=== PATIENT | female | born 1945 | race Caucasian/White ===

== ENCOUNTER 2017-01-12 12:36 | Emergency (ER) | payer MEDICARE ==
[2017-01-12] MEDS ORDERED: Ketorolac INJ* 30 MG/ML 1 ML VIAL IV ONE (13:00)
[2017-01-12] MEDS ORDERED: Morphine INJ* 4 MG/ML 1 ML SYRINGE IV ONE (13:00)
[2017-01-12] MEDS ORDERED: NS 0.9% 1000 ML* 1,000 ML IV ONE (13:00)
[2017-01-12] MEDS ORDERED: Diazepam SYRINGE* 5 MG/ML SYRINGE IV ONE (13:02)
[2017-01-12] MEDS ORDERED: Dexamethasone IV* 4 MG/ML 1 ML (4 MG) IM ONE (13:02)
[2017-01-12] MEDS ORDERED: Morphine INJ* 2 MG/ML 1 ML SYRINGE IV ONE (13:04)
--- NOTE | 2017-01-12 14:08 | RAD ---
HISTORY: Headache COMPARISONS: September 28, 2008 TECHNIQUE: Multiple contiguous axial CT scans were obtained of the head without intravenous contrast. FINDINGS: HEMORRHAGE/INFARCT: There is no hemorrhage or acute infarct. MASSES/SHIFT: There is no mass or shift. EXTRA-AXIAL SPACES: There are no extra-axial fluid collections. SULCI AND VENTRICLES: The sulci and ventricles are normal in size and position for the patient's stated age. CEREBRUM: There are no focal parenchymal abnormalities. BRAINSTEM: There are no focal parenchymal abnormalities. CEREBELLUM: There are no focal parenchymal abnormalities. VESSELS: The vessels are grossly normal. PARANASAL SINUSES: The paranasal sinuses are clear. ORBITS: The orbits are unremarkable. BONES AND SOFT TISSUE: No bone or soft tissue abnormalities are noted. OTHER: None IMPRESSION: NO ACUTE INTRACRANIAL PATHOLOGY.
--- NOTE | 2017-01-12 14:11 | RAD ---
HISTORY: Neck pain COMPARISONS: September 28, 2008 TECHNIQUE: Multiple contiguous axial CT scans were obtained of the cervical spine without intravenous contrast, with coronal and sagittal multiplanar reformations. FINDINGS: BRAIN: The visualized brain is unremarkable CENTRAL CANAL: Evaluation of the central canal is limited on CT technique; however, there is no obvious canalicular mass or epidural hemorrhage. ALIGNMENT: There is straightening of the normal cervical lordosis. VERTEBRAL BODIES: There is multilevel anterolateral marginal osteophyte formation. JOINTS: There is osteoarthritis of the atlantoaxial, uncovertebral, and facet joints MUSCULATURE: Unremarkable INTERVERTEBRAL DISCS: There is diffuse loss of intervertebral disc height. AXIAL IMAGES: C2-C3: There is bilateral vertebral hypertrophy and facet hypertrophy. There is mild left neural foraminal narrowing. There is no osseous central canal stenosis. C3-C4: There is bilateral vertebral and facet hypertrophy. There is moderate bilateral neural foraminal narrowing. There is mild narrowing of the central canal.. C4-C5: There is bilateral vertebral and facet hypertrophy. There is severe right and moderate left neural foraminal narrowing. There is mild narrowing of the central canal. C5-C6: There is no osseous neural foraminal narrowing or central canal stenosis. C6-C7: There is no osseous neural foraminal narrowing or central canal stenosis. C7-T1: There is no osseous neural foraminal narrowing or central canal stenosis. SOFT TISSUES: The visualized soft tissues of the neck are unremarkable. The prevertebral fat stripe is preserved. OTHER: None. IMPRESSION: 1. DEGENERATIVE DISC DISEASE AND OSTEOARTHRITIS. 2. THERE IS MILD NARROWING OF THE CENTRAL CANAL AT C3-C4 AND C4-C5. 3. THERE IS MULTILEVEL NEURAL FORAMINAL NARROWING DESCRIBED ABOVE.
[2017-01-12 14:58] LABS: Hematocrit 37 % (35-47); Hemoglobin 11.7 g/dl (12.0-16.0); Mean Corpuscular HGB Conc 32 g/dl (31-36); Mean Corpuscular Hemoglobin 28 pg (27-31); Mean Corpuscular Volume 88 fL (80-97); Mean Platelet Volume 8 um3 (7.4-10.4); Red Blood Count 4.14 10^6/ul (4.0-5.4); Red Cell Distribution Width 14 % (10.5-15); White Blood Count 11.7 10^3/ul (3.5-10.8)
[2017-01-12 15:03] LABS: Urine Bilirubin Negative (Negative); Urine Glucose Negative (Negative); Urine Nitrite Negative (Negative)
[2017-01-12 15:19] LABS: Albumin 4.2 g/dL (3.2-5.2); Calcium 9.3 mg/dL (8.6-10.3); EGFR African American 44.2 (>60); EGFR Non-African American 34.3 (>60); Globulin 2.8 g/dL (2-4); Potassium 3.4 mmol/L (3.5-5.0); Total Bilirubin 0.3 mg/dL (0.2-1.0)
[2017-01-12] MEDS ORDERED: Potassium Chloride LIQUID* 20 MEQ PACKET PO ONE (15:29)
[2017-01-12 16:04] VITALS: BP 143/70
[2017-01-12 16:41] LABS: Erythrocyte Sed Rate 24 mm/Hr (0-40)
--- NOTE | 2017-01-12 17:56 | ED ---
Marycarmen Villeda Edward, scribed for Garrett Isaac MD on 01/12/17 at 1258 . Neck Pain - HPI Summary HPI Summary: 71 y/o female presents to ED c/o neck pain starting two days ago. The pain in the neck is described as a sharp, burning pain, located on the sides of the neck. The pain is rated 9/10 at triage. Associated sx: intermittent spasms down to her feet, dizziness characterized as room spinning. Denies fever, weakness in extremities. PMHx bone spurs and degenerative arthritis. Pt has chronic intermittent neck pain. - History of Current Complaint Chief Complaint: EDNeckComplaint Stated Complaint: STIFF NECK/DIZZY/HEADACHE Time Seen by Provider: 01/12/17 12:51 Hx Obtained From: Patient Onset/Duration Of Injury/Symptoms: Days Timing: Constant Severity Currently: Severe Pain Intensity: 9 Pain Scale Used: 0-10 Numeric Character: Sharp, Stiff, Burning - Allergies/Home Medications Allergies/Adverse Reactions: Allergies Allergy/AdvReac Type Severity Reaction Status Date / Time Atenolol [From Tenormin] Allergy Severe Wheezing Verified 06/24/16 14:01 Captopril [From Capoten] Allergy Intermediate Coughing Verified 06/24/16 14:01 Ciprofloxacin Allergy Intermediate See Comment Verified 06/24/16 14:01 Clonidine [From Catapres-TTS] Allergy Intermediate Dizziness Verified 06/24/16 14:01 Erythromycin Allergy Intermediate GI Upset Verified 06/24/16 14:01 Nisoldipine Allergy Intermediate Agitation Verified 06/24/16 14:01 Sulfa Drugs Allergy Intermediate Hives Verified 06/24/16 14:01 PMH/Surg Hx/FS Hx/Imm Hx Endocrine/Hematology History: Denies: Hx Diabetes Cardiovascular History: Reports: Hx Angioplasty, Hx Coronary Artery Disease, Hx Hypertension Denies: Hx Pacemaker/ICD Respiratory History: Reports: Hx Asthma - SEASONAL, Hx Sleep Apnea - DOES NOT USE HER C-PAP GI History: Reports: Hx Gastroesophageal Reflux Disease, Other GI Disorders - GASTRIC BYPASS STEVAN EN Y History: Denies: Hx Dialysis, Hx Renal Disease Musculoskeletal History: Reports: Hx Arthritis - NECK, SHOULDERS, Hx Fibromyalgia, Other Musculoskeletal History - FX 2 METATARSALS RIGHT FOOT 2010 Sensory History: Reports: Hx Cataracts - LENS IMPLANTS 2 YRS AGO Denies: Hx Contacts or Glasses, Hx Hearing Aid Opthamlomology History: Reports: Hx Cataracts - LENS IMPLANTS 2 YRS AGO Denies: Hx Contacts or Glasses Neurological History: Reports: Other Neuro Impairments/Disorders - FIBROMYALGIA , NEUROPATHY Psychiatric History: Denies: Hx Panic Disorder - Cancer History Hx Chemotherapy: No Hx Radiation Therapy: No - Surgical History Surgery Procedure, Year, and Place: BILATERAL CATARACTS, GASTRIC BYPASS 08/2010, INTERNAL HERNIA REPAIR 09/2011, DILATED STRICTURE &10/2011, HEART CATH 05/2007, HYSTERECTOMY 10/1980, RT OVARY REMOVED 05/1984 CHOLECYSTECTOMY 12/1993, ANT CYSTOCELE REPAIR 08/1994 Hx Anesthesia Reactions: No Infectious Disease History: Denies: Traveled Outside the [place] in Last 30 Days - Social History Occupation: Retired Lives: With Family Alcohol Use: None Hx Substance Use: No Substance Use Type: Reports: None Hx Tobacco Use: No Smoking Status (MU): Never Smoked Tobacco Have You Smoked in the Last Year: No Review of Systems Constitutional: Negative Eyes: Negative ENT: Negative Cardiovascular: Negative Respiratory: Negative Gastrointestinal: Negative Genitourinary: Negative Positive: Myalgia - Neck pain, with intermittent spasms down to her feet Skin: Negative Neurological: Other - Dizziness Psychological: Normal All Other Systems Reviewed And Are Negative: Yes Physical Exam - Summary Physical Exam Summary: VITAL SIGNS: Reviewed. GENERAL: ~Patient is a well-developed and nourished female who is lying comfortable in the stretcher. ~Patient is not in any acute respiratory distress. HEAD AND FACE: No signs of trauma. ~No ecchymosis, hematomas or skull depressions. No sinus tenderness. EYES: PERRLA, EOMI x 2, No injected conjunctiva, no nystagmus. EARS: Hearing grossly intact. Ear canals and tympanic membranes are within normal limits. MOUTH: Oropharynx within normal limits. NECK: Supple, trachea is midline, no adenopathy, no JVD, no carotid bruit, no c- spine tenderness, neck with full ROM. CHEST: Symmetric, no tenderness at palpation LUNGS: Clear to auscultation bilaterally. No wheezing or crackles. CVS: Regular rate and rhythm, S1 and S2 present, no murmurs or gallops appreciated. ABDOMEN: Soft, non-tender. No signs of distention. No rebound no guarding, and no masses palpated. Bowel sounds are normal. EXTREMITIES: FROM in all major joints, no edema, no cyanosis or clubbing. NEURO: Alert and oriented x 3. No acute neurological deficits. Speech is normal and follows commands. SKIN: Dry and warm MUSCULOSKELETAL: Tenderness @ trapezius and external subclavius muscles bilaterally. No C-Spine tenderness. No photophobia. No meningeal signs. Triage Information Reviewed: Yes Vital Signs On Initial Exam: Initial Vitals Temp Pulse Resp BP Pulse Ox 96.2 F 70 16 161/69 100 01/12/17 12:38 01/12/17 12:38 01/12/17 12:38 01/12/17 12:38 01/12/17 12:38 Vital Signs Reviewed: Yes Diagnostics - Vital Signs Vital Signs Temp Pulse Resp BP Pulse Ox 01/12/17 12:38 96.2 F 70 16 161/69 100 - Laboratory Lab Results: Lab Results 01/12/17 01/12/17 01/12/17 Range/Units 14:38 14:38 14:38 WBC 11.7 H (3.5-10.8) 10^3/ul RBC 4.14 (4.0-5.4) 10^6/ul Hgb 11.7 L (12.0-16.0) g/dl Hct 37 (35-47) % MCV 88 (80-97) fL MCH 28 (27-31) pg MCHC 32 (31-36) g/dl RDW 14 (10.5-15) % Plt Count 278 (150-450) 10^3/ul MPV 8 (7.4-10.4) um3 Neut % (Auto) 85.5 H (38-83) % Lymph % (Auto) 7.8 L (25-47) % [place] % (Auto) 5.4 (1-9) % Eos % (Auto) 1.0 (0-6) % Baso % (Auto) 0.3 (0-2) % Absolute Neuts (auto) 10.1 H (1.5-7.7) 10^3/ul Absolute Lymphs (auto) 0.9 L (1.0-4.8) 10^3/ul Absolute Monos (auto) 0.6 (0-0.8) 10^3/ul Absolute Eos (auto) 0.1 (0-0.6) 10^3/ul Absolute Basos (auto) 0 (0-0.2) 10^3/ul Absolute Nucleated RBC 0 10^3/ul Nucleated RBC % 0 ESR 24 (0-40) mm/Hr Sodium 138 (133-145) mmol/L Potassium 3.4 L (3.5-5.0) mmol/L Chloride 101 (101-111) mmol/L Carbon Dioxide 29 (22-32) mmol/L Anion Gap 8 (2-11) mmol/L BUN 21 (6-24) mg/dL Creatinine 1.50 H (0.51-0.95) mg/dL Est GFR ( Amer) 44.2 (>60) Est GFR (Non-Af Amer) 34.3 (>60) BUN/Creatinine Ratio 14.0 (8-20) Glucose 85 (70-100) mg/dL Calcium 9.3 (8.6-10.3) mg/dL Total Bilirubin 0.30 (0.2-1.0) mg/dL AST 27 (13-39) U/L ALT 25 (7-52) U/L Alkaline Phosphatase 117 H (34-104) U/L Total Protein 7.0 (6.4-8.9) g/dL Albumin 4.2 (3.2-5.2) g/dL Globulin 2.8 (2-4) g/dL Albumin/Globulin Ratio 1.5 (1-3) Urine Color Yellow Urine Appearance Clear Urine pH 6.0 (5-9) Ur Specific [place] 1.011 (1.010-1.030) Urine Protein Negative (Negative) Urine Ketones Negative (Negative) Urine Blood Negative (Negative) Urine Nitrate Negative (Negative) Urine Bilirubin Negative (Negative) Urine Urobilinogen Negative (Negative) Ur Leukocyte Esterase Negative (Negative) Urine Glucose Negative (Negative) Result Diagrams: 01/12/17 14:38 01/12/17 14:38 Lab Statement: Any lab studies that have been ordered have been reviewed, and results considered in the medical decision making process. - CT CSPINE CT CT Interpretation: Positive (See Comments) - 1. DEGENERATIVE DISC DISEASE AND OSTEOARTHRITIS. 2. THERE IS MILD NARROWING OF THE CENTRAL CANAL AT C3-C4 AND C4 -C5. 3. THERE IS MULTILEVEL NEURAL FORAMINAL NARROWING DESCRIBED ABOVE. CT Interpretation Completed By: Radiologist BRAIN CT CT Interpretation: No Acute Changes - NO ACUTE INTRCRANIAL PATHOLOGY CT Interpretation Completed By: Radiologist Neck Course/Dx - Course Assessment/Plan: 71 y/o female presents to ED c/o neck pain starting two days ago. The pain in the neck is described as a sharp, burning pain, located on the sides of the neck. The pain is rated 9/10 at triage. Associated sx: intermittent spasms down to her feet, dizziness characterized as room spinning. Denies fever, weakness in extremities. PMHx bone spurs and degenerative arthritis. Pt has chronic intermittent neck pain. CSPINE CT SHOWS 1. DEGENERATIVE DISC DISEASE AND OSTEOARTHRITIS.2. THERE IS MILD NARROWING OF THE CENTRAL CANAL AT C3-C4 AND C4-C5. 3. THERE IS MULTILEVEL NEURAL FORAMINAL NARROWING DESCRIBED ABOVE. BRAIN CT SHOWS NO ACUTE INTRACRANIAL PATHOLOGY. Test results are without significant abnormalities except WBC 11.7. UA (-) UTI. After the PE, there were no meningeal signs. Pt has no cervical tenderness and no photophobia. Therefore my suspicion for meningitis was low. However, the pt has (+) muscle tenderness and also a hx of fibromyalgia which has probably been worsened with spasms of the upper back and the neck muscles. In the ED course the pt was given Decadron, Toradol, Valium, and Morphine. After these medications the pt reports feeling better. 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 At this point the sx have resolved. The pt is able to ambulate with no abnormal gait, subsided pain and no dizziness. The patient rates the pain at 1/10. She will be d/c home with f/u with PCP. I have no suspicion for dissection since there is no pain any more, no carotid bruits, no CHAMBERLAIN and no other complaints. I discussed all the findings and test results with the patient. Patient was instructed to return to the emergency room immediately if any of the symptoms return or worsens. Plan of care was discussed with the patient and understands and agrees. All questions were answered at patient satisfaction. There were no further complaints or concerns. - Diagnoses Provider Diagnoses: Neck pain, Musculoskeletal pain Discharge - Discharge Plan Condition: Stable Disposition: HOME Prescriptions: Diazepam TAB(*) [Valium TAB(*)] 2 mg PO TID PRN #12 tab MDD 6 mg PRN Reason: Pain Methylprednisolone [Medrol Dosepak 4 MG*] 4 mg PO .SEE HELDER INSTRUCTION #1 helder oxyCODONE/Acetamin 5/325 MG* [Percocet 5/325 TAB*] 1 tab PO Q6H PRN #12 tab MDD 4 PRN Reason: Pain Patient Education Materials: Neck Pain (ED), Musculoskeletal Pain (ED) Referrals: Devang An MD [Primary Care Provider] - 3 Days (PLEASE F/U IN 2-3 DAYS) The documentation as recorded by the Marycarmen roger Edward accurately reflects the service I personally performed and the decisions made by Poncho roland Walter, MD.
== END 2017-01-12 16:22 | disposition home or self-care (01) ==
LOC: ED 12:36
DX: M54.2 Cervicalgia (principal); M79.1 Myalgia; M50.30 Other cervical disc degeneration, unspecified cervical region; Z86.79 Personal history of other diseases of the circulatory system; R51 Headache
CPT/HCPCS: 36415; 70450; 72125; 80053; 81003; 85025; 85652; 96374; 96375; 99283; A9270-GY; J1100; J1885; J2270; J3360

== ENCOUNTER 2017-05-09 12:09 | Emergency (ER) | payer MEDICARE ==
[2017-05-09 12:16] VITALS: BP 172/88
[2017-05-09] MEDS ORDERED: Phenazopyridine TAB* 100 MG PO ONE (12:34)
[2017-05-09 13:03] LABS: Urine Bacteria 1+ (Absent)
--- NOTE | 2017-05-09 15:51 | ED ---
Martina Villeda Gabriel, scribed for Nate Fontana MD on 05/09/17 at 1232 . GI/ HPI - HPI Summary HPI Summary: This patient is a 71 year old F presenting to [facility] with a chief complaint of hematuria since yesterday. The patient rates the pain 9/10 in severity. Symptoms aggravated by urination. Patient reports right sided back pain, decreased urination,ABD pain, pressure in bladder, and increased sensation to urinate. - History of Current Complaint Chief Complaint: EDUrogenitalProblems Time Seen by Provider: 05/09/17 12:25 Stated Complaint: POSSIBLE UTI Hx Obtained From: Patient Onset/Duration: Started Days Ago - 1, Still Present Timing: Constant Current Severity: Moderate Pain Intensity: 9 Location of Pain: Suprapubic Pain Radiates to: Back Associated Signs and Symptoms: Positive: Other: - right sided back pain, decreased urination, ABD pain, pressure in bladder, and increased sensation to urinate. Aggravating Factor(s): Urination - Allergy/Home Medications Allergies/Adverse Reactions: Allergies Allergy/AdvReac Type Severity Reaction Status Date / Time Atenolol [From Tenormin] Allergy Severe Wheezing Verified 06/24/16 14:01 Captopril [From Capoten] Allergy Intermediate Coughing Verified 06/24/16 14:01 Ciprofloxacin Allergy Intermediate See Comment Verified 06/24/16 14:01 Clonidine [From Catapres-TTS] Allergy Intermediate Dizziness Verified 06/24/16 14:01 Erythromycin Allergy Intermediate GI Upset Verified 06/24/16 14:01 Nisoldipine Allergy Intermediate Agitation Verified 06/24/16 14:01 Sulfa Drugs Allergy Intermediate Hives Verified 06/24/16 14:01 PMH/Surg Hx/FS Hx/Imm Hx Previously Healthy: No Endocrine/Hematology History: Denies: Hx Diabetes Cardiovascular History: Reports: Hx Angioplasty, Hx Coronary Artery Disease, Hx Hypertension Denies: Hx Pacemaker/ICD Respiratory History: Reports: Hx Asthma - SEASONAL, Hx Sleep Apnea - DOES NOT USE HER C-PAP GI History: Reports: Hx Gastroesophageal Reflux Disease, Other GI Disorders - GASTRIC BYPASS STEVAN EN Y History: Denies: Hx Dialysis, Hx Renal Disease Musculoskeletal History: Reports: Hx Arthritis - NECK, SHOULDERS, Hx Fibromyalgia, Other Musculoskeletal History - FX 2 METATARSALS RIGHT FOOT 2010 Sensory History: Reports: Hx Cataracts - LENS IMPLANTS 2 YRS AGO Denies: Hx Contacts or Glasses, Hx Hearing Aid Opthamlomology History: Reports: Hx Cataracts - LENS IMPLANTS 2 YRS AGO Denies: Hx Contacts or Glasses Neurological History: Reports: Other Neuro Impairments/Disorders - FIBROMYALGIA , NEUROPATHY Psychiatric History: Denies: Hx Panic Disorder - Cancer History Hx Chemotherapy: No Hx Radiation Therapy: No - Surgical History Surgery Procedure, Year, and Place: BILATERAL CATARACTS, GASTRIC BYPASS 08/2010, INTERNAL HERNIA REPAIR 09/2011, DILATED STRICTURE &10/2011, HEART CATH 05/2007, HYSTERECTOMY 10/1980, RT OVARY REMOVED 05/1984 CHOLECYSTECTOMY 12/1993, ANT CYSTOCELE REPAIR 08/1994 Hx Anesthesia Reactions: No Infectious Disease History: No Infectious Disease History: Denies: Traveled Outside the [place] in Last 30 Days - Family History Known Family History: Positive: Cardiac Disease, Hypertension, Diabetes - Social History Alcohol Use: None Hx Substance Use: No Substance Use Type: Reports: None Hx Tobacco Use: No Smoking Status (MU): Never Smoked Tobacco Have You Smoked in the Last Year: No Review of Systems Positive: Abdominal Pain Positive: burning, hematuria, urgency, other - decreased urination and pressure in bladder Positive: Other - right sided back pain All Other Systems Reviewed And Are Negative: Yes Physical Exam - Summary Physical Exam Summary: Appearance: The patient is well-nourished in no acute distress and in no acute pain. Skin: The skin is warm and dry and skin color reflects adequate perfusion. HEENT: ~The head is normocephalic and atraumatic. The pupils are equal and reactive. The conjunctivae are clear and without drainage. ~Nares are patent and without drainage. ~Mouth reveals moist mucous membranes and the throat is without erythema and exudate. ~The external ears are intact. The ear canals are patent and without drainage. The tympanic membranes are intact. Neck: the neck is supple with full range of motion and non-tender. There are no carotid bruits. ~There is no neck vein distension. Respiratory: Chest is non-tender. ~Lungs are clear to auscultation and breath sounds are symmetrical and equal. Cardiovascular: Heart is regular rate and rhythm. ~There is no murmur or rub auscultated. ~~There is no peripheral edema and pulses are symmetrical and equal. Abdomen: The abdomen is soft with mild suprapubic tenders no CVA. ~There are normal bowel sounds heard in all four quadrants and there is no organomegaly palpated. Bedside US: less than 15cc of urine in bladder Musculoskeletal: There is no back tenderness noted. ~Extremities are non-tender with full range of motion. ~There is good capillary refill. ~There is no peripheral edema or calf tenderness elicited. Neurological: Patient is alert and oriented to person, place and time. ~The patient has symmetrical motor strength in all four extremities. ~Cranial nerves are grossly intact. Deep tendon reflexes are symmetrical and equal in all four extremities. Psychiatric: The patient has an appropriate affect and does not exhibit any anxiety or depression. Triage Information Reviewed: Yes Vital Signs On Initial Exam: Initial Vitals Temp Pulse Resp BP Pulse Ox 98 F 70 16 172/88 98 05/09/17 12:12 05/09/17 12:12 05/09/17 12:12 05/09/17 12:12 05/09/17 12:12 Vital Signs Reviewed: Yes Diagnostics - Vital Signs Vital Signs Temp Pulse Resp BP Pulse Ox 05/09/17 12:12 98 F 70 16 172/88 98 - Laboratory Lab Results: Lab Results 05/09/17 Range/Units 12:44 Urine Color Red A Urine Appearance Urine pH (5-9) Ur Specific [place] 1.024 (1.010-1.030) Urine Protein (Negative) Urine Ketones (Negative) Urine Blood (Negative) Urine Nitrate (Negative) Urine Bilirubin (Negative) Urine Urobilinogen (Negative) Ur Leukocyte Esterase (Negative) Urine WBC (Auto) 3+(>20/hpf) H (Absent) Urine RBC (Auto) 3+(>10/hpf) H (Absent) Urine Bacteria 1+ H (Absent) Urine Glucose (Negative) Urine Ascorbic Acid (Negative) Lab Statement: Any lab studies that have been ordered have been reviewed, and results considered in the medical decision making process. GIGU Course/Dx - Course Course Of Treatment: Ms. Asif presented with dysuria and urgency starting yesterday and getting much worse today with gross hematuria. She had no retained urine on U/S and her U/A was positive for both WBC's and RBC's. I will treat her UTI and recommend F/U. - Diagnoses Provider Diagnoses: UTI (urinary tract infection) Discharge - Discharge Plan Condition: Stable Disposition: HOME Prescriptions: Nitrofurantoin Monohyd Macro [Macrobid] 100 mg PO BID #14 cap Phenazopyridine 200 mg (NF) [Pyridium 200 MG tab *] 200 mg PO TID #9 tab Patient Education Materials: Nitrofurantoin (By mouth), Phenazopyridine (By mouth), Urinary Traction Infection in Older Adults (ED) Referrals: Daren Root MD [Primary Care Provider] - 3 Days Additional Instructions: RETURN TO THE EMERGENCY DEPARTMENT FOR CHANGING OR WORSENING SYMPTOMS. The documentation as recorded by the Martina roger Gabriel accurately reflects the service I personally performed and the decisions made by , Nate Fontana MD.
--- NOTE | 2017-05-11 20:34 | PN ---
Progress Note - Progress Note Date of Service: 05/11/17 Note: Patient urine culture grew E coli >100,000. patient placed on macrobid which final culture shows is sensitive to. no further action needed.
--- NOTE | 2017-05-12 12:20 | ED ---
Progress - Progress Note Progress Note: Pt's final urine cx reveals sens to nitrofurantoin which pt was rx'd- no change at this time. Course/Dx - Course Course Of Treatment: Ms. Asif presented with dysuria and urgency starting yesterday and getting much worse today with gross hematuria. She had no retained urine on U/S and her U/A was positive for both WBC's and RBC's. I will treat her UTI and recommend F/U. - Diagnoses Provider Diagnoses: UTI (urinary tract infection)
== END 2017-05-09 14:08 | disposition home or self-care (01) ==
LOC: ED 12:09
DX: N39.0 Urinary tract infection, site not specified (principal)
CPT/HCPCS: 81003; 87077; 87086; 87186; 99282; A9270-GY

== ENCOUNTER 2017-06-03 17:39 | Observation (INO) | payer MEDICARE ==
[2017-06-03] MEDS ORDERED: Ketorolac INJ* 15 MG/ML 1 ML VIAL IV ONE (19:50)
[2017-06-03] MEDS ORDERED: NS 0.9% 1000 ML* 1,000 ML IV ONE (19:50)
[2017-06-03] MEDS ORDERED: Ondansetron INJ* 2 MG/ML VIAL IV ONE (19:50)
[2017-06-03 20:24] LABS: ABS Basophils 0 10^3/ul (0-0.2); ABS Eosinophils 0.1 10^3/ul (0-0.6); ABS Lymphocytes 0.9 10^3/ul (1.0-4.8); ABS Monocytes 0.5 10^3/ul (0-0.8); ABS Neutrophils 4.3 10^3/ul (1.5-7.7); ABS Nucleated RBC 0 10^3/ul; Eosinophil % 2.4 % (0-6); Hematocrit 41 % (35-47); Hemoglobin 13.3 g/dl (12.0-16.0); Mean Corpuscular HGB Conc 33 g/dl (31-36); Mean Corpuscular Hemoglobin 29 pg (27-31); Mean Corpuscular Volume 90 fL (80-97); Mean Platelet Volume 8 um3 (7.4-10.4); Nucleated Red Blood Cells % 0; Platelet Count 216 10^3/ul (150-450); Red Blood Count 4.53 10^6/ul (4.0-5.4); Red Cell Distribution Width 17 % (10.5-15); White Blood Count 5.9 10^3/ul (3.5-10.8)
[2017-06-03 20:33] LABS: INR 0.93 (0.77-1.02)
[2017-06-03 20:36] LABS: Urine Appearance Clear; Urine Blood 1+ (Negative); Urine Color Straw; Urine Ketones Negative (Negative); Urine Protein Negative (Negative); Urine Specific Gravity 1.005 (1.010-1.030); Urine Urobilinogen Negative (Negative)
[2017-06-03 20:37] LABS: EGFR Non-African American 45.6 (>60)
[2017-06-03] MEDS ORDERED: Iodixanol* (CONTRAST) 320 MG/ML 100 ML SDV IV ONE (21:16)
[2017-06-03] MEDS ORDERED: Piperacillin/Tazobac ADVAN(*) 3.375 GM in NS 0.9% 100 ML* 100 ML IVPB ONE (21:27)
[2017-06-03] MEDS: Morphine INJ* 2 MG/ML 1 ML SYRINGE (TWO MG - NEW SYRINGE VERSION) IV PRN ×2 (22:28→23:02)
[2017-06-03] MEDS ORDERED: Morphine INJ* 4 MG/ML 1 ML CARPUJECT IV ONE (22:59)
[2017-06-04] MEDS ORDERED: Ondansetron INJ* 2 MG/ML VIAL IV PRN (00:15)
[2017-06-04] MEDS ORDERED: CMCS: Melatonin (NF) 3 MG TAB PO PRN (00:15)
--- NOTE | 2017-06-04 00:22 | ED ---
Scotty Villeda Angela, scribed for Esteban Costa MD on 06/03/17 at 1934 . Complex/Multi-Sys Presentation - HPI Summary HPI Summary: This pt is a 72 y/o female [facility] [place] [facility] [place]/o abd pain and back pain. Pt also reports 2 days of a migraine headache, pain after urinating, and an "awful " taste in her mouth. She states she has a history of migraines, usually has them a couple of times a year. Pt notes she comes to the ED for migraine treatment. Denies taking migraine medications at home. She denies fever, diarrhea, vomiting, constipation. Surgeries include hysterectomy and Stevan-en-y gastric bypass. - History Of Current Complaint Chief Complaint: EDAbdPain Time Seen by Provider: 06/03/17 19:19 Hx Obtained From: Patient Onset/Duration: Lasting Days, Still Present Timing: Days Location: Pain At: - abd and back Character: Migraine Associated Signs And Symptoms: Positive: Headache, Abdominal Pain, Back Pain, Dysuria - pain after voiding, Other - NEG: constipation. Negative: Nausea, Vomiting, Diarrhea, Fever - Allergies/Home Medications Allergies/Adverse Reactions: Allergies Allergy/AdvReac Type Severity Reaction Status Date / Time Atenolol [From Tenormin] Allergy Severe Wheezing Verified 06/24/16 14:01 Ciprofloxacin Allergy Mild Tendonitis Verified 06/04/17 00:15 Sulfa Drugs Allergy Mild Hives Verified 06/04/17 00:15 Captopril [From Capoten] AdvReac Mild Coughing Verified 06/04/17 00:15 Clonidine [From Catapres-TTS] AdvReac Mild Dizziness Verified 06/04/17 00:15 Erythromycin AdvReac Mild GI Upset Verified 06/04/17 00:15 Nisoldipine AdvReac Mild Agitation Verified 06/04/17 00:15 PMH/Surg Hx/FS Hx/Imm Hx Endocrine/Hematology History: Denies: Hx Diabetes Cardiovascular History: Reports: Hx Angioplasty, Hx Coronary Artery Disease, Hx Hypertension Denies: Hx Pacemaker/ICD Respiratory History: Reports: Hx Asthma - SEASONAL, Hx Sleep Apnea - DOES NOT USE HER C-PAP GI History: Reports: Hx Gastroesophageal Reflux Disease, Other GI Disorders - GASTRIC BYPASS STEVNA EN Y History: Denies: Hx Dialysis, Hx Renal Disease Musculoskeletal History: Reports: Hx Arthritis - NECK, SHOULDERS, Hx Fibromyalgia, Other Musculoskeletal History - FX 2 METATARSALS RIGHT FOOT 2010 Sensory History: Reports: Hx Cataracts - LENS IMPLANTS 2 YRS AGO Denies: Hx Contacts or Glasses, Hx Hearing Aid Opthamlomology History: Reports: Hx Cataracts - LENS IMPLANTS 2 YRS AGO Denies: Hx Contacts or Glasses Neurological History: Reports: Other Neuro Impairments/Disorders - FIBROMYALGIA , NEUROPATHY Psychiatric History: Denies: Hx Panic Disorder - Cancer History Hx Chemotherapy: No Hx Radiation Therapy: No - Surgical History Surgery Procedure, Year, and Place: BILATERAL CATARACTS, GASTRIC BYPASS 08/2010, INTERNAL HERNIA REPAIR 09/2011, DILATED STRICTURE &10/2011, HEART CATH 05/2007, HYSTERECTOMY 10/1980, RT OVARY REMOVED 05/1984 CHOLECYSTECTOMY 12/1993, ANT CYSTOCELE REPAIR 08/1994 Hx Anesthesia Reactions: No - Immunization History Date of Tetanus Vaccine: UTD Date of Influenza Vaccine: 02/2017 Infectious Disease History: No Infectious Disease History: Denies: Traveled Outside the [place] in Last 30 Days - Family History Known Family History: Positive: Cardiac Disease, Hypertension, Diabetes - Social History Alcohol Use: None Hx Substance Use: No Substance Use Type: Reports: None Hx Tobacco Use: No Smoking Status (MU): Never Smoked Tobacco Have You Smoked in the Last Year: No Review of Systems Negative: Fever ENT: Other - awful taste in mouth Positive: Abdominal Pain. Negative: Diarrhea, Other - constipation Genitourinary: Other - pain after voiding Musculoskeletal: Other - back pain Positive: Headache - migraine All Other Systems Reviewed And Are Negative: Yes Physical Exam - Summary Physical Exam Summary: VITAL SIGNS: Reviewed. GENERAL: Patient is a well-developed and nourished female who is lying comfortable in the stretcher. Patient is not in any acute respiratory distress. HEAD AND FACE: No signs of trauma. No ecchymosis, hematomas or skull depressions. No sinus tenderness. EYES: PERRLA, EOMI x 2, No injected conjunctiva, no nystagmus. EARS: Hearing grossly intact. Ear canals and tympanic membranes are within normal limits. MOUTH: Oropharynx within normal limits. NECK: Supple, trachea is midline, no adenopathy, no JVD, no carotid bruit, no c- spine tenderness, neck with full ROM. CHEST: Symmetric, no tenderness at palpation LUNGS: Clear to auscultation bilaterally. No wheezing or crackles. CVS: Regular rate and rhythm, S1 and S2 present, no murmurs or gallops appreciated. ABDOMEN: Soft. Suprapubic tenderness. No signs of distention. No rebound no guarding, and no masses palpated. Bowel sounds are normal. NO CVA tenderness. EXTREMITIES: FROM in all major joints, no edema, no cyanosis or clubbing. NEURO: Alert and oriented x 3. No acute neurological deficits. Speech is normal and follows commands. SKIN: Dry and warm Triage Information Reviewed: Yes Vital Signs On Initial Exam: Initial Vitals Temp Pulse Resp BP Pulse Ox 97.5 F 65 20 202/90 96 06/03/17 17:41 06/03/17 17:41 06/03/17 17:41 06/03/17 17:41 06/03/17 17:41 Vital Signs Reviewed: Yes Diagnostics - Vital Signs Vital Signs Temp Pulse Resp BP Pulse Ox 06/03/17 17:41 97.5 F 65 20 202/90 96 - Laboratory Result Diagrams: 06/03/17 20:13 06/03/17 20:13 Lab Statement: Any lab studies that have been ordered have been reviewed, and results considered in the medical decision making process. - CT Abdomen/Pelvis CT CT Interpretation: Positive (See Comments) - IMPRESSION: There are mild dependent changes at the lung bases. Small hiatal hernia. Postsurgical changes of a gastric bypass surgery and cholecystectomy are again noted. There is stable small cyst in the left kidney. The upper abdominal visceral organs are otherwise unremarkable. There are mild mesenteric inflammatory changes associated with a loop of ileum in the mid to lower abdomen which could be secondary to enteritis. Correlate for history of inflammatory bowel disease. Enteric diverticulitis and malignancy are considered less likely. There are several mildly distended loops of bowel proximal to this and relatively normal caliber distally with normal progression of contrast to the colon. Findings may represent ileus versus partial obstruction. Colonic diverticulosis predominately sigmoid colon without evidence of acute diverticulitis. The uterus is absent. No intra-abdominal free air, free fluid, or loculated collections. Sclerotic lesion in the left iliac body suspected to be a bone island in the absence of known or suspected malignancy. Dr. Costa has reviewed this radiology report. CT Interpretation Completed By: Radiologist Re-Evaluation - Re-Evaluation First Eval Re-Evaluation Time: 22:58 Comment: I reviewed the CT results with the pt. Complex Multi-Symp Course/Dx Course Of Treatment: This pt is a 72 y/o female presenting to [facility] c/o abd pain and back pain. Pt also reports 2 days of a migraine headache, pain after urinating, and an "awful" taste in her mouth. In the ED course, the pt was given IV fluids, morphine, Toradol, and Zofran. CT abdomen/pelvis shows there are mild mesenteric inflammatory changes associated with a loop of ileum in the mid to lower abdomen which could be secondary to enteritis. Correlate for history of inflammatory bowel disease. Enteric diverticulitis and malignancy are considered less likely. There are several mildly distended loops of bowel proximal to this and relatively normal caliber distally with normal progression of contrast to the colon. Findings may represent ileus versus partial obstruction. I discussed pt care with Dr. Cho, hospitalist, who has agreed to admit the pt. Dx: UTI, small bowel obstruction, and headache. - Diagnoses Provider Diagnoses: Small bowel obstruction, Headache, Urinary tract infection - Physician Notifications Discussed Care Of Patient With: Alexx Cho Time Discussed With Above Provider: 00:11 Instructed by Provider To: Other - I discussed pt care with Dr. Cho, hospitalist, who has agreed to admit the pt. Discharge - Discharge Plan Condition: Stable Disposition: ADMITTED TO [facility] Referrals: Daren Root MD [Primary Care Provider] - The documentation as recorded by the Scotty roger Angela accurately reflects the service I personally performed and the decisions made by me, Esteban Costa MD.
[2017-06-04] MEDS: NS 0.9% 1000 ML* 1,000 ML IV SCH ×2 (03:09→13:24)
[2017-06-04] MEDS ORDERED: Morphine INJ* 2 MG/ML 1 ML SYRINGE (TWO MG - NEW SYRINGE VERSION) ONE (03:22)
--- NOTE | 2017-06-04 05:58 | HP ---
H&P (Free Text) History and Physical: PCP: ASHWINI Root MD Date/Time: 06/04/2017 0010 CC: abdominal & LBP pain HPI: Mrs Asif is a 72YO female HX fibromyalgia, Ruen-Y, Raynauds, & CAD reporting onset of lower abdominal pain reminiscent of a UTI ~12 days ago which she has been monitoring, but it has been gradually progressing prompting this evaluation. She does report dysuria without frequency or urgency. She denies chest pain, SOB, palpitations, urgency/frequency of urine, chest pain, F/C, N/V , sweats, or other issues. Bowel movements are unchanged. PMedHx fibromyalgia L femoral neuralgia CAD Menier's disease Raynaud's GERD Ambulatory Orders Nursing to reconcile. Amitriptyline TAB* [Elavil TAB*] 50 mg PO BEDTIME 03/31/12 Aspirin [Aspir-81] 81 mg PO QPM 03/31/12 Biotin [Biotin Forte] 5 mg PO QPM 03/31/12 Cyanocobalamin [Vitamin B 12] 100 mcg PO QAM 03/31/12 DULoxetine CAP* [Cymbalta CAP*] 60 mg PO QPM 03/31/12 Omeprazole CAP* [Prilosec CAP* 20 MG] 40 mg PO BID 03/31/12 Potassium Chlor TAB* [Klor Con 10 ER TAB*] 10 meq PO QID 03/31/12 Gabapentin 300 mg PO QPM 10/11/13 Calcium W/ Vitamins D & K [Calcium + D] 1 chw PO BID 05/02/15 Diazepam TAB(*) [Valium TAB(*)] 2.5 mg PO BID 05/02/15 Simvastatin TAB(NF) [Zocor(NF)] 20 mg PO 1700 05/02/15 Triamterene/HCTZ 37.5-25 MG* [Dyazide CAP*] 1 cap PO QAM 05/02/15 Diltiazem CD CAP* [Cardizem CD CAP*] 240 mg PO DAILY 06/24/16 Diazepam TAB(*) [Valium TAB(*)] 2 mg PO TID PRN #12 tab MDD 6 mg 01/12/17 Sucralfate TAB* [Carafate*] 1 gm PO ACHS 05/13/17 Allergies Atenolol [From Tenormin] Allergy (Severe, Verified 06/24/16 14:01) Wheezing Ciprofloxacin Allergy (Mild, Verified 06/04/17 00:15) Tendonitis Sulfa Drugs Allergy (Mild, Verified 06/04/17 00:15) Hives Captopril [From Capoten] Adverse Reaction (Mild, Verified 06/04/17 00:15) Coughing Clonidine [From Catapres-TTS] Adverse Reaction (Mild, Verified 06/04/17 00:15) Dizziness Dizziness/Insomnia Erythromycin Adverse Reaction (Mild, Verified 06/04/17 00:15) GI Upset GI Upset/Rash Nisoldipine Adverse Reaction (Mild, Verified 06/04/17 00:15) Agitation PSurgHx ventral hernia repair 2014 OU cataract extractions 2013 internal hernia repair 2011 Ruen-Y 2011 cholecystectomy 1994 hysterectomy 1980 SocHx: no tobacco, <1 beer/week, no recreational drugs; lives with her ; 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; full code status FamHx: reviewed, non-contributory to presentation ROS: as above, otherwise reviewed and all were negative vitals: Vital Signs Temp 36.6 C 06/04/17 02:54 Pulse 60 06/04/17 02:54 Resp 18 06/04/17 03:23 BP 170/67 06/04/17 02:54 Pulse Ox 94 06/04/17 02:54 Intake & Output 06/03/17 06/03/17 06/04/17 11:59 23:59 11:59 Intake Total 1100 0 Output Total 400 Balance 1100 -400 Weight 77.111 kg 74.843 kg Intake: IV Fluids 1100 Oral 0 Output: Urine 400 Constitutional: NAD, normally developed, overweight white female HEENM: atraumatic; sclera/conjunctiva: anicteric/clear; hearing: clinically intact; oropharynx: clear, mucosa moist Neck: soft tissue: non-tender; thyroid: normal Pulmonary: clear to auscultation bilaterally, good aeration, no accessory muscle use CV: RR/RR, normal S1S2, no carotid bruit, no jugular venous distention, 2+ B DP/ PT, no edema Abdominal: soft, non-distended, diffusely mildly tender, no rebound/guarding/ rigidity, normoactive bowel sounds, no hepatosplenomegaly or masses, no costovertebral angle tenderness Musculoskeletal: general: grossly intact, no palpable tenderness Integumental: normal appearance and texture of exposed skin Psychiatric orientation: AA&O to PPS affect: calm mood: cooperative eye contact: good content: reliable responses: timely insight: good Testing: Lab Results 06/03/17 06/03/17 06/03/17 Range/Units 20:13 20:13 20:13 WBC 5.9 (3.5-10.8) 10^3/ul RBC 4.53 (4.0-5.4) 10^6/ul Hgb 13.3 (12.0-16.0) g/dl Hct 41 (35-47) % MCV 90 (80-97) fL MCH 29 (27-31) pg MCHC 33 (31-36) g/dl RDW 17 H (10.5-15) % Plt Count 216 (150-450) 10^3/ul MPV 8 (7.4-10.4) um3 Neut % (Auto) 73.0 (38-83) % Lymph % (Auto) 16.0 L (25-47) % Mcminn % (Auto) 8.3 (1-9) % Eos % (Auto) 2.4 (0-6) % Baso % (Auto) 0.3 (0-2) % Absolute Neuts (auto) 4.3 (1.5-7.7) 10^3/ul Absolute Lymphs (auto) 0.9 L (1.0-4.8) 10^3/ul Absolute Monos (auto) 0.5 (0-0.8) 10^3/ul Absolute Eos (auto) 0.1 (0-0.6) 10^3/ul Absolute Basos (auto) 0 (0-0.2) 10^3/ul Absolute Nucleated RBC 0 10^3/ul Nucleated RBC % 0 INR (Anticoag Therapy) 0.93 (0.77-1.02) APTT 32.3 (26.0-36.3) seconds Sodium 137 (133-145) mmol/L Potassium 3.4 L (3.5-5.0) mmol/L Chloride 101 (101-111) mmol/L Carbon Dioxide 29 (22-32) mmol/L Anion Gap 7 (2-11) mmol/L BUN 14 (6-24) mg/dL Creatinine 1.17 H (0.51-0.95) mg/dL Est GFR ( Amer) 58.6 (>60) Est GFR (Non-Af Amer) 45.6 (>60) BUN/Creatinine Ratio 12.0 (8-20) Glucose 115 H (70-100) mg/dL Calcium 9.9 (8.6-10.3) mg/dL Magnesium 2.1 (1.9-2.7) mg/dL Total Bilirubin 0.40 (0.2-1.0) mg/dL AST 23 (13-39) U/L ALT 31 (7-52) U/L Alkaline Phosphatase 110 H (34-104) U/L C-Reactive Protein 1.92 (< 5.00) mg/L Total Protein 7.0 (6.4-8.9) g/dL Albumin 4.4 (3.2-5.2) g/dL Globulin 2.6 (2-4) g/dL Albumin/Globulin Ratio 1.7 (1-3) Amylase 47 (29-103) U/L Urine Color Urine Appearance Urine pH (5-9) Ur Specific [place] (1.010-1.030) Urine Protein (Negative) Urine Ketones (Negative) Urine Blood (Negative) Urine Nitrate (Negative) Urine Bilirubin (Negative) Urine Urobilinogen (Negative) Ur Leukocyte Esterase (Negative) Urine WBC (Auto) (Absent) Urine RBC (Auto) (Absent) Ur Squamous Epith Cells (Absent) Urine Bacteria (Absent) Urine Glucose (Negative) 06/03/17 Range/Units 20:13 WBC (3.5-10.8) 10^3/ul RBC (4.0-5.4) 10^6/ul Hgb (12.0-16.0) g/dl Hct (35-47) % MCV (80-97) fL MCH (27-31) pg MCHC (31-36) g/dl RDW (10.5-15) % Plt Count (150-450) 10^3/ul MPV (7.4-10.4) um3 Neut % (Auto) (38-83) % Lymph % (Auto) (25-47) % Mcminn % (Auto) (1-9) % Eos % (Auto) (0-6) % Baso % (Auto) (0-2) % Absolute Neuts (auto) (1.5-7.7) 10^3/ul Absolute Lymphs (auto) (1.0-4.8) 10^3/ul Absolute Monos (auto) (0-0.8) 10^3/ul Absolute Eos (auto) (0-0.6) 10^3/ul Absolute Basos (auto) (0-0.2) 10^3/ul Absolute Nucleated RBC 10^3/ul Nucleated RBC % INR (Anticoag Therapy) (0.77-1.02) APTT (26.0-36.3) seconds Sodium (133-145) mmol/L Potassium (3.5-5.0) mmol/L Chloride (101-111) mmol/L Carbon Dioxide (22-32) mmol/L Anion Gap (2-11) mmol/L BUN (6-24) mg/dL Creatinine (0.51-0.95) mg/dL Est GFR ( Amer) (>60) Est GFR (Non-Af Amer) (>60) BUN/Creatinine Ratio (8-20) Glucose (70-100) mg/dL Calcium (8.6-10.3) mg/dL Magnesium (1.9-2.7) mg/dL Total Bilirubin (0.2-1.0) mg/dL AST (13-39) U/L ALT (7-52) U/L Alkaline Phosphatase (34-104) U/L C-Reactive Protein (< 5.00) mg/L Total Protein (6.4-8.9) g/dL Albumin (3.2-5.2) g/dL Globulin (2-4) g/dL Albumin/Globulin Ratio (1-3) Amylase (29-103) U/L Urine Color Straw Urine Appearance Clear Urine pH 7.0 (5-9) Ur Specific [place] 1.005 L (1.010-1.030) Urine Protein Negative (Negative) Urine Ketones Negative (Negative) Urine Blood 1+ H (Negative) Urine Nitrate Negative (Negative) Urine Bilirubin Negative (Negative) Urine Urobilinogen Negative (Negative) Ur Leukocyte Esterase 2+ H (Negative) Urine WBC (Auto) 2+(11-20/hpf) H (Absent) Urine RBC (Auto) Trace(0-2/hpf) (Absent) Ur Squamous Epith Cells Present H (Absent) Urine Bacteria Absent (Absent) Urine Glucose Negative (Negative) CT abd/pel, personally reviewed: FINDINGS: There are mild dependent changes at the lung bases. Small hiatal hernia. Post-surgical changes of gastric bypass surgery and cholecystectomy are again noted. There is a small stable cyst in the left kidney. The upper abdominal visceral organs are otherwise unremarkable. There are mild mesenteric inflammatory changes associated with a loop of ileum in the mid- to lower abdomen which could be secondary to enteritis. Correlate for history of inflammatory bowel disease. Enteric diveriticulitis and malignancy considered less likely. There are several mildly distended loops of bowel proximal to this and relatively normal caliber distally with normal progression of contrast to the colon. Findings may represent ileus vs partial obstruction. Colonic diverticulosis predominately sigmoid colon without evidence of acute diverticulitis. The uterus is absent. No intra-abdominal free air, free fluid, or loculated collections.Sclerotic lesion in the left iliac body suspected to be a bone island in the absence of known or suspected malignancy. Impression: 72F presenting with constellation most consistent with partial SBO DIAGNOSIS & PLAN Primary partial SBO : NPO x/ meds w/ sips H2O : IVFs : pain control : consider surgical consult if not improvement w/i 48h, sooner for worsening : supportive care Secondary fibromyalgia : review meds once reconciled L femoral neuralgia : review meds once reconciled CAD : review meds once reconciled Raynaud's : no acute issues GERD : omeprazole Admission Rational: inpatient for pSBO not anticipated to be adequately resolved w/i 48h to allow for discharge DVTp: heparin SQ & SCDs Code Status: full HCP:
[2017-06-04] MEDS ORDERED: Omeprazole CAP* 20 MG PO SCH (06:00)
[2017-06-04 06:02] LABS: Hematocrit 37 % (35-47); Hemoglobin 12.4 g/dl (12.0-16.0); Mean Corpuscular HGB Conc 34 g/dl (31-36); Mean Corpuscular Hemoglobin 30 pg (27-31); Mean Corpuscular Volume 90 fL (80-97); Mean Platelet Volume 8 um3 (7.4-10.4); Platelet Count 214 10^3/ul (150-450); Red Blood Count 4.13 10^6/ul (4.0-5.4); Red Cell Distribution Width 17 % (10.5-15); White Blood Count 3.8 10^3/ul (3.5-10.8)
[2017-06-04 06:14] LABS: EGFR Non-African American 44.7 (>60)
--- NOTE | 2017-06-04 07:36 | RAD ---
INDICATION: Abdominal pain. COMPARISON: Comparison is made with a prior CT of the abdomen and pelvis from March 31, 2012. TECHNIQUE: A CT scan of the abdomen and pelvis was performed with intravenous and oral contrast following intravenous injection of 96 ml of Visipaque 320 nonionic contrast. Contiguous axial sections were obtained from the lung bases through the symphysis pubis. Images were reconstructed in the coronal and sagittal planes. FINDINGS: The lung bases are clear. No pleural effusion is present. The liver and spleen are normal in size without significant focal abnormality. The patient is status post cholecystectomy. The pancreas appears to be within normal limits. The kidneys and adrenal glands are normal in size. No hydronephrosis is seen. There is a small 1 cm left renal cyst. The aorta is normal in caliber with moderate calcific plaque present. No significant enlarged retroperitoneal lymph nodes are seen. There appears to be a small hiatal hernia. There is a Shane-en-Y gastric bypass surgery. The excluded stomach appears nondistended. The small bowel and colon are nondistended. There is thickening of the wall of a mid small bowel loop in the lower abdomen with interstitial stranding in the adjacent mesentery differential diagnosis would include enteritis, less likely inflammatory bowel disease, enteric diverticulitis or malignancy. The appendix is not visualized. There is no evidence for colitis. The patient is status post hysterectomy. No free intraperitoneal air or fluid is seen. There is a sclerotic lesion in the medial aspect of the left iliac bone which is unchanged from the prior exam and therefore an incidental finding. No other focal osseous normality is seen. IMPRESSION: THERE IS MILD BOWEL WALL THICKENING AND MESENTERIC INFLAMMATORY CHANGES ASSOCIATED WITH A LOOP OF MID ILEUM IN THE LOWER ABDOMEN SUGGESTIVE OF ENTERITIS LESS LIKELY INFLAMMATORY BOWEL DISEASE, ENTERIC DIVERTICULITIS OR MALIGNANCY. RECOMMEND CLINICAL CORRELATION AND FOLLOW-UP.
--- NOTE | 2017-06-04 07:49 | RAD ---
HISTORY: Follow-up partial small bowel obstruction COMPARISONS: CT dated June 03, 2021 VIEWS: Frontal supine and upright views of the abdomen. FINDINGS: BOWEL: There is distention and mild dilatation of small bowel loops. Oral contrast reaches the colon. There is large amount of stool within the colon. CALCULI: Contrast is noted within the renal collecting system and bladder. BONES AND SOFT TISSUES: Mild degenerative changes are noted OTHER FINDINGS: The lung bases are clear. There is no subphrenic gas. IMPRESSION: AGAIN NOTED IS DISTENTION MILD DILATATION OF SMALL BOWEL LOOPS, THOUGH ORAL CONTRAST REACHES THE COLON, CONSISTENT WITH PARTIAL OR INTERMITTENT SMALL BOWEL OBSTRUCTION. THE APPEARANCE IS SIMILAR TO THE JUNE 03, 2009 EXAMINATION.
[2017-06-04] MEDS: Diltiazem CD CAP* 240 MG PO SCH (11:48)
[2017-06-04] MEDS: Morphine INJ* 2 MG/ML 1 ML SYRINGE (TWO MG - NEW SYRINGE VERSION) IV PRN ×2 (13:22→19:32)
[2017-06-04] MEDS: Omeprazole CAP* 20 MG PO SCH (21:26)
--- NOTE | 2017-06-04 21:39 | PN ---
Subjective Date of Service: 06/04/17 Interval History: Patient complains of continued lower abdominal pain similar in character to that present before admission but not worse. Patient had no BM today but is passing gas. Patient is hungry. Patient denies F/C, N/V, Dysuria, CP, SOB, dizziness, CHAMBERLAIN, changes in vision, or other pain. Patient complains of intermittent heartburn. Family History: Unchanged from Admission Social History: Unchanged from Admission Past Medical History: Unchanged from Admission Objective Active Medications: Acetaminophen (Tylenol Tab*) 650 mg PO Q6H PRN PRN Reason: FEVER/PAIN Diltiazem HCl (Cardizem Cd Cap*) 240 mg PO DAILY [facility] Last Admin: 06/04/17 11:48 Dose: 240 mg Heparin Sodium (Porcine) (Heparin Vial(*)) 5,000 units SUBCUT Q8HR [facility] Sodium Chloride (Ns 0.9% 1000 Ml*) 1,000 mls @ 100 mls/hr IV PER RATE [facility] Last Admin: 06/04/17 13:24 Dose: 100 mls/hr Melatonin (Melatonin (Nf)) 3 mg PO BEDTIME PRN; Protocol PRN Reason: Sleep Morphine Sulfate (Morphine Inj (Syringe)*) 2 mg IV Q4H PRN PRN Reason: PAIN Last Admin: 06/04/17 19:32 Dose: 2 mg Omeprazole (Prilosec Cap*) 40 mg PO BID [facility] Last Admin: 06/04/17 21:26 Dose: 40 mg Ondansetron HCl (Zofran Inj*) 4 mg IV Q6H PRN PRN Reason: NAUSEA Vital Signs - 8 hr 06/04/17 06/04/17 06/04/17 14:58 15:15 19:07 Temperature 98.3 F 98.5 F Pulse Rate 69 65 Respiratory 16 14 16 Rate Blood Pressure 132/82 161/64 (mmHg) O2 Sat by Pulse 91 97 Oximetry 06/04/17 06/04/17 19:32 19:36 Temperature Pulse Rate Respiratory 18 18 Rate Blood Pressure (mmHg) O2 Sat by Pulse Oximetry Oxygen Devices in Use Now: None Appearance: Patient is a 72yo female who appears stated age sitting in the bed in NAD. Eyes: No Scleral Icterus, PERRLA Ears/Nose/Mouth/Throat: NL Teeth, Lips, Gums, Clear Oropharnyx, Mucous Membranes Moist Neck: NL Appearance and Movements; NL JVP, Trachea Midline Respiratory: Symmetrical Chest Expansion and Respiratory Effort, Clear to Auscultation Cardiovascular: NL Sounds; No Murmurs; No JVD, RRR, No Edema Abdominal: No Hepatosplenomegaly, - - Tenderness to palpation without rebound or guarding in lower abdomen. No CVA tenderness Lymphatic: No Cervical Adenopathy Extremities: No Edema, No Clubbing, Cyanosis Skin: No Rash or Ulcers, No Nodules or Sclerosis, - - Scars consistent with previous abdominal surgery. Neurological: Alert and Oriented x 3, NL Sensation, NL Muscle Strength and Tone Result Diagrams: 06/04/17 05:17 06/04/17 05:17 Assess/Plan/Problems-Billing Assessment: Patient is a 72yo female with a PMH significant for gastric bypass, GERD, fibromyalgia and raynaud's who presents with a partial SBO and is being monitored with serial abdominal exams and being given supportive care. - Patient Problems (1) Partial small bowel obstruction Current Visit: Yes Status: Acute Code(s): K56.600 - PARTIAL INTESTINAL OBSTRUCTION, UNSPECIFIED TO CAUSE SNOMED Code(s): 953368428 Comment: Partial SBO on CT scan still present on KUB in AM. Patient still has pain though has no N/V and is still passing gas. Will continue watchful waiting, KUB in AM. Fluids due to NPO. Pain control. Will consult surgery if becomes obstipated or has significant increase in pain or n/v. (2) GERD without esophagitis Current Visit: Yes Status: Acute Code(s): K21.9 - GASTRO-ESOPHAGEAL REFLUX DISEASE WITHOUT ESOPHAGITIS SNOMED Code(s): 932643289 Comment: GERD symptoms in hospital. Recent EGD showed no ulcer or esophagitis. Continue Omeprazole. (3) Fibromyalgia Current Visit: Yes Status: Acute Code(s): M79.7 - FIBROMYALGIA SNOMED Code (s): 823933640 Comment: Patient complains of pain only in abdomen. (4) CAD (coronary artery disease) Current Visit: Yes Status: Acute Code(s): I25.10 - ATHSCL HEART DISEASE OF [place] CORONARY ARTERY W/O ANG PCTRS SNOMED Code(s): 80348398 Comment: No signs of [place]. Continue ASA and Lipitor. (5) DVT prophylaxis Current Visit: Yes Status: Acute Code(s): WLE3103 - SNOMED Code(s): 370536578 Comment: Heparin SubQ (6) Full code status Current Visit: Yes Status: Acute Code(s): Z78.9 - OTHER SPECIFIED HEALTH STATUS SNOMED Code(s): 003681893 Status and Disposition: Patient is admitted inpatient for partial SBO treated conservatively with watchful waiting.
[2017-06-04] MEDS: Acetaminophen TAB* 325 MG PO PRN (21:55)
[2017-06-05] MEDS: Acetaminophen TAB* 325 MG PO PRN ×2 (04:23→21:01)
[2017-06-05] MEDS ORDERED: Heparin VIAL(*) 5000 UNITS/ML VIAL (FIVE THOUSAND) SUBCUT SCH (06:00)
[2017-06-05 06:47] LABS: ABS Basophils 0 10^3/ul (0-0.2); ABS Eosinophils 0.1 10^3/ul (0-0.6); ABS Lymphocytes 0.6 10^3/ul (1.0-4.8); ABS Monocytes 0.3 10^3/ul (0-0.8); ABS Neutrophils 3.9 10^3/ul (1.5-7.7); ABS Nucleated RBC 0 10^3/ul; Eosinophil % 2.8 % (0-6); Hematocrit 37 % (35-47); Hemoglobin 12.3 g/dl (12.0-16.0); Lymphocyte % 12.8 % (25-47); Mean Corpuscular HGB Conc 33 g/dl (31-36); Mean Corpuscular Hemoglobin 30 pg (27-31); Mean Corpuscular Volume 90 fL (80-97); Mean Platelet Volume 8 um3 (7.4-10.4); Nucleated Red Blood Cells % 0; Platelet Count 189 10^3/ul (150-450); Red Blood Count 4.13 10^6/ul (4.0-5.4); Red Cell Distribution Width 17 % (10.5-15)
[2017-06-05 07:01] LABS: EGFR Non-African American 51.1 (>60)
--- NOTE | 2017-06-05 08:31 | RAD ---
INDICATION: Small bowel obstruction. COMPARISON: Comparison is made with a prior study from June 04, 2017. TECHNIQUE: Frontal supine films of the abdomen were obtained. FINDINGS: Air and contrast is seen within the small large bowel. There is mild small bowel distention which is slightly improved from the prior study. Multiple surgical clips project in the right upper quadrant consistent with a prior cholecystectomy. There is also a single surgical clip which projects over the pelvis to the left of the midline. There are multiple surgical sutures in the left upper quadrant. IMPRESSION: NONSPECIFIC GAS PATTERN.
[2017-06-05] MEDS: Omeprazole CAP* 20 MG PO SCH ×2 (08:56→21:00)
[2017-06-05] MEDS: Diltiazem CD CAP* 240 MG PO SCH (08:56)
[2017-06-05] MEDS: Morphine INJ* 2 MG/ML 1 ML SYRINGE (TWO MG - NEW SYRINGE VERSION) IV PRN (12:17)
[2017-06-05] MEDS: DULoxetine DR CAP* 60 MG CAP.DR PO SCH (14:23)
--- NOTE | 2017-06-05 16:13 | PN ---
Subjective Date of Service: 06/05/17 Interval History: Patient seen and examined. No acute overnight events. States she feels some acid reflex when taking her pills, but no overt n/v. States she had a headache earlier as well. Passing flatus intermittently. No BM. Mild crampy pain in the RLQ only. Family History: Unchanged from Admission Social History: Unchanged from Admission Past Medical History: Unchanged from Admission Objective Active Medications: Acetaminophen (Tylenol Tab*) 650 mg PO Q6H PRN PRN Reason: FEVER/PAIN Last Admin: 06/05/17 04:23 Dose: 650 mg Diltiazem HCl (Cardizem Cd Cap*) 240 mg PO DAILY [facility] Last Admin: 06/05/17 08:56 Dose: 240 mg Duloxetine HCl (Cymbalta Cap*) 60 mg PO DAILY [facility] Last Admin: 06/05/17 14:23 Dose: 60 mg Heparin Sodium (Porcine) (Heparin Vial(*)) 5,000 units SUBCUT Q8HR [facility] Lactated Ringer's (Lactated Ringers 1000 Ml Bag*) 1,000 mls @ 100 mls/hr IV ONCE ONE Stop: 06/05/17 18:48 Last Admin: 06/05/17 08:57 Dose: 100 mls/hr Melatonin (Melatonin (Nf)) 3 mg PO BEDTIME PRN; Protocol PRN Reason: Sleep Omeprazole (Prilosec Cap*) 40 mg PO BID [facility] Last Admin: 06/05/17 08:56 Dose: 40 mg Ondansetron HCl (Zofran Inj*) 4 mg IV Q6H PRN PRN Reason: NAUSEA Last Admin: 06/05/17 12:16 Dose: 4 mg Polyethylene Glycol/Electrolytes (Miralax*) 17 gm PO DAILY [facility] Sucralfate (Sucralfate Susp) 1 gm PO ACHS [facility] Vital Signs - 8 hr 06/05/17 06/05/17 06/05/17 11:46 12:17 13:20 Temperature 97.6 F Pulse Rate 65 Respiratory 16 16 16 Rate Blood Pressure 164/64 (mmHg) O2 Sat by Pulse 97 Oximetry 06/05/17 15:50 Temperature 98.0 F Pulse Rate 61 Respiratory 18 Rate Blood Pressure 174/61 (mmHg) O2 Sat by Pulse 97 Oximetry Oxygen Devices in Use Now: None Appearance: Alert, ambulatory, NAD Eyes: PERRLA Ears/Nose/Mouth/Throat: NL Teeth, Lips, Gums Neck: NL Appearance and Movements; NL JVP, Trachea Midline Respiratory: Symmetrical Chest Expansion and Respiratory Effort, Clear to Auscultation Cardiovascular: NL Sounds; No Murmurs; No JVD, RRR, No Edema Abdominal: NL Sounds; No Tenderness; No Distention, - - soft, hypoactive BS noted, passing flatus Extremities: No Edema, No Clubbing, Cyanosis Skin: No Rash or Ulcers Neurological: Alert and Oriented x 3, NL Sensation, NL Gait, NL Muscle Strength and Tone Nutrition: - - tolerating sips of water with meds, no vomiting Result Diagrams: 06/05/17 06:30 06/05/17 06:30 Diagnostic Imaging: Patient Name: CARLYLE GIANG Medical Record#: [id number] Ordering Physician: Steven OLIVEIRA Acct.#: [id number] : 1945 Age: 72 Sex: F Location: SURGICAL STAY UNIT Exam Date: 06/05/17599 ADM Status: ADM IN Order Information: ABDOMEN/KUB 1 VW Accession Number: [id number] CPT: 30035 INDICATION: Small bowel obstruction. COMPARISON: Comparison is made with a prior study from June 04, 2017. TECHNIQUE: Frontal supine films of the abdomen were obtained. FINDINGS: Air and contrast is seen within the small large bowel. There is mild small bowel distention which is slightly improved from the prior study. Multiple surgical clips project in the right upper quadrant consistent with a prior cholecystectomy. There is also a single surgical clip which projects over the pelvis to the left of the midline. There are multiple surgical sutures in the left upper quadrant. IMPRESSION: NONSPECIFIC GAS PATTERN. <Electronically signed by Cristóbal Donato MD in [place]> 06/05/17826 Dictated By: Cristóbal Donato MD Dictated Date/Time: 06/05/17826 Transcribed Date/Time: 06/05/17820 Assess/Plan/Problems-Billing Assessment: Patient is a 72yo female with a PMH significant for gastric bypass, GERD, fibromyalgia and raynaud's who presents with a partial SBO, being managed conservatively with IV fluids and bowel rest. - Patient Problems (1) DVT prophylaxis Code(s): QXC4214 - SNOMED Code(s): 392581048 Comment: - Heparin SubQ (2) Fibromyalgia Code(s): M79.7 - FIBROMYALGIA SNOMED Code(s): 839501405 Comment: - Not in a flare (3) Full code status Code(s): Z78.9 - OTHER SPECIFIED HEALTH STATUS SNOMED Code(s): 291857991 (4) GERD without esophagitis Code(s): K21.9 - GASTRO-ESOPHAGEAL REFLUX DISEASE WITHOUT ESOPHAGITIS SNOMED Code(s): 971197456 Comment: - Likely r/t gastric bypass - Continue omeprazole - Restart carafate today (5) Partial small bowel obstruction Code(s): K56.600 - PARTIAL INTESTINAL OBSTRUCTION, UNSPECIFIED TO CAUSE SNOMED Code(s): 768670759 Comment: - Abdominal exam is essentially benign - No n/v, continues to pass flatus - Will trial clear liquids tonight - Recommend bowel regimen to prevent obstipation - Continue IVF and ambulation - DC morphine Status and Disposition: Remain inpatient for IVF and slowly advance diet. Counseling and/or Coordination of Care Minutes: coordinated with patient and staff
[2017-06-05] MEDS: Sucralfate SUSP 1 GM/10 ml 10 ML UDC PO SCH ×2 (16:47→20:58)
[2017-06-05] MEDS: Heparin VIAL(*) 5000 UNITS/ML VIAL (FIVE THOUSAND) SUBCUT SCH ×2 (16:47→22:04)
[2017-06-05] MEDS: Polyethylene Glycol 3350* 17 GM PACKET PO SCH (16:48)
[2017-06-06] MEDS: Heparin VIAL(*) 5000 UNITS/ML VIAL (FIVE THOUSAND) SUBCUT SCH (05:58)
[2017-06-06] MEDS: Acetaminophen TAB* 325 MG PO PRN (06:02)
[2017-06-06] MEDS ORDERED: Potassium Chlor TAB* 10 MEQ TAB.ER PO SCH (09:00)
[2017-06-06] MEDS: Omeprazole CAP* 20 MG PO SCH (09:32)
[2017-06-06] MEDS: Sucralfate SUSP 1 GM/10 ml 10 ML UDC PO SCH (09:32)
[2017-06-06] MEDS: Diltiazem CD CAP* 240 MG PO SCH (09:33)
[2017-06-06] MEDS: Polyethylene Glycol 3350* 17 GM PACKET PO SCH (09:33)
[2017-06-06] MEDS: DULoxetine DR CAP* 60 MG CAP.DR PO SCH (09:33)
[2017-06-06 11:37] VITALS: BP 138/63
--- NOTE | 2017-06-07 09:30 | DS ---
CC: Dr. Root * DISCHARGE SUMMARY: DATE OF ADMISSION: 06/04/17 DATE OF DISCHARGE: 06/06/17 PRIMARY CARE PROVIDER: Dr. Root ATTENDING PHYSICIAN: Camila Zarate MD * (DICTATED BY EZE REZA NP) HOSPITAL COURSE: This is a very pleasant 72-year-old female who presented to the emergency department on the with a complaint of intractable abdominal pain. The patient did report a history of several abdominal surgeries in the past including gastric bypass, a Shane-en-Y procedure and a UTI. She said the pain did feel like her UTI that she has had in the past, but she denied any frequency or urgency. She did have some dysuria, however, but she had no fever or chills and the UTI had been treated about 2 weeks prior, but again she did have gallbladder removal surgery. She does have history of fibromyalgia and also she had some ongoing nausea. She does have GERD in the past which has been quite serious and the pain had been constant and increasing in intensity throughout the day. CAT scan and subsequent x-ray of the abdomen showed a partial small bowel obstruction. Findings also showed a colonic diverticulosis primarily in the sigmoid colon without diverticulitis. The patient was admitted for conservative management of her partial small bowel obstruction. She was kept n.p.o. except for medication. She was given IV fluid for hydration and pain control. Within 48 hours, the patient's symptoms were improving significantly. Her followup abdominal x-ray just showed a nonspecific bowel gas pattern. Her belly remained soft and nondistended. She did not have any episodes of vomiting or increased pain. She was able to tolerate clear liquid diet last night and a soft diet this morning. She remained afebrile and had no further issues. The patient was medically stabilized for discharge to home today on 06/06/17. LABORATORY DATA: Laboratories at the time of discharge: WBCs 5, RBCs 4.13, hemoglobin 12.3, hematocrit 37, platelets 189. Sodium 139, potassium 3.5, chloride 104, CO2 28, BUN 13, creatinine 1.06, GFR 51. Urinalysis did not show acute infection. PHYSICAL EXAMINATION: Vital Signs: Today, temperature 97.5, heart rate 56, respiratory rate 17, oxygen saturation 95% on room air, blood pressure 133/51. FOLLOWUP: The patient was instructed to follow up with Dr. Root, her primary care physician, in the next week and also Dr. Weber, her surgeon, to evaluate her abdomen again and see if there is any further testing. He is the surgeon who completed her Shane-en-Y bypass surgery in the past. MEDICATIONS AT THE TIME OF DISCHARGE: There were no changes to her home meds. The patient was sent on her regular home meds which include; 1. Amitriptyline 50 mg q.h.s. 2. Aspirin 81 mg daily. 3. Biotin 5 mg q.h.s. 4. Calcium, Vitamin D, and K. 5. Cyanocobalamin 100 mcg daily. 6. Diazepam 2 mg 3 times a day. 7. Duloxetine 60 mg in the evening. 8. Gabapentin 300 mg in the evening. 9. MiraLAX 17 g packet p.o. daily p.r.n. 10. Potassium chloride 10 mEq 4 times a day. 11. Simvastatin 20 mg in the evening. 12. Carafate 1 g 4 times daily before meals and at bedtime. 13. Triamterene/hydrochlorothiazide 37.5/25 mg 1 tablet daily. The patient was discharged to home in stable condition. All questions were answered. The patient reported her understanding of her followups and her medications at the time of discharge. EZE REZA, MARIO ALBERTO [id number]/[facility] #: [id number] FREDI
== END 2017-06-06 12:40 | disposition home or self-care (01) ==
LOC: ED 17:39 → INTOOBSV 06-04 00:11 → SSU 06-04 00:11
PROVIDERS: ADMIT Hospitalist; ATTEND Internal Medicine
DX: K56.600 Partial intestinal obstruction, unspecified as to cause (principal); R10.30 Lower abdominal pain, unspecified; Z98.84 Bariatric surgery status; I65.8 Occlusion and stenosis of other precerebral arteries; I25.10 Atherosclerotic heart disease of native coronary artery without angina pectoris; M79.7 Fibromyalgia; H81.09 Meniere's disease, unspecified ear; K21.9 Gastro-esophageal reflux disease without esophagitis; Z79.899 Other long term (current) drug therapy; Z88.2 Allergy status to sulfonamides; Z88.1 Allergy status to other antibiotic agents; Z88.8 Allergy status to other drugs, medicaments and biological substances; G58.8 Other specified mononeuropathies; Z95.5 Presence of coronary angioplasty implant and graft; I10 Essential (primary) hypertension
CPT/HCPCS: 36415; 74018; 74019; 74177; 80048; 80053; 81003; 81015; 82150; 83735; 85025; 85027; 85610; 85730; 86140; 87086; 96365; 96372; 96375; 96376; 99285; A9270-GY; G0378; J1644; J1885; J2270; J2405; J2543; Q9967

== ENCOUNTER 2017-06-07 11:35 | Inpatient (IN) | payer MEDICARE ==
[2017-06-07] MEDS ORDERED: Diazepam TAB(*) 5 MG PO ONE (12:29)
[2017-06-07] MEDS ORDERED: Morphine INJ* 4 MG/ML 1 ML CARPUJECT IV ONE (12:29)
[2017-06-07 12:57] LABS: ABS Basophils 0 10^3/ul (0-0.2); ABS Eosinophils 0 10^3/ul (0-0.6); ABS Lymphocytes 0.4 10^3/ul (1.0-4.8); ABS Monocytes 0.4 10^3/ul (0-0.8); ABS Nucleated RBC 0 10^3/ul; Eosinophil % 0.2 % (0-6); Hematocrit 45 % (35-47); Hemoglobin 14.8 g/dl (12.0-16.0); Lymphocyte % 3.6 % (25-47); Mean Corpuscular HGB Conc 33 g/dl (31-36); Mean Corpuscular Hemoglobin 30 pg (27-31); Mean Corpuscular Volume 90 fL (80-97); Mean Platelet Volume 8 um3 (7.4-10.4); Nucleated Red Blood Cells % 0; Platelet Count 258 10^3/ul (150-450); Red Blood Count 4.95 10^6/ul (4.0-5.4); Red Cell Distribution Width 17 % (10.5-15); White Blood Count 9.8 10^3/ul (3.5-10.8)
[2017-06-07 13:12] LABS: EGFR Non-African American 36.2 (>60)
[2017-06-07 13:18] LABS: INR 0.94 (0.77-1.02)
--- NOTE | 2017-06-07 14:18 | RAD ---
HISTORY: Status post bariatric surgery, vomiting and pain COMPARISONS: June 05, 2012 VIEWS: Frontal supine and upright views of the abdomen. FINDINGS: BOWEL: There are dilated loops of small bowel proximally with multiple differential air-fluid levels and a paucity of distal bowel gas consistent with small bowel obstruction. There is postsurgical change to the upper GI tract. CALCULI: There are no abnormal calculi. BONES AND SOFT TISSUES: Degenerative changes are noted OTHER FINDINGS: The lung bases are clear. There is no subphrenic gas. IMPRESSION: SMALL BOWEL OBSTRUCTION. NO SUBPHRENIC GAS.
[2017-06-07] MEDS ORDERED: Iodixanol* (CONTRAST) 320 MG/ML 100 ML SDV IV ONE (14:54)
--- NOTE | 2017-06-07 16:07 | RAD ---
Indication: Bariatric surgery with vomiting Contrast: Administered 94.2 ml of VISAPAQUE 320 mg/ml CT of the abdomen and pelvis was performed after oral and IV contrast administration. Coronal and sagittal reconstructed images were obtained. The lung bases demonstrate no pleural fluid, nodules or masses. Heart is of normal size without evidence of pericardial effusion. The patient is status post gastric bypass surgery. There is dilatation of small bowel just distal to the gastrojejunostomy. There is a dilated loops of bowel throughout the pelvis. There is suggestion of a zone of transition in the left lower quadrant. There is some swirling of the mesenteric vessels and the possibility of an internal hernia should BE considered. Collapsed loops of colon and distal small bowel are noted. The liver is normal in size. No focal lesions or intrahepatic duct dilatation is noted. A small amount of ascites is noted. Patient is status post cholecystectomy. The spleen is normal in size. The pancreas demonstrates no mass or pancreatic ductal dilatation. The common duct is not dilated. No adrenal lesions are noted. The kidneys demonstrate symmetric nephrograms without focal lesions. The pancreas demonstrates no mass or pancreatic duct dilatation. Small amount of free fluid is noted in the pelvis. IMPRESSION: Dilated loops of small bowel just distal to the gastrojejunostomy with a zone of transition in the left lower quadrant. There is swirling of the mesenteric vessels and the possibility of an internal hernia should BE considered. Dr. Holguin was notified of the results at 1603 hours.
[2017-06-07 16:45] LABS: Urine Appearance Cloudy; Urine Blood Negative (Negative); Urine Color Amber; Urine Ketones Trace (Negative); Urine Protein 2+(100 mg/dL) (Negative); Urine Specific Gravity 1.034 (1.010-1.030); Urine Urobilinogen Positive (Negative)
[2017-06-07] MEDS ORDERED: cefTRIAXone(*) 1 GM in NS 0.9% 50 ML* 50 ML IVPB ONE (16:57)
--- NOTE | 2017-06-07 16:59 | ED ---
Martina Villeda Gabriel, scribed for Henri Holguni MD on 06/07/17 at 1228 . Abdominal Pain/Female - HPI Summary HPI Summary: This patient is a 72 year old F presenting to [facility] with a chief complaint of ABD pain that has gotten worse since yesterday. The patient rates the pain 8/10 in severity. Patient reports nausea, regular BM, dizziness, weakness, and CP. Patient denies vomiting and diarrhea. Patient was diagnosed with partial SBO and she has returned because she states her pain has increased. She is requesting valium for her vertigo. Surgeries include hysterectomy and Stevan-en-y gastric bypass - History of Current Complaint Chief Complaint: EDAbdPain Stated Complaint: ABD PAIN Time Seen by Provider: 06/07/17 12:15 Hx Obtained From: Patient Onset/Duration: Lasting Days, Still Present Timing: Constant Severity Initially: Moderate Severity Currently: Moderate Pain Intensity: 8 Pain Scale Used: 0-10 Numeric Location: Diffuse Radiates: No Associated Signs and Symptoms: Positive: Nausea, Other: - regular BM, room spinning, weakness, CP. Negative: Vomiting, Diarrhea Allergies/Adverse Reactions: Allergies Allergy/AdvReac Type Severity Reaction Status Date / Time Atenolol [From Tenormin] Allergy Severe Wheezing Verified 06/24/16 14:01 Ciprofloxacin Allergy Mild Tendonitis Verified 06/04/17 00:15 Sulfa Drugs Allergy Mild Hives Verified 06/04/17 00:15 Captopril [From Capoten] AdvReac Mild Coughing Verified 06/04/17 00:15 Clonidine [From Catapres-TTS] AdvReac Mild Dizziness Verified 06/04/17 00:15 Erythromycin AdvReac Mild GI Upset Verified 06/04/17 00:15 Nisoldipine AdvReac Mild Agitation Verified 06/04/17 00:15 Home Medications: Home Medications Cyanocobalamin TAB* [Vitamin B12 TAB*] 100 mcg PO DAILY 06/07/17 [History Confirmed 06/07/17] Gabapentin CAP(*) [Neurontin 300 CAP(*)] 300 mg PO BEDTIME 06/07/17 [History Confirmed 06/07/17] PMH/Surg Hx/FS Hx/Imm Hx Endocrine/Hematology History: Denies: Hx Diabetes Cardiovascular History: Reports: Hx Angioplasty, Hx Coronary Artery Disease, Hx Hypertension Denies: Hx Pacemaker/ICD Respiratory History: Reports: Hx Asthma - SEASONAL, Hx Sleep Apnea - DOES NOT USE HER C-PAP GI History: Reports: Hx Gastroesophageal Reflux Disease, Other GI Disorders - GASTRIC BYPASS STEVAN EN Y History: Denies: Hx Dialysis, Hx Renal Disease Musculoskeletal History: Reports: Hx Arthritis - NECK, SHOULDERS, Hx Fibromyalgia, Other Musculoskeletal History - FX 2 METATARSALS RIGHT FOOT 2010 Sensory History: Reports: Hx Cataracts - LENS IMPLANTS 2 YRS AGO Denies: Hx Contacts or Glasses, Hx Hearing Aid Opthamlomology History: Reports: Hx Cataracts - LENS IMPLANTS 2 YRS AGO Denies: Hx Contacts or Glasses Neurological History: Reports: Hx Migraine, Other Neuro Impairments/Disorders - FIBROMYALGIA, NEUROPATHY Psychiatric History: Denies: Hx Panic Disorder - Cancer History Hx Chemotherapy: No Hx Radiation Therapy: No - Surgical History Surgery Procedure, Year, and Place: BILATERAL CATARACTS, GASTRIC BYPASS 08/2010, INTERNAL HERNIA REPAIR 09/2011, DILATED STRICTURE &10/2011, HEART CATH 05/2007, HYSTERECTOMY 10/1980, RT OVARY REMOVED 05/1984 CHOLECYSTECTOMY 12/1993, ANT CYSTOCELE REPAIR 08/1994 Hx Anesthesia Reactions: No - Immunization History Date of Tetanus Vaccine: UTD Date of Influenza Vaccine: 02/2017 Infectious Disease History: No Infectious Disease History: Denies: Traveled Outside the [place] in Last 30 Days - Family History Known Family History: Positive: Cardiac Disease, Hypertension, Diabetes - Social History Alcohol Use: None Hx Substance Use: No Substance Use Type: Reports: None Hx Tobacco Use: No Smoking Status (MU): Never Smoked Tobacco Have You Smoked in the Last Year: No Review of Systems Positive: Chest Pain Positive: Nausea. Negative: Vomiting, Diarrhea Genitourinary: Negative - trouble with BM Neurological: Other - dizziness Positive: Weakness All Other Systems Reviewed And Are Negative: Yes Physical Exam - Summary Physical Exam Summary: Appearance: Well-appearing, Well-nourished, Slightly tired appearance Skin: Warm and dry Eyes: Normal ENT: Slightly dry mucous membranes Neck: Supple, nontender Respiratory: Clear to auscultation Cardiovascular: 2 out of 6 systolic murmur, RRR Abdomen: Soft, mildly TTP, no rebound, guarding, or rigidity. Bowel: Present, normal Musculoskeletal: Normal, Strength/ROM Intact Neurological: Normal, A&Ox3 Psychiatric: Normal Triage Information Reviewed: Yes Vital Signs On Initial Exam: Initial Vitals Temp Pulse Resp BP Pulse Ox 97.1 F 82 16 115/74 97 06/07/17 11:53 06/07/17 11:53 06/07/17 11:53 06/07/17 11:53 06/07/17 11:53 Vital Signs Reviewed: Yes Diagnostics - Vital Signs Vital Signs Temp Pulse Resp BP Pulse Ox 06/07/17 11:53 97.1 F 82 16 115/74 97 - Laboratory Lab Results: Lab Results 06/07/17 06/07/17 06/07/17 Range/Units 12:42 12:42 12:42 WBC 9.8 (3.5-10.8) 10^3/ul RBC 4.95 (4.0-5.4) 10^6/ul Hgb 14.8 (12.0-16.0) g/dl Hct 45 (35-47) % MCV 90 (80-97) fL MCH 30 (27-31) pg MCHC 33 (31-36) g/dl RDW 17 H (10.5-15) % Plt Count 258 (150-450) 10^3/ul MPV 8 (7.4-10.4) um3 Neut % (Auto) 91.7 H (38-83) % Lymph % (Auto) 3.6 L (25-47) % Grand % (Auto) 4.3 (1-9) % Eos % (Auto) 0.2 (0-6) % Baso % (Auto) 0.2 (0-2) % Absolute Neuts (auto) 9.0 H (1.5-7.7) 10^3/ul Absolute Lymphs (auto) 0.4 L (1.0-4.8) 10^3/ul Absolute Monos (auto) 0.4 (0-0.8) 10^3/ul Absolute Eos (auto) 0 (0-0.6) 10^3/ul Absolute Basos (auto) 0 (0-0.2) 10^3/ul Absolute Nucleated RBC 0 10^3/ul Nucleated RBC % 0 INR (Anticoag Therapy) 0.94 (0.77-1.02) APTT 33.4 (26.0-36.3) seconds Sodium 141 (133-145) mmol/L Potassium 3.9 (3.5-5.0) mmol/L Chloride 102 (101-111) mmol/L Carbon Dioxide 33 H (22-32) mmol/L Anion Gap 6 (2-11) mmol/L BUN 16 (6-24) mg/dL Creatinine 1.43 H (0.51-0.95) mg/dL Est GFR ( Amer) 46.5 (>60) Est GFR (Non-Af Amer) 36.2 (>60) BUN/Creatinine Ratio 11.2 (8-20) Glucose 141 H (70-100) mg/dL Lactic Acid (0.5-2.0) mmol/L Calcium 9.7 (8.6-10.3) mg/dL Magnesium 2.0 (1.9-2.7) mg/dL Total Bilirubin 0.40 (0.2-1.0) mg/dL AST 22 (13-39) U/L ALT 20 (7-52) U/L Alkaline Phosphatase 114 H (34-104) U/L Total Protein 6.7 (6.4-8.9) g/dL Albumin 4.2 (3.2-5.2) g/dL Globulin 2.5 (2-4) g/dL Albumin/Globulin Ratio 1.7 (1-3) Lipase 14 (11.0-82.0) U/L Urine Color Urine Appearance Urine pH (5-9) Ur Specific [place] (1.010-1.030) Urine Protein (Negative) Urine Ketones (Negative) Urine Blood (Negative) Urine Nitrate (Negative) Urine Bilirubin (Negative) Urine Urobilinogen (Negative) Ur Leukocyte Esterase (Negative) Urine WBC (Auto) (Absent) Urine RBC (Auto) (Absent) Ur Squamous Epith Cells (Absent) Calcium Oxalate Crystal (Absent) Urine Bacteria (Absent) Hyaline Casts (Absent) Urine Glucose (Negative) 06/07/17 06/07/17 Range/Units 12:42 15:46 WBC (3.5-10.8) 10^3/ul RBC (4.0-5.4) 10^6/ul Hgb (12.0-16.0) g/dl Hct (35-47) % MCV (80-97) fL MCH (27-31) pg MCHC (31-36) g/dl RDW (10.5-15) % Plt Count (150-450) 10^3/ul MPV (7.4-10.4) um3 Neut % (Auto) (38-83) % Lymph % (Auto) (25-47) % Grand % (Auto) (1-9) % Eos % (Auto) (0-6) % Baso % (Auto) (0-2) % Absolute Neuts (auto) (1.5-7.7) 10^3/ul Absolute Lymphs (auto) (1.0-4.8) 10^3/ul Absolute Monos (auto) (0-0.8) 10^3/ul Absolute Eos (auto) (0-0.6) 10^3/ul Absolute Basos (auto) (0-0.2) 10^3/ul Absolute Nucleated RBC 10^3/ul Nucleated RBC % INR (Anticoag Therapy) (0.77-1.02) APTT (26.0-36.3) seconds Sodium (133-145) mmol/L Potassium (3.5-5.0) mmol/L Chloride (101-111) mmol/L Carbon Dioxide (22-32) mmol/L Anion Gap (2-11) mmol/L BUN (6-24) mg/dL Creatinine (0.51-0.95) mg/dL Est GFR ( Amer) (>60) Est GFR (Non-Af Amer) (>60) BUN/Creatinine Ratio (8-20) Glucose (70-100) mg/dL Lactic Acid 1.3 (0.5-2.0) mmol/L Calcium (8.6-10.3) mg/dL Magnesium (1.9-2.7) mg/dL Total Bilirubin (0.2-1.0) mg/dL AST (13-39) U/L ALT (7-52) U/L Alkaline Phosphatase (34-104) U/L Total Protein (6.4-8.9) g/dL Albumin (3.2-5.2) g/dL Globulin (2-4) g/dL Albumin/Globulin Ratio (1-3) Lipase (11.0-82.0) U/L Urine Color [place] Urine Appearance Cloudy Urine pH 5.0 (5-9) Ur Specific [place] 1.034 H (1.010-1.030) Urine Protein 2+(100 mg/dl) H (Negative) Urine Ketones Trace H (Negative) Urine Blood Negative (Negative) Urine Nitrate Negative (Negative) Urine Bilirubin 2+ H (Negative) Urine Urobilinogen Positive H (Negative) Ur Leukocyte Esterase 2+ H (Negative) Urine WBC (Auto) 3+(>20/hpf) H (Absent) Urine RBC (Auto) Absent (Absent) Ur Squamous Epith Cells Present H (Absent) Calcium Oxalate Crystal Present H (Absent) Urine Bacteria Absent (Absent) Hyaline Casts Present H (Absent) Urine Glucose Negative (Negative) Result Diagrams: 06/07/17 12:42 06/07/17 12:42 Lab Statement: Any lab studies that have been ordered have been reviewed, and results considered in the medical decision making process. - Radiology ABD Xray Radiology Interpretation Completed By: Radiologist - SMALL BOWEL OBSTRUCTION. NO SUBPHRENIC GAS. ED physician has reviewed this radiology report. - CT CT ABD/Pelvis CT Interpretation Completed By: Radiologist - Dilated loops of small bowel just distal to the gastrojejunostomy with a zone of transition in the left lower quadrant. There is swirling of the mesenteric vessels and the possibility of an internal hernia should BE considered. ED physician has reviewed this radiology report. - EKG 11:59 Cardiac Rate: NL EKG Rhythm: Sinus Rhythm - at [address] Segment: Non-Specific EKG Interpretation: no STEMI Abdominal Pain Fem Course/Dx - Course Course Of Treatment: imaging indicative of bowel obstruction, we spoke with surgical PA who has pt scheduled for admission. pain controlled, abx given for uti - Diagnoses Provider Diagnoses: Bowel obstruction Discharge - Discharge Plan Condition: Stable Disposition: ADMITTED TO [facility] Referrals: Daren Root MD [Primary Care Provider] - Consult Consult: 16:16 We discussed patient care with Dr. Ritchie PA, surgeon. The documentation as recorded by the Martina roger Gabriel accurately reflects the service I personally performed and the decisions made by , Henri Holugin MD.
--- NOTE | 2017-06-07 17:27 | PN ---
Progress Note - Progress Note Date of Service: 06/07/17 Note: Brief Surgical H&P update: cc: abd pain HPI: 72 yo female s/p gastric bypass in 2010 recently admitted from 06/04- 06/06/17 w/ abd pain which has waxed and waned over the past 6 wks. Had EGD in Apr. CT from 06/03/17 showed poss partial SBO; repeat CT today shows more high grade obstruction. She's not been able to eat or drink today. She's been having dry heaves and chills. Pain up to 01/07. She's had 2 loose BMs both today and yesterday. Passing small amts of flatus. See H&P for other details including past surgeries, current meds and allergies, FHx, SHx, ROS. PE: Vital Signs - 8 hr 06/07/17 06/07/17 06/07/17 11:53 12:17 12:20 Temperature 97.1 F Pulse Rate 82 73 Respiratory 16 17 Rate Blood Pressure 115/74 144/88 (mmHg) O2 Sat by Pulse 97 88 Oximetry 06/07/17 06/07/17 06/07/17 12:30 12:40 12:47 Temperature 99.3 F Pulse Rate 78 Respiratory 17 20 Rate Blood Pressure 150/62 142/88 (mmHg) O2 Sat by Pulse 98 Oximetry 06/07/17 06/07/17 06/07/17 13:00 14:00 14:30 Temperature 99 F Pulse Rate 77 69 74 Respiratory 18 16 17 Rate Blood Pressure 152/89 (mmHg) O2 Sat by Pulse 96 97 99 Oximetry 06/07/17 06/07/17 06/07/17 15:00 16:00 16:54 Temperature 99 F Pulse Rate 70 74 75 Respiratory 17 17 16 Rate Blood Pressure 150/80 (mmHg) O2 Sat by Pulse 91 96 100 Oximetry Gen: WN, NAD Skin: warm, dry HEENT: mm dry; PERRL; no conjunctival pallor; full dentures Heart: reg Lungs: clear Abd: distended; BS present but hypo; soft; tympanitic; mild diffuse tenderness; no guarding or rigidity. No masses or obvious hernias. Back: no CVAT Extr: no edema Labs and CT personally reviewed. Imp: SBO Plan: admit; reviewed w/ Dr. Weber; OR for diagnostic laparoscopy, possible laparotomy
[2017-06-07] MEDS ORDERED: ceFAZolin 2 GM PREMIX (*) 2 GM/50 ML BAG IVPB ONE (17:47)
[2017-06-07] MEDS ORDERED: Bupivacaine 0.25% SDV* 30 ML ONE (18:09)
[2017-06-07] MEDS ORDERED: Propofol* 10 MG/ML 20 ML BTL IV PUSH ONE (18:10)
[2017-06-07] MEDS ORDERED: Succinylcholine* 20 MG/ML 10 ML VIAL ONE (18:10)
[2017-06-07] MEDS ORDERED: Midazolam* 1 MG/ML 2 ML VIAL (2 MG) ONE (18:11)
[2017-06-07] MEDS ORDERED: fentaNYL* 50 MCG/ML 2 ML VIAL (100 MCG VIAL) ONE ×3 (18:11→20:49)
[2017-06-07] MEDS ORDERED: Atracurium* 10 MG/ML 10 ML VIAL ONE (18:11)
[2017-06-07] MEDS ORDERED: Naloxone* 0.4 MG/ML 1 ML VIAL IV PRN (19:10)
[2017-06-07] MEDS ORDERED: Ondansetron INJ* 2 MG/ML VIAL IV PRN (19:10)
[2017-06-07] MEDS ORDERED: DiMENhydriNATE IV* 50 MG/ML VIAL IV PUSH PRN (19:10)
[2017-06-07] MEDS ORDERED: Ondansetron INJ* 2 MG/ML VIAL ONE (20:02)
[2017-06-07] MEDS ORDERED: Glycopyrrolate IV* 0.2 MG/ML 1 ML VIAL ONE (20:09)
[2017-06-07] MEDS ORDERED: Neostigmine Methylsulfate* 2 MG/2 ML SYRINGE ONE (20:09)
--- NOTE | 2017-06-07 20:18 | PN ---
Progress Note - Progress Note Date of Service: 06/07/17 Note: Brief Operative Note: Preop Dx: SBO Postop Dx: same Procedure: Laparoscopy; laparotomy, lysis of adhesion; SB resection Anesthesia: GET Surgeon: Gus Asst: TEE Fitzgerald; VAN Rehman Fluids: 2100 ml RL EBL: < 100 Drains: none Specimen: portion small bowel Findings: dictated
[2017-06-07] MEDS ORDERED: Acetaminophen TAB* 325 MG PO PRN (20:25)
[2017-06-07] MEDS ORDERED: LORazepam INJ* 2 MG/ML 1 ML VIAL IV PUSH PRN (20:25)
[2017-06-07] MEDS ORDERED: Metoclopramide IV* 5 MG/ML 2 ML VIAL IV PRN (20:27)
[2017-06-07] MEDS: fentaNYL* 50 MCG/ML 2 ML VIAL (100 MCG VIAL) IV PRN ×4 (20:50→21:01)
[2017-06-07] MEDS ORDERED: HYDROmorphone INJ* 1 MG/ML CARPUJECT SYRINGE ONE (20:50)
[2017-06-07] MEDS: HYDROmorphone INJ* 1 MG/ML CARPUJECT SYRINGE IV PRN ×5 (20:53→21:43)
[2017-06-07] MEDS: Heparin VIAL(*) 5000 UNITS/ML VIAL (FIVE THOUSAND) SUBCUT SCH (22:43)
[2017-06-07] MEDS: Gabapentin CAP(*) 300 MG PO SCH (22:44)
[2017-06-07] MEDS: Pantoprazole IV* 40 MG IV SCH (22:45)
[2017-06-08] MEDS: Morphine INJ* 4 MG/ML 1 ML CARPUJECT IV PRN (04:13)
[2017-06-08] MEDS: Heparin VIAL(*) 5000 UNITS/ML VIAL (FIVE THOUSAND) SUBCUT SCH ×3 (05:32→23:11)
[2017-06-08] MEDS: Diltiazem CD CAP* 240 MG PO SCH (08:24)
[2017-06-08] MEDS: Morphine INJ* 10 MG/ML 1 ML CARPUJECT IV PRN ×4 (08:25→23:12)
--- NOTE | 2017-06-08 10:36 | SURGPN ---
Subjective - Introduction -: Admitted on: 06/07/2017 Patient's surgical date: 06/07/2017 Procedure completed: Diagnostic laparoscopy converted to laparotomy with TORO and small bowel resection - Medications -: Active Medications Generic Name Dose Route Start Last Admin Trade Name Freq PRN Reason Stop Dose Admin Acetaminophen 650 mg 06/07/17 20:25 Tylenol Tab* PO Q4H PRN mild pain Diltiazem HCl 240 mg 06/08/17 09:00 06/08/17 08:24 Cardizem Cd Cap* PO 240 mg DAILY KINSEY Administration Duloxetine HCl 60 mg 06/08/17 18:00 Cymbalta Cap* PO QPM KINSEY Gabapentin 300 mg 06/07/17 21:00 06/07/17 22:44 Neurontin Cap(*) PO Not Given BEDTIME KINSEY Heparin Sodium (Porcine) 5,000 units 06/07/17 22:00 06/08/17 05:32 Heparin Vial(*) SUBCUT 5,000 units Q8HR KINSEY Administration Lactated Ringer's 1,000 mls @ 125 mls/hr 06/07/17 21:00 06/08/17 05:34 Lactated Ringers 1000 Ml Bag* IV 125 mls/hr PER RATE KINSEY Administration Lorazepam 0.5 mg 06/07/17 20:25 Ativan Inj* IV PUSH Q6H PRN ANXIETY Metoclopramide HCl 10 mg 06/07/17 20:27 Reglan Iv* IV Q6H PRN NAUSEA/VOMITING Morphine Sulfate 3 mg 06/07/17 20:26 06/08/17 04:13 Morphine Inj (Syringe)* IV 3 mg Q4H PRN Administration PAIN Morphine Sulfate 5 mg 06/07/17 20:26 06/08/17 08:25 Morphine Inj (Syringe)* IV 5 mg Q4H PRN Administration PAIN - MODERATE TO SEVERE Naloxone HCl 0.08 mg 06/07/17 19:10 Narcan* IV 06/08/17 11:10 Q2M PRN severe induced resp depression Pantoprazole Sodium 40 mg 06/07/17 21:00 06/07/17 22:45 Protonix Iv* IV 40 mg Q24H KINSEY Administration Sucralfate 1 gm 06/08/17 11:30 Carafate* PO ACHS KINSEY Triamterene/HCTZ 1 cap 06/09/17 09:00 Dyazide Cap* PO QAM KINSEY - Comments Comments: Reports occasional moderate incisional pain with associated nausea, but no vomiting, fever or chills. Has not been able to ambulate OOB yet. Objective - Objective -: Awake and alert, comfortable in bed and in NAD - Intake and Output -: Intake & Output 06/06/17 06/07/17 06/08/17 06/09/17 06:59 06:59 06:59 06:59 Intake Total 3034 Output Total 350 Balance 2684 Intake: IV Fluids 3034 LR 3034 Output: Urine 0 Walhs 250 Estimated Blood Loss 100 Other: # Bowel Movements 0 # Voids 0 Surgical Physical Exam - Comments -: Vitals reviewed, Tmax 99.3 BP 178/81 Lungs CTA bilat Heart RRR, no murmurs Abdomen soft, mildly distended. Moderate incisional tenderness, but no rigidity or rebound. Incisions clean and dry. Bowel sounds hypoactive. Ext. without edema Labs ordered for tomorrow Assessment and Plan - Assessment -: A 72 y/o female, s/p RYGB in 2010, presented with SBO, POD#1, s/p laparotomy with TORO and SM resection, stable - Plan Additional Comments: D/C Walsh catheter Ambulate as tolerated Start clear liquids Hypertension, possibly due to post-op pain, will resume PO meds Check labs in AM GI and DVT prophylaxis Await bowel function
[2017-06-08] MEDS ORDERED: Sucralfate TAB* 1 GM PO SCH (11:30)
[2017-06-08] MEDS: Sucralfate SUSP 1 GM/10 ml 10 ML UDC PO SCH ×2 (16:43→19:38)
[2017-06-08] MEDS: DULoxetine DR CAP* 30 MG CAP.DR PO SCH (17:57)
[2017-06-08] MEDS: Gabapentin CAP(*) 300 MG PO SCH (19:37)
[2017-06-08] MEDS: Pantoprazole IV* 40 MG IV SCH (19:37)
[2017-06-09] MEDS: Morphine INJ* 4 MG/ML 1 ML CARPUJECT IV PRN ×4 (04:49→21:23)
[2017-06-09 05:48] LABS: ABS Basophils 0 10^3/ul (0-0.2); ABS Eosinophils 0.1 10^3/ul (0-0.6); ABS Lymphocytes 0.4 10^3/ul (1.0-4.8); ABS Monocytes 0.5 10^3/ul (0-0.8); ABS Nucleated RBC 0 10^3/ul; Eosinophil % 1.3 % (0-6); Hematocrit 37 % (35-47); Lymphocyte % 7.5 % (25-47); Mean Corpuscular HGB Conc 33 g/dl (31-36); Mean Corpuscular Hemoglobin 30 pg (27-31); Mean Corpuscular Volume 91 fL (80-97); Mean Platelet Volume 8 um3 (7.4-10.4); Nucleated Red Blood Cells % 0; Platelet Count 185 10^3/ul (150-450); Red Blood Count 4.05 10^6/ul (4.0-5.4); Red Cell Distribution Width 17 % (10.5-15)
[2017-06-09 06:13] LABS: EGFR Non-African American 47.5 (>60)
[2017-06-09] MEDS: Heparin VIAL(*) 5000 UNITS/ML VIAL (FIVE THOUSAND) SUBCUT SCH ×3 (06:42→21:18)
[2017-06-09] MEDS: Sucralfate SUSP 1 GM/10 ml 10 ML UDC PO SCH ×4 (07:53→21:17)
[2017-06-09] MEDS: Triamterene/HCTZ 37.5-25 MG* CAP PO SCH (09:27)
[2017-06-09] MEDS: Diltiazem CD CAP* 240 MG PO SCH (09:27)
--- NOTE | 2017-06-09 09:56 | PN ---
Progress Note - Progress Note Date of Service: 06/09/17 SOAP: Subjective: Patient was seen and examined at bedside. Reports doing a little better today, pain is improving, tolerating diet. Ambulatory. Denies any dysuria or frequency since Walsh was removed. No fever or chills. Passing flatus. Objective: Awake and alert, comfortable in bed Vitals reviewed, stable and afebrile Kungs CTA bilat. Heart RRR, no murmurs Abdomen soft, NT, ND. Incisions C/D/I. No guarding or rigidity. Hypoactive bowel sounds. Labs noted, mild hypomagnesemia I/O noted Assessment: POD#2, s/p laparotomy with TORO and small bowel resection, improving Plan: Advance diet to full liquids Ambulate Await bowel functions Hypomagnesemia, replace Mg
[2017-06-09] MEDS ORDERED: Magnesium Sulfate 1 GM IV* 1 GM/100 ML BAG IV ONE (10:30)
[2017-06-09] MEDS: DULoxetine DR CAP* 30 MG CAP.DR PO SCH (17:39)
[2017-06-09] MEDS: Gabapentin CAP(*) 300 MG PO SCH (21:16)
[2017-06-09] MEDS: Pantoprazole IV* 40 MG IV SCH (21:16)
[2017-06-10] MEDS: Morphine INJ* 4 MG/ML 1 ML CARPUJECT IV PRN ×3 (01:32→13:52)
[2017-06-10] MEDS: Heparin VIAL(*) 5000 UNITS/ML VIAL (FIVE THOUSAND) SUBCUT SCH ×3 (05:49→21:23)
[2017-06-10] MEDS ORDERED: Bisacodyl SUPP* 10 MG SUPP PR ONE (09:32)
[2017-06-10] MEDS ORDERED: Docusate CAP* 100 MG PO PRN (09:32)
[2017-06-10] MEDS ORDERED: oxyCODONE/Acetamin 5/325 MG* TAB PO PRN ×2 (09:34)
--- NOTE | 2017-06-10 09:40 | PN ---
Progress Note - Progress Note Date of Service: 06/10/17 SOAP: Subjective: Patient seen and examined at bedside. Reports less pain today. Feels like she needs to have a bowel movement, continues to ambulate well. Denies nausea or vomiting. Tolerating full liquids. Objective: Awake and alert, sitting on her chair. VSS, afebrile Lungs CTA bilat. Heart RRR, no murmurs Abdomen soft, NT, ND. Incisions C/D/I. No guarding or rebound. I/O noted Assessment: POD#3, s/p laparotomy with TORO and SB resection, stable Plan: Advance diet Trial of PO Colace and Dulcolax supp this AM Continue to ambulate as tolerated If improving today, likely home in AM 06/11
[2017-06-10] MEDS: Sucralfate SUSP 1 GM/10 ml 10 ML UDC PO SCH ×4 (09:43→21:12)
[2017-06-10] MEDS: Diltiazem CD CAP* 240 MG PO SCH (09:43)
[2017-06-10] MEDS: Triamterene/HCTZ 37.5-25 MG* CAP PO SCH (09:43)
--- NOTE | 2017-06-10 15:04 | PN ---
Progress Note - Progress Note Date of Service: 06/10/17 SOAP: Subjective: [The patient reports her pain has been improving everyday and denies abdominal pain when supine. She reports nausea intermittently after having liquids and solids but states it resolves with medication. The pt reports she is ambulating and wants to shower. The pt states she is able to urinate and is passing flatus but denies having a BM.] Objective: [ Vital Signs Temp 98.1 F 06/10/17 11:42 Pulse 63 06/10/17 11:42 Resp 16 06/10/17 13:52 BP 162/61 06/10/17 11:42 Pulse Ox 94 06/10/17 11:42 Intake & Output 06/09/17 06/10/17 06/10/17 18:59 06:59 18:59 Intake Total 1957 1673 120 Output Total 1100 600 750 Balance 857 1073 -630 Intake: IV Fluids 987 973 LR 987 973 Oral 970 700 120 Output: Urine 1100 600 750 Other: # Bowel Movements 0 Vitals Reviewed: Continue to monitor BP General: The patient was lying in bed comfortably Neurologic: The patient was alert and oriented Heart: RRR no murmur Lungs: Clear to auscultation bilaterally Abdomen: Tender in all four quadrants and distended with no guarding and rigidity. The incisions are dry and healing well, shania are intact. ] Extremities: Distal pulses intact bilaterally w/out edema Assessment: [ This is a 72 y.o s/p laparomoty w/ TORO and SB resection who is currently stable ] Plan: [- Continue ambulating - Monitor for BM ] - Possible discharge 06/11
[2017-06-10] MEDS: oxyCODONE/Acetamin 5/325 MG* TAB PO PRN ×2 (16:37→21:10)
[2017-06-10] MEDS: DULoxetine DR CAP* 30 MG CAP.DR PO SCH (19:01)
[2017-06-10] MEDS: Gabapentin CAP(*) 300 MG PO SCH (21:09)
[2017-06-10] MEDS: Pantoprazole IV* 40 MG IV SCH (21:24)
[2017-06-11] MEDS: Heparin VIAL(*) 5000 UNITS/ML VIAL (FIVE THOUSAND) SUBCUT SCH ×3 (05:27→21:44)
[2017-06-11] MEDS: oxyCODONE/Acetamin 5/325 MG* TAB PO PRN ×5 (05:32→23:50)
[2017-06-11] MEDS: Sucralfate SUSP 1 GM/10 ml 10 ML UDC PO SCH ×4 (06:59→21:42)
--- NOTE | 2017-06-11 08:00 | PN ---
Progress Note - Progress Note Date of Service: 06/11/17 SOAP: Subjective: [The patient reports she is doing well today and denies abdominal pain. The patient states she was able to shower yesterday with assistance. The pt reports she is ambulating. The pt states she had a medium size BM yesterday and reports she feels comfortable going home today and that her can assist her at home.] Objective: Vital Signs Temp 97.7 F 06/11/17 03:45 Pulse 61 06/11/17 03:45 Resp 16 06/11/17 05:32 BP 142/59 06/11/17 03:45 Pulse Ox 91 06/11/17 03:45 Intake & Output 06/10/17 06/11/17 06/11/17 18:59 06:59 18:59 Intake Total 2039 1585 Output Total 750 Balance 1289 1585 Intake: IV Fluids 9 975 LR 1918 975 Oral 120 610 Output: Urine 750 Other: Estimated Void Medium # Voids 5 Vitals Reviewed: Continuing to monitor O2 sat. General: The pt was lying comfortably in bed Neurologic: The pt was alert and oriented Heart: RRR, no murmur Lungs: Clear to auscultation bilaterally Abdomen: Mildly distended, non-tender, incision is healing properly and shania are intact Extremities: Distal pulses intact w/ no evidence of edema [] Assessment: [This is a 72 y.o female s/p laparotomy w/ LOT and SB resection who is doing well. Per nursing report the pt is not on oxygen at home and is currently on 4L of oxygen and has been ambulating minimally.] Plan: [-Continue to encourage the patient to ambulate - Continue to monitor O2 sat - Possible discharge 06/11 afternoon ]
[2017-06-11] MEDS ORDERED: Diazepam TAB(NF) 2 MG TAB - use 2.5 of 5 mg tab autosub PO PRN (09:37)
[2017-06-11] MEDS ORDERED: Bisacodyl SUPP* 10 MG SUPP PR ONE (09:38)
--- NOTE | 2017-06-11 09:44 | PN ---
Progress Note - Progress Note Date of Service: 06/11/17 SOAP: Subjective: Patient seen and examined at bedside. Doing better today, less pain, ambulatory. Tolerating diet, small BM yesterday. Still slow to get around, doesn 't feel comfortable to go home quiet yet. Denies nausea or vomiting. Objective: Awake and alert, comfortable in bed VSS, afebrile Abdomen soft, mildly distended, bowels sounds active in all quadrants. Mild incisional tenderness, no guarding or rebound. Incision C/D/I I/Os reviewed Assessment: Simón, s/p laparotomy with small bowel resection and TORO Plan: Ambulate PO meds D/C plans for home discharge likely over the weekend
[2017-06-11] MEDS: Diltiazem CD CAP* 240 MG PO SCH (10:09)
[2017-06-11] MEDS: Triamterene/HCTZ 37.5-25 MG* CAP PO SCH (10:10)
--- NOTE | 2017-06-11 15:45 | PN ---
Progress Note - Progress Note Date of Service: 06/11/17 SOAP: Subjective: Pt seen and examined. We walked together. She still in in pain "muscular" appetite returning. some flatus Objective: af vss uo good lungs poor insp effort abdo: soft/ mild distension/ incisional tenderness with some erythema at staple line skin changes at umbilicus no calf tenderness Assessment: POD4 ex lap SB resection; ileus Plan: d/c ivf oob pain control d/c planning possibly wed or wednesday SACMA to cover me through weekend
[2017-06-11] MEDS: DULoxetine DR CAP* 30 MG CAP.DR PO SCH (17:05)
[2017-06-11] MEDS: Gabapentin CAP(*) 300 MG PO SCH (21:41)
[2017-06-11] MEDS: Amitriptyline TAB* 50 MG PO SCH (21:41)
[2017-06-11] MEDS: Pantoprazole IV* 40 MG IV SCH (21:43)
[2017-06-12] MEDS: Sucralfate SUSP 1 GM/10 ml 10 ML UDC PO SCH ×4 (06:09→19:59)
[2017-06-12] MEDS: Heparin VIAL(*) 5000 UNITS/ML VIAL (FIVE THOUSAND) SUBCUT SCH ×3 (06:09→22:20)
--- NOTE | 2017-06-12 08:08 | PN ---
Progress Note - Progress Note Date of Service: 06/12/17 Note: Surgery Ms. Asif reports she still doesn't feel quite to baseline. She is eating small amounts, she had a BM 2 days ago and some flatus yesterday. She feels that getting up and moving is "pushing it". Vital Signs 06/11/17 06/11/17 06/11/17 09:55 10:15 12:15 Temperature Pulse Rate Respiratory 15 16 14 Rate Blood Pressure (mmHg) O2 Sat by Pulse Oximetry 06/11/17 06/11/17 06/11/17 14:40 15:30 16:00 Temperature 97.9 F Pulse Rate 53 Respiratory 16 15 Rate Blood Pressure 149/59 (mmHg) O2 Sat by Pulse 94 94 Oximetry 06/11/17 06/11/17 06/11/17 18:55 18:57 19:22 Temperature Pulse Rate Respiratory 16 16 18 Rate Blood Pressure (mmHg) O2 Sat by Pulse Oximetry 06/11/17 06/11/17 06/11/17 19:31 21:41 21:56 Temperature 98.0 F Pulse Rate 58 Respiratory 15 18 18 Rate Blood Pressure 155/65 (mmHg) O2 Sat by Pulse 96 Oximetry 06/11/17 06/12/17 06/12/17 23:50 00:34 02:38 Temperature 97.7 F Pulse Rate 59 Respiratory 16 18 14 Rate Blood Pressure 146/64 (mmHg) O2 Sat by Pulse 96 Oximetry 06/12/17 06/12/17 03:26 07:45 Temperature 97.5 F 97.3 F Pulse Rate 56 62 Respiratory 16 16 Rate Blood Pressure 150/66 140/45 (mmHg) O2 Sat by Pulse 96 98 Oximetry Abd: good BS, distended, mildly tender near incision. Neg. CVAT Incision: clean and dry, no signs infection Intake & Output 06/11/17 06/12/17 06/12/17 22:59 06:59 14:59 Intake Total 2261 400 Output Total 350 700 Balance 1911 -300 Intake: IV Fluids 1661 LR 1661 Oral 600 400 Output: Urine 350 700 Other: Estimated Void Small # Voids 1 A/P: Slow progress on POD#5. Not ready for discharge, possibly tomorrow. CLFoster
[2017-06-12] MEDS: Diltiazem CD CAP* 240 MG PO SCH (09:47)
[2017-06-12] MEDS: oxyCODONE/Acetamin 5/325 MG* TAB PO PRN ×4 (09:47→22:20)
[2017-06-12] MEDS: Triamterene/HCTZ 37.5-25 MG* CAP PO SCH (09:47)
[2017-06-12] MEDS: DULoxetine DR CAP* 30 MG CAP.DR PO SCH (17:51)
[2017-06-12] MEDS: Pantoprazole IV* 40 MG IV SCH (19:58)
[2017-06-12] MEDS: Gabapentin CAP(*) 300 MG PO SCH (19:58)
[2017-06-12] MEDS: Amitriptyline TAB* 50 MG PO SCH (19:58)
[2017-06-13] MEDS: oxyCODONE/Acetamin 5/325 MG* TAB PO PRN ×2 (05:46→20:00)
[2017-06-13] MEDS: Heparin VIAL(*) 5000 UNITS/ML VIAL (FIVE THOUSAND) SUBCUT SCH ×3 (05:46→22:13)
[2017-06-13] MEDS: Sucralfate SUSP 1 GM/10 ml 10 ML UDC PO SCH ×4 (07:41→20:00)
[2017-06-13] MEDS: Diltiazem CD CAP* 240 MG PO SCH (09:08)
[2017-06-13] MEDS: Triamterene/HCTZ 37.5-25 MG* CAP PO SCH (09:08)
--- NOTE | 2017-06-13 11:05 | PN ---
Progress Note - Progress Note Date of Service: 06/13/17 Note: S/P laparotomy TORO Afeb, VS ok radha some po's no N/V passing stool and urine pain control OK Looks good Breathing OK, easy unlabored Abd obese, soft, sore, incis clean Could go home States she doesn't feel ready, wants to wait until tomorrow
[2017-06-13] MEDS: DULoxetine DR CAP* 30 MG CAP.DR PO SCH (18:21)
[2017-06-13] MEDS: Amitriptyline TAB* 50 MG PO SCH (20:00)
[2017-06-13] MEDS: Pantoprazole IV* 40 MG IV SCH (20:00)
[2017-06-13] MEDS: Gabapentin CAP(*) 300 MG PO SCH (20:00)
[2017-06-14] MEDS: Heparin VIAL(*) 5000 UNITS/ML VIAL (FIVE THOUSAND) SUBCUT SCH (05:44)
[2017-06-14] MEDS: Sucralfate SUSP 1 GM/10 ml 10 ML UDC PO SCH (07:19)
[2017-06-14] MEDS: oxyCODONE/Acetamin 5/325 MG* TAB PO PRN (07:21)
[2017-06-14 07:25] VITALS: BP 150/60
[2017-06-14] MEDS: Triamterene/HCTZ 37.5-25 MG* CAP PO SCH (08:37)
[2017-06-14] MEDS: Diltiazem CD CAP* 240 MG PO SCH (08:37)
--- NOTE | 2017-06-15 01:15 | DS ---
CC: [facility]; Dr. Daren Root * DISCHARGE SUMMARY: DATE OF ADMISSION: 06/07/17 DATE OF DISCHARGE: 06/14/17 HISTORY OF PRESENT ILLNESS: Ms. Asif is a 72-year-old female who was admitted into the hospital on 06/07/17 after a recent hospitalization for approximately 3 days where she was admitted with a partial small bowel obstruction. She was discharged home and presented back within 24 hours only to get readmitted to the surgical service and undergo exploratory laparotomy. Please see operative report for details. The patient was noted to have adhesions as well as small bowel stricture distal to a Shane-en-Y gastric bypass that she had had previously. The patient underwent lysis of adhesions and then a limited small bowel resection. 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 The patient's postoperative course was mostly uneventful. She had an ileus that improved with time. Her diet was advanced slowly. She was maintained on IV fluids. No antibiotics were given and the patient was only encouraged to ambulate and breathing exercises she took until postoperative day 7 to have good bowel function and be prepared for a discharge home. PHYSICAL EXAMINATION: On the day of discharge, the patient was afebrile for 24 hours. Vital signs were stable. Urine output was good with negative I's and O' s over the course of the last 24 hours. Alert and oriented x3, in no apparent distress. Head, Ears, Eyes, Nose, and Throat: Normocephalic, atraumatic. Sclerae anicteric. Mucous membranes are moist. Neck: No lymphadenopathy. Lungs: Clear. Abdomen: Soft, minimal distention, nontender. Skin incision well approximated with skin shania with mild eschar formation at the umbilicus , but no erythema, no ecchymosis, no herniation. Extremities within normal limits. PLAN: On postop day 7, diagnostic laparoscopy, a conversion to laparotomy for a small bowel resection and lysis of adhesions. Plan is for discharge home. Follow up on in my office. We will remove the shania at that time and then the patient will continue to be followed, but we will most likely shift her care to [facility] after that. [id number]/[facility] #: [id number] [facility]
--- NOTE | 2017-06-19 04:15 | OP ---
CC: Dr. Daren Root, [facility]; [facility] OPERATIVE REPORT: DATE OF OPERATION: 06/07/17 DATE OF : 47 SURGEON: Nghia Weber MD HOTHOUSE WORKER: TEE Sunshine ANESTHESIA: General anesthesia. PRE-OP DIAGNOSIS: Small bowel obstruction, rule out internal hernia. POST-OP DIAGNOSES: Small bowel obstruction and small bowel stricture. OPERATIVE PROCEDURE: Diagnostic laparoscopy, exploratory laparotomy, lysis of adhesions and small sheela wel resection with primary anastomosis. ESTIMATED BLOOD LOSS: Less than 100 cc. FLUIDS: Crystalloid fluid given, 2100 cc of lactated Ringer's. DRAINS: None. SPECIMEN: Portion of small bowel. DESCRIPTION OF PROCEDURE: The patient was identified in the preoperative area. I discussed the case with her previously and she agreed to proceed and informed consent was signed. The patient was maribeth ed by the anesthesiologist, was brought back to the operating room and placed on the operating table in supine position. Preoperative antibiotics given. Sequential devices were placed on bilateral lowe r extremities. General anesthesia was induced and the patient's abdomen was prepped and draped in th e standard surgical fashion. A time-out was performed. An infracostal incision was made at the left upper quadrant. This was deepened down to the anterior fascia, which was elevated and Veress needle inserted into the abdominal cavity, which was then allowed to insufflate to a pressure of 15 mmHg. T he patient tolerated the insufflation well. Veress needle was removed and a 5-mm trocar was inserted at the site. Laparoscope was inserted and there was no evidence of injury. Review of the abdomen s howed dilated small bowel throughout. Additional 5 mm trocars were placed at the umbilicus and also a t the left lower quadrant. We identified the cecum. There was no free fluid in the abdomen. The te rminal ileum was identified and we attempted to run the intestines retrograde. This proved difficult and seemed to require significant tension to recheck small bowel into the small visual field. At thi s point, I decided to convert to open laparotomy due to the risks I felt were inherent to continuing this laparoscopically. The upper midline incision was made increasing the previously placed 5 mm tro car at the site. We divided all areas of abdominal cavity. I did extend our incision below the umbi licus as well. We entered into the abdomen. The additional 2 trocars were removed and the small bow el was eviscerated. There were minimal amount of adhesions to the anterior abdominal wall. These we re taken down both bluntly and sharply. With the small bowel eviscerated, we promptly saw a band wojciech t extended from the terminal ileum mesentery to the base of the small bowel mesentery. This was lyse d and allowed for distal bowel that had been collapsed to minimally improved. Upon reviewing this po rtion of small bowel that was held up at this band, I could see there were additionally chronic miller es along the small bowel. It was unclear how affected this bowel was. It appeared strictured and I made the decision to transect this portion identifying a small area, we chose points proximally and d istally; but prior to this resection, we ran the intestines to the jejunojejunostomy and also evaluat ed the Shane limb as well as the biliopancreatic limb. These remained dilated but were able to be lupe estebna back into the abdomen. They were in their appropriate orientation. Gastrojejunostomy was identi fied and showed no pathologic findings. The foreshortened mesentery at the site of the strictured small bowel in the distal ileum was address ed. We sharply cut the peritoneum overlying the mesentery to allow for this to be fully evaluated. It is blood supply taken very close to the small bowel with serial Cynthia clamps and 2-0 Vicryl ties. Then with our chosen areas both proximal and distal to the stenosis, we transected the bowel with 80 mm LV stapling devices. I placed the bowel in the appropriate orientation to create anastomosis. We used another 80 LV stapling device after we made enterotomies at the corner of the staple lines. Anastomosis was created and the common defect was reapproximated with a TA 60 blue load stapler. Th e corners were dunked in with 2-0 silk sutures as was the crotch of the staple line for the anastomos is. Hemostasis was excellent. Mesenteric defect was minimal and reapproximated with interrupted 3- 0 Vicryl sutures. The anastomosis was widely patent and we were able to milk some of the air that wa s proximally into the distal bowel so that it was minimal and we irrigated the working field copiousl y. Next, the bowel was dropped back into the abdomen. Omentum was laid over the midline incision and re approximated the fascial layer with Stratafix sutures. Wound was irrigated and midline incision reapp roximated with skin shania as were the additional 2 port sites. Sterile dressing was applied. The patient tolerated the procedure well and was transferred to the PACU in stable condition. [id number]/[facility] [place] #: [id number]
== END 2017-06-14 09:00 | disposition home or self-care (01) | DRG 331 ==
LOC: ED 11:35 → OR 19:05 → SSU 20:20
PROVIDERS: ADMIT Surgery; ATTEND Surgery
PROC: 0DJD4ZZ Inspection of Lower Intestinal Tract, Percutaneous Endoscopic Approach (ICD-10-PCS; 2017-06-07)
PROC: 0DB80ZZ Excision of Small Intestine, Open Approach (ICD-10-PCS; principal; 2017-06-07 18:00)
DX: K56.50 Intestinal adhesions [bands], unspecified as to partial versus complete obstruction (principal); G62.9 Polyneuropathy, unspecified; E83.42 Hypomagnesemia; K56.7 Ileus, unspecified; G43.909 Migraine, unspecified, not intractable, without status migrainosus; G47.30 Sleep apnea, unspecified; I10 Essential (primary) hypertension; I25.10 Atherosclerotic heart disease of native coronary artery without angina pectoris; J45.909 Unspecified asthma, uncomplicated; K21.9 Gastro-esophageal reflux disease without esophagitis; M19.012 Primary osteoarthritis, left shoulder; M19.011 Primary osteoarthritis, right shoulder; M47.9 Spondylosis, unspecified; M79.7 Fibromyalgia; Z96.1 Presence of intraocular lens; E66.9 Obesity, unspecified; H81.09 Meniere's disease, unspecified ear; Z90.710 Acquired absence of both cervix and uterus; Z88.1 Allergy status to other antibiotic agents; Z88.8 Allergy status to other drugs, medicaments and biological substances; Z98.84 Bariatric surgery status; Z88.2 Allergy status to sulfonamides; Z95.5 Presence of coronary angioplasty implant and graft; Z98.42 Cataract extraction status, left eye; Z98.41 Cataract extraction status, right eye; Z90.49 Acquired absence of other specified parts of digestive tract; Z90.721 Acquired absence of ovaries, unilateral; Z82.49 Family history of ischemic heart disease and other diseases of the circulatory system; Z83.3 Family history of diabetes mellitus; Z68.27 Body mass index [BMI] 27.0-27.9, adult; Z53.31 Laparoscopic surgical procedure converted to open procedure
CPT/HCPCS: 36415; 74019; 74177; 80048; 80053; 81003; 81015; 83605; 83690; 83735; 85025; 85610; 85730; 87077; 87086; 87186; 88307; 93005; 99283; A9270-GY; C1776; J0330; J0690; J1170; J1644; J2250; J2270; J2405; J2704; J2765; J3010; J3475; Q9967

== ENCOUNTER 2018-01-02 03:26 | Emergency (ER) | payer OTHER, MEDICARE ==
[2018-01-02] MEDS ORDERED: NS 0.9% 1000 ML* 1,000 ML IV ONE (03:59)
[2018-01-02 04:19] LABS: ABS Basophils 0.1 10^3/ul (0-0.2); ABS Eosinophils 0.2 10^3/ul (0-0.6); ABS Lymphocytes 1.2 10^3/ul (1.0-4.8); ABS Monocytes 0.6 10^3/ul (0-0.8); ABS Neutrophils 6.5 10^3/ul (1.5-7.7); ABS Nucleated RBC 0 10^3/ul; Eosinophil % 1.8 % (0-6); Hematocrit 36 % (35-47); Hemoglobin 12.1 g/dl (12.0-16.0); Lymphocyte % 14.1 % (25-47); Mean Corpuscular HGB Conc 33 g/dl (31-36); Mean Corpuscular Hemoglobin 31 pg (27-31); Mean Corpuscular Volume 93 fL (80-97); Mean Platelet Volume 7.6 um3 (7.4-10.4); Nucleated Red Blood Cells % 0; Platelet Count 262 10^3/ul (150-450); Red Cell Distribution Width 13 % (10.5-15); White Blood Count 8.5 10^3/ul (3.5-10.8)
[2018-01-02 04:36] LABS: EGFR Non-African American 40.4 (>60)
[2018-01-02] MEDS ORDERED: Potassium Chlor TAB* 20 MEQ TAB.ER PO ONE (04:53)
[2018-01-02] MEDS ORDERED: Ketorolac INJ* 30 MG/ML 1 ML VIAL IV PUSH ONE (04:55)
--- NOTE | 2018-01-02 05:23 | ED ---
GI/ HPI - HPI Summary HPI Summary: This is Tg Kumar documenting for attending Dr. Esteban Costa MD. Pt is 72 y/o F who presents to ED c/o difficulty urinating since 2 in the afternoon today. She has been in pain and uncomfortable. Rates her pain intensity as 8/10 in severity. Has the urge to urinate but is not able to. Denies fever or vomiting. PSHx for bowel obstruction and hernia. - History of Current Complaint Chief Complaint: EDUrogenitalProblems Time Seen by Provider: 01/02/18 03:38 Stated Complaint: UNABLE TO URINATE Hx Obtained From: Patient Onset/Duration: Started Hours Ago, Still Present Current Severity: Severe Pain Intensity: 8 Associated Signs and Symptoms: Positive: Other: - difficulty urinating. Negative: Vomiting, Fever - Additional Pertinent History Primary Care Physician: [id number] - Allergy/Home Medications Allergies/Adverse Reactions: Allergies Allergy/AdvReac Type Severity Reaction Status Date / Time atenolol Allergy Wheezing Verified 01/02/18 03:35 captopril Allergy Coughing Verified 01/02/18 03:35 ciprofloxacin Allergy Unknown Verified 01/02/18 03:35 Reaction Details clonidine Allergy Dizziness Verified 01/02/18 03:35 erythromycin base Allergy GI Upset Verified 01/02/18 03:35 nisoldipine Allergy Agitation Verified 01/02/18 03:35 Sulfa (Sulfonamide Allergy Hives Verified 01/02/18 03:35 Antibiotics) PMH/Surg Hx/FS Hx/Imm Hx Endocrine/Hematology History: Denies: Hx Diabetes Cardiovascular History: Reports: Hx Angioplasty, Hx Coronary Artery Disease, Hx Hypertension Denies: Hx Pacemaker/ICD Respiratory History: Reports: Hx Asthma - SEASONAL, Hx Sleep Apnea - DOES NOT USE HER C-PAP GI History: Reports: Hx Gastroesophageal Reflux Disease, Other GI Disorders - GASTRIC BYPASS STEVAN EN Y History: Denies: Hx Dialysis, Hx Renal Disease Musculoskeletal History: Reports: Hx Arthritis - NECK, SHOULDERS, Hx Fibromyalgia, Other Musculoskeletal History - FX 2 METATARSALS RIGHT FOOT 2010 Sensory History: Reports: Hx Cataracts - LENS IMPLANTS 2 YRS AGO, Hx Contacts or Glasses Denies: Hx Hearing Aid Opthamlomology History: Reports: Hx Cataracts - LENS IMPLANTS 2 YRS AGO, Hx Contacts or Glasses Neurological History: Reports: Hx Migraine, Other Neuro Impairments/Disorders - FIBROMYALGIA Psychiatric History: Denies: Hx Panic Disorder - Cancer History Hx Chemotherapy: No Hx Radiation Therapy: No - Surgical History Surgery Procedure, Year, and Place: BILATERAL CATARACTS, GASTRIC BYPASS 08/2010, INTERNAL HERNIA REPAIR 09/2011, DILATED STRICTURE &10/2011, HEART CATH 05/2007, HYSTERECTOMY 10/1980, RT OVARY REMOVED 05/1984 CHOLECYSTECTOMY 12/1993, AND CYSTOCELE REPAIR 08/1994 Hx Anesthesia Reactions: No - Immunization History Date of Tetanus Vaccine: UTD Date of Influenza Vaccine: 02/2017 Infectious Disease History: No Infectious Disease History: Denies: Traveled Outside the [place] in Last 30 Days - Family History Known Family History: Positive: Cardiac Disease, Hypertension, Diabetes - Social History Alcohol Use: None Hx Substance Use: No Substance Use Type: Reports: None Hx Tobacco Use: No Smoking Status (MU): Never Smoked Tobacco Have You Smoked in the Last Year: No Review of Systems Negative: Fever Negative: Vomiting Positive: urgency, other - difficulty urinating All Other Systems Reviewed And Are Negative: Yes Physical Exam - Summary Physical Exam Summary: VITAL SIGNS: Reviewed. GENERAL: Patient is a well-developed and nourished (MALE OR FEMALE) who is lying comfortable in the stretcher. Patient is not in any acute respiratory distress. HEAD AND FACE: No signs of trauma. No ecchymosis, hematomas or skull depressions. No sinus tenderness. EYES: PERRLA, EOMI x 2, No injected conjunctiva, no nystagmus. EARS: Hearing grossly intact. Ear canals and tympanic membranes are within normal limits. MOUTH: Oropharynx within normal limits. NECK: Supple, trachea is midline, no adenopathy, no JVD, no carotid bruit, no c- spine tenderness, neck with full ROM. CHEST: Symmetric, no tenderness at palpation LUNGS: Clear to auscultation bilaterally. No wheezing or crackles. CVS: Regular rate and rhythm, S1 and S2 present, no murmurs or gallops appreciated. ABDOMEN: Suprapubic fullness and tenderness. Soft. No signs of distention. No rebound no guarding, and no masses palpated. Bowel sounds are normal. EXTREMITIES: FROM in all major joints, no edema, no cyanosis or clubbing. NEURO: Alert and oriented x 3. No acute neurological deficits. Speech is normal and follows commands. SKIN: Dry and warm Triage Information Reviewed: Yes Vital Signs On Initial Exam: Initial Vitals Temp Pulse Resp BP Pulse Ox 96.7 F 66 18 122/65 98 01/02/18 03:28 01/02/18 03:28 01/02/18 03:28 01/02/18 03:28 01/02/18 03:28 Vital Signs Reviewed: Yes Diagnostics - Vital Signs Vital Signs Temp Pulse Resp BP Pulse Ox 01/02/18 05:00 55 93 01/02/18 04:52 54 96 01/02/18 04:50 53 147/73 97 01/02/18 03:28 96.7 F 66 18 122/65 98 - Laboratory Lab Results: Lab Results 01/02/18 01/02/18 Range/Units 04:08 04:08 WBC 8.5 (3.5-10.8) 10^3/ul RBC 3.90 L (4.00-5.40) 10^6/ul Hgb 12.1 (12.0-16.0) g/dl Hct 36 (35-47) % MCV 93 (80-97) fL MCH 31 (27-31) pg MCHC 33 (31-36) g/dl RDW 13 (10.5-15) % Plt Count 262 (150-450) 10^3/ul MPV 7.6 (7.4-10.4) um3 Neut % (Auto) 76.4 (38-83) % Lymph % (Auto) 14.1 L (25-47) % [place] % (Auto) 7.0 (0-7) % Eos % (Auto) 1.8 (0-6) % Baso % (Auto) 0.7 (0-2) % Absolute Neuts (auto) 6.5 (1.5-7.7) 10^3/ul Absolute Lymphs (auto) 1.2 (1.0-4.8) 10^3/ul Absolute Monos (auto) 0.6 (0-0.8) 10^3/ul Absolute Eos (auto) 0.2 (0-0.6) 10^3/ul Absolute Basos (auto) 0.1 (0-0.2) 10^3/ul Absolute Nucleated RBC 0 10^3/ul Nucleated RBC % 0 Sodium 138 (135-145) mmol/L Potassium 3.3 L (3.5-5.0) mmol/L Chloride 103 (101-111) mmol/L Carbon Dioxide 30 (22-32) mmol/L Anion Gap 5 (2-11) mmol/L BUN 19 (6-24) mg/dL Creatinine 1.30 H (0.51-0.95) mg/dL Est GFR ( Amer) 48.9 (>60) Est GFR (Non-Af Amer) 40.4 (>60) BUN/Creatinine Ratio 14.6 (8-20) Glucose 110 H (70-100) mg/dL Calcium 9.0 (8.6-10.3) mg/dL Magnesium 2.1 (1.9-2.7) mg/dL Total Bilirubin 0.40 (0.2-1.0) mg/dL AST 40 H (13-39) U/L ALT 59 H (7-52) U/L Alkaline Phosphatase 108 H (34-104) U/L C-Reactive Protein < 1.00 (<8.01) mg/L Total Protein 6.3 L (6.4-8.9) g/dL Albumin 4.0 (3.2-5.2) g/dL Globulin 2.3 (2-4) g/dL Albumin/Globulin Ratio 1.7 (1-3) Result Diagrams: 01/02/18 04:08 01/02/18 04:08 Lab Statement: Any lab studies that have been ordered have been reviewed, and results considered in the medical decision making process. GIGU Course/Dx - Course Course Of Treatment: Pt is 72 y/o F who presents to ED c/o difficulty urinating since 2 in the afternoon today. She has been in pain and uncomfortable. Has the urge to urinate but is not able to. Denies fever or vomiting. PSHx for bowel obstruction and hernia. Physical exam revealed suprapubic fullness and tenderness. In ED course pt was given Toradol, Klor Con, Augmentin and fluids. Pt is diagnosed with UTI and discharged home with a prescription of Augmentin and Pyridium. Pt is agreeable with this plan. - Diagnoses Provider Diagnoses: UTI (urinary tract infection) Discharge - Sign-Out/Discharge Documenting (check all that apply): Patient Departure - Discharge - Discharge Plan Condition: Stable Disposition: HOME Prescriptions: Amoxicillin/Clavulanate TAB* [Augmentin TAB 875*] 875 mg PO BID #14 tab Phenazopyridine TAB* [Pyridium 100 mg TAB*] 100 mg PO TID PRN #7 tab PRN Reason: Pain Patient Education Materials: Urinary Tract Infection in Women (ED) Referrals: Daren Root MD [Primary Care Provider] - 2 Days Additional Instructions: RETURN TO ED FOR ANY NEW OR WORSENING SYMPTOMS.
[2018-01-02 05:45] LABS: Urine Appearance Cloudy; Urine Blood 3+ (Negative); Urine Color Amber; Urine Ketones Negative (Negative); Urine Protein 2+(100 mg/dL) (Negative); Urine Red Blood Cell 3+(>10/hpf) (Absent); Urine Specific Gravity 1.024 (1.010-1.030); Urine Urobilinogen Negative (Negative); Urine White Blood Cell 3+(>20/hpf) (Absent)
[2018-01-02] MEDS ORDERED: Phenazopyridine TAB* 100 MG PO ONE (05:53)
[2018-01-02] MEDS ORDERED: Amoxicillin/Clavulanate TAB* 875 MG PO ONE (05:53)
[2018-01-02 06:15] VITALS: BP 135/69
--- NOTE | 2018-01-05 07:28 | PN ---
Progress Note - Progress Note Date of Service: 01/02/18 Note: E. coli grew in culture Patient placed on Augmentin prior to discharge This is sensitive to organism Nothing further at this time
== END 2018-01-02 06:12 | disposition home or self-care (01) ==
LOC: ED 03:26
DX: N39.0 Urinary tract infection, site not specified (principal); R39.15 Urgency of urination
CPT/HCPCS: 36415; 80053; 81003; 81015; 83735; 85025; 86140; 87077; 87086; 87186; 96361; 96374; 99284; A9270-GY; J1885

== ENCOUNTER 2018-05-18 05:35 | Observation (INO) | payer MEDICARE ==
--- NOTE | 2018-05-09 21:09 | HP ---
CC: Dr. Daren Root; [facility] for Metabolic and Bariatric Surgery * ADMISSION HISTORY AND PHYSICAL: DATE OF ADMISSION: 05/18/18 ATTENDING SURGEON: Dr. Nghia Weber * (TEE Sunshine dictating). CHIEF COMPLAINT: Ventral hernia. HISTORY OF PRESENT ILLNESS: This is a 72-year-old female who has undergone multiple abdominal surgeries including most recently a laparoscopy converted to laparotomy with small bowel resection in May 2017. She has an uneventful recovery; but in recent months, she has noted the development of a bulge in the upper abdomen that has increased in size and become increasingly painful particularly with exertion. She has not had any GI symptoms or anything to suggest incarceration or strangulation. She was seen in the office by Dr. Weber on 03/14/18, at which time the exam confirmed the presence of a 3 to 4 cm defect just above the umbilicus consistent with ventral hernia. Dr. Weber has discussed with her the indications for surgery, the risks, benefits and alternatives and the patient would like to proceed as scheduled with open repair ventral hernia with mesh. PAST MEDICAL HISTORY: Hypertension, coronary artery disease (based on previous catheterization medically managed and with no interval problems reported; she is followed annually by Dr. Iglesias), obstructive sleep apnea, (no longer using CPAP since her weight loss surgery), morbid obesity (status post laparoscopic Shane-en-Y gastric bypass in 2010 with weight loss of around 100 pounds which she has maintained, fibromyalgia, Meniere's disease, Raynaud's disease, depression, anxiety and asthma. PAST SURGICAL HISTORY: Includes the aforementioned laparotomy in 2017 and Shane- en- Y gastric bypass 2010. She also underwent laparoscopic repair of a ventral hernia with mesh in 2014. She has undergone prior cardiac catheterization in 2007 x2, hysterectomy for benign disease, bilateral oophorectomy, laparoscopic cholecystectomy and anterior cystocele repair. She is also status post bilateral cataract extraction and repair left rotator cuff. CURRENT MEDICATIONS: 1. Gabapentin 600 mg two tablets q.h.s. 2. Losartan 25 mg once daily. 3. Omeprazole 20 mg b.i.d. 4. Simvastatin 20 mg daily. 5. Aspirin 81 mg (the patient has stopped for surgery, her last dose was ). 6. Amitriptyline 50 mg q.h.s. 7. Cymbalta 60 mg daily. 8. Potassium chloride 10 mEq 2 tablets b.i.d. 9. Triamterene hydrochlorothiazide 37.5/25 once daily. 10. Diltiazem CD 240 mg once daily. 11. Diazepam 5 mg one-half q.a.m. 1 tablet q.h.s. (she takes for Meniere's disease) 12. Fluticasone nasal spray p.r.n. 13. Phenazopyridine 100 mg 2 tablets t.i.d. p.r.n. (not using recently). 14. ProAir HFA p.r.n. 15. Citracal 2 to 4 tablets daily. 16. Multivitamin daily. 17. Vitamin B12 daily. DRUG ALLERGIES: 1. CLONIDINE PATCH (dizziness and insomnia). 2. ATENOLOL (wheezing). 3. CAPTOPRIL (cough). 4. CIPRO (tendinitis). 5. ERYTHROMYCIN (hives. 6. SULFA (unspecified reaction). 7. NIFEDIPINE (exacerbation of Raynaud's). 8. PENICILLIN (rash). FAMILY HISTORY: Negative for anesthesia problems, bleeding or clotting disorders. SOCIAL HISTORY: The patient is . 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 She denies use of tobacco, alcohol or recreational drugs. REVIEW OF SYSTEMS: General: She is improving from a recent upper respiratory infection. No current constitutional symptoms. Weight has been stable. HEENT : No problems reported. She has full upper and lower dentures. Cardiovascular : She was seen by Dr. Iglesias yearly and we will obtain EKG from his office. No interval problems of chest pain, palpitations, lightheadedness, or shortness of breath. Respiratory: No recent exacerbations of her asthma. History of sleep apnea, resolved after weight loss surgery. GI: Last colonoscopy approximately 1 year ago with no recommendations for repeat. No other GI symptoms reported. : No problems reported. MEDICAL SALES: She is up-to-date for breast exam and mammogram within the past year. She no longer has Pap smears done. Endocrine: No diabetes or thyroid dysfunction. Musculoskeletal: History of fibromyalgia. Neuropsychiatric: History of depression and anxiety, Meniere's disease, no additions. Remainder of the review of systems is negative. PHYSICAL EXAMINATION GENERAL: Well-nourished and well developed female, in no acute distress. VITAL SIGNS: Height 64.5 inches, weight 164 pounds. Temperature 97.6, blood pressure 142/80, pulse 72, respirations 18. HEENT: Pupils are equal, round, reactive. EOMs intact. No conjunctival pallor. Oropharynx: Full upper and lower dentures. No intraoral lesions. NECK: No lymphadenopathy, thyromegaly or masses. LUNGS: Clear to auscultation. No wheezes. HEART: Regular rate and rhythm. No murmurs noted. ABDOMEN: Multiple well-healed surgical scars. There is a bulge apparent when the patient sits up from the supine position by palpation, there is a fascial defect just superior to the umbilicus, which is nontender and reducible. There may be some degree of rectus diastasis. Remainder of the abdomen is soft and nontender and without palpable masses or organomegaly. RECTAL: Genitalia and rectal not done. BACK: No spinous process or CVA tenderness. EXTREMITIES: No edema. NEUROLOGIC: Grossly intact. SKIN: Warm and dry. No suspicious rashes or lesions. IMPRESSION: Ventral hernia. PLAN/RECOMMENDATIONS: Open repair ventral hernia with mesh. TEE SUNSHINE [id number]/[facility] #: [id number] [facility]
[~2018-05-18 05:35] MED LIST: Buffered Lidocaine 0.9% SYRIN* 5 ML/SYR SYRINGE INTRADERM ONE
[2018-05-18] MEDS ORDERED: ceFAZolin 2 GM PREMIX in ORs 0 GM/0 ML BAG IVPB ONE (05:54)
[2018-05-18] MEDS ORDERED: Lactated Ringers 1000 ML Bag* 1,000 ML IV SCH (06:00)
[2018-05-18] MEDS ORDERED: Lidocaine 1% INJ* 10 MG/ML 30 ML SDV ONE (07:00)
[2018-05-18] MEDS ORDERED: Bupivacaine 0.25% EPI 200,000* 30 ML SDV ONE (07:01)
[2018-05-18] MEDS ORDERED: Clindamycin 600 MG IVPREMIX(* 600 MG/50 ML SDV ONE (07:21)
[2018-05-18] MEDS ORDERED: Atracurium* 10 MG/ML 10 ML VIAL ONE (07:27)
[2018-05-18] MEDS ORDERED: Propofol* 10 MG/ML 20 ML BTL ONE (07:27)
[2018-05-18] MEDS ORDERED: Midazolam* 1 MG/ML 2 ML VIAL (2 MG) ONE (07:27)
[2018-05-18] MEDS ORDERED: fentaNYL* 50 MCG/ML 2 ML VIAL (100 MCG VIAL) ONE ×3 (07:27→11:18)
[2018-05-18] MEDS ORDERED: Dexamethasone IV* 4 MG/ML 1 ML (4 MG) ONE (08:04)
[2018-05-18] MEDS ORDERED: Glycopyrrolate IV* 0.2 MG/ML 1 ML VIAL ONE ×2 (08:25→09:20)
[2018-05-18] MEDS ORDERED: Ondansetron INJ* 2 MG/ML VIAL IV PRN ×2 (09:17→12:34)
[2018-05-18] MEDS ORDERED: DiMENhydriNATE IV* 50 MG/ML VIAL IV PUSH PRN (09:17)
[2018-05-18] MEDS ORDERED: Naloxone* 0.4 MG/ML 1 ML VIAL IV PRN (09:17)
[2018-05-18] MEDS ORDERED: Neostigmine Methylsulfate* 1 MG/ML 10 ML VIAL (1 mg/ml) ONE (09:20)
[2018-05-18] MEDS: fentaNYL* 50 MCG/ML 2 ML VIAL (100 MCG VIAL) IV PRN ×5 (09:45→11:19)
[2018-05-18] MEDS ORDERED: HYDROmorphone INJ1* 1 MG/ML SYRINGE ONE (10:06)
[2018-05-18] MEDS: HYDROmorphone INJ1* 1 MG/ML SYRINGE IV PRN ×5 (10:06→10:35)
[2018-05-18] MEDS ORDERED: oxyCODONE TAB* 5 MG TAB ONE (10:39)
[2018-05-18] MEDS ORDERED: Acetaminophen IV 1GM/100ML * 100 ML ONE (10:39)
[2018-05-18] MEDS ORDERED: Acetaminophen TAB* 325 MG PO PRN (12:36)
[2018-05-18] MEDS ORDERED: ALBUTEROL MDI INH PRN (12:36)
[2018-05-18] MEDS ORDERED: Naloxone* 0.4 MG/ML 1 ML VIAL IV PUSH PRN (13:08)
[2018-05-18] MEDS ORDERED: Morphine PCA* 150 MG in PREMIX PCA SCH (14:00)
[2018-05-18] MEDS: Lactated Ringers 1000 ML Bag* 1,000 ML IV SCH (14:01)
--- NOTE | 2018-05-18 15:59 | OP ---
CC: Dr. Daren Root; [facility] * DATE OF OPERATION: 05/18/18 - ROOM #347 DATE OF : 47 SURGEON: Nghia Weber MD SENIOR SERVICE AIDE: Elenita Self NP ANESTHESIOLOGIST: Dr. Amador. ANESTHESIA: General. PRE-OP DIAGNOSIS: Ventral hernia. POST-OP DIAGNOSIS: Ventral hernia. OPERATIVE PROCEDURE: Open ventral hernia repair with mesh. BLOOD LOSS: 100 cc. FLUIDS: 1400 cc of crystalloid fluid given. SPECIMEN: Hernia sac. COUNTS: Lap pad count and instrument count correct at the end of the procedure. DRAINS: #7 ASHWINI drain left in the subcutaneous space. DESCRIPTION OF PROCEDURE: The patient was identified in the preoperative area. She was marked, consent signed after discussion of the case. She was then taken to the operating room and placed in the operating table in supine position. Preoperative antibiotics were given. Sequential devices were placed on bilateral lower extremities. General anesthesia was induced. The patient's abdomen was prepped and draped in a standard surgical fashion. A time-out was performed. Previous mini laparotomy incision was re-entered sharply. We deepened this down to the hernia sac which was cleared off and flaps were made both left and right until we reached reasonable fascia. We extended it superiorly and inferiorly and then enter the hernia sac. Upon entering the hernia sac, I saw normal-appearing bowel. There was minimal attachments to the hernia sac itself which was ligated. Attention was then turned towards the intraabdominal contents. The small bowel and omentum were adhered along the midline as well as more simply in the lateral aspect. These were all cleared with sharp dissection. We noted additional 1.5 cm hernia superiorly approximately 2 cm from the initial hernia site. I decided to just close this with interrupted #1 Vicryl stitches and we were going to ensure that our mesh was also behind this portion of the hernia. Once we cleared off the edges, measure of the hernia was approximately 4 x 3 cm. The fascia would came together well. We then placed a 12 x [address] hernia patch into the hernia defect after placing 0 Prolene sutures at all 4 points. This parachuted in and was sutured to the fascia laterally and inferiorly and superiorly making sure that the superior one covered the smaller hernia defect superiorly. This was then tacked utilizing the pockets to the anterior abdominal wall. We then closed the fascia with interrupted #1 Vicryl stitches in [id number] fashion. The wound was then irrigated. Hemostasis was achieved. #7 ASHWINI drain was then brought in through a separate stab incision and draped into the subcutaneous tissue. The umbilical skin which had been dissected free was then tacked to the anterior abdominal wall with 2-0 Vicryl stitch. We checked the umbilicus to make sure there was no injury and there was not. The skin incision was then reapproximated with skin shania followed by sterile dressing and the ASHWINI drain was sutured in with 3-0 Prolene suture. Sterile dressing was applied. The patient tolerated the procedure well and was transferred to PACU in stable condition. [id number]/BRENNA #: [id number] FREDI
[2018-05-18] MEDS: Omeprazole CAP* 20 MG PO SCH (21:52)
[2018-05-18] MEDS: Potassium Chlor TAB* 10 MEQ TAB.ER PO SCH (21:52)
[2018-05-18] MEDS: Amitriptyline TAB* 50 MG PO SCH (23:30)
[2018-05-18] MEDS: Gabapentin CAP(*) 400 MG PO SCH (23:30)
[2018-05-18] MEDS: Ketorolac INJ* 30 MG/ML 1 ML VIAL IV SCH (23:37)
[2018-05-19] MEDS: Lactated Ringers 1000 ML Bag* 1,000 ML IV SCH ×2 (03:41→16:55)
[2018-05-19] MEDS: Heparin VIAL(*) 5000 UNITS/ML VIAL (FIVE THOUSAND) SUBCUT SCH ×3 (05:54→21:24)
[2018-05-19] MEDS: Ketorolac INJ* 30 MG/ML 1 ML VIAL IV SCH ×3 (05:54→17:34)
[2018-05-19 06:20] LABS: ABS Basophils 0 10^3/ul (0-0.2); ABS Eosinophils 0 10^3/ul (0-0.6); ABS Lymphocytes 0.4 10^3/ul (1.0-4.8); ABS Monocytes 0.6 10^3/ul (0-0.8); ABS Neutrophils 13.3 10^3/ul (1.5-7.7); ABS Nucleated RBC 0 10^3/ul; Eosinophil % 0 %; Hematocrit 33 % (35-47); Hemoglobin 10.7 g/dl (12.0-16.0); Lymphocyte % 2.6 %; Mean Corpuscular HGB Conc 33 g/dl (31-36); Mean Corpuscular Hemoglobin 29 pg (27-31); Mean Corpuscular Volume 89 fL (80-97); Mean Platelet Volume 7.8 fL (7.4-10.4); Nucleated Red Blood Cells % 0; Platelet Count 289 10^3/ul (150-450); Red Blood Count 3.68 10^6/ul (4.00-5.40); Red Cell Distribution Width 14 % (10.5-15); White Blood Count 14.2 10^3/ul (3.5-10.8)
[2018-05-19] MEDS: Diazepam TAB(*) 5 MG PO SCH (09:00)
[2018-05-19] MEDS ORDERED: Triamterene/HCTZ 37.5-25 MG* CAP PO SCH ×2 (09:00→09:43)
[2018-05-19] MEDS ORDERED: Losartan TAB* 25 MG PO SCH ×2 (09:00→09:43)
[2018-05-19] MEDS ORDERED: Diltiazem CD CAP* 240 MG PO SCH ×2 (09:00→09:42)
[2018-05-19] MEDS: Potassium Chlor TAB* 10 MEQ TAB.ER PO SCH ×2 (09:06→21:20)
[2018-05-19] MEDS: DULoxetine DR CAP* 60 MG CAP.DR PO SCH (09:06)
[2018-05-19] MEDS: Atorvastatin* 10 MG TAB PO SCH (09:06)
[2018-05-19] MEDS: Omeprazole CAP* 20 MG PO SCH ×2 (09:06→21:22)
[2018-05-19] MEDS ORDERED: oxyCODONE/Acetamin 5/325 MG* TAB PO PRN (09:40)
[2018-05-19] MEDS ORDERED: Ibuprofen TAB* 600 MG PO PRN (09:42)
--- NOTE | 2018-05-19 09:45 | PN ---
Progress Note - Progress Note Date of Service: 05/19/18 Note: S: POD #1. 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 No N/V. Ambulating some. O: Vital Signs - 8 hr 05/19/18 05/19/18 05/19/18 01:49 01:51 03:30 Temperature 98.0 F Pulse Rate 63 Respiratory 14 14 15 Rate Blood Pressure 121/53 (mmHg) O2 Sat by Pulse 93 94 Oximetry 05/19/18 05/19/18 05/19/18 03:42 05:00 06:48 Temperature Pulse Rate Respiratory 12 10 Rate Blood Pressure (mmHg) O2 Sat by Pulse 93 94 95 Oximetry 05/19/18 05/19/18 05/19/18 07:00 07:32 07:58 Temperature 98.0 F Pulse Rate 58 Respiratory 18 16 Rate Blood Pressure 109/48 (mmHg) O2 Sat by Pulse 97 98 98 Oximetry 05/19/18 09:00 Temperature Pulse Rate 60 Respiratory Rate Blood Pressure 98/49 (mmHg) O2 Sat by Pulse Oximetry Intake and Output Last 24 Hours 05/17/18 05/18/18 05/19/18 05/20/18 06:59 06:59 06:59 06:59 Intake Total 3910 Output Total 545 Balance 3365 Weight 163 lb Intake: IV Fluids 2590 LR 2590 Oral 1320 Output: ASHWINI #1 95 Urine 450 Other: # Bowel Movements 0 Gen: appears comfortable; sitting up eating breakfast Heart: reg Lungs: clear; decreased at R base Abd: +BS; incision w/ small amt drainage under Tegaderm; soft; incisional tenderness; ASHWINI small amt sang drainage A: s/p open repair ventral hernia w/ mesh; improving P: will try po analgesics; poss d/c later today (w/ drain?) if meets criteria
[2018-05-19] MEDS: oxyCODONE/Acetamin 5/325 MG* TAB PO PRN ×3 (10:01→21:22)
[2018-05-19] MEDS: Amitriptyline TAB* 50 MG PO SCH (21:20)
[2018-05-19] MEDS: Gabapentin CAP(*) 400 MG PO SCH (21:21)
[2018-05-20] MEDS: Ketorolac INJ* 30 MG/ML 1 ML VIAL IV SCH ×2 (00:40→06:13)
[2018-05-20] MEDS: Lactated Ringers 1000 ML Bag* 1,000 ML IV SCH (06:10)
[2018-05-20] MEDS: Heparin VIAL(*) 5000 UNITS/ML VIAL (FIVE THOUSAND) SUBCUT SCH ×2 (06:12→13:47)
[2018-05-20] MEDS: DULoxetine DR CAP* 60 MG CAP.DR PO SCH (09:13)
[2018-05-20] MEDS: Potassium Chlor TAB* 10 MEQ TAB.ER PO SCH (09:13)
[2018-05-20] MEDS: oxyCODONE/Acetamin 5/325 MG* TAB PO PRN (09:14)
[2018-05-20] MEDS: Atorvastatin* 10 MG TAB PO SCH (09:15)
[2018-05-20] MEDS: Omeprazole CAP* 20 MG PO SCH (09:15)
[2018-05-20] MEDS: Diazepam TAB(*) 5 MG PO SCH (09:15)
[2018-05-20] MEDS ORDERED: Ketorolac INJ* 15 MG/ML 1 ML VIAL IV PUSH SCH (12:00)
[2018-05-20] MEDS ORDERED: Ibuprofen TAB* 600 MG PO PRN (12:35)
[2018-05-20 13:27] VITALS: BP 143/56
--- NOTE | 2018-05-20 16:56 | PN ---
Progress Note - Progress Note Date of Service: 05/20/18 Note: Late entry Surgery Note: S: patient seen ~ 10:00 this a.m. Discussed w/ Dr. Weber. BRAD for d/c home. See dictated summary.
--- NOTE | 2018-05-21 07:58 | DS ---
CC: Dr. Daren Root * DISCHARGE SUMMARY: DATE OF ADMISSION: 05/18/18 DATE OF DISCHARGE: 05/20/18 ATTENDING SURGEON: Dr. Nghia Weber.* (DICTATED BY TEE GUTIÉRREZ) HOSPITAL COURSE: Please refer to admission history and physical, operative note , and daily progress notes for details. The patient was taken to the operating room on 05/18/18, at which time she underwent open repair of ventral hernia with mesh. A Federico-Green drain was left in place. She did have some difficulty both with pain control and oxygen saturation in the early postoperative period and it was decided to admit her for pain control and oxygen therapy. She has gradually progressed over the last 24 hours such that her pain is currently controlled with oral medications. She is using the incentive spirometer Inspiron well and is ambulating. PHYSICAL EXAMINATION: Vital Signs: Temperature 97.7, blood pressure 143/56, pulse 56, respirations 16, room air saturation 94%. Heart: Regular rate and rhythm. Lungs: Clear to auscultation even to the bases. Abdomen: Bowel sounds present. Soft with incisional tenderness as would be expected. The Federico-Green drain output was approximately 45 cc from the previous 24 hours and was light sanguineous in color and was thus removed, and clean dry dressings were placed over both the incision and the ASHWINI site. Abdominal binder was re-secured. IMPRESSION: Status post open repair of ventral hernia with mesh, improved. PLAN: Home today. Instructions were reviewed regarding wound care and activity. She will continue to use the abdominal binder. She has a followup next week in our office. TEE GUTIÉRREZ [id number]/[facility] #: [id number] MTDD
== END 2018-05-20 14:40 | disposition home or self-care (01) ==
LOC: OR 05:35 → SSU 13:25
PROVIDERS: ADMIT Surgery; ATTEND Surgery
DX: K43.9 Ventral hernia without obstruction or gangrene (principal); I10 Essential (primary) hypertension; I25.10 Atherosclerotic heart disease of native coronary artery without angina pectoris; G47.33 Obstructive sleep apnea (adult) (pediatric); E66.01 Morbid (severe) obesity due to excess calories; Z98.84 Bariatric surgery status; M79.7 Fibromyalgia; I73.00 Raynaud's syndrome without gangrene; F41.8 Other specified anxiety disorders; J45.909 Unspecified asthma, uncomplicated; Z88.0 Allergy status to penicillin; Z88.2 Allergy status to sulfonamides; Z79.82 Long term (current) use of aspirin
CPT/HCPCS: 36415; 85025; 88302; 96372; 96374; 96375; 96376; A9270-GY; C1781; G0378; J0690; J1100; J1170; J1644; J1885; J2250; J2270; J2704; J2710; J3010

== ENCOUNTER 2018-06-23 18:01 | Emergency (ER) | payer MEDICARE, OTHER ==
--- OUTSIDE RECORDS SUMMARY | 2018-06-23 18:58 | XMS REPORT | Continuity of Care Document ---
:1945 External Reference #:[id number] Author Name Shirley Davis Care Team Providers Name Role Phone Daren Root MD Primary Care Physician Unavailable Payers Type Date Identification Numbers Payment Provider Subscriber Policy Number: [id number] [employer] Donnamarie B Gulnac PayID: [id number] [address] [place] [address] Effective: 2011 Policy Number: [id number] Medicare Donnamarie B Gulnac Expires: 2017 PayID: [id number] [address] [place] [address] Advance Directives Description No Information Available Problems Date Description Provider Status Onset: 04/13/2017 Occult blood in stools Daren Root M.D.,FACP Active Onset: 08/20/2014 Coronary arteriosclerosis Kaden Iglesias M.D., FACC, Active FASNC Onset: 04/01/2017 Iron deficiency anemia Daren Root M.D.,FACP Active Onset: 04/01/2017 Essential hypertension Daren Root M.D.,FACP Active Onset: 04/23/2017 Shane-en-Y gastrojejunostomy Daren Root M.D.,FACKem Active Note: sees Dr. Weber Onset: 04/23/2017 Major depressive disorder Daren Root M.D.,FACP Active Onset: 04/23/2017 Fibromyalgia Daren Root M.D.,FACP Active Onset: 10/03/2014 Chest pain Kaden Iglesias M.D., [facility], Inactive FASNC Inactive: 04/01/2017 Family History Date Family Member(s) Problem(s) Comments General Cancer General Diabetes General Heart Disease Father SC fatal age 70 Father due to Heart () - 70s Disease Mother Cancer Mother due to Colon () - complications Cancer of colon cancer surgery Mother Heart Disease age 83 Siblings 1 Brother fatal SC age 44 MGF SC, age 60 MGM Heart Disease, Breast Ca, age 80 PGM Breast Ca, age 55 PGF SC Siblings None none now : (age 44 First Brother due to SC Years) Social History Type Date Description Comments Sex Unknown Marital Status Lives With Occupation Retired Tobacco Use Start: Unknown Never Smoked Cigarettes Smoking Status Reviewed: 06/20/18 Never Smoked Cigarettes ETOH Use Denies alcohol use ETOH Use 04/23/2017 Rarely consumes beer Tobacco Use Start: Unknown Patient has never smoked Recreational Drug Use Denies Drug Use Exercise Type/Frequency Exercises regularly Works in her yard and garden Allergies, Adverse Reactions, Alerts Date Description Reaction Status Severity Comments 07/19/2013 Catapres-TTS Active dizziness/insomnia 07/19/2013 Tenormin Active wheezing 07/19/2013 Capoten Active cough 07/19/2013 Cipro Active tendonitis 07/19/2013 Erythromycin Active 07/19/2013 Sulfa Antibiotics Active 07/19/2013 Nifibtine Active 04/01/2016 Beta Adrenergic Blockers Active Disabling raynauds 08/23/2017 Penicillin Active rash Medications Medication Date Status Form Strength Qnty SIG Indications Ordering Provider Alendronate 06/09 Active Tablets 70mg 12tab take one M85.9 Zsofia Sodium s tablet by Omero, mouth once SHOWER MAID a week as directed Alendronate 06/05 Active Tablets 70mg 4tabs 1 tab by Zsofia Sodium mouth once Omero, a week with SHOWER MAID a cup of water, first in the morning, 1 hour prior to any other intake. Do not lie down after taking it. Fluticasone 05/07 Active Suspension 50mcg/Act 16uni use 2 Zsofia Propionate ts sprays in Omero, each SHOWER MAID nostril one time a day for 1 week, then 1 spray thereafter Phenazopyridine 01/04 Active Tablets 100mg 24tab 2 tabs po Zsofia HCL s tid as Omero, needed [employer] [place] Blood Pressure 09/29 Active Misc 1unit use daily I10 Zsofia Cuff s as Omero, instructed SHOWER MAID to check bp Gabapentin 09/15 Active Tablets 600mg 180ta 2 tab at bs night Omero, [employer]OWER [place] Losartan 08/23 Active Tablets 25mg 90tab 1 by mouth I10 Zsofia Potassium s every day Omero, [employer]ID Omeprazole 03/[address] 20mg 240ca 1 by mouth Zsofi ps twice every , day SHOWER [place]ID Simvastatin 08/25 Active Tablets 20mg 90tab 1 by mouth Zsofia s every day Omero, [employer] Aspir-[address] 08/[address] 81mg 1 by mouth Kaden every day López Iglesias M.D., [facility] Amitriptyline Active Tablets 50mg 90tab 1 by mouth M79.7 Zsofia HCL s every night Omero, at bedtime [employer] [place] Cymbalta Active Caps DR 60mg 90cap 1 by mouth Zsofia Part s every day Omero, [employer] [place] Klor-Con M10 Active Tablets ER 10Meq 180ta 2 by mouth Zsofia bs twice every , day [place] Vitamin B-12 Active Tablets Sub 500mcg 30tab 1 by mouth Unknown /0000 s every day( when remembers) Triamterene/Hydr Active Capsules 37.5-25mg 90cap 1 by mouth I10 Zsofia ochlorothiazide / s every day Omero, [employer] Multivitamin 00 Active Tablets 1 by mouth Unknown /0000 every day (when she remembers) Citracal 00 Active Tablets 2-4 a day Unknown /0000 PO(when remembers) Diazepam 00 Active Tablets 5mg 45tab 1/2 tab by H81.09 Zsofia / s mouth two Omero, to three SHOWER MAID times a day Diltiazem CD Active Caps ER 240mg 90cap 1 by mouth Zsofia /0000 24HR s every day Omero, [employer] Oxycodone-Acetam 05/09 Hx Tablets 5-325mg 20tab 1--2 tab by K43.9 Mari Higginbotham inophen s mouth every Foster, 4- 6 hours MD as needed for pain Azithromycin 05/07 Hx Tablets 250mg 6tabs take 2 tabs Zsofi on day one Omero, and 1 tabs SHOWER MAID daily for 4 days Keflex 01/04 Hx Capsules 500mg 14cap 1 tab po Zsofia s bid for 7 Omero, days [employer] [place]ID Gabapentin 09/15 Hx Tablets 600mg 90tab 1 tab at Elizabeth /2018 s night MARIO ALBERTO Lemus Macrobid 05/09 Hx Capsules 100mg 14cap 1 tab by Other s mouth twice Ordering - a day x 7 Provider Pyridium 05/09 Hx Tablets 200mg 9tabs 1 tab three Other times a day Ordering - for 3 days Provider 05/12 Carafate 05/03 Hx Suspension 1GM/10ML 420ml 10 K28.9 Nghia P. /2017 milliliters Bollo, by mouth 2 MD, FACS times daily (No longer taking) Fluconazole 04/23 Hx Tablets 100mg 7tabs every day B37.0 Daren for 7 days Cleopatra Root, - M.DIsaiah,FACP 04/30 Nystatin 02/04 Hx Suspension [id number] 473ml small amt B37.0 t/ML swish and Lemus, - swallow tid [employer] 04/23 Diltiazem CD 03/31 Hx Caps ER 240mg 30cap 1 by mouth Kaden 24HR s every day López Iglesias, 03/31 Jason, FACFORD Pierce Metoprolol 08/20 Hx Tablets ER 25mg 90tab 1 PO qd Kaden Succinate ER /2014 24HR s López Iglesias 03/31 Jason, FACFORD Pierce Oxycodone HCL 10/19 Hx Tablets 5mg 40tab 1-2 tab by Johnnie s mouth every Luis Enrique, - 4-6 hours M.D. 01/15 as needed for breakthroug h pain Percocet 10/10 Hx Tablets 5-325mg 42tab take 1-2 Johnnie s tabs by Luis Enrique, - mouth tid M.D. 01/15 as needed pain Percocet 09/07 Hx Tablets 5-325mg 60tab 1-2 tabs by Johnnie s mouth q6 as Young, - needed pain M.D. 01/15 Amlodipine 08/28 Hx Tablets 5mg 90tab 1 by mouth Kaden Besylate s every day López Iglesias, 03/31 M.D., /2015 [facility] Metoprolol 08/28 Hx Tablets ER 50mg 90tab 1 by mouth Kaedn Succinate ER 24HR s every day López Iglesias, 08/20 M.D., /2014 [facility] Flovent HFA 08/28 Hx Aerosol 110mcg/Ac 12gm as needed Kaden t López Iglesias M.D., [facility] Veramyst 08/28 Hx Suspension 27.5mcg/S 10gm as needed pray López Iglesias, 02/03 M.D., [facility] Naproxen 07/19 Hx Tablets 500mg 45tab 1 tablet Flor s q12 hours Livan, - prn pain M.D. 06/22 [place] 05/20 Hx Tablets 5-325mg 50tab 1-2 po q4h s prn Dirk - M.DIsaiah 10/30 Ibuprofen 05/20 Hx Tablets 600mg 90tab tid s Dirk - M.DIsaiah 08/28 Gabapentin Hx Capsules 300mg 90cap 1 by night Elizabeth / s at night Allan, - [employer] 09/15 Bumetanide Hx Tablets 0.5mg 90tab 2 tabs po Unknown /0000 s twice daily - by mouth 03/31 /[address] 40mg 90cap 1 by mouth Unknown /0000 s every day - 04/01 Biotin Hx Tablets 1000mcg three a Unknown /0000 day(does - not take 04/23 regularly) /2016 Ferrous Hx Tablets 324(37.5F 1 by mouth Unknown Gluconate /0000 e) mg every day - 08/23 Acetaminophen Hx Tablets 500mg take 1-2 Unknown Extra Strength /0000 tablet - every 6 01/02 hours needed for pain. Medications Administered in Office Medication Date Status Form Strength Qnty SIG Indications Ordering Provider Inj, 10/08/ Administered Injection Kaden Dawn Regadenoson, 0.1 2014 MG Jason Iglesias, FORD ARGUETA Technetium TC 10/08/ Administered Injection Kaden Dawn 99M Tetrofosmin, 2014 Harris, Per Unit Dose Up M.D., To 40 [place] ARGUETA Depomedrol 80MG 05/03/ Administered Injection Flor 2012 Jason Licona Inj, 08/08/ Administered Injection Kaden Dawn Regadenoson, 0.1 2012 MG Jason Iglesias, FORD ARGUETA Aminophylline 08/08/ Administered Injection Kaden Dawn 2012 Jason Iglesias, ANTOINEFORD Technetium TC 08/08/ Administered Injection Kaden Dawn 99M Tetrofosmin, 2012 Harris, Per Unit Dose Up M.D., To 40 ANTOINEBenton Immunizations CPT Code Status Date Vaccine Lot # [id number] Given 02/06/2017 Pneumonia Vaccine [id number] Given 02/06/2017 Influenza Virus Vaccine, Quadrivalent, Split, Preservative Free Vital Signs Date Vital Result Comment 06/20/2018 2:32pm Heart Rate 60 /min BP Systolic Sitting 140 mmHg BP Diastolic Sitting 80 mmHg Respiratory Rate 18 /min Body Temperature 97.1 F 06/09/2018 9:56am Height 64.5 inches 5'4.50" Weight 157.38 lb Heart Rate 72 /min BP Systolic Sitting 136 mmHg BP Diastolic Sitting 72 mmHg O2 % BldC Oximetry 95 % BMI (Body Mass Index) 26.6 kg/m2 06/02/2018 9:58am Height 64.5 inches 5'4.50" Weight 157.00 lb Heart Rate 70 /min BP Systolic Sitting 144 mmHg Lue reg cuff BP Diastolic Sitting 74 mmHg Lue reg cuff Respiratory Rate 16 /min BMI (Body Mass Index) 26.5 kg/m2 05/27/2018 2:40pm Heart Rate 78 /min BP Systolic Sitting 148 mmHg BP Diastolic Sitting 78 mmHg Respiratory Rate 18 /min Body Temperature 97.2 F 05/09/2018 9:46am Height 64.5 inches 5'4.50" Weight 164.00 lb Heart Rate 72 /min BP Systolic Sitting 142 mmHg BP Diastolic Sitting 80 mmHg Respiratory Rate 18 /min Body Temperature 97.6 F BMI (Body Mass Index) 27.7 kg/m2 05/04/2018 10:09am Height 64.5 inches 5'4.50" Weight 164.00 lb Heart Rate 66 /min BP Systolic Sitting 132 mmHg BP Diastolic Sitting 70 mmHg Body Temperature 98.3 F O2 % BldC Oximetry 97 % BMI (Body Mass Index) 27.7 kg/m2 03/14/2018 9:21am Height 64.5 inches 5'4.50" Weight 164.00 lb Heart Rate 72 /min BP Systolic Sitting 144 mmHg BP Diastolic Sitting 78 mmHg Respiratory Rate 18 /min Body Temperature 97.9 F BMI (Body Mass Index) 27.7 kg/m2 09/29/2017 9:41am Height 64.5 inches 5'4.50" Weight 162.12 lb Heart Rate 58 /min BP Systolic Sitting 128 mmHg BP Diastolic Sitting 72 mmHg O2 % BldC Oximetry 97 % BMI (Body Mass Index) 27.4 kg/m2 09/20/2017 9:18am Height 64.5 inches 5'4.50" Weight 160.00 lb Heart Rate 78 /min BP Systolic 130 mmHg BP Diastolic 82 mmHg Respiratory Rate 16 /min Body Temperature 98.0 F BMI (Body Mass Index) 27.0 kg/m2 08/23/2017 10:53am Weight 160.00 lb Heart Rate 67 /min BP Systolic 150 mmHg BP Diastolic 78 mmHg Body Temperature 98.0 F O2 % BldC Oximetry 95 % 08/11/2017 9:27am Height 64.5 inches 5'4.50" Weight 162.00 lb No shoes Heart Rate 70 /min BP Systolic Sitting 162 mmHg Rue lrg cuff BP Diastolic Sitting 74 mmHg Rue lrg cuff BP Systolic Standing 140 mmHg Rue lrg cuff BP Diastolic Standing 70 mmHg Rue lrg cuff Respiratory Rate 17 /min BMI (Body Mass Index) 27.4 kg/m2 Ejection Fraction 55-60% 10/05/2014-echo 06/23/2017 9:22am Weight 160.00 lb Heart Rate 61 /min BP Systolic Sitting 132 mmHg BP Diastolic Sitting 78 mmHg Body Temperature 97.4 F O2 % BldC Oximetry 99 % 06/17/2017 10:44am Weight 163.00 lb Heart Rate 72 /min BP Systolic 142 mmHg BP Diastolic 76 mmHg Respiratory Rate 16 /min Body Temperature 97.2 F 05/03/2017 9:25am Height 64.5 inches 5'4.50" Weight 173.00 lb Heart Rate 72 /min BP Systolic 146 mmHg BP Diastolic 84 mmHg Respiratory Rate 16 /min Body Temperature 98.4 F BMI (Body Mass Index) 29.2 kg/m2 04/23/2017 3:51pm Height 64.75 inches 5'4.75" Weight 171.25 lb Heart Rate 64 /min BP Systolic Sitting 152 mmHg BP Diastolic Sitting 82 mmHg BP Systolic Recheck 160 mmHg BP Diastolic Recheck 100 mmHg O2 % BldC Oximetry 93 % BMI (Body Mass Index) 28.7 kg/m2 02/04/2017 8:57am Height 64.5 inches 5'4.50" Weight 170.12 lb Heart Rate 62 /min BP Systolic Sitting 158 mmHg BP high 178/82 rechecked BP Diastolic Sitting 80 mmHg BP high 178/82 rechecked Respiratory Rate 14 /min Body Temperature 97.8 F BMI (Body Mass Index) 28.7 kg/m2 04/20/2016 10:34am Height 65 inches 5'5" Weight 165.00 lb Heart Rate 66 /min BP Systolic 144 mmHg BP Diastolic 80 mmHg Respiratory Rate 16 /min Body Temperature 97.3 F BMI (Body Mass Index) 27.5 kg/m2 04/01/2016 9:17am Height 65 inches 5'5" Weight 164.00 lb no shoes Heart Rate 64 /min BP Systolic Sitting 152 mmHg Lue lrg cuff BP Diastolic Sitting 80 mmHg Lue lrg cuff BP Systolic Standing 146 mmHg Lue lrg cuff BP Diastolic Standing 76 mmHg Lue lrg cuff Respiratory Rate 17 /min BMI (Body Mass Index) 27.3 kg/m2 Ejection Fraction 55-60% 10/05/2014 10/03/2014 9:31am Height 65 inches 5'5" Weight 172.00 lb w/o shoes Heart Rate 60 /min reg BP Systolic Sitting 132 mmHg Ra, reg BP Diastolic Sitting 80 mmHg Ra, reg BP Systolic Standing 126 mmHg Ra BP Diastolic Standing 70 mmHg Ra Respiratory Rate 18 /min BMI (Body Mass Index) 28.6 kg/m2 Ejection Fraction 56% 08/12/2012 08/20/2014 9:39am Height 65 inches 5'5" Weight 178.50 lb w/o shoes Heart Rate 60 /min reg BP Systolic Sitting 130 mmHg LA, reg cuff BP Diastolic Sitting 86 mmHg LA, reg cuff BP Systolic Standing 126 mmHg LA BP Diastolic Standing 84 mmHg LA Respiratory Rate 16 /min BMI (Body Mass Index) 29.7 kg/m2 01/16/2014 1:03pm Height 65 inches 5'5" Heart Rate 58 /min BP Systolic 142 mmHg BP Diastolic 77 mmHg 11/30/2013 12:55pm Height 65 inches 5'5" Weight 170.00 lb Heart Rate 70 /min BP Systolic 143 mmHg BP Diastolic 77 mmHg Pain Level 2 BMI (Body Mass Index) 28.3 kg/m2 10/31/2013 12:58pm Height 65 inches 5'5" Heart Rate 64 /min BP Systolic 152 mmHg BP Diastolic 76 mmHg 10/10/2013 9:50am Height 65 inches 5'5" Weight 170.00 lb Heart Rate 61 /min BP Systolic 133 mmHg BP Diastolic 77 mmHg BMI (Body Mass Index) 28.3 kg/m2 08/28/2013 8:59am Height 65 inches 5'5" Weight 170.00 lb without shoes Heart Rate 72 /min 74 standing BP Systolic 154 mmHg sitting BP Diastolic 82 mmHg sitting BP Systolic Standing 158 mmHg standing BP Diastolic Standing 90 mmHg standing BMI (Body Mass Index) 28.3 kg/m2 08/15/2013 3:19pm Height 65 inches 5'5" Heart Rate 71 /min BP Systolic 154 mmHg BP Diastolic 79 mmHg 07/27/2013 8:45am Height 65 inches 5'5" Weight 165.00 lb Heart Rate 72 /min BMI (Body Mass Index) 27.5 kg/m2 07/19/2013 12:10pm Height 55 inches 4'7" Weight 155.00 lb Heart Rate 72 /min BMI (Body Mass Index) 36.0 kg/m2 Results Test Date Facility Test Result H/L Range Note CBC Auto Diff 06/09/2018 [facility] White Blood 5.9 10^3/uL N 3.5-10.[address] [place] [address] [phone] Red Blood Count 4.63 10^6/uL N 4.00-5.40 Hemoglobin 13.7 g/dL N 12.0-16.0 Hematocrit 41 % N 35-47 Mean Corpuscular Volume 89 fL N 80-97 Mean Corpuscular Hemoglobin 30 pg N 27-31 Mean Corpuscular HGB Conc 33 g/dL N 31-36 Red Cell Distribution Width 14 % N 10.5-15 Platelet Count 359 10^3/uL N 150-450 Mean Platelet Volume 8.1 fL N 7.4-10.4 Abs Neutrophils 4.0 10^3/uL N 1.5-7.7 Abs Lymphocytes 1.0 10^3/uL N 1.0-4.8 Abs Monocytes 0.5 10^3/uL N 0-0.8 Abs Eosinophils 0.4 10^3/uL N 0-0.6 Abs Basophils 0.1 10^3/uL N 0-0.2 Abs Nucleated RBC 0 10^3/uL Granulocyte % 67.6 % Lymphocyte % 16.8 % Monocyte % 8.3 % Eosinophil % 6.2 % Basophil % 1.1 % Nucleated Red Blood Cells % 0.1 Vitamin B12 And 06/09/2018 [facility] Vitamin B12 499 pg/mL N 180-914 1 Folate Serum [address] [email or web address] [address] [phone] Folic Acid (Folate) 16.69 ng/mL >3.99 Laboratory test 06/09/2018 [facility] Vitamin D Total 29.7 ng/ mL N 20-50 finding 101 [facility] [address] [place] [address] [phone] Laboratory test 05/18/2018 [facility] Surgical SEE RESULT 2 finding 101 [facility] [place] [place] [address] [phone] Comp Metabolic 04/25/2018 [facility] Sodium 141 mmol/L N 135- 145 3 Panel [address] [place] [address] [phone] Potassium 4.0 mmol/L N 3.5-5.0 Chloride 104 mmol/L N 101-111 Co2 Carbon Dioxide 30 mmol/L N 22-32 Anion Gap 7 mmol/L N 2-11 Glucose 105 mg/dL High 70-100 Blood Urea Nitrogen 18 mg/dL N 6-24 Creatinine 1.14 mg/dL High 0.51-0.95 BUN/Creatinine Ratio 15.8 N 8-20 Calcium 10.1 mg/dL N 8.6-10.3 Total Protein 6.7 g/dL N 6.4-8.9 Albumin 4.5 g/dL N 3.2-5.2 Globulin 2.2 g/dL N 2-4 Albumin/Globulin Ratio 2.0 N 1-3 Total Bilirubin 0.50 mg/dL N 0.2-1.0 Alkaline Phosphatase 128 U/L High 34-104 Alt 30 U/L N 7-52 Ast 26 U/L N 13-39 Egfr Non- 47.0 >60 Egfr 56.9 >60 4 Lipid Profile 04/25/2018 [facility] Triglycerides 102 mg/dL 5 (Trig/Chol/HDL) [address] [place] [address] [phone] Cholesterol 163 mg/dL 6 HDL Cholesterol 66.4 mg/dL 7 LDL Cholesterol 76 mg/dL 8 Urine Culture And 01/02/2018 [facility] Urine Culture SEE RESULT [address] [place] [address] [phone] Urinalysis Profile 01/02/2018 [facility] Urine Color [place] [address] [place] [address] [phone] Urine Appearance Cloudy Urine Specific [place] 1.024 N 1.010-1.030 Urine pH 5.0 N 5-9 Urine Urobilinogen Negative Negative Urine Ketones Negative Negative Urine Protein 2+(100 mg/dL) Abnormal Negative Urine Leukocytes 3+ Abnormal Negative Urine Blood 3+ Abnormal Negative Urine Nitrite Negative Negative Urine Bilirubin Negative Negative Urine Glucose Negative Negative Urine White Blood Cell 3+(>20/hpf) Abnormal Absent Urine Red Blood Cell 3+(>10/hpf) Abnormal Absent Urine Bacteria Absent Absent Laboratory test 01/02/2018 [facility] Magnesium 2.1 mg/dL N 1.9-2.7 finding [address] [place] [address] [phone] C Reactive Protein < 1.00 mg/L N <8.01 Comp Metabolic Panel 01/02/2018 [facility] Sodium 138 mmol/L N 135-145 [address] [place] [address] [phone] Potassium 3.3 mmol/L Low 3.5-5.0 Chloride 103 mmol/L N 101-111 Co2 Carbon Dioxide 30 mmol/L N 22-32 Anion Gap 5 mmol/L N 2-11 Glucose 110 mg/dL High 70-100 Blood Urea Nitrogen 19 mg/dL N 6-24 Creatinine 1.30 mg/dL High 0.51-0.95 BUN/Creatinine Ratio 14.6 N 8-20 Calcium 9.0 mg/dL N 8.6-10.3 Total Protein 6.3 g/dL Low 6.4-8.9 Albumin 4.0 g/dL N 3.2-5.2 Globulin 2.3 g/dL N 2-4 Albumin/Globulin Ratio 1.7 N 1-3 Total Bilirubin 0.40 mg/dL N 0.2-1.0 Alkaline Phosphatase 108 U/L High 34-104 Alt 59 U/L High 7-52 Ast 40 U/L High 13-39 Egfr Non- 40.4 >60 Egfr 48.9 >60 10 CBC Auto Diff 01/02/2018 [facility] White Blood 8.5 10^3/uL N 3.5-10.[address] [place] [address] [phone] Red Blood Count 3.90 10^6/uL Low 4.00-5.40 Hemoglobin 12.1 g/dL N 12.0-16.0 Hematocrit 36 % N 35-47 Mean Corpuscular Volume 93 fL N 80-97 Mean Corpuscular Hemoglobin 31 pg N 27-31 Mean Corpuscular HGB Conc 33 g/dL N 31-36 Red Cell Distribution Width 13 % N 10.5-15 Platelet Count 262 10^3/uL N 150-450 Mean Platelet Volume 7.6 um3 N 7.4-10.4 Abs Neutrophils 6.5 10^3/uL N 1.5-7.7 Abs Lymphocytes 1.2 10^3/uL N 1.0-4.8 Abs Monocytes 0.6 10^3/uL N 0-0.8 Abs Eosinophils 0.2 10^3/uL N 0-0.6 Abs Basophils 0.1 10^3/uL N 0-0.2 Abs Nucleated RBC 0 10^3/uL Granulocyte % 76.4 % N 38-83 Lymphocyte % 14.1 % Low 25-47 Monocyte % 7.0 % N 0-7 Eosinophil % 1.8 % N 0-6 Basophil % 0.7 % N 0-2 Nucleated Red Blood Cells % 0 Urine Culture And 06/07/2017 [facility] Urine Culture SEE RESULT [address] [place] [place], [place] [id number] [phone] Urinalysis Profile 06/07/2017 [facility] Urine Color [place] [address] [place], [place] [id number] [phone] Urine Appearance Cloudy Urine Specific [place] 1.034 High 1.010-1.030 Urine pH 5.0 N 5-9 Urine Urobilinogen Positive Abnormal Negative Urine Ketones Trace Abnormal Negative Urine Protein 2+(100 mg/dL) Abnormal Negative Urine Leukocytes 2+ Abnormal Negative Urine Blood Negative Negative Urine Nitrite Negative Negative Urine Bilirubin 2+ Abnormal Negative Urine Glucose Negative Negative Urine White Blood Cell 3+(>20/hpf) Abnormal Absent Urine Red Blood Cell Absent Absent Urine Bacteria Absent Absent Urine Squamous Epithelial Cell Present Abnormal Absent Urine Hyaline Casts Present Abnormal Absent Urine Calcium Oxalate Cryst Present Abnormal Absent Laboratory test 06/07/2017 [facility] Surgical SEE RESULT [address] [place] [address] [phone] Urine Culture And 2017 [facility] Urine Culture SEE RESULT [address] [place], [place] [address] [phone] Urinalysis Profile 2017 [facility] Urine Color Straw [address] [place] [address] [phone] Urine Appearance Clear Urine Specific [place] 1.005 Low 1.010-1.030 Urine pH 7.0 N 5-9 Urine Urobilinogen Negative Negative Urine Ketones Negative Negative Urine Protein Negative Negative Urine Leukocytes 2+ Abnormal Negative Urine Blood 1+ Abnormal Negative Urine Nitrite Negative Negative Urine Bilirubin Negative Negative Urine Glucose Negative Negative Urine White Blood Cell 2+(11-20/hpf) Abnormal Absent Urine Red Blood Cell Trace(0-2/hpf) Absent Urine Bacteria Absent Absent Urine Squamous Epithelial Cell Present Abnormal Absent Laboratory test 2017 [facility] Partial 32.3 seconds N 26.0-36.[address] [place] [address] PTT [phone] Inr/Protime 2017 [facility] Inr 0.93 N 0.77-1.[address] [place], [place] [address] [phone] Laboratory test 2017 [facility] Magnesium 2.1 mg/dL N 1.9-2.[address] [place] [address] [phone] Amylase 47 U/L N 29-103 C Reactive Protein 1.92 mg/L N < 5.00 14 Comp Metabolic Panel 2017 [facility] Sodium 137 mmol/L N 133-[address] [place] [address] [phone] Potassium 3.4 mmol/L Low 3.5-5.0 Chloride 101 mmol/L N 101-111 Co2 Carbon Dioxide 29 mmol/L N 22-32 Anion Gap 7 mmol/L N 2-11 Glucose 115 mg/dL High 70-100 Blood Urea Nitrogen 14 mg/dL N 6-24 Creatinine 1.17 mg/dL High 0.51-0.95 BUN/Creatinine Ratio 12.0 N 8-20 Calcium 9.9 mg/dL N 8.6-10.3 Total Protein 7.0 g/dL N 6.4-8.9 Albumin 4.4 g/dL N 3.2-5.2 Globulin 2.6 g/dL N 2-4 Albumin/Globulin Ratio 1.7 N 1-3 Total Bilirubin 0.40 mg/dL N 0.2-1.0 Alkaline Phosphatase 110 U/L High 34-104 Alt 31 U/L N 7-52 Ast 23 U/L N 13-39 Egfr Non- 45.6 >60 Egfr 58.6 >60 15 CBC Auto Diff 2017 [facility] White Blood 5.9 10^3/uL N 3.5-10.[address] [place] [address] [phone] Red Blood Count 4.53 10^6/uL N 4.0-5.4 Hemoglobin 13.3 g/dL N 12.0-16.0 Hematocrit 41 % N 35-47 Mean Corpuscular Volume 90 fL N 80-97 Mean Corpuscular Hemoglobin 29 pg N 27-31 Mean Corpuscular HGB Conc 33 g/dL N 31-36 Red Cell Distribution Width 17 % High 10.5-15 Platelet Count 216 10^3/uL N 150-450 Mean Platelet Volume 8 um3 N 7.4-10.4 Abs Neutrophils 4.3 10^3/uL N 1.5-7.7 Abs Lymphocytes 0.9 10^3/uL Low 1.0-4.8 Abs Monocytes 0.5 10^3/uL N 0-0.8 Abs Eosinophils 0.1 10^3/uL N 0-0.6 Abs Basophils 0 10^3/uL N 0-0.2 Abs Nucleated RBC 0 10^3/uL Granulocyte % 73.0 % N 38-83 Lymphocyte % 16.0 % Low 25-47 Monocyte % 8.3 % N 1-9 Eosinophil % 2.4 % N 0-6 Basophil % 0.3 % N 0-2 Nucleated Red Blood Cells % 0 Urinalysis Profile 05/09/2017 [facility] Urine Color Red Abnormal [address] [place] [address] [phone] Urine Appearance (SEE NOTE) 16 Urine Specific [place] 1.024 N 1.010-1.030 Urine pH (SEE NOTE) 5-9 17 Urine Urobilinogen (SEE NOTE) Negative 18 Urine Ketones (SEE NOTE) Negative 19 Urine Protein (SEE NOTE) Negative 20 Urine Leukocytes (SEE NOTE) Negative 21 Urine Blood (SEE NOTE) Negative 22 * (SEE NOTE) Negative 23 Urine Nitrite (SEE NOTE) Negative 24 Urine Bilirubin (SEE NOTE) Negative 25 Urine Glucose (SEE NOTE) Negative 26 Urine White Blood Cell 3+(>20/hpf) Abnormal Absent Urine Red Blood Cell 3+(>10/hpf) Abnormal Absent Urine Bacteria 1+ Abnormal Absent Urine Culture And 05/09/2017 [facility] Urine Culture SEE RESULT [address] [place] [address] [phone] Occult Blood,Stool 04/12/2017 [facility] Occult Blood - pos x2, neg (3 Spec) Stool x1 Lipid Profile 04/01/2017 [facility] [facility] Tr[facility] 76 mg/dL N 28 (Trig/Chol/HDL) [address] [place] [address] [phone] Cholesterol 140 mg/dL N 29 HDL Cholesterol 62.2 mg/dL N 30 LDL Cholesterol 63 mg/dL N 31 Amitriptyline Level 04/01/2017 [facility] Amitriptyline 42 ng/ mL N [address] [place] [address] [phone] Nortriptyline <20 ng/mL Abnormal 70-170 Amitriptyline+Nortriptyline See Comment ng/mL N 80-200 33 CBC Auto Diff 04/01/2017 [facility] White Blood 5.1 10^3/uL N 3.5-10.[address] [place] [address] [phone] Red Blood Count 3.95 10^6/uL Low 4.0-5.4 Hemoglobin 11.1 g/dL Low 12.0-16.0 Hematocrit 34 % Low 35-47 Mean Corpuscular Volume 85 fL N 80-97 Mean Corpuscular Hemoglobin 28 pg N 27-31 Mean Corpuscular HGB Conc 33 g/dL N 31-36 Red Cell Distribution Width 14 % N 10.5-15 Platelet Count 287 10^3/uL N 150-450 Mean Platelet Volume 9 um3 N 7.4-10.4 Abs Neutrophils 3.7 10^3/uL N 1.5-7.7 Abs Lymphocytes 0.9 10^3/uL Low 1.0-4.8 Abs Monocytes 0.3 10^3/uL N 0-0.8 Abs Eosinophils 0.1 10^3/uL N 0-0.6 Abs Basophils 0 10^3/uL N 0-0.2 Abs Nucleated RBC 0 10^3/uL N Granulocyte % 73.5 % N 38-83 Lymphocyte % 18.3 % Low 25-47 Monocyte % 5.8 % N 1-9 Eosinophil % 2.1 % N 0-6 Basophil % 0.3 % N 0-2 Nucleated Red Blood Cells % 0 N Comp Metabolic Panel 04/01/2017 [facility] Sodium 136 mmol/L N 133-[address] [place] [address] [phone] Potassium 4.1 mmol/L N 3.5-5.0 Chloride 100 mmol/L Low 101-111 Co2 Carbon Dioxide 31 mmol/L N 22-32 Anion Gap 5 mmol/L N 2-11 Glucose 93 mg/dL N 70-100 Blood Urea Nitrogen 18 mg/dL N 6-24 Creatinine 1.21 mg/dL High 0.51-0.95 BUN/Creatinine Ratio 14.9 N 8-20 Calcium 9.5 mg/dL N 8.6-10.3 Total Protein 6.3 g/dL Low 6.4-8.9 Albumin 4.0 g/dL N 3.2-5.2 Globulin 2.3 g/dL N 2-4 Albumin/Globulin Ratio 1.7 N 1-3 Total Bilirubin 0.50 mg/dL N 0.2-1.0 Alkaline Phosphatase 113 U/L High 34-104 Alt 34 U/L N 7-52 Ast 36 U/L N 13-39 Egfr Non- 44.0 N >60 Egfr 56.6 N >60 34 Iron & Iron Binding 04/01/2017 [facility] Iron 49 g/dL Low 50-212 [address]acity [address] [place] [address] [phone] Unsaturated Iron Binding 462 g/dL N Total Iron Binding Capacity 511 g/dL High 250-450 % Iron Saturation 10 % Low 15-55 Laboratory test 04/01/2017 [facility] Ferritin < 10.0 ng/mL Low 11-307 finding [address] [place] [address] [phone] Folic Acid (Folate) 14.23 ng/mL N >3.99 Vitamin B12 690 pg/mL N 180-919 35 Vitamin D Total 25(Oh) 30.1 ng/mL N 20-50 Vitamin E Level 8.2 mg/L N 5.5 - 17.0 36 Vitamin B1 (Whole Blood) 181 nmol/L Abnormal 70-180 37 Basic Metabolic Panel 02/09/2017 [facility] Sodium 140 mmol/L N 133-145 [address] [place] [address] [phone] Potassium 3.7 mmol/L N 3.5-5.0 Chloride 101 mmol/L N 101-111 Co2 Carbon Dioxide 34 mmol/L High 22-32 Anion Gap 5 mmol/L N 2-11 Glucose 103 mg/dL High 70-100 Blood Urea Nitrogen 16 mg/dL N 6-24 Creatinine 1.26 mg/dL High 0.51-0.95 BUN/Creatinine Ratio 12.7 N 8-20 Calcium 9.7 mg/dL N 8.6-10.3 Egfr Non- 42.0 N >60 Egfr 54.0 N >60 38 Bariatric Panel 03/31/2016 [facility] Vitamin B12 200 pg/mL N 180-914 39 Post Op [address] [place] [address] [phone] Folic Acid (Folate) 8.92 ng/mL N >3.99 Vitamin B1 (Whole Blood) 166 nmol/L N 70-180 40 Vitamin E Level 8.6 mg/L N 5.5 - 17.0 41 Comp Metabolic Panel 03/31/2016 [facility] Sodium 138 mmol/L N 133-[address] [place] [address] [phone] Potassium 4.0 mmol/L N 3.5-5.0 Chloride 103 mmol/L N 101-111 Co2 Carbon Dioxide 30 mmol/L N 22-32 Anion Gap 5 mmol/L N 2-11 Glucose 96 mg/dL N 70-100 Blood Urea Nitrogen 15 mg/dL N 6-24 Creatinine 1.24 mg/dL High 0.51-0.95 BUN/Creatinine Ratio 12.1 N 8-20 Calcium 9.4 mg/dL N 8.6-10.3 Total Protein 6.3 g/dL Low 6.4-8.9 Albumin 4.1 g/dL N 3.2-5.2 Globulin 2.2 g/dL N 2-4 Albumin/Globulin Ratio 1.9 N 1-3 Total Bilirubin 0.40 mg/dL N 0.2-1.0 Alkaline Phosphatase 122 U/L High 34-104 Alt 21 U/L N 7-52 Ast 25 U/L N 13-39 Egfr Non- 42.9 N >60 Egfr 55.2 N >60 42 Iron & Iron 03/31/2016 [facility] Total Iron 475 g/dL High 250-[address] [place] [address] [phone] Iron 104 g/dL N 50-212 Unsaturated Iron Binding 371 g/dL N % Iron Saturation 22 % N 15-55 CBC Auto Diff 03/31/2016 [facility] White Blood 4.3 10^3/uL N 3.5-10.[address] [place] [address] [phone] Red Blood Count 4.09 10^6/uL N 4.0-5.4 Hemoglobin 12.0 g/dL N 12.0-16.0 Hematocrit 37 % N 35-47 Mean Corpuscular Volume 90 fL N 80-97 Mean Corpuscular Hemoglobin 29 pg N 27-31 Mean Corpuscular HGB Conc 33 g/dL N 31-36 Red Cell Distribution Width 13 % N 10.5-15 Platelet Count 240 10^3/uL N 150-450 Mean Platelet Volume 9 um3 N 7.4-10.4 Abs Neutrophils 3.0 10^3/uL N 1.5-7.7 Abs Lymphocytes 0.8 10^3/uL Low 1.0-4.8 Abs Monocytes 0.3 10^3/uL N 0-0.8 Abs Eosinophils 0.2 10^3/uL N 0-0.6 Abs Basophils 0 10^3/uL N 0-0.2 Abs Nucleated RBC 0 10^3/uL N Granulocyte % 69.7 % N 38-83 Lymphocyte % 19.3 % Low 25-47 Monocyte % 6.3 % N 1-9 Eosinophil % 4.0 % N 0-6 Basophil % 0.7 % N 0-2 Nucleated Red Blood Cells % 0 N Lipid Profile 09/02/2015 [facility] Triglycerides 114 mg/dL N 43 (Trig/Chol/HDL) [address] [place] [address] [phone] Cholesterol 198 mg/dL N 44 HDL Cholesterol 50.8 mg/dL N 45 LDL Cholesterol 124 mg/dL N 46 Comp Metabolic Panel 09/02/2015 [facility] Sodium 139 mmol/L N 133-145 [address] [place] [address] [phone] Potassium 3.1 mmol/L Low 3.5-5.0 Chloride 101 mmol/L N 101-111 Co2 Carbon Dioxide 29 mmol/L N 22-32 Anion Gap 9 mmol/L N 2-11 Glucose 105 mg/dL High 70-100 Blood Urea Nitrogen 21 mg/dL N 6-24 Creatinine 1.49 mg/dL High 0.51-0.95 BUN/Creatinine Ratio 14.1 N 8-20 Calcium 9.5 mg/dL N 8.6-10.3 Total Protein 6.2 g/dL Low 6.4-8.9 Albumin 4.1 g/dL N 3.2-5.2 Globulin 2.1 g/dL N 2-4 Albumin/Globulin Ratio 2.0 N 1-3 Total Bilirubin 0.40 mg/dL N 0.2-1.0 Alkaline Phosphatase 95 U/L N 34-104 Alt 20 U/L N 7-52 Ast 23 U/L N 13-39 Egfr Non- 34.7 N >60 Egfr 44.6 N >60 47 Laboratory test 10/10/2014 [facility] C Reactive < 1.00 N < 5.00 [address] Protein mg/[place] [address] [phone] TSH (Thyroid Stimulating Horm) 3.56 ?IU/mL N 0.34-5.60 Lyme Disease Serology Negative N Negative 49 Comp Metabolic Panel 10/10/2014 [facility] Sodium 135 mmol/L N 133-[address] [place] [address] [phone] Potassium 3.1 mmol/L Low 3.5-5.0 Chloride 91 mmol/L Low 101-111 Co2 Carbon Dioxide 35 mmol/L High 22-32 Anion Gap 9 mmol/L N 2-11 Glucose 98 mg/dL N 70-100 Blood Urea Nitrogen 33 mg/dL High 6-24 Creatinine 1.41 mg/dL High 0.51-0.95 BUN/Creatinine Ratio 23.4 High 8-20 Calcium 10.1 mg/dL N 8.6-10.3 Total Protein 6.9 g/dL N 6.4-8.9 Albumin 4.8 g/dL N 3.2-5.2 Globulin 2.1 g/dL N 2-4 Albumin/Globulin Ratio 2.3 N 1-3 Total Bilirubin 0.50 mg/dL N 0.2-1.0 Alkaline Phosphatase 116 U/L High 34-104 Alt 30 U/L N 7-52 Ast 38 U/L N 13-39 Egfr Non- 37.1 N >60 Egfr 47.7 N >60 50 CBC Auto Diff 10/10/2014 [facility] White Blood 6.5 10^3/uL N 4.8-10.[address] [place] [address] [phone] Red Blood Count 4.68 10^6/uL N 4.0-5.4 Hemoglobin 14.9 g/dL N 12.0-16.0 Hematocrit 43 % N 35-47 Mean Corpuscular Volume 91 fL N 80-97 Mean Corpuscular Hemoglobin 32 pg High 27-31 Mean Corpuscular HGB Conc 35 g/dL N 31-36 Red Cell Distribution Width 13 % N 10.5-15 Platelet Count 325 10^3/uL N 150-450 Mean Platelet Volume 8 um3 N 7.4-10.4 Abs Neutrophils 4.8 10^3/uL N 1.5-7.7 Abs Lymphocytes 1.0 10^3/uL N 1.0-4.8 Abs Monocytes 0.4 10^3/uL N 0-0.8 Abs Eosinophils 0.1 10^3/uL N 0-0.6 Abs Basophils 0.1 10^3/uL N 0-0.2 Abs Nucleated RBC 0 10^3/uL N Granulocyte % 74.3 % N 38-83 Lymphocyte % 16.1 % Low 25-47 Monocyte % 6.7 % N 1-9 Eosinophil % 1.9 % N 0-6 Basophil % 1.0 % N 0-2 Nucleated Red Blood Cells % 0 N Lipid Profile 08/22/2014 [facility] Triglycerides 91 mg/dL N 51 (Trig/Chol/HDL) [address] [place] [address] [phone] Cholesterol 201 mg/dL N 52 HDL Cholesterol 58.4 mg/dL N 53 LDL Cholesterol 124 mg/dL N 54 Laboratory test 08/22/2014 [facility] Ast 27 U/L N 13-39 [address] [place] [address] [phone] CBC Auto Diff 02/15/2014 [facility] White Blood 4.3 Low 4.8- 10.[address] Count 10^3/uL [place], [place] [id number] [phone] Red Blood Count 4.03 10^6/uL N 4.0-5.4 Hemoglobin 12.5 g/dL N 12.0-16.0 Hematocrit 37 % N 35-47 Mean Corpuscular Volume 92 fL N 80-97 Mean Corpuscular Hemoglobin 31 pg N 27-31 Mean Corpuscular HGB Conc 34 g/dL N 31-36 Red Cell Distribution Width 13 % N 10.5-15 Platelet Count 246 10^3/uL N 150-450 Mean Platelet Volume 8 um3 N 7.4-10.4 Abs Neutrophils 2.9 10^3/uL N 1.5-7.7 Abs Lymphocytes 0.9 10^3/uL Low 1.0-4.8 Abs Monocytes 0.3 10^3/uL N 0-0.8 Abs Eosinophils 0.1 10^3/uL N 0-0.6 Abs Basophils 0 10^3/uL N 0-0.2 Abs Nucleated RBC 0 10^3/uL N Granulocyte % 67.1 % N 38-83 Lymphocyte % 21.9 % Low 25-47 Monocyte % 7.1 % N 1-9 Eosinophil % 3.4 % N 0-6 Basophil % 0.5 % N 0-2 Nucleated Red Blood Cells % 0.1 N Comp Metabolic Panel 02/15/2014 [facility] Sodium 139 mmol/L N 133-145 [address] [place] [address] [phone] Potassium 3.8 mmol/L N 3.7-5.6 Chloride 105 mmol/L N 101-111 Co2 Carbon Dioxide 31 mmol/L N 22-32 Anion Gap 3 mmol/L N 2-11 Glucose 106 mg/dL High 70-100 Blood Urea Nitrogen 16 mg/dL N 6-24 Creatinine 1.21 mg/dL High 0.51-0.95 BUN/Creatinine Ratio 13.2 N 8-20 Calcium 9.4 mg/dL N 8.6-10.3 Total Protein 6.7 g/dL N 6.4-8.9 Albumin 4.2 g/dL N 3.2-5.2 Globulin 2.5 g/dL N 2-4 Albumin/Globulin Ratio 1.7 N 1-3 Total Bilirubin 0.40 mg/dL N 0.2-1.0 Alkaline Phosphatase 115 U/L High 34-104 Alt 36 U/L N 7-52 Ast 37 U/L N 13-39 Egfr Non- 44.4 N >60 Egfr 57.1 N >60 57 Iron & Iron Binding 02/15/2014 [facility] Iron 90 g/dL N 50- 212 [address] [place] [address] [phone] Unsaturated Iron Binding 285 g/dL N Total Iron Binding Capacity 375 g/dL N 250-450 % Iron Saturation 24 % N 15-55 Laboratory test 02/15/2014 [facility] Ferritin 34.5 ng/mL N 11 -307 58 finding [address] [place] [address] [phone] Vitamin B12 322 pg/mL N 180-914 59 Folate 16.74 ng/mL N >3.99 60 Vitamin D, 25 02/15/2014 [facility] 25-Hydroxy Vitamin <4.0 ng/ mL N Hydroxy [address] [place] [address] [phone] 25-Hydroxy Vitamin D3 34 ng/mL N 25-Hydroxy Vitamin D Total 34 ng/mL N 61 Laboratory test 02/15/2014 [facility] Vitamin B1 197 nmol/L Abnormal 70-180 [address] [place] [address] [phone] Vitamin E Level 8.5 mg/L N 5.5 - 17.0 63 Surgical 10/18/2013 [facility] S RUN DATE: [address] [place] [address] NOTE> [phone] CBC Auto Diff 10/06/2013 [facility] White Blood 4.4 10^3/uL Low 4.8-[address] Count .8 [place] [address] [phone] Red Blood Count 4.17 10^6/uL N 4.0-5.4 Hemoglobin 13.0 g/dL N 12.0-16.0 Hematocrit 39 % N 35-47 Mean Corpuscular Volume 92 fL N 80-97 Mean Corpuscular Hemoglobin 31 pg N 27-31 Mean Corpuscular HGB Conc 34 g/dL N 31-36 Red Cell Distribution Width 13 % N 10.5-15 Platelet Count 232 10^3/uL N 150-450 Mean Platelet Volume 8 um3 N 7.4-10.4 Abs Neutrophils 2.8 10^3/uL N 1.5-7.7 Abs Lymphocytes 1.1 10^3/uL N 1.0-4.8 Abs Monocytes 0.3 10^3/uL N 0-0.8 Abs Eosinophils 0.1 10^3/uL N 0-0.6 Abs Basophils 0 10^3/uL N 0-0.2 Abs Nucleated RBC 0 10^3/uL N Granulocyte % 64.6 % N 38-83 Lymphocyte % 24.8 % Low 25-47 Monocyte % 7.1 % N 1-9 Eosinophil % 3.1 % N 0-6 Basophil % 0.4 % N 0-2 Nucleated Red Blood Cells % 0 N Lipid Profile 09/12/2013 [facility] Triglycerides 66 mg/dL N 65, 66 (Trig/Chol/HDL) [address] [place] [address] [phone] Cholesterol 122 mg/dL N 67 HDL Cholesterol 46.6 mg/dL N 68 LDL Cholesterol 62 mg/dL N 69 Comp Metabolic Panel 09/12/2013 [facility] Sodium 140 mmol/L N 133-[address] [place] [address] [phone] Potassium 3.9 mmol/L N 3.7-5.6 Chloride 104 mmol/L N 101-111 Co2 Carbon Dioxide 32 mmol/L N 22-32 Anion Gap 4 mmol/L N 2-11 Glucose 104 mg/dL High 70-100 Blood Urea Nitrogen 21 mg/dL N 6-24 Creatinine 1.12 mg/dL High 0.51-0.95 BUN/Creatinine Ratio 18.8 N 8-20 Calcium 9.5 mg/dL N 8.6-10.3 Total Protein 6.3 g/dL Low 6.4-8.9 Albumin 4.6 g/dL N 3.2-5.2 Globulin 1.7 g/dL Low 2-4 Albumin/Globulin Ratio 2.7 N 1-3 Total Bilirubin 0.50 mg/dL N 0.2-1.0 Alkaline Phosphatase 93 U/L N 34-104 Alt 48 U/L N 7-52 Ast 43 U/L High 13-39 Egfr Non- 48.5 N >60 Egfr 62.4 N >60 70 CBC Auto 02/10/2013 [facility] White Blood 3.5 10^3/uL Low 4.8 -10.[address] [place] [address] [phone] Red Blood Count 3.79 10^6/uL Low 4.0-5.4 Hemoglobin 12.2 g/dL 12.0-16.0 Hematocrit 36 % 35-47 Mean Corpuscular Volume 94 fL 80-97 Mean Corpuscular Hemoglobin 32 pg High 27-31 Mean Corpuscular HGB Conc 34 g/dL 31-36 Red Cell Distribution Width 13 % 10.5-15 Platelet Count 201 10^3/uL 150-450 Mean Platelet Volume 8 um3 7.4-10.4 Abs Neutrophils 2.3 10^3/uL 1.5-7.7 Abs Lymphocytes 0.9 10^3/uL Low 1.0-4.8 Abs Monocytes 0.2 10^3/uL 0-0.8 Abs Eosinophils 0.1 10^3/uL 0-0.6 Abs Basophils 0 10^3/uL 0-0.2 Abs Nucleated RBC 0 10^3/uL Granulocyte % 65.2 % 38-83 Lymphocyte % 24.2 % Low 25-47 Monocyte % 6.4 % 1-9 Eosinophil % 3.6 % 0-6 Basophil % 0.6 % 0-2 Nucleated Red Blood Cells % 0.1 Comp Metabolic Panel 02/10/2013 [facility] Sodium 141 mmol/L 133-145 [address] [place] [address] [phone] Potassium 4.0 mmol/L 3.5-5.0 Chloride 106 mmol/L 101-111 Co2 Carbon Dioxide 30.0 mmol/L 22-32 Anion Gap 5.0 mmol/L 2-11 Glucose 109 mg/dL High 70-100 Blood Urea Nitrogen 14 mg/dL 6-24 Creatinine 1.10 mg/dL 0.50-1.40 BUN/Creatinine Ratio 12.7 8-20 Calcium 9.5 mg/dL 8.1-9.9 Total Protein 5.5 g/dL Low 6.2-8.1 Albumin 3.9 g/dL 3.2-5.2 Globulin 1.6 g/dL Low 2-4 Albumin/Globulin Ratio 2.4 1-3 Total Bilirubin 0.7 mg/dL 0.4-1.5 Alkaline Phosphatase 89 U/L 30-110 Alt 54 U/L 14-54 Ast 52 U/L High 12-42 Egfr Non- 49.7 >60 Egfr 63.9 >60 72 Iron & Iron Binding 02/10/2013 [facility] Iron 136 g/dL 28- 170 Capacity [address] [place] [address] [phone] Unsaturated Iron Binding 199 g/dL Total Iron Binding Capacity 335 g/dL 250-450 % Iron Saturation 41 % 15-55 Laboratory test 02/10/2013 [facility] Ferritin 55 ng/mL 11- 307 [address] [place] [address] [phone] Vitamin B12 446 pg/mL 180-914 74 Folate 11.7 ng/mL 2-16 75 Vitamin D, 25 02/10/2013 [facility] 25-Hydroxy Vitamin <4.0 ng/ mL Hydroxy [address] [place] [address] [phone] 25-Hydroxy Vitamin D3 31 ng/mL 25-Hydroxy Vitamin D Total 31 ng/mL 76 Laboratory test 02/10/2013 [facility] Vitamin B1 213 nmol/L Abnormal 70-[address] [place] [address] [phone] Vitamin E Level 8.1 mg/L 5.5 - 17.0 78 Laboratory test 10/08/2012 [facility] Vitamin B12 1026 pg/mL High 180-[address] [place] [address] [phone] TSH (Thyroid Stimulating Horm) 3.67 miu/mL 0.34-5.60 80 Lipid Profile 10/08/2012 [facility] Triglycerides 76 mg/dL 40 -200 (Trig/Chol/HDL) [address] [place] [address] [phone] Cholesterol 135 mg/dL Less than 200 HDL Cholesterol 49 mg/dL 40-60 81 Cholesterol/HDL Ratio 2.8 Average 1-4.44 LDL Cholesterol 70.8 mg/dL Less Than 100 82 Comp Metabolic Panel 10/08/2012 [facility] Sodium 142 mmol/L 133-[address] [place] [address] [phone] Potassium 4.3 mmol/L 3.5-5.0 Chloride 105 mmol/L 101-111 Co2 Carbon Dioxide 34.0 mmol/L High 22-32 Anion Gap 3.0 mmol/L 2-11 Glucose 98 mg/dL 70-100 Blood Urea Nitrogen 16 mg/dL 6-24 Creatinine 1.20 mg/dL 0.50-1.40 BUN/Creatinine Ratio 13.3 8-20 Calcium 9.8 mg/dL 8.1-9.9 Total Protein 6.0 g/dL Low 6.2-8.1 Albumin 4.0 g/dL 3.2-5.2 Globulin 2.0 g/dL 2-4 Albumin/Globulin Ratio 2.0 1-3 Total Bilirubin 0.5 mg/dL 0.4-1.5 Alkaline Phosphatase 87 U/L 30-110 Alt 48 U/L 14-54 Ast 51 U/L High 12-42 Egfr Non- 44.9 >60 Egfr 57.8 >60 83 CBC Auto 10/08/2012 [facility] White Blood 4.6 10^3/uL Low 4.8 -10.[address] Count [place], [place] [address] [phone] Red Blood Count 4.06 10^6/uL 4.0-5.4 Hemoglobin 12.6 g/dL 12.0-16.0 Hematocrit 39 % 35-47 Mean Corpuscular Volume 96 fL 80-97 Mean Corpuscular Hemoglobin 31 pg 27-31 Mean Corpuscular HGB Conc 33 g/dL 31-36 Red Cell Distribution Width 13 % 10.5-15 Platelet Count 226 10^3/uL 150-450 Mean Platelet Volume 9 um3 7.4-10.4 Abs Neutrophils 2.8 10^3/uL 1.5-7.7 Abs Lymphocytes 1.3 10^3/uL 1.0-4.8 Abs Monocytes 0.3 10^3/uL 0-0.8 Abs Eosinophils 0.2 10^3/uL 0-0.6 Abs Basophils 0 10^3/uL 0-0.2 Abs Nucleated RBC 0 10^3/uL Granulocyte % 61.0 % 38-83 Lymphocyte % 27.5 % 25-47 Monocyte % 7.0 % 1-9 Eosinophil % 4.0 % 0-6 Basophil % 0.5 % 0-2 Nucleated Red Blood Cells % 0 1 Normal Range 180 to 914 Indeterminate Range 145 to 180 Deficient Range <145 2 SEE RESULT BELOW Name: CARLYLE GIANG : [address]: Nghia Weber MD Acct: [id number] Unit: [id number] AGE: 72 Location: [place] [address] Re05/18/18 SEX: F Status: ADM Barbara SPEC: [id number] ORION: 05/18/18- SUBM DR: Nghia Weber MD REQ: [id number] RECD: 05/18/18 STATUS: SOUT _ ORDERED: LEVEL 2 FINAL DIAGNOSIS Inguinal region, herniorrhaphy: -- Hernia sac PRE-OPERATIVE DIAGNOSIS Ventral hernia. GROSS DESCRIPTION The specimen is received in formalin labeled, Ventral Hernia Sac, and consists of three ji-red irregular to semi-saccular wrinkled rubbery fibromembranous tissue fragments admixed with scant yellow adipose tissue aggregating 10.3 by up to 2.3 x 0.6 cm. Timber Girdler sections, one cassette. Signed by and Reported on: Shin Schmidt MD [id number] END OF REPORT DEPARTMENT OF PATHOLOGY, [address] [place] [address] Shin Schmidt M.D. Director [facility] # [id number] FASTING 4 Because ethnic data is not always readily available, this report includes an eGFR for both -Americans and non- Americans. The National Kidney Disease Education Program (NKDEP) does not endorse the use of the MDRD equation for patients that are not between the ages of 18 and 70, are , have extremes of body size, muscle mass, or nutritional status, or are non- or non-. According to the National Kidney Foundation, irrespective of diagnosis, the stage of the disease is based on the level of kidney function: Stage Description GFR(mL/min/1.73 m(2)) 1 Kidney damage with normal or decreased GFR 90 2 Kidney damage with mild decrease in GFR 60-89 3 Moderate decrease in GFR 30-59 4 Severe decrease in GFR 15-29 5 Kidney failure <15 (or dialysis) 5 Desirable: <150 Borderline High: 150-199 High: 200-499 Very High: >500 6 Desirable: <200 Borderline High: 200-239 High: >239 7 Low: <40 Desirable: 40-60 High: >60 8 Desirable: <100 Near Optimal: 100-129 Borderline High: 130-159 High: 160-189 Very High: >189 9 SEE RESULT BELOW Name: CARLYLE GIANG : [address]: Esteban Costa MD Acct: [id number] Unit: [id number] AGE: 72 Location: ED Re01/02/18 SEX: F Status: DEP ER SPEC: [id number] ORION: 01/02/18 [facility] [address]: Esteban Costa MD REQ: [id number] RECD: 01/02/18 STATUS: CB CASTREJON DR: Daren Root MD _ SOURCE: URINE SPDESC: ORDERED: Urine Culture Procedure Result Reported Site Urine Culture Final 01/04/18- 804 ML Organism 1 ESCHERICHIA COLI [place] Count 75-100,000 (Many) CFU/ML 1. ESCHERICHIA COLI [facility] RX --------- ------ Ampicillin >=32 R Cefazolin <=4 S Cefepime <=1 S Ceftriaxone <=1 S Ciprofloxacin <=0.25 S Gentamicin <=1 S Levofloxacin <=0.12 S Meropenem <=0.25 S Nitrofurantoin 64 I Tetracycline >=16 R Pipercillin/Tazobactam <=4 S Trimethoprim/Sulfamethoxazole <=20 S Amoxicillin/Clavulanic Acid 8 S Aztreonam <=1 S Contact the Microbiology Department for any additional antibiotic reporting. * - [facility] . END OF REPORT DEPARTMENT OF PATHOLOGY, [address] [place] [address] Shin Schmidt M.D. Director [facility] # [id number] 10 Because ethnic data is not always readily available, this report includes an eGFR for both -Americans and non- Americans. The National Kidney Disease Education Program (NKDEP) does not endorse the use of the MDRD equation for patients that are not between the ages of 18 and 70, are , have extremes of body size, muscle mass, or nutritional status, or are non- or non-. According to the National Kidney Foundation, irrespective of diagnosis, the stage of the disease is based on the level of kidney function: Stage Description GFR(mL/min/1.73 m(2)) 1 Kidney damage with normal or decreased GFR 90 2 Kidney damage with mild decrease in GFR 60-89 3 Moderate decrease in GFR 30-59 4 Severe decrease in GFR 15-29 5 Kidney failure <15 (or dialysis) 11 SEE RESULT BELOW Name: CARLYLE GIANG : [address]: Nghia Weber MD Acct: [id number] Unit: [id number] AGE: 72 Location: [place] [address] Re06/07/17 SEX: F Status: ADM IN SPEC: [id number] ORION: 06/07/171546 [facility] DR: Henri Holguin MD REQ: [id number] RECD: 06/07/17 STATUS: CB CSATREJON DR: Daren Root MD _ SOURCE: URINE [facility]: ORDERED: Urine Culture Procedure Result Reported Site Urine Culture Final 06/10/17- 0815 ML Organism 1 ESCHERICHIA COLI [place] Count 75-100,000 (Many) CFU/ML Organism 2 KLEBSIELLA PNEUMONIAE [place] Count 10-25,000 (Moderate) CFU/ML Organism 3 NORMAL ADRI [place] Count 10-25,000 (Moderate) CFU/ML 1. ESCHERICHIA COLI [facility] RX --------- ------ Ampicillin 8 S Cefazolin <=4 S Cefepime <=1 S Ceftriaxone <=1 S Ciprofloxacin <=0.25 S Gentamicin <=1 S Levofloxacin <=0.12 S Meropenem <=0.25 S Nitrofurantoin <=16 S Tetracycline <=1 S Pipercillin/Tazobactam <=4 S Trimethoprim/Sulfamethoxazole <=20 S Amoxicillin/Clavulanic Acid 4 S Aztreonam <=1 S CONTINUED ON NEXT PAGE * ML=Testing performed at Main Lab DEPARTMENT OF PATHOLOGY, [address] [place] [address] Shin Schmidt M.D. Director [facility] # [id number] Patient: CARLYLE GIANG [id number] (Continued) Specimen: [id number] Collected: 06/07/17-1545 Received: 06/07/17 (Continued) Procedure Result Reported Site Urine Culture Final (continued) 06/10/17- 814 2. KLEBSIELLA PNEUMONIAE M.I.C. RX --------- ------ Ampicillin R Cefazolin <=4 S Cefepime <=1 S Ceftriaxone <=1 S Ciprofloxacin <=0.25 S Gentamicin <=1 S Levofloxacin <=0.12 S Meropenem <=0.25 S Nitrofurantoin 64 I Tetracycline <=1 S Pipercillin/Tazobactam <=4 S Trimethoprim/Sulfamethoxazole <=20 S Amoxicillin/Clavulanic Acid 8 S Aztreonam <=1 S Contact the Microbiology Department for any additional antibiotic reporting. * ML - MAIN LAB ([facility]) . END OF REPORT * ML=Testing performed at Main Lab DEPARTMENT OF PATHOLOGY, [address] [place] [address] Shin Schmidt M.D. Director [facility] # [id number] 12 SEE RESULT BELOW Name: CARLYLE GIANG : [address]: Nghia Weber MD Acct: [id number] Unit: [id number] AGE: 72 Location: [place] [address] Re06/07/17 SEX: F Status: ADM IN SPEC: [id number] ORION: 06/07/17- SUBM DR: Nghia Weber MD REQ: [id number] RECD: 06/07/17 STATUS: SOUT _ ORDERED: LEVEL 5 FINAL DIAGNOSIS Small bowel, partial resection: -- Benign small intestinal tissue with fibromembranous adhesions and associated stricture. -- No evidence of neoplasia. -- One benign lymph node (0). PRE-OPERATIVE DIAGNOSIS Abdomen pain GROSS DESCRIPTION The specimen is received in formalin labeled, Stricture of Small Bowel, and consists of a 10.9 cm distorted unoriented length of small bowel with a small amount of adherent yellow fat. There is a shaggy stricture with an external diameter of 2.5 cm, 5.6 cm from the nearest margin. The remaining external diameter measures up to 4.1 cm. The serosa is glistening ji-pink and predominantly smooth with a small amount of adherent red-brown blood clot and a few focal fibromembranous adhesions. The circumference ranges from 4.7 cm at the stricture to 11.1 cm in the remaining specimen. The mucosa is glistening ji with normal folds and slightly edematous at the stricture. Sectioning through the adherent fat reveals one possible lymph node measuring 0.3 cm in greatest dimension. [employer] sections are submitted in cassettes A through E as follows: A-margins, B and C-stricture, D-mucosa and E-lymph node. Signed (signature on file) Renate Farooq MD 04/17 1134 END OF REPORT * ML=Testing performed at Main Lab DEPARTMENT OF PATHOLOGY, [address] [place] [address] Shin Schmidt M.D. Director CARLOS EDUARDO # [id number] 13 SEE RESULT BELOW Name: HERVE GIANGJAVY DAYE : [address]: Alexx Cho MD Acct: [id number] Unit: [id number] AGE: 72 Location: [place] [address] Re06/04/17 SEX: F Status: ADM IN SPEC: [id number] ORION: 06/03/17 [facility] [address]: Esteban Costa MD REQ: [id number] RECD: 06/03/17 STATUS: CB CASTREJON DR: Daren Root MD _ SOURCE: URINE SPDESC: ORDERED: Urine Culture Procedure Result Reported Site Urine Culture Final 06/04/17- 1639 ML Few Enterobacteriacae; possible contamination. * ML - MAIN LAB ([facility]) . END OF REPORT * ML=Testing performed at Main Lab DEPARTMENT OF PATHOLOGY, [address] [place] [address] Shin Schmidt M[address] Director [facility] # [id number] 14 Acute inflammation: >10.00 15 Because ethnic data is not always readily available, this report includes an eGFR for both -Americans and non- Americans. The National Kidney Disease Education Program (NKDEP) does not endorse the use of the MDRD equation for patients that are not between the ages of 18 and 70, are , have extremes of body size, muscle mass, or nutritional status, or are non- or non-. According to the National Kidney Foundation, irrespective of diagnosis, the stage of the disease is based on the level of kidney function: Stage Description GFR(mL/min/1.73 m(2)) 1 Kidney damage with normal or decreased GFR 90 2 Kidney damage with mild decrease in GFR 60-89 3 Moderate decrease in GFR 30-59 4 Severe decrease in GFR 15-29 5 Kidney failure <15 (or dialysis) 16 Bloody 17 Unable to evaluate urinalysis dipstick results due to interfering color. 18 Unable to evaluate urinalysis dipstick results due to interfering color. 19 Unable to evaluate urinalysis dipstick results due to interfering color. 20 Unable to evaluate urinalysis dipstick results due to interfering color. 21 Unable to evaluate urinalysis dipstick results due to interfering color. 22 Unable to evaluate urinalysis dipstick results due to interfering color. 23 Unable to evaluate urinalysis dipstick results due to interfering color. 24 Unable to evaluate urinalysis dipstick results due to interfering color. 25 Unable to evaluate urinalysis dipstick results due to interfering color. 26 Unable to evaluate urinalysis dipstick results due to interfering color. 27 SEE RESULT BELOW Name: CARLYLE GIANG : [address]: Nate Fontana MD Acct: [id number] Unit: [id number] AGE: 71 Location: ED Re05/09/17 SEX: F Status: DEP ER SPEC: [id number] ORION: 05/09/[address]: Barbie OLIVEIRA REQ: [id number] RECD: 05/09/17 STATUS: CB CASTREJON DR: Daren Fontana MD _ SOURCE: URINE SPDESC: ORDERED: Urine Culture Procedure Result Reported Site Urine Culture Final 05/11/17- 0848 ML Organism 1 ESCHERICHIA COLI [place] Count >100,000 (Many) CFU/ML 1. ESCHERICHIA COLI M.I.C. RX --------- ------ Ampicillin <=2 S Cefazolin <=4 S Cefepime <=1 S Ceftriaxone <=1 S Ciprofloxacin <=0.25 S Gentamicin <=1 S Levofloxacin <=0.12 S Meropenem <=0.25 S Nitrofurantoin <=16 S Tetracycline <=1 S Pipercillin/Tazobactam <=4 S Trimethoprim/Sulfamethoxazole <=20 S Amoxicillin/Clavulanic Acid <=2 S Aztreonam <=1 S Contact the Microbiology Department for any additional antibiotic reporting. * ML - MAIN LAB ([facility]) . END OF REPORT * ML=Testing performed at Main Lab DEPARTMENT OF PATHOLOGY, [address] [place] [address] Shin Schmidt M[address] Director [facility] # [id number] 28 Desirable: <150 Borderline High: 150-199 High: 200-499 Very High: >500 29 Desirable: <200 Borderline High: 200-239 High: >239 30 Low: <40 Desirable: 40-60 High: >60 31 Desirable: <100 Near Optimal: 100-129 Borderline High: 130-159 High: 160-189 Very High: >189 32 REFERENCE VALUE Not applicable 33 RESULT: Unable to calculate total ADDITIONAL INFORMATION This test was developed and its performance characteristics determined by [facility] in a manner consistent with CLIA requirements. This test has not been cleared or approved by the U.S. Food and Drug Administration. Test Performed by: [facility] [address] [place] [address] 34 Because ethnic data is not always readily available, this report includes an eGFR for both -Americans and non- Americans. The National Kidney Disease Education Program (NKDEP) does not endorse the use of the MDRD equation for patients that are not between the ages of 18 and 70, are , have extremes of body size, muscle mass, or nutritional status, or are non- or non-. According to the National Kidney Foundation, irrespective of diagnosis, the stage of the disease is based on the level of kidney function: Stage Description GFR(mL/min/1.73 m(2)) 1 Kidney damage with normal or decreased GFR 90 2 Kidney damage with mild decrease in GFR 60-89 3 Moderate decrease in GFR 30-59 4 Severe decrease in GFR 15-29 5 Kidney failure <15 (or dialysis) 35 Normal Range 180 to 914 Indeterminate Range 145 to 180 Deficient Range <145 36 ADDITIONAL INFORMATION This test was developed and its performance characteristics determined by [facility] in a manner consistent with CLIA requirements. This test has not been cleared or approved by the U.S. Food and Drug Administration. Test Performed by: [facility] [employer] - [address] [address] 37 ADDITIONAL INFORMATION This test was developed and its performance characteristics determined by [facility] in a manner consistent with CLIA requirements. This test has not been cleared or approved by the U.S. Food and Drug Administration. Test Performed by: [facility] [employer] - [address] [address] 38 Because ethnic data is not always readily available, this report includes an eGFR for both -Americans and non- Americans. The National Kidney Disease Education Program (NKDEP) does not endorse the use of the MDRD equation for patients that are not between the ages of 18 and 70, are , have extremes of body size, muscle mass, or nutritional status, or are non- or non-. According to the National Kidney Foundation, irrespective of diagnosis, the stage of the disease is based on the level of kidney function: Stage Description GFR(mL/min/1.73 m(2)) 1 Kidney damage with normal or decreased GFR 90 2 Kidney damage with mild decrease in GFR 60-89 3 Moderate decrease in GFR 30-59 4 Severe decrease in GFR 15-29 5 Kidney failure <15 (or dialysis) 39 Normal Range 180 to 914 Indeterminate Range 145 to 180 Deficient Range <145 40 ADDITIONAL INFORMATION This test was developed and its performance characteristics determined by [facility] in a manner consistent with CLIA requirements. This test has not been cleared or approved by the U.S. Food and Drug Administration. Test Performed by: [facility] [employer] - [facility] [address] [place] [address] Foam Caster: Steven Chau II, M.D., Ph.D. 41 ADDITIONAL INFORMATION This test was developed and its performance characteristics determined by [facility] in a manner consistent with CLIA requirements. This test has not been cleared or approved by the U.S. Food and Drug Administration. Test Performed by: [facility] - [address] [address] Foam Caster: Steven Chau II, M.D., Ph.D. 42 Because ethnic data is not always readily available, this report includes an eGFR for both -Americans and non- Americans. The National Kidney Disease Education Program (NKDEP) does not endorse the use of the MDRD equation for patients that are not between the ages of 18 and 70, are , have extremes of body size, muscle mass, or nutritional status, or are non- or non-. According to the National Kidney Foundation, irrespective of diagnosis, the stage of the disease is based on the level of kidney function: Stage Description GFR(mL/min/1.73 m(2)) 1 Kidney damage with normal or decreased GFR 90 2 Kidney damage with mild decrease in GFR 60-89 3 Moderate decrease in GFR 30-59 4 Severe decrease in GFR 15-29 5 Kidney failure <15 (or dialysis) 43 Desirable <150 Borderline high 150-199 High 200-499 Very High >500 44 Desirable <200 Borderline high 200-239 High >239 45 Low <40 Desirable: 40-60 High: >60 46 Desirable: <100 mg/dL Near Optimal: 100-129 mg/dL Borderline High: 130-159 mg/dL High: 160-189 mg/dL Very High: >189 mg/dL 47 Because ethnic data is not always readily available, this report includes an eGFR for both -Americans and non- Americans. The National Kidney Disease Education Program (NKDEP) does not endorse the use of the MDRD equation for patients that are not between the ages of 18 and 70, are , have extremes of body size, muscle mass, or nutritional status, or are non- or non-. According to the National Kidney Foundation, irrespective of diagnosis, the stage of the disease is based on the level of kidney function: Stage Description GFR(mL/min/1.73 m(2)) 1 Kidney damage with normal or decreased GFR 90 2 Kidney damage with mild decrease in GFR 60-89 3 Moderate decrease in GFR 30-59 4 Severe decrease in GFR 15-29 5 Kidney failure <15 (or dialysis) 48 Acute inflammation: >10.00 49 Serologic response to B. burgdorferi infection is not detected, but cannot rule out early infection during which low or undetectable antibody levels to B. burgdorferi may be present. If clinically indicated, a new serum specimen should be submitted in 7-14 days. Test Performed by: [place] [address] Foam Caster: Steven Chau II, M.D., Ph.D. 50 Because ethnic data is not always readily available, this report includes an eGFR for both -Americans and non- Americans. The National Kidney Disease Education Program (NKDEP) does not endorse the use of the MDRD equation for patients that are not between the ages of 18 and 70, are , have extremes of body size, muscle mass, or nutritional status, or are non- or non-. According to the National Kidney Foundation, irrespective of diagnosis, the stage of the disease is based on the level of kidney function: Stage Description GFR(mL/min/1.73 m(2)) 1 Kidney damage with normal or decreased GFR 90 2 Kidney damage with mild decrease in GFR 60-89 3 Moderate decrease in GFR 30-59 4 Severe decrease in GFR 15-29 5 Kidney failure <15 (or dialysis) 51 Desirable <150 Borderline high 150-199 High 200-499 Very High >500 52 Desirable <200 Borderline high 200-239 High >239 53 Low <40 Desirable: 40-60 High: >60 54 Desirable: <100 mg/dL Near Optimal: 100-129 mg/dL Borderline High: 130-159 mg/dL High: 160-189 mg/dL Very High: >189 mg/dL 55 FASTING 56 PT IS FASTING 57 Because ethnic data is not always readily available, this report includes an eGFR for both -Americans and non- Americans. The National Kidney Disease Education Program (NKDEP) does not endorse the use of the MDRD equation for patients that are not between the ages of 18 and 70, are , have extremes of body size, muscle mass, or nutritional status, or are non- or non-. According to the National Kidney Foundation, irrespective of diagnosis, the stage of the disease is based on the level of kidney function: Stage Description GFR(mL/min/1.73 m(2)) 1 Kidney damage with normal or decreased GFR 90 2 Kidney damage with mild decrease in GFR 60-89 3 Moderate decrease in GFR 30-59 4 Severe decrease in GFR 15-29 5 Kidney failure <15 (or dialysis) 58 PT IS FASTING 59 Normal Range 180 to 914 Indeterminate Range 145 to 180 Deficient Range <145 60 PT IS FASTING 61 -- REFERENCE VALUE -- 25-HYDROXY D TOTAL (D2+D3) Optimum levels in the healthy population are 20-50, patients with bone disease may benefit from higher levels within this range. Test Performed by: [address] [address] Foam Caster: Kody Geller III MArmen 62 Test Performed by: [place] [address] Foam Caster: Vanessa Mejias, Ph.D. 63 Test Performed by: [place] [address] Foam Caster: Vanessa Mejias, Ph.D. 64 RUN DATE: 10/19/13 [facility] LAB LIVE PAGE 1 RUN TIME: [address] [place] [address] Specimen Inquiry Name: CARLYLE GIANG : [address]: Johnnie Dudley MD Acct: [id number] Unit: [id number] AGE: 68 Location: OR Re10/18/13 SEX: F Status: REG [facility] SPEC: [id number] ORION: 10/18/13- SUBM DR: Johnnie Dudley MD REQ: [id number] RECD: 10/18/13-1109 STATUS: SOUT _ ORDERED: LEVEL III FINAL DIAGNOSIS Shoulder, left, shavings: A. Fragments of hyperplastic synovium with patchy chronic inflammation and neovascularization. B. Fragments of fibrocartilage, articular cartilage, fibroadipose tissue, and skeletal muscle. PRE-OPERATIVE DIAGNOSIS Left shoulder rotator cuff tear. GROSS DESCRIPTION The specimen is received in formalin labeled Carlyle Giang, Shavings Left Shoulder and consists of a 2.3 x 2.0 x 0.5 cm. aggregate of yellow and white tissue fragments. Timber Girdler sections, one cassette. Signed (signature on file) Shin Schmidt MD 1320 END OF REPORT * ML=Testing performed at Main Lab DEPARTMENT OF PATHOLOGY, [address] [place] [address] Shin Schmidt M[address] Director [facility] # [id number] 65 FASTING 66 Desirable <150 Borderline high 150-199 High 200-499 Very High >500 67 Desirable <200 Borderline high 200-239 High >239 68 Low <40 Desirable: 40-60 High: >60 69 Desirable <100 Near Optimal 100-129 Borderline high 130-159 High 160-189 Very High >189 70 Because ethnic data is not always readily available, this report includes an eGFR for both -Americans and non- Americans. The National Kidney Disease Education Program (NKDEP) does not endorse the use of the MDRD equation for patients that are not between the ages of 18 and 70, are , have extremes of body size, muscle mass, or nutritional status, or are non- or non-. According to the National Kidney Foundation, irrespective of diagnosis, the stage of the disease is based on the level of kidney function: Stage Description GFR(mL/min/1.73 m(2)) 1 Kidney damage with normal or decreased GFR 90 2 Kidney damage with mild decrease in GFR 60-89 3 Moderate decrease in GFR 30-59 4 Severe decrease in GFR 15-29 5 Kidney failure <15 (or dialysis) 71 per pcp 72 Because ethnic data is not always readily available, this report includes an eGFR for both -Americans and non- Americans. The National Kidney Disease Education Program (NKDEP) does not endorse the use of the MDRD equation for patients that are not between the ages of 18 and 70, are , have extremes of body size, muscle mass, or nutritional status, or are non- or non-. According to the National Kidney Foundation, irrespective of diagnosis, the stage of the disease is based on the level of kidney function: Stage Description GFR(mL/min/1.73 m(2)) 1 Kidney damage with normal or decreased GFR 90 2 Kidney damage with mild decrease in GFR 60-89 3 Moderate decrease in GFR 30-59 4 Severe decrease in GFR 15-29 5 Kidney failure <15 (or dialysis) 73 FASTING 74 FASTING 75 FASTING 76 -- REFERENCE VALUE -- 25-HYDROXY D TOTAL (D2+D3) Optimum levels in the healthy population are 20-50, patients with bone disease may benefit from higher levels within this range. Test Performed by: [address] [address] Foam Caster: Kody Geller III, M.D. 77 Test Performed by: [place] [address] Foam Caster: Vanessa Mejias, Ph.D. 78 Test Performed by: [address] [address] Foam Caster: Vanessa Mejias, Ph.D. 79 FASTING 80 FASTING 81 HDL Interpretation: Undesirable: High Risk: Less than 40 MG/DL Desirable: Low Risk: Greater than 60 MG/DL 82 LDL Interpretation: Low Risk Optimal Level: LDL Less than 100 MG/DL Near or Above Optimal: LDL 100-129 MG/DL Borderline High Risk: LDL 130-159 MG/DL High Risk: LDL 160-189 MG/DL Very High Risk: LDL Greater than 189 MG/DL 83 Because ethnic data is not always readily available, this report includes an eGFR for both -Americans and non- Americans. The National Kidney Disease Education Program (NKDEP) does not endorse the use of the MDRD equation for patients that are not between the ages of 18 and 70, are , have extremes of body size, muscle mass, or nutritional status, or are non- or non-. According to the National Kidney Foundation, irrespective of diagnosis, the stage of the disease is based on the level of kidney function: Stage Description GFR(mL/min/1.73 m(2)) 1 Kidney damage with normal or decreased GFR 90 2 Kidney damage with mild decrease in GFR 60-89 3 Moderate decrease in GFR 30-59 4 Severe decrease in GFR 15-29 5 Kidney failure <15 (or dialysis) Procedures Date Code Description Status 06/02/2018 [id number] Mammogram Completed 06/02/2018 [id number] Bone Mineral Density Test Completed 05/18/2018 67882 Repair Hernia Incisional/Ventral Initial, Reducible Completed 05/18/2018 61733 Repair Hernia Incisional/Ventral Initial, Reducible Completed 05/18/2018 65303 Repair Hernia Incisional/Ventral Initial, Reducible Completed 08/11/2017 13640 EKG Tracing & Interpretation Completed 06/07/2017 03219 Enterectomy Resect Small Intestine W/Anastomosis Completed (Single Resect) 06/07/2017 66040 Enterectomy Resect Small Intestine W/Anastomosis Completed (Single Resect) 06/07/2017 97637 Enterectomy Resect Small Intestine W/Anastomosis Completed (Single Resect) 07/14/2016 [id number] Mammogram Completed 07/03/2016 [id number] Colonoscopy Completed 06/26/2016 [id number] Colonoscopy Completed 04/01/2016 43547 EKG Tracing & Interpretation Completed 10/08/2014 81719 Stress Test Completed 10/08/2014 77514 Myocardial Perfusion Imaging Tomographic (Spect) Completed Multiple Studies 10/05/2014 78407 ECHO Transthoracic, Real-Time 2D With Doppler And Completed Color Flow 08/20/2014 36193 EKG Tracing & Interpretation Completed 10/18/2013 54313 Arthroscopy,Shoulder Decompression Of Subacromial Completed Space W/Acromio 10/18/2013 34356 Arthroscopy,Shoulder Decompression Of Subacromial Completed Space W/Acromio 10/18/2013 23291 Arthroscopy Shoulder,W/Rotator Cuff Repair Completed 10/18/2013 60287 Arthroscopy Shoulder,W/Rotator Cuff Repair Completed 09/06/2013 [id number] Mammogram Completed 05/03/2013 73417 Inject/Drain Joint/Bursa Major W/O US Completed 08/15/2012 19063 Holter Monitoring 24 HR New Completed 08/12/2012 73867 ECHO Transthoracic, Real-Time 2D With Doppler And Completed Color Flow 08/08/2012 96353 Stress Test Completed 08/08/2012 28031 Myocardial Perfusion Imaging Tomographic (Spect) Completed Multiple Studies 08/01/2012 22650 EKG Tracing & Interpretation Completed 07/08/2011 02981 Rad Exam; Foot Limited Completed 06/05/2011 79024 Rad Exam; Foot Limited Completed 05/20/2011 90805 Rad Exam; Ankle Comp Completed 05/20/2011 87402 FX Metatarsal Care Completed Encounters Type Date Location Provider Dx Diagnosis Office Visit 06/09/2018 Rheumatology Sadi Jamil, M85.89 Oth disrd of bone 10:00a [facility] density and structure, multiple sites Z98.84 Bariatric surgery status D64.9 Anemia, unspecified Office Visit 05/04/2018 10:20a [facility] Internal Sadi Jamil, Z00.00 Encntr for Medicine - [place] [address] medical exam w/o abnormal findings I10 Essential (primary) hypertension R05 Cough E78.5 Hyperlipidemia, unspecified K43.9 Ventral hernia without obstruction or gangrene H81.09 Meniere's disease, unspecified ear K21.9 Gastro-esophageal reflux disease without esophagitis Z12.31 Encntr screen mammogram for malignant neoplasm of breast N95.1 Menopausal and female climacteric states R73.03 Prediabetes Office Visit 03/14/2018 9:15a Surgical Nghiayunier Isaac K43.2 Incisional hernia [facility] Weber MD, without obstruction FACS or gangrene Office Visit 09/29/2017 9:40a [facility] Internal Zsofia I10 Essential (primary) Medicine - [place], [address] hypertension [address] M79.7 Fibromyalgia H81.09 Meniere's disease, unspecified ear Office Visit 09/20/2017 Surgical Nghia Weber, Z98.84 Bariatric surgery 9:30a [facility] , FACS status Office Visit 08/23/2017 [facility] Internal Elizabeth I10 Essential 10:40a Medicine - [place] [address] (primary) Rd hypertension Office Visit 08/11/2017 [facility] Kaden Dawn 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 reflux disease Hospitalists without esophagitis M79.7 Fibromyalgia Z98.84 Bariatric surgery status K56.600 Partial intestinal obstruction, unspecified as to cause Office Visit 05/03/2017 9:30a Surgical Nghia Isaac D50.9 Iron deficiency [facility]gy Weber MD, anemia, FACS unspecified Z98.84 Bariatric surgery status K28.9 Gastrojejunal ulcer, unsp as acute or chr, w/o hemor or perf Office Visit 04/23/2017 4:20p [facility] Internal Daren Whelan Z00.01 Encounter for Claudine Root M.D.,FACP general adult [place] medical exam w abnormal findings D50.9 Iron deficiency anemia, unspecified I10 Essential (primary) hypertension H81.09 Meniere's disease, unspecified ear I25.10 Athscl heart disease of [place] coronary artery w/o ang pctrs B37.0 Candidal stomatitis Z00.00 Encntr for general adult medical exam w/o abnormal findings Office Visit 02/04/2017 9:10a [facility] Internal Elizabeth B37.0 Candidal Medicine - [place], [employer] stomatitis [address] I10 Essential (primary) hypertension E87.6 Hypokalemia H81.09 Meniere's disease, unspecified ear Office Visit 04/20/2016 10:45a Surgical Nghia Isaac Z98.84 [facility] MD Gus, surgery status FACS Office Visit 04/01/2016 9:45a [facility] Kaden López I25.10 Athscl heart [facility] Jason Iglesias, disease of [facility] [place] coronary artery w/o ang pctrs Office Visit 10/03/2014 10:00a [facility] Akden Dawn 786.50 Pain Chest [facility] Jason Iglesias, Unspec [facility], FASNC 414.01 Coronary Atherosclerosis [place] Office Visit 08/20/2014 [facility] Kaden López 414.01 Coronary 10:00a Cardiology Of Jason Iglesias, Atherosclerosis [facility], FASNC [place] Office Visit 08/28/2013 [facility] Kaden Dawn 414.00 Coronary 8:45a Cardiology Of Jason Iglesias, Atherosclerosis [facility], [facility] Unspec Type Vessel [place]/Graft Office Visit 08/15/2013 Orthopedic Johnnie Young, 840.6 Sprains & Strains 2:45p Services Of Jason Supraspinatus C.M.A. (Muscle)(Tendon) Office Visit 07/27/2013 Orthopedic Flor 840.4 Sprains & Strains 9:15a Services Of Jason Licona Rotator Cuff C.M.A. (Capsule) Office Visit 07/19/2013 Orthopedic Flor 715.91 Osteoarthrosis Unspec 12:15p Services Of Jason Licona Genjosey Or Localized C.M.A. Shoulder 840.4 Sprains & Strains Rotator Cuff (Capsule) Office Visit 05/03/2013 1:30p Orthopedic [place] 715.91 Osteoarthrosis Services Of Jason Licona Unspec Genlzd Or C.M.A. Localized Shoulder 726.2 Shoulder Region Affections Other Not Elsewhere Class 726.10 Bursae & Tendon Disorders Shoulder Region Unspec Office Visit 08/17/2012 8:45a [facility] Kaden Dawn 414.9 Ischemic Heart [facility] Jason Iglesias, Disease Chronic [facility], FASNC Unspec Office Visit 08/01/2012 2:45p [facility] Kaden López 414.9 Ischemic Heart [facility] Jason Iglesias, Disease Chronic FACC, FASNC Unspec 780.2 Syncope & Collapse Plan of Treatment Future Appointment(s):11/02/2018 10:00 am - FANY Deleon at [facility] Internal Medicine - [address]06/20/2018 - Michael Fitzgerald, PAK43.9 Ventral hernia without obstruction or gangrene
--- OUTSIDE RECORDS SUMMARY | 2018-06-23 18:58 | XMS REPORT | Continuity of Care Document ---
:1945 External Reference #:[id number] Author Name Eva Finch Care Team Providers Name Role Phone Daren Root MD Primary Care Physician Unavailable Payers Type Date Identification Numbers Payment Provider Subscriber Policy Number: [id number] [employer] Donnamarie B Gulnac PayID: [id number] [address] [place] [address] Effective: 2011 Policy Number: [id number] Medicare Donnamarie B Gulnac Expires: 2017 PayID: [id number] [address] [place] [address] Advance Directives Description No Information Available Problems Date Description Provider Status Onset: 04/13/2017 Occult blood in stools Daren Root M.D.,FACP Active Onset: 08/20/2014 Coronary arteriosclerosis Kaden Iglesias M.D., FACC, Active FASNC Onset: 04/01/2017 Iron deficiency anemia Daren Root M.D.,FACP Active Onset: 04/01/2017 Essential hypertension Daren Root M.D.,FACP Active Onset: 04/23/2017 Shane-en-Y gastrojejunostomy Daren Root M.D.,FACP Active Note: sees Dr. Weber Onset: 04/23/2017 Major depressive disorder Daren Root M.D.,FACP Active Onset: 04/23/2017 Fibromyalgia Daren Root M.D.,FACP Active Onset: 10/03/2014 Chest pain Kaden Iglesias M.D., [facility], Inactive FASNC Inactive: 04/01/2017 Family History Date Family Member(s) Problem(s) Comments General Cancer General Diabetes General Heart Disease Father [place] fatal age 70 Father due to Heart () - 70s Disease Mother Cancer Mother due to Colon () - complications Cancer of colon cancer surgery Mother Heart Disease age 83 Siblings 1 Brother fatal [place] age 44 MGF [place], age 60 MGM Heart Disease, Breast Ca, age 80 PGM Breast Ca, age 55 PGF [place] Siblings None none now : (age 44 First Brother due to [place] Years) Social History Type Date Description Comments Sex Unknown Marital Status Lives With Occupation Retired Tobacco Use Start: Unknown Never Smoked Cigarettes Smoking Status Reviewed: 06/09/18 Never Smoked Cigarettes ETOH Use Denies alcohol [...] Sodium s tablet by Omero, mouth once COMMUNITY RECREATION COORDINATOR a week as directed Alendronate 06/05 Active Tablets 70mg 4tabs 1 tab by Zsofia Sodium mouth once Omero, a week with COMMUNITY RECREATION COORDINATOR a cup of water, first in the morning, 1 hour prior to any other intake. Do not lie down after taking it. Fluticasone 05/07 Active Suspension 50mcg/Act 16uni use 2 Zsofia Propionate ts sprays in Omero, each COMMUNITY RECREATION COORDINATOR nostril one time a day for 1 week, then 1 spray thereafter Phenazopyridine 01/04 Active Tablets 100mg 24tab 2 tabs po Zsofia HCL s tid as Omero, needed COMMUNITY RECREATION COORDINATOR Blood Pressure 09/29 Active Misc 1unit use daily I10 Zsofia Cuff s as Omero, instructed COMMUNITY RECREATION COORDINATOR to check bp Gabapentin 09/15 Active Tablets 600mg 180ta 2 tab at bs night Omero, COMMUNITY RECREATION COORDINATOR Losartan 08/23 Active Tablets 25mg 90tab 1 by mouth I10 Zsofia Potassium s every day Omero, COMMUNITY RECREATION COORDINATOR Omeprazole 03/[address] 20mg 240ca 1 by mouth Zsofi ps twice every , day COMMUNITY RECREATION COORDINATOR Simvastatin 08/25 Active Tablets 20mg 90tab 1 by mouth Zsofia s every day Omero, COMMUNITY RECREATION COORDINATOR Aspir-[address] 08/[address] 81mg 1 by mouth Kaden every day López Iglesias M.D., [facility], [facility] Amitriptyline Active Tablets 50mg 90tab 1 by mouth M79.7 Zsofia HCL s every night Omero, at bedtime COMMUNITY RECREATION COORDINATOR Cymbalta Active Caps DR 60mg 90cap 1 by mouth Zsofia / Part s every day Omero, COMMUNITY RECREATION COORDINATOR Klor-Con M10 Active Tablets ER 10Meq 180ta 2 by mouth Zsofia bs twice every , day COMMUNITY RECREATION COORDINATOR Vitamin B-12 Active Tablets Sub 500mcg 30tab 1 by mouth Unknown /0000 s every day( when remembers) Triamterene/Hydr Active Capsules 37.5-25mg 90cap 1 by mouth I10 Zsofia ochlorothiazide / s every day Omero, COMMUNITY RECREATION COORDINATOR Multivitamin Active Tablets 1 by mouth Unknown /0000 every day (when she remembers) Citracal 00 Active Tablets 2-4 a day Unknown /0000 PO(when remembers) Diazepam Active Tablets 5mg 45tab 1/2 tab by H81.09 Zsofia /0000 s mouth two Omero, to three COMMUNITY RECREATION COORDINATOR times a day Diltiazem CD Active Caps ER 240mg 90cap 1 by mouth Zsofia /0000 24HR s every day Omero, COMMUNITY RECREATION COORDINATOR Oxycodone-Acetam 05/09 Hx Tablets 5-325mg 20tab 1--2 tab by K43.9 Mari Higginbotham inophen s mouth every Foster, 4- 6 hours MD as needed for pain Azithromycin 05/07 Hx Tablets 250mg 6tabs take 2 tabs Zsofi on day one Omero, and 1 tabs COMMUNITY RECREATION COORDINATOR daily for 4 days Keflex 01/04 Hx Capsules 500mg 14cap 1 tab po Zsofia s bid for 7 Omero, days COMMUNITY RECREATION COORDINATOR Gabapentin 09/15 Hx Tablets 600mg 90tab 1 tab at Elizabeth /2018 s night Allan, MARIO ALBERTO Macrobid 05/09 Hx Capsules 100mg 14cap 1 [...] Daren for 7 days Cleopatra Root, - Michael.DIsaiah,FACP 04/30 Nystatin 02/04 Hx Suspension [id number] 473ml small amt B37.0 t/ML swish and Lemus, - swallow tid FOUNDRY METALLURGIST 04/23 Diltiazem CD 03/31 Hx Caps ER 240mg 30cap 1 by mouth Kaden 24HR s every day López Iglesias, 03/31 Jason, FACFORD Pierce Metoprolol 08/20 Hx Tablets ER 25mg 90tab 1 PO qd Kaden Succinate ER 24HR s López Iglesias 03/31 Jason, FACFORD Pierce Oxycodone HCL 10/19 Hx Tablets 5mg 40tab 1-2 tab by Johnnie s mouth every Luis Enrique, - 4-6 hours M.D. 01/15 as needed /2013 for breakthroug h pain Percocet 10/10 Hx [...] s every day López Iglesias, 03/31 M.D., [facility], [facility] Metoprolol 08/28 Hx Tablets ER 50mg 90tab 1 by mouth Kaden Succinate ER 24HR s every day López Iglesias, 08/20 M.D., /2014 [facility], [facility] Flovent HFA 08/28 Hx Aerosol 110mcg/Ac 12gm as needed Kaden ladonna Iglesias M.D., [facility], [facility] Veramyst 08/28 Hx Suspension 27.5mcg/S 10gm as needed Kaden pray López Iglesias, 02/03 M.DIsaiah, [facility] Naproxen 07/19 Hx Tablets 500mg 45tab 1 tablet Flor s q12 hours Livan, - prn pain M.D. 06/22 [place] 05/20 Hx Tablets 5-325mg 50tab 1-2 po q4h s prn Dirk, - M.DIsaiah 10/30 Ibuprofen 05/20 Hx Tablets 600mg 90tab tid s Dirk - M.DIsaiah 08/28 Gabapentin Hx Capsules 300mg 90cap 1 by night Elizabeth / s at night Allan - FOUNDRY METALLURGIST 09/15 Bumetanide Hx Tablets 0.5mg 90tab 2 [...] Administered Injection Kaden Dawn 99M Tetrofosmin, 2014 Harris Per Unit Dose Up M.D., To 40 [place] ARGUETA Depomedrol 80MG 05/03/ Administered Injection Flor 2012 Jason Licona Inj, 08/08/ Administered Injection Kaden Dawn Regadenoson, 0.1 2012 MG Jason Iglesias, FORD ARGUETA Aminophylline 08/08/ Administered Injection Kaden Dawn 2012 Jason Iglesias, FORD ARGUETA Technetium TC 08/08/ Administered Injection Kaden Dawn 99M Tetrofosmin, 2012 Harris Per Unit Dose Up M.D., To 40 [place] ARGUETA Immunizations CPT Code Status Date Vaccine Lot # [id number] Given 02/06/2017 Pneumonia Vaccine [id number] Given 02/06/2017 Influenza Virus Vaccine, Quadrivalent, Split, Preservative Free Vital Signs Date Vital Result Comment 06/09/2018 9:56am Height 64.5 inches 5'4.50" Weight [...] H/L Range Note CBC Auto Diff 06/09/2018 [facility] White Blood 5.9 10^3/uL N 3.5-10.[address] [place] [address] [phone] Red Blood Count 4.63 10^6/uL N 4.00-5.40 [...] Cells % 0.1 Vitamin B12 And 06/09/2018 [facility] Vitamin B12 499 pg/mL N 180-914 1 Folate Serum [address] [place] [address] [phone] Folic Acid (Folate) 16.69 ng/mL >3.99 Laboratory test 06/09/2018 [facility] Vitamin D Total 29.7 ng/ mL N 20-[address] 25(Oh) [place] [address] [phone] Laboratory test 05/18/2018 [facility] Surgical SEE RESULT [address] [place] [address] [phone] Comp Metabolic 04/25/2018 [facility] Sodium 141 mmol/L N 135- 145 [address] [place] [address] [phone] Potassium 4.0 mmol/L N 3.5-5.0 Chloride 104 [...] Egfr 56.9 >60 4 Lipid Profile 04/25/2018 [facility] Triglycerides 102 mg/dL 5 (Trig/Chol/HDL) [address] [place] [address] [phone] Cholesterol 163 mg/dL 6 HDL Cholesterol 66.4 mg/dL 7 LDL Cholesterol 76 mg/dL 8 Urine Culture And 01/02/2018 [facility] Urine Culture SEE RESULT [address] [place] [address] [phone] Urinalysis Profile 01/02/2018 [facility] Urine Color Bel[place] [address] [place] [address] [phone] Urine Appearance Cloudy Urine Specific [place] 1.024 N 1.010-1.030 Urine pH 5.0 N [...] Urine Bacteria Absent Absent Laboratory test 01/02/2018 [facility] Magnesium 2.1 mg/dL N 1.9-2.7 finding [address] [place] [address] [phone] C Reactive Protein < 1.00 mg/L N <8.01 Comp Metabolic Panel 01/02/2018 [facility] Sodium 138 mmol/L N 135-145 [address] [place] [address] [phone] Potassium 3.3 mmol/L Low 3.5-5.0 Chloride 103 [...] 48.9 >60 10 CBC Auto Diff 01/02/2018 [facility] White Blood 8.5 10^3/uL N 3.5-10.[address] [place] [address] [phone] Red Blood Count 3.90 10^6/uL Low 4.00-5.40 [...] Cells % 0 Urine Culture And 06/07/2017 [facility] Urine Culture SEE RESULT [address] [place] [address] [phone] Urinalysis Profile 06/07/2017 [facility] Urine Color [place] [address] [place] [address] [phone] Urine Appearance Cloudy Urine Specific [place] 1.034 High 1.010-1.030 Urine pH 5.0 N [...] Cryst Present Abnormal Absent Laboratory test 06/07/2017 [facility] Surgical SEE RESULT [address] [place] [place] [address] [phone] Urine Culture And 2017 [facility] Urine Culture SEE RESULT [address] [place] [address] [phone] Urinalysis Profile 2017 [facility] Urine Color Straw [address] [place] [address] [phone] Urine Appearance Clear Urine Specific [place] 1.005 Low 1.010-1.030 Urine pH 7.0 N [...] Cell Present Abnormal Absent Laboratory test 2017 [facility] Partial 32.3 seconds N 26.0-36.[address] [place] [address] [phone] Inr/Protime 2017 [facility] Inr 0.93 N 0.77-1.[address] [place] [address] [phone] Laboratory test 2017 [facility] Magnesium 2.1 mg/dL N 1.9-2.[address] [place] [address] [phone] Amylase 47 U/L N 29-103 C Reactive Protein 1.92 mg/L N < 5.00 14 Comp Metabolic Panel 2017 [facility] Sodium 137 mmol/L N 133-[address] [place] [address] [phone] Potassium 3.4 mmol/L Low 3.5-5.0 Chloride 101 [...] 58.6 >60 15 CBC Auto Diff 2017 [facility] White Blood 5.9 10^3/uL N 3.5-10.[address] [place] [address] [phone] Red Blood Count 4.53 10^6/uL N 4.0-5.4 [...] Blood Cells % 0 Urinalysis Profile 05/09/2017 [facility] Urine Color Red Abnormal [address] [place] [address] [phone] Urine Appearance (SEE NOTE) 16 Urine Specific [place] 1.024 N 1.010-1.030 Urine pH (SEE NOTE) [...] 1+ Abnormal Absent Urine Culture And 05/09/2017 [facility] Urine Culture SEE RESULT [address] [place] [address] [phone] Occult Blood,Stool 04/12/2017 [facility] In House Occult Blood - pos x2, neg (3 Spec) Stool x1 Lipid Profile 04/01/2017 [facility] Triglycerides 76 mg/dL N 28 (Trig/Chol/HDL) [address] [place] [address] [phone] Cholesterol 140 mg/dL N 29 HDL Cholesterol 62.2 mg/dL N 30 LDL Cholesterol 63 mg/dL N 31 Amitriptyline Level 04/01/2017 [facility] Amitriptyline 42 ng/ mL N [address] [place] [address] [phone] Nortriptyline <20 ng/mL Abnormal 70-170 Amitriptyline+Nortriptyline See Comment ng/mL N 80-200 33 CBC Auto Diff 04/01/2017 [facility] White Blood 5.1 10^3/uL N 3.5-10.[address] [place] [address] [phone] Red Blood Count 3.95 10^6/uL Low 4.0-5.4 [...] % 0 N Comp Metabolic Panel 04/01/2017 [facility] Sodium 136 mmol/L N 133-[address] [place] [address] [phone] Potassium 4.1 mmol/L N 3.5-5.0 Chloride 100 [...] >60 34 Iron & Iron Binding 04/01/2017 [facility] Iron 49 g/dL Low 50-[address] [place] [address] [phone] Unsaturated Iron Binding 462 g/dL N Total Iron Binding Capacity 511 g/dL High 250-450 % Iron Saturation 10 % Low 15-55 Laboratory test 04/01/2017 [facility] Ferritin < 10.0 ng/mL Low 11-307 finding [address] [place] [address] [phone] Folic Acid (Folate) 14.23 ng/mL N >3.99 Vitamin B12 690 pg/mL N 180-911 35 Vitamin D Total 25(Oh) 30.1 ng/mL N 20-50 Vitamin E Level 8.2 mg/L N 5.5 - 17.0 36 Vitamin B1 (Whole Blood) 181 nmol/L Abnormal 70-180 37 Basic Metabolic Panel 02/09/2017 [facility] Sodium 140 mmol/L N 133-145 [address] [place] [address] [phone] Potassium 3.7 mmol/L N 3.5-5.0 Chloride 101 mmol/L N 101-111 Co2 Carbon Dioxide 34 mmol/L High 22-32 Anion Gap 5 mmol/L N 2-11 Glucose 103 mg/dL High 70-100 Blood Urea Nitrogen 16 mg/dL N 6-24 Creatinine 1.26 mg/dL High 0.51-0.95 BUN/Creatinine Ratio 12.7 N 8-20 Calcium 9.7 mg/dL N 8.6-10.3 Egfr Non- 42.0 N >60 Egfr 54.0 N >60 38 Bariatric Panel 03/31/2016 [facility] Vitamin B12 200 pg/mL N 180-914 39 Post Op [address] [place] [address] [phone] Folic Acid (Folate) 8.92 ng/mL N >3.99 Vitamin B1 (Whole Blood) 166 nmol/L N 70-180 40 Vitamin E Level 8.6 mg/L N 5.5 - 17.0 41 Comp Metabolic Panel 03/31/2016 [facility] Sodium 138 mmol/L N 133-[address] [place] [address] [phone] Potassium 4.0 mmol/L N 3.5-5.0 Chloride 103 [...] N >60 42 Iron & Iron 03/31/2016 [facility] Total Iron 475 g/dL High 250-[address] [place] [address] Capacity [phone] Iron 104 g/dL N 50-212 Unsaturated Iron Binding 371 g/dL N % Iron Saturation 22 % N 15-55 CBC Auto Diff 03/31/2016 [facility] White Blood 4.3 10^3/uL N 3.5-10.[address] [place] [address] [phone] Red Blood Count 4.09 10^6/uL N 4.0-5.4 [...] Cells % 0 N Lipid Profile 09/02/2015 [facility] Triglycerides 114 mg/dL N 43 (Trig/Chol/HDL) [address] [place] [address] [phone] Cholesterol 198 mg/dL N 44 HDL Cholesterol 50.8 mg/dL N 45 LDL Cholesterol 124 mg/dL N 46 Comp Metabolic Panel 09/02/2015 [facility] Sodium 139 mmol/L N 133-145 [address] [place] [address] [phone] Potassium 3.1 mmol/L Low 3.5-5.0 Chloride 101 [...] 44.6 N >60 47 Laboratory test 10/10/2014 [facility] C Reactive < 1.00 N < 5.00 [address] Protein mg/[place] [address] [phone] TSH (Thyroid Stimulating Horm) 3.56 ?IU/mL N 0.34-5.60 Lyme Disease Serology Negative N Negative 49 Comp Metabolic Panel 10/10/2014 [facility] Sodium 135 mmol/L N 133-[address] [place] [address] [phone] Potassium 3.1 mmol/L Low 3.5-5.0 Chloride 91 [...] N >60 50 CBC Auto Diff 10/10/2014 [facility] White Blood 6.5 10^3/uL N 4.8-10.[address] [place] [address] [phone] Red Blood Count 4.68 10^6/uL N 4.0-5.4 [...] Cells % 0 N Lipid Profile 08/22/2014 [facility] Triglycerides 91 mg/dL N 51 (Trig/Chol/HDL) [address] [place] [address] [phone] Cholesterol 201 mg/dL N 52 HDL Cholesterol 58.4 mg/dL N 53 LDL Cholesterol 124 mg/dL N 54 Laboratory test 08/22/2014 [facility] Ast 27 U/L N 13-39 [address] [place] [address] [phone] CBC Auto Diff 02/15/2014 [facility] White Blood 4.3 Low 4.8- 10.[address] Count 10^3/[place] [address] [phone] Red Blood Count 4.03 10^6/uL N 4.0-5.4 [...] % 0.1 N Comp Metabolic Panel 02/15/2014 [facility] Sodium 139 mmol/L N 133-145 [address] [place] [address] [phone] Potassium 3.8 mmol/L N 3.7-5.6 Chloride 105 [...] >60 57 Iron & Iron Binding 02/15/2014 [facility] Iron 90 g/dL N 50- 212 Capacity [address] [place] [address] [phone] Unsaturated Iron Binding 285 g/dL N Total Iron Binding Capacity 375 g/dL N 250-450 % Iron Saturation 24 % N 15-55 Laboratory test 02/15/2014 [facility] Ferritin 34.5 ng/mL N 11 -307 58 finding [address] [place] [address] [phone] Vitamin B12 322 pg/mL N 180-914 59 Folate 16.74 ng/mL N >3.99 60 Vitamin D, 25 02/15/2014 [facility] 25-Hydroxy Vitamin <4.0 ng/ mL N Hydroxy [address] [place] [address] [phone] 25-Hydroxy Vitamin D3 34 ng/mL N 25-Hydroxy Vitamin D Total 34 ng/mL N 61 Laboratory test 02/15/2014 [facility] Vitamin B1 197 nmol/L Abnormal 70-[address] [place] [address] [phone] Vitamin E Level 8.5 mg/L N 5.5 - 17.0 63 Surgical 10/18/2013 [facility] S RUN DATE: [address] 10/19/ <[place] [address] NOTE> [phone] CBC Auto Diff 10/06/2013 [facility] White Blood 4.4 10^3/uL Low 4.8-[address] Count .8 [place] [address] [phone] Red Blood Count 4.17 10^6/uL N 4.0-5.4 [...] Cells % 0 N Lipid Profile 09/12/2013 [facility] Triglycerides 66 mg/dL N 65, 66 (Trig/Chol/HDL) [address] [place] [address] [phone] Cholesterol 122 mg/dL N 67 HDL Cholesterol 46.6 mg/dL N 68 LDL Cholesterol 62 mg/dL N 69 Comp Metabolic Panel 09/12/2013 [facility] Sodium 140 mmol/L N 133-[address] [place] [address] [phone] Potassium 3.9 mmol/L N 3.7-5.6 Chloride 104 [...] 62.4 N >60 70 CBC Auto 02/10/2013 [facility] White Blood 3.5 10^3/uL Low 4.8 -10.8 [address] [place] [address] [phone] Red Blood Count 3.79 10^6/uL Low 4.0-5.4 [...] Cells % 0.1 Comp Metabolic Panel 02/10/2013 [facility] Sodium 141 mmol/L 133-145 [address] [place] [address] [phone] Potassium 4.0 mmol/L 3.5-5.0 Chloride 106 mmol/L [...] >60 72 Iron & Iron Binding 02/10/2013 [facility] Iron 136 g/dL 28- 170 Capacity [address] [place] [address] [phone] Unsaturated Iron Binding 199 g/dL Total Iron Binding Capacity 335 g/dL 250-450 % Iron Saturation 41 % 15-55 Laboratory test 02/10/2013 [facility] Ferritin 55 ng/mL 11- 307 73 finding [address] [place] [address] [phone] Vitamin B12 446 pg/mL 180-914 74 Folate 11.7 ng/mL 2-16 75 Vitamin D, 25 02/10/2013 [facility] 25-Hydroxy Vitamin <4.0 ng/ mL Hydroxy [address] [place], [place] [address] [phone] 25-Hydroxy Vitamin D3 31 ng/mL 25-Hydroxy Vitamin D Total 31 ng/mL 76 Laboratory test 02/10/2013 [facility] Vitamin B1 213 nmol/L Abnormal 70-[address] [place] [address] [phone] Vitamin E Level 8.1 mg/L 5.5 - 17.0 78 Laboratory test 10/08/2012 [facility] Vitamin B12 1026 pg/mL High 180-[address] [place], [place] [address] [phone] TSH (Thyroid Stimulating Horm) 3.67 miu/mL 0.34-5.60 80 Lipid Profile 10/08/2012 [facility] Triglycerides 76 mg/dL 40 -200 (Trig/Chol/HDL) [address] [place], [place] [address] [phone] Cholesterol 135 mg/dL Less than 200 HDL Cholesterol 49 mg/dL 40-60 81 Cholesterol/HDL Ratio 2.8 Average 1-4.44 LDL Cholesterol 70.8 mg/dL Less Than 100 82 Comp Metabolic Panel 10/08/2012 [facility] Sodium 142 mmol/L 133-145 [address] [place] [address] [phone] Potassium 4.3 mmol/L 3.5-5.0 Chloride 105 mmol/L [...] Egfr 57.8 >60 83 CBC Auto 10/08/2012 [facility] White Blood 4.6 10^3/uL Low 4.8 -10.[address] Count [place], [place] [address] [phone] Red Blood Count 4.06 10^6/uL 4.0-5.4 Hemoglobin [...] Range <145 2 SEE RESULT BELOW Name: OLENAJESSICACARLYLEE : [address]: Nghia Weber MD Acct: [id number] Unit: [id number] AGE: 72 Location: [place] [address] Re05/18/18 SEX: F Status: ADM Barbara SPEC: [id number] ORION: 05/18/18- SUBM DR: Nghia Weber MD REQ: [id number] RECD: 05/18/18 STATUS: SOUT _ ORDERED: LEVEL 2 FINAL DIAGNOSIS Inguinal region, herniorrhaphy: -- Hernia sac PRE-OPERATIVE DIAGNOSIS Ventral hernia. GROSS DESCRIPTION The specimen is received in formalin labeled, Ventral Hernia Sac, and consists of three ji-red irregular to semi-saccular wrinkled rubbery fibromembranous tissue fragments admixed with scant yellow adipose tissue aggregating 10.3 by up to 2.3 x 0.6 cm. Bucket Wash Operator sections, one cassette. Signed by and Reported on: Shin Schmidt MD 1603 END OF REPORT DEPARTMENT OF PATHOLOGY, [address] [place] [address] Shin Schmidt M.D. Director [facility] # [id number] FASTING 4 Because ethnic data is [...] [address]: Esteban Costa MD Acct: [id number] Unit: [id number] AGE: 72 Location: ED Re01/02/18 SEX: F Status: DEP ER SPEC: [id number] ORION: 01/02/[address] [facility] [address]: Esteban Costa MD REQ: [id number] RECD: 01/02/18 STATUS: CB CASTREJON DR: Daren Root MD _ SOURCE: URINE SPDESC: ORDERED: Urine Culture Procedure Result Reported Site Urine Culture Final 01/04/18- 08 ML Organism 1 ESCHERICHIA COLI Borger Count 75-100,000 (Many) CFU/ML 1. ESCHERICHIA COLI [...] any additional antibiotic reporting. * ML - Main Lab . END OF REPORT DEPARTMENT OF PATHOLOGY, [address] [place] [address] Shin Schmidt M.D. Director [facility] # [id number] 10 Because ethnic data is not always [...] (or dialysis) 11 SEE RESULT BELOW Name: HERVE GIANGJAVY PENDLETON : [address]: Nghia Weber MD Acct: [id number] Unit: [id number] AGE: 72 Location: [place] [address] Re06/07/17 SEX: F Status: ADM IN SPEC: [id number] ORION: 06/07/17-[address] [facility] [address]: Henri Holguin MD REQ: [id number] RECD: 06/07/17 STATUS: CB CASTREJON DR: Daren Root MD _ SOURCE: URINE SPDESC: ORDERED: Urine Culture Procedure Result Reported Site Urine Culture Final 06/10/17- 15 ML Organism 1 ESCHERICHIA COLI Borger Count 75-100,000 (Many) CFU/ML Organism 2 KLEBSIELLA PNEUMONIAE Borger Count 10-25,000 (Moderate) CFU/ML Organism 3 NORMAL ADRI Borger Count 10-25,000 (Moderate) CFU/ML 1. ESCHERICHIA COLI [...] performed at Main Lab DEPARTMENT OF PATHOLOGY, [address] [place] [address] Shin Schmidt M.D. Director [facility] # [id number] Patient: CARLYLE GIANG [id number] (Continued) Specimen: [id number] Collected: 06/07/17 Received: 06/07/17 (Continued) Procedure Result Reported Site Urine Culture Final (continued) 06/10/17814 2. KLEBSIELLA PNEUMONIAE M.I.C. RX --------- ------ Ampicillin R Cefazolin <=4 S Cefepime <=1 S Ceftriaxone <=1 S Ciprofloxacin <=0.25 S Gentamicin <=1 S Levofloxacin <=0.12 S Meropenem <=0.25 S Nitrofurantoin 64 I Tetracycline <=1 S Pipercillin/Tazobactam <=4 S Trimethoprim/Sulfamethoxazole <=20 S Amoxicillin/Clavulanic Acid 8 S Aztreonam <=1 S Contact the Microbiology Department for any additional antibiotic reporting. * ML - MAIN LAB ([facility]) . END OF REPORT * ML=Testing performed at Main Lab DEPARTMENT OF PATHOLOGY, [address] [place] [address] Shin Schmidt M.D. 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 -- No evidence of neoplasia. -- One benign lymph node (0/1). PRE-OPERATIVE DIAGNOSIS Abdomen pain GROSS DESCRIPTION The [...] node measuring 0.3 cm in greatest dimension. Bucket Wash Operator sections are submitted in cassettes A through E as follows: A-margins, B and C-stricture, D-mucosa and E-lymph node. Signed (signature on file) Renate Farooq MD 04/17 1134 END OF REPORT * ML=Testing performed at Main Lab DEPARTMENT OF PATHOLOGY, [address] [place] [id number] Shin Schmidt M.D. Director [facility] # [id number] 13 SEE RESULT BELOW Name: CARLYLE GIANG : [address]: Alexx Cho MD Acct: [id number] Unit: [id number] AGE: 72 Location: [place] [address] Re06/04/17 SEX: F Status: ADM IN SPEC: [id number] ORION: 06/03/[address] [facility] [address]: Esteban Costa MD REQ: [id number] RECD: 06/03/17 STATUS: COMP CASH DR: Daren Root MD _ SOURCE: URINE SPDESC: ORDERED: Urine Culture Procedure Result Reported Site Urine Culture Final 06/04/17- 1639 ML Few Enterobacteriacae; possible contamination. * ML - MAIN LAB ([facility]) . END OF REPORT * ML=Testing performed at Main Lab DEPARTMENT OF PATHOLOGY, [address] [place] [address] Shin Schmidt M.D. Director [facility] # [id number] 14 Acute inflammation: >10.00 15 Because ethnic [...] [address]: Nate Fontana MD Acct: [id number] Unit: [id number] AGE: 71 Location: ED Re05/09/17 SEX: F Status: DEP ER SPEC: [id number] ORION: 05/09/[address] [facility] [address]: Barbie OLIVEIRA REQ: [id number] RECD: 05/09/17 STATUS: CB CASTREJON DR: Daren Fontana MD _ SOURCE: URINE SPDESC: ORDERED: Urine Culture Procedure Result Reported Site Urine Culture Final 05/11/17- 0848 ML Organism 1 ESCHERICHIA COLI Borger Count >100,000 (Many) CFU/ML 1. ESCHERICHIA COLI [...] antibiotic reporting. * ML - MAIN LAB ([facility]) . END OF REPORT * ML=Testing performed at Main Lab DEPARTMENT OF PATHOLOGY, [address] [place] [address] Shin Schmidt M.D. Director [facility] # [id number] 28 Desirable: <150 Borderline High: 150-199 High: 200-499 Very High: >500 29 Desirable: <200 Borderline High: 200-239 High: >239 30 Low: <40 Desirable: 40-60 High: >60 31 Desirable: <100 Near Optimal: 100-129 Borderline High: 130-159 High: 160-189 Very High: >189 32 REFERENCE VALUE Not applicable 33 RESULT: Unable to calculate total ADDITIONAL INFORMATION This test was developed and its performance characteristics determined by [facility] in a manner consistent with CLIA requirements. This test has not been cleared or approved by the U.S. Food and Drug Administration. Test Performed by: [facility] [employer] [place] [address] 34 Because ethnic data is not always [...] developed and its performance characteristics determined by [facility] in a manner consistent with CLIA requirements. This test has not been cleared or approved by the U.S. Food and Drug Administration. Test Performed by: [facility] [employer] [place] [employer] [address] [place] [address] 37 ADDITIONAL INFORMATION This test was developed and its performance characteristics determined by [facility] in a manner consistent with CLIA requirements. This test has not been cleared or approved by the U.S. Food and Drug Administration. Test Performed by: [facility] [employer] - [facility] [address] [place] [address] 38 Because ethnic data is not always [...] developed and its performance characteristics determined by [facility] in a manner consistent with CLIA requirements. This test has not been cleared or approved by the U.S. Food and Drug Administration. Test Performed by: [facility] [employer] - [address] [address] Ang[place]: Steven Chau II, M.D., Ph.D. 41 ADDITIONAL INFORMATION This test was developed and its performance characteristics determined by [facility] in a manner consistent with CLIA requirements. This test has not been cleared or approved by the U.S. Food and Drug Administration. Test Performed by: [place] [address] Anglesmith: Steven Chau II, M.D., Ph.D. 42 Because [...] submitted in 7-14 days. Test Performed by: [address] [address] Ang[place]: Steven Chau II, M.D., Ph.D. 50 Because [...] levels within this range. Test Performed by: [facility] - [address] [address] Ang[place]: Kody Geller III, M.D. 62 Test Performed by: [place] [address] [place]: Vanessa Mejias, Ph.D. 63 Test Performed by: [place] [address] [place]: Vanessa Mejias, Ph.D. 64 RUN DATE: 10/19/13 [facility] LAB LIVE PAGE 1 RUN TIME: [address] [place] [address] Specimen Inquiry Name: CARLYLE GIANG : [address]: Johnnie Dudley MD Acct: [id number] Unit: [id number] AGE: 68 Location: [place] Re10/18/13 SEX: F Status: [place] [facility]C: [id number] ORION: 10/18/13- SUBM DR: Johnnie Dudley MD REQ: [id number] RECD: 10/18/13-1109 STATUS: SOUT _ ORDERED: LEVEL III FINAL DIAGNOSIS Shoulder, left, shavings: A. Fragments of hyperplastic synovium with patchy chronic inflammation and neovascularization. B. Fragments of fibrocartilage, articular cartilage, fibroadipose tissue, and skeletal muscle. PRE-OPERATIVE DIAGNOSIS Left shoulder rotator cuff tear. GROSS DESCRIPTION The specimen is received in formalin labeled Carlylejavy Avilaac, Shavings Left Shoulder and consists of a 2.3 x 2.0 x 0.5 cm. aggregate of yellow and white tissue fragments. Bucket Wash Operator sections, one cassette. Signed (signature on file) Shin Schmidt MD 1320 END OF REPORT * ML=Testing performed at Main Lab DEPARTMENT OF PATHOLOGY, [address] [place] [address] Shin Schmidt M.D. Director [facility] # [id number] 65 FASTING 66 Desirable <150 Borderline high [...] levels within this range. Test Performed by: [place] [address] Ang[place]mith: Kody Geller III, M.D. 77 Test Performed by: [place] [address] [employer]: Vanessa Mejias, Ph.D. 78 Test Performed by: [address] [address] Ang[place]mith: Vanessa Mejias, Ph.D. 79 FASTING 80 FASTING [...] dialysis) Procedures Date Code Description Status 06/02/2018 [id number] Mammogram Completed 06/02/2018 [id number] Bone Mineral Density Test Completed 05/18/2018 23813 Repair Hernia Incisional/Ventral Initial, Reducible Completed 05/18/2018 73941 Repair Hernia Incisional/Ventral Initial, Reducible Completed 05/18/2018 61489 Repair Hernia Incisional/Ventral Initial, Reducible Completed 08/11/2017 15083 EKG Tracing & Interpretation Completed 06/07/2017 24182 Enterectomy Resect Small Intestine W/Anastomosis Completed (Single Resect) 06/07/2017 25086 Enterectomy Resect Small Intestine W/Anastomosis Completed (Single Resect) 06/07/2017 03072 Enterectomy Resect Small Intestine W/Anastomosis Completed (Single Resect) 07/14/2016 [id number] Mammogram Completed 07/03/2016 90402241 Colonoscopy Completed 06/26/2016 57704788 Colonoscopy Completed 04/01/2016 35983 EKG Tracing & Interpretation Completed 10/08/2014 25168 Stress Test Completed 10/08/2014 71499 Myocardial Perfusion Imaging Tomographic (Spect) Completed Multiple Studies 10/05/2014 61726 ECHO Transthoracic, Real-Time 2D With Doppler And Completed Color Flow 08/20/2014 61327 EKG Tracing & Interpretation Completed 10/18/2013 51878 Arthroscopy,Shoulder Decompression Of Subacromial Completed Space W/Acromio 10/18/2013 56829 Arthroscopy,Shoulder Decompression Of Subacromial Completed Space W/Acromio 10/18/2013 31589 Arthroscopy Shoulder,W/Rotator Cuff Repair Completed 10/18/2013 97409 Arthroscopy Shoulder,W/Rotator Cuff Repair Completed 09/06/2013 91700541 Mammogram Completed 05/03/2013 19576 Inject/Drain Joint/Bursa Major W/O US Completed 08/15/2012 53652 Holter Monitoring 24 HR New Completed 08/12/2012 18671 ECHO Transthoracic, Real-Time 2D With Doppler And Completed Color Flow 08/08/2012 21378 Stress Test Completed 08/08/2012 91081 Myocardial Perfusion Imaging Tomographic (Spect) Completed Multiple Studies 08/01/2012 88209 EKG Tracing & Interpretation Completed 07/08/2011 55623 Rad Exam; Foot Limited Completed 06/05/2011 77087 Rad Exam; Foot Limited Completed 05/20/2011 85198 Rad Exam; Ankle Comp Completed 05/20/2011 91157 FX Metatarsal Care Completed Encounters Type Date Location Provider Dx Diagnosis Office Visit 05/04/2018 [facility] Sadi Jamil, Z00.00 Encntr for general 10:20a Medicine - [place] [employer] RE[employer] COORDINATOR adult medical exam Rd w/o abnormal findings I10 Essential (primary) hypertension R05 Cough E78.5 Hyperlipidemia, unspecified K43.9 Ventral hernia without obstruction or gangrene H81.09 Meniere's disease, unspecified ear K21.9 Gastro-esophageal reflux disease without esophagitis Z12.31 Encntr screen mammogram for malignant neoplasm of breast N95.1 Menopausal and female climacteric states R73.03 Prediabetes Office Visit 03/14/2018 9:15a Surgical Nghia Isaac K43.2 Incisional [facility]nia [facility] Weber MD, without obstruction FACS or gangrene Office Visit 09/29/2017 9:40a [facility] Sadi I10 Essential (primary) Medicine - [place] FANY Jamil hypertension Rd M79.7 Fibromyalgia H81.09 Meniere's disease, unspecified ear Office Visit 09/20/2017 Hailey Weber, Z98.84 Bariatric surgery 9:30a [facility] DAVIS, FACS status Office Visit 08/23/2017 [facility] Internal Elizabeth I10 Essential 10:40a Medicine - [place] Lemus NP (primary) Rd hypertension Office Visit 08/11/2017 [facility] Kaden Dawn I25.10 Athscl heart 10:15a Of Mag[facility] Iglesias M.D., disease of ak chin FACC, FASNC coronary artery w/o ang pctrs Office Visit 06/23/2017 [facility] Internal Elizabeth I10 Essential 9:50a Medicine - T[place] Lemus NP (primary) Rd hypertension Office Visit 06/04/2017 [facility] K21.9 Gastro- esophageal 6:54a shelia Wu II, M.D. reflux disease Hospitalists without esophagitis M79.7 Fibromyalgia Z98.84 Bariatric surgery status K56.600 Partial intestinal obstruction, unspecified as to cause Office Visit 05/03/2017 9:30a Surgical Nghia P. 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 Z98.84 [facility] Weber MD, surgery status FACS Office Visit 04/01/2016 9:45a [facility] Kaden Dawn I25.10 Athscl heart Of Equipment Sterilizer Jason Iglesias, disease of FACC, FASNC ak chin coronary artery w/o ang pctrs Office Visit 10/03/2014 10:00a [facility] Kaden Dawn 786.50 Pain Chest Of [facility] Iglesias M.D., Unspec FACC, FASNC 414.01 Coronary Atherosclerosis [place] Office Visit 08/20/2014 [facility] Kaden Dawn 414.01 Coronary 10:00a Cardiology Of Jason Iglesias, Atherosclerosis [facility] FACStan, FASNC [place] Office Visit 08/28/2013 [facility] Kaden Dawn 414.00 Coronary 8:45a Cardiology Hilario Iglesias M.D., Atherosclerosis [facility], FASNC Unspec Type Vessel [place] Office Visit 08/15/2013 Orthopedic Johnnie Dudley, 840.6 Sprains & Strains 2:45p Services Of Jason Supraspinatus C.M.A. (Muscle)(Tendon) Office Visit 07/27/2013 Orthopedic Flor 840.4 Sprains & Strains 9:15a Services Of Jason Licona Rotator Cuff C.M.A. (Capsule) Office Visit 07/19/2013 Orthopedic Flor 715.91 Osteoarthrosis Unspec 12:15p Services Of Jason Licona Genlziván Or Localized C.M.A. Shoulder 840.4 Sprains & Strains Rotator Cuff (Capsule) Office Visit 05/03/2013 1:30p Orthopedic Flor 715.91 Osteoarthrosis Services Of Jason iLcona Unspec Genlzd Or C.M.A. Localized Shoulder 726.2 Shoulder Region Affections Other Not Elsewhere Class 726.10 Bursae & Tendon Disorders Shoulder Region Unspec Office Visit 08/17/2012 8:45a [facility] Kaden Dawn 414.9 Ischemic Heart Of Maggy Iglesias M.D., Disease Chronic FACC, FASNC Unspec Office Visit 08/01/2012 2:45p [facility] Kaden Dawn 414.9 Ischemic Heart Of [facility] Jason Iglesias, Disease Chronic FACC, FASNC Unspec 780.2 Syncope & Collapse Plan of Treatment Future Appointment(s):11/02/2018 10:00 am - FANY Deleon at [facility] Internal Medicine - [address]/02/2019 - Zsofia Moero, FNPM85.9 Disorder of bone density and structure, unspecifiedNew Medication:Alendronate Sodium 70 mg - take one tablet by mouth once a week as directedComments:OSTEOPENIA:You should be getting at least 1200 mg of calcium and 800 IU of Vitamin D on a daily basis in your diet and/or with supplementation. Calcium citrate is the most bioavailable preparation; calcium fortified orange juice is an excellent source. It is also very important to be doing weight bearing exercises regularly.We discussed some of the risks and benefits of the currently available pharmacologic strategies.We will start you on Alledronate.Discussed effects and side effect. Your last DEXA (bone density test) was in this tearWe will schedule another one in 2 years Check out ~l_a href=~q_www.[employer] ~q_ target=~q__blank~q_~g_www.[employer]~l_/a~g_ for the section on osteoporosis - it describes the treatment options well .Follow up:keep OV in Bariatric surgery uhzmipT59.9 Anemia, unspecified
--- NOTE | 2018-06-23 20:38 | ED ---
Complex/Multi-Sys Presentation - HPI Summary HPI Summary: This patient is a 73 year old F presenting to [facility] with a chief complaint of sudden onset neck pain and CHAMBERLAIN since 05:45 this morning. Pt notes that her symptoms began after she slipped on ice, fell back, and hit her head hard on the ground while at work. The patient rates the pain 8/10 in severity. Symptoms aggravated by nothing. Symptoms alleviated by nothing. Patient reports back pain , nausea, left elbow pain, and right shoulder pain. Patient denies LOC. Pt notes that she had a surgical hernia repair on 06/18/18 and now has pain at the surgical site. Hx arthritis in neck. Pt takes ASA daily. - History Of Current Complaint Chief Complaint: EDHeadInjury Time Seen by Provider: 06/23/18 20:15 Hx Obtained From: Patient Onset/Duration: Sudden Onset, Still Present Timing: Constant Severity Currently: Moderate Severity Initially: Moderate Location: Pain At: - head, neck, left elbow, right shoulder Aggravating Factor(s): nothing Alleviating Factor(s): nothing Associated Signs And Symptoms: Positive: Headache, Nausea, Back Pain, Recent Trauma - backward fall from standing position, Other - left elbow pain, neck pain, right shoulder pain - Allergies/Home Medications Allergies/Adverse Reactions: Allergies Allergy/AdvReac Type Severity Reaction Status Date / Time atenolol Allergy Wheezing Verified 06/23/18 18:18 captopril Allergy Coughing Verified 06/23/18 18:18 ciprofloxacin Allergy tendonitis Verified 06/23/18 18:18 clonidine Allergy Dizziness/i Verified 06/23/18 18:18 nsomnia erythromycin base Allergy GI Verified 06/23/18 18:18 Upset/hives iron Allergy SEVERE GI Verified 06/23/18 18:18 UPSET nifedipine Allergy Unknown Verified 06/23/18 18:18 Reaction Details nisoldipine Allergy Agitation Verified 06/23/18 18:18 Penicillins Allergy Rash Verified 06/23/18 18:18 Sulfa (Sulfonamide Allergy Hives Verified 06/23/18 18:18 Antibiotics) PMH/Surg Hx/FS Hx/Imm Hx Endocrine/Hematology History: Denies: Hx Diabetes Cardiovascular History: Reports: Hx Angioplasty, Hx Coronary Artery Disease, Hx Hypertension Denies: Hx Pacemaker/ICD Respiratory History: Reports: Hx Asthma - SEASONAL, Hx Sleep Apnea - DOES NOT USE HER C-PAP GI History: Reports: Hx Gastroesophageal Reflux Disease, Hx Irritable Bowel, Other GI Disorders - GASTRIC BYPASS STEVAN EN Y History: Denies: Hx Dialysis, Hx Renal Disease Musculoskeletal History: Reports: Hx Arthritis - NECK, SHOULDERS, Hx Fibromyalgia, Other Musculoskeletal History - FX 2 METATARSALS RIGHT FOOT 2010 Denies: Hx Osteoporosis Sensory History: Reports: Hx Cataracts - LENS IMPLANTS 2 YRS AGO, Hx Contacts or Glasses Denies: Hx Hearing Aid Opthamlomology History: Reports: Hx Cataracts - LENS IMPLANTS 2 YRS AGO, Hx Contacts or Glasses Neurological History: Reports: Hx Migraine, Other Neuro Impairments/Disorders - FIBROMYALGIA Psychiatric History: Reports: Hx Anxiety - ON MEDICATION FOR, Hx Depression - ON MEDICATION FOR Denies: Hx Panic Disorder - Cancer History Hx Chemotherapy: No Hx Radiation Therapy: No - Surgical History Surgery Procedure, Year, and Place: HERNIA REPAIR 06/18/18, BILATERAL CATARACTS, GASTRIC BYPASS 08/2010, INTERNAL HERNIA REPAIR 09/2011, DILATED STRICTURE &10/2011 , HEART CATH 05/2007, HYSTERECTOMY 10/1980, RT OVARY REMOVED 05/1984 CHOLECYSTECTOMY 12/1993, AND CYSTOCELE REPAIR 08/1994 Hx Anesthesia Reactions: No - Immunization History Date of Tetanus Vaccine: UTD Date of Influenza Vaccine: 02/2017 Infectious Disease History: No Infectious Disease History: Denies: Traveled Outside the [place] in Last 30 Days - Family History Known Family History: Positive: Cardiac Disease, Hypertension, Diabetes - Social History Alcohol Use: None Hx Substance Use: No Substance Use Type: Reports: None Hx Tobacco Use: No Smoking Status (MU): Never Smoked Tobacco Have You Smoked in the Last Year: No Review of Systems Negative: Fever Negative: Epistaxis Positive: Nausea Positive: Arthralgia - right shoulder pain, left elbow pain, Myalgia - back pain , neck pain Positive: Headache All Other Systems Reviewed And Are Negative: Yes Physical Exam - Summary Physical Exam Summary: Appearance: Well-appearing, Well-nourished, lying in bed comfortably Skin: Warm, dry, no obvious rash Eyes: sclera anicteric, no conjunctival pallor ENT: mucous membranes moist, pharynx appears normal Neck: Supple, nontender Respiratory: Clear to auscultation, no signs of respiratory distress Cardiovascular: Normal S1, S2. No murmurs. Normal distal pulses in tibial and radial bilaterally. Abdomen: Soft, nontender, normal active bowel sounds present Musculoskeletal: Normal, Strength/ROM Intact Neurological: A&Ox3, awake and alert, mentation is normal, speech is fluent and appropriate, GCS 15 Psychiatric: affect is normal, does not appear anxious or depressed Triage Information Reviewed: Yes Vital Signs On Initial Exam: Initial Vitals Temp Pulse Resp BP Pulse Ox 98.3 F 65 16 166/80 97 06/23/18 18:16 06/23/18 18:16 06/23/18 18:16 06/23/18 18:16 06/23/18 18:16 Vital Signs Reviewed: Yes Diagnostics - Vital Signs Vital Signs Temp Pulse Resp BP Pulse Ox 06/23/18 18:16 98.3 F 65 16 166/80 97 - Laboratory Lab Statement: Any lab studies that have been ordered have been reviewed, and results considered in the medical decision making process. - CT CT Brain CT Interpretation Completed By: Radiologist Summary of CT Findings: no traumatic intracranial abnormalities. Dr. Steele has reviewed this report. CT Cervical Spine CT Interpretation Completed By: Radiologist Summary of CT Findings: no cervical spine traumatic abnormalities. Dr. Steele has reviewed this report. Complex Multi-Symp Course/Dx Course Of Treatment: This patient is a 73 year old F presenting to [facility] with a chief complaint of neck pain and CHAMBERLAIN since 05:45 this morning. Pt notes that her symptoms began after she slipped on ice, fell back, and hit her head hard on the ground while at work. The patient rates the pain 8/10 in severity. Symptoms aggravated by nothing. Symptoms alleviated by nothing. Patient reports back pain , nausea, left elbow pain, and right shoulder pain. Patient denies LOC. Pt notes that she had a surgical hernia repair on 06/18/18 and now has pain at the surgical site. Hx arthritis in neck. Pt takes ASA daily. CT Brain reveals, per radiologist, no traumatic intracranial abnormalities. CT C-Spine reveals, per radiologist, no cervical spine traumatic abnormalities. ED physician has reviewed these radiology reports. Patient will be discharged with follow up from PCP. Dx concussion and cervical sprain. The patient is agreeable with this plan. - Diagnoses Provider Diagnoses: Concussion, Cervical sprain Discharge - Sign-Out/Discharge Documenting (check all that apply): Patient Departure - discharge - Discharge Plan Condition: Stable Disposition: HOME Prescriptions: Ondansetron ODT TAB* [Zofran 4 MG Odt TAB*] 8 mg PO Q6H PRN #14 tab.odt PRN Reason: Nausea Patient Education Materials: Concussion (ED), Cervical Sprain (ED) Forms: *Work Release Referrals: Daren Root MD [Primary Care Provider] - 3 Days Additional Instructions: I expect your symptoms to persist over the next few days at least. Take OTC pain medication for headache and muscle pain, the zofran is for nausea which is very common after a blow to the head. It may take a few weeks for you to completely heal, sometimes it can be longer. - Billing Disposition and Condition Condition: STABLE Disposition: Home - Attestation Statements Document Initiated by Fco: Yes Documenting Scribe: Renate Tay Provider For Whom Fco is Documenting (Include Credential): Nate Steele MD Scribe Attestation: Renate Villeda, scribed for Nate Steele MD on 06/24/18 at 0435. Scribe Documentation Reviewed: Yes Provider Attestation: The documentation as recorded by the Renate roger accurately reflects the service I personally performed and the decisions made by Nate roland MD Status of Scribe Document: Viewed
[2018-06-23 23:07] VITALS: BP 165/82
== END 2018-06-23 23:07 | disposition home or self-care (01) ==
LOC: ED 18:01
DX: S06.0X9A Concussion with loss of consciousness of unspecified duration, initial encounter (principal); S13.4XXA Sprain of ligaments of cervical spine, initial encounter; W00.0XXA Fall on same level due to ice and snow, initial encounter; Y92.9 Unspecified place or not applicable; Y99.0 Civilian activity done for income or pay; Z79.82 Long term (current) use of aspirin; Z88.0 Allergy status to penicillin; Z88.2 Allergy status to sulfonamides; I25.10 Atherosclerotic heart disease of native coronary artery without angina pectoris; Z98.61 Coronary angioplasty status; I10 Essential (primary) hypertension; F41.9 Anxiety disorder, unspecified; F32.9 Major depressive disorder, single episode, unspecified
CPT/HCPCS: 70450; 72125; 99282

== ENCOUNTER 2018-10-09 09:22 | Emergency (ER) | payer MEDICARE, OTHER ==
[2018-10-09] MEDS ORDERED: Phenazopyridine TAB* 100 MG PO ONE (10:01)
--- NOTE | 2018-10-09 10:03 | ED ---
GI/ HPI - HPI Summary HPI Summary: This patient is a 73 year old female presenting to [facility] with a chief complaint of possible UTI since yesterday night. Patient states that she has had a UTI before and the symptoms are similar. Patient states her main complaint is the burning pain that accompanies urination. The pain is rated 9/10 in severity. Symptoms aggravated by nothing. Symptoms alleviated by nothing. Patient additionally reports hematuria, back pain. Patient denies vomiting, diarrhea. - History of Current Complaint Chief Complaint: EDUrogenitalProblems Time Seen by Provider: 10/09/18 09:34 Stated Complaint: UTI PER PT Hx Obtained From: Patient Onset/Duration: Started Hours Ago, Still Present Timing: Constant Current Severity: Moderate Pain Intensity: 9 Pain Characteristics: Burning Pain Radiates to: Back Associated Signs and Symptoms: Positive: Negative - vomiting, diarrhea, Other: - hematuria, dysuria, back pain Aggravating Factor(s): Nothing Alleviating Factor(s): Nothing - Additional Pertinent History Primary Care Physician: [id number] - Allergy/Home Medications Allergies/Adverse Reactions: Allergies Allergy/AdvReac Type Severity Reaction Status Date / Time atenolol Allergy Wheezing Verified 10/09/18 09:36 captopril Allergy Coughing Verified 10/09/18 09:36 ciprofloxacin Allergy tendonitis Verified 10/09/18 09:36 clonidine Allergy Dizziness/i Verified 10/09/18 09:36 nsomnia erythromycin base Allergy GI Verified 10/09/18 09:36 Upset/hives iron Allergy SEVERE GI Verified 10/09/18 09:36 UPSET nifedipine Allergy Unknown Verified 10/09/18 09:36 Reaction Details nisoldipine Allergy Agitation Verified 10/09/18 09:36 Penicillins Allergy Rash Verified 10/09/18 09:36 Sulfa (Sulfonamide Allergy Hives Verified 10/09/18 09:36 Antibiotics) PMH/Surg Hx/FS Hx/Imm Hx Previously Healthy: No Endocrine/Hematology History: Denies: Hx Diabetes Cardiovascular History: Reports: Hx Angioplasty, Hx Coronary Artery Disease, Hx Hypertension Denies: Hx Pacemaker/ICD Respiratory History: Reports: Hx Asthma - SEASONAL, Hx Sleep Apnea - DOES NOT USE HER C-PAP GI History: Reports: Hx Gastroesophageal Reflux Disease, Hx Irritable Bowel, Other GI Disorders - GASTRIC BYPASS STEVAN EN Y History: Denies: Hx Dialysis, Hx Renal Disease Musculoskeletal History: Reports: Hx Arthritis - NECK, SHOULDERS, Hx Fibromyalgia, Other Musculoskeletal History - FX 2 METATARSALS RIGHT FOOT 2010 Denies: Hx Osteoporosis Sensory History: Reports: Hx Cataracts - LENS IMPLANTS 2 YRS AGO, Hx Contacts or Glasses Denies: Hx Hearing Aid Opthamlomology History: Reports: Hx Cataracts - LENS IMPLANTS 2 YRS AGO, Hx Contacts or Glasses Neurological History: Reports: Hx Migraine, Other Neuro Impairments/Disorders - FIBROMYALGIA Psychiatric History: Reports: Hx Anxiety - ON MEDICATION FOR, Hx Depression - ON MEDICATION FOR Denies: Hx Panic Disorder - Cancer History Hx Chemotherapy: No Hx Radiation Therapy: No - Surgical History Surgery Procedure, Year, and Place: HERNIA REPAIR 06/18/18, BILATERAL CATARACTS, GASTRIC BYPASS 08/2010, INTERNAL HERNIA REPAIR 09/2011, DILATED STRICTURE &10/2011 , HEART CATH 05/2007, HYSTERECTOMY 10/1980, RT OVARY REMOVED 05/1984 CHOLECYSTECTOMY 12/1993, AND CYSTOCELE REPAIR 08/1994 Hx Anesthesia Reactions: No - Immunization History Date of Tetanus Vaccine: UTD Date of Influenza Vaccine: 02/2017 Infectious Disease History: No Infectious Disease History: Denies: Traveled Outside the [place] in Last 30 Days - Family History Known Family History: Positive: Cardiac Disease, Hypertension, Diabetes - Social History Lives: With Family Alcohol Use: None Hx Substance Use: No Substance Use Type: Reports: None Hx Tobacco Use: No Smoking Status (MU): Never Smoked Tobacco Have You Smoked in the Last Year: No Review of Systems Negative: Fever Negative: Vomiting, Diarrhea Positive: burning, dysuria, hematuria Positive: Other - back pain All Other Systems Reviewed And Are Negative: Yes Physical Exam - Summary Physical Exam Summary: Appearance: The patient is well-nourished in no acute distress and in no acute pain. Skin: The skin is warm and dry and skin color reflects adequate perfusion. HEENT: The head is normocephalic and atraumatic. The pupils are equal and reactive. The conjunctivae are clear and without drainage. Nares are patent and without drainage. Mouth reveals moist mucous membranes and the throat is without erythema and exudate. The external ears are intact. The ear canals are patent and without drainage. The tympanic membranes are intact. Neck: The neck is supple with full range of motion and non-tender. There are no carotid bruits. There is no neck vein distension. Respiratory: Chest is non-tender. Lungs are clear to auscultation and breath sounds are symmetrical and equal. Cardiovascular: Heart is regular rate and rhythm. There is no murmur or rub auscultated. There is no peripheral edema and pulses are symmetrical and equal. Abdomen: Mild tenderness of suprapubic area. There are normal bowel sounds heard in all four quadrants and there is no organomegaly palpated. Musculoskeletal: There is no back tenderness noted. Extremities are non-tender with full range of motion. There is good capillary refill. There is no peripheral edema or calf tenderness elicited. No CVA tenderness. Neurological: Patient is alert and oriented to person, place and time. The patient has symmetrical motor strength in all four extremities. Cranial nerves are grossly intact. Deep tendon reflexes are symmetrical and equal in all four extremities. Psychiatric: The patient has an appropriate affect and does not exhibit any anxiety or depression. Triage Information Reviewed: Yes Vital Signs On Initial Exam: Initial Vitals Temp Pulse Resp BP Pulse Ox 97.1 F 70 16 184/92 99 10/09/18 09:31 10/09/18 09:31 10/09/18 09:31 10/09/18 09:31 10/09/18 09:31 Vital Signs Reviewed: Yes Diagnostics - Vital Signs Vital Signs Temp Pulse Resp BP Pulse Ox 10/09/18 09:31 97.1 F 70 16 184/92 99 - Laboratory Lab Statement: Any lab studies that have been ordered have been reviewed, and results considered in the medical decision making process. GIGU Course/Dx - Course Course Of Treatment: Ms. Asif presents with the acute onset of dysuria and hematuria starting today. Yesterday she spent 6 hours on the riding lawnmower. She does complain of some mild back pain and points to her bilateral lumbar pelvic junction. She is mildly tender suprapubic. She is nontoxic in appearance with stable vital signs. Urine has red blood cells and white blood cells but is negative for bacteria. It's possible that on the bouncing around just caused a broken blood vessel and the hematuria is giving her symptoms. Alternatively she could have moved a kidney stone. Or it could be just UTI. I will treat her with antibiotics. She has no flank pain. Culture results will be available in a day or 2. - Diagnoses Provider Diagnoses: UTI (urinary tract infection) Discharge - Sign-Out/Discharge Documenting (check all that apply): Patient Departure Patient Received Moderate/Deep Sedation with Procedure: No - Discharge Plan Condition: Stable Disposition: HOME Prescriptions: Nitrofurantoin Macrocrystals* [Macrodantin 100 mg*] 100 mg PO BID #10 cap Phenazopyridine 200 mg (NF) [Pyridium 200 MG tab *] 200 mg PO TID #9 tab Patient Education Materials: Urinary Tract Infection in Women (ED) Referrals: Daren Root MD [Primary Care Provider] - 3 Days Additional Instructions: Return to the ED for any new or worsening symptoms. - Billing Disposition and Condition Condition: STABLE Disposition: Home - Attestation Statements Document Initiated by Fco: Yes Documenting Scribe: Kameron Higginbotham Provider For Whom Fco is Documenting (Include Credential): Nate Fontana MD Scribe Attestation: Kameron Villeda scribed for Nate Fontana MD on 10/09/18 at 1042. Scribe Documentation Reviewed: Yes Provider Attestation: The documentation as recorded by the Kameron roger accurately reflects the service I personally performed and the decisions made by Nate roland MD Status of Scribe Document: Viewed
[2018-10-09 10:14] LABS: Urine Appearance Turbid; Urine Bacteria Absent (Absent); Urine Bilirubin Negative (Negative); Urine Blood 3+ (Negative); Urine Glucose Negative (Negative); Urine Ketones Negative (Negative); Urine Nitrite Negative (Negative); Urine Protein 2+(100 mg/dL) (Negative); Urine Red Blood Cell 3+(>10/hpf) (Absent); Urine Specific Gravity 1.024 (1.010-1.030); Urine Squamous Epithelial Cell Present (Absent); Urine Urobilinogen Negative (Negative); Urine White Blood Cell 3+(>20/hpf) (Absent)
[2018-10-09 10:15] LABS: Urine Color Amber
[2018-10-09 10:38] VITALS: BP 176/89
--- NOTE | 2018-10-11 08:23 | PN ---
Progress Note - Progress Note Date of Service: 10/09/18 Note: Urine culture preliminary grew Klebsiella pneumonia Patient was placed on Macrobid prior to discharge This is likely susceptible organism We will await sensitivities
== END 2018-10-09 10:37 | disposition home or self-care (01) ==
LOC: ED 09:22
DX: N39.0 Urinary tract infection, site not specified (principal); I10 Essential (primary) hypertension; K21.9 Gastro-esophageal reflux disease without esophagitis; I25.10 Atherosclerotic heart disease of native coronary artery without angina pectoris; Z88.2 Allergy status to sulfonamides; Z88.0 Allergy status to penicillin
CPT/HCPCS: 81003; 81015; 87077; 87086; 87186; 99282; A9270-GY

== ENCOUNTER 2018-10-11 02:42 | Emergency (ER) | payer MEDICARE ==
[2018-10-11] MEDS ORDERED: cefTRIAXone VIAL(*) 1,000 MG VIAL IM ONE (02:59)
[2018-10-11] MEDS ORDERED: Morphine 4 MG/ML VIAL (1 ml) 4 MG/ML VIAL IM ONE (03:01)
[2018-10-11] MEDS ORDERED: Ketorolac INJ* 60 MG/2 ML VIAL IM ONE (03:01)
--- NOTE | 2018-10-11 03:15 | ED ---
GI/ HPI - HPI Summary HPI Summary: Pt is a 73 y/o female who presents to the ED c/o dysuria. 3 days ago she began to have dysuria, hematuria, urinary urgency, and suprapubic pain. Pt came to the ED 2 days ago and was prescribed Macrodantin and Pyridium. She reports no relief from the medications. Pts symptoms have been worsening, and the pain is now rated a 9/10 in severity. Pain with urination is described as burning. She now also c/o chills but denies any fever or flank pain. PMHx UTI. - History of Current Complaint Chief Complaint: EDUrogenitalProblems Time Seen by Provider: 10/11/18 03:03 Stated Complaint: "HAD UTI AND NOT GETTING BETTER" PER PT Hx Obtained From: Patient, Medical Records Onset/Duration: Started Days Ago - 3, Worse Since Timing: Constant Current Severity: Severe Pain Intensity: 9 Location of Pain: Suprapubic Pain Characteristics: Burning Associated Signs and Symptoms: Positive: Hematuria, Dysuria, Chills, Abdominal Pain, UTI Symptoms. Negative: Fever, Flank Pain - Additional Pertinent History Primary Care Physician: [id number] - Allergy/Home Medications Allergies/Adverse Reactions: Allergies Allergy/AdvReac Type Severity Reaction Status Date / Time atenolol Allergy Wheezing Verified 10/11/18 02:49 captopril Allergy Coughing Verified 10/11/18 02:49 ciprofloxacin Allergy tendonitis Verified 10/11/18 02:49 clonidine Allergy Dizziness/i Verified 10/11/18 02:49 nsomnia erythromycin base Allergy GI Verified 10/11/18 02:49 Upset/hives iron Allergy SEVERE GI Verified 10/11/18 02:49 UPSET nifedipine Allergy Unknown Verified 10/11/18 02:49 Reaction Details nisoldipine Allergy Agitation Verified 10/11/18 02:49 Penicillins Allergy Rash Verified 10/11/18 02:49 Sulfa (Sulfonamide Allergy Hives Verified 10/11/18 02:49 Antibiotics) PMH/Surg Hx/FS Hx/Imm Hx Endocrine/Hematology History: Denies: Hx Diabetes Cardiovascular History: Reports: Hx Angioplasty, Hx Coronary Artery Disease, Hx Hypertension Denies: Hx Pacemaker/ICD Respiratory History: Reports: Hx Asthma - SEASONAL, Hx Sleep Apnea - DOES NOT USE HER C-PAP GI History: Reports: Hx Gastroesophageal Reflux Disease, Hx Irritable Bowel, Other GI Disorders - GASTRIC BYPASS STEVAN EN Y History: Reports: Other Problems/Disorders - UTI Denies: Hx Dialysis, Hx Renal Disease Musculoskeletal History: Reports: Hx Arthritis - NECK, SHOULDERS, Hx Fibromyalgia, Other Musculoskeletal History - FX 2 METATARSALS RIGHT FOOT 2010 Denies: Hx Osteoporosis Sensory History: Reports: Hx Cataracts - LENS IMPLANTS 2 YRS AGO, Hx Contacts or Glasses Denies: Hx Hearing Aid Opthamlomology History: Reports: Hx Cataracts - LENS IMPLANTS 2 YRS AGO, Hx Contacts or Glasses Neurological History: Reports: Hx Migraine, Other Neuro Impairments/Disorders - FIBROMYALGIA Psychiatric History: Reports: Hx Anxiety - ON MEDICATION FOR, Hx Depression - ON MEDICATION FOR Denies: Hx Panic Disorder - Cancer History Hx Chemotherapy: No Hx Radiation Therapy: No - Surgical History Surgery Procedure, Year, and Place: HERNIA REPAIR 06/18/18, BILATERAL CATARACTS, GASTRIC BYPASS 08/2010, INTERNAL HERNIA REPAIR 09/2011, DILATED STRICTURE &10/2011 , HEART CATH 05/2007, HYSTERECTOMY 10/1980, RT OVARY REMOVED 05/1984 CHOLECYSTECTOMY 12/1993, AND CYSTOCELE REPAIR 08/1994 Hx Anesthesia Reactions: No - Immunization History Date of Tetanus Vaccine: UTD Date of Influenza Vaccine: 02/2017 Infectious Disease History: No Infectious Disease History: Denies: Traveled Outside the [place] in Last 30 Days - Family History Known Family History: Positive: Cardiac Disease, Hypertension, Diabetes - Social History Alcohol Use: None Hx Substance Use: No Substance Use Type: Reports: None Hx Tobacco Use: No Smoking Status (MU): Never Smoked Tobacco Have You Smoked in the Last Year: No Review of Systems Positive: Chills. Negative: Fever Positive: Abdominal Pain - suprapubic Positive: dysuria, hematuria, urgency. Negative: flank pain All Other Systems Reviewed And Are Negative: Yes Physical Exam - Summary Physical Exam Summary: Appearance: well appearing, no pain distress Skin: warm, dry, reflects adequate perfusion Head/face: normal Eyes: EOMI, KOJO ENT: mucous membranes moist Neck: supple, non-tender Respiratory: CTA, breath sounds present Cardiovascular: RRR, pulses symmetrical Abdomen: mild suprapubic tenderness, soft, no CVA tenderness Bowel Sounds: present Musculoskeletal: normal, strength/ROM intact Neuro: normal, sensory motor intact, A&Ox3 Triage Information Reviewed: Yes Vital Signs On Initial Exam: Initial Vitals Temp Pulse Resp BP Pulse Ox 98.5 F 71 16 216/92 96 10/11/18 02:46 10/11/18 02:46 10/11/18 02:46 10/11/18 02:46 10/11/18 02:46 Vital Signs Reviewed: Yes Diagnostics - Vital Signs Vital Signs Temp Pulse Resp BP Pulse Ox 10/11/18 02:46 98.5 F 71 16 216/92 96 - Laboratory Result Diagrams: 10/11/18 03:44 10/11/18 03:44 Lab Statement: Any lab studies that have been ordered have been reviewed, and results considered in the medical decision making process. Re-Evaluation - Re-Evaluation First Eval Re-Evaluation Time: 04:17 Change: Improved Comment: Pain is improved. GIGU Course/Dx - Course Course Of Treatment: Patient diagnosed with recent urinary tract infection which proved to be Klebsiella pneumoniae. Sensitivities are pending. Patient has multiple drug allergies however it was discovered that her penicillin allergy was just something reported to her as a possibility by her mother. She was given a dose of Zosyn given that Klebsiella is known to be most sensitive to this antibiotic. Her nitrofurantoin was discontinued and she was changed over to Omnicef orally. She was given ditropan and treated for discomfort here with relief and was discharged in good condition. Follow-up primary care physician. - Diagnoses Differential Diagnoses - Female: Pyelonephritis, Urinary Tract Infection, Other - Renal colic Provider Diagnoses: Acute cystitis Discharge - Sign-Out/Discharge Documenting (check all that apply): Patient Departure - Discharge Patient Received Moderate/Deep Sedation with Procedure: No - Discharge Plan Condition: Improved Disposition: HOME Prescriptions: Cefdinir [Cefdinir 300 MG CAP] 300 mg PO TID #15 cap Oxybutynin XL TAB* [Ditropan XL TAB*] 5 mg PO DAILY #10 tab.xl Patient Education Materials: Urinary Tract Infection in Women (ED) Referrals: Brandee Mayfield MD [Primary Care Provider] - Additional Instructions: Discontinue nitrofurantoin antibiotic. Stay well-hydrated. Cranberry juice may help. Continue Pyridium. Return with fever, vomiting, increased discomfort , worse or other concerns. Call in the morning to follow-up with your doctor. - Billing Disposition and Condition Condition: IMPROVED Disposition: Home - Attestation Statements Document Initiated by Fco: Yes Documenting Scribe: Monique Lemos Provider For Whom Scribe is Documenting (Include Credential): Atul Irby MD Scribe Attestation: IMonique, scribed for Atul Irby MD on 10/11/18 at 0621. Scribe Documentation Reviewed: Yes Provider Attestation: The documentation as recorded by the [email or web address] accurately reflects the service I personally performed and the decisions made by me, Atul Irby MD Status of Scribe Document: Viewed
[2018-10-11] MEDS ORDERED: Ketorolac INJ* 30 MG/ML 1 ML VIAL IV PUSH ONE (03:27)
[2018-10-11] MEDS ORDERED: Morphine 4 MG/ML VIAL (1 ml) 4 MG/ML VIAL IV ONE (03:27)
[2018-10-11] MEDS ORDERED: Piperacillin/Tazobac ADVAN(*) 3.375 GM in NS 0.9% 100 ML* 100 ML IVPB ONE (03:31)
[2018-10-11] MEDS ORDERED: Oxybutynin TAB* 5 MG PO ONE (03:41)
[2018-10-11 04:02] LABS: ABS Basophils 0.1 10^3/ul (0-0.2); ABS Eosinophils 0.2 10^3/ul (0-0.6); ABS Monocytes 0.7 10^3/ul (0-0.8); ABS Neutrophils 10.5 10^3/ul (1.5-7.7); Eosinophil % 1.4 %; Hematocrit 38 % (35-47); Hemoglobin 12.1 g/dL (12.0-16.0); Lymphocyte % 7.8 %; Mean Corpuscular HGB Conc 32 g/dL (31-36); Mean Corpuscular Hemoglobin 27 pg (27-31); Mean Corpuscular Volume 85 fL (80-97); Mean Platelet Volume 7.9 fL (7.4-10.4); Nucleated Red Blood Cells % 0.1; Platelet Count 320 10^3/uL (150-450); Red Blood Count 4.45 10^6 /uL (3.70-4.87); Red Cell Distribution Width 15 % (10.5-15); White Blood Count 12.5 10^3/uL (3.5-10.8)
[2018-10-11 04:16] LABS: BUN/Creatinine Ratio 17.1 (8-20); Blood Urea Nitrogen 20 mg/dL (6-24); CO2 Carbon Dioxide 27 mmol/L (22-32); Calcium 9.4 mg/dL (8.6-10.3); Chloride 103 mmol/L (101-111); EGFR Non-African American 45.5 (>60); Glucose 105 mg/dL (70-100); Sodium 139 mmol/L (135-145)
[2018-10-11 04:20] LABS: Anion Gap 9 mmol/L (2-11)
[2018-10-11 05:32] VITALS: BP 165/79
== END 2018-10-11 05:30 | disposition home or self-care (01) ==
LOC: ED 02:42
DX: N30.00 Acute cystitis without hematuria (principal); I25.10 Atherosclerotic heart disease of native coronary artery without angina pectoris; I10 Essential (primary) hypertension; K21.9 Gastro-esophageal reflux disease without esophagitis; Z88.1 Allergy status to other antibiotic agents; Z88.0 Allergy status to penicillin; Z88.2 Allergy status to sulfonamides; Z88.8 Allergy status to other drugs, medicaments and biological substances; Z98.84 Bariatric surgery status
CPT/HCPCS: 36415; 80048; 83605; 85025; 96361; 96372; 96374; 96375; 99282; A9270-GY; J1885; J2270; J2543

== ENCOUNTER 2019-02-02 11:45 | Emergency (ER) | payer MEDICARE ==
--- OUTSIDE RECORDS SUMMARY | 2019-02-02 12:00 | XMS REPORT | Continuity of Care Document ---
:1945 External Reference #:[id number] Author Name Brandee Mayfield MD (transmitted by agent of provider Justine Schulz) Address [address], [place] [address] Care Team Providers Name Role Phone Daren Root MD - Internal Care Team Information [place]usher [phone] Medicine Dallin Stern MD - Occupational Care Team Information [place]usher [phone] Medicine Brandee Mayfield M.D. - Family Medicine Care Team Information [place]her [phone] Problems Active Problems Provider Date Occult blood in stools Daren Root M.D.,FACP Onset: 04/13/2017 Coronary arteriosclerosis Kaden Iglesias M.D., [facility], FASNC Onset: 2014 Iron deficiency anemia Daren Root M.D.,FACP Onset: 04/01/2017 Essential hypertension Daren Root M.D.,FACP Onset: 04/01/2017 Shane-en-Y gastrojejunostomy Daren Root M.D.,FACP Onset: 04/23/2017 Note: sees Dr. Weber Major depressive disorder Daren Root M.D.,FACP Onset: 04/23/2017 Fibromyalgia Daren Root M.D.,FACP Onset: 04/23/2017 Atherosclerotic heart disease of Kaden Iglesias M.D., [facility], Onset: 2018 [place] coronary artery with FASNC unspecified angina pectoris Social History Type Date Description Comments Sex Unknown Tobacco Use Start: Unknown Never Smoked Cigarettes Smoking Status Reviewed: 01/16/19 Never Smoked Cigarettes ETOH Use Denies alcohol use ETOH Use 04/23/2017 Rarely consumes beer Tobacco Use Start: Unknown Patient has never smoked Recreational Drug Use Denies Drug Use Exercise Type/Frequency Exercises regularly Works in her yard and garden Allergies, Adverse Reactions, Alerts Active Allergies Reaction Severity Comments Date Catapres-TTS dizziness/insomnia 07/19/2013 Tenormin wheezing 07/19/2013 Capoten cough 07/19/2013 Cipro tendonitis 07/19/2013 Erythromycin 07/19/2013 Sulfa Antibiotics 07/19/2013 Nifibtine 07/19/2013 Beta Adrenergic Blockers Disabling raynauds 04/01/2016 Medications Active Medications SIG Qnty Indications Ordering Date Provider Pantoprazole Sodium 1 by mouth every 30tabs K21.9 Brandee Mayfield MD [address] Acetaminophen-Codeine one by mouth 28tabs M13.0 Brandee Mayfield MD 01/16/2019 #4 every 6 hours as 300-60mg Tablets needed for pain Prolia one sc every 6 1ml M81.0 Brandee Mayfield MD 01/16/2019 60mg/ml Soln months Prefill Syringe Ranitidine HCL take one tablet 60tabs Brandee Mayfield MD 09/17/2018 150mg by mouth daily as Tablets needed Fluticasone Propionate use 2 sprays in 16units Sadi Jamil, 05/07/2018 each nostril one [employer] 50mcg/Act Suspension time a day for 1 week, then 1 spray thereafter Phenazopyridine HCL 2 tabs po tid as 24tabs Sadi Jamli, 01/04/2018 100mg needed [employer] Tablets Blood Pressure Cuff use daily as 1units I10 Sadi Jamil, 09/29/2017 [facility] instructed to [employer] check bp Gabapentin 2 tab at night 180tabs Brandee Mayfield MD 09/15/2017 600mg Tablets Losartan Potassium 1 by mouth every 90tabs I10 Brandee Mayfield MD 08/23/2017 25mg day Tablets Simvastatin 1 by mouth every 90tabs Brandee Mayfield MD 08/25/2013 20mg Tablets day Aspir-81 1 by mouth every Kaden Dawn 08/25/[address] reta Iglesias M.D., [place] Cefdinir one tid Surekha IV , 300mg Capsules Atul Catalan M.D. Diltiazem CD 1 by mouth every 90caps Zsofia Omero, 240mg Caps day [employer] ER 24HR Diazepam 1/2 tab by mouth 45tabs H81.09 Brandee Mayfield MD 5mg Tablets two to three times a day prn vertigo Citracal 2-4 a day PO(when Unknown Tablets remembers) Multivitamin 1 by mouth every Unknown Tablets day (when she remembers) Triamterene/Hydrochlor 1 by mouth every 90caps I10 Brandee Mayfield MD othiazide day 37.5-25mg Capsules Vitamin B-12 1 by mouth every 30tabs Unknown 500mcg day( when Tablets Sub remembers) Klor-Con M10 2 by mouth twice 180tabs Brandee Mayfield MD 10Meq every day Tablets ER Cymbalta 1 by mouth every 90caps Sadi Jamil, 60mg Caps DR day [employer] Part Amitriptyline HCL 1 by mouth every 90tabs M79.7 Linoofiute Jamil, 50mg night at bedtime [employer] Tablets History Medications Doxycycline take 2 tab by 2caps Sadi Jamil, 09/19/2018 - Monohydrate mouth today [employer] 09/20/2018 100mg Capsules Omeprazole 1 by mouth every 90caps K21.9 Sadi Jamil, 09/17/2018 - 20mg mornings [employer] 01/16/[address] Medications Administered in Office Medication SIG Qnty Indications Ordering Provider Date Inj, Regadenoson, 0.1 MG Kaden Iglesias M.D., 10/08/2014 Injection [place] Technetium TC 99M Kaden Iglesias M.D., 10/08/2014 Tetrofosmin, Per Unit Dose Up [place] To 40 Millicuries Injection Depomedrol 80MG Flor Licona M.D. 05/03/2013 Injection Inj, Regadenoson, 0.1 MG Kaden Iglesias M.D., 08/08/2012 Injection [place] Aminophylline Kaden Iglesias M.D., 08/08/2012 Injection [place] Technetium TC 99M Kaden Iglesias M.D., 08/08/2012 Tetrofosmin, Per Unit Dose Up [place] To 40 Millicuries Injection Immunizations CPT Code Status Date Vaccine Lot # [id number] Given 02/06/2017 Pneumonia Vaccine [id number] Given 02/06/2017 Influenza Virus Vaccine, Quadrivalent, Split, Preservative Free Vital Signs Date Vital Result Comment 01/16/2019 3:11pm Height 65 inches 5'5" Weight 166.00 lb Heart Rate 58 /min BP Systolic Sitting 130 mmHg Lue reg cuff BP Diastolic Sitting 78 mmHg Lue reg cuff O2 % BldC Oximetry 98 % BMI (Body Mass Index) 27.6 kg/m2 12/16/2018 10:24am Height 65 inches 5'5" Weight 167.00 lb with sandals Heart Rate 66 /min BP Systolic Sitting 150 mmHg Lue reg cuff BP Diastolic Sitting 72 mmHg Lue reg cuff BP Systolic Standing 146 mmHg Lue reg cuff BP Diastolic Standing 70 mmHg Lue reg cuff Respiratory Rate 15 /min BMI (Body Mass Index) 27.8 kg/m2 Ejection Fraction 55-60% date 10/05/14 ECHO Results Test Date Facility Test Result H/L Range Note CBC Auto Diff 10/11/2018 [facility] White Blood 12.5 10^3/uL High 3.5-10.[address] [place] [address] [phone] Red Blood Count 4.45 10^6/uL Normal 3.70-4.87 Hemoglobin 12.1 g/dL Normal 12.0-16.0 Hematocrit 38 % Normal 35-47 Mean Corpuscular Volume 85 fL Normal 80-97 Mean Corpuscular Hemoglobin 27 pg Normal 27-31 Mean Corpuscular HGB Conc 32 g/dL Normal 31-36 Red Cell Distribution Width 15 % Normal 10.5-15 Platelet Count 320 10^3/uL Normal 150-450 Mean Platelet Volume 7.9 fL Normal 7.4-10.4 Abs Neutrophils 10.5 10^3/uL High 1.5-7.7 Abs Lymphocytes 1.0 10^3/uL Normal 1.0-4.8 Abs Monocytes 0.7 10^3/uL Normal 0-0.8 Abs Eosinophils 0.2 10^3/uL Normal 0-0.6 Abs Basophils 0.1 10^3/uL Normal 0-0.2 Abs Nucleated RBC 0.0 10^3/uL Granulocyte % 84.4 % Lymphocyte % 7.8 % Monocyte % 5.8 % Eosinophil % 1.4 % Basophil % 0.6 % Nucleated Red Blood Cells % 0.1 Basic Metabolic 10/11/2018 [facility] Sodium 139 mmol/L Normal 135-145 Panel [address] [place] [address] [phone] Chloride 103 mmol/L Normal 101-111 Co2 Carbon Dioxide 27 mmol/L Normal 22-32 Glucose 105 mg/dL High 70-100 Blood Urea Nitrogen 20 mg/dL Normal 6-24 Creatinine 1.17 mg/dL High 0.51-0.95 BUN/Creatinine Ratio 17.1 Normal 8-20 Calcium 9.4 mg/dL Normal 8.6-10.3 Egfr Non- 45.5 >60 Egfr 55.0 >60 1 Potassium TNP mmol/L 3.5-5.0 2 Anion Gap 9 mmol/L Normal 2-11 Laboratory test 10/11/2018 [facility] Lactic Acid 0.8 mmol/L Normal 0.5-2.0 3 finding [address] [place] [address] [phone] 1 Because ethnic data is not always readily [...] 15-29 5 Kidney failure <15 (or dialysis) 2 Specimen Hemolyzed. Result may not be valid. Unable to report test result due to hemolysis. 3 [facility] Severe Sepsis and Septic Shock Management Bundle Measure requires all lactic acids initially measuring >2.0 mmol/L be repeated. Procedures Date Code Description Status 12/16/2018 91073 EKG Tracing & Interpretation Completed 06/02/2018 [id number] Bone Mineral Density Test Completed 06/02/2018 [id number] Mammogram Completed 07/14/2016 [id number] Mammogram Completed 07/03/2016 [id number] Colonoscopy Completed 06/26/2016 [id number] Colonoscopy Completed 09/06/2013 [id number] Mammogram Completed Medical Devices Description No Information Available Encounters Type Date Location Provider Dx Diagnosis Office Visit 12/16/2018 [facility] Kaden López I25.119 Athscl heart 11:00a Of Maggy Iglesias M.D., disease of [place] FACC, FASNC cor art w unsp ang pctrs I73.00 Raynaud's syndrome without gangrene I10 Essential (primary) hypertension R94.31 Abnormal electrocardiogram [ECG] [EKG] Office Visit 11/25/2018 [facility] Internal Brandee Mayfield, I10 Essential 11:00a Medicine - Bren DAVIS (primary) hypertension Office Visit 10/13/2018 [facility] Internal Caty N30.00 Acute cystitis 11:10a Medicine - Bren Kearns M.D. without hematuria Office Visit 08/16/2018 [facility] Occupational Dallin S00.93xD Contusion of 2:02p Kody Stern MD unspecified part of head, subsequent encounter S09.90xD Unspecified injury of head, subsequent encounter Z04.2 Encounter for exam and observation following work accident Office Visit 08/01/2018 12:37p [facility] Occupational Dallin Stern, S16.1xxD Strain of Health muscle, fascia and tendon at neck level, subs S33.5xxD Sprain of ligaments of lumbar spine, subsequent encounter S39.011D Strain of muscle, fascia and tendon of abdomen, subs encntr S09.90xD Unspecified injury of head, subsequent encounter Z04.2 Encounter for exam and observation following work accident Assessments Date Code Description Provider 01/16/2019 K21.9 Gastro-esophageal reflux disease Brandee Mayfield MD without esophagitis 01/16/2019 M81.0 Age-related osteoporosis without Brandee Mayfield MD current pathological fracture 01/16/2019 M13.0 Polyarthritis, unspecified Brandee Mayfield MD 01/16/2019 H81.03 Meniere's disease, bilateral Brandee Mayfield MD 12/16/2018 I25.119 Atherosclerotic heart disease of Kaden Iglesias M.D., [place] coronary artery with [facility] 12/16/2018 I73.00 Raynaud's syndrome without gangrene Kaden Iglesias M.D. , [facility] 12/16/2018 I10 Essential (primary) hypertension Kaden Iglesias M.D., [facility] 12/16/2018 R94.31 Abnormal electrocardiogram [ECG] Kaden Iglesias M.D., [EKG] [facility] 11/25/2018 I10 Essential (primary) hypertension Brandee Mayfield MD 10/13/2018 N30.00 Acute cystitis without hematuria Caty Kearns M.D. 09/06/2018 S09.90xD Unspecified injury of head, Dallin Stern MD subsequent encounter 09/06/2018 Z04.2 Encounter for examination and Dallin Stern MD observation following work accident 08/16/2018 S00.93xD Contusion of unspecified part of Dallin Stern MD head, subsequent encounter 08/16/2018 S09.90xD Unspecified injury of head, Dallin Stern MD subsequent encounter 08/16/2018 Z04.2 Encounter for examination and Dallin Stern MD observation following work acc 08/01/2018 S16.1xxD Strain of muscle, fascia and tendon Dallin Stern MD at neck level, subsequen 08/01/2018 S33.5xxD Sprain of ligaments of lumbar spine, Dallin Stern MD subsequent encounter 08/01/2018 S39.011D Strain of muscle, fascia and tendon Dallin Stern MD of abdomen, subsequent e 08/01/2018 S09.90xD Unspecified injury of head, Dallin Stern MD subsequent encounter 08/01/2018 Z04.2 Encounter for examination and Dallin Stern MD observation following work acc Plan of Treatment Future Appointment(s):05/29/2019 8:20 am - Brand[facility] May[facility] - Brandee Mayfield MDK21.9 Gastro-esophageal reflux disease without esophagitisNew Medication:Pantoprazole Sodium 40 mg - 1 by mouth every dayComments:Discontinue meloxicam, alendronate, avoid all NSAIDs ( ibuprofen, naproxen, etc). HOLD aspirin for 2 weeks.Stop omeprazole and start pantoprazole 40 daily.If your symptoms are not better after 4 weeks, please call for a referral to GI (mail processor)M81.0 Age-related osteoporosis without current pathological fractureNew Medication:Prolia 60 mg/ml - one sc every 6 monthsComments:You will get a call from the office when the Prolia injection is ready.You can no longer take margxlcufsoR54.0 Polyarthritis, unspecifiedNew Medication:Acetaminophen-Codeine #4 300-60 mg - one by mouth every 6 hours as needed for painComments:I am prescribing a 7 day supply of acetaminophen with codeine. If it works well for you, please callfor a refill and ask for a 30 day xjspidP91.03 Meniere's disease, bilateralComments:I refilled diazepam Functional Status Description No Information Available Mental Status Description No Information Available Referrals Description No Information Available
--- NOTE | 2019-02-02 13:04 | ED ---
Abdominal Pain/Female - HPI Summary HPI Summary: Pt. is a 73 y.o female who presents to the ER for diffuse abd. pain and constipation x 1 week. Pt. has a hx of numerous abd. surgeries leading to numerous SBOs. Pt. states she has been using laxatives and enemas at home without improvement. Pt. also notes h/a and nausea today. Pt. denies fever, cp, sob, vomiting, urinary sxs. Sxs are moderate in severity. No current modifying factors. - History of Current Complaint Chief Complaint: EDAbdPain Stated Complaint: POSS BOWEL OBSTRUCTION PER PT Time Seen by Provider: 02/02/19 12:54 Hx Obtained From: Patient Pain Intensity: 8 Allergies/Adverse Reactions: Allergies Allergy/AdvReac Type Severity Reaction Status Date / Time atenolol Allergy Wheezing Verified 10/11/18 02:49 captopril Allergy Coughing Verified 10/11/18 02:49 ciprofloxacin Allergy tendonitis Verified 10/11/18 02:49 clonidine Allergy Dizziness/i Verified 10/11/18 02:49 nsomnia erythromycin base Allergy GI Verified 10/11/18 02:49 Upset/hives iron Allergy SEVERE GI Verified 10/11/18 02:49 UPSET nifedipine Allergy Unknown Verified 10/11/18 02:49 Reaction Details nisoldipine Allergy Agitation Verified 10/11/18 02:49 Penicillins Allergy Rash Verified 10/11/18 02:49 Sulfa (Sulfonamide Allergy Hives Verified 10/11/18 02:49 Antibiotics) PMH/Surg Hx/FS Hx/Imm Hx Previously Healthy: Yes Endocrine/Hematology History: Denies: Hx Diabetes Cardiovascular History: Reports: Hx Angioplasty, Hx Coronary Artery Disease, Hx Hypertension Denies: Hx Pacemaker/ICD Respiratory History: Reports: Hx Asthma - SEASONAL, Hx Sleep Apnea - DOES NOT USE HER C-PAP GI History: Reports: Hx Gastroesophageal Reflux Disease, Hx Irritable Bowel, Other GI Disorders - GASTRIC BYPASS STEVAN EN Y History: Reports: Other Problems/Disorders - UTI Denies: Hx Dialysis, Hx Renal Disease Musculoskeletal History: Reports: Hx Arthritis - NECK, SHOULDERS, Hx Fibromyalgia, Other Musculoskeletal History - FX 2 METATARSALS RIGHT FOOT 2010 Denies: Hx Osteoporosis Sensory History: Reports: Hx Cataracts - LENS IMPLANTS 2 YRS AGO, Hx Contacts or Glasses Denies: Hx Hearing Aid Opthamlomology History: Reports: Hx Cataracts - LENS IMPLANTS 2 YRS AGO, Hx Contacts or Glasses Neurological History: Reports: Hx Migraine, Other Neuro Impairments/Disorders - FIBROMYALGIA Psychiatric History: Reports: Hx Anxiety - ON MEDICATION FOR, Hx Depression - ON MEDICATION FOR Denies: Hx Panic Disorder - Cancer History Hx Chemotherapy: No Hx Radiation Therapy: No - Surgical History Surgery Procedure, Year, and Place: HERNIA REPAIR 06/18/18, BILATERAL CATARACTS, GASTRIC BYPASS 08/2010, INTERNAL HERNIA REPAIR 09/2011, DILATED STRICTURE &10/2011 , HEART CATH 05/2007, HYSTERECTOMY 10/1980, RT OVARY REMOVED 05/1984 CHOLECYSTECTOMY 12/1993, AND CYSTOCELE REPAIR 08/1994 Hx Anesthesia Reactions: No - Immunization History Date of Tetanus Vaccine: UTD Date of Influenza Vaccine: 02/2017 Infectious Disease History: No Infectious Disease History: Denies: Traveled Outside the [place] in Last 30 Days - Family History Known Family History: Positive: Cardiac Disease, Hypertension, Diabetes - Social History Occupation: Employed Full-time Lives: With Family Alcohol Use: None Hx Substance Use: No Substance Use Type: Reports: None Hx Tobacco Use: No Smoking Status (MU): Never Smoked Tobacco Have You Smoked in the Last Year: No Review of Systems Constitutional: Negative Negative: Fever, Chills Cardiovascular: Negative Negative: Palpitations, Chest Pain Respiratory: Negative Negative: Shortness Of Breath, Cough Positive: Abdominal Pain, Nausea. Negative: Vomiting, Diarrhea Genitourinary: Negative Musculoskeletal: Negative Skin: Negative Negative: Rash Positive: Headache All Other Systems Reviewed And Are Negative: Yes Physical Exam Triage Information Reviewed: Yes Vital Signs On Initial Exam: Initial Vitals Temp Pulse Resp BP Pulse Ox 97.5 F 73 18 238/95 96 02/02/19 11:49 02/02/19 11:49 02/02/19 11:49 02/02/19 11:49 02/02/19 11:49 Vital Signs Reviewed: Yes Appearance: Positive: Well-Appearing - Pt. lying in bed in NAD. Skin: Positive: Warm, Dry Head/Face: Positive: Normal Head/Face Inspection Eyes: Positive: Normal, EOMI Neck: Positive: Supple Respiratory/Lung Sounds: Positive: Clear to Auscultation, Breath Sounds Present Cardiovascular: Positive: Normal, RRR Abdomen Description: Positive: Other: - Abd. distended. Positive bowel sounds. Mild diffuse tenderness on palpation. Rectal exam performed with Jules Palomares. MICHAEL reveals no stool in the rectal vault. Neurological: Positive: Normal, CN Intact II-III Psychiatric: Positive: Affect/Mood Appropriate Diagnostics - Vital Signs Vital Signs Temp Pulse Resp BP Pulse Ox 02/02/19 11:49 97.5 F 73 18 238/95 96 - Laboratory Result Diagrams: 02/02/19 13:17 02/02/19 13:17 Lab Statement: Any lab studies that have been ordered have been reviewed, and results considered in the medical decision making process. Abdominal Pain Fem Course/Dx - Course Course Of Treatment: Pt. presenting with decreased BM, abd. pain and hx of SBO. Pt. given iv fluids and zofran. Declines pain medication. Labs at baseline. CT scan shows increase stool without acute findings per radiology. Pt. notes she did not take her BP medications today. BP elevated. Pt.'s routine BP meds ordered and BP improving. WIll dc home with mag citrate. Pt. to fu with pcp in 2 -3 days. Will return to ER if sxs change or worsen. Pt. understands and agrees with plan. - Diagnoses Differential Diagnosis: Positive: Bowel Obstruction, Constipation Provider Diagnoses: Constipation, Abdominal pain Discharge ED - Sign-Out/Discharge Documenting (check all that apply): Patient Departure Patient Received Moderate/Deep Sedation with Procedure: No - Discharge Plan Condition: Improved Disposition: HOME Patient Education Materials: Constipation (ED) Referrals: Brandee Mayfield MD [Primary Care Provider] - Additional Instructions: Call PCP today to schedule a close follow up appointment within one week Take magnesium citrate as directed Increase fluids Return to ER if symptoms change or worsen - Billing Disposition and Condition Condition: IMPROVED Disposition: Home
[2019-02-02] MEDS: NS 0.9% 1000 ML** 1,000 ML IV ONE (13:14)
[2019-02-02] MEDS: Ondansetron INJ* 2 MG/ML VIAL IV ONE ×2 (13:14→16:04)
[2019-02-02 13:32] LABS: ABS Lymphocytes 0.8 10^3/ul (1.0-4.8); ABS Monocytes 0.3 10^3/ul (0-0.8); ABS Neutrophils 2.9 10^3/ul (1.5-7.7); Eosinophil % 1.1 %; Hematocrit 36 % (35-47); Hemoglobin 11.7 g/dL (12.0-16.0); Lymphocyte % 19.5 %; Mean Corpuscular HGB Conc 33 g/dL (31-36); Mean Corpuscular Hemoglobin 28 pg (27-31); Mean Corpuscular Volume 84 fL (80-97); Mean Platelet Volume 7.5 fL (7.4-10.4); Nucleated Red Blood Cells % 0.1; Platelet Count 266 10^3/uL (150-450); Red Blood Count 4.24 10^6 /uL (3.70-4.87); Red Cell Distribution Width 17 % (10-15)
[2019-02-02 13:53] LABS: ALT 22 U/L (7-52); AST 30 U/L (13-39); Albumin 4.8 g/dL (3.2-5.2); Albumin/Globulin Ratio 2.3 (1-3); Alkaline Phosphatase 90 U/L (34-104); Anion Gap 8 mmol/L (2-11); BUN/Creatinine Ratio 13.3 (8-20); Blood Urea Nitrogen 18 mg/dL (6-24); C Reactive Protein < 1.00 mg/L (<8.01); CO2 Carbon Dioxide 28 mmol/L (22-32); Calcium 9.5 mg/dL (8.6-10.3); Chloride 103 mmol/L (101-111); EGFR African American 46.6 (>60); EGFR Non-African American 38.5 (>60); Globulin 2.1 g/dL (2-4); Glucose 101 mg/dL (70-100); Potassium 3.4 mmol/L (3.5-5.0); Sodium 139 mmol/L (135-145); Total Protein 6.9 g/dL (6.4-8.9)
[2019-02-02 14:26] LABS: Urine Appearance Clear; Urine Bilirubin Negative (Negative); Urine Blood Negative (Negative); Urine Color Colorless; Urine Glucose Negative (Negative); Urine Ketones Negative (Negative); Urine Nitrite Negative (Negative); Urine Protein Negative (Negative); Urine Specific Gravity 1.003 (1.010-1.030); Urine Urobilinogen Negative (Negative)
[2019-02-02] MEDS: Iodixanol* (CONTRAST) 320 MG/ML 100 ML SDV IV ONE (15:04)
[2019-02-02] MEDS: Acetaminophen TAB* 325 MG PO ONE (16:03)
[2019-02-02] MEDS: Losartan TAB* 25 MG PO ONE (16:04)
[2019-02-02] MEDS: Triamterene/HCTZ 37.5-25 MG* CAP PO ONE (16:07)
[2019-02-02 17:05] VITALS: BP 169/86
[2019-02-02] MEDS: Magnesium CITRATE* 300 ML BTL PO ONE (17:06)
== END 2019-02-02 17:00 | disposition home or self-care (01) ==
LOC: ED 11:45
DX: K59.00 Constipation, unspecified (principal); I25.10 Atherosclerotic heart disease of native coronary artery without angina pectoris; I10 Essential (primary) hypertension; J45.909 Unspecified asthma, uncomplicated; K21.9 Gastro-esophageal reflux disease without esophagitis; F41.9 Anxiety disorder, unspecified; F32.9 Major depressive disorder, single episode, unspecified; Z90.49 Acquired absence of other specified parts of digestive tract; I70.0 Atherosclerosis of aorta; K76.0 Fatty (change of) liver, not elsewhere classified; Z79.899 Other long term (current) drug therapy; Z88.1 Allergy status to other antibiotic agents; Z88.0 Allergy status to penicillin; Z88.2 Allergy status to sulfonamides; Z88.8 Allergy status to other drugs, medicaments and biological substances
CPT/HCPCS: 36415; 74177; 80053; 81003; 83605; 83690; 85025; 86140; 96361; 96374; 96376; 99283; A9270-GY; J2405; Q9967

== ENCOUNTER 2019-02-06 09:45 | Observation (INO) | payer MEDICARE ==
[2019-02-06] MEDS ORDERED: Aspirin 81 mg CHEW TAB* 81 MG TAB.CHEW PO ONE (10:16)
--- NOTE | 2019-02-06 10:16 | ED ---
HPI Chest Pain - HPI Summary HPI Summary: This patient is a 73 year old female presenting to [facility] with a chief complaint of chest pain. She reports sudden onset of a dull chest pressure, which feels like "someone is sitting on your chest". She states the pain radiates into bilat shoulders and reports left arm numbness for a few days. She reports nausea as well. She states she has been hot and cold. She is expressing concern of constipation/urinary retention and states hx gastric surgery. She rates her pain 7/10 in severity. Pt denies any fever, erythema of eyes, sore throat, SOB, cough, abdominal pain, vomiting, dysuria, hematuria, myalgia, edema, rash, or dizziness. - History of Current Complaint Chief Complaint: EDChestPainROMI Time Seen by Provider: 02/06/19 10:06 Hx Obtained From: Patient Onset/Duration: Started Hours Ago Pain Intensity: 7 Pain Scale Used: 0-10 Numeric Character: Dull/Aching, Pressure/Squeezing - Additional Pertinent History Primary Care Physician: [id number] - Allergy/Home Medications Allergies/Adverse Reactions: Allergies Allergy/AdvReac Type Severity Reaction Status Date / Time atenolol Allergy Wheezing Verified 10/11/18 02:49 captopril Allergy Coughing Verified 10/11/18 02:49 ciprofloxacin Allergy tendonitis Verified 10/11/18 02:49 clonidine Allergy Dizziness/i Verified 10/11/18 02:49 nsomnia erythromycin base Allergy GI Verified 10/11/18 02:49 Upset/hives iron Allergy SEVERE GI Verified 10/11/18 02:49 UPSET nifedipine Allergy Unknown Verified 10/11/18 02:49 Reaction Details nisoldipine Allergy Agitation Verified 10/11/18 02:49 Penicillins Allergy Rash Verified 10/11/18 02:49 Sulfa (Sulfonamide Allergy Hives Verified 10/11/18 02:49 Antibiotics) Home Medications: Home Medications Acetaminophen with Codeine [Acetaminophen-Cod #4 Tablet] 1 each PO Q6HR PRN 02/16 [History Confirmed 02/06/19] Calcium Citrate TAB* [Citracal TAB*] 2 - 4 tab PO DAILY 02/06/19 [History Confirmed 02/06/19] Denosumab(NF) [Prolia(NF)] 60 mg SUBCUT .EVERY 6 MONTHS 02/06/19 [History Confirmed 02/06/19] Fluticasone Propionate [24 Hour Allergy] 1 spray BOTH NARES DAILY 02/06/19 [ History Confirmed 02/06/19] Meloxicam(NF) [Mobic(NF)] 7.5 mg PO BID 02/06/19 [History Confirmed 02/06/19] Pantoprazole Sodium 40 mg PO DAILY 02/06/19 [History Confirmed 02/06/19] Phenazopyridine 200 mg (NF) [Pyridium 200 MG tab *] 200 mg PO TID PRN 02/06/19 [ History Confirmed 02/06/19] Ranitidine HCl (Nf) [Zantac] 150 mg PO DAILY PRN 02/06/19 [History Confirmed 02/16] PMH/Surg Hx/FS Hx/Imm Hx Endocrine/Hematology History: Denies: Hx Diabetes Cardiovascular History: Reports: Hx Angioplasty, Hx Coronary Artery Disease, Hx Hypertension Denies: Hx Pacemaker/ICD Respiratory History: Reports: Hx Asthma - SEASONAL, Hx Sleep Apnea - DOES NOT USE HER C-PAP GI History: Reports: Hx Gastroesophageal Reflux Disease, Hx Irritable Bowel, Other GI Disorders - GASTRIC BYPASS STEVAN EN Y History: Reports: Other Problems/Disorders - UTI Denies: Hx Dialysis, Hx Renal Disease Musculoskeletal History: Reports: Hx Arthritis - NECK, SHOULDERS, Hx Fibromyalgia, Other Musculoskeletal History - FX 2 METATARSALS RIGHT FOOT 2010 Denies: Hx Osteoporosis Sensory History: Reports: Hx Cataracts - LENS IMPLANTS 2 YRS AGO, Hx Contacts or Glasses Denies: Hx Hearing Aid Opthamlomology History: Reports: Hx Cataracts - LENS IMPLANTS 2 YRS AGO, Hx Contacts or Glasses Neurological History: Reports: Hx Migraine, Other Neuro Impairments/Disorders - FIBROMYALGIA Psychiatric History: Reports: Hx Anxiety - ON MEDICATION FOR, Hx Depression - ON MEDICATION FOR Denies: Hx Panic Disorder - Cancer History Hx Chemotherapy: No Hx Radiation Therapy: No - Surgical History Surgery Procedure, Year, and Place: HERNIA REPAIR 06/18/18, BILATERAL CATARACTS, GASTRIC BYPASS 08/2010, INTERNAL HERNIA REPAIR 09/2011, DILATED STRICTURE &10/2011 , HEART CATH 05/2007, HYSTERECTOMY 10/1980, RT OVARY REMOVED 05/1984 CHOLECYSTECTOMY 12/1993, AND CYSTOCELE REPAIR 08/1994 Hx Anesthesia Reactions: No - Immunization History Date of Tetanus Vaccine: UTD Date of Influenza Vaccine: 02/2017 Infectious Disease History: No Infectious Disease History: Denies: Traveled Outside the [place] in Last 30 Days - Family History Known Family History: Positive: Cardiac Disease, Hypertension, Diabetes - Social History Alcohol Use: None Hx Substance Use: No Substance Use Type: Reports: None Hx Tobacco Use: No Smoking Status (MU): Never Smoked Tobacco Have You Smoked in the Last Year: No Review of Systems Positive: Chills. Negative: Fever Negative: Erythema Negative: Sore Throat Positive: Chest Pain Negative: Shortness Of Breath, Cough Positive: Nausea, Other - Constipation/Urinary Retention. Negative: Abdominal Pain, Vomiting Negative: dysuria, hematuria Negative: Myalgia, Edema Negative: Rash Neurological: Other - Neg: Dizziness Positive: Numbness All Other Systems Reviewed And Are Negative: No Physical Exam - Summary Physical Exam Summary: Constitutional: Well-developed, Well-nourished, Alert. (-) Distressed Skin: Warm, Dry HENT: Normocephalic; Atraumatic Eyes: Conjunctiva normal Neck: Musculoskeletal ROM normal neck. (-) JVD, (-) Stridor, (-) Tracheal deviation Cardio: Rhythm regular, rate normal, Heart sounds normal; Intact distal pulses; The pedal pulses are 2+ and symmetric. Radial pulses are 2+ and symmetric. (-) Murmur Pulmonary/Chest wall: Effort normal. (-) Respiratory distress, (-) Wheezes, (-) Rales Abd: Soft, (-) tenderness, (-) Distension, (-) Guarding, (-) Rebound Musculoskeletal: (-) Edema Lymph: (-) Cervical adenopathy Neuro: Alert, Oriented x3 Psych: Mood and affect Normal Triage Information Reviewed: Yes Vital Signs On Initial Exam: Initial Vitals Temp Pulse Resp BP Pulse Ox 96.6 F 66 20 221/76 100 02/06/19 09:51 02/06/19 09:51 02/06/19 09:51 02/06/19 09:51 02/06/19 09:51 Vital Signs Reviewed: Yes Diagnostics - Vital Signs Vital Signs Temp Pulse Resp BP Pulse Ox 02/06/19 09:51 96.6 F 66 20 221/76 100 - Laboratory Result Diagrams: 02/06/19 10:02 02/06/19 10:02 Lab Statement: Any lab studies that have been ordered have been reviewed, and results considered in the medical decision making process. - Radiology CXR Radiology Interpretation Completed By: Radiologist Summary of Radiographic Findings: No evidence for active cardiopulmonary disease. ED provider has reviewed this report. - EKG 0944 Cardiac Rate: NL - 68 BPM EKG Rhythm: Sinus Rhythm Summary of EKG Findings: No STEMI. Chest Pain Course/Dx - Course Course Of Treatment: This patient is a 73 year old female presenting to [facility] with a chief complaint of chest pain. EKG and CXR were unremarkable. This patient will be signed out to Dr. Fontana pending hospitalist consult. - Diagnoses Provider Diagnoses: Chest pain, Constipation Discharge ED - Sign-Out/Discharge Documenting (check all that apply): Sign-Out Patient Signing out patient TO: Nate Fontana - At 1030 pending hospitalist consult. Patient Received Moderate/Deep Sedation with Procedure: No - Discharge Plan Condition: Stable Disposition: ADMITTED TO [facility] Referrals: Brandee Mayfield MD [Primary Care Provider] - - Attestation Statements Document Initiated by Scribe: Yes Documenting Scribe: Luis Angel Terrazas Provider For Whom Scribe is Documenting (Include Credential): Olivier Munoz MD Scribe Attestation: Luis Angel Villeda, scribed for Olivier Munoz MD on 02/06/19 at 1150. Status of Scribe Document: Ready
[2019-02-06 10:17] LABS: ABS Eosinophils 0.1 10^3/ul (0-0.6); ABS Lymphocytes 0.7 10^3/ul (1.0-4.8); ABS Monocytes 0.3 10^3/ul (0-0.8); ABS Neutrophils 2.4 10^3/ul (1.5-7.7); Eosinophil % 2.1 %; Hematocrit 38 % (35-47); Hemoglobin 12.7 g/dL (12.0-16.0); Lymphocyte % 20.2 %; Mean Corpuscular HGB Conc 33 g/dL (31-36); Mean Corpuscular Hemoglobin 28 pg (27-31); Mean Corpuscular Volume 84 fL (80-97); Mean Platelet Volume 7.5 fL (7.4-10.4); Platelet Count 294 10^3/uL (150-450); Red Blood Count 4.57 10^6 /uL (3.70-4.87); Red Cell Distribution Width 17 % (10-15); White Blood Count 3.5 10^3/uL (3.5-10.8)
[2019-02-06 10:23] LABS: INR 0.98 (0.82-1.09)
[2019-02-06] MEDS ORDERED: Thiamine IV 100 MG, Folic Acid IV* 1 MG, Multiple Vitamin IV ADULT* 10 ML in NS 0.9% 10... IV ONE (10:23)
[2019-02-06] MEDS: Nitroglycerin TAB 0.4 MG* 0.4 MG TAB SL ONE ×3 (10:26→19:48)
[2019-02-06 10:32] LABS: Albumin 4.6 g/dL (3.2-5.2); Albumin/Globulin Ratio 1.8 (1-3); BUN/Creatinine Ratio 12.4 (8-20); Calcium 9.5 mg/dL (8.6-10.3); EGFR African American 45.9 (>60); EGFR Non-African American 37.9 (>60); Globulin 2.6 g/dL (2-4); Potassium 3.7 mmol/L (3.5-5.0); Total Bilirubin 0.5 mg/dL (0.2-1.0); Total Protein 7.2 g/dL (6.4-8.9)
--- NOTE | 2019-02-06 10:51 | ED ---
Progress - Progress Note Progress Note: Receiving sign-out from Dr. Munoz pending Hospitalist consult. Course/Dx - Course Course Of Treatment: This patient is a 73 year old female presenting to [facility] with a chief complaint of chest pain. EKG and CXR were unremarkable. I spoke with Dr. Simms who agreed to consult on the patient. I recommended in the context of known coronary artery disease, chest pain and hypertension that he be admitted for further evaluation. - Diagnoses Provider Diagnoses: Chest pain Discharge ED - Sign-Out/Discharge Documenting (check all that apply): Patient Departure Patient Received Moderate/Deep Sedation with Procedure: No - Discharge Plan Condition: Stable Disposition: ADMITTED TO [facility] Referrals: Brandee Mayfield MD [Primary Care Provider] - - Billing Disposition and Condition Condition: STABLE Disposition: Admitted to [facility] - Attestation Statements Document Initiated by Fco: Yes Documenting Scribe: Luis Angel Terrazas Provider For Whom Fco is Documenting (Include Credential): Nate Fontana Scribatilio Attestation: ILuis Angel, scribed for Nate Fontana on 02/06/19 at 1143. Scribe Documentation Reviewed: Yes Provider Attestation: The documentation as recorded by the Luis Angel roger accurately reflects the service I personally performed and the decisions made by Nate roland Status of Scribe Document: Viewed
[2019-02-06] MEDS ORDERED: Iodixanol* (CONTRAST) 320 MG/ML 100 ML SDV IV ONE (11:22)
[2019-02-06] MEDS ORDERED: NS 0.9% 1000 ML** 1,000 ML ONE (11:31)
[2019-02-06] MEDS ORDERED: Diazepam TAB(*) 5 MG PO PRN (12:18)
[2019-02-06] MEDS ORDERED: hydrALAZINE IV* 20 MG/ML VIAL IV SLOW PU PRN ×2 (12:25→17:30)
[2019-02-06 13:13] LABS: Magnesium 2.4 mg/dL (1.9-2.7)
[2019-02-06 13:31] LABS: TSH (Thyroid Stimulating Horm) 6.64 mcIU/mL (0.34-5.60)
[2019-02-06] MEDS ORDERED: Heparin VIAL(*) 5000 UNITS/ML VIAL (FIVE THOUSAND) SUBCUT SCH (14:00)
--- NOTE | 2019-02-06 14:19 | HP ---
CC: Dr. Mayfield; Dr. Iglesias * HISTORY AND PHYSICAL: DATE OF ADMISSION: 02/06/19 PROVIDER: Michelle Sanchez NP PRIMARY CARE PROVIDER: Dr. Mayfield. ATTENDING PHYSICIAN WHILE IN THE HOSPITAL: Dr. Maureen Simms * (dictated by Michelle Sanchez NP). CHIEF COMPLAINT: 1. Chest pain. 2. Constipation. HISTORY OF PRESENT ILLNESS: The patient reports that she has had issues with constipation since the end of December. The patient reports that she has been taking prescription and [id number] medications for constipation since . She does report on 01/27/19 she had a large BM and since then she has not had any significant bowel movement. She does report last small bowel movement was on 02/03/19 and that was after taking a bottle of magnesium citrate. Due to her continued constipation, the patient presented to the emergency room for further evaluation. The patient also reports that she has had upper chest pressure that radiates to her back since Wednesday, associated with indigestion. She denies any increased chest heaviness with exertion. She denies any change in the sensation. She does report that the heaviness is constant and she rates it as 5. She does not report any change with movement, exercise or doing daily activities. The patient does report that she did receive nitroglycerin in the emergency room, which took her chest pain from a level 5 to a level 3 after the nitroglycerin. She does report that she feels like she can take a deeper breath after receiving the nitroglycerin. The patient denies any associated nausea, vomiting, or diaphoresis associated with the chest pain. She does report that her upper chest pain has been constant since Wednesday. The patient does have a known history of a lesion in her LAD. Her last cardiac catheterization was in 2007. At that time, the lesion was suspected to be 20% to 30%. The patient's last nuclear stress test was in 2014. At that time, it did not show any ischemia. She did have an echo as well in 2014. At that time, her EF was 55% to 60% with no valvular disease. Due to her chest pain, Hospital Medicine was asked to see and evaluate the patient for admission. PAST MEDICAL HISTORY: Significant for: 1. Coronary artery disease with known LAD lesion that was last in 2007 was 20% to 30%. 2. Fibromyalgia. 3. Femoral neuralgia. 4. Meniere's disease. 5. Raynaud's. 6. GERD. 7. Hypertension. 8. Asthma. 9. Anxiety. 10. Hyperlipidemia. 11. History of anemia. PAST SURGICAL HISTORY: 1. Ventral hernia repair in 2018. 2. Cataract surgery. 3. Hernia repair in 2018. 4. Gastric bypass, Shane-en-Y in 2010. 5. Cholecystectomy. 6. Hysterectomy. 7. Cardiac catheterization in 2007. 8. Left rotator cuff surgery. HOME MEDICATIONS: Include: 1. Ranitidine 150 mg p.o. daily. 2. Gabapentin 1200 mg at bedtime. 3. Losartan 25 mg p.o. daily. 4. Simvastatin 20 mg p.o. daily. 5. Klor-Con 20 mEq b.i.d. 6. Triamterene/hydrochlorothiazide 37.5/25 one tablet p.o. daily. 7. Diazepam 2.5 mg 2 to 3 times a day as needed for anxiety. 8. Pantoprazole 40 mg p.o. daily. 9. Fluticasone 1 spray both nares as needed. 10. Amitriptyline 50 mg p.o. at bedtime. 11. Cymbalta 60 mg p.o. daily. 12. Diltiazem 240 mg p.o. daily. 13. Aspirin 81 mg p.o. daily. 14. Vitamin B 500 mcg p.o. daily. 15. Multivitamin 1 tab p.o. daily. 16. Citracal 1 tablet in the morning, 2 tablets in the p.m. ALLERGIES: 1. SULFA. 2. NISOLDIPINE. 3. NIFEDIPINE. 4. IRON. 5. ATENOLOL. 6. CAPTOPRIL. 7. CIPRO. 8. CLONIDINE. 9. ERYTHROMYCIN. FAMILY HISTORY: Father with a history of an NE, at the age of 70s from his NE. Brother with a fatal NE at the age of 44. Brother with a history of diabetes, cancer. Mother with a history of colon cancer. Grandmother with a history of breast cancer. SOCIAL HISTORY: The patient has never smoked. She does report rare alcohol use. Denies any illicit drug use. She is retired. She lives with her . She ambulates independently without any assistive devices. She is a full code. Surrogate decision maker in the event she is unable to make her own decisions is her . REVIEW OF SYSTEMS: The patient does report chills. Denies any fever. She does report a 10-pound weight loss in the past 3 weeks. She does report chest heaviness rated at a 5 that radiates to her back. No change with exertion or physical activity. No associated diaphoresis. The chest pain is constant, radiated in her upper chest, associated with indigestion. No reported history of edema. No cough, hemoptysis, or shortness of breath. She does report nausea. Denies any diarrhea. She does report abdominal discomfort and states she feels bloated. She denies any gross hematuria, dysuria, urinary frequency, urgency, or pain with urination. She denies any weakness. She does report some numbness in her left foot and left lower leg x1 week. Denies any visual complaints, dysphagia, arthralgias, myalgias. Denies any rashes. She reports scabbed areas to bilateral upper arms. Denies any psychosis. She does report increased anxiety. PHYSICAL EXAMINATION GENERAL: At this time, Ms. Asif is a 73-year-old female. She is alert and oriented, resting on the stretcher in the emergency room. She is in no acute distress. VITAL SIGNS: Blood pressure is 203/94, heart rate is 63, respirations are 13, O2 saturation 97%, temperature was 96.6. HEENT: Head is atraumatic, normocephalic. Eyes: EOMs are intact. Sclerae anicteric and not pale. Oral mucosa appeared to be moist. NECK: Supple. LUNGS: Clear to auscultation bilaterally. No wheezes, rales, or rhonchi. CARDIAC: S1, S2. Regular rate and rhythm. No murmurs, rubs, or gallops. ABDOMEN: Soft, rounded. Bowel sounds are hypoactive x4. No tenderness with palpation. EXTREMITIES: She is able to move all 4 extremities with 5/5 strength. There is no clubbing or cyanosis. Pedal pulses are +2 bilaterally. Sensation is intact to bilateral lower extremities. NEUROLOGIC: She is awake, alert, oriented x3. Speech is clear. Thought process is intact. There are no gross focal deficits. Again, sensation is intact to bilateral lower extremities. SKIN: She does have multiple scabbed areas noted to bilateral upper arms and upper back. There is no surrounding erythema or signs of associated infection. DIAGNOSTIC STUDIES/LAB DATA: WBCs are 3.5, RBCs 4.57, hemoglobin 12.7, hematocrit 38, platelet count 294. INR 0.98. Sodium 139, potassium 3.7, chloride 101, carbon dioxide was 32, anion gap was 6, BUN 17, creatinine 1.37, glucose was 110, calcium 9.5. ASTs were 24, ALTs were 20, alkaline phosphatase was 96. Troponin was 0.00. She had a chest x-ray, radiologist's impression: No evidence of active cardiopulmonary disease. She did have an electrocardiogram, which showed sinus rhythm at a rate of 68. She does have T-wave inversion in V3 and V4. This appears to be consistent with prior EKG from 12/16/18 when compared in [facility]. CT abdomen and pelvis is currently pending. ASSESSMENT AND PLAN: Ms. Asif is a 73-year-old female with a past medical history significant for fibromyalgia, coronary artery disease, gastroesophageal reflux disease, hypertension, asthma, Raynaud's, Meniere's disease, anxiety, hyperlipidemia and history of anemia, who presented to the emergency room with complaints of chest pain and constipation. She will be admitted under observation for: 1. Chest pain. We will continue to trend her troponins. Her initial troponin was 0.00. Subsequent troponins are currently pending. I will repeat an EKG at 1600 today. The patient did receive 324 of aspirin in the emergency room. We will continue her on baby aspirin 81 mg p.o. daily. I will put in for a nuclear stress and transthoracic echocardiogram. The patient does have a known lesion in her LAD of 20% to 30% in 2007 after cardiac catheterization. Her last nuclear stress was in 2014. At that time, it was within normal limits with no ischemic changes. She also had an echocardiogram in 2014. At that time , she had an EF of 55% to 60% with no valvular abnormalities. Given her chest heaviness and her history and MYLES score of 4 giving her 20% risk of 14-day all- cause mortality of new or recurrent myocardial infarction or severe recurrent ischemia requiring urgent revascularization, it is reasonable to proceed with nuclear stress test and an echocardiogram at this time. The patient was not placed on a beta-marcela as the patient does have a listed allergy to ATENOLOL in the past. 2. Constipation. The patient does report constipation since the end of December. She has tried multiple home remedies and prescription remedies to relieve her constipation without results. The patient does have a CT of the abdomen and pelvis that is currently pending. We will follow up on this and treat as needed. 3. Left femoral neuralgia. We will continue on gabapentin 1200 mg at bedtime as needed. 4. Hypertension. The patient is currently hypertensive in the emergency room. We will continue her losartan and Dyazide as previously prescribed. I will also add hydralazine q.6 hours p.r.n. systolic blood pressure greater than 180. We will give her an extra dose of losartan at this time. She will also continue on Cardizem 240 as well and aspirin 81 mg. 5. Coronary artery disease. The patient does have a history of known LAD lesion that was 20% to 30% in 2007, diagnosed with cardiac catheterization. We will continue her on aspirin, diltiazem, and simvastatin as previously prescribed. 6. Anxiety. She can have diazepam 2.5 mg p.o. every 8 hours as needed for anxiety. 7. FEN: She can have a heart-healthy, no caffeine diet. 8. Code status: She is a full code. 9. DVT prophylaxis: I will place her on heparin subcu. TIME SPENT: Time spent on this admission was 60 minutes, greater than half that time was spent at the bedside reviewing events leading thus far to her hospitalization, performing physical exam, and reviewing my plan of care. I have discussed this with my attending, Dr. Maureen Simms; she is in agreement with my plan. MICHELLE SANCHEZ, SALES STOCK ASSOCIATE [id number]/CPS #: [id number] FREDI
[2019-02-06] MEDS ORDERED: Losartan TAB* 25 MG PO ONE (15:03)
[2019-02-06] MEDS: Acetaminophen TAB* 325 MG PO PRN ×2 (15:38→23:03)
--- NOTE | 2019-02-06 19:41 | PN ---
Hospitalist Progress Note Date of Service: 02/06/19 HOSPITALIST ADDENDUM STEMI called for patient with chest pain and new LBBB. Mrs Asif is a 73yo F with PMH of CAD, GERD, HTN, HLD, fibromyalgia, femoral neuralgia, s/p RnY, who presented to ED with c/o CP. Initial EKG showed no acute ischemic changes and serial troponins were negative. Around 19:10 she started to c/o chest pain again, and repeat EKG showed new LBBB. Case d/w Dr Iglesias and Dr Chi, and STEMI was called. Patient had c/o chest pain 10/10, with nausea, diaphoresis. Received HEparin 4000 units IV bolus, NTG 0.4 SLx2, with some pain relief, but BP dropped to 70/ 40. NS 2 liter bolus initiated through 2 large bore IVs, with improvement of BP up to 140/70. Patient then received Morphine 4mgx1 for CP that was still 8/10 and continued to subside. Contacted Dr Chi who recommend not loading with Brilinta, as patient had Left main disease in 2007 and required transfer to [facility]. Patient had c/o leg pain and tingling sensation during the whole episode. States symptoms on her left leg are not uncommon since she had a complicated cath through her left groin in 2007, but the symptoms on the right leg are new. She had good capillary refill on both extremities. Transferred to [facility] team and taken to quality control lab technician.
[2019-02-06] MEDS ORDERED: Nitroglycerin TAB 0.4 MG* 0.4 MG TAB ONE (19:42)
[2019-02-06] MEDS ORDERED: Heparin VIAL(*) 5000 UNITS/ML VIAL (FIVE THOUSAND) ONE (19:50)
[2019-02-06] MEDS ORDERED: Morphine 4 MG/ML VIAL (1 ml) 4 MG/ML VIAL ONE (19:53)
[2019-02-06] MEDS ORDERED: Heparin DRIP 25,000 UNITS(*) 25,000 UNITS/500 ML BAG IV SCH (20:00)
[2019-02-06] MEDS ORDERED: Heparin VIAL(*) 5000 UNITS/ML VIAL (FIVE THOUSAND) IV SCH (20:00)
[2019-02-06] MEDS ORDERED: VERAPAMIL 2.5 MG/ML 2 ML VIAL ** 5 mg/2 ml ONE (20:03)
[2019-02-06] MEDS ORDERED: Heparin(*) 1000 UNIT/ML 10 ML VIAL CATH LAB IV ONE (20:03)
[2019-02-06] MEDS ORDERED: Heparin 2 UNITS/ML IVPREMIX* 3,000 ML IV ONE (20:03)
[2019-02-06] MEDS ORDERED: nitroGLYCERIN DRIP* 25,000 MCG/250 ML BTL ONE (20:03)
[2019-02-06] MEDS ORDERED: Lidocaine 1% INJ* 10 MG/ML 30 ML SDV ONE (20:04)
[2019-02-06] MEDS ORDERED: Iodixanol 320 (CONTRAST) 100 ML SDV ONE (20:06)
[2019-02-06 20:07] LABS: ABS Lymphocytes 0.9 10^3/ul (1.0-4.8); ABS Monocytes 0.3 10^3/ul (0-0.8); Eosinophil % 1.1 %; Hematocrit 39 % (35-47); Hemoglobin 12.9 g/dL (12.0-16.0); Lymphocyte % 20.4 %; Mean Corpuscular HGB Conc 33 g/dL (31-36); Mean Corpuscular Hemoglobin 28 pg (27-31); Mean Corpuscular Volume 83 fL (80-97); Mean Platelet Volume 7.8 fL (7.4-10.4); Platelet Count 312 10^3/uL (150-450); Red Blood Count 4.63 10^6 /uL (3.70-4.87); Red Cell Distribution Width 17 % (10-15); White Blood Count 4.2 10^3/uL (3.5-10.8)
[2019-02-06] MEDS ORDERED: NS 0.9% 1000 ML** 2,000 ML IV ONE (20:07)
[2019-02-06] MEDS ORDERED: Nitroglycerin TAB 0.4 MG* 0.4 MG TAB SL ONE (20:10)
[2019-02-06] MEDS ORDERED: Nitroglycerin TAB 0.4 MG* 0.4 MG TAB SL PRN (20:10)
[2019-02-06 20:16] LABS: INR 0.97 (0.82-1.09)
[2019-02-06] MEDS: Ticagrelor* 90 MG TAB PO ONE ×2 (20:23→22:07)
[2019-02-06 20:28] LABS: Albumin 4.5 g/dL (3.2-5.2); Albumin/Globulin Ratio 1.9 (1-3); Calcium 9.6 mg/dL (8.6-10.3); EGFR Non-African American 36.4 (>60); Globulin 2.4 g/dL (2-4); Potassium 3.3 mmol/L (3.5-5.0); Total Bilirubin 0.4 mg/dL (0.2-1.0); Total Protein 6.9 g/dL (6.4-8.9)
[2019-02-06 20:31] LABS: Troponin I 0.01 ng/mL (<0.04)
[2019-02-06 20:32] LABS: Myoglobin 99.3 ng/mL (14.3-65.8)
[2019-02-06 20:33] LABS: CKMB ng/mL 4.7 ng/mL (0.6-6.3)
[2019-02-06] MEDS ORDERED: Midazolam* 1 MG/ML 5 ML VIAL (5 MG) ONE (20:42)
[2019-02-06] MEDS ORDERED: fentaNYL* 50 MCG/ML 2 ML VIAL (100 MCG VIAL) ONE (20:42)
[2019-02-06] MEDS ORDERED: KCL 10 MEQ/50 ML IVPREMIX* 10 MEQ/50 ML BAG ONE (20:45)
[2019-02-06] MEDS ORDERED: Morphine 4 MG/ML VIAL (1 ml) 4 MG/ML VIAL IV ONE (21:01)
[2019-02-06] MEDS ORDERED: Potassium Chlor TAB* 20 MEQ TAB.ER PO ONE (21:59)
[2019-02-06] MEDS: Gabapentin CAP(*) 400 MG PO SCH (22:06)
[2019-02-06] MEDS: Amitriptyline TAB* 50 MG PO SCH (22:07)
[2019-02-06] MEDS ORDERED: Al Hydrox/Mg Hydrox/Simet LIQ* 30 ML UDC PO PRN (22:11)
[2019-02-06] MEDS: Potassium Chlor TAB* 20 MEQ TAB.ER PO SCH (22:15)
[2019-02-06] MEDS ORDERED: NS 0.9% 1000 ML** 1,000 ML IV SCH (22:30)
[2019-02-07] MEDS: Acetaminophen TAB* 325 MG PO PRN ×3 (04:17→21:12)
[2019-02-07 04:38] LABS: BUN/Creatinine Ratio 13.4 (8-20); Calcium 8.8 mg/dL (8.6-10.3); EGFR Non-African American 38.9 (>60); HDL Cholesterol 48.1 mg/dL; Potassium 3.9 mmol/L (3.5-5.0)
--- NOTE | 2019-02-07 08:48 | PN ---
<Jaida Negron - Last Filed: 02/07/19 08:43> Subjective Date of Service: 02/07/19 - transient LBBB with chest pain Interval History: Patient states she has continued to experience ongoing chest pressure since last night, she adds it has been constant for several days. When asked when is was the most intense/severe she states " I haven't really paid attention". Denies dizziness, syncope, palpitations, sensation of heart racing. Medications Active Medications: Acetaminophen (Tylenol Tab*) 650 mg PO Q4H PRN PRN Reason: MILD PAIN or TEMP > 100.4 Last Admin: 02/07/19 04:17 Dose: 650 mg Al Hydrox/Mg Hydrox/Simethicone (Maalox Plus*) 30 ml PO Q4H PRN PRN Reason: INDIGESTION Last Admin: 02/06/19 22:41 Dose: 30 ml Amitriptyline HCl (Elavil Tab*) 50 mg PO BEDTIME [facility] Last Admin: 02/06/19 22:07 Dose: 50 mg Aspirin (Aspirin Ec Tab*) 81 mg PO QAM [facility] Atorvastatin Calcium (Lipitor*) 10 mg PO QAM [facility] Cyanocobalamin (Vitamin B12 Tab*) 500 mcg PO DAILY [facility] Diazepam (Valium Tab(*)) 2.5 mg PO Q8H PRN PRN Reason: ANXIETY Diltiazem HCl (Cardizem Cd Cap*) 240 mg PO QAM [facility] Duloxetine HCl (Cymbalta Cap*) 60 mg PO QAM [facility] Gabapentin (Neurontin Cap(*)) 1,200 mg PO BEDTIME [facility] Last Admin: 02/06/19 22:06 Dose: 1,200 mg Heparin Sodium (Porcine) (Heparin Vial(*)) 0 units IV .PER PROTOCOL [facility] Last Admin: 02/06/19 19:52 Dose: 4,000 units Hydralazine HCl (Apresoline Iv*) 10 mg IV SLOW PU Q6H PRN PRN Reason: Systolic Bp Greater Than:180 Last Admin: 02/06/19 17:57 Dose: 10 mg Losartan Potassium (Cozaar Tab*) 25 mg PO QAM [facility] Multivitamins (Theragran Tab*) 1 tab PO DAILY [facility] Nitroglycerin (Nitroglycerin Tab 0.4 Mg*) 0.4 mg SL Q5M PRN PRN Reason: ANGINA Pantoprazole Sodium (Protonix Tab*) 40 mg PO DAILY [facility] Potassium Chloride (Klor Con Er Tab*) 20 meq PO BID [facility] Last Admin: 02/06/19 22:15 Dose: Not Given Triamterene/HCTZ (Dyazide Cap*) 1 cap PO QAM [facility] Objective Vital Signs: Temp Pulse Resp BP Pulse Ox 98.3 F 61 12 120/48 97 02/07/19 08:00 02/07/19 08:01 02/07/19 08:01 02/07/19 08:01 02/07/19 08:01 Oxygen Devices in Use Now: None Appearance: lying in bed asleep upon entering the room, NAD, A+Ox3 Ears/Nose/Mouth/Throat: NL Teeth, Lips, Gums, Mucous Membranes Moist Neck: NL Appearance and Movements; NL JVP, Trachea Midline Respiratory: Symmetrical Chest Expansion and Respiratory Effort, Clear to Auscultation Cardiovascular: - - Normal S1, S2, RRR. +2/6 early systolic AV murmur ausculatated at left sternal border. No gallop or rub. Extremities: No Edema, - - right radial access site examined, non tender to palpation. strong radial pulse, no hematoma. Skin: No Rash or Ulcers Neurological: Alert and Oriented x 3 Lines/Tubes/Other Access: Clean, Dry and Intact Peripheral IV Laboratory Results: 02/06/19 19:50 02/07/19 04:15 INR (Anticoag Therapy) 0.97 (0.82-1.09) 02/06/19 19:50 APTT 38.0 seconds (26.0-38.0) 02/06/19 19:50 Total Bilirubin 0.40 mg/dL (0.2-1.0) 02/06/19 19:50 AST 20 U/L (13-39) 02/06/19 19:50 ALT 18 U/L (7-52) 02/06/19 19:50 Alkaline Phosphatase 89 U/L (34-104) 02/06/19 19:50 CK-MB (CK-2) 4.7 ng/mL (0.6-6.3) 02/06/19 19:50 B-Natriuretic Peptide 71 pg/mL (<=100) 02/06/19 19:50 Total Protein 6.9 g/dL (6.4-8.9) 02/06/19 19:50 Albumin 4.5 g/dL (3.2-5.2) 02/06/19 19:50 Globulin 2.4 g/dL (2-4) 02/06/19 19:50 Albumin/Globulin Ratio 1.9 (1-3) 02/06/19 19:50 Triglycerides 89 mg/dL 02/07/19 04:15 Cholesterol 100 mg/dL 02/07/19 04:15 LDL Cholesterol 34 mg/dL 02/07/19 04:15 HDL Cholesterol 48.1 mg/dL 02/07/19 04:15 TSH 6.64 mcIU/mL (0.34-5.60) H 02/06/19 10:02 02/06/19 02/06/19 02/06/19 10:02 12:44 15:52 Troponin I 0.00 0.01 0.01 02/06/19 02/06/19 02/07/19 19:20 19:50 01:58 Troponin I 0.02 0.01 0.02 02/07/19 07:45 Troponin I 0.03 Laboratory Results - last 24 hr 02/06/19 02/06/19 02/06/19 10:02 10:02 10:02 WBC 3.5 RBC 4.57 Hgb 12.7 Hct 38 MCV 84 MCH 28 MCHC 33 RDW 17 H Plt Count 294 MPV 7.5 Neut % (Auto) 69.5 Lymph % (Auto) 20.2 Sabine % (Auto) 7.7 Eos % (Auto) 2.1 Baso % (Auto) 0.5 Absolute Neuts (auto) 2.4 Absolute Lymphs (auto) 0.7 L Absolute Monos (auto) 0.3 Absolute Eos (auto) 0.1 Absolute Basos (auto) 0.0 Absolute Nucleated RBC 0.0 Nucleated RBC % 0.0 INR (Anticoag Therapy) 0.98 APTT Sodium 139 Potassium 3.7 Chloride 101 Carbon Dioxide 32 Anion Gap 6 BUN 17 Creatinine 1.37 H Est GFR ( Amer) 45.9 Est GFR (Non-Af Amer) 37.9 BUN/Creatinine Ratio 12.4 Glucose 110 H Calcium 9.5 Magnesium 2.4 Total Bilirubin 0.50 AST 24 ALT 20 Alkaline Phosphatase 96 Ammonia Total Creatine Kinase CK-MB (CK-2) Myoglobin Troponin I 0.00 B-Natriuretic Peptide Total Protein 7.2 Albumin 4.6 Globulin 2.6 Albumin/Globulin Ratio 1.8 Triglycerides Cholesterol LDL Cholesterol LDL Cholesterol Direct HDL Cholesterol Vitamin B12 405 TSH 6.64 H Blood Type Antibody Screen 02/06/19 02/06/19 02/06/19 12:44 15:52 19:20 WBC RBC Hgb Hct MCV MCH MCHC RDW Plt Count MPV Neut % (Auto) Lymph % (Auto) Sabine % (Auto) Eos % (Auto) Baso % (Auto) Absolute Neuts (auto) Absolute Lymphs (auto) Absolute Monos (auto) Absolute Eos (auto) Absolute Basos (auto) Absolute Nucleated RBC Nucleated RBC % INR (Anticoag Therapy) APTT Sodium Potassium Chloride Carbon Dioxide Anion Gap BUN Creatinine Est GFR ( Amer) Est GFR (Non-Af Amer) BUN/Creatinine Ratio Glucose Calcium Magnesium Total Bilirubin AST ALT Alkaline Phosphatase Ammonia Total Creatine Kinase CK-MB (CK-2) Myoglobin Troponin I 0.01 0.01 0.02 B-Natriuretic Peptide Total Protein Albumin Globulin Albumin/Globulin Ratio Triglycerides Cholesterol LDL Cholesterol LDL Cholesterol Direct HDL Cholesterol Vitamin B12 TSH Blood Type Antibody Screen 02/06/19 02/06/19 02/06/19 19:50 19:50 19:50 WBC 4.2 RBC 4.63 Hgb 12.9 Hct 39 MCV 83 MCH 28 MCHC 33 RDW 17 H Plt Count 312 MPV 7.8 Neut % (Auto) 70.7 Lymph % (Auto) 20.4 Sab[place] % (Auto) 7.3 Eos % (Auto) 1.1 Baso % (Auto) 0.5 Absolute Neuts (auto) 3.0 Absolute Lymphs (auto) 0.9 L Absolute Monos (auto) 0.3 Absolute Eos (auto) 0.0 Absolute Basos (auto) 0.0 Absolute Nucleated RBC 0.0 Nucleated RBC % 0.0 INR (Anticoag Therapy) 0.97 APTT 38.0 Sodium 139 Potassium 3.3 L Chloride 102 Carbon Dioxide 28 Anion Gap 9 BUN 17 Creatinine 1.42 H Est GFR ( Amer) 44.0 Est GFR (Non-Af Amer) 36.4 BUN/Creatinine Ratio 12.0 Glucose 123 H Calcium 9.6 Magnesium Total Bilirubin 0.40 AST 20 ALT 18 Alkaline Phosphatase 89 Ammonia Total Creatine Kinase 285 H CK-MB (CK-2) 4.7 Myoglobin 99.3 H Troponin I 0.01 B-Natriuretic Peptide Total Protein 6.9 Albumin 4.5 Globulin 2.4 Albumin/Globulin Ratio 1.9 Triglycerides Cholesterol LDL Cholesterol LDL Cholesterol Direct 51 HDL Cholesterol Vitamin B12 TSH Blood Type Antibody Screen 02/06/19 02/06/19 02/07/19 19:50 19:50 01:58 WBC RBC Hgb Hct MCV MCH MCHC RDW Plt Count MPV Neut % (Auto) Lymph % (Auto) Sabine % (Auto) Eos % (Auto) Baso % (Auto) Absolute Neuts (auto) Absolute Lymphs (auto) Absolute Monos (auto) Absolute Eos (auto) Absolute Basos (auto) Absolute Nucleated RBC Nucleated RBC % INR (Anticoag Therapy) APTT Sodium Potassium Chloride Carbon Dioxide Anion Gap BUN Creatinine Est GFR ( Amer) Est GFR (Non-Af Amer) BUN/Creatinine Ratio Glucose Calcium Magnesium Total Bilirubin AST ALT Alkaline Phosphatase Ammonia 48 Total Creatine Kinase CK-MB (CK-2) Myoglobin Troponin I 0.02 B-Natriuretic Peptide 71 Total Protein Albumin Globulin Albumin/Globulin Ratio Triglycerides Cholesterol LDL Cholesterol LDL Cholesterol Direct HDL Cholesterol Vitamin B12 TSH Blood Type B Positive Antibody Screen Negative 02/07/19 02/07/19 04:15 07:45 WBC RBC Hgb Hct MCV MCH MCHC RDW Plt Count MPV Neut % (Auto) Lymph % (Auto) Sabine % (Auto) Eos % (Auto) Baso % (Auto) Absolute Neuts (auto) Absolute Lymphs (auto) Absolute Monos (auto) Absolute Eos (auto) Absolute Basos (auto) Absolute Nucleated RBC Nucleated RBC % INR (Anticoag Therapy) APTT Sodium 138 Potassium 3.9 Chloride 106 Carbon Dioxide 28 Anion Gap 4 BUN 18 Creatinine 1.34 H Est GFR ( Amer) 47.0 Est GFR (Non-Af Amer) 38.9 BUN/Creatinine Ratio 13.4 Glucose 102 H Calcium 8.8 Magnesium Total Bilirubin AST ALT Alkaline Phosphatase Ammonia Total Creatine Kinase CK-MB (CK-2) Myoglobin Troponin I 0.03 B-Natriuretic Peptide Total Protein Albumin Globulin Albumin/Globulin Ratio Triglycerides 89 Cholesterol 100 LDL Cholesterol 34 LDL Cholesterol Direct HDL Cholesterol 48.1 Vitamin B12 TSH Blood Type Antibody Screen Diagnostic Imaging: [facility] 02/06/2019 per verbal report from Dr. Chi no obstructive CAD. LV gram not performed due to elevated renal function. EKG Data: 02/06/2019; Sinus rhythm with new LBBB rate 71. telemetry Sinus rhythm with IVCD rate 50-60's Assessment/Plan #1 Atypical > typical c/o chest pain with transient LBBB in the setting of hypokalemia. Troponin remains negative. Pain is constant and ongoing however, she is a poor historian. LHC 02/06/2019 did not reveal obstructive CAD. She has a + systolic AV murmur on exam await echo. Pain has been constant for several days per patient. Consider non cardiac etiologies. #2 h/o CAD per 2007 [facility]; on ASA, Statin therapy #3 + AV murmur; await echo. #4 h/o HTN current BP 139/65; continue current therapy #5 disposition pending course. Right radial access site is intact, no hematoma. Await echo. Troponin has remained negative. LHC did not reveal obstructive CAD. transient LBBB ? related to hypokalemia however, other causes should be explored. D/W Dr. Chi who agrees with above plan of care. Attending: Veto Chi <Veto Chi - Last Filed: 02/07/19 12:11> Medications Active Medications: Acetaminophen (Tylenol Tab*) 650 mg PO Q4H PRN PRN Reason: MILD PAIN or TEMP > 100.4 Last Admin: 02/07/19 09:14 Dose: 650 mg Al Hydrox/Mg Hydrox/Simethicone (Maalox Plus*) 30 ml PO Q4H PRN PRN Reason: INDIGESTION Last Admin: 02/06/19 22:41 Dose: 30 ml Amitriptyline HCl (Elavil Tab*) 50 mg PO BEDTIME [facility] Last Admin: 02/06/19 22:07 Dose: 50 mg Aspirin (Aspirin Ec Tab*) 81 mg PO QAM [facility] Last Admin: 02/07/19 09:16 Dose: 81 mg Atorvastatin Calcium (Lipitor*) 10 mg PO QAM [facility] Last Admin: 02/07/19 09:17 Dose: 10 mg Cyanocobalamin (Vitamin B12 Tab*) 500 mcg PO DAILY [facility] Last Admin: 02/07/19 09:18 Dose: 500 mcg Diazepam (Valium Tab(*)) 2.5 mg PO Q8H PRN PRN Reason: ANXIETY Last Admin: 02/07/19 09:14 Dose: 2.5 mg Diltiazem HCl (Cardizem Cd Cap*) 240 mg PO QAM [facility] Last Admin: 02/07/19 09:16 Dose: 240 mg Duloxetine HCl (Cymbalta Cap*) 60 mg PO QAM [facility] Last Admin: 02/07/19 09:15 Dose: 60 mg Enoxaparin Sodium (Lovenox(*)) 40 mg SUBCUT Q24H [facility] Last Admin: 02/07/19 10:12 Dose: 40 mg Gabapentin (Neurontin Cap(*)) 1,200 mg PO BEDTIME [facility] Last Admin: 02/06/19 22:06 Dose: 1,200 mg Hydralazine HCl (Apresoline Iv*) 10 mg IV SLOW PU Q6H PRN PRN Reason: Systolic Bp Greater Than:180 Last Admin: 02/06/19 17:57 Dose: 10 mg Losartan Potassium (Cozaar Tab*) 25 mg PO QAM [facility] Last Admin: 02/07/19 09:15 Dose: 25 mg Multivitamins (Theragran Tab*) 1 tab PO DAILY [facility] Last Admin: 02/07/19 09:15 Dose: 1 tab Nitroglycerin (Nitroglycerin Tab 0.4 Mg*) 0.4 mg SL Q5M PRN PRN Reason: ANGINA Pantoprazole Sodium (Protonix Tab*) 40 mg PO DAILY [facility] Last Admin: 02/07/19 09:16 Dose: 40 mg Potassium Chloride (Klor Con Er Tab*) 20 meq PO BID [facility] Last Admin: 02/07/19 09:17 Dose: 20 meq Sucralfate (Carafate*) 1 gm PO AC [facility] Last Admin: 02/07/19 11:28 Dose: 1 gm Triamterene/HCTZ (Dyazide Cap*) 1 cap PO QAM [facility] Last Admin: 02/07/19 09:18 Dose: 1 cap Objective Vital Signs: Temp Pulse Resp BP Pulse Ox 97.3 F 63 16 167/60 99 02/07/19 09:56 02/07/19 09:56 02/07/19 09:59 02/07/19 09:56 02/07/19 09:56 Laboratory Results: 02/06/19 19:50 02/07/19 04:15 INR (Anticoag Therapy) 0.97 (0.82-1.09) 02/06/19 19:50 APTT 38.0 seconds (26.0-38.0) 02/06/19 19:50 Total Bilirubin 0.40 mg/dL (0.2-1.0) 02/06/19 19:50 AST 20 U/L (13-39) 02/06/19 19:50 ALT 18 U/L (7-52) 02/06/19 19:50 Alkaline Phosphatase 89 U/L (34-104) 02/06/19 19:50 CK-MB (CK-2) 4.7 ng/mL (0.6-6.3) 02/06/19 19:50 B-Natriuretic Peptide 71 pg/mL (<=100) 02/06/19 19:50 Total Protein 6.9 g/dL (6.4-8.9) 02/06/19 19:50 Albumin 4.5 g/dL (3.2-5.2) 02/06/19 19:50 Globulin 2.4 g/dL (2-4) 02/06/19 19:50 Albumin/Globulin Ratio 1.9 (1-3) 02/06/19 19:50 Triglycerides 89 mg/dL 02/07/19 04:15 Cholesterol 100 mg/dL 02/07/19 04:15 LDL Cholesterol 34 mg/dL 02/07/19 04:15 HDL Cholesterol 48.1 mg/dL 02/07/19 04:15 TSH 6.64 mcIU/mL (0.34-5.60) H 02/06/19 10:02 02/06/19 02/06/19 02/06/19 10:02 12:44 15:52 Troponin I 0.00 0.01 0.01 02/06/19 02/06/19 02/07/19 19:20 19:50 01:58 Troponin I 0.02 0.01 0.02 02/07/19 07:45 Troponin I 0.03 Assessment/Plan continuing w atypical cp, negative troponins. EKG today resolution of IVCD and more prominent R precordial TW inversion, ECHO pending. Creat stable. No myocardial necrosis by trops. Wrist check FU scheduled
--- NOTE | 2019-02-07 09:02 | PN ---
Subjective Date of Service: 02/07/19 Interval History: HD#2 on 02/06 73 F with PMH of CAD, GERD, HTN, HLD, fibromyalgia, anxiety on bzd, femoral neuralgia, hx of RnY, who presented with atypical CP with transient LBBB, LHC with no dz on 02/06, and return to [facility] subsequently. Overnight pt did have vauge atypical CP described as squeezing but poor historian on other details (does it radiate, exacerbating and relieving factors) . VS sig for HTN, otherwise stable. This morning she reports no chest pain, eating breakfast, does report constipation and abdominal pain, ongoing GERD sx. Othewrwise denies SOB, CHAMBERLAIN, or MSK complaints. Objective Active Medications: Acetaminophen (Tylenol Tab*) 650 mg PO Q4H PRN PRN Reason: MILD PAIN or TEMP > 100.4 Last Admin: 02/07/19 04:17 Dose: 650 mg Al Hydrox/Mg Hydrox/Simethicone (Maalox Plus*) 30 ml PO Q4H PRN PRN Reason: INDIGESTION Last Admin: 02/06/19 22:41 Dose: 30 ml Amitriptyline HCl (Elavil Tab*) 50 mg PO BEDTIME [facility] Last Admin: 02/06/19 22:07 Dose: 50 mg Aspirin (Aspirin Ec Tab*) 81 mg PO QAM [facility] Atorvastatin Calcium (Lipitor*) 10 mg PO QAM [facility] Cyanocobalamin (Vitamin B12 Tab*) 500 mcg PO DAILY [facility] Diazepam (Valium Tab(*)) 2.5 mg PO Q8H PRN PRN Reason: ANXIETY Diltiazem HCl (Cardizem Cd Cap*) 240 mg PO QAM [facility] Duloxetine HCl (Cymbalta Cap*) 60 mg PO QAM [facility] Gabapentin (Neurontin Cap(*)) 1,200 mg PO BEDTIME [facility] Last Admin: 02/06/19 22:06 Dose: 1,200 mg Heparin Sodium (Porcine) (Heparin Vial(*)) 0 units IV .PER PROTOCOL [facility] Last Admin: 02/06/19 19:52 Dose: 4,000 units Hydralazine HCl (Apresoline Iv*) 10 mg IV SLOW PU Q6H PRN PRN Reason: Systolic Bp Greater Than:180 Last Admin: 02/06/19 17:57 Dose: 10 mg Losartan Potassium (Cozaar Tab*) 25 mg PO QAM [facility] Multivitamins (Theragran Tab*) 1 tab PO DAILY [facility] Nitroglycerin (Nitroglycerin Tab 0.4 Mg*) 0.4 mg SL Q5M PRN PRN Reason: ANGINA Pantoprazole Sodium (Protonix Tab*) 40 mg PO DAILY [facility] Potassium Chloride (Klor Con Er Tab*) 20 meq PO BID [facility] Last Admin: 02/06/19 22:15 Dose: Not Given Triamterene/HCTZ (Dyazide Cap*) 1 cap PO QAM [facility] Vital Signs - 8 hr 02/07/19 02/07/19 02/07/19 01:00 01:02 02:00 Temperature Pulse Rate 62 63 62 Respiratory 12 11 11 Rate Blood Pressure 126/52 132/61 (mmHg) O2 Sat by Pulse 95 94 95 Oximetry 02/07/19 02/07/19 02/07/19 02:01 03:00 03:01 Temperature Pulse Rate 61 60 60 Respiratory 12 15 16 Rate Blood Pressure 151/56 (mmHg) O2 Sat by Pulse 95 94 94 Oximetry 02/07/19 02/07/19 02/07/19 04:00 05:00 06:00 Temperature 97.8 F Pulse Rate 62 56 58 Respiratory 12 9 16 Rate Blood Pressure 149/65 132/62 143/62 (mmHg) O2 Sat by Pulse 93 97 96 Oximetry 02/07/19 02/07/19 02/07/19 07:00 08:00 08:01 Temperature 98.3 F Pulse Rate 59 57 61 Respiratory 11 9 12 Rate Blood Pressure 139/65 120/48 (mmHg) O2 Sat by Pulse 95 97 97 Oximetry Oxygen Devices in Use Now: None Appearance: Pleasant woman in NAD Eyes: No Scleral Icterus, PERRLA Ears/Nose/Mouth/Throat: NL Teeth, Lips, Gums Neck: NL Appearance and Movements; NL JVP Respiratory: Symmetrical Chest Expansion and Respiratory Effort, Clear to Auscultation Cardiovascular: - - 2/6 TYSHAWN S1S2 no RG Abdominal: - - Distended but soft hypoactive BS mild tender to palpation epigastric, no rebound gaurding Lymphatic: No Cervical Adenopathy Extremities: No Edema Skin: No Rash or Ulcers Neurological: Alert and Oriented x 3 Result Diagrams: 02/06/19 19:50 02/07/19 04:15 Microbiology and Other Data: Microbiology 02/06/19 22:00 Nasal Screen MRSA (PCR) - Final Nasal Mrsa Not Detected Assess/Plan/Problems-Billing Assessment: 73 F with PMH of CAD, GERD, HTN, HLD, fibromyalgia, anxiety on BZD, femoral neuralgia, hx of RnY, who presented with atypical CP with transient LBBB, neg LHC, and differential includes GI source (with known GERD, possible esophageal spasm triggered by hypOK), LBBB possible from (transient though, and now resolved). - Patient Problems (1) Atypical chest pain Current Visit: Yes Status: Acute Code(s): R07.89 - OTHER CHEST PAIN SNOMED Code(s): 101259995 Comment: - DDx as above, cardiac cath 02/06 neg, consider GI source, await echocardiogram for aortic stenosis eval - Treat hypoK, monitor closley, s/p repletion - In favor of treating with GI cocktail if reoccurs (2) GERD (gastroesophageal reflux disease) Current Visit: Yes Status: Acute Code(s): K21.9 - GASTRO-ESOPHAGEAL REFLUX DISEASE WITHOUT ESOPHAGITIS SNOMED Code(s): 903496527 Comment: - In setting of hx of RouxenY, pt with chronic gastritis - Continue PPI, trial carafate (3) CAD (coronary artery disease) Current Visit: No Status: Acute Code(s): I25.10 - ATHSCL HEART DISEASE OF [place] CORONARY ARTERY W/O ANG PCTRS SNOMED Code(s): 62425281 Comment: - No signs of AR. Continue ASA and Lipitor. 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, start Mag Citrate (5) Fibromyalgia Current Visit: No Status: Acute Code(s): M79.7 - FIBROMYALGIA SNOMED Code( s): 306992331 Comment: - Amitryptiline, Duloxetine, Willie (6) Elevated TSH Current Visit: Yes Status: Acute Code(s): R79.89 - OTHER SPECIFIED ABNORMAL FINDINGS OF BLOOD CHEMISTRY SNOMED Code(s): 553399255 Comment: - Unclear sig, check T3/T4 suspect subclinical hypothyroid (7) Hypertension Current Visit: Yes Status: Acute Code(s): I10 - ESSENTIAL (PRIMARY) HYPERTENSION SNOMED Code(s): 98032289 Comment: - Dilt, Losartan, Triamterene HCTZ (8) Anxiety Current Visit: Yes Status: Acute Code(s): F41.9 - ANXIETY DISORDER, UNSPECIFIED SNOMED Code(s): 62928232 Comment: - Conitnue home BZD (9) DVT prophylaxis Current Visit: No Status: Acute Code(s): VXR7517 - SNOMED Code(s): 459018540 Comment: - LMWH (10) Full code status Current Visit: No Status: Acute Code(s): Z78.9 - OTHER SPECIFIED HEALTH STATUS SNOMED Code(s): 986240235 Status and Disposition: Inpatient medicine on tele, pt presented from home where she lives with Changes to orders 02/07: Transfer out of ICU, Add mag Citrate and Carafate Plan: If pain reoccurs, assume GI source, trial of GI cocktail, consider EGD
[2019-02-07] MEDS ORDERED: Magnesium CITRATE* 300 ML BTL PO ONE ×2 (09:13→16:42)
[2019-02-07] MEDS: DULoxetine DR CAP* 60 MG CAP.DR PO SCH (09:15)
[2019-02-07] MEDS: Vitamin THERAPEUTIC TAB PO SCH (09:15)
[2019-02-07] MEDS: Losartan TAB* 25 MG PO SCH (09:15)
[2019-02-07] MEDS: Diltiazem CD CAP* 240 MG PO SCH (09:16)
[2019-02-07] MEDS: Aspirin EC TAB* 81 MG TAB.EC PO SCH (09:16)
[2019-02-07] MEDS: Pantoprazole TAB * 40 MG TAB PO SCH (09:16)
[2019-02-07] MEDS: Atorvastatin* 10 MG TAB PO SCH (09:17)
[2019-02-07] MEDS: Potassium Chlor TAB* 20 MEQ TAB.ER PO SCH ×2 (09:17→21:02)
[2019-02-07] MEDS: Cyanocobalamin TAB* 500 MCG PO SCH (09:18)
[2019-02-07] MEDS: Triamterene/HCTZ 37.5-25 MG* CAP PO SCH (09:18)
[2019-02-07] MEDS: Enoxaparin(*) 40 MG/0.4 ML SYR SUBCUT SCH (10:12)
[2019-02-07] MEDS: Sucralfate TAB* 1 GM PO SCH ×2 (11:28→15:55)
--- NOTE | 2019-02-07 12:09 | CONS ---
CC: Dr. Mayfield * CONSULTATION REPORT: DATE OF CONSULT: 02/06/19 ATTENDING PHYSICIAN: Veto Chi MD.* (DICTATED BY GODWIN COOK NP) PRIMARY PHYSICIAN: Dr. Mayfield. PRIMARY KETTLE SKIMMER: Dr. Iglesias. CHIEF COMPLAINT: Constipation, chest pain. HISTORY OF PRESENT ILLNESS: This is a 73-year-old female patient who follows with Dr. Iglesias of our practice. She was last seen 12/16/18 in followup for her coronary artery disease. At that time, she was clinically doing well. Apparently, she has known [id number] left main disease, 30% to 40% stenosis based on May 2018 cardiac catheterization. Apparently, historically, she is not on beta-marcela therapy due to it provoking her Raynaud disease. She states that for the past month she has been having chest pain. It has been constant and ongoing. When asked if she has had any episodes that were more severe than other, she states "I didn't really pay attention." Apparently, she presented to [facility] on 02/06/19 with complaints of chest pain and constipation. She was admitted for chest pain , rule out ACS given known coronary disease based on 2007 cardiac catheterization. While being evaluated, her isoenzymes have remained normal. Yesterday evening around 9 p.m., she apparently per report from nursing staff from the ICU developed severe crushing chest pain. A repeat ECG was obtained, which showed a new left bundle-branch block with nonspecific ST elevation in the anterior leads, thus she was taken to the cardiac label printer by Dr. Veto Chi. According to Dr. Veto Chi, I personally spoke with, cardiac catheterization did not reveal obstructive coronary artery disease. Her potassium at that time was 3.3 and has since been replaced. She continued to have ongoing chest pain that is not worse with inspiration, palpation, or movement. She denies dizziness, syncope, palpitations, sensation of heart racing, or recent illness. Last echocardiogram according to her outpatient medical records was in 2014, at that time LVEF 55% to 60%. No overt valvular heart disease. Last ischemic evaluation via Lexiscan nuclear stress test 2014 per report, no evidence of ischemia or infarction, normal LVEF, TID 0.88. Low risk ECG portion. PAST MEDICAL HISTORY: 1. CAD. 2. Fibromyalgia. 3. Major depressive disorder. 4. Hypertension. 5. Iron deficiency anemia. 6. Meniere disease. 7. Raynaud disease. 8. Sleep apnea. 9. Hypercholesterolemia. PAST SURGICAL HISTORY: Includes: 1. Cardiac catheterization in 2007. 2. Hysterectomy. 3. Right oophorectomy and adhesion lysis. 4. Cholecystectomy. 5. Ventral hernia repair. HOME MEDICATIONS: Per admission med rec. ALLERGIES: Listed include: 1. CATAPRES, which causes dizziness and insomnia. 2. TENORMIN, which causes wheezing. 3. CAPOTEN, causes cough. 4. CIPRO, tendinitis. 5. ERYTHROMYCIN, unknown. 6. SULFA, unknown. 7. BETA ADRENERGIC BLOCKERS, disabling Raynaud's. FAMILY HISTORY: Noncontributory. SOCIAL HISTORY: The patient is , lives at home with her . 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 Denies tobacco, alcohol, or drug use. REVIEW OF SYSTEMS: All systems have been reviewed and otherwise is negative except as above mentioned in the HPI. PHYSICAL EXAMINATION: Temperature 97.3, pulse 63, respirations 19, oxygenation 99% on room air, blood pressure 167/60. General: The patient is lying in bed, sitting upon entering room. Appears in no apparent distress, is alert and oriented x3. Cardiac: Normal S1, S2. Regular rate and rhythm. There is a grade 2/6 early systolic aortic valve murmur auscultated. No gallop or rub noted. Lungs: Auscultated posteriorly. No evidence of adventitious breath sounds. /GI: Abdomen is soft, nontender, nondistended. Normal bowel sounds throughout. No hepatomegaly to palpation. Extremities: No pedal edema, no clubbing, no cyanosis. Right radial access site is intact. No evidence of hematoma. Strong palpable radial pulse. Neuro: A and O x3. Appropriate affect. DIAGNOSTIC STUDIES/LAB DATA: Blood work: White count is 4.2, hemoglobin 12.9, hematocrit 39, platelets 312. INR 0.97. Sodium 138, potassium 3.9, chloride 106, carbon dioxide 28, creatinine 1.3. Troponin negative x4. LDL is 34, TSH 6.64. Abdomen and pelvis CT per radiology report negative for bowel obstruction. Chest x-ray, 02/06/19, per radiology report, no evidence of active cardiopulmonary disease. ECG reviewed 02/06/19 at 1921, the patient had newly found left bundle-branch block with nonspecific anterior ST segment changes in the setting of potassium of 3.3, rate was 71. ASSESSMENT AND PLAN: 1. Ongoing complaints of chest pain with newly found left bundle-branch block. Risk factors include known [id number] left main disease lesion noted in 2007 left heart catheterization. Isoenzymes have remained normal. The patient was taken urgently to the cardiac label printer 02/06/[address] Veto Chi and underwent left heart catheterization per Dr. Veto Chi, who I personally spoke with, there was no obstructive coronary disease. Troponin has remained normal. New left bundle-branch block occurred in the setting of hypokalemia. Since then potassium has been replaced. She has a 2/6 systolic aortic valve murmur auscultated. Echocardiogram is pending. She likely has mild aortic stenosis, would recommend exploring noncardiac causes of chest pain. Pain is constant and ongoing despite negative enzymes. 2. Nonobstructive coronary artery disease, continue aspirin therapy. Recommend keeping LDL less than 70. In the past, she was intolerant to beta- marcela therapy according to outpatient medical records. 3. Abnormal physical exam, suggestive of aortic stenosis. We will check echocardiogram and reevaluate. 4. History of hypertension. Recommend keeping blood pressure less than 140/90. 5. Disposition: Pending course. The patient is full code. The patient was seen and examined 02/06/19 in urgent consultation by Dr. Veto Chi. He has personally seen and examined the patient and agrees with the above assessment and plan. Thank you for this kind consultation. We will await echocardiogram and reevaluate. GODWIN COOK NP [id number]/[facility] #: [id number] I agree with assessment and plan MTDD
--- NOTE | 2019-02-07 12:56 | ECHO ---
*[facility]* [place] [address] Fax #: [phone] Transthoracic Echocardiogram Patient: Charlotte Asif : 1945 Study Date: 02/07/2019 Age: 73 Gender: F HR: 62 bpm Height: 65 in /165.1 cm BSA: 1.79 m^2 Weight: 158.7 lb /72.1 kg BMI: 26.5 kg/m^2 *Installation Supervisor: * Chayo Castillo [facility] *Referring Physician: * Michelle Sanchez *Reading Physician: * Freddy Carter MD Indications: Chest Pain, unspecified. History: Asthma,anemia,Raynaud's,Meniere's,GERD,fibromyalgia. Coronary artery disease. Risk factors: Hypertension. Conclusions Summary: - Left ventricle: Systolic function is normal. The estimated ejection fraction is 55-60%. Wall motion is normal; there are no regional wall motion abnormalities. - Right ventricle: Systolic function is normal. - Mitral valve: There is no evidence of stenosis. There is no significant regurgitation. - Aortic valve: There is no evidence of stenosis. There is no significant regurgitation. - Tricuspid valve: There is physiologic regurgitation. - Pericardium, extracardiac: There is no pericardial effusion. Study data: Transthoracic echocardiogram. Procedure: Transthoracic echocardiography was performed. Image quality was good. Complete 2D, spectral Doppler, and color flow Doppler. Patient status: Inpatient. Patient room number: 444-2. Rhythm: Normal sinus rhythm. Findings Left ventricle: The cavity size is normal. Wall thickness is mildly increased. Systolic function is normal. The estimated ejection fraction is 55-60%. Wall motion is normal; there are no regional wall motion abnormalities. Doppler parameters are consistent with abnormal left ventricular relaxation (grade 1 diastolic dysfunction). Right ventricle: Well visualized. The cavity size is normal. Wall thickness is normal. Systolic function is normal. Ventricular septum: Well visualized. Left atrium: Well visualized. The atrium is normal in size. Right atrium: Well visualized. The atrium is normal in size. Atrial septum: Well visualized. Mitral valve: Well visualized. The leaflets are mildly thickened. No echocardiographic evidence for prolapse. There is no evidence of stenosis. There is no significant regurgitation. Aortic valve: Well visualized. The valve is trileaflet. The leaflets are normal thickness. There is no evidence of stenosis. There is no significant regurgitation. Tricuspid valve: Well visualized. The leaflets are normal thickness. There is no evidence of stenosis. There is physiologic regurgitation. Pulmonic valve: Well visualized. The leaflets are normal thickness. There is no evidence of stenosis. There is no significant regurgitation. Aorta: The aorta is well visualized and normal size. The aortic root appears normal. The aortic arch appears normal. Pericardium: There is no pericardial effusion. No evidence of pleural fluid accumulation. Pulmonary arteries: Not well visualized. Systemic veins: Not well visualized. Measurements Left ventricle Value Ref Right atrium Value Ref ARNULFO, LAX 3.8 cm 3.8 - SI dim, ES 5.1 cm 3.4 - 5.3 5.2 ML dim, ES, A4C (L) 2.5 cm 2.6 - 4.4 ESD, LAX 2.5 cm 2.2 - SI dim, ES, A4C 5.1 cm 3.4 - 5.3 3.5 SI dim/bsa, ES, A4C 2.8 cm/m^2 1.9 - 3.1 FS, LAX 34 % 27 - 45 PW, ED, LAX (H) 1.2 cm 0.6 - Aortic valve Value Ref 0.9 Adrien diam, ED 1.6 cm --------- FS 34 % 27 - 45 Adrien diam/bsa, ED 0.9 cm/m^2 --------- Mid-wall FS 13 % -------- Peak v, S 1.78 m/sec --------- PW, ED (H) 1.2 cm 0.6 - VTI, S 41.4 cm --------- 0.9 Mean grad, S 6.0 mm Hg --------- PW/ID, ED 0.32 -------- Peak grad, S 13.0 mm Hg --------- E', lat adrien, TDI (L) 4.9 cm/sec >=10.0 LVOT/AV, VTI ratio 0.79 - -------- E/e', lat adrien, TDI 13 -------- E', med adrien, TDI 8.4 cm/sec >=7.0 Mitral valve Value R ef E/e', med adrien, TDI 8 -------- Peak E 0.66 m/sec ---- ----- E', avg, TDI 6.7 cm/sec -------- Peak A 1.02 m/sec ---- ----- E/e', avg, TDI 10 <=14 Decel time 264 ms - -------- Peak E/A ratio 0.6 --------- LVOT Value Ref Peak miles, S 1.17 m/sec -------- Pulmonic valve Value Ref VTI, S 32.8 cm -------- Peak v, S 1.03 m/sec --------- Peak grad, S 5 mm Hg -------- Peak grad, S 4.0 mm Hg --------- Mean grad, S 3 mm Hg -------- Aortic root Value Ref Ventricular septum Value Ref Root diam 3.1 cm <4.0 IVS, ED (H) 1.0 cm 0.6 - Root max diam, ED 3.1 cm <4.0 0.9 Aortic arch Value Ref Right ventricle Value Ref Arch diam 2.7 cm --------- ARNULFO, LAX 2.6 cm -------- ARNULFO minor ax, A4C 2.7 cm 1.9 - Decending aorta Value Ref mid 3.5 Chava peak miles 0.48 m/sec --------- Left atrium Value Ref ML dim, A4C 4.2 cm -------- SI dim, A4C 5.4 cm -------- Vol/bsa, ES, 1-p 17 ml/m^2 11 - 40 A4C Vol/bsa, ES, A/L 19 ml/m^2 16 - 34 Legend: (L) and (H) maribeth values outside specified reference range. Prepared and electronically signed by Freddy Carter MD 02/07/2019 12:55
--- NOTE | 2019-02-07 16:37 | CATH ---
CC: Dr. Mayfield; Dr. Iglesias CATH REPORT: DATE OF PROCEDURE: 02/06/19 PRIMARY CARE PHYSICIAN: Dr. Mayfield. LICENSED FUNERAL DIRECTOR AND EMBALMER: Dr. Iglesias. PROCEDURES: Right radial artery access, bilateral selective coronary cineangiography. HISTORY: A 73-year-old woman with history of insignificant left main disease in 2008, admitted with atypical chest pain and GI symptoms. While in the hospital, she developed severe crushing precordial chest pain and developed new left bundle branch block compared to a few hours previously. Because o f the new left bundle branch block and severe chest pain and history of insignificant left main disea se, she underwent emergent catheterization. PROCEDURE ACCESS: Right radial artery sheath 6F slender. MEDICATIONS: 1. Subcu lidocaine. 2. IV Versed. 3. IV fentanyl. 4. Heparin 4000 units. 5. Nitroglycerin 300 mcg. 6. Verapamil 3 mg IA. 7. Potassium 10 mEq IV over 1 hour. DIAGNOSTIC CATHETERS: 5FL 3.5, 5FR 4. HEMODYNAMICS: Initial AO 105/54, final BP 157/72. ANGIOGRAPHY: Right radial artery: It is relatively small in diameter without stenosis, there is prob able spasm at the catheter tip, easily traversed with a Wholey wire. Left main: The left main is calcified, but has no significant stenosis, there was no dampening. LAD: The LAD extends past the apex, it supplies a large first diagonal, the LAD has heavy proximal c alcification, the diagonal and LAD have scattered minor luminal irregularity without significant sten osis. Circumflex: The circumflex is moderate, retroflexed with a small to moderate ramus, supplies a small marginal, and distally 2 small posterolaterals, the circumflex has scattered mild luminal irregulari ty without significant stenosis. RCA: The RCA is heavily calcified, has luminal irregularity with at most 30% mid stenosis. The PDA is large followed by several smaller and then 2 larger posterolaterals, RCA has an extensive distribu tion. The RCA has no significant stenosis. CONCLUSION: 1. No significant obstructive coronary artery disease with diffuse nonobstructive plaquing. 2. LV gram not done due to reduced creatinine clearance. 3. Successful right radial artery access. [id number]/[facility] #: [id number]
[2019-02-07] MEDS ORDERED: Ondansetron INJ* 2 MG/ML VIAL IV PRN (20:23)
[2019-02-07] MEDS: Gabapentin CAP(*) 400 MG PO SCH (21:02)
[2019-02-07] MEDS: Amitriptyline TAB* 50 MG PO SCH (21:02)
[2019-02-08 06:19] LABS: Hematocrit 37 % (35-47); Mean Corpuscular HGB Conc 33 g/dL (31-36); Mean Corpuscular Hemoglobin 28 pg (27-31); Mean Corpuscular Volume 84 fL (80-97); Mean Platelet Volume 7.8 fL (7.4-10.4); Platelet Count 311 10^3/uL (150-450); Red Blood Count 4.34 10^6 /uL (3.70-4.87); Red Cell Distribution Width 17 % (10-15); White Blood Count 5.6 10^3/uL (3.5-10.8)
[2019-02-08 06:32] LABS: BUN/Creatinine Ratio 14.2 (8-20); Calcium 9.3 mg/dL (8.6-10.3); EGFR African American 44.4 (>60); EGFR Non-African American 36.7 (>60); Potassium 4.6 mmol/L (3.5-5.0)
[2019-02-08 07:09] LABS: Free T4 0.93 ng/dL (0.61-1.12)
[2019-02-08] MEDS: Cyanocobalamin TAB* 500 MCG PO SCH (07:50)
[2019-02-08] MEDS: Vitamin THERAPEUTIC TAB PO SCH (07:50)
[2019-02-08] MEDS: Potassium Chlor TAB* 20 MEQ TAB.ER PO SCH (07:50)
[2019-02-08] MEDS: Losartan TAB* 25 MG PO SCH (07:50)
[2019-02-08] MEDS: Diltiazem CD CAP* 240 MG PO SCH (07:50)
[2019-02-08] MEDS: Pantoprazole TAB * 40 MG TAB PO SCH (07:50)
[2019-02-08] MEDS: Triamterene/HCTZ 37.5-25 MG* CAP PO SCH (07:51)
[2019-02-08] MEDS: Atorvastatin* 10 MG TAB PO SCH (07:51)
[2019-02-08] MEDS: DULoxetine DR CAP* 60 MG CAP.DR PO SCH (07:51)
[2019-02-08] MEDS: Acetaminophen TAB* 325 MG PO PRN (07:51)
[2019-02-08] MEDS: Aspirin EC TAB* 81 MG TAB.EC PO SCH (07:51)
[2019-02-08] MEDS: Sucralfate TAB* 1 GM PO SCH ×2 (07:51→10:57)
[2019-02-08 07:55] VITALS: BP 169/58
--- NOTE | 2019-02-08 08:55 | PN ---
Subjective Date of Service: 02/08/19 Interval History: HD#3 on 02/08 73 F with PMH of CAD, GERD, HTN, HLD, fibromyalgia, anxiety on bzd, femoral neuralgia, hx of RnY, who presented with atypical CP with transient LBBB, LHC with no dz on 02/06, and return to [facility] subsequently. Overnight no acute events, has had some small BM, no further CP, VSS Likely stable for d/c, labs K 4.6, she would like GI referral and work note on realse but otherwise feeling back to normal Objective Active Medications: Acetaminophen (Tylenol Tab*) 650 mg PO Q4H PRN PRN Reason: MILD PAIN or TEMP > 100.4 Last Admin: 02/08/19 07:51 Dose: 650 mg Al Hydrox/Mg Hydrox/Simethicone (Maalox Plus*) 30 ml PO Q4H PRN PRN Reason: INDIGESTION Last Admin: 02/06/19 22:41 Dose: 30 ml Amitriptyline HCl (Elavil Tab*) 50 mg PO BEDTIME [facility] Last Admin: 02/07/19 21:02 Dose: 50 mg Aspirin (Aspirin Ec Tab*) 81 mg PO QAM [facility] Last Admin: 02/08/19 07:51 Dose: 81 mg Atorvastatin Calcium (Lipitor*) 10 mg PO QAM [facility] Last Admin: 02/08/19 07:51 Dose: 10 mg Cyanocobalamin (Vitamin B12 Tab*) 500 mcg PO DAILY [facility] Last Admin: 02/08/19 07:50 Dose: 500 mcg Diazepam (Valium Tab(*)) 2.5 mg PO Q8H PRN PRN Reason: ANXIETY Last Admin: 02/07/19 09:14 Dose: 2.5 mg Diltiazem HCl (Cardizem Cd Cap*) 240 mg PO QAM [facility] Last Admin: 02/08/19 07:50 Dose: 240 mg Duloxetine HCl (Cymbalta Cap*) 60 mg PO QAM [facility] Last Admin: 02/08/19 07:51 Dose: 60 mg Enoxaparin Sodium (Lovenox(*)) 40 mg SUBCUT Q24H [facility] Last Admin: 02/07/19 10:12 Dose: 40 mg Gabapentin (Neurontin Cap(*)) 1,200 mg PO BEDTIME [facility] Last Admin: 02/07/19 21:02 Dose: 1,200 mg Hydralazine HCl (Apresoline Iv*) 10 mg IV SLOW PU Q6H PRN PRN Reason: Systolic Bp Greater Than:180 Last Admin: 02/06/19 17:57 Dose: 10 mg Losartan Potassium (Cozaar Tab*) 25 mg PO QAM [facility] Last Admin: 02/08/19 07:50 Dose: 25 mg Multivitamins (Theragran Tab*) 1 tab PO DAILY [facility] Last Admin: 02/08/19 07:50 Dose: 1 tab Nitroglycerin (Nitroglycerin Tab 0.4 Mg*) 0.4 mg SL Q5M PRN PRN Reason: ANGINA Ondansetron HCl (Zofran Inj*) 4 mg IV Q6H PRN PRN Reason: NAUSEA Last Admin: 02/07/19 21:02 Dose: 4 mg Pantoprazole Sodium (Protonix Tab*) 40 mg PO DAILY [facility] Last Admin: 02/08/19 07:50 Dose: 40 mg Potassium Chloride (Klor Con Er Tab*) 20 meq PO BID [facility] Last Admin: 02/08/19 07:50 Dose: 20 meq Sucralfate (Carafate*) 1 gm PO AC [facility] Last Admin: 02/08/19 07:51 Dose: 1 gm Triamterene/HCTZ (Dyazide Cap*) 1 cap PO QAM [facility] Last Admin: 02/08/19 07:51 Dose: 1 cap Vital Signs - 8 hr 02/08/19 02/08/19 03:13 07:25 Temperature 97.8 F 97.9 F Pulse Rate 62 63 Respiratory 20 20 Rate Blood Pressure 148/52 169/58 (mmHg) O2 Sat by Pulse 98 99 Oximetry Oxygen Devices in Use Now: None Appearance: Pleasant woman NAD Eyes: No Scleral Icterus Ears/Nose/Mouth/Throat: NL Teeth, Lips, Gums Neck: NL Appearance and Movements; NL JVP Respiratory: Symmetrical Chest Expansion and Respiratory Effort, Clear to Auscultation Cardiovascular: - - 1/6 TYSHAWN Abdominal: NL Sounds; No Tenderness; No Distention, No Hepatosplenomegaly Lymphatic: No Cervical Adenopathy Extremities: No Edema Skin: No Rash or Ulcers Neurological: Alert and Oriented x 3 Result Diagrams: 02/08/19 05:51 02/08/19 05:51 Microbiology and Other Data: Microbiology 02/06/19 22:00 Nasal Screen MRSA (PCR) - Final Nasal Mrsa Not Detected Assess/Plan/Problems-Billing Assessment: 73 F with PMH of CAD, GERD, HTN, HLD, fibromyalgia, anxiety on BZD, femoral neuralgia, hx of RnY, who presented with atypical CP with transient LBBB, neg LHC, and differential includes GI source (with known GERD, possible esophageal spasm triggered by hypOK), LBBB possible from (transient though, and now resolved). - Patient Problems (1) Atypical chest pain Current Visit: Yes Status: Acute Code(s): R07.89 - OTHER CHEST PAIN SNOMED Code(s): 111178723 Comment: - DDx as above, cardiac cath 02/06 neg, echo reassuring, consider GI source, refer to outpt GI on d/c - Treat hypoK, monitor closley, s/p repletion - In favor of treating with GI cocktail if reoccurs (2) GERD (gastroesophageal reflux disease) Current Visit: Yes Status: Acute Code(s): K21.9 - GASTRO-ESOPHAGEAL REFLUX DISEASE WITHOUT ESOPHAGITIS SNOMED Code(s): 775928043 Comment: - In setting of hx of RouxenY, pt with chronic gastritis - Continue PPI, trial carafate (3) CAD (coronary artery disease) Current Visit: No Status: Acute Code(s): I25.10 - ATHSCL HEART DISEASE OF [place] CORONARY ARTERY W/O ANG PCTRS SNOMED Code(s): 34869883 Comment: - No signs of MD. Continue ASA and Lipitor. 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, response good with mag citrate (5) Fibromyalgia Current Visit: No Status: Acute Code(s): M79.7 - FIBROMYALGIA SNOMED Code( s): 079050553 Comment: - Amitryptiline, Duloxetine, Willie (6) Elevated TSH Current Visit: Yes Status: Acute Code(s): R79.89 - OTHER SPECIFIED ABNORMAL FINDINGS OF BLOOD CHEMISTRY SNOMED Code(s): 648332541 Comment: - C/w Subclinical (7) Hypertension Current Visit: Yes Status: Acute Code(s): I10 - ESSENTIAL (PRIMARY) HYPERTENSION SNOMED Code(s): 31874171 Comment: - Dilt, Losartan, Triamterene HCTZ (8) Anxiety Current Visit: Yes Status: Acute Code(s): F41.9 - ANXIETY DISORDER, UNSPECIFIED SNOMED Code(s): 69230892 Comment: - Conitnue home BZD (9) DVT prophylaxis Current Visit: No Status: Acute Code(s): QCR4510 - SNOMED Code(s): 674997307 Comment: - LMWH (10) Full code status Current Visit: No Status: Acute Code(s): Z78.9 - OTHER SPECIFIED HEALTH STATUS SNOMED Code(s): 934833389 Status and Disposition: Stable for d/c to home with GI referral and work note
[2019-02-08] MEDS: Enoxaparin(*) 40 MG/0.4 ML SYR SUBCUT SCH (10:57)
--- NOTE | 2019-02-08 11:45 | DS ---
AMENDED REPORT NOW INCLUDES DATES OF ADMISSION AND DISCHARGE CC: Dr. Brandee Mayfield; Dr. Markos Velasco * DISCHARGE SUMMARY: DATE OF ADMISSION: 02/06/19 DATE OF DISCHARGE: 02/08/19 PRIMARY CARE PHYSICIAN: Dr. Brandee Mayfield. Dr. Markos Velasco follows the patient for wrist check in terms of cardiology on at 2:40 p.m. DISPOSITION AT THE TIME OF DISCHARGE: Stable to discharge to home. PRIMARY DIAGNOSIS: Atypical chest pain thought to be secondary to esophageal spasm with transient left bundle-branch block. SECONDARY DIAGNOSES: 1. History of gastroesophageal reflux disease. 2. Hypertension. 3. Hyperlipidemia. 4. Fibromyalgia. 5. Anxiety disorder, on chronic benzos. 6. Femoral neuralgia. 7. History of gastric bypass with recurrent esophagitis. 8. History of distant coronary artery disease without intervention. MEDICATIONS AT THE TIME OF DISCHARGE: 1. Amitriptyline 50 mg p.o. q.h.s. 2. Aspirin 81 mg p.o. q. day. 3. Vitamin B12 500 mcg p.o. daily. 4. Diazepam 2.5 mg p.o. 2 to 3 times daily p.r.n. for severe anxiety. HOME MEDICATIONS: 1. Diltiazem 240 mg p.o. q. day. 2. Duloxetine 60 mg p.o. q.a.m. 3. Gabapentin 1200 mg p.o. q.h.s. 4. Losartan 25 mg p.o. q.a.m. 5. Multivitamin 1 tab p.o. daily. 6. Pantoprazole 40 mg p.o. daily. 7. Potassium 20 mEq p.o. b.i.d. 8. Simvastatin 20 mg p.o. q.a.m. 9. Triamterene/HCTZ 37.5/25 one cap p.o. daily. 10. Acetaminophen with codeine 1 cap p.o. q.6 hours p.r.n. for severe pain. 11. Calcium citrate 2 to 4 tabs p.o. daily. 12. Denosumab 60 mg subcutaneous every 6 months. 13. Meloxicam 7.5 mg p.o. b.i.d. 14. Fluticasone 1 spray both nares daily. 15. Pyridium 200 mg p.o. t.i.d. p.r.n. 16. Ranitidine 150 mg p.o. daily. Medication changes during this hospitalization include the discontinuation of omeprazole 20 mg p.o. q.a.m. in favor of pantoprazole 40 mg p.o. daily. Otherwise, no change in medications. HISTORY OF PRESENT ILLNESS AND HOSPITAL COURSE: This is a 73-year-old female with the above past medical history who presented to emergency room on 02/06/19 with complaint of acute onset of crushing substernal chest pain in the setting of subacute constipation. The patient reports that she had bowel movement 4 days prior and had continued to strain her bowel movements and during the straining, she had upper chest pressure that radiated to her back and thus she decided to present to the emergency room as she was concerned in the ER. Of note, she does have a history of CAD with a known last cardiac catheterization in 2007. At that time, it was suspected LAD lesions 20% to 30%. Last nuclear stress test done prior to this hospitalization was in 2014, which did not show any ischemia and echo was also done in 2014. In the emergency room, her vital signs were notable for hypertension 180s/90s, heart rate of 60s, oxygen saturation normal. Labs were done, which were unremarkable other than the exception of potassium at 3.6 and the troponin notable at 0. EKG initially showed sinus rhythm at rate of 68 with T-wave inversions in V3 and V4 which was unchanged from prior. Secondary to the patient's chest pain, constipation, and cardiac history, the patient was admitted to the observation status to the hospitalist service. Hospital course by problems is as follows: 1. Atypical chest pain. The patient shortly after being admitted had episode of severe crushing chest pain. An EKG was done at that time which showed a new transient left bundle-branch block. A STEMI alert was called because left bundle- branch block was new in the setting of crushing chest pain and catheterization was done, which revealed no disease in cardiac vessels. Her left bundle-branch block subsequently returned to normal sinus rhythm and her troponins continued to remain at 0.0 over the course of 24 hours status post her reported event of chest pain. Her potassium was low, but otherwise there was no clear cardiac explanation for her atypical chest pain and it was thought that her chest pain was from esophageal spasm in the setting of transient hypokalemia which may have triggered left bundle- branch block. She does have a heart murmur and an echocardiogram was done to determine if aortic stenosis was contributing to her possible transient left bundle- branch block, although no valvular pathology was noted on echocardiogram that was significant enough to contribute. Overall, the impression was that her initial chest pain was GI in nature and left bundle was transient in setting of electrolyte disturbances. She improved significantly with the addition of GI cocktail, sucralfate, PPI and H2 marcela as well as focusing on her bowel regimen to alleviate her constipation. 2. Transient left bundle-branch block as above. This happened shortly after her hospitalization and was thought to be attributed to her electrolyte disturbances as no cardiac pathology including left heart cath and echocardiogram determined any pathology that could be possibly contributing to this. She had normal sinus rhythm throughout the rest of her stay here without any signs of acute ischemia and troponins remained flat. 3. Constipation. The patient has struggled for significant amount of time with constipation in the setting of distant Shane-en-Y. She has no evidence of small bowel obstruction. She was started on magnesium citrate and was able to produce several bowel movements prior to discharge with alleviation of her symptoms. 4. GERD with esophagitis. The patient with severe esophagitis in the setting of distant Shane-en-Y. Continue PPI and H2 marcela. On discharge, focus on improved bowel regimen with magnesium citrate at home prior to discharge. 5. CAD. History of small lesion in LAD, unchanged from last catheterization in 2007. She was already optimized from secondary prevention standpoint with aspirin, Lipitor. 6. Fibromyalgia. She was on amitriptyline, duloxetine, and gabapentin, which were continued here in the hospital without any evidence of flare. 7. Hypertension. The patient is on diltiazem, losartan, triamtrene-HCTZ. Given her hypokalemia, it is reasonable to consider whether HCTZ should be continued, though the patient reports that she has been on other medication including potassium-sparing medications to help lower her blood pressure with no affect to her potassium and thus most likely it was related to her ability to absorb electrolytes in the setting of Shane-en-Y. She was already on potassium supplementation and this was continued. 8. Anxiety. The patient is on benzodiazepines at baseline. 9. Incidental findings. The patient had mildly elevated TSH at 6.64 on admission and subsequent free T3 and T4 which was 0.93 and 3 respectively which is consistent with subclinical hypothyroidism. This can be followed up on by primary care provider. 10. Elevated creatinine. The patient appears to have a baseline creatinine of 1.4 to 1.3, which puts her at question of diagnosis of CKD stage 2 to 3. This can be addressed by primary care provider on outpatient setting. Her medications are currently renally dosed. Overall on day of discharge, the patient was ambulating, voiding freely, tolerating diet with no further chest pain and it was believed that this is a non-cardiac event of her chest pain. She will be discharged with followup with her primary care provider, Dr. Brandee Mayfield and wrist check from her cardiac catheterization where she was catheterized through right wrist shortly afterwards with Dr. Velasco in [facility]. Focus on improving her bowel regimen and possibly reducing polypharmacy to help with this patient's ongoing chronic constipation in a setting of Shane-en-Y. LABS AND STUDIES DONE DURING THIS HOSPITALIZATION: Left heart catheterization was done on 02/06/19 which showed no intervenable lesions and cardiac vasculature. Transthoracic echocardiogram was done on 02/06/19 which showed ejection fraction of 55% to 60%, grade 1 diastolic dysfunction and no significant valvular pathology. An abdomen and pelvis CT was done on 02/06/19 that showed negative for bowel obstruction and a large volume of retained stool in the colon. Chest x-ray was done on 02/06/19 which showed no acute cardiopulmonary pathology. EKG was done initially on 02/06/19 which showed normal sinus rhythm. A transient EKG done at 02/06/19 at 1900 showed transient left bundle-branch block, sinus rhythm with no other new changes and then subsequent post- catheterization EKGs were done which showed normal sinus rhythm with no acute signs of ischemia. Consultants during this hospitalization included Cardiology, who ultimately signed off and felt that this was non-cardiac etiology of her chest pain and that is addressed as most likely related to her GI pathology. Labs on day of discharge include a CBC that showed a white blood cell count of 5.6, hemoglobin of 12, hematocrit of 37, platelets of 311 and a chemistry showing a sodium of 141, potassium 4.6, BUN 20, creatinine 1.4, glucose 104. A1c was performed, which showed 6.3 consistent with pre-diabetes and LDL cholesterol is 34 during this hospitalization showing effective secondary prevention. ITEMS TO FOLLOW UP ON STATUS POST DISCHARGE: 1. Constipation. The patient had significant problems with constipation, status post gastric bypass and may need aggressive bowel regimen including magnesium citrate with written instructions for what to do when bowel movements have not occurred every 3 days. At this time, she has been responsive to magnesium citrate and is already on MiraLAX and docusate at baseline. 2. Subclinical hypothyroidism. TSH is elevated at 6.64. This could be sick euthyroid versus subclinical hypothyroidism. She is asymptomatic and will be followed up with primary care. 3. CKD? Creatinine is 1.4 in this hospitalization which appears consistent with prior. This patient may carry a diagnosis of chronic kidney disease and can be further documented by primary care physician. DISPOSITION AT THE TIME OF DISCHARGE: The patient is stable to return to home. She has no further questions. Plan of care was discussed with the patient and her family. They have no further questions. Plans to follow up with Dr. Mayfield as well as Dr. Velasco. TIME SPENT: Forty minutes was spent on the planning on this discharge and over half of that was spent directly at the bedside with the patient providing direct patient care. This is a summary of care that is provided during this hospitalization. For any questions regarding the care of this patient, please do not hesitate to contact me on my cellphone directly, which is [phone]. [id number]/[facility] #: [id number] MTDD
== END 2019-02-08 11:50 | disposition home or self-care (01) ==
LOC: ED 09:45 → MEDTELE 12:14 → ICU 21:44 → MEDTELE 02-07 09:10
PROVIDERS: ADMIT Internal Medicine; ATTEND Internal Medicine
DX: I21.3 ST elevation (STEMI) myocardial infarction of unspecified site (principal); R07.89 Other chest pain; K22.4 Dyskinesia of esophagus; I44.7 Left bundle-branch block, unspecified; K21.9 Gastro-esophageal reflux disease without esophagitis; I10 Essential (primary) hypertension; E78.5 Hyperlipidemia, unspecified; M79.7 Fibromyalgia; F41.9 Anxiety disorder, unspecified; G58.8 Other specified mononeuropathies; Z98.84 Bariatric surgery status; I25.10 Atherosclerotic heart disease of native coronary artery without angina pectoris; Z79.899 Other long term (current) drug therapy; Z88.0 Allergy status to penicillin; Z88.2 Allergy status to sulfonamides; K59.00 Constipation, unspecified; R79.89 Other specified abnormal findings of blood chemistry; D50.9 Iron deficiency anemia, unspecified; H81.09 Meniere's disease, unspecified ear; I73.00 Raynaud's syndrome without gangrene; G47.30 Sleep apnea, unspecified; E78.00 Pure hypercholesterolemia, unspecified; R94.31 Abnormal electrocardiogram [ECG] [EKG]
CPT/HCPCS: 36415; 71045; 74177; 80048; 80053; 80061; 82140; 82550; 82553; 82607; 83036; 83721; 83735; 83874; 83880; 84425; 84439; 84443; 84481; 84484; 85025; 85027; 85610; 85730; 86850; 86900; 86901; 87641; 93005; 93306; 93454; 96361; 96365; 96366; 96372; 96375; 99156; 99157; 99284; A9270-GY; G0378; J0360; J1644; J1650; J2250; J2270; J2405; J3010; J3411; J3480; Q9967

== ENCOUNTER 2019-03-29 11:38 | Emergency (ER) | payer MEDICARE ==
--- OUTSIDE RECORDS SUMMARY | 2019-03-29 12:14 | XMS REPORT | Continuity of Care Document ---
:1945 External Reference #:[id number] Author Name Sabine Escobedo PA-C Address [address] [place] [address] Care Team Providers Name Role Phone Simon Bolanos MD - Surgery Care Team Information Clinical Technologist [phone] Nghia Weber MD - Surgery Care Team Information Clinical Technologist [phone] Renate Gomes NP-C Care Team Information Clinical Technologist [phone] Daren Root MD - Internal Care Team Information Clinical Technologist [phone] Medicine Problems Active Problems Provider Date Epigastric pain Sabine Escobedo PA-C Onset: 03/17/2019 Constipation Sabine Escobedo PA-C Onset: 02/15/2019 Abdominal pain Sabine Escobedo PA-C Onset: 02/15/2019 Chest pain Sabine Escobedo PA-C Onset: 02/15/2019 Gastroesophageal reflux disease Sabine Escobedo PA-C Onset: 02/15/2019 Gastric ulcer without hemorrhage, Mauricio Thompson MD Onset: 05/04/2017 without perforation AND without obstruction Social History Type Date Description Comments Sex Unknown Tobacco Use Start: Unknown Patient has never smoked Smoking Status Reviewed: 03/17/19 Patient has never smoked Allergies, Adverse Reactions, Alerts Active Allergies Reaction Severity Comments Date Catapres 05/04/2017 Tenormin 05/04/2017 Captopril 05/04/2017 Erythromycin 05/04/2017 Sulfa Antibiotics 05/04/2017 Medications Active Medications SIG Qnty Indications Ordering Date Provider Sucralfate 1 tablet by 120tabs R10.10 Mauricio Whelan 02/15/2019 1gm Tablets mouth on an MD Jay empty stomach 3-4 times daily Acetaminophen-Codeine Every 6 Hours Unknown 02/06/2019 #4 300-60mg Tablets Pantoprazole Sodium Every Day Unknown 02/06/[address] Fluticasone Propionate Every Day Unknown 02/06/2019 50mcg/Act Suspension Meloxicam Twice Daily Unknown 02/06/2019 7.5mg Tablets Phenazopyridine HCL Three Times Unknown 02/06/2019 200mg Daily Tablets Gabapentin 2 AT Bedtime Unknown 05/11/2018 600mg Tablets Diazepam .2-3 Times Unknown 05/11/2018 5mg Tablets Daily Duloxetine HCL Every Morning Unknown 05/11/2018 60mg Caps Part [facility] B-12 Every Day Unknown 06/07/2017 500mcg Tablets Diltiazem CD Every Morning Unknown 06/24/2016 240mg Caps ER 24HR Simvastatin Every Morning Unknown 05/02/2015 20mg Tablets Triamterene/Hydrochloro Every Morning Unknown 05/02/2015 thiazide 37.5-25mg Capsules Amitriptyline HCL Bedtime Unknown 03/31/2012 50mg Tablets Potassium Chloride Marielena 2 Tabs bid Unknown 03/31/2012 ER 10Meq Tablets ER Aspirin Low Dose 1 by mouth Unknown 81mg every day Tablets DR Ranitidine HCL 1 tablet after Unknown 150mg dinner Capsules Losartan Potassium 1 by mouth Unknown 50mg every day Tablets Prolia 60 mg sc q6mon Unknown 60mg/ml Soln Prefill Syringe History Medications Prolia .Every 6 Months Unknown 02/06/2019 - 02/15/2019 60mg/ml Soln Prefill Syringe Ranitidine HCL Every Day Unknown 02/06/2019 - 02/15/2019 75mg Tablets Immunizations Description No Information Available Vital Signs Date Vital Result Comment 03/17/2019 9:37am Height 65 inches 5'5" Weight 164.00 lb BMI (Body Mass Index) 27.3 kg/m2 02/15/2019 11:27am Height 65 inches 5'5" Weight 158.00 lb BP Systolic 158 mmHg BP Diastolic 66 mmHg Heart Rate 58 /min BMI (Body Mass Index) 26.3 kg/m2 Results Test Date Facility Test Result H/L Range Note Serum or plasma N2N/CCD Import Serum or plasma 3.00 pg/mL 2.5- 3.9 triiodothyronine 019 triiodothyronine (T3) free measure (T3) free measurement (mass/volume) Serum or plasma N2N/CCD Import Serum or plasma 0.93 ng/dL 0.61- 1.12 thyroxine (T4) free 019 thyroxine (T4) measurement (m free measurement (mass/volume) Lab Results N2N/CCD Import Estimated GFR 44.4 019 () Estimated N2N/CCD Import Estimated 36.7 glomerular 019 glomerular filtration rate filtration rate (GFR) non-Afr (GFR) non- Serum or plasma N2N/CCD Import Serum or plasma 9.3 mg/dL 8.6- 10.3 calcium measurement 019 calcium (mass/volume) measurement (mass/volume) Serum or plasma N2N/CCD Import Serum or plasma 14.2 8-20 urea 019 urea nitrogen/creatinine nitrogen/creatinin ratio e ratio Serum or plasma N2N/CCD Import Serum or plasma 1.41 mg/dL 0.51- 0.95 creatinine 019 creatinine measurement measurement (mass/volum (mass/volume) Serum or plasma N2N/CCD Import Serum or plasma 20 mg/dL 6-24 urea nitrogen 019 urea nitrogen measurement measurement (mass/vo (mass/volume) Serum glucose N2N/CCD Import Serum glucose 104 mg/dL 70-100 measurement 019 measurement (mass/volume) (mass/volume) Serum or plasma N2N/CCD Import Serum or plasma 4 mmol/L 2-11 anion gap 019 anion gap Serum or plasma N2N/CCD Import Serum or plasma 33 mmol/L 22-32 carbon dioxide, 019 carbon dioxide, total measurement total measurement (moles/volume) Serum or plasma N2N/CCD Import Serum or plasma 104 mmol/L 101- 111 chloride 019 chloride measurement measurement (moles/volume (moles/volume) Serum or plasma N2N/CCD Import Serum or plasma 4.6 mmol/L 3.5- 5.0 potassium 019 potassium measurement measurement (moles/volum (moles/volume) Serum or plasma N2N/CCD Import Serum or plasma 141 mmol/L 135- 145 sodium measurement 019 sodium measurement (moles/volume) (moles/volume) Automated blood N2N/CCD Import Automated blood 7.8 fL 7.4-10.4 platelet mean 019 platelet mean volume measurement volume measurement Automated blood N2N/CCD Import Automated blood 311 10^3/uL 150- 450 platelet count 019 platelet count (number/volume) (number/volume) Automated N2N/CCD Import Automated 17 % 10-15 erythrocyte 019 erythrocyte distribution width distribution width ratio ratio Automated N2N/CCD Import Automated 33 g/dL 31-36 erythrocyte mean 019 erythrocyte mean corpuscular corpuscular hemoglobin hemoglobin concentration measurement (mass/vol Automated N2N/CCD Import Automated 28 pg 27-31 erythrocyte mean 019 erythrocyte mean corpuscular corpuscular hemoglobin hemoglobin (mass per erythrocyte) Automated N2N/CCD Import Automated 84 fL 80-97 erythrocyte mean 019 erythrocyte mean corpuscular volume corpuscular volume Automated blood N2N/CCD Import Automated blood 37 % 35-47 hematocrit 019 hematocrit (percentage) (percentage) Blood hemoglobin N2N/CCD Import Blood hemoglobin 12.0 g/dL 12.0- 16.0 measurement 019 measurement (mass/volume) (mass/volume) Automated blood N2N/CCD Import Automated blood 4.34 3.70-4.87 erythrocyte count 019 erythrocyte count 10^6/uL (number/volume) (number/volume) Automated blood N2N/CCD Import Automated blood 5.6 10^3/uL 3.5- 10.8 leukocytes count 019 leukocytes count corrected for nuc corrected for nucleated erythrocytes (number/volume) Blood hemoglobin N2N/CCD Import Blood hemoglobin 6.3 % 4.0-5.6 A1c/total 019 A1c/total hemoglobin By HPLC hemoglobin By HPLC Serum or plasma low N2N/CCD Import Serum or plasma 34 mg/dL density lipoprotein 019 low density (LDL) chol lipoprotein (LDL) cholesterol measurement (mass/volume) Serum or plasma N2N/CCD Import Serum or plasma 48.1 mg/dL high density 019 high density lipoprotein (HDL) lipoprotein (HDL) cho cholesterol measurement Serum or plasma N2N/CCD Import Serum or plasma 100 mg/dL cholesterol 019 cholesterol measurement measurement (mass/volu (mass/volume) Serum or plasma N2N/CCD Import Serum or plasma 89 mg/dL triglyceride 019 triglyceride measurement measurement (mass/vol (mass/volume) Serum or plasma N2N/CCD Import Serum or plasma 0.03 ng/mL troponin i.cardiac 019 troponin i.cardiac measurement (ma measurement (mass/volume) Lab Results N2N/CCD Import Globulin 2.4 g/dL 2-4 019 Serum or plasma N2N/CCD Import Serum or plasma 1.9 1-3 albumin/globulin 019 albumin/globulin mass ratio mass ratio Serum or plasma N2N/CCD Import Serum or plasma 0.40 mg/dL 0.2- 1.0 total bilirubin 019 total bilirubin measurement (mass/ measurement (mass/volume) Plasma ammonia N2N/CCD Import Plasma ammonia 48 mcmol/L 16-53 measurement 019 measurement (moles/volume) (moles/volume) Serum or plasma low N2N/CCD Import Serum or plasma 51 mg/dL density lipoprotein 019 low density (LDL) chol lipoprotein (LDL) cholesterol measurement (mass/volume) Serum or plasma N2N/CCD Import Serum or plasma 89 U/L 34-104 alkaline 019 alkaline phosphatase phosphatase measurement ( measurement (enzymatic activity/volume) Serum or plasma N2N/CCD Import Serum or plasma 18 U/L 7-52 alanine 019 alanine aminotransferase aminotransferase measureme measurement (enzymatic activity/volume) Serum or plasma N2N/CCD Import Serum or plasma 20 U/L 13-39 aspartate 019 aspartate aminotransferase aminotransferase measure measurement (enzymatic activity/volume) Serum or plasma N2N/CCD Import Serum or plasma 285 U/L 10-223 creatine kinase 019 creatine kinase measurement (enzym measurement (enzymatic activity/volume) Serum or plasma N2N/CCD Import Serum or plasma 4.7 ng/mL 0.6- 6.3 creatine kinase MB 019 creatine kinase MB measurement (ma measurement (mass/volume) Serum or plasma N2N/CCD Import Serum or plasma 99.3 ng/mL 14.3- 65.8 myoglobin 019 myoglobin measurement measurement (mass/volume (mass/volume) Serum or plasma N2N/CCD Import Serum or plasma 71 pg/mL <100 natriuretic peptide 019 natriuretic B measurement peptide B measurement (mass/volume) Serum or plasma N2N/CCD Import Serum or plasma 2.4 mg/dL 1.9- 2.7 magnesium 019 magnesium measurement measurement (mass/volume (mass/volume) Serum or plasma N2N/CCD Import Serum or plasma 405 pg/mL 180- 914 vitamin B12 019 vitamin B12 measurement measurement (mass/volu (mass/volume) Serum or plasma N2N/CCD Import Serum or plasma 6.64 0.34-5.60 thyroid stimulating 019 thyroid mcIU/mL hormone (TSH) stimulating hormone (TSH) measurement (units/volume) Xray [facility] Radiology Chest Ap Or Port <pending> 019 Xray [facility] Radiology CT Abd/Pel W <pending> 019 Stool Plesiomonas N2N/CCD Import Nasal Screen MRSA Mrsa Not shigelloides Dna 019 (PCR) Detected detection by no CT biopsy liver N2N/CCD Import CT biopsy liver 3.0 10^3/ul 1.5- 7.7 019 Blood lymphocytes N2N/CCD Import Blood lymphocytes 0.9 10^3/ul 1.0-4.8 automated count 019 automated count (number/volume) (number/volume) Blood monocytes N2N/CCD Import Blood monocytes 0.3 10^3/ul 0- 0.8 automated count 019 automated count (number/volume) (number/volume) Automated blood N2N/CCD Import Automated blood 0.0 10^3/ul 0- 0.6 eosinophil count 019 eosinophil count (number/volume) (number/volume) Automated blood N2N/CCD Import Automated blood 0.0 10^3/ul 0- 0.2 basophil count 019 basophil count (number/volume) (number/volume) Blood nucleated N2N/CCD Import Blood nucleated 0.0 10^3/ul erythrocytes 019 erythrocytes automated count automated count (numb (number/volume) Automated blood N2N/CCD Import Automated blood 70.7 % neutrophils/100 019 neutrophils/100 leukocytes leukocytes Serum or plasma N2N/CCD Import Serum or plasma 4.5 g/dL 3.2-5.2 albumin measurement 019 albumin by bromocresol measurement by bromocresol green (BCG) dye binding method (ma Serum total protein N2N/CCD Import Serum total 6.9 g/dL 6.4-8.9 measurement 019 protein (mass/volume) measurement (mass/volume) Activated partial N2N/CCD Import Activated partial 38.0 26.0- 38.0 thromboplastin time 019 thromboplastin seconds (aPTT) in pl time (aPTT) in platelet poor plasma by coagulation a Whole blood N2N/CCD Import Whole blood 0.97 0.82-1.09 international 019 international normalized ratio normalized ratio (Inr) (Inr) Automated blood N2N/CCD Import Automated blood 20.4 % lymphocytes/100 019 lymphocytes/100 leukocytes leukocytes Automated blood N2N/CCD Import Automated blood 7.3 % monocytes/100 019 monocytes/100 leukocytes leukocytes Automated blood N2N/CCD Import Automated blood 0.0 nucleated 019 nucleated erythrocytes erythrocytes detection detection Automated blood N2N/CCD Import Automated blood 0.5 % basophils/100 019 basophils/100 leukocytes leukocytes Automated blood N2N/CCD Import Automated blood 1.1 % eosinophils/100 019 eosinophils/100 leukocytes leukocytes Automated blood N2N/CCD Import Automated blood 7.1 % monocytes/100 019 monocytes/100 leukocytes leukocytes Automated blood N2N/CCD Import Automated blood 1.1 % eosinophils/100 019 eosinophils/100 leukocytes leukocytes Automated blood N2N/CCD Import Automated blood 0.4 % basophils/100 019 basophils/100 leukocytes leukocytes Automated blood N2N/CCD Import Automated blood 0.1 nucleated 019 nucleated erythrocytes erythrocytes detection detection Serum or plasma N2N/CCD Import Serum or plasma 139 mmol/L 135- 145 sodium measurement 019 sodium measurement (moles/volume) (moles/volume) Serum or plasma N2N/CCD Import Serum or plasma 3.4 mmol/L 3.5- 5.0 potassium 019 potassium measurement measurement (moles/volum (moles/volume) Serum or plasma N2N/CCD Import Serum or plasma 103 mmol/L 101- 111 chloride 019 chloride measurement measurement (moles/volume (moles/volume) Serum or plasma N2N/CCD Import Serum or plasma 28 mmol/L 22-32 carbon dioxide, 019 carbon dioxide, total measurement total measurement (moles/volume) Serum or plasma N2N/CCD Import Serum or plasma 8 mmol/L 2-11 anion gap 019 anion gap Serum glucose N2N/CCD Import Serum glucose 101 mg/dL 70-100 measurement 019 measurement (mass/volume) (mass/volume) Serum or plasma N2N/CCD Import Serum or plasma 18 mg/dL 6-24 urea nitrogen 019 urea nitrogen measurement measurement (mass/vo (mass/volume) Serum or plasma N2N/CCD Import Serum or plasma 1.35 mg/dL 0.51- 0.95 creatinine 019 creatinine measurement measurement (mass/volum (mass/volume) Serum or plasma N2N/CCD Import Serum or plasma 13.3 8-20 urea 019 urea nitrogen/creatinine nitrogen/creatinin ratio e ratio Serum or plasma N2N/CCD Import Serum or plasma 9.5 mg/dL 8.6- 10.3 calcium measurement 019 calcium (mass/volume) measurement (mass/volume) Serum total protein N2N/CCD Import Serum total 6.9 g/dL 6.4-8.9 measurement 019 protein (mass/volume) measurement (mass/volume) Serum or plasma N2N/CCD Import Serum or plasma 4.8 g/dL 3.2-5.2 albumin measurement 019 albumin by bromocresol measurement by bromocresol green (BCG) dye binding method (ma Lab Results N2N/CCD Import Globulin 2.1 g/dL 2-4 019 Serum or plasma N2N/CCD Import Serum or plasma 2.3 1-3 albumin/globulin 019 albumin/globulin mass ratio mass ratio Serum or plasma N2N/CCD Import Serum or plasma 0.50 mg/dL 0.2- 1.0 total bilirubin 019 total bilirubin measurement (mass/ measurement (mass/volume) Serum or plasma N2N/CCD Import Serum or plasma 0.7 mmol/L 0.5- 2.0 lactate measurement 019 lactate (moles/volume) measurement (moles/volume) Serum or plasma N2N/CCD Import Serum or plasma 90 U/L 34-104 alkaline 019 alkaline phosphatase phosphatase measurement ( measurement (enzymatic activity/volume) Serum or plasma N2N/CCD Import Serum or plasma 22 U/L 7-52 alanine 019 alanine aminotransferase aminotransferase measureme measurement (enzymatic activity/volume) Serum or plasma N2N/CCD Import Serum or plasma 30 U/L 13-39 aspartate 019 aspartate aminotransferase aminotransferase measure measurement (enzymatic activity/volume) Serum or plasma N2N/CCD Import Serum or plasma 17 U/L 11.0-82.0 lipase measurement 019 lipase measurement (enzymatic acti (enzymatic activity/volume) Estimated N2N/CCD Import Estimated 38.5 glomerular 019 glomerular filtration rate filtration rate (GFR) non-Afr (GFR) non- Lab Results N2N/CCD Import Estimated GFR 46.6 019 () Serum or plasma C N2N/CCD Import Serum or plasma C < 1.00 mg/L 0 -8.00 reactive protein 019 reactive protein measurement (ma measurement (mass/volume) Color of Urine by N2N/CCD Import Color of Urine by Colorless Auto 019 Auto Urine clarity by N2N/CCD Import Urine clarity by Clear refractometry 019 refractometry automated automated Specific gravity of N2N/CCD Import Specific gravity 1.003 1.010- 1.03 Urine by 019 of Urine by 0 Refractometry Refractometry automat automated Lab Results N2N/CCD Import Urine pH 7.0 5-9 019 Urine urobilinogen N2N/CCD Import Urine urobilinogen Negative Negative measurement 019 measurement (units/volume) by t (units/volume) by test strip Ketones N2N/CCD Import Ketones Negative Negative [Mass/volume] in 019 [Mass/volume] in Urine by Automated Urine by Automated test s test strip Protein N2N/CCD Import Protein Negative Negative [Mass/volume] in 019 [Mass/volume] in Urine by Automated Urine by Automated test s test strip Urine leukocyte N2N/CCD Import Urine leukocyte Negative Negative esterase detection 019 esterase detection by automated te by automated test strip Urine hemoglobin N2N/CCD Import Urine hemoglobin Negative Negative detection by test 019 detection by test strip strip Urine nitrite N2N/CCD Import Urine nitrite Negative Negative detection by 019 detection by automated test automated test strip strip Urine total N2N/CCD Import Urine total Negative Negative bilirubin detection 019 bilirubin by automated test detection by automated test strip Urine glucose N2N/CCD Import Urine glucose Negative Negative detection by 019 detection by automated test automated test strip strip Automated blood N2N/CCD Import Automated blood 4.0 10^3/uL 3.5- 10.8 leukocytes count 019 leukocytes count corrected for nuc corrected for nucleated erythrocytes (number/volume) Automated blood N2N/CCD Import Automated blood 4.24 3.70-4.87 erythrocyte count 019 erythrocyte count 10^6/uL (number/volume) (number/volume) Blood hemoglobin N2N/CCD Import Blood hemoglobin 11.7 g/dL 12.0- 16.0 measurement 019 measurement (mass/volume) (mass/volume) Automated blood N2N/CCD Import Automated blood 36 % 35-47 hematocrit 019 hematocrit (percentage) (percentage) Automated N2N/CCD Import Automated 84 fL 80-97 erythrocyte mean 019 erythrocyte mean corpuscular volume corpuscular volume Automated N2N/CCD Import Automated 28 pg 27-31 erythrocyte mean 019 erythrocyte mean corpuscular corpuscular hemoglobin hemoglobin (mass per erythrocyte) Automated N2N/CCD Import Automated 33 g/dL 31-36 erythrocyte mean 019 erythrocyte mean corpuscular corpuscular hemoglobin hemoglobin concentration measurement (mass/vol Automated N2N/CCD Import Automated 17 % 10-15 erythrocyte 019 erythrocyte distribution width distribution width ratio ratio Automated blood N2N/CCD Import Automated blood 266 10^3/uL 150- 450 platelet count 019 platelet count (number/volume) (number/volume) Automated blood N2N/CCD Import Automated blood 7.5 fL 7.4-10.4 platelet mean 019 platelet mean volume measurement volume measurement Lymphocyte N2N/CCD Import Lymphocyte 2.9 10^3/ul 1.5-7.7 proliferation test 019 proliferation test Blood lymphocytes N2N/CCD Import Blood lymphocytes 0.8 10^3/ul 1.0-4.8 automated count 019 automated count (number/volume) (number/volume) Blood monocytes N2N/CCD Import Blood monocytes 0.3 10^3/ul 0- 0.8 automated count 019 automated count (number/volume) (number/volume) Automated blood N2N/CCD Import Automated blood 0.0 10^3/ul 0- 0.6 eosinophil count 019 eosinophil count (number/volume) (number/volume) Automated blood N2N/CCD Import Automated blood 0.0 10^3/ul 0- 0.2 basophil count 019 basophil count (number/volume) (number/volume) Blood nucleated N2N/CCD Import Blood nucleated 0.0 10^3/ul erythrocytes 019 erythrocytes automated count automated count (numb (number/volume) Automated blood N2N/CCD Import Automated blood 71.9 % neutrophils/100 019 neutrophils/100 leukocytes leukocytes Automated blood N2N/CCD Import Automated blood 19.5 % lymphocytes/100 019 lymphocytes/100 leukocytes leukocytes Procedures Description No Information Available Medical Devices Description No Information Available Encounters Type Date Location Provider Dx Diagnosis Office Visit 02/15/2019 [facility] Sabine Nelson K21.9 [facility]- [facility] reflux disease without esophagitis R07.89 Other chest pain R10.10 Upper abdominal pain, unspecified K59.00 Constipation, unspecified Assessments Date Code Description Provider 03/17/2019 K21.9 Gastro-esophageal reflux disease without Sabine Escobedo PA-C esophagitis 03/17/2019 R10.13 Epigastric pain Sabine Escobedo PA-C 03/17/2019 K59.00 Constipation, unspecified Sabine Escobedo PA-C 02/15/2019 K21.9 Gastro-esophageal reflux disease without Sabine Escobedo PA-C esophagitis 02/15/2019 R07.89 Other chest pain Sabien Escobedo PA-C 02/15/2019 R10.10 Upper abdominal pain, unspecified TEE Lopez 02/15/2019 K59.00 Constipation, unspecified Sabine Escobedo PA-C Plan of Treatment Future Appointment(s):04/17/2019 9:45 am - Sabine Escobedo PA-C at [facility]03/17/2019 - NAHOMI Lopez CK21.9 Gastro-esophageal reflux disease without acjarriptlnK40.13 Epigastric painK59.00 Constipation, unspecified Functional Status Description No Information Available Mental Status Description No Information Available Referrals Description No Information Available
--- OUTSIDE RECORDS SUMMARY | 2019-03-29 12:14 | XMS REPORT | Continuity of Care Document ---
:1945 External Reference #:[id number] Author Name Garrett Francois M.D. (transmitted by agent of provider Justine Schulz ) Address [address], [place] [address] Care Team Providers Name Role Phone Daren Root MD - Internal Care Team Information [employer] Dallin Mills MD - Occupational Care Team Information [employer] Medicine Brandee Mayfield M.D. - Family Medicine Care Team Information [employer] Problems Active Problems Provider Date Occult blood in stools Daren Root M.D.,FACP Onset: 04/13/2017 Coronary arteriosclerosis Kaden Iglesias M.D., [facility], FASNC Onset: 2014 Iron deficiency anemia Daren Root M.D.,FACP Onset: 04/01/2017 Essential hypertension Daren Root M.D.,FACP Onset: 04/01/2017 Shane-en-Y gastrojejunostomy Daren Root M.D.,FACP Onset: 04/23/2017 Note: sees Dr. Weber Major depressive disorder Daren Root M.D.,FACP Onset: 04/23/2017 Fibromyalgia Daren Root M.D.,FACP Onset: 04/23/2017 Atherosclerotic heart disease of Kaden Iglesias M.D., [facility], Onset: 2018 solomon coronary artery with FASNC unspecified angina pectoris Social History Type Date Description Comments Sex Unknown Tobacco Use Start: Unknown Never Smoked Cigarettes Smoking Status Reviewed: 02/09/19 Never Smoked Cigarettes ETOH Use Denies alcohol [...] Sodium 1 by mouth every 30tabs K21.9 Garrett Sinclair 01/16/2019 40mg day Jason Francois Tablets Acetaminophen-Codeine one by mouth 90tabs M13.0 Brandee Mayfield MD 01/16/2019 #4 every 6 hours as 300-60mg Tablets needed for pain Prolia one sc every 6 1ml M81.0 Brandee Mayfield MD 01/16/2019 60mg/ml Soln months Prefill Syringe Ranitidine HCL take one tablet 60tabs Brandee Mayfield MD 09/17/2018 150mg by mouth daily as Tablets needed Fluticasone Propionate use 2 sprays in 16units [facility], 05/07/2018 each nostril one [employer] 50mcg/Act Suspension time a day for 1 week, then 1 spray thereafter Phenazopyridine HCL 2 tabs po tid as 24tabs Sadi Jamil, 01/04/2018 100mg needed [employer] Tablets Blood Pressure Cuff use daily as 1units I10 Sadi Jamil, 09/29/2017 [facility] instructed to [employer] check bp Gabapentin 2 tab at night 180tabs Brandee Mayfield MD 09/15/2017 600mg Tablets Losartan Potassium 1 by mouth every 90tabs I10 Brandee Mayfield MD 08/23/2017 25mg day Tablets Simvastatin 1 by mouth every 90tabs Brandee Mayfield MD 08/25/2013 20mg Tablets day Aspir-81 1 by mouth every Kaden Dawn 08/25/[address] reta Iglesias M.D., [facility] Cefdinir one tid Surekha IV , 300mg Capsules Atul Catalan M.D. Diltiazem CD 1 by mouth every 90caps Linoofiute Jamil, 240mg Caps day [employer] ER 24HR Diazepam 1/2 tab by mouth [...] 90caps Sadi Jamil, 60mg Caps DR day [employer] Part Amitriptyline HCL 1 by mouth every 90tabs M79.7 Sadi Jamil, 50mg night at bedtime [employer] Tablets History Medications Doxycycline take 2 tab by 2caps Sadi Jamil, 09/19/2018 - Monohydrate mouth today [employer] 09/20/2018 100mg Capsules Omeprazole 1 by mouth every 90caps K21.9 Sadi Jamil, 09/17/2018 - 20mg mornings [employer] 01/16/2019 Capsules Medications Administered in Office Medication SIG Qnty Indications Ordering Provider Date Inj, Regadenoson, 0.1 MG Kaden Iglesias M.D., 10/08/2014 Injection [facility] Technetium TC 99M Kaden Iglesias M.D., 10/08/2014 Tetrofosmin, Per Unit Dose Up ANTOINE [facility] To 40 Millicuries Injection Depomedrol 80MG Flor Licona M.D. 05/03/2013 Injection Inj, Regadenoson, 0.1 MG Kaden Iglesias M.D., 08/08/2012 Injection [facility] [place] Aminophylline Kaden Iglesias M.D., 08/08/2012 Injection [place] Technetium TC 99M Kaden Iglesias M.D., 08/08/2012 Tetrofosmin, Per Unit Dose Up [place] To 40 Millicuries Injection Immunizations CPT Code Status Date Vaccine Lot # [id number] Given 02/06/2017 Pneumonia Vaccine [id number] Given 02/06/2017 Influenza Virus Vaccine, Quadrivalent, Split, Preservative Free Vital Signs Date Vital Result Comment 02/09/2019 3:58pm Height 65 inches 5'5" Weight 162.00 lb Heart Rate 61 /min BP Systolic Sitting 199 mmHg BP Diastolic Sitting 79 mmHg BMI (Body Mass Index) 27.0 kg/m2 01/16/2019 3:11pm Height 65 inches 5'5" Weight 166.00 lb Heart Rate 58 /min BP Systolic Sitting 130 mmHg Lue reg cuff BP Diastolic Sitting 78 mmHg Lue reg cuff O2 % BldC Oximetry 98 % BMI (Body Mass Index) 27.6 kg/m2 Results Test Date Facility Test Result H/L Range Note Laboratory test 02/06/2019 [facility] Troponin-I 0.01 ng/mL < 0.04 [address] (TnI) [place] [address] [phone] CBC Auto Diff 02/06/2019 [facility] White Blood 3.5 10^3/uL Normal 3.5-10.[address] [place] [address] [phone] Red Blood Count 4.57 10^6/uL Normal 3.70-4.87 Hemoglobin 12.7 g/dL Normal 12.0-16.0 Hematocrit 38 % Normal 35-47 Mean Corpuscular Volume 84 fL Normal 80-97 Mean Corpuscular Hemoglobin 28 pg Normal 27-31 Mean Corpuscular HGB Conc 33 g/dL Normal 31-36 Red Cell Distribution Width 17 % High 10-15 Platelet Count 294 10^3/uL Normal 150-450 Mean Platelet Volume 7.5 fL Normal 7.4-10.4 Abs Neutrophils 2.4 10^3/uL Normal 1.5-7.7 Abs Lymphocytes 0.7 10^3/uL Low 1.0-4.8 Abs Monocytes 0.3 10^3/uL Normal 0-0.8 Abs Eosinophils 0.1 10^3/uL Normal 0-0.6 Abs Basophils 0.0 10^3/uL Normal 0-0.2 Abs Nucleated RBC 0.0 10^3/uL Granulocyte % 69.5 % Lymphocyte % 20.2 % Monocyte % 7.7 % Eosinophil % 2.1 % Basophil % 0.5 % Nucleated Red Blood Cells % 0.0 Inr/Protime 02/06/2019 [facility] Inr 0.98 Normal 0.82-1.09 [address] [place] [address] [phone] Comp Metabolic 02/06/2019 [facility] Sodium 139 mmol/L Normal 135-145 Panel [address] [place] [address] [phone] Potassium 3.7 mmol/L Normal 3.5-5.0 Chloride 101 mmol/L Normal 101-111 Co2 Carbon Dioxide 32 mmol/L Normal 22-32 Anion Gap 6 mmol/L Normal 2-11 Glucose 110 mg/dL High 70-100 Blood Urea Nitrogen 17 mg/dL Normal 6-24 Creatinine 1.37 mg/dL High 0.51-0.95 BUN/Creatinine Ratio 12.4 Normal 8-20 Calcium 9.5 mg/dL Normal 8.6-10.3 Total Protein 7.2 g/dL Normal 6.4-8.9 Albumin 4.6 g/dL Normal 3.2-5.2 Globulin 2.6 g/dL Normal 2-4 Albumin/Globulin Ratio 1.8 Normal 1-3 Total Bilirubin 0.50 mg/dL Normal 0.2-1.0 Alkaline Phosphatase 96 U/L Normal 34-104 Alt 20 U/L Normal 7-52 Ast 24 U/L Normal 13-39 Egfr Non- 37.9 >60 Egfr 45.9 >60 3 Laboratory test 02/06/2019 [facility] Troponin-I (TnI) 0.00 ng/ mL <0.04 4 finding [address] [place] [address] [phone] Magnesium 2.4 mg/dL Normal 1.9-2.7 TSH (Thyroid Stim Horm) 6.64 mcIU/mL High 0.34-5.60 Vitamin B12 405 pg/mL Normal 180-914 5 CBC Auto 02/02/2019 [facility] White Blood 4.0 10^3/uL Normal 3.5-10.[address] [place] [address] [phone] Red Blood Count 4.24 10^6/uL Normal 3.70-4.87 Hemoglobin 11.7 g/dL Low 12.0-16.0 Hematocrit 36 % Normal 35-47 Mean Corpuscular Volume 84 fL Normal 80-97 Mean Corpuscular Hemoglobin 28 pg Normal 27-31 Mean Corpuscular HGB Conc 33 g/dL Normal 31-36 Red Cell Distribution Width 17 % High 10-15 Platelet Count 266 10^3/uL Normal 150-450 Mean Platelet Volume 7.5 fL Normal 7.4-10.4 Abs Neutrophils 2.9 10^3/uL Normal 1.5-7.7 Abs Lymphocytes 0.8 10^3/uL Low 1.0-4.8 Abs Monocytes 0.3 10^3/uL Normal 0-0.8 Abs Eosinophils 0.0 10^3/uL Normal 0-0.6 Abs Basophils 0.0 10^3/uL Normal 0-0.2 Abs Nucleated RBC 0.0 10^3/uL Granulocyte % 71.9 % Lymphocyte % 19.5 % Monocyte % 7.1 % Eosinophil % 1.1 % Basophil % 0.4 % Nucleated Red Blood Cells % 0.1 Comp Metabolic 02/02/2019 [facility] Sodium 139 mmol/L Normal 135-[address] [place] [address] [phone] Potassium 3.4 mmol/L Low 3.5-5.0 Chloride 103 mmol/L Normal 101-111 Co2 Carbon Dioxide 28 mmol/L Normal 22-32 Anion Gap 8 mmol/L Normal 2-11 Glucose 101 mg/dL High 70-100 Blood Urea Nitrogen 18 mg/dL Normal 6-24 Creatinine 1.35 mg/dL High 0.51-0.95 BUN/Creatinine Ratio 13.3 Normal 8-20 Calcium 9.5 mg/dL Normal 8.6-10.3 Total Protein 6.9 g/dL Normal 6.4-8.9 Albumin 4.8 g/dL Normal 3.2-5.2 Globulin 2.1 g/dL Normal 2-4 Albumin/Globulin Ratio 2.3 Normal 1-3 Total Bilirubin 0.50 mg/dL Normal 0.2-1.0 Alkaline Phosphatase 90 U/L Normal 34-104 Alt 22 U/L Normal 7-52 Ast 30 U/L Normal 13-39 Egfr Non- 38.5 >60 Egfr 46.6 >60 6 Laboratory test 02/02/2019 [facility] Lipase 17 U/L Normal 11.0-82.[address] [place] [address] [phone] C Reactive Protein < 1.00 mg/L Normal <8.01 Lactic Acid 0.7 mmol/L Normal 0.5-2.0 7 Urinalysis Profile 02/02/2019 [facility] Urine Color Colorless [address] [place] [address] [phone] Urine Appearance Clear Urine Specific [place] 1.003 Low 1.010-1.030 Urine pH 7.0 Normal 5-9 Urine Urobilinogen Negative Negative Urine Ketones Negative Negative Urine Protein Negative Negative Urine Leukocytes Negative Negative Urine Blood Negative Negative Urine Nitrite Negative Negative Urine Bilirubin Negative Negative Urine Glucose Negative Negative CBC Auto 10/11/2018 [facility] White Blood 12.5 10^3/uL High 3.5-10.[address] [place] [address] [phone] Red Blood Count 4.45 10^6/uL Normal 3.70-4.87 [...] Blood Cells % 0.1 Basic Metabolic 10/11/2018 [facility] Sodium 139 mmol/L Normal 135-145 Panel [address] [place] [address] [phone] Chloride 103 mmol/L Normal 101-111 Co2 Carbon Dioxide 27 mmol/L Normal 22-32 Glucose 105 mg/dL High 70-100 Blood Urea Nitrogen 20 mg/dL Normal 6-24 Creatinine 1.17 mg/dL High 0.51-0.95 BUN/Creatinine Ratio 17.1 Normal 8-20 Calcium 9.4 mg/dL Normal 8.6-10.3 Egfr Non- 45.5 >60 Egfr 55.0 >60 8 Potassium TNP mmol/L 3.5-5.0 9 Anion Gap 9 mmol/L Normal 2-11 Laboratory test 10/11/2018 [facility] Lactic Acid 0.8 mmol/L Normal 0.5-2.0 10 finding [address] [place] [address] [phone] 1 Troponin-I testing on Plasma Separator Tubes (PST) has a known false positive rate of 0.20-0.40%. All positive troponins reflex immediately to secondary confirmatory testing. Using the [employer] DxI 800 Access Immunoassay systems, the 99th percentile upper reference limit was demonstrated to be < 0.03 ng/mL. 2 Standard intensity warfarin therapeutic range: 2.0-3.0 High intensity warfarin therapeutic range: 2.5-3.5 3 Because ethnic data is not always readily [...] 15-29 5 Kidney failure <15 (or dialysis) 4 Troponin-I testing on Plasma Separator Tubes (PST) has a known false positive rate of 0.20-0.40%. All positive troponins reflex immediately to secondary confirmatory testing. Using the [employer] DxI 800 Access Immunoassay systems, the 99th percentile upper reference limit was demonstrated to be < 0.03 ng/mL. 5 Normal Range 180 to 914 Indeterminate Range 145 to 180 Deficient Range <145 6 Because ethnic data is not always readily [...] 15-29 5 Kidney failure <15 (or dialysis) 7 [facility] Severe Sepsis and Septic Shock Management Bundle Measure requires all lactic acids initially measuring >2.0 mmol/L be repeated. 8 Because ethnic data is not always readily [...] 15-29 5 Kidney failure <15 (or dialysis) 9 Specimen Hemolyzed. Result may not be valid. Unable to report test result due to hemolysis. 10 [facility] Severe Sepsis and Septic Shock Management Bundle Measure requires all lactic acids initially measuring >2.0 mmol/L be repeated. Procedures Date Code Description Status 12/16/2018 [id number] EKG Tracing & Interpretation Completed 06/02/2018 [id number] Bone Mineral Density Test Completed 06/02/2018 [id number] Mammogram Completed 07/14/2016 [id number] Mammogram Completed 07/03/2016 [id number] Colonoscopy Completed 06/26/2016 [id number] Colonoscopy Completed 09/06/2013 [id number] Mammogram Completed Medical Devices Description No Information Available Encounters Type Date Location Provider Dx Diagnosis Office Visit 01/16/2019 [facility] Malissa Mayfield MD K21.9 Gastro- esophageal 3:00p Medicine - Bren reflux disease without esophagitis M81.0 Age-related osteoporosis w/o current pathological fracture M13.0 Polyarthritis, unspecified H81.03 Meniere's disease, bilateral Office Visit 12/16/2018 11:00a [facility] Kaden López I25.119 [facility] Maggy Iglesias M.D., disease of FACC, FASNC solomon cor art w unsp ang pctrs I73.00 Raynaud's syndrome without gangrene I10 Essential (primary) hypertension R94.31 Abnormal electrocardiogram [ECG] [EKG] Office Visit 11/25/2018 [facility] Malissa Mayfield I10 Essential 11:00a Claudine Correia MD (primary) hypertension Office Visit 10/13/2018 [facility] Internal Caty N30.00 Acute cystitis 11:10a Claudine Kearns M.D. without hematuria Office Visit 08/16/2018 [facility] Occupational Dallin S00.93xD Contusion of 2:02p Kody Stern MD unspecified part of head, subsequent encounter S09.90xD Unspecified injury of head, subsequent encounter Z04.2 Encounter for exam and observation following work accident Assessments Date Code Description Provider 02/09/2019 I10 Essential (primary) hypertension Garrett Francois M.D. 02/09/2019 K59.00 Constipation, unspecified Garrett Francois M.D. 02/09/2019 E03.9 Hypothyroidism, unspecified Garrett Francois M.D. 02/09/2019 K21.9 Gastro-esophageal reflux disease Garrett Francois M.D. without esophagitis 01/16/2019 K21.9 Gastro-esophageal reflux disease Brandee Mayfield MD without esophagitis 01/16/2019 M81.0 Age-related osteoporosis without Brandee Mayfield MD current pathological fracture 01/16/2019 M13.0 Polyarthritis, unspecified Brandee Mayfield MD 01/16/2019 H81.03 Meniere's disease, bilateral Brandee Mayfield MD 12/16/2018 I25.119 Atherosclerotic heart disease of Kaden Iglesias M.D., solomon coronary artery with [facility] 12/16/2018 I73.00 Raynaud's syndrome without gangrene Kaden Iglesias M.D. , [facility] 12/16/2018 I10 Essential (primary) hypertension Kaden Iglesias M.D., [facility] 12/16/2018 R94.31 Abnormal electrocardiogram [ECG] Kaden Iglesias M.D., [EKG] [facility] 11/25/2018 I10 Essential (primary) hypertension Brandee Mayfield [...] following work acc Plan of Treatment Future Appointment(s):02/22/2019 9:40 am - Brandee Mayfield MD at [facility] Internal Medicine - [facility]03/08/2019 1:00 pm - Kaden Iglesias M.D., FAC, FASNC at [facility]02/14/2019 3:00 pm - Markos Velasco M.D., [facility], FSCAI at [facility] AT [facility]05/09/2019 11:00 am - Brandee Mayfield MD at [facility] Internal Medicine - [facility]02/09/2019 - Garrett Francois M.D.I10 Essential ( primary) hypertensionComments:BP higher lately; continue usual Rx and take an extra dose of Losartan today along with a half tab of Diazepam. Recheck labs tomorrow to recheck [id number] Constipation, unspecifiedComments:Try Magnesium Citrate every other day for now if no spontaneous bowel [id number] Hypothyroidism, unspecifiedComments:TSH a bit high with hospital labs; check free T4K21.9 Gastro-esophageal reflux disease without esophagitisComments:Increased sx lately, but pt stopped her Omeprazole and never started the Pantoprazole last month. New Rx sent in. Functional Status Description No Information Available Mental Status Description No Information Available Referrals Description No Information Available
--- OUTSIDE RECORDS SUMMARY | 2019-03-29 12:14 | XMS REPORT | Continuity of Care Document ---
:1945 External Reference #:[id number] Author Name Vanessa Maldonado M.D. (transmitted by agent of provider Katelynn Mccauley) Address [address] [place] [address] Care Team Providers Name Role Phone Daren Root MD - Internal Care Team Information Edge Bander Operator [phone] Dallin Mills MD - Occupational Care Team Information Edge Bander Operator [phone] Medicine Brandee Mayfield M.D. - Family Medicine Care Team Information Edge Bander Operator Problems Active Problems Provider Date Occult blood in stools Daren Root M.D.,FACP Onset: 04/13/2017 Coronary arteriosclerosis Kaden Iglesias M.D., [facility], FASNC Onset: 2014 Iron deficiency anemia Daren Root M.D.,FACP Onset: 04/01/2017 Essential hypertension Daren Root M.D.,FACP Onset: 04/01/2017 Shane-en-Y gastrojejunostomy Daren Root M.D.,FACP Onset: 04/23/2017 Note: sees Dr. Weber Major depressive disorder Daren Root M.D.,FACP Onset: 04/23/2017 Fibromyalgia Daren Root M.D.,FACP Onset: 04/23/2017 Atherosclerotic heart disease of Kaden Iglesias M.D., [facility], Onset: 2018 pala coronary artery with FASNC unspecified angina pectoris [...] Brandee Mayfield MD 2018 40mg day Tablets Acetaminophen-Codeine one by mouth 90tabs M13.0 [...] 16units Sadi Jamil, 05/07/2018 each nostril one [employer]GRAM[employer] A[employer]LYST 50mcg/Act Suspension time a day for 1 week, then 1 spray thereafter Phenazopyridine HCL 2 tabs po tid as 24tabs Sadi Jamil, 01/04/2018 100mg needed [employer] PROGRAMMER ANALYST Tablets Blood Pressure Cuff use daily as 1units I10 Sadi Jamil, 09/29/2017 [facility] instructed to JAVA PROGRAMMER ANALYST check bp Gabapentin 2 tab at night 180tabs Brandee Mayfield MD 09/15/2017 600mg Tablets Losartan Potassium 1 by mouth every 90tabs I10 Brandee Mayfield MD 08/23/2017 25mg day Tablets Simvastatin 1 by mouth every 90tabs Brandee Mayfield MD 08/25/2013 20mg Tablets day Aspir-81 1 by mouth every Kaden Adwn 08/25/[address] reta Iglesias M.D., [facility] Cefdinir one tid Surekha IV , 300mg Capsules Atul Catalan M.D. Diltiazem CD 1 by mouth every 90caps Zsofiute Jamil, 240mg Caps day J[employer] PROGRAMMER ANALYST ER 24HR Diazepam 1/2 tab by mouth [...] 90caps Sadi Jamil, 60mg Caps DR day JAVA PROGRAMMER ANALYST Part Amitriptyline HCL 1 by mouth every 90tabs M79.7 Linoofiute Jamil, 50mg night at bedtime [employer] PROGRAMMER ANALYST Tablets History Medications Doxycycline take 2 tab by 2caps Sadi Jamil, 09/19/2018 - Monohydrate mouth today JAVA PROGRAMMER ANALYST 09/20/2018 100mg Capsules Omeprazole 1 by mouth every 90caps K21.9 Sadi Jamil, 09/17/2018 - 20mg mornings J[employer] PROGRAMMER ANALYST 01/16/2019 Capsules Medications Administered in Office Medication SIG Qnty Indications Ordering Provider Date Inj, Regadenoson, 0.1 MG Kaden Iglesias M.D., 10/08/2014 Injection ANTOINEFORD Technetium TC 99M Kaden Iglesias M.D., 10/08/2014 Tetrofosmin, Per Unit Dose Up FORD ARGUETA To 40 Millicuries Injection Depomedrol 80MG Flor Licona M.D. 05/03/2013 Injection Inj, Regadenoson, 0.1 MG Kaden Dawn Iglesias, M.D., 08/08/2012 Injection FORD ARGUETA Aminophylline Kaden Iglesias M.D., 08/08/2012 Injection FORD ARGUETA Technetium TC 99M Kaden Iglesias M.D., 08/08/2012 Tetrofosmin, Per Unit Dose Up FORD ARGUETA To 40 Millicuries Injection Immunizations CPT Code Status Date Vaccine Lot # [id number] Given 02/06/2017 Pneumonia Vaccine [id number] Given 02/06/2017 Influenza Virus Vaccine, Quadrivalent, Split, [...] Result H/L Range Note Laboratory test 02/06/2019 [facility] Troponin-I 0.01 ng/mL < 0.04 [address] (TnI) [place] [address] [phone] CBC Auto Diff 02/06/2019 [facility] White Blood 3.5 10^3/uL Normal 3.5-10.[address] [place] [address] [phone] Red Blood Count 4.57 10^6/uL Normal 3.70-4.87 [...] Red Blood Cells % 0.0 Inr/Protime 02/06/2019 [facility] Inr 0.98 Normal 0.82-1.09 2 [address] [place] [address] [phone] Comp Metabolic 02/06/2019 [facility] Sodium 139 mmol/L Normal 135-145 Panel [address] [place] [address] [phone] Potassium 3.7 mmol/L Normal 3.5-5.0 Chloride 101 [...] Egfr 45.9 >60 3 Laboratory test 02/06/2019 [facility] Troponin-I (TnI) 0.00 ng/ mL <0.04 4 finding [address] [place] [address] [phone] Magnesium 2.4 mg/dL Normal 1.9-2.7 TSH (Thyroid Stim Horm) 6.64 mcIU/mL High 0.34-5.60 Vitamin B12 405 pg/mL Normal 180-914 5 CBC Auto 02/02/2019 [facility] White Blood 4.0 10^3/uL Normal 3.5-10.[address] [place] [address] [phone] Red Blood Count 4.24 10^6/uL Normal 3.70-4.87 [...] Blood Cells % 0.1 Comp Metabolic 02/02/2019 [facility] Sodium 139 mmol/L Normal 135-[address] [place] [address] [phone] Potassium 3.4 mmol/L Low 3.5-5.0 Chloride 103 [...] Egfr 46.6 >60 6 Laboratory test 02/02/2019 [facility] Lipase 17 U/L Normal 11.0-82.[address] [place] [address] [phone] C Reactive Protein < 1.00 mg/L Normal <8.01 Lactic Acid 0.7 mmol/L Normal 0.5-2.0 7 Urinalysis Profile 02/02/2019 [facility] Urine Color Colorless [address] [place] [address] [phone] Urine Appearance Clear Urine Specific [place] 1.003 Low 1.010-1.030 Urine pH 7.0 Normal 5-9 Urine Urobilinogen Negative Negative Urine Ketones Negative Negative Urine Protein Negative Negative Urine Leukocytes Negative Negative Urine Blood Negative Negative Urine Nitrite Negative Negative Urine Bilirubin Negative Negative Urine Glucose Negative Negative CBC Auto 10/11/2018 [facility] White Blood 12.5 10^3/uL High 3.5-10.[address] [place] [address] [phone] Red Blood Count 4.45 10^6/uL Normal 3.70-4.87 [...] Blood Cells % 0.1 Basic Metabolic 10/11/2018 [facility] Sodium 139 mmol/L Normal 135-145 Panel [address] [place] [address] [phone] Chloride 103 mmol/L Normal 101-111 Co2 Carbon Dioxide 27 mmol/L Normal 22-32 Glucose 105 mg/dL High 70-100 Blood Urea Nitrogen 20 mg/dL Normal 6-24 Creatinine 1.17 mg/dL High 0.51-0.95 BUN/Creatinine Ratio 17.1 Normal 8-20 Calcium 9.4 mg/dL Normal 8.6-10.3 Egfr Non- 45.5 >60 Egfr 55.0 >60 8 Potassium TNP mmol/L 3.5-5.0 9 Anion Gap 9 mmol/L Normal 2-11 Laboratory test 10/11/2018 [facility] Lactic Acid 0.8 mmol/L Normal 0.5-2.0 10 finding [address] [place] [address] [phone] 1 Troponin-I testing on Plasma Separator Tubes (PST) has a known false positive rate of 0.20-0.40%. All positive troponins reflex immediately to secondary confirmatory testing. Using the [employer] ([employer])I 800 Access Immunoassay systems, the 99th percentile [...] immediately to secondary confirmatory testing. Using the [employer] DxI 800 Access Immunoassay systems, the 99th [...] 5 Kidney failure <15 (or dialysis) 7 [facility] Severe Sepsis and Septic Shock Management [...] report test result due to hemolysis. 10 [facility] Severe Sepsis and Septic Shock Management Bundle Measure requires all lactic acids initially measuring >2.0 mmol/L be repeated. Procedures Date Code Description Status 12/16/2018 73160 EKG Tracing & Interpretation Completed 06/02/2018 [id number] Bone Mineral Density Test Completed 06/02/2018 [id number] Mammogram Completed 07/14/2016 [id number] Mammogram Completed 07/03/2016 [id number] Colonoscopy Completed 06/26/2016 [id number] Colonoscopy Completed 09/06/2013 [id number] Mammogram Completed Medical Devices Description No Information Available Encounters Type Date Location Provider Dx Diagnosis Office Visit 01/16/2019 [facility] Internal Brandee Mayfield MD K21.9 Gastro- esophageal 3:00p Claudine Correia reflux disease without esophagitis M81.0 Age-related osteoporosis w/o current pathological fracture M13.0 Polyarthritis, unspecified H81.03 Meniere's disease, bilateral Office Visit 12/16/2018 11:00a [facility] Kaden López I25.119 [facility] Maggy Iglesias M.D., disease of FACC, FASNC pala cor art w unsp ang pctrs I73.00 Raynaud's syndrome without gangrene I10 Essential (primary) hypertension R94.31 Abnormal electrocardiogram [ECG] [EKG] Office Visit 11/25/2018 [facility] Internal Brandee Mayfield, I10 Essential 11:00a Claudine Correia MD (primary) hypertension Office Visit 10/13/2018 [facility] Internal Caty N30.00 Acute cystitis 11:10a Claudine Kearns M.D. without hematuria Office Visit 08/16/2018 [facility] Occupational Dallin S00.93xD Contusion of 2:02p Kody [...] Atherosclerotic heart disease of Kaden Iglesias M.D., pala coronary artery with [facility] 12/16/2018 I73.00 Raynaud's syndrome without gangrene Kaden Iglesias M.D. , [facility], [facility] 12/16/2018 I10 Essential (primary) hypertension Kaedn Iglesias M.D., [facility] 12/16/2018 R94.31 Abnormal electrocardiogram [ECG] Kaden Iglesias M.D., [EKG] [facility] 11/25/2018 I10 Essential (primary) hypertension Brandee [...] 9:40 am - Brandee Mayfield MD at [facility] 1:00 pm - Kaden Iglesias M.D., [facility], [facility] at [facility]02/14/2019 3:00 pm - Markos Velasco M.D., [place], [facility] at [facility] AT [facility] [place]/09/2019 11:00 am - Brandee Mayfield MD at [facility] - [facility] Functional Status Description No Information Available Mental Status Description No Information Available Referrals Description No Information Available
--- OUTSIDE RECORDS SUMMARY | 2019-03-29 12:14 | XMS REPORT | Continuity of Care Document ---
:1945 External Reference #:[id number] Author Name Hiral Corey MD (transmitted by agent of provider Michelle Aparicio) Address [address] [place] [address] Care Team Providers Name Role Phone Daren Root MD - Internal Care Team Information Drafter Electronic Medicine Dallin Stern MD - Occupational Care Team Information Drafter Electronic [phone] Medicine Brandee Mayfield M.D. - Family Medicine Care Team Information Drafter Electronic Problems Active Problems Provider Date Occult blood in stools Daren Root M.D.,FACP Onset: 04/13/2017 Coronary arteriosclerosis Kaden Iglesias M.D., [place], FASNC Onset: 2014 Iron deficiency anemia Daren Root M.D.,FACP Onset: 04/01/2017 Essential hypertension Daren Root M.D.,FACP Onset: 04/01/2017 Shane-en-Y gastrojejunostomy Daren Root M.D.,FACP Onset: 04/23/2017 Note: sees Dr. Weber Major depressive disorder Daren Root M.D.,FACP Onset: 04/23/2017 Fibromyalgia Daren Root M.D.,ANTOINEP Onset: 04/23/2017 Atherosclerotic heart disease of Kaden Iglesias M.D., [facility], Onset: 2018 [place] coronary artery with FASNC unspecified angina pectoris Encounter for planned postprocedural Markos Velasco M.D., [facility], FSCAI Onset: wound closure Left bundle branch block Markos Velasco M.D., [facility], [facility] Onset: 02/14/2019 Chest pain Kaden Iglesias M.D., [facility], Onset: 03/08/2019 FASNE Social History Type Date Description Comments Sex Unknown Tobacco Use Start: Unknown Never Smoked Cigarettes Smoking Status Reviewed: 03/24/19 Never Smoked Cigarettes ETOH Use Denies alcohol [...] Medications SIG Qnty Indications Ordering Date Provider Losartan Potassium 1 by mouth every 90tabs I10 Brandee Mayfield MD 02/22/2019 100mg day Tablets Pantoprazole Sodium 1 by mouth every 90tabs K21.9 Brandee Mayfield MD [address] Acetaminophen-Codeine one by mouth 90tabs M13.0 Brandee Mayfield MD 01/16/2019 #4 every 6 hours as 300-60mg Tablets needed for pain Prolia one sc every 6 1ml M81.0 Brandee Mayfield MD 01/16/2019 60mg/ml Soln months Prefill Syringe Ranitidine HCL take one tablet 60tabs Brandee Mayfield MD 09/17/2018 150mg by mouth daily as Tablets needed Fluticasone Propionate use 2 sprays in 16units Linoofiute Jamil, 05/07/2018 each nostril one DESIGNER/WRITER 50mcg/Act Suspension time a day for 1 week, then 1 spray thereafter Phenazopyridine HCL 2 tabs po tid as 24tabs Linoofiute Jamil, 01/04/2018 100mg needed DESIGNER/WRITER Tablets Blood Pressure Cuff use daily as 1units I10 Sadi Jamil, 09/29/2017 Misc instructed to DESIGNER/WRITER check bp Gabapentin 2 tab at night 180tabs Brandee Mayfield MD 09/15/2017 600mg Tablets Simvastatin 1 by mouth every 90tabs Brandee Mayfield MD 08/25/2013 20mg Tablets day Aspir-81 1 by mouth every Kaden Dawn 08/25/[address] reta Iglesias M.D., [facility], [facility] Carafate one tablet on Unknown 1gm Tablets empty stomach one hour before meals daily. (3xdaily) Diltiazem CD 1 by mouth every 90caps Linoofiute Jamil, 240mg Caps day DESIGNER/WRITER ER 24HR Diazepam 1/2 tab by mouth [...] every 90caps Sadi Jamil, 60mg Caps DR reta DESIGNER/WRITER Part Amitriptyline HCL 1 by mouth every 90tabs M79.7 Sadi Jamil, 50mg night at bedtime DESIGNER/WRITER Tablets History Medications Losartan Potassium one pill a day 90tabs I10 Markos Velasco M.D., 2018 - [facility], [facility] 02/22/2019 50mg Tablets Medications Administered in Office Medication SIG Qnty Indications Ordering Provider Date Prolia Injection, Denosumab, Nurse Visit A 03/09/2019 1MG Injection Inj, Regadenoson, 0.1 MG Kaden Iglesias M.D., 10/08/2014 Injection [facility], [facility] Technetium TC 99M Kaden Iglesias M.D., 10/08/2014 Tetrofosmin, Per Unit Dose Up [facility], [facility] To 40 Millicuries Injection Depomedrol 80MG Flor Licona M.D. 05/03/2013 Injection Inj, Regadenoson, 0.1 MG Kaden Iglesias M.D., 08/08/2012 Injection FAC, [facility] Aminophylline Kaden Iglesias M.D., 08/08/2012 Injection [facility], [facility] Technetium TC 99M Kaden Iglesias M.D., 08/08/2012 Tetrofosmin, Per Unit Dose Up [facility], [facility] To 40 Millicuries Injection Immunizations CPT Code Status Date Vaccine Lot # [id number] Given 02/15/2019 Influenza Virus Vaccine, Quadrivalent, Split, Im Use 6-35mo [id number] Given 02/06/2017 Pneumonia Vaccine 92508 Given 02/06/2017 Influenza Virus Vaccine, Quadrivalent, Split, Preservative Free Vital Signs Date Vital Result Comment 03/24/2019 9:26am Height 65 inches 5'5" Weight 162.00 lb Heart Rate 70 /min BP Systolic Sitting 161 mmHg left arm reg cuff BP Diastolic Sitting 77 mmHg left arm reg cuff O2 % BldC Oximetry 100 % room air BMI (Body Mass Index) 27.0 kg/m2 03/08/2019 12:44pm Height 65 inches 5'5" Weight 162.00 lb Heart Rate 57 /min BP Systolic Sitting 138 mmHg Rue reg cuff BP Diastolic Sitting 70 mmHg Rue reg cuff BP Systolic Standing 136 mmHg RUe reg cuff BP Diastolic Standing 70 mmHg RUe reg cuff Respiratory Rate 13 /min BMI (Body Mass Index) 27.0 kg/m2 Ejection Fraction 55-60% ECHO 02/07/2019 Results Test Date Facility Test Result H/L Range Note Basic Metabolic 02/22/2019 [facility] Sodium 140 mmol/L Normal 135-[address] [place] [address] [phone] Potassium 4.1 mmol/L Normal 3.5-5.0 Chloride 104 mmol/L Normal 101-111 Co2 Carbon Dioxide 31 mmol/L Normal 22-32 Anion Gap 5 mmol/L Normal 2-11 Glucose 86 mg/dL Normal 70-100 Blood Urea Nitrogen 23 mg/dL Normal 6-24 Creatinine 1.44 mg/dL High 0.51-0.95 BUN/Creatinine Ratio 16.0 Normal 8-20 Calcium 9.5 mg/dL Normal 8.6-10.3 Egfr Non- 35.8 >60 Egfr 43.3 >60 1 Basic Metabolic 02/10/2019 [facility] Sodium 139 mmol/L Normal 135-145 Panel [address] [place] [address] [phone] Potassium 4.0 mmol/L Normal 3.5-5.0 Chloride 101 mmol/L Normal 101-111 Co2 Carbon Dioxide 35 mmol/L High 22-32 Anion Gap 3 mmol/L Normal 2-11 Glucose 93 mg/dL Normal 70-100 Blood Urea Nitrogen 20 mg/dL Normal 6-24 Creatinine 1.35 mg/dL High 0.51-0.95 BUN/Creatinine Ratio 14.8 Normal 8-20 Calcium 9.6 mg/dL Normal 8.6-10.3 Egfr Non- 38.5 >60 Egfr 46.6 >60 2 Laboratory test 02/10/2019 [facility] Magnesium 2.1 mg/dL Normal 1.9-2.[address] [place] [address] [phone] Free T4 (Free Thyroxine) 0.95 ng/dL Normal 0.61-1.12 Laboratory test 02/06/2019 [facility] Troponin-I 0.01 <0.04 3 finding [address] [facility] (TnI) ng/[place] [address] [phone] CBC Auto Diff 02/06/2019 [facility] White Blood 3.5 Normal 3.5 -10.[address] Count 10^3/[place] [address] [phone] Red Blood Count 4.57 10^6/uL Normal 3.70-4.87 [...] Red Blood Cells % 0.0 Inr/Protime 02/06/2019 [facility] Inr 0.98 Normal 0.82-1.09 4 [address] [place] [address] [phone] Comp Metabolic 02/06/2019 [facility] Sodium 139 mmol/L Normal 135-145 Panel [address] [place] [address] [phone] Potassium 3.7 mmol/L Normal 3.5-5.0 Chloride 101 [...] Egfr Non- 37.9 >60 Egfr 45.9 >60 5 Laboratory test 02/06/2019 [facility] Troponin-I (TnI) 0.00 ng/ mL <0.04 6 finding [address] [place] [address] [phone] Magnesium 2.4 mg/dL Normal 1.9-2.7 TSH (Thyroid Stim Horm) 6.64 mcIU/mL High 0.34-5.60 Vitamin B12 405 pg/mL Normal 180-914 7 Urinalysis Profile 02/02/2019 [facility] Urine Color Colorless [address] [place] [address] [phone] Urine Appearance Clear Urine Specific [place] 1.003 Low 1.010-1.030 Urine pH 7.0 Normal 5-9 Urine Urobilinogen Negative Negative Urine Ketones Negative Negative Urine Protein Negative Negative Urine Leukocytes Negative Negative Urine Blood Negative Negative Urine Nitrite Negative Negative Urine Bilirubin Negative Negative Urine Glucose Negative Negative Laboratory test 02/02/2019 [facility] Lipase 17 U/L Normal 11.0-82.0 finding [address] [place] [address] [phone] C Reactive Protein < 1.00 mg/L Normal <8.01 Lactic Acid 0.7 mmol/L Normal 0.5-2.0 8 Comp Metabolic 02/02/2019 [facility] Sodium 139 mmol/L Normal 135-145 Panel [address] [place] [address] [phone] Potassium 3.4 mmol/L Low 3.5-5.0 Chloride 103 [...] Egfr Non- 38.5 >60 Egfr 46.6 >60 9 CBC Auto 02/02/2019 [facility] White Blood 4.0 10^3/uL Normal 3.5-10.8 Diff [address] [facility] [place] [address] [phone] Red Blood Count 4.24 10^6/uL Normal 3.70-4.87 [...] % Nucleated Red Blood Cells % 0.1 CBC Auto 10/11/2018 [facility] White Blood 12.5 10^3/uL High 3.5-10.[address] [place] [address] [phone] Red Blood Count 4.45 10^6/uL Normal 3.70-4.87 [...] Blood Cells % 0.1 Basic Metabolic 10/11/2018 [facility] Sodium 139 mmol/L Normal 135-[address] [place] [address] [phone] Chloride 103 mmol/L Normal 101-111 Co2 Carbon Dioxide 27 mmol/L Normal 22-32 Glucose 105 mg/dL High 70-100 Blood Urea Nitrogen 20 mg/dL Normal 6-24 Creatinine 1.17 mg/dL High 0.51-0.95 BUN/Creatinine Ratio 17.1 Normal 8-20 Calcium 9.4 mg/dL Normal 8.6-10.3 Egfr Non- 45.5 >60 Egfr 55.0 >60 10 Potassium TNP mmol/L 3.5-5.0 11 Anion Gap 9 mmol/L Normal 2-11 Laboratory test 10/11/2018 [facility] Lactic Acid 0.8 mmol/L Normal 0.5-2.0 12 finding [address] [place] [address] [phone] 1 Because ethnic data is not always [...] 5 Kidney failure <15 (or dialysis) 2 Because ethnic data is not always readily [...] 15-29 5 Kidney failure <15 (or dialysis) 3 Troponin-I testing on Plasma Separator Tubes (PST) has a known false positive rate of 0.20-0.40%. All positive troponins reflex immediately to secondary confirmatory testing. Using the [employer] DxI 800 Access Immunoassay systems, the 99th percentile upper reference limit was demonstrated to be < 0.03 ng/mL. 4 Standard intensity warfarin therapeutic range: 2.0-3.0 High intensity warfarin therapeutic range: 2.5-3.5 5 Because ethnic data is not always readily [...] 15-29 5 Kidney failure <15 (or dialysis) 6 Troponin-I testing on Plasma Separator Tubes (PST) has a known false positive rate of 0.20-0.40%. All positive troponins reflex immediately to secondary confirmatory testing. Using the [employer] DxI 800 Access Immunoassay systems, the 99th percentile upper reference limit was demonstrated to be < 0.03 ng/mL. 7 Normal Range 180 to 914 Indeterminate Range 145 to 180 Deficient Range <145 8 [facility] Severe Sepsis and Septic Shock Management Bundle Measure requires all lactic acids initially measuring >2.0 mmol/L be repeated. 9 Because ethnic data is not always readily [...] 15-29 5 Kidney failure <15 (or dialysis) 10 Because ethnic data is not always [...] 5 Kidney failure <15 (or dialysis) 11 Specimen Hemolyzed. Result may not be valid. Unable to report test result due to hemolysis. 12 [facility] Severe Sepsis and Septic Shock Management Bundle Measure requires all lactic acids initially measuring >2.0 mmol/L be repeated. Procedures Date Code Description Status 03/09/2019 19335 Admin Of Inj Completed 03/08/2019 51882 EKG Tracing & Interpretation Completed 02/07/2019 91270 EKG, Interpretation Only Completed 02/07/2019 44934 ECHO Transthorasic Realtime 2D W Doppler & Color Flow Completed Hosp 02/06/2019 54752 EKG, Interpretation Only Completed 02/06/2019 54564 Cath PLMT&NJX L Ventriculog Img S&I Completed 12/16/2018 86726 EKG Tracing & Interpretation Completed 06/02/2018 [id number] Bone Mineral Density Test Completed 06/02/2018 [id number] Mammogram Completed 07/14/2016 [id number] Mammogram Completed 07/03/2016 [id number] Colonoscopy Completed 06/26/2016 [id number] Colonoscopy Completed 09/06/2013 [id number] Mammogram Completed Medical Devices Description No Information Available Encounters Type Date Location Provider Dx Diagnosis Office Visit 03/08/2019 [facility] Kaden López R07.9 Chest pain, 1:00p Of Maggy Iglesias M.D., unspecified FACC, FASNE I10 Essential (primary) hypertension R94.31 Abnormal electrocardiogram [ECG] [EKG] I25.10 Athscl heart disease of [place] coronary artery w/o ang pctrs Office Visit 02/22/2019 9:40a [facility] Internal Brandee Mayfield, I10 Essential Medicine - Bren DAVIS (primary) hypertension Office Visit 02/14/2019 3:00p [facility] Markos Velasco, Z48.812 [facility] Of [place], FACC, surgical aftcr Supervisor [employer] AT [facility] following surgery on the circ sys I10 Essential (primary) hypertension I44.7 Left bundle-branch block, unspecified Office Visit 02/09/2019 4:00p [facility] Internal Garrett Sinclair I10 Essential ( primary) Medicine - Bren Francois M.D. hypertension K59.00 Constipation, unspecified E03.9 Hypothyroidism, unspecified K21.9 Gastro-esophageal reflux disease without esophagitis Office Visit 02/08/2019 9:51a [facility] Leeann Guzman MD R07.89 Other chest pain Assoc,pc Hospitalists Office Visit 02/06/2019 9:41a [facility] Michelle R07.9 Chest pain, Assoc,pc MARIO ALBERTO Sanchez unspecified Hospitalists K59.00 Constipation, unspecified Office Visit 01/16/2019 [facility] Internal Brandee Myafield K21.9 Gastro-esophageal 3:00p Medicine - reflux disease without [facility] esophagitis M81.0 Age-related osteoporosis w/o current pathological fracture M13.0 Polyarthritis, unspecified H81.03 Meniere's disease, bilateral Office Visit 12/16/2018 11:00a [facility] Kaden Dawn I25.119 Athscl heart Of Maggy Iglesias M.D., disease of [facility], [facility] [place] cor art w unsp ang pctrs I73.00 Raynaud's syndrome without gangrene I10 Essential (primary) hypertension R94.31 Abnormal electrocardiogram [ECG] [EKG] Office Visit 11/25/2018 11:00a [facility] Internal Brandee Mayfield, I10 Essential ( primary) Medicine - hypertension [facility] Office Visit 10/13/2018 11:10a [facility] Internal Caty N30.00 Acute cystitis Claudine Kearns M.D. without hematuria [facility] Assessments Date Code Description Provider 03/24/2019 I10 Essential (primary) hypertension Hiral Corey MD 03/24/2019 I12.9 Hypertensive chronic kidney disease Hiral Corey MD with stage 1 through stage 4 chronic kidney disease, or unspecified chronic kidney disease 03/24/2019 E78.5 Hyperlipidemia, unspecified Hiral Corey MD 03/24/2019 N18.3 Chronic kidney disease, stage 3 Hiral Corey MD (moderate) 03/09/2019 M81.0 Age-related osteoporosis without Nurse Visit A current pathological fracture 03/08/2019 R07.9 Chest pain, unspecified Kaden Iglesias M.D., [facility], [facility] 03/08/2019 I10 Essential (primary) hypertension Kaden Iglesias M.D., [facility] 03/08/2019 R94.31 Abnormal electrocardiogram [ECG] [EKG] Kaden Iglesias M.D., [facility], [facility] 03/08/2019 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 Iglesias M.D., [place] coronary artery without angina [facility] pectoris 02/22/2019 I10 Essential (primary) hypertension Brandee Mayfield MD 02/14/2019 Z48.812 Encounter for surgical aftercare Markos Velasco M.D., [facility], following surgery on the circulatory [facility] system 02/14/2019 I10 Essential (primary) hypertension Markos Velasco M.D., [facility], [facility] 02/14/2019 I44.7 Left bundle-branch block, unspecified Markos Velasco M.D., [facility], [facility] 02/09/2019 I10 Essential (primary) hypertension Garrett Francois M.D. 02/09/2019 K59.00 Constipation, unspecified Garrett Francois M.D. 02/09/2019 E03.9 Hypothyroidism, unspecified Garrett Francois M.D. 02/09/2019 K21.9 Gastro-esophageal reflux disease Garrett Francois M.D. without esophagitis 02/08/2019 R07.89 Other chest pain Leeann Guzman MD 02/07/2019 R94.31 Abnormal electrocardiogram [ECG] [EKG] Vanessa Maldonado M.D. 02/07/2019 R07.9 Chest pain, unspecified Freddy Carter M.D. 02/07/2019 R07.89 Other chest pain Leeann Guzman MD 02/07/2019 K21.9 Gastro-esophageal reflux disease Leeann Guzman MD without esophagitis 02/07/2019 K59.00 Constipation, chrisified Leeann Guzman MD 02/06/2019 R94.31 Abnormal electrocardiogram [ECG] [EKG] Vanessa Maldonado M.D. 02/06/2019 R07.9 Chest pain, unspecified Michelle Theresa, [employer] PROCESSING TECHNICIAN 02/06/2019 R07.89 Other chest pain Veto Chi MD, [facility], [facility] 02/06/2019 K59.00 Constipation, unspecified Michelle Theresa, TAR PROCESSING TECHNICIAN 01/16/2019 K21.9 Gastro-esophageal reflux disease Brandee Mayfield MD without esophagitis 01/16/2019 M81.0 Age-related osteoporosis without Brandee Mayfield MD current pathological fracture 01/16/2019 M13.0 Polyarthritis, unspecified Brandee Mayfield MD 01/16/2019 H81.03 Meniere's disease, bilateral Brandee Mayfield MD 12/16/2018 I25.119 Atherosclerotic heart disease of Kaden Iglesias M.D., [place] coronary artery with [facility], [facility] 12/16/2018 I73.00 Raynaud's syndrome without gangrene Kaden Iglesias M.D. , [facility], [facility] 12/16/2018 I10 Essential (primary) hypertension Kaden Iglesias M.D., [facility], [facility] 12/16/2018 R94.31 Abnormal electrocardiogram [ECG] [EKG] Kaden Iglesias M.D., [facility], [facility] 11/25/2018 I10 Essential (primary) hypertension Brandee Mayfeild MD 10/13/2018 N30.00 Acute cystitis without hematuria Caty Kearns M.D. Plan of Treatment Future Appointment(s):06/29/2019 10:00 am - Hiral Corey MD at [facility] Khnkzjiqmn22/10/2019 11:00 am - Brandee Mayfield MD at [facility] Internal Medicine - Ccmob03/24/2019 - Hiral Corey MDI10 Essential (primary) [id number] Hypertensive chronic kidney disease with stage 1 through stage 4 chronic kidney disease, or unspecified chronic kidney [id number] Hyperlipidemia, unspecifiedFollow up:3 [id number] Chronic kidney disease, stage 3 (moderate) Functional Status Description No Information Available Mental Status Description No Information Available Referrals Refer to Dr Reason for Referral Status Appt Date Hiral Corey MD pls evaluate pt with recent decline in GFR Sent 03/[address] [place] [address] [phone]
--- OUTSIDE RECORDS SUMMARY | 2019-03-29 12:14 | XMS REPORT | Continuity of Care Document ---
:1945 External Reference #:[id number] Author Name Markos Velasco M.D., [facility], [facility] (transmitted by agent of provider Rosa Glez) Address [address] [place] [id number] Care Team Providers Name Role Phone Daren Root MD - Internal Care Team Information Day Worker Dallin Mills MD - Occupational Care Team Information Day Worker Medicine Brandee Mayfield M.D. - Family Medicine Care Team Information Day Worker [phone] Problems Active Problems Provider Date Occult blood in stools Daren Root M.D.,FACP Onset: 04/13/2017 Coronary arteriosclerosis Kaden Iglesias M.D., [facility], [facility] Onset: 2014 Iron deficiency anemia Daren Root M.D.,FACP Onset: 04/01/2017 Essential hypertension [facility].D.,[facility] Onset: 04/01/2017 Shane-en-Y gastrojejunostomy Daren Root M.D.,FACP Onset: 04/23/2017 Note: sees Dr. Weber Major depressive disorder Daren Root M.D.,[facility] Onset: 04/23/2017 Fibromyalgia Daren Root M.D.,[facility] Onset: 04/23/2017 Left bundle branch block Markos Velasco M.D., [facility], [facility] Onset: 02/14/2019 Encounter for planned postprocedural Markos Velasco M.D., [facility], [facility] Onset: wound closure Atherosclerotic heart disease of Kaden López Iglesias M.D., [facility], Onset: 2018 redding coronary artery with FASNC unspecified angina pectoris Social History Type Date Description Comments Sex Unknown Tobacco Use Start: Unknown Never Smoked Cigarettes Smoking Status Reviewed: 02/14/19 Never Smoked Cigarettes ETOH Use Denies alcohol [...] Qnty Indications Ordering Date Provider Losartan Potassium one pill a day 90tabs I10 Markos Velasco, 02/14/2019 50mg Jason, [facility], Tablets [facility] Pantoprazole Sodium 1 by mouth every 30tabs K21.9 Garrett E. 01/16/2019 40mg reta Francois M.D. Tablets DR Dyer-Codeine one by mouth 90tabs M13.0 Brandee Mayfield [...] 16units Linoofiute Jamil, 05/07/2018 each nostril one [employer] 50mcg/Act Suspension time a day for 1 week, then 1 spray thereafter Phenazopyridine HCL 2 tabs po tid as 24tabs Linoofiute Jamil, 01/04/2018 100mg needed [employer] Tablets Blood Pressure Cuff use daily as 1units I10 Sadi Jamil, [facility] bp Gabapentin 2 tab at night 180tabs Brandee Mayfield MD 09/15/2017 600mg Tablets Simvastatin 1 by mouth every 90tabs Brandee Mayfield MD 08/25/2013 20mg Tablets day Aspir-81 1 by mouth every Kaden Dawn 08/25/[address] reta Iglesias M.D., [facility], [facility] Diltiazem CD 1 by mouth every 90caps Sadi Jamil, 240mg Caps day [employer] ER 24HR Diazepam 1/2 tab by mouth [...] 90caps Sadi Jamil, 60mg Caps DR day [employer] Part Amitriptyline HCL 1 by mouth every 90tabs M79.7 Sadi Jamil, 50mg night at bedtime [employer] Tablets History Medications Doxycycline take 2 tab by 2caps Sadi Jamil, 09/19/2018 - Monohydrate mouth today [employer] 09/20/2018 100mg Capsules Omeprazole 1 by mouth every 90caps K21.9 Sadi Jamil, 09/17/2018 - 20mg mornings [employer] 01/16/2019 Capsules Medications Administered in Office Medication SIG Qnty Indications Ordering Provider Date Inj, Regadenoson, 0.1 MG Kaden Iglesias M.D., 10/08/[address] [facility], [facility] Technetium TC 99M Kaden Iglesias M.D., 10/08/2014 Tetrofosmin, Per Unit Dose [facility] To [facility] Millic[facility] Injection Depomedrol 80MG Flor Licona M.D. 05/03/2013 Injection Inj, Regadenoson, 0.1 MG Kaden Iglesias M.D., 08/08/[address] [facility] Aminophylline Kaden Iglesias M.D., 08/08/[address] [facility] Technetium TC 99M Kaden Iglesias M.D., 08/08/2012 Tetrofosmin, Per Unit Dose Up FACC, FASNC To 40 Millicuries Injection Immunizations CPT Code Status Date Vaccine Lot # [id number] Given 02/06/2017 Pneumonia Vaccine [id number] Given 02/06/2017 Influenza Virus Vaccine, Quadrivalent, Split, Preservative Free Vital Signs Date Vital Result Comment 02/14/2019 3:08pm Height 65 inches 5'5" Weight 158.00 lb with shoes BP Systolic Sitting 158 mmHg Lue reg cuff BP Diastolic Sitting 62 mmHg Lue reg cuff BP Systolic Standing 156 mmHg Lue reg cuff BP Diastolic Standing 60 mmHg Lue reg cuff BMI (Body Mass Index) 26.3 kg/m2 Ejection Fraction 55-60% ECHO 02/07/19 02/09/2019 3:58pm Height 65 inches 5'5" Weight 162.00 lb Heart Rate 61 /min BP Systolic Sitting 199 mmHg BP Diastolic Sitting 79 mmHg BMI (Body Mass Index) 27.0 kg/m2 Results Test Date Facility Test Result H/L Range Note Basic Metabolic 02/10/2019 [facility] Sodium 139 mmol/L Normal 135-145 Panel [address] [place] [address] [phone] Potassium 4.0 mmol/L Normal 3.5-5.0 Chloride 101 mmol/L Normal 101-111 Co2 Carbon Dioxide 35 mmol/L High 22-32 Anion Gap 3 mmol/L Normal 2-11 Glucose 93 mg/dL Normal 70-100 Blood Urea Nitrogen 20 mg/dL Normal 6-24 Creatinine 1.35 mg/dL High 0.51-0.95 BUN/Creatinine Ratio 14.8 Normal 8-20 Calcium 9.6 mg/dL Normal 8.6-10.3 Egfr Non- 38.5 >60 Egfr 46.6 >60 1 Laboratory test 02/10/2019 [facility] Magnesium 2.1 mg/dL Normal 1.9-2.[address] [place] [address] [phone] Free T4 (Free Thyroxine) 0.95 ng/dL Normal 0.61-1.12 Laboratory test 02/06/2019 [facility] Troponin-I 0.01 <0.04 2 finding 101 (TnI) ng/[place] [address] [phone] CBC Auto Diff 02/06/2019 [facility] White Blood 3.5 Normal 3.5 -10.[address] Count 10^3/[place] [address] [phone] Red Blood Count 4.57 10^6/uL Normal 3.70-4.87 [...] Red Blood Cells % 0.0 Inr/Protime 02/06/2019 [facility] Inr 0.98 Normal 0.82-1.[address] [place] [address] [phone] Comp Metabolic 02/06/2019 [facility] Sodium 139 mmol/L Normal 135-[address] [place] [address] [phone] Potassium 3.7 mmol/L Normal 3.5-5.0 Chloride 101 [...] Egfr Non- 37.9 >60 Egfr 45.9 >60 4 Laboratory test 02/06/2019 [facility] Troponin-I (TnI) 0.00 ng/ mL <0.04 [address] [place] [address] [phone] Magnesium 2.4 mg/dL Normal 1.9-2.7 TSH (Thyroid Stim Horm) 6.64 mcIU/mL High 0.34-5.60 Vitamin B12 405 pg/mL Normal 180-914 6 CBC Auto 02/02/2019 [facility] White Blood 4.0 10^3/uL Normal 3.5-10.[address] [place] [address] [phone] Red Blood Count 4.24 10^6/uL Normal 3.70-4.87 [...] Blood Cells % 0.1 Comp Metabolic 02/02/2019 [facility] Sodium 139 mmol/L Normal 135-145 Panel [address] [place] [address] [phone] Potassium 3.4 mmol/L Low 3.5-5.0 Chloride 103 [...] Egfr Non- 38.5 >60 Egfr 46.6 >60 7 Laboratory test 02/02/2019 [facility] Lipase 17 U/L Normal 11.0-82.0 finding [address] [place] [address] [phone] C Reactive Protein < 1.00 mg/L Normal <8.01 Lactic Acid 0.7 mmol/L Normal 0.5-2.0 8 Urinalysis Profile 02/02/2019 [facility] Urine Color Colorless [address] [place] [address] [phone] Urine Appearance Clear Urine Specific Butler 1.003 Low 1.010-1.030 Urine pH 7.0 Normal 5-9 Urine Urobilinogen Negative Negative Urine Ketones Negative Negative Urine Protein Negative Negative Urine Leukocytes Negative Negative Urine Blood Negative Negative Urine Nitrite Negative Negative Urine Bilirubin Negative Negative Urine Glucose Negative Negative CBC Auto 10/11/2018 [facility] White Blood 12.5 10^3/uL High 3.5-10.[address] [place] [address] [phone] Red Blood Count 4.45 10^6/uL Normal 3.70-4.87 [...] Blood Cells % 0.1 Basic Metabolic 10/11/2018 [facility] Sodium 139 mmol/L Normal 135-[address] [place] [address] [phone] Chloride 103 mmol/L Normal 101-111 Co2 Carbon Dioxide 27 mmol/L Normal 22-32 Glucose 105 mg/dL High 70-100 Blood Urea Nitrogen 20 mg/dL Normal 6-24 Creatinine 1.17 mg/dL High 0.51-0.95 BUN/Creatinine Ratio 17.1 Normal 8-20 Calcium 9.4 mg/dL Normal 8.6-10.3 Egfr Non- 45.5 >60 Egfr 55.0 >60 9 Potassium TNP mmol/L 3.5-5.0 10 Anion Gap 9 mmol/L Normal 2-11 Laboratory test 10/11/2018 [facility] Lactic Acid 0.8 mmol/L Normal 0.5-2.0 11 finding [address] [place] [id number] [phone] 1 Because ethnic data is not always [...] 5 Kidney failure <15 (or dialysis) 2 Troponin-I testing on Plasma Separator Tubes (PST) has a known false positive rate of 0.20-0.40%. All positive troponins reflex immediately to secondary confirmatory testing. Using the [employer] DxI 800 Access Immunoassay systems, the 99th percentile upper reference limit was demonstrated to be < 0.03 ng/mL. 3 Standard intensity warfarin therapeutic range: 2.0-3.0 High intensity warfarin therapeutic range: 2.5-3.5 4 Because ethnic data is not always [...] 5 Kidney failure <15 (or dialysis) 5 Troponin-I testing on Plasma Separator Tubes (PST) has a known false positive rate of 0.20-0.40%. All positive troponins reflex immediately to secondary confirmatory testing. Using the [employer] DxI 800 Access Immunoassay systems, the 99th percentile upper reference limit was demonstrated to be < 0.03 ng/mL. 6 Normal Range 180 to 914 Indeterminate Range 145 to 180 Deficient Range <145 7 Because ethnic data is not always readily [...] 15-29 5 Kidney failure <15 (or dialysis) 8 [facility] Severe Sepsis and Septic Shock Management Bundle [...] 5 Kidney failure <15 (or dialysis) 10 Specimen Hemolyzed. Result may not be valid. Unable to report test result due to hemolysis. 11 [facility] Severe Sepsis and Septic Shock Management Bundle Measure requires all lactic acids initially measuring >2.0 mmol/L be repeated. Procedures Date Code Description Status 12/16/2018 52752 EKG Tracing & Interpretation Completed 06/02/2018 695826020 Bone Mineral Density Test Completed 06/02/2018 [id number] Mammogram Completed 07/14/2016 [id number] Mammogram Completed 07/03/2016 [id number] Colonoscopy Completed 06/26/2016 [id number] Colonoscopy Completed 09/06/2013 [id number] Mammogram Completed Medical Devices Description No Information Available Encounters Type Date Location Provider Dx Diagnosis Office Visit 01/16/2019 [facility] Malissa Mayfield MD K21.9 Gastro- esophageal 3:00p Medicine - Bren reflux disease without esophagitis M81.0 Age-related osteoporosis w/o current pathological fracture M13.0 Polyarthritis, unspecified H81.03 Meniere's disease, bilateral Office Visit 12/16/2018 11:00a [facility] Kaden López I25.119 [facility] heart Of Maggy Iglesias M.D., disease of [facility] [place] redding cor art w unsp ang pctrs I73.00 Raynaud's syndrome without gangrene I10 Essential (primary) hypertension R94.31 Abnormal electrocardiogram [ECG] [EKG] Office Visit 11/25/2018 [facility] Malissa Mayfield, I10 Essential 11:00a Claudine Correia MD (primary) hypertension Office Visit 10/13/2018 [facility] Internal Caty N30.00 Acute cystitis 11:10a Medicine Ita Kearns M.D. without hematuria Office Visit 08/16/2018 [facility] Occupational Adllin S00.93xD Contusion of 2:02p Kody Stern MD unspecified part of head, subsequent encounter S09.90xD Unspecified injury of head, subsequent encounter Z04.2 Encounter for exam and observation following work accident Assessments Date Code Description Provider 02/14/2019 Z48.1 Encounter for planned postprocedural Markos Velasco M.D., [facility], wound closure [facility] 02/14/2019 I10 Essential (primary) hypertension Markos Velasco M.D., [facility], [facility] 02/14/2019 I44.7 Left bundle-branch block, unspecified Markos Velasco M.D., [facility], [facility] 02/09/2019 I10 Essential (primary) hypertension Garrett Francois M.D. 02/09/2019 K59.00 Constipation, unspecified Garrett Francois M.D. 02/09/2019 E03.9 Hypothyroidism, unspecified Garrett Francois M.D. 02/09/2019 K21.9 Gastro-esophageal reflux disease Garrett Francois M.D. without esophagitis 02/08/2019 R07.89 Other chest pain Leeann Guzman MD 02/08/2019 K21.9 Gastro-esophageal reflux disease Leeann Guzman MD without esophagitis 02/08/2019 E03.9 Hypothyroidism, unspecified Leeann Guzman MD 02/08/2019 E78.5 Hyperlipidemia, unspecified Leeann Guzman MD 02/08/2019 M79.7 Fibromyalgia Leeann Guzman MD 02/08/2019 F41.9 Anxiety disorder, unspecified Leeann Guzman MD 02/07/2019 R07.89 Other chest pain Leeann Guzman MD 02/07/2019 K21.9 Gastro-esophageal reflux disease Leeann Guzman MD without esophagitis 02/07/2019 I25.10 Atherosclerotic heart disease of Leeann Guzman MD redding coronary artery without angina pectoris 02/07/2019 K59.00 Constipation, unspecified Leeann Guzman MD 02/07/2019 M79.7 Fibromyalgia Leeann Guzman MD 02/07/2019 R79.89 Other specified abnormal findings of Leeann Guzman MD blood chemistry 02/07/2019 I10 Essential (primary) hypertension Leeann Guzman MD 02/07/2019 F41.9 Anxiety disorder, unspecified Leeann uGzman MD 01/16/2019 K21.9 Gastro-esophageal reflux disease Brandee Mayfield MD without esophagitis 01/16/2019 M81.0 Age-related osteoporosis without Brandee Mayfield MD current pathological fracture 01/16/2019 M13.0 Polyarthritis, unspecified Brandee Mayfield MD 01/16/2019 H81.03 Meniere's disease, bilateral Brandee Mayfield MD 12/16/2018 I25.119 Atherosclerotic heart disease of Kaden Iglesias M.D., redding coronary artery with [facility] 12/16/2018 I73.00 Raynaud's syndrome without gangrene Kaden Iglesias M.D. , [facility], [facility] 12/16/2018 I10 Essential (primary) hypertension Kaden Iglesias M.D., [facility], [facility] 12/16/2018 R94.31 Abnormal electrocardiogram [ECG] Kaden Iglesias M.D., [EKG] [facility], [facility] 11/25/2018 I10 Essential (primary) hypertension Brandee [...] MD at [facility] Internal Medicine - [facility]03/08/2019 1:00 pm - Kaden Iglesias M.D., [facility], [facility] at [place] [place] [facility]05/09/2019 11:00 am - Brandee Mayfield MD at [facility] Internal Medicine - [facility]02/14/2019 - Markos Velasco M.D., [facility], XSCDVJ16.1 Encounter for planned postprocedural wound closureComments:Your catheterization site appears to be healing well.Recommendations:Continue current medications with the higher dose losartan and Follow up with your primary health education aide, Dr. Iglesias.I10 Essential (primary) hypertensionNew Medication:Losartan Potassium 50 mg - one pill a dayComments:Your blood pressure still needs further management. Still needs for further management to sayRecommendations:We will increase the losartan to 50 mg a day. and have your family doctor follow up on the blood pressure.I44.7 Left bundle-branch block, unspecifiedComments:You were noted to have a new left bundle branch block while in the hospital.Recommendations:You will follow up with Harris Deluca regarding this. Functional Status Description No Information Available Mental Status Description No Information Available Referrals Description No Information Available
--- OUTSIDE RECORDS SUMMARY | 2019-03-29 12:14 | XMS REPORT | Continuity of Care Document ---
:1945 External Reference #:[id number] Author Name Kaden Iglesias M.D., [facility], [facility] (transmitted by agent of provider Jacy Adler) Address [address] [place] [address] Care Team Providers Name Role Phone Daren Root MD - Internal Care Team Information Gastroenterology Professor Dallin Mills MD - Occupational Care Team Information Gastroenterology Professor [phone] Medicine Brandee Mayfield M.D. - Family Medicine Care Team Information Gastroenterology Professor Problems Active Problems Provider Date Occult blood in stools Daren Root M.D.,FACP Onset: 04/13/2017 Coronary arteriosclerosis Kaden Iglesias M.D., [facility], FASNC Onset: 2014 Iron deficiency anemia Daren Root M.D.,FACP Onset: 04/01/2017 Essential hypertension Daren Root M.D.,FACP Onset: 04/01/2017 Shane-en-Y gastrojejunostomy Daren Root M.D.,FACP Onset: 04/23/2017 Note: sees Dr. Weber Major depressive disorder Daren Root M.D.,FACP Onset: 04/23/2017 Fibromyalgia Daren Root M.D.,FACP Onset: 04/23/2017 Atherosclerotic heart disease of Kaden Iglesias M.D., [facility], Onset: 2018 [place] coronary artery with FASNC unspecified angina pectoris Encounter for planned postprocedural Markos Velasco M.D., [facility], [facility] Onset: wound closure Left bundle branch block Markos Velasco M.D., [facility], [facility] Onset: 02/14/2019 Chest pain Kaden Iglesias M.D., [facility], Onset: 03/08/2019 FASUT Social History Type Date Description Comments Sex Unknown Tobacco Use Start: Unknown Never Smoked Cigarettes Smoking Status Reviewed: 03/08/19 Never Smoked Cigarettes ETOH Use Denies alcohol [...] 16units Sadi Jamil, 05/07/2018 each nostril one [employer] 50mcg/Act Suspension time a day for 1 week, then 1 spray thereafter Phenazopyridine HCL 2 tabs po tid as 24tabs Sadi Jamil, 01/04/2018 100mg needed [employer] Tablets Blood Pressure Cuff use daily as 1units I10 Sadi Jamil, 09/29/2017 [facility] instructed to [employer] check bp Gabapentin 2 tab at night 180tabs Brandee Mayfield MD 09/15/2017 600mg Tablets Simvastatin 1 by mouth every 90tabs Brandee Mayfield MD 08/25/2013 20mg Tablets day Aspir-81 1 by mouth every Kaden Dawn 08/25/[address] reta Iglesias M.D., [facility], FASNC Carafate one tablet on Unknown 1gm Tablets empty stomach one hour before meals daily. (3xdaily) Diltiazem CD 1 by mouth every 90caps Sadi Jamil, 240mg Caps day [employer] ER 24HR Diazepam 1/2 tab by mouth [...] 90caps Sadi Jamil, 60mg Caps DR day [employer] Part Amitriptyline HCL 1 by mouth every 90tabs M79.7 Sadi Jamil, 50mg night at bedtime [employer] Tablets History Medications Losartan Potassium one pill a day 90tabs I10 Markos Velasco, 02/14/2019 - Jason, [facility], 02/22/2019 50mg Tablets FSCAI Doxycycline take 2 tab by 2caps Sadi Jamil, 09/19/2018 - Monohydrate mouth today [employer] 09/20/2018 100mg Capsules Omeprazole 1 by mouth every 90caps K21.9 Sadi Jamil, 09/17/2018 - 20mg mornings [employer] 01/16/[address] Medications Administered in Office Medication SIG Qnty Indications Ordering Provider Date Inj, Regadenoson, 0.1 MG Kaden Iglesias M.D., 10/08/2014 Injection FACC, FASNC Technetium TC 99M Kaden Iglesias M.D., 10/08/2014 Tetrofosmin, Per Unit Dose Up ANTOINEC, FASNC To 40 Millicuries Injection Depomedrol 80MG Flor Licona M.D. 05/03/2013 Injection Inj, Regadenoson, 0.1 MG Kaden Iglesias M.D., 08/08/2012 Injection FACC, FASNC Aminophylline Kaden Iglesias M.D., 08/08/2012 Injection FACC, FORD Technetium TC 99M Kaden Iglesias M.D., 08/08/2012 Tetrofosmin, Per Unit Dose Up FACC, FORD To 40 Millicuries Injection Immunizations CPT Code Status Date Vaccine Lot # [id number] Given 02/15/2019 Influenza Virus Vaccine, Quadrivalent, Split, Im Use 6-35mo 20096 Given 02/06/2017 Pneumonia Vaccine 36637 Given 02/06/2017 Influenza Virus Vaccine, Quadrivalent, Split, Preservative Free Vital Signs Date Vital Result Comment 03/08/2019 12:44pm Height 65 inches 5'5" Weight 162.00 lb Heart Rate 57 /min BP Systolic Sitting 138 mmHg Rue reg cuff BP Diastolic Sitting 70 mmHg Rue reg cuff BP Systolic Standing 136 mmHg RUe reg cuff BP Diastolic Standing 70 mmHg RUe reg cuff Respiratory Rate 13 /min BMI (Body Mass Index) 27.0 kg/m2 Ejection Fraction 55-60% ECHO 02/07/2019 02/22/2019 9:49am Height 65 inches 5'5" Weight 157.00 lb Heart Rate 58 /min BP Systolic Sitting 167 mmHg Lue reg cuff BP Diastolic Sitting 68 mmHg Lue reg cuff BP Systolic Recheck 162 mmHg Lue reg cuff BP Diastolic Recheck 78 mmHg Lue reg cuff O2 % BldC Oximetry 99 % BMI (Body Mass Index) 26.1 kg/m2 Results Test Date Facility Test Result H/L Range Note Basic Metabolic 02/22/2019 [facility] Sodium 140 mmol/L Normal 135-[address] [place] [address] [phone] Potassium 4.1 mmol/L Normal 3.5-5.0 Chloride 104 mmol/L Normal 101-111 Co2 Carbon Dioxide 31 mmol/L Normal 22-32 Anion Gap 5 mmol/L Normal 2-11 Glucose 86 mg/dL Normal 70-100 Blood Urea Nitrogen 23 mg/dL Normal 6-24 Creatinine 1.44 mg/dL High 0.51-0.95 BUN/Creatinine Ratio 16.0 Normal 8-20 Calcium 9.5 mg/dL Normal 8.6-10.3 Egfr Non- 35.8 >60 Egfr 43.3 >60 1 Basic Metabolic 02/10/2019 [facility] Sodium 139 mmol/L Normal 135-145 Panel [address] [place] [address] [phone] Potassium 4.0 mmol/L Normal 3.5-5.0 Chloride 101 mmol/L Normal 101-111 Co2 Carbon Dioxide 35 mmol/L High 22-32 Anion Gap 3 mmol/L Normal 2-11 Glucose 93 mg/dL Normal 70-100 Blood Urea Nitrogen 20 mg/dL Normal 6-24 Creatinine 1.35 mg/dL High 0.51-0.95 BUN/Creatinine Ratio 14.8 Normal 8-20 Calcium 9.6 mg/dL Normal 8.6-10.3 Egfr Non- 38.5 >60 Egfr 46.6 >60 2 Laboratory test 02/10/2019 [facility] Magnesium 2.1 mg/dL Normal 1.9-2.[address] [place] [address] [phone] Free T4 (Free Thyroxine) 0.95 ng/dL Normal 0.61-1.12 Laboratory test 02/06/2019 [facility] Troponin-I 0.01 <0.04 3 finding 101 (TnI) ng/[place] [address] [phone] CBC Auto Diff 02/06/2019 [facility] White Blood 3.5 Normal 3.5 -10.[address] Count 10^3/[place] [address] [phone] Red Blood Count 4.57 10^6/uL Normal 3.70-4.87 [...] Red Blood Cells % 0.0 Inr/Protime 02/06/2019 [facility] Inr 0.98 Normal 0.82-1.09 4 [address] [place] [address] [phone] Comp Metabolic 02/06/2019 [facility] Sodium 139 mmol/L Normal 135-145 Panel [address] [place] [address] [phone] Potassium 3.7 mmol/L Normal 3.5-5.0 Chloride 101 [...] Egfr 45.9 >60 5 Laboratory test 02/06/2019 [facility] Troponin-I (TnI) 0.00 ng/ mL <0.04 6 finding [address] [place] [address] [phone] Magnesium 2.4 mg/dL Normal 1.9-2.7 TSH (Thyroid Stim Horm) 6.64 mcIU/mL High 0.34-5.60 Vitamin B12 405 pg/mL Normal 180-914 7 Urinalysis Profile 02/02/2019 [facility] Urine Color Colorless [address] [place] [address] [phone] Urine Appearance Clear Urine Specific Garibaldi 1.003 Low 1.010-1.030 Urine pH 7.0 Normal 5-9 Urine Urobilinogen Negative Negative Urine Ketones Negative Negative Urine Protein Negative Negative Urine Leukocytes Negative Negative Urine Blood Negative Negative Urine Nitrite Negative Negative Urine Bilirubin Negative Negative Urine Glucose Negative Negative Laboratory test 02/02/2019 [facility] Lipase 17 U/L Normal 11.0-82.0 finding [address] [place] [address] [phone] C Reactive Protein < 1.00 mg/L Normal <8.01 Lactic Acid 0.7 mmol/L Normal 0.5-2.0 8 Comp Metabolic 02/02/2019 [facility] Sodium 139 mmol/L Normal 135-145 Panel [address] [place] [address] [phone] Potassium 3.4 mmol/L Low 3.5-5.0 Chloride 103 [...] Egfr 46.6 >60 9 CBC Auto 02/02/2019 [facility] White Blood 4.0 10^3/uL Normal 3.5-10.[address] [place] [address] [phone] Red Blood Count 4.24 10^6/uL Normal 3.70-4.87 [...] Blood Cells % 0.1 CBC Auto 10/11/2018 [facility] White Blood 12.5 10^3/uL High 3.5-10.[address] [place] [address] [phone] Red Blood Count 4.45 10^6/uL Normal 3.70-4.87 [...] % 0.1 Basic Metabolic 10/11/2018 [facility] Sodium 139 mmol/L Normal 135-145 Panel [address] [place] [address] [phone] Chloride 103 mmol/L Normal 101-111 Co2 Carbon Dioxide 27 mmol/L Normal 22-32 Glucose 105 mg/dL High 70-100 Blood Urea Nitrogen 20 mg/dL Normal 6-24 Creatinine 1.17 mg/dL High 0.51-0.95 BUN/Creatinine Ratio 17.1 Normal 8-20 Calcium 9.4 mg/dL Normal 8.6-10.3 Egfr Non- 45.5 >60 Egfr 55.0 >60 10 Potassium TNP mmol/L 3.5-5.0 11 Anion Gap 9 mmol/L Normal 2-11 Laboratory test 10/11/2018 [facility] Lactic Acid 0.8 mmol/L Normal 0.5-2.0 12 finding [address] [place] [address] [phone] 1 Because ethnic data is not always [...] immediately to secondary confirmatory testing. Using the Ven[employer] DxI 800 Access Immunoassay systems, the 99th [...] immediately to secondary confirmatory testing. Using the Ven[employer] DxI 800 Access Immunoassay systems, the 99th percentile upper reference limit was demonstrated to be < 0.03 ng/mL. 7 Normal Range 180 to 914 Indeterminate Range 145 to 180 Deficient Range <145 8 [facility] Severe Sepsis and Septic Shock Management [...] report test result due to hemolysis. 12 [facility] Severe Sepsis and Septic Shock Management Bundle Measure requires all lactic acids initially measuring >2.0 mmol/L be repeated. Procedures Date Code Description Status 03/08/2019 71152 EKG Tracing & Interpretation Completed 02/07/2019 30047 ECHO Transthorasic Realtime 2D W Doppler & Color Flow Completed Hosp 02/06/2019 54608 Cath PLMT&NJX L Ventriculog Img S&I Completed 12/16/2018 80232 EKG Tracing & Interpretation Completed 06/02/2018 [id number] Bone Mineral Density Test Completed 06/02/2018 [id number] Mammogram Completed 07/14/2016 [id number] Mammogram Completed 07/03/2016 [id number] Colonoscopy Completed 06/26/2016 [id number] Colonoscopy Completed 09/06/2013 [id number] Mammogram Completed Medical Devices Description No Information Available Encounters Type Date Location Provider Dx Diagnosis Office Visit 02/22/2019 [facility] Brandee Mayfield MD I10 Essential ( primary) 9:40a Medicine - Ccmob hypertension Office Visit 02/14/2019 [facility] Markos Velasco, Z48.812 Encntr for surgical 3:00p [employer] [place] [facility], FACC, aftcr following FSCAI surgery on the circ sys I10 Essential (primary) hypertension I44.7 Left bundle-branch block, unspecified Office Visit 02/09/2019 4:00p [facility] Garrett Sinclair I10 Essential ( primary) Medicine - Bren Francois M.D. hypertension K59.00 Constipation, unspecified E03.9 Hypothyroidism, unspecified K21.9 Gastro-esophageal reflux disease without esophagitis Office Visit 02/08/2019 9:51a [facility] Leeann Guzman MD R07.89 Other chest pain Assoc,pc Hospitalists Office Visit 02/06/2019 9:41a [facility] Michelle R07.9 Chest pain, Assoc,pc MARIO ALBERTO Sanchez unspecified Hospitalists K59.00 Constipation, unspecified Office Visit 01/16/2019 [facility] Brandee Mayfield, K21.9 Gastro-esophageal 3:00p Medicine - reflux disease without Ccmob esophagitis M81.0 Age-related osteoporosis w/o current pathological fracture M13.0 Polyarthritis, unspecified H81.03 Meniere's disease, bilateral Office Visit 12/16/2018 11:00a [facility] Kaden Dawn I25.119 Athscl heart Of Maggy Iglesias M.D., disease of [facility] [place] cor art w unsp ang pctrs I73.00 Raynaud's syndrome without gangrene I10 Essential (primary) hypertension R94.31 Abnormal electrocardiogram [ECG] [EKG] Office Visit 11/25/2018 11:00a [facility] Brandee Mayfield, I10 Essential ( primary) Medicine - MD hypertension Ccmob Office Visit 10/13/2018 11:10a [facility] Caty N30.00 Acute cystitis Medicine - Jason Kearns without hematuria Ccmob Assessments Date Code Description Provider 03/08/2019 R07.9 Chest pain, unspecified Kaden Iglesias M.D., [facility] 02/22/2019 I10 Essential (primary) hypertension Brandee Mayfield MD 02/14/2019 Z48.812 Encounter for surgical aftercare Markos Velasco M.D., [facility], following surgery on the circulatory [facility] system 02/14/2019 I10 Essential (primary) hypertension Markos Velasco M.D., [facility], [facility] 02/14/2019 I44.7 Left bundle-branch block, unspecified Markos Velasco M.D., [facility], [facility] 02/09/2019 I10 Essential (primary) hypertension Garrett Francois M.D. 02/09/2019 K59.00 Constipation, unspecified Garrett Francois M.D. 02/09/2019 E03.9 Hypothyroidism, unspecified Garrett Francois M.D. 02/09/2019 K21.9 Gastro-esophageal reflux disease Garrett Francois M.D. without esophagitis 02/08/2019 R07.89 Other chest pain Leeann Guzman MD 02/07/2019 R07.9 Chest pain, unspecified Freddy Carter M.D. 02/07/2019 R07.89 Other chest pain Leeann Guzman MD 02/07/2019 K21.9 Gastro-esophageal reflux disease Leeann uGzman MD without esophagitis 02/07/2019 K59.00 Constipation, unspecified Leeann Guzman MD 02/06/2019 R07.9 Chest pain, unspecified Michelle Sanchez, [employer] 02/06/2019 R07.89 Other chest pain Veto Chi MD, [facility], [facility] 02/06/2019 K59.00 Constipation, unspecified Michelle Sanchez, [employer] F[employer] 01/16/2019 K21.9 Gastro-esophageal reflux disease Brandee Mayfield MD without esophagitis 01/16/2019 M81.0 Age-related osteoporosis without Brandee Mayfield MD current pathological fracture 01/16/2019 M13.0 Polyarthritis, unspecified Brandee Mayfield MD 01/16/2019 H81.03 Meniere's disease, bilateral Brandee Mayfield MD 12/16/2018 I25.119 Atherosclerotic heart disease of Kaden Iglesias M.D., [place] coronary artery with [facility] 12/16/2018 I73.00 Raynaud's syndrome without gangrene Kaden Iglesias M.D. , [facility] 12/16/2018 I10 Essential (primary) hypertension Kaden Iglesias M.D., [facility] 12/16/2018 R94.31 Abnormal electrocardiogram [ECG] [EKG] Kaden Iglesias M.D., [facility] 11/25/2018 I10 Essential (primary) hypertension Brandee Mayfield MD 10/13/2018 N30.00 Acute cystitis without hematuria Caty Kearns M.D. Plan of Treatment Future Appointment(s):05/09/2019 11:00 am - Brandee Mayfield [facility] at [facility] - Kaden Iglesias M.D., [facility], XLVQXA84.9 Chest pain , unspecifiedComments:As discussed, I feel yur heart is doing well. Please restart exercising and call me if have fainting.Follow up:one year Functional Status Description No Information Available Mental Status Description No Information Available Referrals Refer to Dr Reason for Referral Status Appt Date Hiral Corey MD pls evaluate pt with recent decline in GFR Sent / [address] [place] [address] [phone]
--- OUTSIDE RECORDS SUMMARY | 2019-03-29 12:14 | XMS REPORT | Continuity of Care Document ---
:1945 External Reference #:[id number] Author Name Sabine Escobedo PA-C Address [facility] [place] [address] Care Team Providers Name Role Phone Simon Bolanos MD - Surgery Care Team Information Sales Service Supervisor [phone] Nghia Weber MD - Surgery Care Team Information Sales Service Supervisor [phone] Renate Gomes NP-C Care Team Information Sales Service Supervisor [phone] Daren Root MD - Internal Care Team Information Sales Service Supervisor [phone] Medicine Problems Active Problems Provider Date Constipation Sabine Escobedo PA-C Onset: 02/15/2019 Abdominal pain Sabine Escobedo PA-C Onset: 02/15/2019 Chest pain Sabine Escobedo PA-C Onset: 02/15/2019 Gastroesophageal reflux disease Sabine Escobedo PA-C Onset: 02/15/2019 Gastric ulcer without hemorrhage, Mauricio Thompson MD Onset: 05/04/2017 without perforation AND without obstruction Social History Type Date Description Comments Sex Unknown Tobacco Use Start: Unknown Patient has never smoked Smoking Status Reviewed: 02/15/19 Patient has never smoked Allergies, Adverse Reactions, [...] Sodium Every Day Unknown 02/06/2019 40mg Tablets Fluticasone Propionate Every Day Unknown 02/06/2019 50mcg/Act Suspension Meloxicam Twice Daily Unknown 02/06/2019 7.5mg Tablets Phenazopyridine HCL Three Times Unknown 02/06/2019 200mg Daily Tablets Gabapentin 2 AT Bedtime Unknown 05/11/2018 600mg Tablets Diazepam .2-3 Times Unknown 05/11/2018 5mg Tablets Daily Duloxetine HCL Every Morning Unknown 05/11/[address] Part [facility] B-12 Every Day Unknown 06/07/2017 [...] Available Vital Signs Date Vital Result Comment 02/15/2019 11:27am Height 65 inches 5'5" Weight 158.00 lb BP Systolic 158 mmHg BP Diastolic 66 mmHg Heart Rate 58 /min BMI (Body Mass Index) 26.3 kg/m2 05/04/2017 7:52am Height 65 inches 5'5" Weight 170.00 lb BP Systolic 157 mmHg BP Diastolic 89 mmHg Heart Rate 73 /min BMI (Body Mass Index) 28.3 kg/m2 Results Test Date Facility Test Result [...] (TSH) stimulating hormone (TSH) measurement (units/volume) Xray [facility] Chest Ap Or Port <pending> 019 Xray [facility] [place] Abd/Pel W <pending> 019 Stool [...] Medical Devices Description No Information Available Encounters Description No Information Available Assessments Date Code Description Provider 02/15/2019 K21.9 Gastro-esophageal reflux disease without Sabine Escobedo PA-C esophagitis 02/15/2019 R07.89 Other chest pain Sabine Escobedo PA-C 02/15/2019 R10.10 Upper abdominal pain, unspecified TEE Lopez 02/15/2019 K59.00 Constipation, unspecified Sabine L. Swanstrom, PA-C Plan of Treatment Future Appointment(s):03/17/2019 10:00 am - [facility]2019 - TEE Lopez- CK21.9 Gastro-esophageal reflux disease without lpmcbrpoqxkI42.89 Other chest painR10.10 Upper abdominal pain, unspecifiedNew Medication:Sucralfate 1 gm - 1 tablet by mouth on an empty stomach 3-4 times byinnV29.00 Constipation, unspecified Functional Status Description No Information Available Mental Status Description No Information Available Referrals Description No Information Available
--- OUTSIDE RECORDS SUMMARY | 2019-03-29 12:14 | XMS REPORT | Continuity of Care Document ---
:1945 External Reference #:[id number] Author Name Brandee Mayfield MD (transmitted by agent of provider Gwendolyn Domínguez) Address [address], [place] [address] Care Team Providers Name Role Phone Daren Root MD - Internal Care Team Information Radiographer Angiogram Medicine Dallin Stern MD - Occupational Care Team Information Radiographer Angiogram [phone] Medicine Brandee Mayfield M.D. - Family Medicine Care Team Information Radiographer Angiogram Problems Active Problems Provider Date Occult blood in stools Daren Root M.D.,FACP Onset: 04/13/2017 Coronary arteriosclerosis Kaden Iglesias M.D., [facility], [place] Onset: 2014 Iron deficiency anemia Daren Root M.D.,FACP Onset: 04/01/2017 Essential hypertension Daren Root M.D.,FACP Onset: 04/01/2017 Shane-en-Y gastrojejunostomy Daren Root M.D.,FACP Onset: 04/23/2017 Note: sees Dr. Weber Major depressive disorder Daren Root M.D.,FACP Onset: 04/23/2017 Fibromyalgia Daren Root M.D.,[place] Onset: 04/23/2017 Atherosclerotic heart disease of Kaden Iglesias M.D., [facility], Onset: 2018 [place] coronary artery with FASNC unspecified angina pectoris Encounter for planned postprocedural Markos Velasco M.D., [facility], [facility]SCAI Onset: wound closure Left bundle branch block Markos Velasco M.D., [facility], [facility] Onset: 02/14/2019 Social History Type Date Description Comments Sex Unknown Tobacco Use Start: Unknown Never Smoked Cigarettes Smoking Status Reviewed: 02/22/19 Never Smoked Cigarettes ETOH Use Denies alcohol [...] 16units Linoofiute Jamil, 05/07/2018 each nostril one PRINTED CIRCUIT DESIGNER 50mcg/Act Suspension time a day for 1 week, then 1 spray thereafter Phenazopyridine HCL 2 tabs po tid as 24tabs Zsofia Omero, 01/04/2018 100mg needed PRINTED CIRCUIT DESIGNER Tablets Blood Pressure Cuff use daily as 1units I10 Sadi Jamil, 09/29/2017 Misc instructed to PRINTED CIRCUIT DESIGNER check bp Gabapentin 2 tab at night 180tabs Brandee Mayfield MD 09/15/2017 600mg Tablets Simvastatin 1 by mouth every 90tabs Brandee Mayfield MD 08/25/2013 20mg Tablets day Aspir-81 1 by mouth every Kaden Dawn 08/25/[address] reta Iglesias M.D., [facility], [facility] Linzess 1 by mouth every Unknown 72mcg Capsules day before meal. Carafate one tablet on Unknown 1gm Tablets empty stomach one hour before meals daily. (3xdaily) Diltiazem CD 1 by mouth every 90caps Sadi Jamil, 240mg Caps day PRINTED CIRCUIT DESIGNER ER 24HR Diazepam 1/2 tab by mouth [...] 90caps Sadi Jamil, 60mg Caps DR reta PRINTED CIRCUIT DESIGNER Part Amitriptyline HCL 1 by mouth every 90tabs M79.7 Sadi Jamil, 50mg night at bedtime PRINTED CIRCUIT DESIGNER Tablets History Medications Losartan Potassium one pill a day 90tabs I10 Markos Velasco, 02/14/2019 - Jason, [facility], 02/22/2019 50mg Tablets FSCAI Doxycycline take 2 tab by 2caps Sadi Jamil, 09/19/2018 - Monohydrate mouth today PRINTED CIRCUIT DESIGNER 09/20/2018 100mg Capsules Omeprazole 1 by mouth every 90caps K21.9 Sadi Jamil, 09/17/2018 - 20mg mornings PRINTED CIRCUIT DESIGNER 01/16/[address] Medications Administered in Office Medication SIG Qnty Indications Ordering Provider Date Inj, Regadenoson, 0.1 MG Kaden Iglesias M.D., 10/08/2014 Injection FACC, JAYNC Technetium TC 99M Kaden Iglesias M.D., 10/08/2014 Tetrofosmin, Per Unit Dose Up ANTOINEC, JAYNC To 40 Millicuries Injection Depomedrol 80MG Flor Licona M.D. 05/03/2013 Injection Inj, Regadenoson, 0.1 MG Kaden Iglesias M.D., 08/08/2012 Injection FACC, FASNC Aminophylline Kaden Iglesias M.D., 08/08/2012 Injection ANTOINEC, FORD Technetium TC 99M Kaden Iglesias M.D., 08/08/2012 Tetrofosmin, Per Unit Dose Up ANTOINEC, FORD To 40 Millicuries Injection Immunizations CPT Code Status Date Vaccine Lot # [id number] Given 02/15/2019 Influenza Virus Vaccine, Quadrivalent, Split, Im Use [id number] Given 02/06/2017 Pneumonia Vaccine 33415 Given 02/06/2017 Influenza Virus Vaccine, Quadrivalent, Split, Preservative Free Vital Signs Date Vital Result Comment 02/22/2019 9:49am Height 65 inches 5'5" Weight 157.00 lb Heart Rate 58 /min BP Systolic Sitting 167 mmHg Lue reg cuff BP Diastolic Sitting 68 mmHg Lue reg cuff BP Systolic Recheck 162 mmHg Lue reg cuff BP Diastolic Recheck 78 mmHg Lue reg cuff O2 % BldC Oximetry 99 % BMI (Body Mass Index) 26.1 kg/m2 02/14/2019 3:08pm Height 65 inches 5'5" Weight 158.00 lb with shoes BP Systolic Sitting 158 mmHg Lue reg cuff BP Diastolic Sitting 62 mmHg Lue reg cuff BP Systolic Standing 156 mmHg Lue reg cuff BP Diastolic Standing 60 mmHg Lue reg cuff BMI (Body Mass Index) 26.3 kg/m2 Ejection Fraction 55-60% ECHO 02/07/19 Results Test Date Facility Test Result H/L Range Note Basic Metabolic 02/10/2019 [facility] Sodium 139 mmol/L Normal 135-[address] [place], [place] [id number] [phone] Potassium 4.0 mmol/L Normal 3.5-5.0 Chloride 101 mmol/L Normal 101-111 Co2 Carbon Dioxide 35 mmol/L High 22-32 Anion Gap 3 mmol/L Normal 2-11 Glucose 93 mg/dL Normal 70-100 Blood Urea Nitrogen 20 mg/dL Normal 6-24 Creatinine 1.35 mg/dL High 0.51-0.95 BUN/Creatinine Ratio 14.8 Normal 8-20 Calcium 9.6 mg/dL Normal 8.6-10.3 Egfr Non- 38.5 >60 Egfr 46.6 >60 1 Laboratory test 02/10/2019 [facility] Magnesium 2.1 mg/dL Normal 1.9-2.[address] [place] [address] [phone] Free T4 (Free Thyroxine) 0.95 ng/dL Normal 0.61-1.12 Laboratory test 02/06/2019 [facility] Troponin-I 0.01 <0.04 [address] (TnI) ng/[place] [address] [phone] CBC Auto Diff 02/06/2019 [facility] White Blood 3.5 Normal 3.5 -10.[address] Count 10^3/[place] [address] [phone] Red Blood Count 4.57 10^6/uL Normal 3.70-4.87 [...] Red Blood Cells % 0.0 Inr/Protime 02/06/2019 [facility] Inr 0.98 Normal 0.82-1.[address] [place] [address] [phone] Comp Metabolic 02/06/2019 [facility] Sodium 139 mmol/L Normal 135-[address] [place] [address] [phone] Potassium 3.7 mmol/L Normal 3.5-5.0 Chloride 101 [...] Egfr 45.9 >60 4 Laboratory test 02/06/2019 [facility] Troponin-I (TnI) 0.00 ng/ mL <0.[address] [place] [address] [phone] Magnesium 2.4 mg/dL Normal 1.9-2.7 TSH (Thyroid Stim Horm) 6.64 mcIU/mL High 0.34-5.60 Vitamin B12 405 pg/mL Normal 180-914 6 CBC Auto 02/02/2019 [facility] White Blood 4.0 10^3/uL Normal 3.5-10.[address] [place] [address] [phone] Red Blood Count 4.24 10^6/uL Normal 3.70-4.87 [...] Blood Cells % 0.1 Comp Metabolic 02/02/2019 [facility] Sodium 139 mmol/L Normal 135-[address] [place] [address] [phone] Potassium 3.4 mmol/L Low 3.5-5.0 Chloride 103 [...] Egfr 46.6 >60 7 Laboratory test 02/02/2019 [facility] Lipase 17 U/L Normal 11.0-82.[address] [place] [address] [phone] C Reactive Protein < 1.00 mg/L Normal <8.01 Lactic Acid 0.7 mmol/L Normal 0.5-2.0 8 Urinalysis Profile 02/02/2019 [facility] Urine Color Colorless [address] [place] [address] [phone] Urine Appearance Clear Urine Specific [place] 1.003 Low 1.010-1.030 Urine pH 7.0 Normal 5-9 Urine Urobilinogen Negative Negative Urine Ketones Negative Negative Urine Protein Negative Negative Urine Leukocytes Negative Negative Urine Blood Negative Negative Urine Nitrite Negative Negative Urine Bilirubin Negative Negative Urine Glucose Negative Negative CBC Auto 10/11/2018 [facility] White Blood 12.5 10^3/uL High 3.5-10.[address] [place] [address] [phone] Red Blood Count 4.45 10^6/uL Normal 3.70-4.87 [...] Blood Cells % 0.1 Basic Metabolic 10/11/2018 [facility] Sodium 139 mmol/L Normal 135-[address] [place] [address] [phone] Chloride 103 mmol/L Normal 101-111 Co2 Carbon Dioxide 27 mmol/L Normal 22-32 Glucose 105 mg/dL High 70-100 Blood Urea Nitrogen 20 mg/dL Normal 6-24 Creatinine 1.17 mg/dL High 0.51-0.95 BUN/Creatinine Ratio 17.1 Normal 8-20 Calcium 9.4 mg/dL Normal 8.6-10.3 Egfr Non- 45.5 >60 Egfr 55.0 >60 9 Potassium TNP mmol/L 3.5-5.0 10 Anion Gap 9 mmol/L Normal 2-11 Laboratory test 10/11/2018 [facility] Lactic Acid 0.8 mmol/L Normal 0.5-2.0 [address] [place] [address] [phone] 1 Because ethnic data is not always [...] immediately to secondary confirmatory testing. Using the [employer] DxI 800 Access Immunoassay systems, the 99th [...] immediately to secondary confirmatory testing. Using the [employer] DxI 800 Access Immunoassay systems, the 99th [...] 5 Kidney failure <15 (or dialysis) 8 [place] Severe Sepsis and Septic Shock Management Bundle [...] report test result due to hemolysis. 11 [facility] Severe Sepsis and Septic Shock Management Bundle Measure requires all lactic acids initially measuring >2.0 mmol/L be repeated. Procedures Date Code Description Status 02/07/2019 94047 ECHO Transthorasic Realtime 2D W Doppler & Color Flow Completed Hosp 02/06/2019 76338 Cath PLMT&NJX L Ventriculog Img S&I Completed 12/16/2018 16360 EKG Tracing & Interpretation Completed 06/02/2018 [id number] Bone Mineral Density Test Completed 06/02/2018 [id number] Mammogram Completed 07/14/2016 [id number] Mammogram Completed 07/03/2016 [id number] Colonoscopy Completed 06/26/2016 [id number] Colonoscopy Completed 09/06/2013 [id number] Mammogram Completed Medical Devices Description No Information Available Encounters Type Date Location Provider Dx Diagnosis Office Visit 02/14/2019 [facility] Markos Velasco, Z48.812 Encntr for 3:00p Of [place] Torch Operator AT [facility] Jason, FACC, surgical aftcr FSCAI following surgery on the circ sys I10 Essential (primary) hypertension I44.7 Left bundle-branch block, unspecified Office Visit 02/09/2019 4:00p [facility] Internal Garrett Sinclair I10 Essential ( primary) Medicine - Bren Francois M.D. hypertension K59.00 Constipation, unspecified E03.9 Hypothyroidism, unspecified K21.9 Gastro-esophageal reflux disease without esophagitis Office Visit 02/08/2019 9:51a [facility] Leeann Guzman MD R07.89 Other chest pain Assoc, Hospitalists Office Visit 02/06/2019 9:41a [facility] R07.9 Chest pain, Assoc,pc Laura, VOCATIONAL ADVISER unspecified Hospitalists K59.00 Constipation, unspecified Office Visit 01/16/2019 [facility] Internal Brandee Mayfield, K21.9 Gastro-esophageal 3:00p Medicine - reflux disease without Ccmob esophagitis M81.0 Age-related osteoporosis w/o current pathological fracture M13.0 Polyarthritis, unspecified H81.03 Meniere's disease, bilateral Office Visit 12/16/2018 11:00a [facility] Kaden López I25.119 Athscl heart Of Maggy Iglesias M.D., disease of [facility] [place] cor art w unsp ang pctrs I73.00 Raynaud's syndrome without gangrene I10 Essential (primary) hypertension R94.31 Abnormal electrocardiogram [ECG] [EKG] Office Visit 11/25/2018 11:00a [facility] Internal Brandee Mayfield, I10 Essential ( primary) Medicine - hypertension Ccmob Office Visit 10/13/2018 11:10a [facility] Internal Caty N30.00 Acute cystitis Claudine Kearns M.D. without hematuria Ccmob Assessments Date Code Description Provider 02/22/2019 I10 Essential (primary) hypertension Brandee Mayfield MD 02/14/2019 Z48.812 Encounter for surgical aftercare Markos Velasco M.D., [facility], following surgery on the circulatory [facility] system 02/14/2019 I10 Essential (primary) hypertension Markos Velasco M.D., [facility], [facility] 02/14/2019 I44.7 Left bundle-branch block, unspecified Markos Velasco M.D., [facility], [facility] 02/09/2019 I10 Essential (primary) hypertension Garrett Francois M.D. 02/09/2019 K59.00 Constipation, unspecified Garrett Francois M.D. 02/09/2019 E03.9 Hypothyroidism, unspecified Garrett Francois M.D. 02/09/2019 K21.9 Gastro-esophageal reflux disease Garrett Francois M.D. without esophagitis 02/08/2019 R07.89 Other chest pain Leeann Guzman MD 02/07/2019 R07.9 Chest pain, unspecified Freddy D. Brand, M.D. 02/07/2019 R07.89 Other chest pain Leeann Guzman MD 02/07/2019 K21.9 Gastro-esophageal reflux disease Leeann Guzman MD without esophagitis 02/07/2019 K59.00 Constipation, unspecified Leeann Guzman MD 02/06/2019 R07.9 Chest pain, unspecified Michelle Laura, VOCATIONAL ADVISER 02/06/2019 R07.89 Other chest pain Veto Chi MD, [facility], [facility] 02/06/2019 K59.00 Constipation, unspecified Michelle Laura, VOCATIONAL ADVISER 01/16/2019 K21.9 Gastro-esophageal reflux disease Brandee Mayfield MD without esophagitis 01/16/2019 M81.0 Age-related osteoporosis without Brandee Mayfield MD current pathological fracture 01/16/2019 M13.0 Polyarthritis, unspecified Brandee Mayfield MD 01/16/2019 H81.03 Meniere's disease, bilateral Brandee Mayfield MD 12/16/2018 I25.119 Atherosclerotic heart disease of Kaden Iglesias M.D., [place] coronary artery with [facility] 12/16/2018 I73.00 Raynaud's syndrome without gangrene Kaden Iglesias M.D. , [facility], [facility] 12/16/2018 I10 Essential (primary) hypertension Kaden Iglesias M.D., [facility], [facility] 12/16/2018 R94.31 Abnormal electrocardiogram [ECG] Kaden Iglesias M.D., [EKG] [facility] 11/25/2018 I10 Essential (primary) hypertension Brandee Mayfield MD 10/13/2018 N30.00 Acute cystitis without hematuria Caty Kearns M.D. 09/06/2018 S09.90xD Unspecified injury of head, Dallin Stern MD subsequent encounter 09/06/2018 Z04.2 Encounter for examination and Dallin Stern MD observation following work accident Plan of Treatment Future Appointment(s):03/08/2019 1:00 pm - Kaden Iglesias M.D., [facility], [facility] at [facility]05/09/2019 11:00 am - Brandee Mayfield MD at [facility] Internal Medicine - Ccmob09 - Brandee Mayfield MDI10 Essential (primary) hypertensionNew Medication:Losartan Potassium 100 mg - 1 by mouth every dayComments:I am increasing your dose to 100mg of losartanFollow up:with Dr. Iglesias Functional Status Description No Information Available Mental Status Description No Information Available Referrals Description No Information Available
--- OUTSIDE RECORDS SUMMARY | 2019-03-29 12:15 | XMS REPORT | Continuity of Care Document ---
:1945 External Reference #:[id number] Author Name Michelle Sanchez NP (transmitted by agent of provider Kaden Iglesias) Address [address] [place] [address] Care Team Providers Name Role Phone Daren Root MD - Internal Care Team Information Senior Quality Control Inspector [phone] Medicine Dallin Stern MD - Occupational Care Team Information Senior Quality Control Inspector Medicine Brandee Mayfield M.D. - Family Medicine Care Team Information Senior Quality Control Inspector Problems Active Problems Provider Date Occult blood in stools Daren Root M.D.,FACP Onset: 04/13/2017 Coronary arteriosclerosis Kaden Iglesias M.D., [facility], [facility] Onset: 2014 Iron deficiency anemia Daren Root M.D.,FACP Onset: 04/01/2017 Essential hypertension Daren Root M.D.,FACP Onset: 04/01/2017 Shane-en-Y gastrojejunostomy Daren Root M.D.,FACP Onset: 04/23/2017 Note: sees Dr. Weber Major depressive disorder Daren Root M.D.,FACP Onset: 04/23/2017 Fibromyalgia Daren Root M.D.,FACP Onset: 04/23/2017 Atherosclerotic heart disease of Kaden Iglesias M.D., [facility], Onset: 2018 [place] coronary artery with FASNC unspecified angina pectoris [...] 16units Sadi Jamil, 05/07/2018 each nostril one FISH FRYER 50mcg/Act Suspension time a day for 1 week, then 1 spray thereafter Phenazopyridine HCL 2 tabs po tid as 24tabs Sadi Jamil, 01/04/2018 100mg needed FISH FRYER Tablets Blood Pressure Cuff use daily as 1units I10 Sadi Jamil, 09/29/2017 [facility] instructed to FISH FRYER check bp Gabapentin 2 tab at night 180tabs Brandee Mayfield MD 09/15/2017 600mg Tablets Losartan Potassium 1 by mouth every 90tabs I10 Brandee Mayfield MD 08/23/2017 25mg day Tablets Simvastatin 1 by mouth every 90tabs Brandee Mayfield MD 08/25/2013 20mg Tablets day Aspir-81 1 by mouth every Kaden Dawn 08/25/[address] reta Iglesias M.D., [place] Cefdinir one tid Surekha IV , 300mg Capsules Atul Catalan M.D. Diltiazem CD 1 by mouth every 90caps Sadi Jamil, 240mg Caps day FISH FRYER ER 24HR Diazepam 1/2 tab by mouth [...] 90caps Sadi Jamil, 60mg Caps DR day FISH FRYER Part Amitriptyline HCL 1 by mouth every 90tabs M79.7 Sadi Jamil, 50mg night at bedtime FISH FRYER Tablets History Medications Doxycycline take 2 tab by 2caps Sadi Jamil, 09/19/2018 - Monohydrate mouth today FISH FRYER 09/20/2018 100mg Capsules Omeprazole 1 by mouth every 90caps K21.9 Sadi Jamil, 09/17/2018 - 20mg mornings FISH FRYER 01/16/[address] Medications Administered in Office Medication SIG Qnty Indications Ordering Provider Date Inj, Regadenoson, 0.1 MG Kaden Iglesias M.D., 10/08/2014 Injection FORD ARGUETA Technetium TC 99M Kaden Iglesias M.D., 10/08/2014 Tetrofosmin, Per Unit Dose Up FORD ARGUETA To 40 Millicuries Injection Depomedrol 80MG Flor Licona M.D. 05/03/2013 Injection Inj, Regadenoson, 0.1 MG Kaden Iglesias M.D., 08/08/2012 Injection FACC, JAYNC Aminophylline Kaden Iglesias M.D., 08/08/2012 Injection FACC, JAYNC Technetium TC 99M Kaden Iglesias M.D., 08/08/2012 Tetrofosmin, Per Unit Dose Up ANTOINECJAYNC To 40 Millicuries Injection Immunizations CPT Code Status Date Vaccine Lot # [id number] Given 02/06/2017 Pneumonia Vaccine 04274 Given 02/06/2017 Influenza Virus Vaccine, Quadrivalent, Split, [...] Result H/L Range Note Laboratory test 02/06/2019 [facility] Troponin-I 0.01 ng/mL < 0.04 [address] (TnI) [place] [address] [phone] CBC Auto Diff 02/06/2019 [facility] White Blood 3.5 10^3/uL Normal 3.5-10.[address] [place] [address] [phone] Red Blood Count 4.57 10^6/uL Normal 3.70-4.87 [...] Red Blood Cells % 0.0 Inr/Protime 02/06/2019 [facility] Inr 0.98 Normal 0.82-1.09 2 [address] [place] [address] [phone] Comp Metabolic 02/06/2019 [facility] Sodium 139 mmol/L Normal 135-145 Panel [address] [place] [address] [phone] Potassium 3.7 mmol/L Normal 3.5-5.0 Chloride 101 [...] Egfr 45.9 >60 3 Laboratory test 02/06/2019 [facility] Troponin-I (TnI) 0.00 ng/ mL <0.04 4 finding [address] [place] [address] [phone] Magnesium 2.4 mg/dL Normal 1.9-2.7 TSH (Thyroid Stim Horm) 6.64 mcIU/mL High 0.34-5.60 Vitamin B12 405 pg/mL Normal 180-914 5 CBC Auto 02/02/2019 [facility] White Blood 4.0 10^3/uL Normal 3.5-10.[address] [place] [address] [phone] Red Blood Count 4.24 10^6/uL Normal 3.70-4.87 [...] Blood Cells % 0.1 Comp Metabolic 02/02/2019 [facility] Sodium 139 mmol/L Normal 135-[address] [place] [address] [phone] Potassium 3.4 mmol/L Low 3.5-5.0 Chloride 103 [...] Egfr 46.6 >60 6 Laboratory test 02/02/2019 [facility] Lipase 17 U/L Normal 11.0-82.[address] [place] [address] [phone] C Reactive Protein < 1.00 mg/L Normal <8.01 Lactic Acid 0.7 mmol/L Normal 0.5-2.0 7 Urinalysis Profile 02/02/2019 [facility] Urine Color Colorless [address] [place] [address] [phone] Urine Appearance Clear Urine Specific [place] 1.003 Low 1.010-1.030 Urine pH 7.0 Normal 5-9 Urine Urobilinogen Negative Negative Urine Ketones Negative Negative Urine Protein Negative Negative Urine Leukocytes Negative Negative Urine Blood Negative Negative Urine Nitrite Negative Negative Urine Bilirubin Negative Negative Urine Glucose Negative Negative CBC Auto 10/11/2018 [facility] White Blood 12.5 10^3/uL High 3.5-10.[address] [place] [place] [address] [phone] Red Blood Count 4.45 10^6/uL Normal 3.70-4.87 [...] Blood Cells % 0.1 Basic Metabolic 10/11/2018 [facility] Sodium 139 mmol/L Normal 135-145 Panel [address] [place] [address] [phone] Chloride 103 mmol/L Normal 101-111 Co2 Carbon Dioxide 27 mmol/L Normal 22-32 Glucose 105 mg/dL High 70-100 Blood Urea Nitrogen 20 mg/dL Normal 6-24 Creatinine 1.17 mg/dL High 0.51-0.95 BUN/Creatinine Ratio 17.1 Normal 8-20 Calcium 9.4 mg/dL Normal 8.6-10.3 Egfr Non- 45.5 >60 Egfr 55.0 >60 8 Potassium TNP mmol/L 3.5-5.0 9 Anion Gap 9 mmol/L Normal 2-11 Laboratory test 10/11/2018 [facility] Lactic Acid 0.8 mmol/L Normal 0.5-2.0 10 finding [address] [place] [address] [phone] 1 Troponin-I testing on Plasma Separator Tubes (PST) has a known false positive rate of 0.20-0.40%. All positive troponins reflex immediately to secondary confirmatory testing. Using the [employer] DxI 800 Access Immunoassay systems, the 99th [...] immediately to secondary confirmatory testing. Using the [employer] 800 Access Immunoassay systems, the 99th percentile [...] 5 Kidney failure <15 (or dialysis) 7 [facility] Severe Sepsis and Septic Shock Management Bundle [...] report test result due to hemolysis. 10 [facility] Severe Sepsis and Septic Shock Management Bundle Measure requires all lactic acids initially measuring >2.0 mmol/L be repeated. Procedures Date Code Description Status 12/16/2018 56996 EKG Tracing & Interpretation Completed 06/02/2018 [id number] Bone Mineral Density Test Completed 06/02/2018 [id number] Mammogram Completed 07/14/2016 [id number] Mammogram Completed 07/03/2016 [id number] Colonoscopy Completed 06/26/2016 [id number] Colonoscopy Completed 09/06/2013 [id number] Mammogram Completed Medical Devices Description No Information Available Encounters Type Date Location Provider Dx Diagnosis Office Visit 01/16/2019 [facility] Brandee Mayfield MD K21.9 Gastro- esophageal 3:00p Claudine Correia reflux disease without esophagitis M81.0 Age-related osteoporosis w/o current pathological fracture M13.0 Polyarthritis, unspecified H81.03 Meniere's disease, bilateral Office Visit 12/16/2018 11:00a [facility] Kaden López I25.119 Athscl heart Of Maggy Iglesias M.D., disease of FACC, FASNC [place] cor art w unsp ang pctrs I73.00 Raynaud's syndrome without gangrene I10 Essential (primary) hypertension R94.31 Abnormal electrocardiogram [ECG] [EKG] Office Visit 11/25/2018 [facility] Brandee Mayfield, I10 Essential 11:00a Claudine Correia MD (primary) hypertension Office Visit 10/13/2018 [facility] Caty N30.00 Acute cystitis 11:10a Clauidne Kearns M.D. without hematuria Office Visit 08/16/2018 [facility] Occupational Dallin S00.93xD Contusion of 2:02p Kody [...] Atherosclerotic heart disease of Kaden Iglesias M.D., [place] coronary artery with [facility] 12/16/2018 I73.00 Raynaud's syndrome without gangrene Kaden Iglesias M.D. , [facility] 12/16/2018 I10 Essential (primary) hypertension Kaden Iglesias M.D., [facility] 12/16/2018 R94.31 Abnormal electrocardiogram [ECG] Kaden Iglesias M.D., [EKG] [facility] 11/25/2018 I10 Essential (primary) hypertension [...] following work acc Plan of Treatment Future Appointment(s):05/09/2019 11:00 am - Brandee Mayfield MD at [facility] Internal Medicine - [facility] Functional Status Description No Information Available Mental Status Description No Information Available Referrals Description No Information Available
[2019-03-29 13:10] LABS: Urine Appearance Cloudy
[2019-03-29 13:11] LABS: Urine Color Orange
[2019-03-29 13:13] LABS: Urine Bacteria Absent (Absent); Urine Red Blood Cell 3+(>10/hpf) (Absent); Urine White Blood Cell 3+(>20/hpf) (Absent)
[2019-03-29] MEDS ORDERED: cefTRIAXone(*) 1 GM in NS 0.9% 50 ML* 50 ML IVPB ONE (14:26)
[2019-03-29 14:42] LABS: ABS Eosinophils 0.1 10^3/ul (0-0.6); ABS Lymphocytes 0.9 10^3/ul (1.0-4.8); ABS Monocytes 0.5 10^3/ul (0-0.8); Eosinophil % 0.6 %; Hematocrit 35 % (35-47); Hemoglobin 11.7 g/dL (12.0-16.0); Lymphocyte % 9.6 %; Mean Corpuscular HGB Conc 34 g/dL (31-36); Mean Corpuscular Hemoglobin 29 pg (27-31); Mean Corpuscular Volume 86 fL (80-97); Mean Platelet Volume 7.5 fL (7.4-10.4); Platelet Count 284 10^3/uL (150-450); Red Blood Count 4.02 10^6 /uL (3.70-4.87); Red Cell Distribution Width 16 % (10-15); White Blood Count 9.4 10^3/uL (3.5-10.8)
--- NOTE | 2019-03-29 14:51 | ED ---
GI/ HPI - HPI Summary HPI Summary: Pt is a 73 y/o F presenting to the ED with a chief complaint of UTI sx onset yesterday. She reports kidney disease and chronic UTIs. Current sx include hematuria, frequency, dysuria, feeling feverish, chills, burning with urination , and lower abd pain. No nausea or vomiting. - History of Current Complaint Chief Complaint: EDUrogenitalProblems Time Seen by Provider: 03/29/19 14:26 Stated Complaint: POSS UTI PER PT Hx Obtained From: Patient Onset/Duration: Started Days Ago, Still Present Timing: Constant, Lasting Days Severity: Moderate Current Severity: Severe Pain Intensity: 9 Location of Pain: Umbilical - lower Associated Signs and Symptoms: Positive: Fever - subjective, Chills, Abdominal Pain, UTI Symptoms Aggravating Factor(s): Nothing Alleviating Factor(s): Nothing - Additional Pertinent History Primary Care Physician: RAJENDRA - Allergy/Home Medications Allergies/Adverse Reactions: Allergies Allergy/AdvReac Type Severity Reaction Status Date / Time atenolol Allergy Wheezing Verified 03/29/19 12:06 captopril Allergy Coughing Verified 03/29/19 12:06 ciprofloxacin Allergy tendonitis Verified 03/29/19 12:06 clonidine Allergy Dizziness/i Verified 03/29/19 12:06 nsomnia erythromycin base Allergy GI Verified 03/29/19 12:06 Upset/hives iron Allergy SEVERE GI Verified 03/29/19 12:06 UPSET nifedipine Allergy Unknown Verified 03/29/19 12:06 Reaction Details nisoldipine Allergy Agitation Verified 03/29/19 12:06 Sulfa (Sulfonamide Allergy Hives Verified 03/29/19 12:06 Antibiotics) PMH/Surg Hx/FS Hx/Imm Hx Previously Healthy: Yes Endocrine/Hematology History: Denies: Hx Diabetes Cardiovascular History: Reports: Hx Angioplasty, Hx Coronary Artery Disease, Hx Hypertension Denies: Hx Pacemaker/ICD Respiratory History: Reports: Hx Asthma - SEASONAL, Hx Sleep Apnea - DOES NOT USE HER C-PAP GI History: Reports: Hx Gastroesophageal Reflux Disease, Hx Irritable Bowel, Other GI Disorders - GASTRIC BYPASS STEVAN EN Y History: Reports: Hx Renal Disease, Other Problems/Disorders - UTI Denies: Hx Dialysis Musculoskeletal History: Reports: Hx Arthritis - NECK, SHOULDERS, Hx Fibromyalgia, Other Musculoskeletal History - FX 2 METATARSALS RIGHT FOOT 2010 Denies: Hx Osteoporosis Sensory History: Reports: Hx Cataracts - LENS IMPLANTS 2 YRS AGO, Hx Contacts or Glasses Denies: Hx Hearing Aid Opthamlomology History: Reports: Hx Cataracts - LENS IMPLANTS 2 YRS AGO, Hx Contacts or Glasses Neurological History: Reports: Hx Migraine, Other Neuro Impairments/Disorders - FIBROMYALGIA Psychiatric History: Reports: Hx Anxiety - ON MEDICATION FOR, Hx Depression - ON MEDICATION FOR Denies: Hx Panic Disorder - Cancer History Hx Chemotherapy: No Hx Radiation Therapy: No - Surgical History Surgery Procedure, Year, and Place: HERNIA REPAIR 06/18/18, BILATERAL CATARACTS, GASTRIC BYPASS 08/2010, INTERNAL HERNIA REPAIR 09/2011, DILATED STRICTURE &10/2011 , HEART CATH 05/2007, HYSTERECTOMY 10/1980, RT OVARY REMOVED 05/1984 CHOLECYSTECTOMY 12/1993, AND CYSTOCELE REPAIR 08/1994 Hx Anesthesia Reactions: No - Immunization History Date of Tetanus Vaccine: UTD Date of Influenza Vaccine: 02/2017 Infectious Disease History: No Infectious Disease History: Denies: Traveled Outside the [place] in Last 30 Days - Family History Known Family History: Positive: Cardiac Disease, Hypertension, Diabetes - Social History Alcohol Use: None Hx Substance Use: No Substance Use Type: Reports: None Hx Tobacco Use: No Smoking Status (MU): Never Smoked Tobacco Have You Smoked in the Last Year: No Review of Systems Positive: Fever - subjective, Chills Positive: Abdominal Pain Positive: burning, dysuria, frequency, hematuria All Other Systems Reviewed And Are Negative: Yes Physical Exam - Summary Physical Exam Summary: Constitutional: Well-developed, Well-nourished, Alert. (-) Distressed Skin: Warm, Dry HENT: Normocephalic; Atraumatic Eyes: Conjunctiva normal Neck: Musculoskeletal ROM normal neck. (-) JVD, (-) Stridor, (-) Nuchal rigidity Cardio: Rhythm regular, rate normal, Heart sounds normal; Intact distal pulses; Radial pulses are 2+ and symmetric. (-) Murmur Pulmonary/Chest wall: Effort normal. (-) Respiratory distress, (-) Wheezes, (-) Rales Abd: Soft, suprapubic tenderness, (-) Distension, (-) Guarding, (-) Rebound Musculoskeletal: (-) Edema Lymph: (-) Cervical adenopathy Neuro: Alert, Oriented x3 Psych: Mood and affect Normal Triage Information Reviewed: Yes Vital Signs On Initial Exam: Initial Vitals Temp Pulse Resp BP Pulse Ox 97.8 F 74 16 174/92 98 03/29/19 12:03 03/29/19 12:03 03/29/19 12:03 03/29/19 12:03 03/29/19 12:03 Vital Signs Reviewed: Yes Procedures - Sedation Patient Received Moderate/Deep Sedation with Procedure: No Diagnostics - Vital Signs Vital Signs Temp Pulse Resp BP Pulse Ox 03/29/19 13:40 97.4 F 69 18 162/75 97 03/29/19 12:03 97.8 F 74 16 174/92 98 - Laboratory Lab Results: Lab Results 03/29/19 03/29/19 Range/Units 12:23 14:34 WBC 9.4 (3.5-10.8) 10^3/uL RBC 4.02 (3.70-4.87) 10^6 /uL Hgb 11.7 L (12.0-16.0) g/dL Hct 35 (35-47) % MCV 86 (80-97) fL MCH 29 (27-31) pg MCHC 34 (31-36) g/dL RDW 16 H (10-15) % Plt Count 284 (150-450) 10^3/uL MPV 7.5 (7.4-10.4) fL Neut % (Auto) 84.3 % Lymph % (Auto) 9.6 % Luce % (Auto) 5.2 % Eos % (Auto) 0.6 % Baso % (Auto) 0.3 % Absolute Neuts (auto) 8.0 H (1.5-7.7) 10^3/ul Absolute Lymphs (auto) 0.9 L (1.0-4.8) 10^3/ul Absolute Monos (auto) 0.5 (0-0.8) 10^3/ul Absolute Eos (auto) 0.1 (0-0.6) 10^3/ul Absolute Basos (auto) 0.0 (0-0.2) 10^3/ul Absolute Nucleated RBC 0.0 10^3/ul Nucleated RBC % 0.0 Urine Color [place] Urine Appearance Cloudy Urine WBC (Auto) 3+(>20/hpf) A (Absent) Urine RBC (Auto) 3+(>10/hpf) A (Absent) Urine Bacteria Absent (Absent) Result Diagrams: 03/29/19 14:34 03/29/19 14:34 Lab Statement: Any lab studies that have been ordered have been reviewed, and results considered in the medical decision making process. GIGU Course/Dx - Course Course Of Treatment: 73 y/o F w CKD (baseline Cr 1.4) p/w UTI symptoms. - PE w mild suprapubic abdominal tenderness, UA 3+ LE. Given ceftriaxone here. Will discharge w keflex. previous culture showed Klebsiella and Escherichia coli sensitive to ceftriaxone. - Diagnoses Provider Diagnoses: UTI (urinary tract infection) Discharge ED - Sign-Out/Discharge Documenting (check all that apply): Patient Departure - Discharge Plan Condition: Stable Disposition: HOME Prescriptions: Cephalexin CAP* [Keflex CAP*] 500 mg PO QID 7 Days #28 cap Referrals: Brandee Mayfield MD [Primary Care Provider] - Additional Instructions: You were seen in the emergency department for a UTI. Your creatinine was 1.49. Please take keflex for 7 days If any studies were not completed at the time of discharge you will be called with the relevant results. Please follow up with your primary care doctor in next 2-3 days and return to emergency department for worsening pain, fevers, inability to eat or drink, or concerning symptoms. It was a pleasure taking care of you today. - Billing Disposition and Condition Condition: STABLE Disposition: Home - Attestation Statements Document Initiated by Fco: Yes Documenting Scribe: Emily Aldrich Provider For Whom Fco is Documenting (Include Credential): Leo Morales MD. Scribe Attestation: Emily Villeda, scribed for Leo Morales MD. on 03/29/19 at 1512. Scribe Documentation Reviewed: Yes Provider Attestation: The documentation as recorded by the Emily roger accurately reflects the service I personally performed and the decisions made by Leo roland MD. Status of Scribe Document: Viewed
[2019-03-29 14:58] LABS: BUN/Creatinine Ratio 16.1 (8-20); Calcium 9.5 mg/dL (8.6-10.3); EGFR African American 41.6 (>60); EGFR Non-African American 34.4 (>60); Potassium 3.9 mmol/L (3.5-5.0)
[2019-03-29 15:44] VITALS: BP 191/86
--- NOTE | 2019-03-31 06:07 | ED ---
Imaging and Labs Follow Up Follow Up Type: Labs/Cultures Labs/Culture Result: urine culture preliminary grew gram negative bacilli Patient Communication/Plan: pt placed on Keflex prior to discharge Patient Communication/Plan: will await sensitivities prior to any change in abx Provider Diagnoses: UTI (urinary tract infection)
--- NOTE | 2019-04-01 16:42 | ED ---
Imaging and Labs Follow Up Follow Up Type: Labs/Cultures Labs/Culture Result: Patient's final urine culture reveals 25-50,000 Escherichia coli. She was started on Keflex and organism appears to be pansensitive. No changes in treatment at this time. Patient Communication/Plan: as above Provider Diagnoses: UTI (urinary tract infection)
== END 2019-03-29 15:45 | disposition home or self-care (01) ==
LOC: ED 11:38
DX: N39.0 Urinary tract infection, site not specified (principal); I25.10 Atherosclerotic heart disease of native coronary artery without angina pectoris; I10 Essential (primary) hypertension; J45.909 Unspecified asthma, uncomplicated; K21.9 Gastro-esophageal reflux disease without esophagitis; F41.9 Anxiety disorder, unspecified; F32.9 Major depressive disorder, single episode, unspecified; Z90.710 Acquired absence of both cervix and uterus; Z90.49 Acquired absence of other specified parts of digestive tract; Z79.899 Other long term (current) drug therapy; Z88.1 Allergy status to other antibiotic agents; Z88.2 Allergy status to sulfonamides; Z88.8 Allergy status to other drugs, medicaments and biological substances
CPT/HCPCS: 36415; 80048; 81003; 81015; 85025; 87077; 87086; 87186; 96365; 99282; J0696

== ENCOUNTER 2019-06-21 22:39 | Emergency (ER) | payer MEDICARE ==
--- NOTE | 2019-06-21 22:48 | ED ---
Lower Extremity - HPI Summary HPI Summary: Pt is a 74 y/o F presenting to the ED with a chief complaint of a fall. She states shes been having dizziness for the past few months trying to control her blood pressure with different medications, and tonight she fell trying to get to the bathroom. She reports diarrhea over the last few days, decreased appetite, and some L ankle pain after the fall tonight. In the EMS ride, she developed some CP and SOB. - History of Current Complaint Stated Complaint: DIZZINESS PER EMS Time Seen by Provider: 06/21/19 22:40 Hx Obtained From: Patient, EMS Mechanism Of Injury: Fall From A Standing Position Onset of Pain: Immediate Onset/Duration: Still Present Severity Initially: Moderate Severity Currently: Moderate Timing: Constant, Lasting Hours Location: Is Discrete @ - L ankle Associated Signs And Symptoms: Positive: Dizziness Aggravating Factor(s): Nothing Alleviating Factor(s): Nothing Able to Bear Weight: No - Allergies/Home Medications Allergies/Adverse Reactions: Allergies Allergy/AdvReac Type Severity Reaction Status Date / Time atenolol Allergy Wheezing Verified 06/21/19 23:00 captopril Allergy Coughing Verified 06/21/19 23:00 ciprofloxacin Allergy tendonitis Verified 06/21/19 23:00 clonidine Allergy Dizziness/i Verified 06/21/19 23:00 nsomnia erythromycin base Allergy GI Verified 06/21/19 23:00 Upset/hives iron Allergy SEVERE GI Verified 06/21/19 23:00 UPSET nifedipine Allergy Unknown Verified 06/21/19 23:00 Reaction Details nisoldipine Allergy Agitation Verified 06/21/19 23:00 Sulfa (Sulfonamide Allergy Hives Verified 06/21/19 23:00 Antibiotics) PMH/Surg Hx/FS Hx/Imm Hx Previously Healthy: Yes Endocrine/Hematology History: Denies: Hx Diabetes Cardiovascular History: Reports: Hx Angioplasty, Hx Coronary Artery Disease, Hx Hypertension Denies: Hx Pacemaker/ICD Respiratory History: Reports: Hx Asthma - SEASONAL, Hx Sleep Apnea - DOES NOT USE HER C-PAP GI History: Reports: Hx Gastroesophageal Reflux Disease, Hx Irritable Bowel, Other GI Disorders - GASTRIC BYPASS STEVAN EN Y History: Reports: Hx Renal Disease, Other Problems/Disorders - UTI Denies: Hx Dialysis Musculoskeletal History: Reports: Hx Arthritis - NECK, SHOULDERS, Hx Fibromyalgia, Other Musculoskeletal History - FX 2 METATARSALS RIGHT FOOT 2010 Denies: Hx Osteoporosis Sensory History: Reports: Hx Cataracts - LENS IMPLANTS 2 YRS AGO, Hx Contacts or Glasses Denies: Hx Hearing Aid Opthamlomology History: Reports: Hx Cataracts - LENS IMPLANTS 2 YRS AGO, Hx Contacts or Glasses Neurological History: Reports: Hx Migraine, Other Neuro Impairments/Disorders - FIBROMYALGIA Psychiatric History: Reports: Hx Anxiety - ON MEDICATION FOR, Hx Depression - ON MEDICATION FOR Denies: Hx Panic Disorder - Cancer History Hx Chemotherapy: No Hx Radiation Therapy: No - Surgical History Surgery Procedure, Year, and Place: HERNIA REPAIR 06/18/18, BILATERAL CATARACTS, GASTRIC BYPASS 08/2010, INTERNAL HERNIA REPAIR 09/2011, DILATED STRICTURE &10/2011 , HEART CATH 05/2007, HYSTERECTOMY 10/1980, RT OVARY REMOVED 05/1984 CHOLECYSTECTOMY 12/1993, AND CYSTOCELE REPAIR 08/1994 Hx Anesthesia Reactions: No - Immunization History Date of Tetanus Vaccine: UTD Date of Influenza Vaccine: 02/2017 - Family History Known Family History: Positive: Cardiac Disease, Hypertension, Diabetes - Social History Alcohol Use: None Hx Substance Use: No Substance Use Type: Reports: None Hx Tobacco Use: No Smoking Status (MU): Never Smoked Tobacco Have You Smoked in the Last Year: No Review of Systems Positive: Other - dec. appetite Positive: Chest Pain Positive: Shortness Of Breath Positive: Diarrhea Positive: Myalgia Neurological: Other - dizziness All Other Systems Reviewed And Are Negative: Yes Physical Exam - Summary Physical Exam Summary: Appearance: Well-appearing, Well-nourished, lying in bed comfortable Skin: Warm, dry, no obvious rash Eyes: sclera anicteric, no conjunctival pallor ENT: mucous membranes moist Neck: deferred Respiratory: No signs of respiratory distress Cardiovascular: Appears well perfused, pulses are nml Abdomen: deferred Musculoskeletal: L ankle is edematous & ecchymotic without gross deformity. There is good distal perfusion & sensation. Neurological: Awake and alert, mentation is normal, speech is fluent and appropriate Psychiatric: affect is normal, does not appear anxious or depressed Triage Information Reviewed: Yes Vital Signs Reviewed: Yes Procedures - Sedation Patient Received Moderate/Deep Sedation with Procedure: No - Splinting Left Lower Extremity Location: L ankle Hand-Made Type: OCL Splint: posterior walking - short leg Pre-Proc Neuro Vasc Exam: normal Post-Proc Neuro Vasc Exam: normal Splint Applied by Provider: Nate Steele Lower Extremity Course/Dx - Course Course Of Treatment: Pt is a 74 y/o F presenting to the ED with a chief complaint of a fall. She states shes been having dizziness for the past few months trying to control her blood pressure with different medications, and tonight she fell trying to get to the bathroom. She reports diarrhea over the last few days, decreased appetite, and some L ankle pain after the fall tonight. In the EMS ride, she developed some CP and SOB. Physical exam shows: L ankle is edematous & ecchymotic without gross deformity. There is good distal perfusion & sensation. Ankle XR shows distal fibula fracture with preservation of the ankle mortise. Dx is L ankle fracture. D/c'ed with splint placed and instructions to f/u with PCP. - Diagnoses Provider Diagnoses: Closed left ankle fracture Discharge ED - Sign-Out/Discharge Documenting (check all that apply): Patient Departure - Discharge Plan Condition: Stable Disposition: HOME Prescriptions: oxyCODONE/Acetamin 5/325 MG* [Percocet 5/325 TAB*] 1 tab PO Q4H PRN #15 tab MDD 4 PRN Reason: Pain - Severe Patient Education Materials: Ankle Fracture (ED), Crutch Instructions (ED), Splint Care (ED) Referrals: Bari Cavazos MD [Medical Doctor] - 1 Week Additional Instructions: Keep the splint on for now, and do not bear weight on the left leg until the orthopedic doctor says it's ok to do so. Over the next few days ice and elevation will be helpful for keeping the pain and swelling under control. I have prescribed some pain medicine, but note this can make you drowsy and constipated, so be careful when moving around, ideally if someone can be with you to help that would be best. - Billing Disposition and Condition Condition: STABLE Disposition: Home - Attestation Statements Document Initiated by Fco: Yes Documenting Scribe: Emily Aldrich Provider For Whom Fco is Documenting (Include Credential): Nate Steele MD. Scribe Attestation: Emily Villeda, twanibed for Nate Steele MD. on 06/22/19 at 1907. Scribe Documentation Reviewed: Yes Provider Attestation: The documentation as recorded by the scribe, Emily Aldrich accurately reflects the service I personally performed and the decisions made by me, Nate Steele MD. Status of Scribe Document: Viewed
[2019-06-21] MEDS ORDERED: oxyCODONE/Acetamin 5/325 MG* TAB PO ONE (22:51)
--- OUTSIDE RECORDS SUMMARY | 2019-06-21 23:47 | XMS REPORT | Continuity of Care Document ---
:1945 External Reference #:[id number] Author Name Hiral Corey MD (transmitted by agent of provider Michelle Aparicio) Address [address] [place] [address] Care Team Providers Name Role Phone Daren Root MD - Internal Care Team Information Barrel Endshake Adjuster [phone] Medicine Dallin Stern MD - Occupational Care Team Information Barrel Endshake Adjuster [phone] Medicine Brandee Mayfield M.D. 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 Onset: 05/08/2019 Social History Type Date Description Comments Sex Unknown Tobacco Use Start: Unknown Never Smoked Cigarettes Smoking Status Reviewed: 06/09/19 Never Smoked Cigarettes ETOH Use Denies alcohol [...] Medications SIG Qnty Indications Ordering Date Provider Chlorthalidone 1 tablet PO daily 30tabs N18.4 Mohammad A. 06/09/2019 25mg in Am MD Madhav Tablets Metoprolol Succinate 1 tab by mouth Annammaiván A. 05/30/2019 ER every day at MD Madhav 50mg Tablets ER 24HR bedtime Hydralazine HCL 1/2 tab by mouth 90tabs Mohammad A. 05/11/2019 50mg three times daily MD Madhav Tablets Duloxetine HCL Take 1 Capsule 90caps Linoofiute Jamil, 05/09/2019 60mg Caps Daily SOLE STAIN[facility] DR Wilburn Spironolactone 1 by mouth every 30tabs Mohammad A. 04/07/2019 25mg day MD Madhav Tablets Amlodipine Besylate Take 1 Tablet By 30tabs I10 Ranjit Jarrett NP 04/04/2019 10mg Mouth Every Day Tablets Mupirocin apply a thin 22gm K13.0 Caty Kearns, 04/04/2019 2% Ointment layer on the skin M.D. of affected area twice a day for 5 days Losartan Potassium 1 by mouth every 90tabs I10 Brandee Mayfield MD 02/22/2019 100mg day Tablets Pantoprazole Sodium 1 by mouth every 90tabs K21.9 Brandee Mayfield MD 2018 40mg day Tablets Acetaminophen-Codeine one by mouth 90tabs M13.0 Caty Prescottan, 01/16/2019 #4 every 6 hours as M.D. 300-60mg Tablets needed for pain Prolia one sc every 6 1ml M81.0 Brandee Mayfield MD 01/16/2019 60mg/ml Soln months Prefill Syringe Ranitidine HCL take one tablet 60tabs Caty Kearns, 09/17/2018 150mg by mouth daily as M.D. Tablets needed Fluticasone Propionate use 2 sprays in 16units Sadi Jamil, 05/07/2018 each nostril one SOLE STAINER 50mcg/Act Suspension time a day for 1 week, then 1 spray thereafter Phenazopyridine HCL 2 tabs po tid as 24tabs Sadi Ferrerk, 01/04/2018 100mg needed SOLE STAINER Tablets Blood Pressure Cuff use daily as 1units I10 Sadi Jamil, 09/29/2017 [facility] instructed to SOLE STAINER check bp Gabapentin 2 tab at night 180tabs Brandee Mayfield MD 09/15/2017 600mg Tablets Simvastatin Take 1 Tablet 90tabs Cyndi 08/25/2013 20mg Tablets Daily Jason Márquez Aspir-81 1 by mouth every Kaden López 08/25/[address] reta Iglesias M.D., [facility], [facility] Amitriptyline HCL 1 by mouth every 90tabs M79.7 Zsofia Omero, 50mg night at bedtime SOLE STAINER Tablets Vitamin B-12 1 by mouth every 30tabs Unknown 500mcg day( when Tablets Sub remembers) Multivitamin 1 by mouth every Unknown Tablets day (when she remembers) Citracal 2-4 a day PO(when Unknown Tablets remembers) Carafate one tablet on Unknown 1gm Tablets empty stomach one hour before meals daily. (3xdaily) Cephalexin [place], 500mg Capsules Leo Dikcson MD History Medications Minoxidil take 1 tablet by 90tabs N18.4 [facility] 06[facility]2019 - 10mg mouth daily at MD Madhav 06/09/2019 Tablets bedtime Metoprolol Succinate 1 tab by mouth 90tabs Mohammad A. 05/15/2019 - ER daily at bedtime MD Madhav 05/30/2019 25mg Tablets ER 24HR Hydralazine HCL 1 tab by mouth 180tabs [facility] 05/03/2019 - 25mg three times a MD Madhav 05/11/2019 Tablets day Losartan Potassium one pill a day 90tabs I10 Markos Velasco, 02/14/2019 - Jason, [facility] 02/22/2019 50mg Tablets Medications Administered in Office Medication SIG Qnty Indications Ordering Provider Date Prolia Injection, Denosumab, Nurse Visit A 03/09/2019 1MG Injection Inj, Regadenoson, 0.1 MG Kaden Iglesias M.D., 10/08/2014 Injection [facility], [facility] Technetium TC 99M Kaden Iglesias M.D., 10/08/2014 Tetrofosmin, Per Unit Dose Up [facility] To 40 Millicuries Injection Depomedrol 80MG Flor Licona M.D. 05/03/2013 Injection Inj, Regadenoson, 0.1 MG Kaden Iglesias M.D., 08/08/2012 Injection [facility], [facility] Aminophylline Kaden Iglesias M.D., 08/08/2012 Injection [facility] Technetium TC 99M Kaden Iglesias M.D., 08/08/2012 Tetrofosmin, Per Unit Dose Up [facility] To 40 Millicuries Injection Immunizations CPT Code Status Date Vaccine Lot # [id number] Given 04/17/2019 Pneumococcal Conjugate Vaccine 13 Valent For [id number] Intramuscular Use 48941 Given 02/15/2019 Influenza Virus Vaccine, Quadrivalent, Split, Im Use 6-35mo 12344 Given 02/06/2017 Pneumonia Vaccine [id number] Given 02/06/2017 Influenza Virus Vaccine, Quadrivalent, Split, Preservative Free Vital Signs Date Vital Result Comment 06/09/2019 9:36am Height 65 inches 5'5" Weight 160.00 lb Heart Rate 76 /min BP Systolic Sitting 172 mmHg left arm reg cuff BP Diastolic Sitting 71 mmHg left arm reg cuff O2 % BldC Oximetry 98 % room air BMI (Body Mass Index) 26.6 kg/m2 04/28/2019 9:42am Height 65 inches 5'5" Weight 160.00 lb Heart Rate 73 /min BP Systolic Sitting 162 mmHg L arm BP Diastolic Sitting 78 mmHg L arm O2 % BldC Oximetry 98 % BMI (Body Mass Index) 26.6 kg/m2 Results Test Acquired Date Facility Test Result H/L Range Note Neph Routine 06/07/2019 [facility] Total Protein 16 mg/dL [address] Random Urine [place], [place] [id number] [phone] Creatinine Random Urine 57.66 mg/dL CBC Auto 06/07/2019 [facility] White Blood 4.5 10^3/uL Normal 3.5-10.[address] [place] [address] [phone] Red Blood Count 3.48 10^6/uL Low 3.70-4.87 Hemoglobin 10.4 g/dL Low 12.0-16.0 Hematocrit 31 % Low 35-47 Mean Corpuscular Volume 89 fL Normal 80-97 Mean Corpuscular Hemoglobin 30 pg Normal 27-31 Mean Corpuscular HGB Conc 34 g/dL Normal 31-36 Red Cell Distribution Width 15 % Normal 10-15 Platelet Count 294 10^3/uL Normal 150-450 Mean Platelet Volume 8.0 fL Normal 7.4-10.4 Abs Neutrophils 3.3 10^3/uL Normal 1.5-7.7 Abs Lymphocytes 0.7 10^3/uL Low 1.0-4.8 Abs Monocytes 0.3 10^3/uL Normal 0-0.8 Abs Eosinophils 0.1 10^3/uL Normal 0-0.6 Abs Basophils 0.0 10^3/uL Normal 0-0.2 Abs Nucleated RBC 0.0 10^3/uL Granulocyte % 75.1 % Lymphocyte % 15.3 % Monocyte % 7.3 % Eosinophil % 1.8 % Basophil % 0.5 % Nucleated Red Blood Cells % 0.0 Basic Metabolic 06/07/2019 [facility] Sodium 139 mmol/L Normal 135-[address] [place] [address] [phone] Potassium 4.3 mmol/L Normal 3.5-5.0 Chloride 105 mmol/L Normal 101-111 Co2 Carbon Dioxide 27 mmol/L Normal 22-32 Anion Gap 7 mmol/L Normal 2-11 Glucose 105 mg/dL High 70-100 Blood Urea Nitrogen 31 mg/dL High 6-24 Creatinine 1.88 mg/dL High 0.51-0.95 BUN/Creatinine Ratio 16.5 Normal 8-20 Egfr Non- 26.2 >60 Egfr 31.7 >60 1 Urinalysis Profile 06/07/2019 [facility] Urine Color Yellow [address] [place] [address] [phone] Urine Appearance Clear Urine Specific [place] 1.009 Low 1.010-1.030 Urine pH 5.0 Normal 5-9 Urine Urobilinogen Negative Negative Urine Ketones Negative Negative Urine Protein Negative Negative Urine Leukocytes Negative Negative Urine Blood Negative Negative Urine Nitrite Negative Negative Urine Bilirubin Negative Negative Urine Glucose Negative Negative Laboratory test 06/07/2019 [facility] Albumin 4.5 g/dL Normal 3.2-5.2 finding [address] [place], [place] [id number] [phone] Calcium 9.8 mg/dL Normal 8.6-10.3 Neph Routine 04/26/2019 [facility] Total Protein Random 70 mg/ dL [address] [facility] [place] [address] [phone] Creatinine Random Urine 250.86 mg/dL CBC Auto 04/26/2019 [facility] White Blood 4.2 10^3/uL Normal 3.5-10.8 Diff [address] [facility] [place] [address] [phone] Red Blood Count 3.82 10^6/uL Normal 3.70-4.87 Hemoglobin 11.3 g/dL Low 12.0-16.0 Hematocrit 34 % Low 35-47 Mean Corpuscular Volume 89 fL Normal 80-97 Mean Corpuscular Hemoglobin 30 pg Normal 27-31 Mean Corpuscular HGB Conc 33 g/dL Normal 31-36 Red Cell Distribution Width 16 % High 10-15 Platelet Count 263 10^3/uL Normal 150-450 Mean Platelet Volume 7.8 fL Normal 7.4-10.4 Abs Neutrophils 2.9 10^3/uL Normal 1.5-7.7 Abs Lymphocytes 0.9 10^3/uL Low 1.0-4.8 Abs Monocytes 0.3 10^3/uL Normal 0-0.8 Abs Eosinophils 0.1 10^3/uL Normal 0-0.6 Abs Basophils 0.0 10^3/uL Normal 0-0.2 Abs Nucleated RBC 0.0 10^3/uL Granulocyte % 70.5 % Lymphocyte % 20.6 % Monocyte % 6.3 % Eosinophil % 2.1 % Basophil % 0.5 % Nucleated Red Blood Cells % 0.0 Basic Metabolic 04/26/2019 [facility] Sodium 142 mmol/L Normal 135-[address] [place] [address] [phone] Potassium 3.8 mmol/L Normal 3.5-5.0 Chloride 109 mmol/L Normal 101-111 Co2 Carbon Dioxide 25 mmol/L Normal 22-32 Anion Gap 8 mmol/L Normal 2-11 Glucose 120 mg/dL High 70-100 Blood Urea Nitrogen 21 mg/dL Normal 6-24 Creatinine 1.71 mg/dL High 0.51-0.95 BUN/Creatinine Ratio 12.3 Normal 8-20 Calcium 9.4 mg/dL Normal 8.6-10.3 Egfr Non- 29.3 >60 Egfr 35.5 >60 2 Urinalysis Profile 04/26/2019 [facility] Urine Color Yellow [address] [place] [address] [phone] Urine Appearance Clear Urine Specific [place] 1.026 Normal 1.010-1.030 Urine pH 5.0 Normal 5-9 Urine Urobilinogen Negative Negative Urine Ketones Negative Negative Urine Protein 1+(30 mg/dL) Abnormal Negative Urine Leukocytes Trace Abnormal Negative Urine Blood Negative Negative * * Abnormal Negative 3 Urine Nitrite Negative Negative Urine Bilirubin Negative Negative Urine Glucose Negative Negative Urine White Blood Cell Trace(0-5/hpf) Absent Urine Red Blood Cell Trace(0-2/hpf) Absent Urine Bacteria Absent Absent Urine Squamous Epithelial Cell Present Abnormal Absent Urine Calcium Oxalate Cryst Present Abnormal Absent Urine Culture And 04/26/2019 [facility] Urine Culture SEE RESULT [address] [place] [address] [phone] Protein 04/18/2019 [facility] Total 6.9 g/dL 6.3 - Electrophoresis [address] Protein(Pep) 7.9 [place] [address] [phone] Albumin 3.8 g/dL 3.4-4.7 Alpha-1 Globulin 0.2 g/dL 0.1-0.3 Alpha-2 Globulin 1.0 g/dL 0.6-1.0 Beta Globulin 1.0 g/dL 0.7-1.2 Gamma Globulin 0.9 g/dL 0.6-1.6 Albumin/Globulin Ratio 1.22 Impression See Comment 5 Hepatitis C Antibody 04/18/2019 [facility] HCV Index 0.02 s/c [address] [place] [address] [phone] Hepatitis C Antibody Negative Negative Laboratory 04/18/2019 [facility] Hemoglobin 6.1 % High 4.0- 5.6 6 test finding [facility] Exara A1c ([place] [address] HGB) [phone] HIV 1&2 p24 04/18/2019 [facility] HIV 4th Nonreactive Nonreactive Screen [address] [place], [place] [id number] [phone] Laboratory 04/18/2019 [facility] TSH (Thyroid 3.81 mcIU/mL Normal 0.34-5.60 test finding [facility] Exara Stim Horm) [place] [address] [phone] Basic 04/18/2019 [facility] Sodium 137 mmol/L Normal 135-145 Metabolic [address] [place] [address] [phone] Potassium 4.8 mmol/L Normal 3.5-5.0 Chloride 106 mmol/L Normal 101-111 Co2 Carbon Dioxide 24 mmol/L Normal 22-32 Anion Gap 7 mmol/L Normal 2-11 Glucose 112 mg/dL High 70-100 Blood Urea Nitrogen 28 mg/dL High 6-24 Creatinine 1.93 mg/dL High 0.51-0.95 BUN/Creatinine Ratio 14.5 Normal 8-20 Calcium 9.0 mg/dL Normal 8.6-10.3 Egfr Non- 25.5 >60 Egfr 30.9 >60 7 Laboratory test 04/18/2019 [facility] Creatinine Random 89.12 mg /dL finding [address] [place], [place] [address] [phone] Total Protein Random Urine 25 mg/dL CBC Auto 04/18/2019 [facility] White Blood 4.5 10^3/uL Normal 3.5-10.[address] [place] [address] [phone] Red Blood Count 3.90 10^6/uL Normal 3.70-4.87 Hemoglobin 11.4 g/dL Low 12.0-16.0 Hematocrit 35 % Normal 35-47 Mean Corpuscular Volume 89 fL Normal 80-97 Mean Corpuscular Hemoglobin 29 pg Normal 27-31 Mean Corpuscular HGB Conc 33 g/dL Normal 31-36 Red Cell Distribution Width 16 % High 10-15 Platelet Count 271 10^3/uL Normal 150-450 Mean Platelet Volume 8.1 fL Normal 7.4-10.4 Abs Neutrophils 3.2 10^3/uL Normal 1.5-7.7 Abs Lymphocytes 0.9 10^3/uL Low 1.0-4.8 Abs Monocytes 0.3 10^3/uL Normal 0-0.8 Abs Eosinophils 0.1 10^3/uL Normal 0-0.6 Abs Basophils 0.0 10^3/uL Normal 0-0.2 Abs Nucleated RBC 0.0 10^3/uL Granulocyte % 71.1 % Lymphocyte % 18.9 % Monocyte % 6.9 % Eosinophil % 2.5 % Basophil % 0.6 % Nucleated Red Blood Cells % 0.0 Urinalysis Profile 04/18/2019 [facility] Urine Color Yellow [address] [place] [address] [phone] Urine Appearance Clear Urine Specific [place] 1.013 Normal 1.010-1.030 Urine pH 5.0 Normal 5-9 Urine Urobilinogen Negative Negative Urine Ketones Negative Negative Urine Protein Negative Negative Urine Leukocytes Negative Negative Urine Blood Negative Negative Urine Nitrite Negative Negative Urine Bilirubin Negative Negative Urine Glucose Negative Negative Neph Routine 04/10/2019 [facility] Total Protein Random 15 mg/ dL [address] [place] [address] [phone] Creatinine Random Urine 61.39 mg/dL Urinalysis Profile 04/10/2019 [facility] Urine Color Yellow [address] [place] [address] [phone] Urine Appearance Clear Urine Specific [place] 1.011 Normal 1.010-1.030 Urine pH 5.0 Normal 5-9 Urine Urobilinogen Negative Negative Urine Ketones Negative Negative Urine Protein Negative Negative Urine Leukocytes Negative Negative Urine Blood Negative Negative Urine Nitrite Negative Negative Urine Bilirubin Negative Negative Urine Glucose Negative Negative Hepatitis C Antibody 04/08/2019 [facility] HCV Index 0.01 s/c [address] [place] [address] [phone] Hepatitis C Antibody Negative Negative Basic Metabolic 04/08/2019 [facility] Sodium 138 mmol/L Normal 135-145 Panel [address] [place] [address] [phone] Potassium 4.4 mmol/L Normal 3.5-5.0 Chloride 102 mmol/L Normal 101-111 Co2 Carbon Dioxide 29 mmol/L Normal 22-32 Anion Gap 7 mmol/L Normal 2-11 Glucose 105 mg/dL High 70-100 Blood Urea Nitrogen 30 mg/dL High 6-24 Creatinine 1.74 mg/dL High 0.51-0.95 BUN/Creatinine Ratio 17.2 Normal 8-20 Calcium 9.0 mg/dL Normal 8.6-10.3 Egfr Non- 28.8 >60 Egfr 34.8 >60 8 CBC Auto 04/08/2019 [facility] White Blood 3.6 10^3/uL Normal 3.5-10.8 Diff 101 [facility] [address] [phone] Red Blood Count 3.95 10^6/uL Normal 3.70-4.87 Hemoglobin 11.3 g/dL Low 12.0-16.0 Hematocrit 35 % Normal 35-47 Mean Corpuscular Volume 88 fL Normal 80-97 Mean Corpuscular Hemoglobin 29 pg Normal 27-31 Mean Corpuscular HGB Conc 32 g/dL Normal 31-36 Red Cell Distribution Width 16 % High 10-15 Platelet Count 323 10^3/uL Normal 150-450 Mean Platelet Volume 8.0 fL Normal 7.4-10.4 Abs Neutrophils 2.5 10^3/uL Normal 1.5-7.7 Abs Lymphocytes 0.8 10^3/uL Low 1.0-4.8 Abs Monocytes 0.2 10^3/uL Normal 0-0.8 Abs Eosinophils 0.1 10^3/uL Normal 0-0.6 Abs Basophils 0.0 10^3/uL Normal 0-0.2 Abs Nucleated RBC 0.0 10^3/uL Granulocyte % 70.6 % Lymphocyte % 21.0 % Monocyte % 6.0 % Eosinophil % 1.9 % Basophil % 0.5 % Nucleated Red Blood Cells % 0.2 Neph Routine 04/08/2019 [facility] Urine Random Total 52 mg/dL [address] [place] [address] [phone] Urine Random Creatinine 190.93 mg/dL CBC Auto 03/29/2019 [facility] White Blood 9.4 10^3/uL Normal 3.5-10.[address] [place] [address] [phone] Red Blood Count 4.02 10^6/uL Normal 3.70-4.87 Hemoglobin 11.7 g/dL Low 12.0-16.0 Hematocrit 35 % Normal 35-47 Mean Corpuscular Volume 86 fL Normal 80-97 Mean Corpuscular Hemoglobin 29 pg Normal 27-31 Mean Corpuscular HGB Conc 34 g/dL Normal 31-36 Red Cell Distribution Width 16 % High 10-15 Platelet Count 284 10^3/uL Normal 150-450 Mean Platelet Volume 7.5 fL Normal 7.4-10.4 Abs Neutrophils 8.0 10^3/uL High 1.5-7.7 Abs Lymphocytes 0.9 10^3/uL Low 1.0-4.8 Abs Monocytes 0.5 10^3/uL Normal 0-0.8 Abs Eosinophils 0.1 10^3/uL Normal 0-0.6 Abs Basophils 0.0 10^3/uL Normal 0-0.2 Abs Nucleated RBC 0.0 10^3/uL Granulocyte % 84.3 % Lymphocyte % 9.6 % Monocyte % 5.2 % Eosinophil % 0.6 % Basophil % 0.3 % Nucleated Red Blood Cells % 0.0 Basic Metabolic 03/29/2019 [facility] Sodium 140 mmol/L Normal 135-[address] [place] [address] [phone] Potassium 3.9 mmol/L Normal 3.5-5.0 Chloride 106 mmol/L Normal 101-111 Co2 Carbon Dioxide 27 mmol/L Normal 22-32 Anion Gap 7 mmol/L Normal 2-11 Glucose 81 mg/dL Normal 70-100 Blood Urea Nitrogen 24 mg/dL Normal 6-24 Creatinine 1.49 mg/dL High 0.51-0.95 BUN/Creatinine Ratio 16.1 Normal 8-20 Calcium 9.5 mg/dL Normal 8.6-10.3 Egfr Non- 34.4 >60 Egfr 41.6 >60 9 Urinalysis Profile 03/29/2019 [facility] Urine Color [place] [address] [place] [address] [phone] Urine Appearance Cloudy Urine White Blood Cell 3+(>20/hpf) Abnormal Absent Urine Red Blood Cell 3+(>10/hpf) Abnormal Absent Urine Bacteria Absent Absent Urine Culture And 03/29/2019 [facility] Urine SEE RESULT [address] [place] [address] [phone] Basic Metabolic 02/22/2019 [facility] Sodium 140 mmol/L Normal 135- Panel [address] [place] [address] [phone] Potassium 4.1 mmol/L Normal 3.5-5.0 Chloride 104 mmol/L Normal 101-111 Co2 Carbon Dioxide 31 mmol/L Normal 22-32 Anion Gap 5 mmol/L Normal 2-11 Glucose 86 mg/dL Normal 70-100 Blood Urea Nitrogen 23 mg/dL Normal 6-24 Creatinine 1.44 mg/dL High 0.51-0.95 BUN/Creatinine Ratio 16.0 Normal 8-20 Calcium 9.5 mg/dL Normal 8.6-10.3 Egfr Non- 35.8 >60 Egfr 43.3 >60 12 Basic Metabolic 02/10/2019 [facility] Sodium 139 mmol/L Normal 135-[address] [place] [address] [phone] Potassium 4.0 mmol/L Normal 3.5-5.0 Chloride 101 mmol/L Normal 101-111 Co2 Carbon Dioxide 35 mmol/L High 22-32 Anion Gap 3 mmol/L Normal 2-11 Glucose 93 mg/dL Normal 70-100 Blood Urea Nitrogen 20 mg/dL Normal 6-24 Creatinine 1.35 mg/dL High 0.51-0.95 BUN/Creatinine Ratio 14.8 Normal 8-20 Calcium 9.6 mg/dL Normal 8.6-10.3 Egfr Non- 38.5 >60 Egfr 46.6 >60 13 Laboratory test 02/10/2019 [facility] Magnesium 2.1 mg/dL Normal 1.9-2.7 finding [address] [place] [address] [phone] Free T4 (Free Thyroxine) 0.95 ng/dL Normal 0.61-1.12 Laboratory test 02/06/2019 [facility] Troponin-I (TnI) 0.00 ng/ mL <0.04 14 finding [address] [place] [address] [phone] Magnesium 2.4 mg/dL Normal 1.9-2.7 TSH (Thyroid Stim Horm) 6.64 mcIU/mL High 0.34-5.60 Vitamin B12 405 pg/mL Normal 180-914 15 Comp Metabolic 02/06/2019 [facility] Sodium 139 mmol/L Normal 135-145 Panel [address] [place] [address] [phone] Potassium 3.7 mmol/L Normal 3.5-5.0 Chloride 101 [...] Egfr Non- 37.9 >60 Egfr 45.9 >60 16 Inr/Protime 02/06/2019 [facility] Inr 0.98 Normal 0.82-1.09 17 [address] [place] [address] [phone] CBC Auto Diff 02/06/2019 [facility] White Blood 3.5 Normal 3.5 -10.[address] Count 10^3/uL [place] [address] [phone] Red Blood Count 4.57 10^6/uL Normal 3.70-4.87 [...] % Nucleated Red Blood Cells % 0.0 Laboratory 02/06/2019 [facility] Troponin-I 0.01 <0.04 18 test finding [address] (TnI) ng/[place] [address] [phone] CBC Auto Diff 02/02/2019 [facility] White Blood 4.0 Normal 3.5 -10.[address] Count 10^3/[place] [address] [phone] Red Blood Count 4.24 10^6/uL Normal 3.70-4.87 [...] Blood Cells % 0.1 Comp Metabolic 02/02/2019 [facility] Sodium 139 mmol/L Normal 135-145 Panel [address] [place] [address] [phone] Potassium 3.4 mmol/L Low 3.5-5.0 Chloride 103 [...] Egfr Non- 38.5 >60 Egfr 46.6 >60 19 Laboratory test 02/02/2019 [facility] Lipase 17 U/L Normal 11.0-82.0 finding [address] [place] [address] [phone] C Reactive Protein < 1.00 mg/L Normal <8.01 Lactic Acid 0.7 mmol/L Normal 0.5-2.0 20 Urinalysis Profile 02/02/2019 [facility] Urine Color Colorless [address] [place] [address] [phone] Urine Appearance Clear Urine Specific [place] 1.003 Low 1.010-1.030 Urine pH 7.0 Normal 5-9 Urine Urobilinogen Negative Negative Urine Ketones Negative Negative Urine Protein Negative Negative Urine Leukocytes Negative Negative Urine Blood Negative Negative Urine Nitrite Negative Negative Urine Bilirubin Negative Negative Urine Glucose Negative Negative 1 Because ethnic data is not always [...] 5 Kidney failure <15 (or dialysis) 3 *Ascorbic acid is present which may interfere with detection of blood. 4 SEE RESULT BELOW Name: CARLYLE GIANG : [address]: Hiral Corey MD Acct: [id number] Unit: [id number] AGE: 73 Location: LAB Re04/26/19 SEX: F Status: REG REF SPEC: [id number] ORION: 04/26/[address]: Hiral Corey MD REQ: [id number] RECD: 04/26/19 STATUS: COMP _ [facility] U[facility] Procedure Result Reported Site Urine Culture Final 04/27/19- 1520 ML No Growth (<1,000 CFU/mL) * ML - Main Lab . END OF REPORT DEPARTMENT OF PATHOLOGY, [address] [place] [id number] Shin Schmidt M.D. Director [facility] # [id number] 5 RESULT: No apparent monoclonal protein on serum electrophoresis. Test Performed by: [facility] [place] [address] [place] [address] Second Hand: Steven Chau M.D. Ph.D.; CLIA# [id number] 6 Therapeutic target for the treatment of diabetes mellitus patients is <7% HBA1C, and in selective patients <6.0%. Please refer to [place] [employer] diabetic care guidelines for further information. 7 Because ethnic data is not always [...] 5 Kidney failure <15 (or dialysis) 8 Because ethnic data is not always [...] 5 Kidney failure <15 (or dialysis) 9 Because ethnic data is not always [...] 5 Kidney failure <15 (or dialysis) 10 Unable to evaluate urinalysis dipstick results due to interfering color. Unable to evaluate urinalysis dipstick results due to interfering color. 11 SEE RESULT BELOW Name: CARLYLE GIANG : [address]: Leo Morales MD Acct: [id number] Unit: [id number] AGE: 73 Location: ED Re03/29/19 SEX: F Status: DEP ER SPEC: [id number] ORION: 03/29/[address]: Leo Morales MD REQ: [id number] RECD: 03/29/19 STATUS: CB CASTREJON DR: [facility] Brandee Mayfield MD _ SOURCE: URINE SPDESC: ORDERED: Urine Culture Procedure Result Reported Site Urine Culture Final 03/31/19- 0925 ML Organism 1 ESCHERICHIA COLI [place] Count 25-50,000 (Moderate) CFU/ML 1. ESCHERICHIA COLI M.I.C. RX --------- ------ Ampicillin 8 S Cefazolin <=4 S Cefepime <=1 S Ceftriaxone <=1 S Ciprofloxacin <=0.25 S Gentamicin <=1 S Levofloxacin <=0.12 S Meropenem <=0.25 S Nitrofurantoin 32 S Tetracycline <=1 S Pipercillin/Tazobactam <=4 S Trimethoprim/Sulfamethoxazole <=20 S Amoxicillin/Clavulanic Acid 4 S Aztreonam <=1 S Contact the Microbiology Department for any additional antibiotic reporting. * ML - Main Lab . END OF REPORT DEPARTMENT OF PATHOLOGY, [address] [place] [address] Shin Schmidt M.D. Director [facility] # [id number] 12 Because ethnic data is not always readily [...] 15-29 5 Kidney failure <15 (or dialysis) 13 Because ethnic data is not always readily [...] 15-29 5 Kidney failure <15 (or dialysis) 14 Troponin-I testing on Plasma Separator Tubes (PST) has a known false positive rate of 0.20-0.40%. All positive troponins reflex immediately to secondary confirmatory testing. Using the [employer] DxI 800 Access Immunoassay systems, the 99th percentile upper reference limit was demonstrated to be < 0.03 ng/mL. 15 Normal Range 180 to 914 Indeterminate Range 145 to 180 Deficient Range <145 16 Because ethnic data is not always readily [...] 15-29 5 Kidney failure <15 (or dialysis) 17 Standard intensity warfarin therapeutic range: 2.0-3.0 High intensity warfarin therapeutic range: 2.5-3.5 18 Troponin-I testing on Plasma Separator Tubes (PST) has a known false positive rate of 0.20-0.40%. All positive troponins reflex immediately to secondary confirmatory testing. Using the [employer] Access Immunoassay systems, the 99th percentile upper reference limit was demonstrated to be < 0.03 ng/mL. 19 Because ethnic data is not always readily [...] 15-29 5 Kidney failure <15 (or dialysis) 20 [facility] Severe Sepsis and Septic Shock Management Bundle Measure requires all lactic acids initially measuring >2.0 mmol/L be repeated. Procedures Date Code Description Status 03/09/2019 32898 Admin Of Inj Completed 03/08/2019 36156 EKG Tracing & Interpretation Completed 02/07/2019 03198 ECHO Transthorasic Realtime 2D W Doppler & Color Flow Completed Hosp 02/07/2019 23525 EKG, Interpretation Only Completed 02/06/2019 35530 Cath PLMT&NJX L Ventriculog Img S&I Completed 02/06/2019 01111 EKG, Interpretation Only Completed 12/16/2018 38250 EKG Tracing & Interpretation Completed 06/02/2018 [id number] Bone Mineral Density Test Completed 06/02/2018 [id number] Mammogram Completed 07/14/2016 [id number] Mammogram Completed 07/03/2016 [id number] Colonoscopy Completed 06/26/2016 [id number] Colonoscopy Completed 09/06/2013 [id number] Mammogram Completed Medical Devices Description No Information Available Encounters Type Date Location Provider Dx Diagnosis Office Visit 04/28/2019 [facility] Nephrology Hiral Blackwood N17.9 Acute kidney 10:00a MD Madhav failure, unspecified I12.9 Hypertensive chronic kidney disease w stg 1-4/unsp chr kdny N18.3 Chronic kidney disease, stage 3 (moderate) E78.5 Hyperlipidemia, unspecified Office Visit 04/19/2019 9:30a [facility] Nephrology Hiral Blackwood N17.9 Acute kidney MD Madhav failure, unspecified I12.9 Hypertensive chronic kidney disease w stg 1-4/unsp chr kdny N18.3 Chronic kidney disease, stage 3 (moderate) E78.5 Hyperlipidemia, unspecified I10 Essential (primary) hypertension Office Visit 04/17/2019 10:10a [facility] Internal Catywilton Kearns, I10 Essential (primary) Medicine - Bren Gomez hypertension Z23 Encounter for immunization R20.2 Paresthesia of skin Office Visit 04/04/2019 9:50a [facility] Internal Caty Kearns, I10 Essential (primary) Medicine - Bren Gomez hypertension I12.9 Hypertensive chronic kidney disease w stg 1-4/unsp chr kdny Z79.899 Other rn long term care (current) drug therapy K13.0 Diseases of lips Z11.59 Encounter for screening for other viral diseases Z13.1 Encounter for screening for diabetes mellitus Office Visit 03/24/2019 9:30a [facility] Nephrology Hiral Blackwood I12.9 Hypertensive MD Madhav chronic kidney disease w stg 1-4/unsp chr kdny N18.3 Chronic kidney disease, stage 3 (moderate) E78.5 Hyperlipidemia, unspecified I10 Essential (primary) hypertension Office Visit 03/08/2019 1:00p [facility] Kaden López R07.9 Chest pain, Of Maggy Iglesias M.D., unspecified FACC, FASNC I10 Essential (primary) hypertension R94.31 Abnormal electrocardiogram [ECG] [EKG] I25.10 Athscl heart disease of [place] coronary artery w/o ang pctrs Office Visit 02/22/2019 9:40a [facility] Internal Brandee Mayfield, I10 Essential Medicine - Bren DAVIS (primary) hypertension Office Visit 02/14/2019 3:00p [facility] Markos Velasco, Z48.812 [facility] Of Jason, FACC, surgical aftcr [employer] AT [facility] following surgery on the circ sys I10 Essential (primary) hypertension I44.7 Left bundle-branch block, unspecified Office Visit 02/09/2019 4:00p [facility] Internal Garrett Sinclair I10 Essential ( primary) Medicine - Bren Francois M.D. hypertension K59.00 Constipation, unspecified E03.9 Hypothyroidism, unspecified K21.9 Gastro-esophageal reflux disease without esophagitis Office Visit 02/08/2019 9:51a [facility] Leeann Guzman MD R07.89 Other chest pain Assoc,pc Hospitalists Office Visit 02/06/2019 9:41a [facility] Michelle R07.9 Chest pain, Assoc,pc MARIO ALBERTO Sanchez unspecified Hospitalists K59.00 Constipation, unspecified Office Visit 01/16/2019 [facility] Internal Brandee Mayfield, K21.9 Gastro-esophageal 3:00p Medicine - MD reflux disease without Ccmob esophagitis M81.0 Age-related osteoporosis w/o current pathological fracture M13.0 Polyarthritis, unspecified H81.03 Meniere's disease, bilateral Office Visit 12/16/2018 11:00a [facility] Kaden López I25.119 Athscl heart Of Maggy Iglesias M.D., disease of FACC, FASNC [place] cor art w unsp ang pctrs I73.00 Raynaud's syndrome without gangrene I10 Essential (primary) hypertension R94.31 Abnormal electrocardiogram [ECG] [EKG] Assessments Date Code Description Provider 06/09/2019 I12.9 Hypertensive chronic kidney disease Hiral Corey MD with stage 1 through stage 4 chronic kidney disease, or unspecified chronic kidney disease 06/09/2019 N18.4 Chronic kidney disease, stage 4 Hiral Corey MD (severe) 06/09/2019 E78.5 Hyperlipidemia, unspecified Hiral Corey MD 04/28/2019 N17.9 Acute kidney failure, unspecified Hiral Corey MD 04/28/2019 I12.9 Hypertensive chronic kidney disease Hiral Corey MD with stage 1 through stage 4 chronic kidney disease, or unspecified chronic kidney disease 04/28/2019 N18.3 Chronic kidney disease, stage 3 Hiral Corey MD (moderate) 04/28/2019 E78.5 Hyperlipidemia, unspecified Hiral Corey MD 04/19/2019 N17.9 Acute kidney failure, unspecified Hiral Corey MD 04/19/2019 I12.9 Hypertensive chronic kidney disease Hiral Corey MD with stage 1 through stage 4 chronic kidney disease, or unspecified chronic kidney disease 04/19/2019 N18.3 Chronic kidney disease, stage 3 Hiral Corey MD (moderate) 04/19/2019 E78.5 Hyperlipidemia, unspecified Hiral Corey MD 04/19/2019 I10 Essential (primary) hypertension Hiral Corey MD 04/17/2019 I10 Essential (primary) hypertension Caty Kearns M.D. 04/17/2019 Z23 Encounter for immunization Caty Kearns M.D. 04/17/2019 R20.2 Paresthesia of skin Caty Kearns M.D. 04/04/2019 I10 Essential (primary) hypertension Caty Kearns M.D. 04/04/2019 I12.9 Hypertensive chronic kidney disease Caty Kearns M.D. with stage 1 through stage 4 chronic kidney disease, or unspecified chronic kidney disease 04/04/2019 Z79.899 Other rn long term care (current) drug therapy Caty Kearns M.D. 04/04/2019 K13.0 Diseases of lips Caty Kearns M.D. 04/04/2019 Z11.59 Encounter for screening for other Caty Kearns M.D. viral diseases 04/04/2019 Z13.1 Encounter for screening for diabetes Caty Kearns M.D. mellitus 03/24/2019 I12.9 Hypertensive chronic kidney disease Hiral Corey MD with stage 1 through stage 4 chronic kidney disease, or unspecified chronic kidney disease 03/24/2019 N18.3 Chronic kidney disease, stage 3 Hiral Corey MD (moderate) 03/24/2019 E78.5 Hyperlipidemia, unspecified Hiral Corey MD 03/24/2019 I10 Essential (primary) hypertension Hiral Corey MD 03/09/2019 M81.0 Age-related osteoporosis without Nurse Visit A current pathological fracture 03/08/2019 R07.9 Chest pain, unspecified Kaden Iglesias M.D., [facility], [facility] 03/08/2019 I10 Essential (primary) hypertension Kaden Iglesias M.D., [facility], [facility] 03/08/2019 R94.31 Abnormal electrocardiogram [ECG] [EKG] Kaden Iglesias M.D., [facility], [facility] 03/08/2019 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 Iglesias M.D., [place] coronary artery without angina [facility] pectoris 02/22/2019 I10 Essential (primary) hypertension Brandee Mayfield MD 02/14/2019 Z48.812 Encounter for surgical aftercare Markos Velasco M.D., [facility], following surgery on the circulatory [facility] system 02/14/2019 I10 Essential (primary) hypertension Markos Velasco M.D., [facility], [facility] 02/14/2019 I44.7 Left bundle-branch block, unspecified Markos Velasco M.D., [facility], [facility] 02/09/2019 I10 Essential (primary) hypertension [...] K59.00 Constipation, unspecified Leeann Guzman MD 02/06/2019 R94.31 Abnormal electrocardiogram [ECG] [EKG] Vanessa Maldonado M.D. 02/06/2019 R07.9 Chest pain, unspecified Michelle Laura, [employer] 02/06/2019 R07.89 Other chest pain Veto Chi MD, [facility], [facility] 02/06/2019 K59.00 Constipation, unspecified Michelle [place], [employer] 01/16/2019 K21.9 Gastro-esophageal reflux disease Brandee Mayfield MD without esophagitis 01/16/2019 M81.0 Age-related osteoporosis without Brandee Mayfield MD current pathological fracture 01/16/2019 M13.0 Polyarthritis, unspecified Brandee Mayfield MD 01/16/2019 H81.03 Meniere's disease, bilateral Brandee Mayfield MD 12/16/2018 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 , [facility], [facility] 12/16/2018 I10 Essential (primary) hypertension Kaden Iglesias M.D., [facility], [facility] 12/16/2018 R94.31 Abnormal electrocardiogram [ECG] [EKG] Kaden Iglesias M.D., [facility], [facility] Plan of Treatment Future Appointment(s):06/23/2019 9:40 am - Hiral Corey MD at [facility] Jjubiqqtia38/05/2020 10:00 am - [facility]:15 am - Claudia Slade MD at [facility] Rdaancebhvo07/03/ 2020 10:30 am - Michael Matos M.D. at [facility]07/18 9:10 am - Caty Kearns M.D. at [facility] Internal Medicine - Ccmob2019 10:00 am - Hiral Corey MD at [facility] Bbfzwiugui77/10/2020 - Hiral Corey MDI12.9 Hypertensive chronic kidney disease with stage 1 through stage 4 chronic kidney disease, or unspecified chronic kidney uwcetsfD97.4 Chronic kidney disease, stage 4 (severe)New Medication:Chlorthalidone 25 mg - 1 tablet PO daily in AmMinoxidil 10 mg - take 1 tablet by mouth daily at bedtimeComments: Take Amlodipine in AMTake Losartan PMStart Chlorthalidone 25 mg daily in AM.f/u in 2 weeks with labsFollow up:f/u in 1 month with LabsE78.5 Hyperlipidemia, unspecified Functional Status Description No Information Available Mental Status Description No Information Available Referrals Refer to Dr Reason for Referral Status Appt Date Zulay Ambrocio MD Sent 07/05/2019 [address], [place] [address] [phone] Claudia Slade MD Sent 06/27/2019 [address] [facility], [place] [address] [phone] Rob Lovett MD Sent 08/01/2019 [address] [place] [place] [address] [place] [address] [phone] Hiral Corey MD pls evaluate pt with recent decline in GFR Sent 03/[address] [place] [address] [phone]
--- OUTSIDE RECORDS SUMMARY | 2019-06-21 23:47 | XMS REPORT | Continuity of Care Document ---
:1945 External Reference #:[id number] Author Name FANY Álvarez-C (transmitted by agent of provider Diane Saucedo) Address [address] [place] [id number] Problems Active Problems Provider Date Allergic rhinitis due to animals Adolfo Torres M.D. Onset: 09/07/2018 Allergic rhinitis Adolfo Torres M.D. Onset: 09/07/2018 Allergic rhinitis due to pollen Adolfo Torres M.D. Onset: 09/07/2018 Social History Type Date Description Comments Sex Unknown ETOH Use Rarely consumes alcohol Tobacco Use Start: Unknown Patient has never smoked Recreational Drug Use Never Used Drugs Allergies, Adverse Reactions, Alerts Active Allergies Reaction Severity Comments Date Tenormin Wheezing 04/16/2014 Capoten Cough and Rash 04/16/2014 Cipro tendonitis 04/16/2014 Erythromycin gi upset 04/16/2014 Edna Urticaria 04/16/2014 Nifedipine Hypertrophy 04/16/2014 Catapres-TTS dizzines and insomnia 12/26/2014 Medications Active Medications SIG Qnty Indications Ordering Date Provider Olopatadine HCL 1 drop in each 7.5ml J30.1 Iraida 06/14/2019 0.2% Solution eye once daily as Uldrich, PENSION MANAGER-C needed Flonase Allergy Relief 1 spray each 1units J30.1 Iraida 08/09/2017 nostril everyday Uldrich, PENSION MANAGER-C 50mcg/Act Suspension Proair HFA two inhalations 1units J30.1 Iraida 07/16/2017 108(90Base) every 4 hours as Uldrich, PENSION MANAGER-C mcg/Act Aerosol needed for cough, wheezing or chest tightness Nystatin 4 cubic 480ml B37.0 Iraida 12/31/2016 498472Wyrh/ML centimeters by MARQUISE Flores Suspension mouth by mouth 4x a day swish and swallow Clotrimazole 1 lozenge 5x 70units B37.0 Iraida 12/31/2016 10mg Lozenges daily MARQUISE Flores Hydralazine HCL Take 1 Tablet By Unknown 50mg Tablets Mouth Three Times A Day Spironolactone Take 1 Tablet By Unknown 25mg Tablets Mouth Daily Mupirocin apply to skin 2 Unknown 2% Ointment times a day Losartan Potassium once daily Unknown 100mg Tablets Ranitidine HCL as needed Unknown 150mg Tablets Methylprednisolone Take as Directed Unknown 4mg TBPK On Package Duloxetine HCL one tablet at Unknown 60mg Caps DR night Part Diltiazem CD one tablet daily Unknown 240mg Caps ER 24HR Stool Softener as needed Unknown 100mg Capsules Calcium Petities 2 daily Unknown Potassium Chloride ER 2 capsults in the Unknown 10Meq Am and 1 capsule Capsules ER in PM. Diazepam 1/2 pill in Am Unknown 0.5mg Tablets and 1/2 pill in PM Triamterene/Hydrochlorot one tablet at Unknown hiazide night 37.5-25mg Capsules Gabapentin one tablet at Unknown 600mg Tablets night Vitamin B-12 one tablet daily Unknown 250mcg Tablets Biotin Maximum Strength 2 tablets daily Unknown 5000mcg Capsules Womens Multivitamin Plus one tablet daily Unknown Tablets Aspirin Ec Lo-Dose one tablet daily Unknown 81mg Tablets DR Omeprazole one tablet in the Unknown 20mg Capsules DR Am and one tablet in the PM Simvastatin one tablet at Unknown 20mg Tablets night Amitriptyline HCL one tablet at Unknown 50mg night Tablets Medications Administered in Office Medication SIG Qnty Indications Ordering Provider Date Injection Allergy Injection 06/05/2019 Injection Injection Allergy Injection 05/03/2019 Injection Injection Allergy Injection 04/10/2019 Injection Injection Allergy Injection 03/24/2019 Injection Injection Allergy Injection 03/08/2019 Injection Injection Allergy Injection 02/22/2019 Injection Injection Allergy Injection 02/10/2019 Injection Injection Allergy Injection 01/27/2019 Injection Injection Allergy Injection 01/09/2019 Injection Injection Allergy Injection 12/28/2018 Injection Injection Allergy Injection 12/12/2018 Injection Injection Allergy Injection 11/30/2018 Injection Injection Allergy Injection 11/14/2018 Injection Injection Allergy Injection 10/31/2018 Injection Injection Allergy Injection 10/17/2018 Injection Injection Allergy Injection 10/03/2018 Injection Injection Allergy Injection 09/19/2018 Injection Injection Allergy Injection 09/05/2018 Injection Injection Allergy Injection 08/12/2018 Injection Injection Allergy Injection 07/15/2018 Injection Injection Allergy Injection 06/13/2018 Injection Injection Allergy Injection 05/16/2018 Injection Injection Allergy Injection 04/18/2018 Injection Injection Allergy Injection 04/06/2018 Injection Injection Allergy Injection 03/21/2018 Injection Injection Allergy Injection 02/21/2018 Injection Injection Allergy Injection 02/07/2018 Injection Injection Allergy Injection 01/24/2018 Injection Injection Allergy Injection 01/10/2018 Injection Injection Allergy Injection 12/27/2017 Injection Injection Adolfo Torres M.D. 12/15/2017 Injection Injection Allergy Injection 12/15/2017 Injection Injection Allergy Injection 11/29/2017 Injection Injection Allergy Injection 11/17/2017 Injection Injection Allergy Injection 11/01/2017 Injection Injection Allergy Injection 10/18/2017 Injection Injection Allergy Injection 10/06/2017 Injection Injection Allergy Injection 09/22/2017 Injection Injection Allergy Injection 09/06/2017 Injection Injection Allergy Injection 08/23/2017 Injection Injection Allergy Injection 08/09/2017 Injection Injection Allergy Injection 07/12/2017 Injection Injection Allergy Injection 06/16/2017 Injection Injection Allergy Injection 05/26/2017 Injection Injection Adolfo Torres M.D. 05/14/2017 Injection Injection Allergy Injection 05/14/2017 Injection Injection Allergy Injection 04/14/2017 Injection Injection Allergy Injection 03/17/2017 Injection Injection Allergy Injection 03/03/2017 Injection Injection Allergy Injection 02/17/2017 Injection Injection Allergy Injection 02/03/2017 Injection Injection Allergy Injection 01/14/2017 Injection Injection Allergy Injection 12/11/2016 Injection Injection Adolfo Torres M.D. 11/27/2016 Injection Injection Allergy Injection 11/27/2016 Injection Injection Allergy Injection 11/13/2016 Injection Injection Allergy Injection 10/30/2016 Injection Injection Allergy Injection 10/12/2016 Injection Injection Allergy Injection 09/28/2016 Injection Injection Allergy Injection 09/14/2016 Injection Injection Allergy Injection 08/31/2016 Injection Injection Allergy Injection 08/03/2016 Injection Injection Allergy Injection 07/06/2016 Injection Injection Allergy Injection 2016 Injection Injection Allergy Injection 05/06/2016 Injection Injection Allergy Injection 04/10/2016 Injection Injection Allergy Injection 03/27/2016 Injection Injection Allergy Injection 03/04/2016 Injection Injection Allergy Injection 02/07/2016 Injection Injection Allergy Injection 01/24/2016 Injection Injection Allergy Injection 12/30/2015 Injection Injection Allergy Injection 12/11/2015 Injection Injection Allergy Injection 11/20/2015 Injection Injection Allergy Injection 11/01/2015 Injection Injection Allergy Injection 10/16/2015 Injection Injection Allergy Injection 10/02/2015 Injection Injection Allergy Injection 09/18/2015 Injection Injection Allergy Injection 09/04/2015 Injection Injection Allergy Injection 08/21/2015 Injection Injection Allergy Injection 08/05/2015 Injection Injection Allergy Injection 07/03/2015 Injection Injection Allergy Injection 06/05/2015 Injection Injection Allergy Injection 05/08/2015 Injection Injection Allergy Injection 04/08/2015 Injection Injection Allergy Injection 03/25/2015 Injection Injection Allergy Injection 03/08/2015 Injection Injection Allergy Injection 02/18/2015 Injection Injection Allergy Injection 01/30/2015 Injection Injection Allergy Injection 01/14/2015 Injection Injection Allergy Injection 12/26/2014 Injection Injection Allergy Injection 11/26/2014 Injection Injection Allergy Injection 11/12/2014 Injection Injection Allergy Injection 10/15/2014 Injection Injection Allergy Injection 09/21/2014 Injection Injection Allergy Injection 09/05/2014 Injection Injection Allergy Injection 08/20/2014 Injection Injection Allergy Injection 08/03/2014 Injection Injection Allergy Injection 07/16/2014 Injection Injection Allergy Injection 06/27/2014 Injection Injection Allergy Injection 06/11/2014 Injection Injection Allergy Injection 05/28/2014 Injection Injection Allergy Injection 05/14/2014 Injection Injection Allergy Injection 04/23/2014 Injection Injection Allergy Injection 03/26/2014 Injection Injection Allergy Injection 02/28/2014 Injection Injection Allergy Injection 02/16/2014 Injection Injection Allergy Injection 01/31/2014 Injection Injection Allergy Injection 01/15/2014 Injection Injection Allergy Injection 01/01/2014 Injection Injection Allergy Injection 12/18/2013 Injection Injection Allergy Injection 12/04/2013 Injection Injection Allergy Injection 11/20/2013 Injection Injection Allergy Injection 10/30/2013 Injection Injection Allergy Injection 10/16/2013 Injection Injection Allergy Injection 10/02/2013 Injection Injection Allergy Injection 09/13/2013 Injection Injection Allergy Injection 09/01/2013 Injection Injection Allergy Injection 08/18/2013 Injection Injection Allergy Injection 07/28/2013 Injection Injection Allergy Injection 07/14/2013 Injection Injection Allergy Injection 06/30/2013 Injection Injection Allergy Injection 06/16/2013 Injection Injection Allergy Injection 06/02/2013 Injection Injection Allergy Injection 05/17/2013 Injection Injection Allergy Injection 04/26/2013 Injection Injection Allergy Injection 03/20/2013 Injection Injection Allergy Injection 02/24/2013 Injection Injection Allergy Injection 02/10/2013 Injection Injection Allergy Injection 01/23/2013 Injection Injection Allergy Injection 01/06/2013 Injection Injection Allergy Injection 12/23/2012 Injection Injection Allergy Injection 12/09/2012 Injection Injection Allergy Injection 11/23/2012 Injection Injection Allergy Injection 11/07/2012 Injection Injection Allergy Injection 10/21/2012 Injection Injection Allergy Injection 10/03/2012 Injection Injection Allergy Injection 09/16/2012 Injection Injection Allergy Injection 08/31/2012 Injection Injection Olvin Jason Price 08/12/2012 Injection Injection Olvin Jason Price 07/20/2012 Injection Injection Olvin AlbertJason jane 07/06/2012 Injection Injection Olvin AlbertJason jane 06/20/2012 Injection Injection Olvin AlbertJason 2012 Injection Injection Olvin AlbertJason jane 05/16/2012 Injection Injection Olvin AlbertJason 05/02/2012 Injection Injection Olvin AlbetrJason 04/13/2012 Injection Injection Olvin AlbertJason 03/11/2012 Injection Injection Olvin AlbertJason 02/24/2012 Injection Injection Olvin AlbertJason 02/08/2012 Injection Injection Olvin Albert, Jason 01/25/2012 Injection Injection Olvin AlbertJason 01/08/2012 Injection Injection Olvin AlbertJason jane 12/30/2011 Injection Injection Olvin AlbertJason jane 12/25/2011 Injection Injection Olvin Albert, M.D. 12/07/2011 Injection Injection Olvin Albert, M.D. 11/13/2011 Injection Injection Olvin Albert, M.D. 11/02/2011 Injection Injection Olvin Albert, M.D. 10/12/2011 Injection Injection Olvin Albert, M.D. 09/25/2011 Injection Injection Olvin Albert, M.D. 09/02/2011 Injection Injection Olvin Albert, M.D. 08/17/2011 Injection Injection Olvin Albert, M.D. 08/05/2011 Injection Injection Olvin Albert, M.D. 07/20/2011 Injection Injection Olvin Albert, M.D. 07/06/2011 Injection Injection Olvin Albert, M.D. 06/22/2011 Injection Injection Olvin Albert, M.D. 06/08/2011 Injection Injection Olvin Albert, M.D. 05/27/2011 Injection Injection Olvin Albert, M.D. 05/04/2011 Injection Injection Olvin Albert, M.D. 04/17/2011 Injection Injection Olvin Albert, M.D. 03/30/2011 Injection Injection Olvin Albert, M.D. 03/09/2011 Injection Injection Olvin Albert, M.D. 02/25/2011 Injection Injection Olvin Albert, M.D. 02/11/2011 Injection Injection Olvin Albert, M.D. 01/26/2011 Injection Injection Olvin Albert, M.D. 01/19/2011 Injection Injection Olvin Albert, M.D. 10/13/2010 Injection Injection Olvin Albert, M.D. 09/24/2010 Injection Injection Olvin Albert, M.D. 09/01/2010 Injection Injection Olvin Albert, M.D. 08/18/2010 Injection Injection Olvin Albert, M.D. 07/28/2010 Injection Injection Olvin Albert, M.D. 07/14/2010 Injection Injection Olvin Albert, M.D. 06/30/2010 Injection Injection Olvin Albert, M.D. 06/04/2010 Injection Injection Olvin Albert, M.DIsaiah 05/12/2010 Injection Injection Olvin Albert, M.DIsaiah 04/09/2010 Injection Injection Olvin Albert, M.DIsaiah 03/19/2010 Injection Injection Olvin Albert, M.DIsaiah 02/17/2010 Injection Injection Olvin Albert, M.DIsaiah 01/29/2010 Injection Injection Olvin Albert, M.DIsaiah 01/13/2010 Injection Injection Olvin Albert, M.DIsaiah 12/30/2009 Injection Injection Olvin Albert, M.DIsaiah 12/16/2009 Injection Injection Olvin Albert, M.DIsaiah 11/11/2009 Injection Injection Olvin Albert, MIsaiahDIsaiah 10/30/2009 Injection Injection Olvin Albert, hSanikaDIsaiah 10/11/2009 Injection Injection Olvin Albert, ShanikaDIsaiah 09/30/2009 Injection Injection Olvin Albert, ShanikaDIsaiah 09/09/2009 Injection Injection Olvin Albert, ShanikaDIsaiah 08/14/2009 Injection Injection Olvin Albert, Michael.DIsaiah 07/19/2009 Injection Injection Olvin Albert, M.DIsaiah 06/19/2009 Injection Injection Olvin Albert, Jason 05/13/2009 Injection Injection Olvin Albert, Jason 04/10/2009 Injection Injection Jennifer Lucas MD 03/11/2009 Injection Injection Olvin Albert, M.DIsaiah 02/25/2009 Injection Injection Olvin Albert, Jason 02/06/2009 Injection Injection Olvin Albert, Jason 01/21/2009 Injection Injection Olvin Albert, M.DIsaiah 12/31/2008 Injection Injection Olvin Albert, M.DIsaiah 12/12/2008 Injection Injection Olvin Albert, MIsaiahDIsaiah 11/28/2008 Injection Injection Olvin Albert, M.DIsaiah 11/12/2008 Injection Injection Olvin Albert, M.DIsaiah 10/24/2008 Injection Injection Olvin Albert, M.DIsaiah 10/08/2008 Injection Injection Olvin Albert, MIsaiahDIsaiah 09/12/2008 Injection Injection Olvin Albert, M.D. 08/13/2008 Injection Injection Olvin Albert, M.DIsaiah 07/30/2008 Injection Injection Olvin Albert, M.DIsaiah 07/16/2008 Injection Injection Olvin Albert, M.DIsaiah 07/02/2008 Injection Injection Olvin Albert, M.DIsaiah 06/11/2008 Injection Injection Olvin Albert, M.DIsaiah 06/01/2008 Injection Injection Olvin Albert, M.DIsaiah 04/30/2008 Injection Injection Olvin Albert, M.DIsaiah 03/16/2008 Injection Injection Olvin Albert, M.DIsaiah 02/29/2008 Injection Injection Olvin Albert, M.DIsaiah 02/10/2008 Injection Injection Olvin Albert, M.DIsaiah 01/25/2008 Injection Injection Olvin Albert, M.DIsaiah 01/02/2008 Injection Injection Olvin Albert, M.DIsaiah 12/14/2007 Injection Injection Olvin Albert, M.DIsaiah 11/21/2007 Injection Injection Olvin Albert, M.DIsaiah 10/19/2007 Injection Injection Olvin Albert, M.DIsaiah 09/28/2007 Injection Injection Olvin Albert, M.DIsaiah 09/14/2007 Injection Injection Olvin Albert, M.DIsaiah 08/29/2007 Injection Injection Olvin Albert, M.DIsaiah 08/15/2007 Injection Injection Olvin Albert, M.DIsaiah 08/01/2007 Injection Injection Olvin Albert, M.DIsaiah 07/15/2007 Injection Injection Olvin Albert, M.DIsaiah 06/22/2007 Injection Injection Olvin Albert, M.DIsaiah 05/09/2007 Injection Injection Olvin Albert, M.DIsaiah 04/13/2007 Injection Injection Olvin Albert, M.DIsaiah 03/28/2007 Injection Injection Olvin Albert, M.DIsaiah 03/16/2007 Injection Injection Olvin Albert, M.DIsaiah 02/21/2007 Injection Injection Olvin Albert, M.DIsaiah 02/04/2007 Injection Injection Olvin Albert, M.DIsaiah 01/10/2007 Injection Injection Olvin Albert, M.DIsaiah 12/24/2006 Injection Injection Olvin Albert, M.DIsaiah 12/06/2006 Injection Injection Olvin Albert, M.DIsaiah 11/15/2006 Injection Injection Olvin Albert, M.DIsaiah 10/18/2006 Injection Injection Olvin Albert, M.DIsaiah 10/04/2006 Injection Injection Olvin Albert, Michael.DIsaiah 09/06/2006 Injection Injection Olvin Albret, Michael.DIsaiah 08/23/2006 Injection Injection Olvin Albert, Michael.DIsaiah 08/02/2006 Injection Injection Olvin Albert, M.DIsaiah 07/19/2006 Injection Injection Olvin Albert, M.DIsaiah 06/28/2006 Injection Injection Olvin Albert, Michael.DIsaiah 06/14/2006 Injection Injection Olvin Albert, Michael.DIsaiah 05/28/2006 Injection Injection Olvin Albert, Michael.DIsaiah 05/10/2006 Injection Injection Olvin Albert, Michael.DIsaiah 04/19/2006 Injection Injection Olvin Albert, Michael.DIsaiah 03/26/2006 Injection Injection Olvin Albert, Michael.DIsaiah 03/10/2006 Injection Injection Olvin Albert, Michael.DIsaiah 02/15/2006 Injection Injection Olvin Albert, Michael.DIsaiah 01/27/2006 Injection Injection Olvin Albert, ShanikaDIsaiah 01/11/2006 Injection Injection Olvin Albert, Michael.DIsaiah 12/28/2005 Injection Injection Olvin Albert, Michael.DIsaiah 12/16/2005 Injection Injection Olvin Albert, Michael.DIsaiah 12/02/2005 Injection Injection Olvin Albert, Michael.DIsaiah 11/16/2005 Injection Injection Olvin Albert, Michael.DIsaiah 10/30/2005 Injection Injection Olvin Albert, M.DIsaiah 10/05/2005 Injection Injection Olvin Albert, M.DIsaiah 09/14/2005 Injection Injection Olvin Albert, Michael.DIsaiah 08/31/2005 Injection Injection Olvin Albert, M.DIsaiah 08/17/2005 Injection Injection Olvin Albert, Michael.DIsaiah 08/03/2005 Injection Injection Olvin Albert, Michael.DIsaiah 07/20/2005 Injection Injection Olvin Albert, M.DIsaiah 06/29/2005 Injection Injection Olvin Albert, M.D. 06/15/2005 Injection Injection Olvin Albert, M.D. 05/27/2005 Injection Injection Olvin Albert, M.D. 04/27/2005 Injection Injection Olvin Albert, M.D. 04/06/2005 Injection Injection Olvin Albert, M.D. 03/23/2005 Injection Injection Olvin Albert, M.D. 03/02/2005 Injection Injection Olvin Albert, M.D. 02/06/2005 Injection Injection Olvin Albert, M.DIsaiah 01/19/2005 Injection Injection Olvin Albert, M.DIsaiah 01/02/2005 Injection Injection Olvin Albert, M.DIsaiah 12/22/2004 Injection Injection Olvin Albert, M.DIsaiah 12/05/2004 Injection Injection Olvin Albert, M.DIsaiah 11/19/2004 Injection Injection Olvin Albert, M.DIsaiah 11/05/2004 Injection Injection Olvin Albert, M.DIsaiah 10/20/2004 Injection Injection Olvin Albert, M.DIsaiah 10/06/2004 Injection Injection Olvin Albert, M.DIsaiah 09/15/2004 Injection Injection Olvin Albert, M.DIsaiah 08/25/2004 Injection Injection Olvin Albert, M.D. 08/01/2004 Injection Injection Olvin Albert, M.D. 07/21/2004 Injection Injection Olvin Albert, M.DIsaiah 07/04/2004 Injection Injection Olvin Albert, M.D. 06/13/2004 Injection Injection Olvin Albert, M.D. 05/26/2004 Injection Injection Olvin Albert, M.D. 05/12/2004 Injection Injection Olvin Albert, M.DIsaiah 04/21/2004 Injection Injection Olvin Albert, M.D. 03/31/2004 Injection Injection Olvin Albert, M.D. 03/14/2004 Injection Injection Olvin Albert, M.D. 03/03/2004 Injection Injection Olvin Albert, M.DIsaiah 02/11/2004 Injection Injection Olvin Albert, M.DIsaiah 01/21/2004 Injection Injection Olvin AlbertJason jane 01/07/2004 Injection Injection Olvin AlbertJason jane 12/24/2003 Injection Injection Olvin AlbertJason jane 12/07/2003 Injection Injection Olvin Albert, Jason 11/21/2003 Injection Injection Olvin AlbertJason 11/05/2003 Injection Injection Olvin AlbertJason jane 10/17/2003 Injection Injection Olvin AlbertJason 10/01/2003 Injection Injection Olvin Albert, Jason 09/17/2003 Injection Injection Olvin Albert, Jason 08/27/2003 Injection Injection Olvin AlbertJason jane 08/13/2003 Injection Injection Olvin AlbertJason 07/16/2003 Injection Injection Olvin AlbertJason jane 07/02/2003 Injection Injection Olvin AlbertJason jane 06/11/2003 Injection Injection Olvin AlbertJason jane 05/28/2003 Injection Injection Olvin AlbertJason jane 05/07/2003 Injection Injection Olvin AlbertJason jane 04/16/2003 Injection Injection Olvin AlbertJason jane 03/12/2003 Injection Injection Olvin AlbertJason jane 02/19/2003 Injection Injection Olvin AlbertJason jane 01/22/2003 Injection Injection Olvin Jason Price 01/10/2003 Injection Injection Olvinladonna Price M.D. 12/27/2002 Injection Immunizations CPT Code Status Date Vaccine Lot # 91715 Given 02/05/2014 Influenza Vaccine 51122 Given 05/31/2011 Pneumococcal Vaccine 87758 Given Unknown Pneumococcal Vaccine 87828 Given Unknown Influenza Vaccine 97171 Given Unknown Influenza Vaccine 29172 Given Unknown Influenza Vaccine 71293 Given Unknown Influenza Vaccine Vital Signs Date Vital Result Comment 06/14/2019 9:21am Height 65 inches 5'5" pt stated Weight 157.00 lb Weight 71.215 kg Respiratory Rate 16 /min Heart Rate 88 /min O2 % BldC Oximetry 98 % BP Systolic 145 mmHg BP Diastolic 57 mmHg BMI (Body Mass Index) 26.1 kg/m2 08/09/2017 9:39am Height 65 inches 5'5" pt stated Weight 162.00 lb Weight 73.483 kg Respiratory Rate 18 /min Heart Rate 71 /min O2 % BldC Oximetry 96 % BP Systolic 152 mmHg BP Diastolic 75 mmHg BMI (Body Mass Index) 27.0 kg/m2 Results Description No Information Available Procedures Date Code Description Status 06/05/2019 86382 Injection Completed 05/03/2019 53817 Injection Completed 04/10/2019 51309 Injection Completed 03/24/2019 59527 Injection Completed 03/08/2019 92927 Injection Completed 02/22/2019 89775 Injection Completed 02/10/2019 44509 Injection Completed 02/07/2019 54379 Extract 1-10 Completed 01/27/2019 08813 Injection Completed 01/09/2019 10540 Injection Completed 12/28/2018 05158 Injection Completed Medical Devices Description No Information Available Encounters Type Date Location Provider Dx Diagnosis Office Visit 06/14/2019 [place] Iraida Flores, J30.1 Allergic rhinitis due 9:40a PENSION MANAGER-C to pollen J30.2 Other seasonal allergic rhinitis J30.81 Allergic rhinitis due to animal (cat) (dog) hair and dander J30.89 Other allergic rhinitis R05 Cough Assessments Date Code Description Provider 06/14/2019 J30.1 Allergic rhinitis due to pollen Iraida Uldrich, PENSION MANAGER-C 06/14/2019 J30.2 Other seasonal allergic rhinitis Iraida Uldrich, PENSION MANAGER-C 06/14/2019 J30.81 Allergic rhinitis due to animal (cat) (dog) Iraida Uldrich, PENSION MANAGER-C hair and dander 06/14/2019 J30.89 Other allergic rhinitis Iraida Uldrich, PENSION MANAGER-C 06/14/2019 R05 Cough Iraida Uldrich, PENSION MANAGER-C 06/05/2019 J30.1 Allergic rhinitis due to pollen Adolfo Torres M.D. 06/05/2019 J30.1 Allergic rhinitis due to pollen Allergy Injection 06/05/2019 J30.2 Other seasonal allergic rhinitis Adolfo Torres M.D. 06/05/2019 J30.2 Other seasonal allergic rhinitis Allergy Injection 06/05/2019 J30.81 Allergic rhinitis due to animal (cat) (dog) Adolfo Torres M.D. hair and dander 06/05/2019 J30.81 Allergic rhinitis due to animal (cat) (dog) Allergy Injection hair and dander 06/05/2019 J30.89 Other allergic rhinitis Adolfo Torres M.D. 06/05/2019 J30.89 Other allergic rhinitis Allergy Injection 05/03/2019 J30.1 Allergic rhinitis due to pollen Adolfo Torres M.D. 05/03/2019 J30.1 Allergic rhinitis due to pollen Allergy Injection 05/03/2019 J30.2 Other seasonal allergic rhinitis Adolfo Torres M.D. 05/03/2019 J30.2 Other seasonal allergic rhinitis Allergy Injection 05/03/2019 J30.81 Allergic rhinitis due to animal (cat) (dog) Adolfo Torres M.D. hair and dander 05/03/2019 J30.81 Allergic rhinitis due to animal (cat) (dog) Allergy Injection hair and dander 05/03/2019 J30.89 Other allergic rhinitis Adolfo Torres M.D. 05/03/2019 J30.89 Other allergic rhinitis Allergy Injection 04/10/2019 J30.1 Allergic rhinitis due to pollen Adolfo Torres M.D. 04/10/2019 J30.1 Allergic rhinitis due to pollen Allergy Injection 04/10/2019 J30.2 Other seasonal allergic rhinitis Adolfo Torres M.D. 04/10/2019 J30.2 Other seasonal allergic rhinitis Allergy Injection 04/10/2019 J30.81 Allergic rhinitis due to animal (cat) (dog) Adolfo Torres M.D. hair and dander 04/10/2019 J30.81 Allergic rhinitis due to animal (cat) (dog) Allergy Injection hair and dander 04/10/2019 J30.89 Other allergic rhinitis Adolfo Torres M.D. 04/10/2019 J30.89 Other allergic rhinitis Allergy Injection 03/24/2019 J30.1 Allergic rhinitis due to pollen Adolfo Torres M.D. 03/24/2019 J30.1 Allergic rhinitis due to pollen Allergy Injection 03/24/2019 J30.2 Other seasonal allergic rhinitis Adolfo Torrse M.D. 03/24/2019 J30.2 Other seasonal allergic rhinitis Allergy Injection 03/24/2019 J30.81 Allergic rhinitis due to animal (cat) (dog) Adolfo Torres M.D. hair and dander 03/24/2019 J30.81 Allergic rhinitis due to animal (cat) (dog) Allergy Injection hair and dander 03/24/2019 J30.89 Other allergic rhinitis Adolfo Torres M.D. 03/24/2019 J30.89 Other allergic rhinitis Allergy Injection 03/08/2019 J30.1 Allergic rhinitis due to pollen Adolfo Torres M.D. 03/08/2019 J30.1 Allergic rhinitis due to pollen Allergy Injection 03/08/2019 J30.2 Other seasonal allergic rhinitis Adolfo Torres M.D. 03/08/2019 J30.2 Other seasonal allergic rhinitis Allergy Injection 03/08/2019 J30.81 Allergic rhinitis due to animal (cat) (dog) Adolfo Torres M.D. hair and dander 03/08/2019 J30.81 Allergic rhinitis due to animal (cat) (dog) Allergy Injection hair and dander 03/08/2019 J30.89 Other allergic rhinitis Adolfo Torres M.D. 03/08/2019 J30.89 Other allergic rhinitis Allergy Injection 02/22/2019 J30.1 Allergic rhinitis due to pollen Adolfo Torres M.D. 02/22/2019 J30.1 Allergic rhinitis due to pollen Allergy Injection 02/22/2019 J30.2 Other seasonal allergic rhinitis Adolfo Torres M.D. 02/22/2019 J30.2 Other seasonal allergic rhinitis Allergy Injection 02/22/2019 J30.81 Allergic rhinitis due to animal (cat) (dog) Adolfo Torres M.D. hair and dander 02/22/2019 J30.81 Allergic rhinitis due to animal (cat) (dog) Allergy Injection hair and dander 02/22/2019 J30.89 Other allergic rhinitis Adolfo Torres M.D. 02/22/2019 J30.89 Other allergic rhinitis Allergy Injection 02/10/2019 J30.1 Allergic rhinitis due to pollen Adolfo Torres M.D. 02/10/2019 J30.1 Allergic rhinitis due to pollen Allergy Injection 02/10/2019 J30.2 Other seasonal allergic rhinitis Adolfo Torres M.D. 02/10/2019 J30.2 Other seasonal allergic rhinitis Allergy Injection 02/10/2019 J30.81 Allergic rhinitis due to animal (cat) (dog) Adolfo Torres M.D. hair and dander 02/10/2019 J30.81 Allergic rhinitis due to animal (cat) (dog) Allergy Injection hair and dander 02/10/2019 J30.89 Other allergic rhinitis Adolfo Torres M.D. 02/10/2019 J30.89 Other allergic rhinitis Allergy Injection 02/07/2019 J30.1 Allergic rhinitis due to pollen Adolfo Torres M.D. 02/07/2019 J30.2 Other seasonal allergic rhinitis Adolfo Torres M.D. 02/07/2019 J30.81 Allergic rhinitis due to animal (cat) (dog) Adolfo Torres M.D. hair and dander 02/07/2019 J30.89 Other allergic rhinitis Adolfo Torres M.D. 01/27/2019 J30.1 Allergic rhinitis due to pollen Adolfo Torres M.D. 01/27/2019 J30.1 Allergic rhinitis due to pollen Allergy Injection 01/27/2019 J30.2 Other seasonal allergic rhinitis Adolfo Torres M.D. 01/27/2019 J30.2 Other seasonal allergic rhinitis Allergy Injection 01/27/2019 J30.81 Allergic rhinitis due to animal (cat) (dog) Adolfo Torres M.D. hair and dander 01/27/2019 J30.81 Allergic rhinitis due to animal (cat) (dog) Allergy Injection hair and dander 01/27/2019 J30.89 Other allergic rhinitis Adolof Torres M.D. 01/27/2019 J30.89 Other allergic rhinitis Allergy Injection 01/09/2019 J30.1 Allergic rhinitis due to pollen Adolfo Torres M.D. 01/09/2019 J30.1 Allergic rhinitis due to pollen Allergy Injection 01/09/2019 J30.2 Other seasonal allergic rhinitis Adolfo Torres M.D. 01/09/2019 J30.2 Other seasonal allergic rhinitis Allergy Injection 01/09/2019 J30.81 Allergic rhinitis due to animal (cat) (dog) Adolfo Torres M.D. hair and dander 01/09/2019 J30.81 Allergic rhinitis due to animal (cat) (dog) Allergy Injection hair and dander 01/09/2019 J30.89 Other allergic rhinitis Adolfo Torres M.D. 01/09/2019 J30.89 Other allergic rhinitis Allergy Injection 12/28/2018 J30.1 Allergic rhinitis due to pollen Adolfo Torres M.D. 12/28/2018 J30.1 Allergic rhinitis due to pollen Allergy Injection 12/28/2018 J30.2 Other seasonal allergic rhinitis Adolfo Torres M.D. 12/28/2018 J30.2 Other seasonal allergic rhinitis Allergy Injection 12/28/2018 J30.81 Allergic rhinitis due to animal (cat) (dog) Adolfo Torres M.D. hair and dander 12/28/2018 J30.81 Allergic rhinitis due to animal (cat) (dog) Allergy Injection hair and dander 12/28/2018 J30.89 Other allergic rhinitis Adolfo Torres M.D. 12/28/2018 J30.89 Other allergic rhinitis Allergy Injection Plan of Treatment 06/14/2019 - FANY Álvarez-CJ30.1 Allergic rhinitis due to lltdemQ70.2 Other seasonal allergic kegnjkihG71.81 Allergic rhinitis due to animal (cat) ( dog) hair and zreokaA84.89 Other allergic [id number] CoughNew Medication: Olopatadine HCL 0.2 %Recommendations:Continue all medications as prescribed.Refrain from wearing perfumes/scented colognes while visitingour office. try the olopatadine eye drops for the itchy eyes Continue the benadryl 1 daily now Continue the Flonase 2 sprays each nostril daily Proair 2 puffs every 4 hours as needed for cough, shortness of breath, wheezing or chest tightness. Monitor Albuterol use. If using more than 2x/week, please call the office as your asthma medications may need to be adjusted. Continue the allergy shots Functional Status Description No Information Available Mental Status Description No Information Available Referrals Description No Information Available
--- OUTSIDE RECORDS SUMMARY | 2019-06-21 23:48 | XMS REPORT | Continuity of Care Document ---
:1945 External Reference #:[id number] Author Name Hiral Corey MD (transmitted by agent of provider Michelle Aparicio) Address [address] [place] [address] Care Team Providers Name Role Phone Daren Root MD - Internal Care Team Information Holter Scanning Technician Medicine Dallin Stern MD - Occupational Care Team Information Holter Scanning Technician Medicine Brandee Mayfield M.D. 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 Encounter for planned postprocedural Markos Velasco M.D., [facility], FSCAI Onset: wound closure Left bundle branch block Markos Velasco M.D., [facility], [facility] Onset: 02/14/2019 Chest pain Kaden Iglesias M.D., [facility], Onset: 03/08/2019 FASNC Social History Type Date Description Comments Sex Unknown Tobacco Use Start: Unknown Never Smoked Cigarettes Smoking Status Reviewed: 04/28/19 Never Smoked Cigarettes ETOH Use Denies alcohol [...] Medications SIG Qnty Indications Ordering Date Provider Hydralazine HCL 1 tab by mouth 180tabs Mohammad A. 05/03/2019 25mg three times a day MD Madhav Tablets Spironolactone 1 by mouth every 30tabs Mohammad A. 04/07/2019 25mg day MD Madhav Tablets Amlodipine Besylate 1 by mouth every 30tabs I10 Caty Kearns, 04/04/2019 10mg day M.D. Tablets Mupirocin apply a thin 22gm K13.0 Caty Kearns, 04/04/2019 2% Ointment layer on the skin M.D. of affected area twice a day for 5 days Losartan Potassium 1 by mouth every 90tabs I10 Brandee Mayfield MD 02/22/2019 100mg day Tablets Pantoprazole Sodium 1 by mouth every 90tabs K21.9 Brandee Mayfield MD [address] Acetaminophen-Codeine one by mouth 90tabs M13.0 Caty Kearns, 01/16/2019 #4 every 6 hours as M.D. 300-60mg Tablets needed for pain Prolia one sc every 6 1ml M81.0 Brandee Mayfield MD 01/16/2019 60mg/ml Soln months Prefill Syringe Ranitidine HCL take one tablet 60tabs Brandee Mayfield MD 09/17/2018 150mg by mouth daily as Tablets needed Fluticasone Propionate use 2 sprays in 16units Sadi Jamil, 05/07/2018 each nostril one NAPRAPATH 50mcg/Act Suspension time a day for 1 week, then 1 spray thereafter Phenazopyridine HCL 2 tabs po tid as 24tabs Alcidesute Omero, 01/04/2018 100mg needed NAPRAPATH Tablets Blood Pressure Cuff use daily as 1units I10 Alcidesute Omero, 09/29/2017 [facility] instructed to NAPRAPATH check bp Gabapentin 2 tab at night 180tabs Brandee Mayfield MD 09/15/2017 600mg Tablets Simvastatin 1 by mouth every 90tabs Brandee Mayfield MD 08/25/2013 20mg Tablets day Aspir-81 1 by mouth every Kaden Dawn 08/25/[address] reta Iglesias M.D., [facility], [facility] Amitriptyline HCL 1 by mouth every 90tabs M79.7 Zsofia Omero, 50mg night at bedtime NAPRAPATH Tablets Cymbalta 1 by mouth [facility] Caps [facility] reta NAPRAPATH Part Vitamin B-12 1 by mouth every 30tabs Unknown 500mcg day( when Tablets Sub remembers) Multivitamin 1 by mouth every Unknown Tablets day (when she remembers) Citracal 2-4 a day PO(when Unknown Tablets remembers) Carafate one tablet on Unknown 1gm Tablets empty stomach one hour before meals daily. (3xdaily) Cephalexin [place], 500mg Capsules Leo Dickson MD History Medications Losartan Potassium one pill a day 90tabs I10 Markos Velasco M.D., 2018 - [facility], [facility] [place] [place] 02/22/2019 50mg Tablets Medications Administered in Office Medication SIG Qnty Indications Ordering Provider Date Prolia Injection, Denosumab, Nurse Visit A 03/09/2019 1MG Injection Inj, Regadenoson, 0.1 MG Kaden Iglesias M.D., 10/08/2014 Injection FACC, FASNC Technetium TC 99M Kaden Iglesias M.D., 10/08/2014 Tetrofosmin, Per Unit Dose Up FACC, FASNC To 40 Millicuries Injection Depomedrol 80MG Flor Licona M.D. 05/03/2013 Injection Inj, Regadenoson, 0.1 MG Kaden Iglesias M.D., 08/08/2012 Injection FACC, FASNC Aminophylline Kaden Iglesias M.D., 08/08/2012 Injection FACC, FASNC Technetium TC 99M Kaden Iglesias M.D., 08/08/2012 Tetrofosmin, Per Unit Dose Up FACC, FASNC To 40 Millicuries Injection Immunizations CPT Code Status Date Vaccine Lot # [id number] Given 04/17/2019 Pneumococcal Conjugate Vaccine 13 Valent For [id number] Intramuscular Use [id number] Given 02/15/2019 Influenza Virus Vaccine, Quadrivalent, Split, Im Use 6-35mo 05138 Given 02/06/2017 Pneumonia Vaccine 12202 Given 02/06/2017 Influenza Virus Vaccine, Quadrivalent, Split, Preservative Free Vital Signs Date Vital Result Comment 04/28/2019 9:42am Height 65 inches 5'5" Weight 160.00 lb Heart Rate 73 /min BP Systolic Sitting 162 mmHg L arm BP Diastolic Sitting 78 mmHg L arm O2 % BldC Oximetry 98 % BMI (Body Mass Index) 26.6 kg/m2 04/19/2019 9:44am Height 65 inches 5'5" Weight 156.00 lb Heart Rate 86 /min BP Systolic Sitting 114 mmHg BP Diastolic Sitting 64 mmHg O2 % BldC Oximetry 99 % BMI (Body Mass Index) 26.0 kg/m2 Results Test Acquired Date Facility Test Result H/L Range Note Neph Routine 04/26/2019 [facility] Total Protein 70 mg/dL [address] [place] [address] [phone] Creatinine Random Urine 250.86 mg/dL CBC Auto 04/26/2019 [facility] White Blood 4.2 10^3/uL Normal 3.5-10.[address] Count [place], [place] [id number] [phone] Red Blood Count 3.82 10^6/uL Normal 3.70-4.87 [...] Blood Cells % 0.0 Basic Metabolic 04/26/2019 [facility] Sodium 142 mmol/L Normal 135-[address] [place] [address] [phone] Potassium 3.8 mmol/L Normal 3.5-5.0 Chloride 109 mmol/L Normal 101-111 Co2 Carbon Dioxide 25 mmol/L Normal 22-32 Anion Gap 8 mmol/L Normal 2-11 Glucose 120 mg/dL High 70-100 Blood Urea Nitrogen 21 mg/dL Normal 6-24 Creatinine 1.71 mg/dL High 0.51-0.95 BUN/Creatinine Ratio 12.3 Normal 8-20 Calcium 9.4 mg/dL Normal 8.6-10.3 Egfr Non- 29.3 >60 Egfr 35.5 >60 1 Urinalysis Profile 04/26/2019 [facility] Urine Color Yellow [address] [place] [address] [phone] Urine Appearance Clear Urine Specific [place] 1.026 Normal 1.010-1.030 Urine pH 5.0 Normal 5-9 Urine Urobilinogen Negative Negative Urine Ketones Negative Negative Urine Protein 1+(30 mg/dL) Abnormal Negative Urine Leukocytes Trace Abnormal Negative Urine Blood Negative Negative * * Abnormal Negative 2 Urine Nitrite Negative Negative Urine Bilirubin Negative Negative Urine Glucose Negative Negative Urine White Blood Cell Trace(0-5/hpf) Absent Urine Red Blood Cell Trace(0-2/hpf) Absent Urine Bacteria Absent Absent Urine Squamous Epithelial Cell Present Abnormal Absent Urine Calcium Oxalate Cryst Present Abnormal Absent Urine Culture And 04/26/2019 [facility] Urine Culture SEE RESULT [address] BEL[address] [place], [place] [id number] [phone] Protein 04/18/2019 [facility] Total 6.9 g/dL 6.3 - Electrophoresis DRIVE Protein(Pep) 7.9 [place] [address] [phone] Albumin 3.8 g/dL 3.4-4.7 Alpha-1 Globulin 0.2 g/dL 0.1-0.3 Alpha-2 Globulin 1.0 g/dL 0.6-1.0 Beta Globulin 1.0 g/dL 0.7-1.2 Gamma Globulin 0.9 g/dL 0.6-1.6 Albumin/Globulin Ratio 1.22 Impression See Comment 4 Hepatitis C Antibody 04/18/2019 [facility] HCV Index 0.02 s/c [address] [place], [place] [id number] [phone] Hepatitis C Antibody Negative Negative Laboratory 04/18/2019 [facility] Hemoglobin 6.1 % High 4.0- 5.[address] A1c ([place] [address] HGB) [phone] HIV 1&2 p24 04/18/2019 [facility] HIV 4th Nonreactive Nonreactive Screen DRIVE Generation [place], [place] [id number] [phone] Laboratory 04/18/2019 [facility] TSH (Thyroid 3.81 mcIU/mL Normal 0.34-5.[address] Stim Horm) [place], [place] [id number] [phone] Basic 04/18/2019 [facility] Sodium 137 mmol/L Normal 135-[address] [place] [address] [phone] Potassium 4.8 mmol/L Normal 3.5-5.0 Chloride 106 mmol/L Normal 101-111 Co2 Carbon Dioxide 24 mmol/L Normal 22-32 Anion Gap 7 mmol/L Normal 2-11 Glucose 112 mg/dL High 70-100 Blood Urea Nitrogen 28 mg/dL High 6-24 Creatinine 1.93 mg/dL High 0.51-0.95 BUN/Creatinine Ratio 14.5 Normal 8-20 Calcium 9.0 mg/dL Normal 8.6-10.3 Egfr Non- 25.5 >60 Egfr 30.9 >60 6 Laboratory test 04/18/2019 [facility] Creatinine Random 89.12 mg /dL finding [address] [place] [address] [phone] Total Protein Random Urine 25 mg/dL CBC Auto 04/18/2019 [facility] White Blood 4.5 10^3/uL Normal 3.5-10.[address] [place] [address] [phone] Red Blood Count 3.90 10^6/uL Normal 3.70-4.87 [...] Blood Cells % 0.0 Urinalysis Profile 04/18/2019 [facility] Urine Color Yellow [address] [place] [address] [phone] Urine Appearance Clear Urine Specific [place] 1.013 Normal 1.010-1.030 Urine pH 5.0 Normal 5-9 Urine Urobilinogen Negative Negative Urine Ketones Negative Negative Urine Protein Negative Negative Urine Leukocytes Negative Negative Urine Blood Negative Negative Urine Nitrite Negative Negative Urine Bilirubin Negative Negative Urine Glucose Negative Negative Neph Routine 04/10/2019 [facility] Total Protein Random 15 mg/ dL [address] [facility] [place] [address] [phone] Creatinine Random Urine 61.39 mg/dL Urinalysis Profile 04/10/2019 [facility] Urine Color Yellow [address] [place] [address] [phone] Urine Appearance Clear Urine Specific [place] 1.011 Normal 1.010-1.030 Urine pH 5.0 Normal 5-9 Urine Urobilinogen Negative Negative Urine Ketones Negative Negative Urine Protein Negative Negative Urine Leukocytes Negative Negative Urine Blood Negative Negative Urine Nitrite Negative Negative Urine Bilirubin Negative Negative Urine Glucose Negative Negative Hepatitis C Antibody 04/08/2019 [facility] HCV Index 0.01 s/c [address] [place] [address] [phone] Hepatitis C Antibody Negative Negative Basic Metabolic 04/08/2019 [facility] Sodium 138 mmol/L Normal 135-145 Panel [address] [place] [address] [phone] Potassium 4.4 mmol/L Normal 3.5-5.0 Chloride 102 mmol/L Normal 101-111 Co2 Carbon Dioxide 29 mmol/L Normal 22-32 Anion Gap 7 mmol/L Normal 2-11 Glucose 105 mg/dL High 70-100 Blood Urea Nitrogen 30 mg/dL High 6-24 Creatinine 1.74 mg/dL High 0.51-0.95 BUN/Creatinine Ratio 17.2 Normal 8-20 Calcium 9.0 mg/dL Normal 8.6-10.3 Egfr Non- 28.8 >60 Egfr 34.8 >60 7 CBC Auto 04/08/2019 [facility] White Blood 3.6 10^3/uL Normal 3.5-10.8 Diff [address] [facility] [place] [address] [phone] Red Blood Count 3.95 10^6/uL Normal 3.70-4.87 [...] Blood Cells % 0.2 Neph Routine 04/08/2019 [facility] Urine Random Total 52 mg/dL [address] [place] [address] [phone] Urine Random Creatinine 190.93 mg/dL CBC Auto 03/29/2019 [facility] White Blood 9.4 10^3/uL Normal 3.5-10.[address] [place] [address] [phone] Red Blood Count 4.02 10^6/uL Normal 3.70-4.87 [...] Blood Cells % 0.0 Basic Metabolic 03/29/2019 [facility] Sodium 140 mmol/L Normal 135-[address] [place] [address] [phone] Potassium 3.9 mmol/L Normal 3.5-5.0 Chloride 106 mmol/L Normal 101-111 Co2 Carbon Dioxide 27 mmol/L Normal 22-32 Anion Gap 7 mmol/L Normal 2-11 Glucose 81 mg/dL Normal 70-100 Blood Urea Nitrogen 24 mg/dL Normal 6-24 Creatinine 1.49 mg/dL High 0.51-0.95 BUN/Creatinine Ratio 16.1 Normal 8-20 Calcium 9.5 mg/dL Normal 8.6-10.3 Egfr Non- 34.4 >60 Egfr 41.6 >60 8 Urinalysis Profile 03/29/2019 [facility] Urine Color [place] [address] [place] [address] [phone] Urine Appearance Cloudy Urine White Blood Cell 3+(>20/hpf) Abnormal Absent Urine Red Blood Cell 3+(>10/hpf) Abnormal Absent Urine Bacteria Absent Absent Urine Culture And 03/29/2019 [facility] Urine SEE RESULT [address] [place] [address] [phone] Basic Metabolic 02/22/2019 [facility] Sodium 140 mmol/L Normal 135- Panel [address] [place] [address] [phone] Potassium 4.1 mmol/L Normal 3.5-5.0 Chloride 104 mmol/L Normal 101-111 Co2 Carbon Dioxide 31 mmol/L Normal 22-32 Anion Gap 5 mmol/L Normal 2-11 Glucose 86 mg/dL Normal 70-100 Blood Urea Nitrogen 23 mg/dL Normal 6-24 Creatinine 1.44 mg/dL High 0.51-0.95 BUN/Creatinine Ratio 16.0 Normal 8-20 Calcium 9.5 mg/dL Normal 8.6-10.3 Egfr Non- 35.8 >60 Egfr 43.3 >60 11 Basic Metabolic 02/10/2019 [facility] Sodium 139 mmol/L Normal 135-[address] [place] [address] [phone] Potassium 4.0 mmol/L Normal 3.5-5.0 Chloride 101 mmol/L Normal 101-111 Co2 Carbon Dioxide 35 mmol/L High 22-32 Anion Gap 3 mmol/L Normal 2-11 Glucose 93 mg/dL Normal 70-100 Blood Urea Nitrogen 20 mg/dL Normal 6-24 Creatinine 1.35 mg/dL High 0.51-0.95 BUN/Creatinine Ratio 14.8 Normal 8-20 Calcium 9.6 mg/dL Normal 8.6-10.3 Egfr Non- 38.5 >60 Egfr 46.6 >60 12 Laboratory test 02/10/2019 [facility] Magnesium 2.1 mg/dL Normal 1.9-2.7 finding [address] [place] [address] [phone] Free T4 (Free Thyroxine) 0.95 ng/dL Normal 0.61-1.12 Laboratory test 02/06/2019 [facility] Troponin-I (TnI) 0.00 ng/ mL <0.04 13 finding [address] [place] [address] [phone] Magnesium 2.4 mg/dL Normal 1.9-2.7 TSH (Thyroid Stim Horm) 6.64 mcIU/mL High 0.34-5.60 Vitamin B12 405 pg/mL Normal 180-914 14 Comp Metabolic 02/06/2019 [facility] Sodium 139 mmol/L Normal 135-145 Panel [address] [place] [address] [phone] Potassium 3.7 mmol/L Normal 3.5-5.0 Chloride 101 [...] Egfr Non- 37.9 >60 Egfr 45.9 >60 15 Inr/Protime 02/06/2019 [facility] Inr 0.98 Normal 0.82-1.[address] [place] [address] [phone] CBC Auto Diff 02/06/2019 [facility] White Blood 3.5 Normal 3.5 -10.[address] Count 10^3/[place] [address] [phone] Red Blood Count 4.57 10^6/uL Normal 3.70-4.87 [...] Red Blood Cells % 0.0 Laboratory 02/06/2019 [facility] Troponin-I 0.01 <0.04 17 test finding [address] (TnI) ng/[place] [address] [phone] CBC Auto Diff 02/02/2019 [facility] White Blood 4.0 Normal 3.5 -10.[address] Count 10^3/[place] [address] [phone] Red Blood Count 4.24 10^6/uL Normal 3.70-4.87 [...] Blood Cells % 0.1 Comp Metabolic 02/02/2019 [facility] Sodium 139 mmol/L Normal 135-[address] [place] [address] [phone] Potassium 3.4 mmol/L Low 3.5-5.0 Chloride 103 [...] Egfr Non- 38.5 >60 Egfr 46.6 >60 18 Laboratory test 02/02/2019 [facility] Lipase 17 U/L Normal 11.0-82.[address] [place] [address] [phone] C Reactive Protein < 1.00 mg/L Normal <8.01 Lactic Acid 0.7 mmol/L Normal 0.5-2.0 19 Urinalysis Profile 02/02/2019 [facility] Urine Color Colorless [address] [place] [address] [phone] Urine Appearance Clear Urine Specific [place] 1.003 Low 1.010-1.030 Urine pH 7.0 Normal [...] 5 Kidney failure <15 (or dialysis) 2 *Ascorbic acid is present which may interfere with detection of blood. 3 SEE RESULT BELOW Name: CARLYLE GIANG : [address]: Hiral Corey MD Acct: [id number] Unit: [id number] AGE: 73 Location: LAB Re04/26/19 SEX: F Status: REG REF SPEC: [id number] ORION: 04/26/[address]: Hiral Corey MD REQ: [id number] RECD: 04/26/19 STATUS: COMP _ SOURCE: URINE SPDESC: ORDERED: Urine Culture Procedure Result Reported Site Urine Culture Final 04/27/19- 1520 ML No Growth (<1,000 CFU/mL) * ML - Main Lab . END OF REPORT DEPARTMENT OF PATHOLOGY, [address] [place] [address] Shin Schmidt M.D. Director [facility] # [id number] RESULT: No apparent monoclonal protein on serum electrophoresis. Test Performed by: [address] [address] [employer]: Steven Chau M.D. Ph.D.; [facility]# [id number] 5 Therapeutic target for the treatment of diabetes mellitus patients is <7% HBA1C, and in selective patients <6.0%. Please refer to [place] [employer] diabetic care guidelines for further information. 6 Because ethnic data is not always [...] 5 Kidney failure <15 (or dialysis) 7 Because ethnic data is not always [...] 5 Kidney failure <15 (or dialysis) 9 Unable to evaluate urinalysis dipstick results due to interfering color. Unable to evaluate urinalysis dipstick results due to interfering color. 10 SEE RESULT BELOW Name: CARLYLE GIANG : [address]: Leo Morales MD Acct: [id number] Unit: [id number] AGE: 73 Location: ED Re03/29/19 SEX: F Status: DEP ER SPEC: [id number] ORION: 03/29/191223 [facility] DR: Leo Morales MD REQ: [id number] RECD: 03/29/19 STATUS: CB CASTREJON DR: [facility] Brandee Mayfield MD _ SOURCE: URINE SPDESC: ORDERED: Urine Culture Procedure Result Reported Site Urine Culture Final 03/31/19- 0925 ML Organism 1 ESCHERICHIA COLI Stanley Count 25-50,000 (Moderate) CFU/ML 1. ESCHERICHIA COLI [...] . END OF REPORT DEPARTMENT OF PATHOLOGY, [address] [place] [address] Shin Schmidt M.D. Director [facility] # [id number] 11 Because ethnic data is not always readily [...] 15-29 5 Kidney failure <15 (or dialysis) 12 Because ethnic data is not always [...] 5 Kidney failure <15 (or dialysis) 13 Troponin-I testing on Plasma Separator Tubes (PST) has a known false positive rate of 0.20-0.40%. All positive troponins reflex immediately to secondary confirmatory testing. Using the [employer] DxI 800 Access Immunoassay systems, the 99th percentile upper reference limit was demonstrated to be < 0.03 ng/mL. 14 Normal Range 180 to 914 Indeterminate Range 145 to 180 Deficient Range <145 15 Because ethnic data is not always [...] 5 Kidney failure <15 (or dialysis) 16 Standard intensity warfarin therapeutic range: 2.0-3.0 High intensity warfarin therapeutic range: 2.5-3.5 17 Troponin-I testing on Plasma Separator Tubes (PST) has a known false positive rate of 0.20-0.40%. All positive troponins reflex immediately to secondary confirmatory testing. Using the [employer] Access Immunoassay systems, the 99th percentile upper reference limit was demonstrated to be < 0.03 ng/mL. 18 Because ethnic data is not always readily [...] 15-29 5 Kidney failure <15 (or dialysis) 19 [facility] Severe Sepsis and Septic Shock Management Bundle Measure requires all lactic acids initially measuring >2.0 mmol/L be repeated. Procedures Date Code Description Status 03/09/2019 64740 Admin Of Inj Completed 03/08/2019 51879 EKG Tracing & Interpretation Completed 02/07/2019 38742 ECHO Transthorasic Realtime 2D W Doppler & Color Flow Completed Hosp 02/07/2019 43149 EKG, Interpretation Only Completed 02/06/2019 15999 Cath PLMT&NJX L Ventriculog Img S&I Completed 02/06/2019 20012 EKG, Interpretation Only Completed 12/16/2018 14300 EKG Tracing & Interpretation Completed 06/02/2018 [id number] Bone Mineral Density Test Completed 06/02/2018 [id number] Mammogram Completed 07/14/2016 [id number] Mammogram Completed 07/03/2016 [id number] Colonoscopy Completed 06/26/2016 [id number] Colonoscopy Completed 09/06/2013 [id number] Mammogram Completed Medical Devices Description No Information Available Encounters Type Date Location Provider Dx Diagnosis Office Visit 04/28/2019 [facility] Nephrology Hiral Blackwood N17.9 Acute kidney 10:00a MD Madhav failure, unspecified I12.9 Hypertensive chronic kidney disease w stg 1-4/unsp chr kdny N18.3 Chronic kidney disease, stage 3 (moderate) E78.5 Hyperlipidemia, unspecified Office Visit 04/19/2019 9:30a [facility] Nephrology Hiral Blackwood N17.9 Acute kidney MD Madhav failure, unspecified I12.9 Hypertensive chronic kidney disease w stg 1-4/unsp chr kdny N18.3 Chronic kidney disease, stage 3 (moderate) E78.5 Hyperlipidemia, unspecified I10 Essential (primary) hypertension Office Visit 04/17/2019 10:10a [facility] Internal Tenisha Roche0 Essential (primary) Medicine - Bren Gomez hypertension Z23 Encounter for immunization R20.2 Paresthesia of skin Office Visit 04/04/2019 9:50a [facility] Internal Caty Kearns, I10 Essential (primary) Medicine - Bren Gomez hypertension I12.9 Hypertensive chronic kidney disease w stg 1-4/unsp chr kdny Z79.899 [facility] (current) drug therapy K13.0 Diseases of lips Z11.59 Encounter for screening for other viral diseases Z13.1 Encounter for screening for diabetes mellitus Office Visit 03/24/2019 9:30a [facility] Nephrology Hiral Blackwood I12.9 Hypertensive MD Madhav chronic kidney disease w stg 1-4/unsp chr kdny N18.3 Chronic kidney disease, stage 3 (moderate) E78.5 Hyperlipidemia, unspecified I10 Essential (primary) hypertension Office Visit 03/08/2019 1:00p [facility] Kaden López R07.9 Chest pain, Of Maggy Iglesias M.D., unspecified FACC, FASNC I10 Essential (primary) hypertension R94.31 Abnormal electrocardiogram [ECG] [EKG] I25.10 Athscl heart disease of [place] coronary artery w/o ang pctrs Office Visit 02/22/2019 9:40a 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 Internal Garrett Sinclair I10 Essential ( primary) Medicine - Bren Francois M.D. hypertension K59.00 Constipation, unspecified E03.9 Hypothyroidism, unspecified K21.9 Gastro-esophageal reflux disease without esophagitis Office Visit 02/08/2019 9:51a [facility] Leeann Guzman MD R07.89 Other chest pain Assoc,pc Hospitalists Office Visit 02/06/2019 9:41a [facility] Michelle R07.9 Chest pain, Assoc,pc MARIO ALBERTO Sanchez unspecified Hospitalists K59.00 Constipation, unspecified Office Visit 01/16/2019 [facility] Internal Brandee Mayfield, K21.9 Gastro-esophageal 3:00p Medicine - reflux disease without Radhaob esophagitis M81.0 Age-related osteoporosis w/o current pathological fracture M13.0 Polyarthritis, unspecified H81.03 Meniere's disease, bilateral Office Visit 12/16/2018 11:00a [facility] Kaden López I25.119 Athscl heart Of Maggy Iglesias M.D., disease of [facility], FASNC [place] cor art w unsp ang pctrs I73.00 Raynaud's syndrome without gangrene I10 Essential (primary) hypertension R94.31 Abnormal electrocardiogram [ECG] [EKG] Office Visit 11/25/2018 11:00a 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 04/04/2019 [...] Hiral Corey MD (moderate) 03/24/2019 E78.5 Hyperlipidemia, chrisified Hiral Corey MD 03/24/2019 I10 Essential (primary) hypertension Hiral Corey MD 03/09/2019 M81.0 Age-related osteoporosis without Nurse Visit A current pathological fracture 03/08/2019 R07.9 Chest pain, unspecified Kaden Iglesias M.D., [facility], [facility] 03/08/2019 I10 Essential (primary) hypertension Kaden Iglesias M.D., [facility], [facility] 03/08/2019 R94.31 Abnormal electrocardiogram [ECG] [EKG] Kaden Iglesias M.D., [facility], [facility] 03/08/2019 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 Iglesias M.D., [place] coronary artery without angina [facility], [facility] pectoris 02/22/2019 I10 Essential (primary) hypertension Brandee Mayfield MD 02/14/2019 Z48.812 Encounter for surgical aftercare Markos Velasco M.D., [facility], following surgery [place] the [place] [facility] [place] 02/14/2019 I10 Essential (primary) hypertension Markos Velasco M.D., [facility], [facility] 02/14/2019 I44.7 Left bundle-branch block, unspecified Markos Velasco M.D., [facility], [facility] 02/09/2019 I10 Essential (primary) hypertension Garrett [...] M.D. 02/06/2019 R07.9 Chest pain, unspecified Michelle Sanchez, [employer] 02/06/2019 R07.89 Other chest pain Veto Chi MD, [facility], [facility] 02/06/2019 K59.00 Constipation, unspecified Michelle Sanchez, [employer] 01/16/2019 K21.9 Gastro-esophageal reflux disease Brandee Mayfield MD without esophagitis 01/16/2019 M81.0 Age-related osteoporosis without rBandee Mayfield MD current pathological fracture 01/16/2019 M13.0 Polyarthritis, unspecified Brandee Mayfield MD 01/16/2019 H81.03 Meniere's disease, bilateral Brandee Mayfield MD 12/16/2018 I25.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 , [facility], [facility] 12/16/2018 I10 Essential (primary) hypertension Kaden Iglesias M.D., [facility], [facility] 12/16/2018 R94.31 Abnormal electrocardiogram [ECG] [EKG] Kaden Iglesias M.D., [facility], [facility] 11/25/2018 I10 Essential (primary) hypertension Brandee Mayfield MD Plan of Treatment Future Appointment(s):06/09/2019 9:40 am - Hiral Corey MD at [facility] Qgekkriexk12/28/2020 10:15 am - Claudia Slade MD at [facility] Xdwbuxdzhul54/03/2020 10:30 am - Michael Matos M.D. at [facility]2019 9:10 am - Caty Kearns M.D. at [facility] Internal Medicine - Ccmob06/29/2019 10:00 am - Hiral Corey MD at [facility] Nephrology Functional Status Description No Information Available Mental Status Description No Information Available Referrals Refer to Dr Reason for Referral Status Appt Date Claudia Slade MD Sent 06/27/[address] [place] [phone] Rob Lovett MD Sent 08/01/2019 [address] [place] [address] [place] [address] [phone] Hiral Corey MD pls evaluate pt with recent decline in GFR Sent 03/[address] [place] [id number] [phone]
[2019-06-22 00:53] VITALS: BP 104/56
== END 2019-06-22 01:11 | disposition home or self-care (01) ==
LOC: ED 22:39
DX: S93.02XA Subluxation of left ankle joint, initial encounter (principal); S82.832A Other fracture of upper and lower end of left fibula, initial encounter for closed fracture; W18.30XA Fall on same level, unspecified, initial encounter; Y93.89 Activity, other specified; Y92.009 Unspecified place in unspecified non-institutional (private) residence as the place of occurrence of the external cause; R42 Dizziness and giddiness; R19.7 Diarrhea, unspecified; R07.89 Other chest pain; R06.02 Shortness of breath; I10 Essential (primary) hypertension; M79.7 Fibromyalgia; F41.9 Anxiety disorder, unspecified; F32.9 Major depressive disorder, single episode, unspecified; Z88.1 Allergy status to other antibiotic agents; Z88.2 Allergy status to sulfonamides; Z88.8 Allergy status to other drugs, medicaments and biological substances
CPT/HCPCS: 99283; A9270-GY

== ENCOUNTER 2019-06-27 21:16 | Emergency (ER) | payer OTHER ==
[2019-06-27] MEDS ORDERED: oxyCODONE TAB* 5 MG TAB PO ONE (22:06)
--- NOTE | 2019-06-27 22:06 | ED ---
Lower Extremity - HPI Summary HPI Summary: Patient with history of displaced lateral malleolus fracture of left leg on 06/[address] Ferreira complains of left ankle pain underneath cast. Patient states she ran out of her pain medications 2 days ago. Denies new trauma. Also states some chest pain today, however states she commonly gets chest pain with anxiety, and was having a panic attack about her pain in left leg. Denies SOB, fever, cough, sore throat, and/V/V abdominal pain, change in urine, change in BM. Patient due for surgery with Dr. Ferreira 07/08/19. Medical history CAD, fibromyalgia, GERD, HTN. - History of Current Complaint Chief Complaint: EDExtremityLower Stated Complaint: LEG/CHEST PAIN PER EMS Hx Obtained From: Patient, Family/Integration Software Developer Onset/Duration: Weeks Severity Initially: Severe Severity Currently: Severe Pain Intensity: 9 Pain Scale Used: 0-10 Numeric Timing: Constant Location: Is Discrete @ Character Of Pain: Dull, Aching, Throbbing Alleviating Factor(s): Rest, Elevation Able to Bear Weight: No - Allergies/Home Medications Allergies/Adverse Reactions: Allergies Allergy/AdvReac Type Severity Reaction Status Date / Time atenolol Allergy Wheezing Verified 06/27/19 09:01 captopril Allergy Coughing Verified 06/27/19 09:01 ciprofloxacin Allergy tendonitis Verified 06/27/19 09:01 clonidine Allergy Dizziness/i Verified 06/27/19 09:01 nsomnia erythromycin base Allergy GI Verified 06/27/19 09:01 Upset/hives iron Allergy SEVERE GI Verified 06/27/19 09:01 UPSET nifedipine Allergy Unknown Verified 06/27/19 09:01 Reaction Details nisoldipine Allergy Agitation Verified 06/27/19 09:01 Sulfa (Sulfonamide Allergy Hives Verified 06/27/19 09:01 Antibiotics) PMH/Surg Hx/FS Hx/Imm Hx Endocrine/Hematology History: Denies: Hx Diabetes Cardiovascular History: Reports: Hx Angioplasty, Hx Coronary Artery Disease, Hx Hypertension Denies: Hx Pacemaker/ICD Respiratory History: Reports: Hx Asthma - SEASONAL, Hx Sleep Apnea - DOES NOT USE HER C-PAP GI History: Reports: Hx Gastroesophageal Reflux Disease, Hx Irritable Bowel, Other GI Disorders - GASTRIC BYPASS STEVAN EN Y History: Reports: Hx Renal Disease, Other Problems/Disorders - UTI Denies: Hx Dialysis Musculoskeletal History: Reports: Hx Arthritis - NECK, SHOULDERS, Hx Fibromyalgia, Other Musculoskeletal History - FX 2 METATARSALS RIGHT FOOT 2010 Denies: Hx Osteoporosis Sensory History: Reports: Hx Cataracts - LENS IMPLANTS 2 YRS AGO, Hx Contacts or Glasses Denies: Hx Hearing Aid Opthamlomology History: Reports: Hx Cataracts - LENS IMPLANTS 2 YRS AGO, Hx Contacts or Glasses Neurological History: Reports: Hx Migraine, Other Neuro Impairments/Disorders - FIBROMYALGIA Psychiatric History: Reports: Hx Anxiety - ON MEDICATION FOR, Hx Depression - ON MEDICATION FOR Denies: Hx Panic Disorder - Cancer History Hx Chemotherapy: No Hx Radiation Therapy: No - Surgical History Surgery Procedure, Year, and Place: HERNIA REPAIR 06/18/18, BILATERAL CATARACTS, GASTRIC BYPASS 08/2010, INTERNAL HERNIA REPAIR 09/2011, DILATED STRICTURE &10/2011 , HEART CATH 05/2007, HYSTERECTOMY 10/1980, RT OVARY REMOVED 05/1984 CHOLECYSTECTOMY 12/1993, AND CYSTOCELE REPAIR 08/1994 Hx Anesthesia Reactions: No - Immunization History Date of Tetanus Vaccine: UTD Date of Influenza Vaccine: 02/2017 Immunizations Up to Date: Yes Infectious Disease History: No Infectious Disease History: Denies: Traveled Outside the [place] in Last 30 Days - Family History Known Family History: Positive: Cardiac Disease, Hypertension, Diabetes - Social History Alcohol Use: None Hx Substance Use: No Substance Use Type: Reports: None Hx Tobacco Use: No Smoking Status (MU): Never Smoked Tobacco Have You Smoked in the Last Year: No Review of Systems Constitutional: Negative Eyes: Negative ENT: Negative Positive: Chest Pain Respiratory: Negative Gastrointestinal: Negative Genitourinary: Negative Musculoskeletal: Other Skin: Negative Neurological: Negative Psychological: Normal All Other Systems Reviewed And Are Negative: Yes Physical Exam - Summary Physical Exam Summary: Toes and foot beyond distal cast warm. No swelling distally. Able to insert finger between the foot and cast. No swelling or erythema to calf proximal to the cast. Calf soft nontender. Able to insert finger between casting calf. Chest pain not reproducible. Triage Information Reviewed: Yes Vital Signs On Initial Exam: Initial Vitals Temp Pulse Resp BP Pulse Ox 97.7 F 80 19 166/71 96 06/27/19 21:25 06/27/19 21:25 06/27/19 21:25 06/27/19 21:25 06/27/19 21:25 Vital Signs Reviewed: Yes Appearance: Positive: Well-Appearing Skin: Positive: Warm Head/Face: Positive: Normal Head/Face Inspection Eyes: Positive: Normal Neck: Positive: Supple Respiratory/Lung Sounds: Positive: Clear to Auscultation Cardiovascular: Positive: Normal Abdomen Description: Positive: Nontender Musculoskeletal: Positive: Normal Neurological: Positive: Normal Psychiatric: Positive: Normal AVPU Assessment: Alert - Ry Coma Scale Best Eye Response: 4 - Spontaneous Best Motor Response: 6 - Obeys Commands Best Verbal Response: 5 - Oriented Coma Scale Total: 15 Procedures - Sedation Patient Received Moderate/Deep Sedation with Procedure: No Diagnostics - Vital Signs Vital Signs Temp Pulse Resp BP Pulse Ox 06/27/19 21:25 97.7 F 80 19 166/71 96 - Laboratory Result Diagrams: 06/28/19 00:32 06/28/19 00:32 Lab Statement: Any lab studies that have been ordered have been reviewed, and results considered in the medical decision making process. Lower Extremity Course/Dx - Course Course Of Treatment: Patient with history of displaced lateral malleolus fracture of left leg on 06/21/[address] Ferreira complains of left ankle pain underneath cast. Patient states she ran out of her pain medications 2 days ago. Denies new trauma. Also states some chest pain today, however states she commonly gets chest pain with anxiety, and was having a panic attack about her pain in left leg. Denies SOB, fever, cough, sore throat, and/V/V abdominal pain, change in urine, change in BM. Patient due for surgery with Dr. Ferreira 07/08/19. Medical history CAD, fibromyalgia, GERD, HTN. Patient left lower extremity symptoms and chest pain symptoms completely resolved with oxycodone 5 mg. Vital signs within normal limits. Hgb 10.2, patient baseline. Potassium 3.1. Potassium 40MEQ by mouth administered. D-dimer 231. Creatinine 2.24. Serial troponins negative. EKG sinus rhythm, heart rate of 77 with new Left bundle branch block compared to prior EKGs. Patient creatinine 2.24, unable to perform CTA to rule out possible PE. PE risk factors are recent trauma, chest pain. Discussed patient with cardiology who recommended admission for observation. Patient admitted to hospitalist. Dr Gonzalez recommends admission for obs with repeat EKG, serial troponins, possibe V/Q scan and echo in am. - Diagnoses Provider Diagnoses: Ankle pain, left, Ankle fracture, lateral malleolus, closed, New onset left bundle branch block (LBBB), Chest pain Discharge ED - Sign-Out/Discharge Documenting (check all that apply): Sign-Out Patient Signing out patient TO: Triny Jackson - Discharge Plan Condition: Stable Disposition: HOME Prescriptions: Cyclobenzaprine TAB* [Flexeril 10 MG TAB*] 10 mg PO TID PRN 7 Days #21 tab PRN Reason: Spasms Oxycodone HCl 5 mg PO Q6H 2 Days #8 tablet MDD 4 tabs Patient Education Materials: Chest Pain (ED), Ankle Fracture (ED) Print Language: GERMAN Referrals: Flor Licona MD [Medical Doctor] - Caty Kearns MD [Primary Care Provider] - - Billing Disposition and Condition Condition: STABLE Disposition: Home
--- OUTSIDE RECORDS SUMMARY | 2019-06-27 22:26 | XMS REPORT | Continuity of Care Document ---
:1945 External Reference #:[id number] Author Name Jose Deras MD (transmitted by agent of provider Tiffani Hong) Address [address] [place] [address] Care Team Providers Name Role Phone Daren Root MD - Internal Care Team Information Machine [facility] Dallin Stern MD - Occupational Care Team Information Machine [facility] Brandee Mayfield M.D. - Family Medicine Care Team Information Machine [facility] Problems Active Problems Provider Date Occult blood in stools Daren Root M.D.,FACP Onset: 04/13/2017 Coronary arteriosclerosis Kaden Iglesias M.D., [facility], [facility] Onset: 2014 Iron deficiency anemia Daren Root M.D.,FACP Onset: 04/01/2017 Essential hypertension Daren Root M.D.,FACP Onset: 04/01/2017 Shane-en-Y gastrojejunostomy Daren Root M.D.,FACP Onset: 04/23/2017 Note: sees Dr. Weber Major depressive disorder Daren Root M.D.,FACP Onset: 04/23/2017 Fibromyalgia Daren Root M.D.,[place] Onset: 04/23/2017 Atherosclerotic heart disease of Kaden Iglesias M.D., [facility], Onset: 2018 council coronary artery with [facility]AS[facility] unspecified angina pectoris Encounter for planned postprocedural Markos Velasco M.D., [facility], [facility] Onset: wound closure Left bundle branch block Markos Velasco M.D., [facility], [facility] Onset: 02/14/2019 Chest pain Kaden Iglesias M.D., [facility], Onset: 03/08/2019 [facility] Raynaud's phenomenon Caty Kearns M.D. Onset: 05/08/2019 Social History Type Date Description Comments Sex Unknown Tobacco Use Start: Unknown Never Smoked Cigarettes Smoking Status Reviewed: 06/22/19 Never Smoked Cigarettes ETOH Use Denies alcohol [...] Medications SIG Qnty Indications Ordering Date Provider Knee Scooter Disp 1 knee S82.62xA Jose F 06/22/2019 scooter Ht 65 Wt MD [place] 145 Chlorthalidone 1 tablet PO daily 30tabs N18.4 Mohammad A. 06/09/2019 25mg in Am MD Madhav Tablets Metoprolol Succinate 1 tab by mouth Mohammad A. 05/30/2019 ER every day at MD Madhav 50mg Tablets ER 24HR bedtime Hydralazine HCL 1/2 tab by mouth 90tabs Mohammad A. 05/11/2019 50mg three times daily MD Madhav Tablets Duloxetine HCL Take 1 Capsule 90caps Linoofiute Jamil, 05/09/2019 60mg Caps Daily FANY [place] Spironolactone 1 by mouth every 30tabs [...] 16units Linoofiute Jamil, 05/07/2018 each nostril one MANAGER CUSTOMER 50mcg/Act Suspension time a day for 1 week, then 1 spray thereafter Phenazopyridine HCL 2 tabs po tid as 24tabs Linoofiute Jamil, 01/04/2018 100mg needed MANAGER CUSTOMER Tablets Blood Pressure Cuff use daily as 1units I10 Sadi Jamil, 09/29/2017 [facility] instructed to MANAGER CUSTOMER check bp Gabapentin 2 tab at night 180tabs Brandee Mayfield MD 09/15/2017 600mg Tablets Simvastatin Take 1 Tablet 90tabs Cyndi 08/25/2013 20mg Tablets Daily Jason Márquez Aspir-81 1 by mouth every Kaden Dawn 08/25/[address] reta Iglesias M.D., [facility], [place] Amitriptyline HCL 1 by mouth every 90tabs M79.7 Zsofia Omero, 50mg night at bedtime MANAGER CUSTOMER Tablets Vitamin B-12 1 by mouth every 30tabs Unknown 500mcg day( when Tablets Sub remembers) Multivitamin 1 by mouth every Unknown Tablets day (when she remembers) Citracal 2-4 a day PO(when Unknown Tablets remembers) Carafate one tablet on Unknown 1gm Tablets empty stomach one hour before meals daily. (3xdaily) Cephalexin [place], 500mg Capsules Leo Dickson MD History Medications Minoxidil take 1 tablet by 90tabs N18.4 Mohammad A. 06/09/2019 - 10mg mouth daily at MD Madhav 06/09/2019 Tablets bedtime Metoprolol Succinate 1 tab by mouth 90tabs Mohammad A. 05/15/2019 - ER daily at bedtime MD Madhav 05/30/2019 25mg Tablets ER 24HR Hydralazine HCL 1 tab by mouth 180tabs Mohammad A. 05/03/2019 - 25mg three times a MD Madhav 05/11/2019 Tablets day Losartan Potassium one pill a day 90tabs I10 Markos Velasco, 02/14/2019 - Jason, [facility], [facility] 02/22/2019 50mg Tablets Medications Administered [...] CPT Code Status Date Vaccine Lot # [id number] Given 04/17/2019 Pneumococcal Conjugate Vaccine 13 Valent For [id number] Intramuscular Use 46932 Given 02/15/2019 Influenza Virus Vaccine, Quadrivalent, Split, Im Use 6-35mo 72585 Given 02/06/2017 Pneumonia Vaccine 00362 Given 02/06/2017 Influenza Virus Vaccine, Quadrivalent, Split, Preservative Free Vital Signs Date Vital Result Comment 06/22/2019 2:22pm Height 65 inches 5'5" Weight 145.00 lb Heart Rate 78 /min BP Systolic 100 mmHg BP Diastolic 58 mmHg Respiratory Rate 18 /min Body Temperature 98.0 F Pain Level 9 BMI (Body Mass Index) 24.1 kg/m2 06/09/2019 9:36am Height 65 inches 5'5" Weight 160.00 lb Heart Rate 76 /min BP Systolic Sitting 172 mmHg left arm reg cuff BP Diastolic Sitting 71 mmHg left arm reg cuff O2 % BldC Oximetry 98 % room air BMI (Body Mass Index) 26.6 kg/m2 Results Test Acquired Date Facility Test Result H/L Range Note Iron & Iron Binding 06/19/2019 Iron 87 g/dL Normal 50-[address] [place] [address] [phone] Unsaturated Iron Binding < 502 g/dL Total Iron Binding Capacity 517 g/dL High 250-450 Transferrin 369 mg/dL High 203-362 % Iron Saturation 17 % Normal 15-55 Laboratory test 06/19/2019 Ferritin 5.7 ng/mL Low 11-[address] [place] [address] [phone] Albumin 4.5 g/dL Normal 3.2-5.2 Neph Routine 06/19/2019 Total Protein Random 50 mg/ dL [address] [place] [address] [phone] Creatinine Random Urine 141.89 mg/dL CBC Auto 06/19/2019 White Blood 6.3 10^3/uL Normal 3.5-10.[address] [place] [address] [phone] Red Blood Count 3.75 10^6/uL Normal 3.70-4.87 Hemoglobin 11.2 g/dL Low 12.0-16.0 Hematocrit 33 % Low 35-47 Mean Corpuscular Volume 89 fL Normal 80-97 Mean Corpuscular Hemoglobin 30 pg Normal 27-31 Mean Corpuscular HGB Conc 34 g/dL Normal 31-36 Red Cell Distribution Width 15 % Normal 10-15 Platelet Count 334 10^3/uL Normal 150-450 Mean Platelet Volume 8.1 fL Normal 7.4-10.4 Abs Neutrophils 5.0 10^3/uL Normal 1.5-7.7 Abs Lymphocytes 0.5 10^3/uL Low 1.0-4.8 Abs Monocytes 0.7 10^3/uL Normal 0-0.8 Abs Eosinophils 0.0 10^3/uL Normal 0-0.6 Abs Basophils 0.0 10^3/uL Normal 0-0.2 Abs Nucleated RBC 0.0 10^3/uL Granulocyte % 79.6 % Lymphocyte % 8.1 % Monocyte % 11.4 % Eosinophil % 0.6 % Basophil % 0.3 % Nucleated Red Blood Cells % 0.0 Basic Metabolic 06/19/2019 Sodium 137 mmol/L Normal 135-145 Panel [address] [place] [address] [phone] Potassium 3.3 mmol/L Low 3.5-5.0 Chloride 103 mmol/L Normal 101-111 Co2 Carbon Dioxide 26 mmol/L Normal 22-32 Anion Gap 8 mmol/L Normal 2-11 Glucose 109 mg/dL High 70-100 Blood Urea Nitrogen 31 mg/dL High 6-24 Creatinine 2.59 mg/dL High 0.51-0.95 BUN/Creatinine Ratio 12.0 Normal 8-20 Calcium 8.4 mg/dL Low 8.6-10.3 Egfr Non- 18.1 >60 Egfr 21.9 >60 1 Urinalysis Profile 06/19/2019 Urine Color Yellow [address] [place] [address] [phone] Urine Appearance Cloudy Urine Specific [place] 1.015 Normal 1.010-1.030 Urine pH 5.0 Normal 5-9 Urine Urobilinogen Negative Negative Urine Ketones Negative Negative Urine Protein Negative Negative Urine Leukocytes Trace Abnormal Negative Urine Blood Negative Negative * * Abnormal Negative 2 Urine Nitrite Negative Negative Urine Bilirubin Negative Negative Urine Glucose Negative Negative Urine White Blood Cell Trace(0-5/hpf) Absent Urine Red Blood Cell Absent Absent Urine Bacteria Absent Absent Urine Squamous Epithelial Cell Present Abnormal Absent [place]/Lambda Free 06/19/2019 [place] Free 7.05 mg/dL Abnormal [address] [place] [address] [phone] Lambda Free Light Chain 3.03 mg/dL Abnormal 4 [place]/Lambda Free Light Chain 2.33 Abnormal 5 Urine Culture And 06/19/2019 Urine SEE RESULT [address] [place] [place] [address] [phone] Laboratory test 06/07/2019 Albumin 4.5 g/dL Normal 3.2-[address]2 [place] [address] [phone] Calcium 9.8 mg/dL Normal 8.6-10.3 Urinalysis Profile 06/07/2019 Urine Color Yellow [address] [place] [address] [phone] Urine Appearance Clear Urine Specific [place] 1.009 Low 1.010-1.030 Urine pH 5.0 Normal 5-9 Urine Urobilinogen Negative Negative Urine Ketones Negative Negative Urine Protein Negative Negative Urine Leukocytes Negative Negative Urine Blood Negative Negative Urine Nitrite Negative Negative Urine Bilirubin Negative Negative Urine Glucose Negative Negative Basic Metabolic 06/07/2019 Sodium 139 mmol/L Normal 135-[address] [place] [address] [phone] Potassium 4.3 mmol/L Normal 3.5-5.0 Chloride 105 mmol/L Normal 101-111 Co2 Carbon Dioxide 27 mmol/L Normal 22-32 Anion Gap 7 mmol/L Normal 2-11 Glucose 105 mg/dL High 70-100 Blood Urea Nitrogen 31 mg/dL High 6-24 Creatinine 1.88 mg/dL High 0.51-0.95 BUN/Creatinine Ratio 16.5 Normal 8-20 Egfr Non- 26.2 >60 Egfr 31.7 >60 7 CBC Auto 06/07/2019 White Blood 4.5 10^3/uL Normal 3.5-10.[address] [place] [address] [phone] Red Blood Count 3.48 10^6/uL Low 3.70-4.87 [...] % Nucleated Red Blood Cells % 0.0 Neph Routine 06/07/2019 Total Protein Random 16 mg/ dL [address] [place] [address] [phone] Creatinine Random Urine 57.66 mg/dL Neph Routine 04/26/2019 Total Protein Random 70 mg/ dL [address] [place] [address] [phone] Creatinine Random Urine 250.86 mg/dL CBC Auto 04/26/2019 White Blood 4.2 10^3/uL Normal 3.5-10.[address] [place] [address] [phone] Red Blood Count 3.82 10^6/uL Normal 3.70-4.87 [...] Blood Cells % 0.0 Basic Metabolic 04/26/2019 Sodium 142 mmol/L Normal 135-[address] [place] [address] [phone] Potassium 3.8 mmol/L Normal 3.5-5.0 Chloride 109 mmol/L Normal 101-111 Co2 Carbon Dioxide 25 mmol/L Normal 22-32 Anion Gap 8 mmol/L Normal 2-11 Glucose 120 mg/dL High 70-100 Blood Urea Nitrogen 21 mg/dL Normal 6-24 Creatinine 1.71 mg/dL High 0.51-0.95 BUN/Creatinine Ratio 12.3 Normal 8-20 Calcium 9.4 mg/dL Normal 8.6-10.3 Egfr Non- 29.3 >60 Egfr 35.5 >60 8 Urinalysis Profile 04/26/2019 Urine Color Yellow [address] [place] [address] [phone] Urine Appearance Clear Urine Specific [place] 1.026 Normal 1.010-1.030 Urine pH 5.0 Normal 5-9 Urine Urobilinogen Negative Negative Urine Ketones Negative Negative Urine Protein 1+(30 mg/dL) Abnormal Negative Urine Leukocytes Trace Abnormal Negative Urine Blood Negative Negative * * Abnormal Negative 9 Urine Nitrite Negative Negative Urine Bilirubin Negative Negative Urine Glucose Negative Negative Urine White Blood Cell Trace(0-5/hpf) Absent Urine Red Blood Cell Trace(0-2/hpf) Absent Urine Bacteria Absent Absent Urine Squamous Epithelial Cell Present Abnormal Absent Urine Calcium Oxalate Cryst Present Abnormal Absent Urine Culture And 04/26/2019 Urine SEE RESULT [address] [place] [place] [address] [phone] Protein 04/18/2019 Total 6.9 g/dL 6.3 - Electrophoresis [address] Protein(Pep) 7.9 [place] [address] [phone] Albumin 3.8 g/dL 3.4-4.7 Alpha-1 Globulin 0.2 g/dL 0.1-0.3 Alpha-2 Globulin 1.0 g/dL 0.6-1.0 Beta Globulin 1.0 g/dL 0.7-1.2 Gamma Globulin 0.9 g/dL 0.6-1.6 Albumin/Globulin Ratio 1.22 Impression See Comment 11 Hepatitis C Antibody 04/18/2019 HCV Index 0.02 s/c [address] [place] [address] [phone] Hepatitis C Antibody Negative Negative Laboratory 04/18/2019 Hemoglobin 6.1 % High 4.0- 5.6 12 test finding [address] A1c ([place] [address] HGB) [phone] HIV 1&2 p24 04/18/2019 HIV 4th Nonreactive Nonreactive Screen [address] [place] [address] [phone] Laboratory 04/18/2019 TSH (Thyroid 3.81 mcIU/mL Normal 0.34-5.60 test finding [address] Stim [place]orm) [place] [address] [phone] Basic 04/18/2019 Sodium 137 mmol/L Normal 135-[address] [place] [address] [phone] Potassium 4.8 mmol/L Normal 3.5-5.0 Chloride 106 mmol/L Normal 101-111 Co2 Carbon Dioxide 24 mmol/L Normal 22-32 Anion Gap 7 mmol/L Normal 2-11 Glucose 112 mg/dL High 70-100 Blood Urea Nitrogen 28 mg/dL High 6-24 Creatinine 1.93 mg/dL High 0.51-0.95 BUN/Creatinine Ratio 14.5 Normal 8-20 Calcium 9.0 mg/dL Normal 8.6-10.3 Egfr Non- 25.5 >60 Egfr 30.9 >60 13 Laboratory test 04/18/2019 Creatinine Random 89.12 mg /dL finding [address] [place] [address] [phone] Total Protein Random Urine 25 mg/dL CBC Auto 04/18/2019 White Blood 4.5 10^3/uL Normal 3.5-10.[address] [place] [address] [phone] Red Blood Count 3.90 10^6/uL Normal 3.70-4.87 [...] Blood Cells % 0.0 Urinalysis Profile 04/18/2019 Urine Color Yellow [address] [place] [address] [phone] Urine Appearance Clear Urine Specific [place] 1.013 Normal 1.010-1.030 Urine pH 5.0 Normal 5-9 Urine Urobilinogen Negative Negative Urine Ketones Negative Negative Urine Protein Negative Negative Urine Leukocytes Negative Negative Urine Blood Negative Negative Urine Nitrite Negative Negative Urine Bilirubin Negative Negative Urine Glucose Negative Negative Neph Routine 04/10/2019 Total Protein Random 15 mg/ dL [address] [facility] [place] [address] [phone] Creatinine Random Urine 61.39 mg/dL Urinalysis Profile 04/10/2019 Urine Color Yellow [address] [place] [address] [phone] Urine Appearance Clear Urine Specific [place] 1.011 Normal 1.010-1.030 Urine pH 5.0 Normal 5-9 Urine Urobilinogen Negative Negative Urine Ketones Negative Negative Urine Protein Negative Negative Urine Leukocytes Negative Negative Urine Blood Negative Negative Urine Nitrite Negative Negative Urine Bilirubin Negative Negative Urine Glucose Negative Negative Neph Routine 04/08/2019 Urine Random Total 52 mg/dL [address] [facility] Protein [place], [place] [address] [phone] Urine Random Creatinine 190.93 mg/dL CBC Auto 04/08/2019 White Blood 3.6 10^3/uL Normal 3.5-10.[address] [place] [address] [phone] Red Blood Count 3.95 10^6/uL Normal 3.70-4.87 [...] % Nucleated Red Blood Cells % 0.2 Basic Metabolic 04/08/2019 Sodium 138 mmol/L Normal 135-145 Panel [address] [place] [address] [phone] Potassium 4.4 mmol/L Normal 3.5-5.0 Chloride 102 mmol/L Normal 101-111 Co2 Carbon Dioxide 29 mmol/L Normal 22-32 Anion Gap 7 mmol/L Normal 2-11 Glucose 105 mg/dL High 70-100 Blood Urea Nitrogen 30 mg/dL High 6-24 Creatinine 1.74 mg/dL High 0.51-0.95 BUN/Creatinine Ratio 17.2 Normal 8-20 Calcium 9.0 mg/dL Normal 8.6-10.3 Egfr Non- 28.8 >60 Egfr 34.8 >60 14 Hepatitis C Antibody 04/08/2019 HCV Index 0.01 s/c [address] [place] [address] [phone] Hepatitis C Antibody Negative Negative Urine Culture And 03/29/2019 Urine Culture SEE RESULT [address] [place] [address] [phone] Urinalysis Profile 03/29/2019 Urine Color Moody [address] [place] [address] [phone] Urine Appearance Cloudy Urine White Blood Cell 3+(>20/hpf) Abnormal Absent Urine Red Blood Cell 3+(>10/hpf) Abnormal Absent Urine Bacteria Absent Absent Basic Metabolic 03/29/2019 Sodium 140 mmol/L Normal 135-[address] [place] [address] [phone] Potassium 3.9 mmol/L Normal 3.5-5.0 Chloride 106 mmol/L Normal 101-111 Co2 Carbon Dioxide 27 mmol/L Normal 22-32 Anion Gap 7 mmol/L Normal 2-11 Glucose 81 mg/dL Normal 70-100 Blood Urea Nitrogen 24 mg/dL Normal 6-24 Creatinine 1.49 mg/dL High 0.51-0.95 BUN/Creatinine Ratio 16.1 Normal 8-20 Calcium 9.5 mg/dL Normal 8.6-10.3 Egfr Non- 34.4 >60 Egfr 41.6 >60 17 CBC Auto 03/29/2019 White Blood 9.4 10^3/uL Normal 3.5-10.[address] [place] [address] [phone] Red Blood Count 4.02 10^6/uL Normal 3.70-4.87 [...] Red Blood Cells % 0.0 Basic Metabolic 02/22/2019 Sodium 140 mmol/L Normal 135-145 Panel [address] [place] [address] [phone] Potassium 4.1 mmol/L Normal 3.5-5.0 Chloride 104 mmol/L Normal 101-111 Co2 Carbon Dioxide 31 mmol/L Normal 22-32 Anion Gap 5 mmol/L Normal 2-11 Glucose 86 mg/dL Normal 70-100 Blood Urea Nitrogen 23 mg/dL Normal 6-24 Creatinine 1.44 mg/dL High 0.51-0.95 BUN/Creatinine Ratio 16.0 Normal 8-20 Calcium 9.5 mg/dL Normal 8.6-10.3 Egfr Non- 35.8 >60 Egfr 43.3 >60 18 Basic Metabolic 02/10/2019 Sodium 139 mmol/L Normal 135-145 Panel [address] [place] [address] [phone] Potassium 4.0 mmol/L Normal 3.5-5.0 Chloride 101 mmol/L Normal 101-111 Co2 Carbon Dioxide 35 mmol/L High 22-32 Anion Gap 3 mmol/L Normal 2-11 Glucose 93 mg/dL Normal 70-100 Blood Urea Nitrogen 20 mg/dL Normal 6-24 Creatinine 1.35 mg/dL High 0.51-0.95 BUN/Creatinine Ratio 14.8 Normal 8-20 Calcium 9.6 mg/dL Normal 8.6-10.3 Egfr Non- 38.5 >60 Egfr 46.6 >60 19 Laboratory test 02/10/2019 Magnesium 2.1 mg/dL Normal 1.9-2.7 finding [address] [place] [address] [phone] Free T4 (Free Thyroxine) 0.95 ng/dL Normal 0.61-1.12 Laboratory 02/06/2019 Troponin-I 0.01 <0.[address] (TnI) ng/[place] [address] [phone] CBC Auto Diff 02/06/2019 White Blood 3.5 Normal 3.5 -10.[address] Count 10^3/[place] [address] [phone] Red Blood Count 4.57 10^6/uL Normal 3.70-4.87 [...] Red Blood Cells % 0.0 Inr/Protime 02/06/2019 Inr 0.98 Normal 0.82-1.[address] [place] [address] [phone] Comp Metabolic 02/06/2019 Sodium 139 mmol/L Normal 135-[address] [place] [address] [phone] Potassium 3.7 mmol/L Normal 3.5-5.0 Chloride 101 [...] Egfr Non- 37.9 >60 Egfr 45.9 >60 22 Laboratory test 02/06/2019 Troponin-I (TnI) 0.00 ng/ mL <0.04 [address] [place] [address] [phone] Magnesium 2.4 mg/dL Normal 1.9-2.7 TSH (Thyroid Stim Horm) 6.64 mcIU/mL High 0.34-5.60 Vitamin B12 405 pg/mL Normal 180-914 24 CBC Auto 02/02/2019 White Blood 4.0 10^3/uL Normal 3.5-10.[address] [place] [address] [phone] Red Blood Count 4.24 10^6/uL Normal 3.70-4.87 [...] Blood Cells % 0.1 Comp Metabolic 02/02/2019 Sodium 139 mmol/L Normal 135-145 Panel [address] [place] [address] [phone] Potassium 3.4 mmol/L Low 3.5-5.0 Chloride 103 [...] Egfr Non- 38.5 >60 Egfr 46.6 >60 25 Laboratory test 02/02/2019 Lipase 17 U/L Normal 11.0-82.0 finding [address] [place] [address] [phone] C Reactive Protein < 1.00 mg/L Normal <8.01 Lactic Acid 0.7 mmol/L Normal 0.5-2.0 26 Urinalysis Profile 02/02/2019 Urine Color Colorless [address] [place] [address] [phone] Urine Appearance Clear Urine Specific [place] 1.003 Low 1.010-1.030 Urine pH 7.0 Normal [...] may interfere with detection of blood. 3 REFERENCE VALUE 0.3300-1.94 4 REFERENCE VALUE 0.5700-2.63 5 Elevated free light chain ratios between 1.66 and 3.00 may occur due to polyclonal hypergammaglobulinemia or impaired renal clearance. An isolated increased free light chain ratio in this range should be interpreted with caution, and clinical correlation is recommended. REFERENCE VALUE 0.2600-1.65 Test Performed by: [facility] [address] [place] [address] Oil Heat Technician: Steven Chau M.D. Ph.D.; CLIA# [id number] 6 SEE RESULT BELOW Name: CARLYLE GIANG : [address]: Hiral Corey MD Acct: [id number] Unit: [id number] AGE: 74 Location: LAB Re06/19/19 SEX: F Status: REG REF SPEC: [id number] ORION: 06/19/19-[address]: Hiral Corey MD REQ: [id number] RECD: 06/19/19 STATUS: COMP _ SOURCE: URINE SPDESC: ORDERED: Urine Culture Procedure Result Reported Site Urine Culture Final 06/21/19- 1027 ML Organism 1 ESCHERICHIA COLI Leon Count 1-10,000 (Few) CFU/ML Organism 2 NORMAL ADRI Leon Count 10-25,000 (Moderate) CFU/ML 1. ESCHERICHIA COLI M.I.C. RX --------- ------ Ampicillin 16 I Cefazolin <=4 S Cefepime <=1 S Ceftriaxone <=1 S Ciprofloxacin <=0.25 S Gentamicin <=1 S Levofloxacin <=0.12 S Meropenem <=0.25 S Nitrofurantoin 32 S Tetracycline <=1 S Pipercillin/Tazobactam <=4 S Trimethoprim/Sulfamethoxazole <=20 S Amoxicillin/Clavulanic Acid 4 S Aztreonam <=1 S CONTINUED ON NEXT PAGE DEPARTMENT OF PATHOLOGY, [facility] [employer] [place], [place] [address] Shin Schmidt M.D. Director [facility] # [id number] Specimen: [id number] Collected: 06/19/19 Received: 06/19/19 (Continued) Procedure Result Reported Site Urine Culture Final (continued) Contact the Microbiology Department for any additional antibiotic reporting. * ML - Main Lab . END OF REPORT DEPARTMENT OF PATHOLOGY, [facility] [address] [place], [place] [address] Shin Schmidt M.D. Director [facility] # [id number] 7 Because ethnic data is not always [...] 5 Kidney failure <15 (or dialysis) 9 *Ascorbic acid is present which may interfere with detection of blood. 10 SEE RESULT BELOW Name: CARLYLE GIANG : [address]: Hiral Corey MD Acct: [id number] Unit: [id number] AGE: 73 Location: LAB Re04/26/19 SEX: F Status: REG REF SPEC: [id number] ORION: 04/26/[address]: Hiral Corey MD REQ: [id number] RECD: 04/26/19 STATUS: COMP _ SOURCE: URINE SPDESC: ORDERED: Urine Culture Procedure Result Reported Site Urine Culture Final 04/27/19- 1520 ML No Growth (<1,000 CFU/mL) * ML - Main Lab . END OF REPORT DEPARTMENT OF PATHOLOGY, [address] [place] [address] Shin Schmidt M.D. Director [facility] # [id number] 11 RESULT: No apparent monoclonal protein on serum electrophoresis. Test Performed by: [facility] [place] - [address] [address] Oil Heat Technician: Steven Chau M.D. Ph.D.; CLIA# [id number] 12 Therapeutic target for the treatment of diabetes mellitus patients is <7% HBA1C, and in selective patients <6.0%. Please refer to [place] [employer] diabetic care guidelines for further information. 13 Because ethnic data is not always [...] 5 Kidney failure <15 (or dialysis) 14 Because ethnic data is not always readily [...] 15-29 5 Kidney failure <15 (or dialysis) 15 SEE RESULT BELOW Name: CARLYLE GIANG : [address]: Leo Morales MD Acct: [id number] Unit: [id number] AGE: 73 Location: ED Re03/29/19 SEX: F Status: DEP ER SPEC: [id number] ORION: 03/29/19 [facility] DR: Leo Morales MD REQ: [id number] RECD: 03/29/19 STATUS: CB CASTREJON DR: [facility] Brandee Mayfield MD _ SOURCE: URINE SPDESC: ORDERED: Urine Culture Procedure Result Reported Site Urine Culture Final 03/31/19- 924 ML Organism 1 ESCHERICHIA COLI Leon Count 25-50,000 (Moderate) CFU/ML 1. ESCHERICHIA COLI [...] . END OF REPORT DEPARTMENT OF PATHOLOGY, [address] [place] [address] Shin Schmidt M.D. Director [facility] # [id number] 16 Unable to evaluate urinalysis dipstick results due to interfering color. Unable to evaluate urinalysis dipstick results due to interfering color. 17 Because ethnic data is not always readily [...] 15-29 5 Kidney failure <15 (or dialysis) 18 Because ethnic data is not always [...] 5 Kidney failure <15 (or dialysis) 19 Because ethnic data is not always [...] 5 Kidney failure <15 (or dialysis) 20 Troponin-I testing on Plasma Separator Tubes (PST) has a known false positive rate of 0.20-0.40%. All positive troponins reflex immediately to secondary confirmatory testing. Using the [employer] DxI 800 Access Immunoassay systems, the 99th percentile upper reference limit was demonstrated to be < 0.03 ng/mL. 21 Standard intensity warfarin therapeutic range: 2.0-3.0 High intensity warfarin therapeutic range: 2.5-3.5 22 Because ethnic data is not always readily [...] 15-29 5 Kidney failure <15 (or dialysis) 23 Troponin-I testing on Plasma Separator Tubes (PST) has a known false positive rate of 0.20-0.40%. All positive troponins reflex immediately to secondary confirmatory testing. Using the [employer] DxI 800 Access Immunoassay systems, the 99th percentile upper reference limit was demonstrated to be < 0.03 ng/mL. 24 Normal Range 180 to 914 Indeterminate Range 145 to 180 Deficient Range <145 25 Because ethnic data is not always readily [...] 15-29 5 Kidney failure <15 (or dialysis) 26 [facility] Severe Sepsis and Septic Shock Management Bundle Measure requires all lactic acids initially measuring >2.0 mmol/L be repeated. Procedures Date Code Description Status 03/09/2019 21828 Admin Of Inj Completed 03/08/2019 26747 EKG Tracing & Interpretation Completed 02/07/2019 45039 ECHO Transthorasic Realtime 2D W Doppler & Color Flow Completed Hosp 02/07/2019 21505 EKG, Interpretation Only Completed 02/06/2019 43082 Cath PLMT&NJX L Ventriculog Img S&I Completed 02/06/2019 85731 EKG, Interpretation Only Completed 06/02/2018 [id number] Bone Mineral Density Test Completed 06/02/2018 [id number] Mammogram Completed 07/14/2016 [id number] Mammogram Completed 07/03/2016 [id number] Colonoscopy Completed 06/26/2016 [id number] Colonoscopy Completed 09/06/2013 [id number] Mammogram Completed Medical Devices Description No Information Available Encounters Type Date Location Provider Dx Diagnosis Office Visit 06/09/2019 [facility] Nephrology Hiral Blackwood I12.9 Hypertensive chronic 9:40a MD Madhav kidney disease w stg 1-4/unsp chr kdny N18.4 Chronic kidney disease, stage 4 (severe) E78.5 Hyperlipidemia, unspecified Office Visit 04/28/2019 10:00a [facility] Nephrology Hiral Blackwood N17.9 Acute kidney MD Madhav failure, unspecified I12.9 Hypertensive chronic kidney disease w stg 1-4/unsp chr kdny N18.3 Chronic kidney disease, stage 3 (moderate) E78.5 Hyperlipidemia, unspecified Office Visit 04/19/2019 9:30a [facility] Nephrology Hiral Blackwood N17.9 Acute kidney MD Madhav failure, unspecified I12.9 Hypertensive chronic kidney disease w stg 1-4/unsp chr kdny N18.3 Chronic kidney disease, stage 3 (moderate) E78.5 Hyperlipidemia, unspecified I10 Essential (primary) hypertension Office Visit 04/17/2019 10:10a [facility] Internal Tenisha Roche0 Essential (primary) Medicine - Bren Gomez hypertension Z23 Encounter for immunization R20.2 Paresthesia of skin Office Visit 04/04/2019 9:50a [facility] Internal Tenisha Roche0 Essential (primary) Medicine - Bren Gomez hypertension I12.9 Hypertensive chronic kidney disease w stg 1-4/unsp chr kdny 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 K13.0 Diseases of lips Z11.59 Encounter for screening for other viral diseases Z13.1 Encounter for screening for diabetes mellitus Office Visit 03/24/2019 9:30a [facility] Nephrology Hiral Blackwood I12.9 Hypertensive MD Madhav chronic kidney disease w stg 1-4/unsp chr kdny N18.3 Chronic kidney disease, stage 3 (moderate) E78.5 Hyperlipidemia, unspecified I10 Essential (primary) hypertension Office Visit 03/08/2019 1:00p [facility] Kaden López R07.9 Chest pain, Of Maggy Iglesias M.D., unspecified FACC, FASNC I10 Essential (primary) hypertension R94.31 Abnormal electrocardiogram [ECG] [EKG] 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 hypertension K59.00 Constipation, unspecified E03.9 Hypothyroidism, unspecified K21.9 Gastro-esophageal reflux disease without esophagitis Office Visit 02/08/2019 9:51a [facility] Leeann Guzman MD R07.89 Other chest pain Assoc,pc Hospitalists Office Visit 02/06/2019 9:41a [facility] Michelle R07.9 Chest pain, Assoc,pc MARIO ALBERTO Sanchez unspecified Hospitalists K59.00 Constipation, unspecified Office Visit 01/16/2019 [facility] Internal Brandee Mayfield, K21.9 Gastro-esophageal 3:00p Medicine - reflux disease without Ccmob esophagitis M81.0 Age-related osteoporosis w/o current pathological fracture M13.0 Polyarthritis, unspecified H81.03 Meniere's disease, bilateral Assessments Date Code Description Provider 06/22/2019 S82.62xA Displaced fracture of lateral Jose Kenyetta Deras MD malleolus of left fibula, initial encounter for closed fracture 06/09/2019 I12.9 Hypertensive chronic kidney disease Hiral [...] Hiral Corey MD (moderate) 04/28/2019 E78.5 Hyperlipidemia, chrisified Hiral Corey MD 04/19/2019 N17.9 Acute kidney failure, unspecified Hiral Corey MD 04/19/2019 I12.9 Hypertensive chronic kidney disease Hiral Corey MD with stage 1 through stage 4 chronic kidney disease, or unspecified chronic kidney disease 04/19/2019 N18.3 Chronic kidney disease, stage 3 Hiral Corey MD (moderate) 04/19/2019 E78.5 Hyperlipidemia, chrisified Hiral Corey MD 04/19/2019 I10 Essential (primary) [...] unspecified chronic kidney disease 04/04/2019 Z79.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 therapy 04/04/2019 K13.0 Diseases of lips Caty Kearns [...] R07.9 Chest pain, unspecified Kaden Iglesias M.D., [facility] 03/08/2019 I10 Essential (primary) hypertension Kaden Iglesias M.D., [facility], [facility] 03/08/2019 R94.31 Abnormal electrocardiogram [ECG] Kaden Iglesias M.D., [EKG] [facility], [facility] 03/08/2019 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 Iglesias M.D., [place] coronary artery without angina [facility] pectoris 02/22/2019 I10 Essential (primary) hypertension Brandee Mayfield MD 02/14/2019 Z48.812 Encounter for surgical aftercare Markos Velasco M.D., [facility], following surgery on the circulatory [facility] 02/14/2019 I10 Essential (primary) hypertension Markos Velasco M.D., [facility], [facility] 02/14/2019 I44.7 Left bundle-branch block, unspecified Markos Velasco M.D., [facility], [facility] 02/09/2019 I10 Essential (primary) hypertension Garrett Francois M.D. 02/09/2019 K59.00 Constipation, unspecified Garrett Francois M.D. 02/09/2019 E03.9 Hypothyroidism, unspecified Garrett Francois M.D. 02/09/2019 K21.9 Gastro-esophageal reflux disease Garrett Francois M.D. without esophagitis 02/08/2019 R07.89 Other chest pain Leeann Guzman MD 02/07/2019 R94.31 Abnormal electrocardiogram [ECG] Vanessa Maldonado M.D. [EKG] 02/07/2019 R07.9 Chest pain, unspecified Freddy Carter M.D. 02/07/2019 R07.89 Other chest pain Leeann Guzman MD 02/07/2019 K21.9 Gastro-esophageal reflux disease Leeann Guzman MD without esophagitis 02/07/2019 K59.00 Constipation, unspecified Leeann Guzman MD 02/06/2019 R94.31 Abnormal electrocardiogram [ECG] Vanessa Maldonado M.D. [EKG] 02/06/2019 R07.9 Chest pain, unspecified Michelle Sanchez, [employer] 02/06/2019 R07.89 Other chest pain Veto Chi MD, [facility], [facility] 02/06/2019 K59.00 Constipation, unspecified Michellepadma Sanchez, [employer] 01/16/2019 K21.9 Gastro-esophageal reflux disease Brandee Mayfield MD without esophagitis 01/16/2019 M81.0 Age-related osteoporosis without Brandee Mayfield MD current pathological fracture 01/16/2019 M13.0 Polyarthritis, unspecified Brandee Mayfield MD 01/16/2019 H81.03 Meniere's disease, bilateral Brandee Mayfield MD Plan of Treatment Future Appointment(s):08/10/2019 10:00 am - Cristóbal Biswas MD at [facility] - [facility]07/05/2019 1:45 pm - Jose Deras MD at [facility] at [facility]406/27/2019 10:15 am - Claudia Slade MD at [facility]04/03/2020 10:30 am - Michael Matos M.D. at [facility]07/18/2019 9:10 am - Caty Kearns M.D. at [facility] Internal Medicine - [facility]06/22/2019 - JAMIL Miramontes82.62xA Displaced fracture of lateral malleolus of left fibula, initial encounter for closed fractureNew Medication:Knee Scooter - Disp 1 knee scooter Ht 65 Wt 145 Functional Status Description No Information Available Mental Status Description No Information Available Referrals Refer to Dr Reason for Referral Status Appt Date Zulay Ambrocio MD Sent 07/05/2019 [address], [place] [address] [phone] Claudia Slade MD Sent 06/27/[address] [place] [address], [place] [address] [phone] Rob Lovett MD Sent 08/01/2019 [address] [place] [place] [address] [place] [address] [phone] Hiral Corey MD pls evaluate pt with recent decline in GFR Sent 03/[address] [place] [address] [phone]
--- OUTSIDE RECORDS SUMMARY | 2019-06-27 22:26 | XMS REPORT | Continuity of Care Document ---
:1945 External Reference #:[id number] Author Name Jose Deras MD (transmitted by agent of provider Tiffani Hong) Address [address] [place] [address] Care Team Providers Name Role Phone Daren Root MD - Internal Care Team Information Roller Picker Medicine Dallin Stern MD - Occupational Care Team Information Roller Picker [phone] Medicine Brandee Mayfield M.D. - Family Medicine Care Team Information Roller Picker Problems Active Problems Provider Date Occult blood in stools Daren Root M.D.,FACP Onset: 04/13/2017 Coronary arteriosclerosis Kaden Iglesias M.D., [facility], FASMO Onset: 2014 Iron deficiency anemia Daren Root M.D.,FACP Onset: 04/01/2017 Essential hypertension Daren Root M.D.,FACP Onset: 04/01/2017 Shane-en-Y gastrojejunostomy Daren Root M.D.,FACP Onset: 04/23/2017 Note: sees Dr. Weber Major depressive disorder Daren Root M.D.,FACP Onset: 04/23/2017 Fibromyalgia Daren Root M.D.,KATERINA Onset: 04/23/2017 Atherosclerotic heart disease of Kaden Iglesias M.D., [facility], Onset: 2018 [place] coronary artery with FASNC unspecified angina pectoris Encounter for planned postprocedural Markos Velasco M.D., [facility], FSCAI Onset: wound closure Left bundle branch block Markos Velasco M.D., [facility], [facility] Onset: 02/14/2019 Chest pain Kaden Iglesias M.D., [facility], Onset: 03/08/2019 FASNC Raynaud's phenomenon Caty Kearns [...] 16units Linoofiute Jamil, 05/07/2018 each nostril one EXPLOSION WELDER 50mcg/Act Suspension time a day for 1 week, then 1 spray thereafter Phenazopyridine HCL 2 tabs po tid as 24tabs Linoofiute Jamil, 01/04/2018 100mg needed EXPLOSION WELDER Tablets Blood Pressure Cuff use daily as 1units I10 Sadi Jamil, 09/29/2017 [facility] instructed to EXPLOSION WELDER check bp Gabapentin 2 tab at night 180tabs Brandee Mayfield MD 09/15/2017 600mg Tablets Simvastatin Take 1 Tablet 90tabs Cyndi 08/25/2013 20mg Tablets Daily Jason Márquez Aspir-81 1 by mouth every Kaden Dawn 08/25/[address] reta Iglesias M.D., [facility], FASMO Amitriptyline HCL 1 by mouth every 90tabs M79.7 Zsofia Omero, 50mg night at bedtime EXPLOSION WELDER Tablets Vitamin B-12 1 by mouth every 30tabs Unknown 500mcg day( when Tablets Sub remembers) Multivitamin 1 by mouth every Unknown Tablets day (when she remembers) Citracal 2-4 a day PO(when Unknown Tablets remembers) Carafate one tablet on Unknown 1gm Tablets empty stomach one hour before meals daily. (3xdaily) Cephalexin Dalton, 500mg Capsules Leo Dickson MD History Medications [...] 90tabs I10 Markos Velasco, 02/14/2019 - Jason, [facility], [facility] 02/22/2019 50mg Tablets Medications Administered in [...] CPT Code Status Date Vaccine Lot # 63376 Given 04/17/2019 Pneumococcal Conjugate Vaccine 13 Valent For [id number] Intramuscular Use 32201 Given 02/15/2019 Influenza Virus Vaccine, Quadrivalent, Split, Im Use 6-35mo 52060 Given 02/06/2017 Pneumonia Vaccine 23111 Given 02/06/2017 Influenza Virus Vaccine, Quadrivalent, Split, [...] Range Note Iron & Iron Binding 06/19/2019 [facility] Iron 87 g/dL Normal 50-[address] [place] [address] [phone] Unsaturated Iron Binding < 502 g/dL Total Iron Binding Capacity 517 g/dL High 250-450 Transferrin 369 mg/dL High 203-362 % Iron Saturation 17 % Normal 15-55 Laboratory test 06/19/2019 [facility] Ferritin 5.7 ng/mL Low 11-[address] [place] [address] [phone] Albumin 4.5 g/dL Normal 3.2-5.2 Neph Routine 06/19/2019 [facility] Total Protein Random 50 mg/ dL [address] [place] [address] [phone] Creatinine Random Urine 141.89 mg/dL CBC Auto 06/19/2019 [facility] White Blood 6.3 10^3/uL Normal 3.5-10.[address] [place] [address] [phone] Red Blood Count 3.75 10^6/uL Normal 3.70-4.87 [...] Blood Cells % 0.0 Basic Metabolic 06/19/2019 [facility] Sodium 137 mmol/L Normal 135-145 Panel [address] [place] [address] [phone] Potassium 3.3 mmol/L Low 3.5-5.0 Chloride 103 mmol/L Normal 101-111 Co2 Carbon Dioxide 26 mmol/L Normal 22-32 Anion Gap 8 mmol/L Normal 2-11 Glucose 109 mg/dL High 70-100 Blood Urea Nitrogen 31 mg/dL High 6-24 Creatinine 2.59 mg/dL High 0.51-0.95 BUN/Creatinine Ratio 12.0 Normal 8-20 Calcium 8.4 mg/dL Low 8.6-10.3 Egfr Non- 18.1 >60 Egfr 21.9 >60 1 Urinalysis Profile 06/19/2019 [facility] Urine Color Yellow [address] [place] [address] [phone] Urine Appearance Cloudy Urine Specific [place] 1.015 Normal 1.010-1.030 Urine pH 5.0 Normal [...] Urine Squamous Epithelial Cell Present Abnormal Absent Aguilita/Lambda Free 06/19/2019 [facility] Aguilita Free 7.05 mg/dL Abnormal 3 Light Ch[address] [place] [address] [place] [address] [phone] Lambda Free Light Chain 3.03 mg/dL Abnormal 4 [place]/Lambda Free Light Chain 2.33 Abnormal 5 Urine Culture And 06/19/2019 [facility] Urine SEE RESULT [address] [place] [address] [phone] Laboratory test 06/07/2019 [facility] Albumin 4.5 g/dL Normal 3.2-[address]2 [place] [address] [phone] Calcium 9.8 mg/dL Normal 8.6-10.3 Urinalysis Profile 06/07/2019 [facility] Urine Color Yellow [address] [place] [address] [phone] Urine Appearance Clear Urine Specific [place] 1.009 Low 1.010-1.030 Urine pH 5.0 Normal 5-9 Urine Urobilinogen Negative Negative Urine Ketones Negative Negative Urine Protein Negative Negative Urine Leukocytes Negative Negative Urine Blood Negative Negative Urine Nitrite Negative Negative Urine Bilirubin Negative Negative Urine Glucose Negative Negative Basic Metabolic 06/07/2019 [facility] Sodium 139 mmol/L Normal 135-[address] [place] [address] [phone] Potassium 4.3 mmol/L Normal 3.5-5.0 Chloride 105 mmol/L Normal 101-111 Co2 Carbon Dioxide 27 mmol/L Normal 22-32 Anion Gap 7 mmol/L Normal 2-11 Glucose 105 mg/dL High 70-100 Blood Urea Nitrogen 31 mg/dL High 6-24 Creatinine 1.88 mg/dL High 0.51-0.95 BUN/Creatinine Ratio 16.5 Normal 8-20 Egfr Non- 26.2 >60 Egfr 31.7 >60 7 CBC Auto 06/07/2019 [facility] White Blood 4.5 10^3/uL Normal 3.5-10.[address] [place] [address] [phone] Red Blood Count 3.48 10^6/uL Low 3.70-4.87 [...] Blood Cells % 0.0 Neph Routine 06/07/2019 [facility] Total Protein Random 16 mg/ dL [address] [place] [address] [phone] Creatinine Random Urine 57.66 mg/dL Neph Routine 04/26/2019 [facility] Total Protein Random 70 mg/ dL [address] [place] [address] [phone] Creatinine Random Urine 250.86 mg/dL CBC Auto 04/26/2019 [facility] White Blood 4.2 10^3/uL Normal 3.5-10.[address] [place] [address] [phone] Red Blood Count 3.82 10^6/uL Normal 3.70-4.87 [...] Blood Cells % 0.0 Basic Metabolic 04/26/2019 [facility] Sodium 142 mmol/L Normal 135-[address] [place] [address] [phone] Potassium 3.8 mmol/L Normal 3.5-5.0 Chloride 109 mmol/L Normal 101-111 Co2 Carbon Dioxide 25 mmol/L Normal 22-32 Anion Gap 8 mmol/L Normal 2-11 Glucose 120 mg/dL High 70-100 Blood Urea Nitrogen 21 mg/dL Normal 6-24 Creatinine 1.71 mg/dL High 0.51-0.95 BUN/Creatinine Ratio 12.3 Normal 8-20 Calcium 9.4 mg/dL Normal 8.6-10.3 Egfr Non- 29.3 >60 Egfr 35.5 >60 8 Urinalysis Profile 04/26/2019 [facility] Urine Color [place] [address] [place] [address] [phone] Urine Appearance Clear Urine Specific [place] 1.026 Normal 1.010-1.030 Urine pH 5.0 Normal [...] Present Abnormal Absent Urine Culture And 04/26/2019 [facility] Urine SEE RESULT [address] [place] [address] [phone] Protein 04/18/2019 [facility] Total 6.9 g/dL 6.3 - Electrophoresis [address] Protein(Pep) 7.9 [place] [address] [phone] Albumin 3.8 g/dL 3.4-4.7 Alpha-1 Globulin 0.2 g/dL 0.1-0.3 Alpha-2 Globulin 1.0 g/dL 0.6-1.0 Beta Globulin 1.0 g/dL 0.7-1.2 Gamma Globulin 0.9 g/dL 0.6-1.6 Albumin/Globulin Ratio 1.22 Impression See Comment 11 Hepatitis C Antibody 04/18/2019 [facility] HCV Index 0.02 s/c [address] [place] [address] [phone] Hepatitis C Antibody Negative Negative Laboratory 04/18/2019 [facility] Hemoglobin 6.1 % High 4.0- 5.6 12 test finding [address] A1c ([place] [address] HGB) [phone] HIV 1&2 p24 04/18/2019 [facility] HIV 4th Nonreactive Nonreactive Screen [address] [place] [address] [phone] Laboratory 04/18/2019 [facility] TSH (Thyroid 3.81 mcIU/mL Normal 0.34-5.60 test finding [address] Stim [place]) [place] [address] [phone] Basic 04/18/2019 [facility] Sodium 137 mmol/L Normal 135-[address] [place] [address] [phone] Potassium 4.8 mmol/L Normal 3.5-5.0 Chloride 106 mmol/L Normal 101-111 Co2 Carbon Dioxide 24 mmol/L Normal 22-32 Anion Gap 7 mmol/L Normal 2-11 Glucose 112 mg/dL High 70-100 Blood Urea Nitrogen 28 mg/dL High 6-24 Creatinine 1.93 mg/dL High 0.51-0.95 BUN/Creatinine Ratio 14.5 Normal 8-20 Calcium 9.0 mg/dL Normal 8.6-10.3 Egfr Non- 25.5 >60 Egfr 30.9 >60 13 Laboratory test 04/18/2019 [facility] Creatinine Random 89.12 mg /dL finding [address] [place] [address] [phone] Total Protein Random Urine 25 mg/dL CBC Auto 04/18/2019 [facility] White Blood 4.5 10^3/uL Normal 3.5-10.[address] [place] [address] [phone] Red Blood Count 3.90 10^6/uL Normal 3.70-4.87 [...] Blood Cells % 0.0 Urinalysis Profile 04/18/2019 [facility] Urine Color Yellow [address] [place] [address] [phone] Urine Appearance Clear Urine Specific [place] 1.013 Normal 1.010-1.030 Urine pH 5.0 Normal 5-9 Urine Urobilinogen Negative Negative Urine Ketones Negative Negative Urine Protein Negative Negative Urine Leukocytes Negative Negative Urine Blood Negative Negative Urine Nitrite Negative Negative Urine Bilirubin Negative Negative Urine Glucose Negative Negative Neph Routine 04/10/2019 [facility] Total Protein Random 15 mg/ dL [address] [facility] [address] [phone] Creatinine Random Urine 61.39 mg/dL Urinalysis Profile 04/10/2019 [facility] Urine Color Yellow [address] [place] [address] [phone] Urine Appearance Clear Urine Specific [place] 1.011 Normal 1.010-1.030 Urine pH 5.0 Normal 5-9 Urine Urobilinogen Negative Negative Urine Ketones Negative Negative Urine Protein Negative Negative Urine Leukocytes Negative Negative Urine Blood Negative Negative Urine Nitrite Negative Negative Urine Bilirubin Negative Negative Urine Glucose Negative Negative Neph Routine 04/08/2019 [facility] Urine Random Total 52 mg/dL [address] [facility] Protein [place], [place] [address] [phone] Urine Random Creatinine 190.93 mg/dL CBC Auto 04/08/2019 [facility] White Blood 3.6 10^3/uL Normal 3.5-10.[address] [place] [address] [phone] Red Blood Count 3.95 10^6/uL Normal 3.70-4.87 [...] Blood Cells % 0.2 Basic Metabolic 04/08/2019 [facility] Sodium 138 mmol/L Normal 135-145 Panel [address] [place] [address] [phone] Potassium 4.4 mmol/L Normal 3.5-5.0 Chloride 102 mmol/L Normal 101-111 Co2 Carbon Dioxide 29 mmol/L Normal 22-32 Anion Gap 7 mmol/L Normal 2-11 Glucose 105 mg/dL High 70-100 Blood Urea Nitrogen 30 mg/dL High 6-24 Creatinine 1.74 mg/dL High 0.51-0.95 BUN/Creatinine Ratio 17.2 Normal 8-20 Calcium 9.0 mg/dL Normal 8.6-10.3 Egfr Non- 28.8 >60 Egfr 34.8 >60 14 Hepatitis C Antibody 04/08/2019 [facility] HCV Index 0.01 s/c [address] [place] [address] [phone] Hepatitis C Antibody Negative Negative Urine Culture And 03/29/2019 [facility] Urine Culture SEE RESULT [address] [place] [address] [phone] Urinalysis Profile 03/29/2019 [facility] Urine Color [place] [address] [place] [address] [phone] Urine Appearance Cloudy Urine White Blood Cell 3+(>20/hpf) Abnormal Absent Urine Red Blood Cell 3+(>10/hpf) Abnormal Absent Urine Bacteria Absent Absent Basic Metabolic 03/29/2019 [facility] Sodium 140 mmol/L Normal 135-[address] [place] [address] [phone] Potassium 3.9 mmol/L Normal 3.5-5.0 Chloride 106 mmol/L Normal 101-111 Co2 Carbon Dioxide 27 mmol/L Normal 22-32 Anion Gap 7 mmol/L Normal 2-11 Glucose 81 mg/dL Normal 70-100 Blood Urea Nitrogen 24 mg/dL Normal 6-24 Creatinine 1.49 mg/dL High 0.51-0.95 BUN/Creatinine Ratio 16.1 Normal 8-20 Calcium 9.5 mg/dL Normal 8.6-10.3 Egfr Non- 34.4 >60 Egfr 41.6 >60 17 CBC Auto 03/29/2019 [facility] White Blood 9.4 10^3/uL Normal 3.5-10.[address] [place] [address] [phone] Red Blood Count 4.02 10^6/uL Normal 3.70-4.87 [...] Blood Cells % 0.0 Basic Metabolic 02/22/2019 [facility] Sodium 140 mmol/L Normal 135-145 Panel [address] [place] [address] [phone] Potassium 4.1 mmol/L Normal 3.5-5.0 Chloride 104 mmol/L Normal 101-111 Co2 Carbon Dioxide 31 mmol/L Normal 22-32 Anion Gap 5 mmol/L Normal 2-11 Glucose 86 mg/dL Normal 70-100 Blood Urea Nitrogen 23 mg/dL Normal 6-24 Creatinine 1.44 mg/dL High 0.51-0.95 BUN/Creatinine Ratio 16.0 Normal 8-20 Calcium 9.5 mg/dL Normal 8.6-10.3 Egfr Non- 35.8 >60 Egfr 43.3 >60 18 Basic Metabolic 02/10/2019 [facility] Sodium 139 mmol/L Normal 135-145 Panel [address] [place] [address] [phone] Potassium 4.0 mmol/L Normal 3.5-5.0 Chloride 101 mmol/L Normal 101-111 Co2 Carbon Dioxide 35 mmol/L High 22-32 Anion Gap 3 mmol/L Normal 2-11 Glucose 93 mg/dL Normal 70-100 Blood Urea Nitrogen 20 mg/dL Normal 6-24 Creatinine 1.35 mg/dL High 0.51-0.95 BUN/Creatinine Ratio 14.8 Normal 8-20 Calcium 9.6 mg/dL Normal 8.6-10.3 Egfr Non- 38.5 >60 Egfr 46.6 >60 19 Laboratory test 02/10/2019 [facility] Magnesium 2.1 mg/dL Normal 1.9-2.7 finding [address] [place] [address] [phone] Free T4 (Free Thyroxine) 0.95 ng/dL Normal 0.61-1.12 Laboratory 02/06/2019 [facility] Troponin-I 0.01 <0.[address] (TnI) ng/[place] [address] [phone] CBC Auto Diff 02/06/2019 [facility] White Blood 3.5 Normal 3.5 -10.[address] Count 10^3/[place] [address] [phone] Red Blood Count 4.57 10^6/uL Normal 3.70-4.87 [...] Red Blood Cells % 0.0 Inr/Protime 02/06/2019 [facility] Inr 0.98 Normal 0.82-1.[address] [place] [address] [phone] Comp Metabolic 02/06/2019 [facility] Sodium 139 mmol/L Normal 135-[address] [place] [address] [phone] Potassium 3.7 mmol/L Normal 3.5-5.0 Chloride 101 [...] Egfr 45.9 >60 22 Laboratory test 02/06/2019 [facility] Troponin-I (TnI) 0.00 ng/ mL <0.04 [address] [place] [address] [phone] Magnesium 2.4 mg/dL Normal 1.9-2.7 TSH (Thyroid Stim Horm) 6.64 mcIU/mL High 0.34-5.60 Vitamin B12 405 pg/mL Normal 180-914 24 CBC Auto 02/02/2019 [facility] White Blood 4.0 10^3/uL Normal 3.5-10.[address] [place] [address] [phone] Red Blood Count 4.24 10^6/uL Normal 3.70-4.87 [...] Blood Cells % 0.1 Comp Metabolic 02/02/2019 [facility] Sodium 139 mmol/L Normal 135-145 Panel [address] [place] [address] [phone] Potassium 3.4 mmol/L Low 3.5-5.0 Chloride 103 [...] Egfr 46.6 >60 25 Laboratory test 02/02/2019 [facility] Lipase 17 U/L Normal 11.0-82.0 finding [address] [place] [address] [phone] C Reactive Protein < 1.00 mg/L Normal <8.01 Lactic Acid 0.7 mmol/L Normal 0.5-2.0 26 Urinalysis Profile 02/02/2019 [facility] Urine Color Colorless [address] [place] [address] [phone] Urine Appearance Clear Urine Specific [place] 1.003 Low 1.010-1.030 Urine pH 7.0 Normal [...] recommended. REFERENCE VALUE 0.2600-1.65 Test Performed by: [facility] - [facility] [address] [place] [address] Animal Biologist: Steven Chau M.D. Ph.D.; CLIA# [id number] 6 SEE RESULT BELOW Name: CARLYLE GIANG : [address]: Hiral Corey MD Acct: [id number] Unit: [id number] AGE: 74 Location: LAB Re06/19/19 SEX: F Status: REG REF SPEC: [id number] ORION: 06/19/19-[address]: Hiral Corey MD REQ: [id number] RECD: 06/19/19 STATUS: COMP _ SOURCE: URINE SPDESC: ORDERED: Urine Culture Procedure Result Reported Site Urine Culture Final 06/21/19- 1027 ML Organism 1 ESCHERICHIA COLI [place] Count 1-10,000 (Few) CFU/ML Organism 2 NORMAL ADRI [place] Count 10-25,000 (Moderate) CFU/ML 1. ESCHERICHIA COLI M.I.C. RX --------- ------ Ampicillin 16 I Cefazolin <=4 S Cefepime <=1 S Ceftriaxone <=1 S Ciprofloxacin <=0.25 S Gentamicin <=1 S Levofloxacin <=0.12 S Meropenem <=0.25 S Nitrofurantoin 32 S Tetracycline <=1 S Pipercillin/Tazobactam <=4 S Trimethoprim/Sulfamethoxazole <=20 S Amoxicillin/Clavulanic Acid 4 S Aztreonam <=1 S CONTINUED ON NEXT PAGE DEPARTMENT OF PATHOLOGY, [facility] [employer] [place], [place] [address] Shin Schmidt M.D. Director [facility] # [id number] Specimen: [id number] Collected: 06/19/19 Received: 06/19/19 (Continued) Procedure Result Reported Site Urine Culture Final (continued) Contact the Microbiology Department for any additional antibiotic reporting. * ML - Main Lab . END OF REPORT DEPARTMENT OF PATHOLOGY, [facility] [employer] [place], [place] [address] Shin Schmidt M.D. Director [facility] # [id number] 7 Because ethnic data is not always [...] [address]: Hiral Corey MD Acct: [id number] Unit: [id number] AGE: 73 Location: LAB Re04/26/19 SEX: F Status: REG REF SPEC: [id number] ORION: 04/26/[address]: Hiral Corey MD REQ: [id number] RECD: 04/26/19 STATUS: COMP _ SOURCE: URINE SPDESC: ORDERED: Urine Culture Procedure Result Reported Site Urine Culture Final 04/27/19- 1520 ML No Growth (<1,000 CFU/mL) * ML - Main Lab . END OF REPORT DEPARTMENT OF PATHOLOGY, [address] [place] [address] Shin Schmidt M.D. Director [facility] # [id number] RESULT: No apparent monoclonal protein on serum electrophoresis. Test Performed by: [facility] - [address] [address] Animal Biologist: Steven Chau M.D. Ph.D.; CLIA# [id number] 12 Therapeutic target for the treatment of diabetes mellitus patients is <7% HBA1C, and in selective patients <6.0%. Please refer to [place] [employer] diabetic care guidelines for further [...] [address]: Leo Morales MD Acct: [id number] Unit: [id number] AGE: 73 Location: ED Re03/29/19 SEX: F Status: DEP ER SPEC: [id number] ORION: 03/29/19 [facility] [address]: Leo Morales MD REQ: [id number] RECD: 03/29/19 STATUS: CB CASTREJON DR: [facility] Brandee Mayfield MD _ SOURCE: URINE SPDESC: ORDERED: Urine Culture Procedure Result Reported Site Urine Culture Final 03/31/19- 924 ML Organism 1 ESCHERICHIA COLI [place] Count 25-50,000 (Moderate) CFU/ML 1. ESCHERICHIA COLI [...] . END OF REPORT DEPARTMENT OF PATHOLOGY, [address] [place] [address] Shin Schmidt M.D. Director [facility] # [id number] 16 Unable to evaluate urinalysis dipstick results [...] immediately to secondary confirmatory testing. Using the [employer] DxI 800 Access Immunoassay systems, the 99th [...] immediately to secondary confirmatory testing. Using the [employer] DxI 800 Access Immunoassay systems, the 99th [...] 5 Kidney failure <15 (or dialysis) 26 [facility] Severe Sepsis and Septic Shock Management Bundle Measure requires all lactic acids initially measuring >2.0 mmol/L be repeated. Procedures Date Code Description Status 03/09/2019 02068 Admin Of Inj Completed 03/08/2019 70543 EKG Tracing & Interpretation Completed 02/07/2019 95402 ECHO Transthorasic Realtime 2D W Doppler & Color Flow Completed Hosp 02/07/2019 46851 EKG, Interpretation Only Completed 02/06/2019 80643 Cath PLMT&NJX L Ventriculog Img S&I Completed 02/06/2019 94961 EKG, Interpretation Only Completed 06/02/2018 [id number] Bone Mineral Density Test Completed 06/02/2018 56659409 Mammogram Completed 07/14/2016 [id number] Mammogram Completed 07/03/2016 [id number] Colonoscopy Completed 06/26/2016 [id number] Colonoscopy Completed 09/06/2013 90202275 Mammogram Completed Medical Devices Description No Information Available Encounters Type Date Location Provider Dx Diagnosis Office Visit 06/09/2019 [facility] Nephrology Hiral Blackwood I12.9 Hypertensive chronic 9:40a MD Madhav kidney disease w stg 1-4/unsp chr kdny N18.4 Chronic kidney disease, stage 4 (severe) E78.5 Hyperlipidemia, unspecified Office Visit 04/28/2019 10:00a [facility] Nephrology Hiral Blackwood N17.9 Acute kidney MD Madhav failure, unspecified I12.9 Hypertensive chronic kidney disease w stg 1-4/unsp chr kdny N18.3 Chronic kidney disease, stage 3 (moderate) E78.5 Hyperlipidemia, unspecified Office Visit 04/19/2019 9:30a [facility] Nephrology Hiral Blackwood N17.9 Acute kidney MD Madhav failure, unspecified I12.9 Hypertensive chronic kidney disease w stg 1-4/unsp chr kdny N18.3 Chronic kidney disease, stage 3 (moderate) E78.5 Hyperlipidemia, unspecified I10 Essential (primary) hypertension Office Visit 04/17/2019 10:10a [facility] Internal Tensiha Roche0 Essential (primary) Medicine - Bren Gomez hypertension Z23 Encounter for immunization R20.2 Paresthesia of skin Office Visit 04/04/2019 9:50a [facility] Internal Tenisha Roche0 Essential (primary) Medicine - Bren Gomez hypertension I12.9 Hypertensive chronic kidney disease w stg 1-4/unsp chr kdny Z79.899 Other terminal manager (current) drug therapy K13.0 Diseases of lips Z11.59 Encounter for screening for other viral diseases Z13.1 Encounter for screening for diabetes mellitus Office Visit 03/24/2019 9:30a [facility] Nephrology Hiral Blackwood I12.9 Hypertensive MD Madhav chronic kidney disease w stg 1-4/unsp chr kdny N18.3 Chronic kidney disease, stage 3 (moderate) E78.5 Hyperlipidemia, unspecified I10 Essential (primary) hypertension Office Visit 03/08/2019 1:00p [place] [facility] Kaden López R07.9 Chest pain, Of Maggy Iglesias M.D., unspecified FACC, FASNC I10 Essential (primary) hypertension R94.31 Abnormal electrocardiogram [ECG] [EKG] I25.10 Athscl heart disease of [place] coronary artery w/o ang pctrs Office Visit 02/22/2019 9:40a [facility] Internal Brandee Mayfield, I10 Essential Medicine - Bren DAVIS (primary) hypertension Office Visit 02/14/2019 3:00p [place] Markos Krista, Z48.812 [facility] Of [place] FACStan, surgical aftcr Environmental [employer] AT [facility] following surgery on the circ sys I10 Essential (primary) hypertension I44.7 Left bundle-branch block, unspecified Office Visit 02/09/2019 4:00p [facility] Internal Garrett Sinclair I10 Essential ( primary) Medicine - Bren Francois M.D. hypertension K59.00 Constipation, unspecified E03.9 Hypothyroidism, unspecified K21.9 Gastro-esophageal reflux disease without esophagitis Office Visit 02/08/2019 9:51a [facility] Leeann Guzman MD R07.89 Other chest pain Assoc,pc Hospitalists Office Visit 02/06/2019 9:41a [facility] Michelle R07.9 Chest pain, Assoc,pc MARIO ALBERTO Sanchez unspecified Hospitalists K59.00 Constipation, unspecified Office Visit 01/16/2019 [facility] Internal Brandee Mayfield, K21.9 Gastro-esophageal 3:00p [...] chronic kidney disease 04/04/2019 Z79.899 Other terminal manager (current) drug Caty Kearns M.D. therapy 04/04/2019 [...] R07.9 Chest pain, unspecified Kaden Iglesias M.D., [facility], [facility] 03/08/2019 I10 Essential (primary) hypertension Kaden Iglesias M.D., [facility], [facility] 03/08/2019 R94.31 Abnormal electrocardiogram [ECG] Kaden Iglesias M.D., [EKG] [facility], [facility] 03/08/2019 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 Iglesias M.D., [place] coronary artery without angina [facility] pectoris 02/22/2019 I10 Essential (primary) hypertension Brandee Mayfield MD 02/14/2019 Z48.812 Encounter for surgical aftercare Markos Velasco M.D., [facility], [facility] 02/14/2019 I10 Essential (primary) hypertension Markos Velasco M.D., [facility], [facility] 02/14/2019 I44.7 Left bundle-branch block, unspecified Markos Velasco M.D., [facility], [facility] 02/09/2019 I10 Essential (primary) hypertension Garrett [...] 02/06/2019 R07.9 Chest pain, unspecified Michelle Sanchez, [employer] 02/06/2019 R07.89 Other chest pain Veto Chi MD, [facility], [facility] 02/06/2019 K59.00 Constipation, unspecified Michellepadma Sanchez, [employer] REPRESENTATIVE 01/16/2019 K21.9 Gastro-esophageal reflux disease Brandee Mayfield MD without esophagitis 01/16/2019 M81.0 Age-related osteoporosis without Brandee Mayfield MD current pathological fracture 01/16/2019 M13.0 Polyarthritis, unspecified Brandee Mayfield MD 01/16/2019 H81.03 Meniere's disease, bilateral Brandee Mayfield MD Plan of Treatment Future Appointment(s):08/10/2019 10:00 am - Cristóbal Biswas MD at [facility] - [facility]07/05/2019 1:45 pm - Jose Deras MD at [facility]206/27/2019 10:15 am - Claudia Slade MD at [facility] Kcirzlsyzxv39/03/2020 10:30 am - Michael Matos M.D. at [facility]07/18/2019 9:10 am - Caty Kearns M.D. at [facility] Internal Medicine - [facility]06/22/2019 - JAMIL Miramontes82.62xA Displaced fracture of lateral malleolus of left fibula, initial encounter for closed fractureNew Medication:Knee Scooter - Disp 1 knee scooter Ht 65 Wt 145 Functional Status Description No Information Available Mental Status Description No Information Available Referrals Refer to Dr Reason for Referral Status Appt Date Zulay Ambrocio MD Sent 07/05/2019 [address], [place] [address] [phone] Claudia Slade MD Sent 06/27/[address] [place] [address], [place] [address] [phone] Rob Lovett MD Sent 08/01/2019 [address] [place] [address] [place] [address] [phone] Hiral Corey MD pls evaluate pt with recent decline in GFR Sent 03/[address] [place] [address] [phone]
--- OUTSIDE RECORDS SUMMARY | 2019-06-27 22:26 | XMS REPORT | Continuity of Care Document ---
:1945 External Reference #:[id number] Author Name Hiral Corey MD (transmitted by agent of provider Michelle Aparicio) Address [address] [place] [address] Care Team Providers Name Role Phone Daren Root MD - Internal Care Team Information Seat Mender [phone] Medicine Dallin Stern MD - Occupational Care Team Information Seat Mender [phone] Medicine Brandee Mayfield M.D. 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, FSCAI Onset: wound closure Left bundle branch block Markos Velasco M.D., [facility], [facility] Onset: 02/14/2019 Chest pain Kaden Iglesias M.D., [facility], Onset: 03/08/2019 FASNC Raynaud's phenomenon Caty Kearns M.D. Onset: 05/08/2019 Social History Type Date Description Comments Sex Unknown Tobacco Use Start: Unknown Never Smoked Cigarettes Smoking Status Reviewed: 06/23/19 Never Smoked Cigarettes ETOH Use Denies alcohol [...] Medications SIG Qnty Indications Ordering Date Provider Meclizine HCL 1 tab PO daily in 90units Mohammad A. 06/23/2019 25mg Am MD Madhav Chewtabs Potassium Chloride ER 1 tab by mouth 90tabs Mohammad A. 06/23/2019 daily MD Madhav 10Meq Tablets ER Knee Scooter disp 1 knee S82.62xA Jose F 06/22/2019 scooter ht 65 wt MD [place] 145 Dx S/p left ankle ORIF Chlorthalidone 1 tablet PO daily 30tabs N18.4 Mohammad A. 06/09/2019 25mg in Am MD Madhav Tablets Duloxetine HCL Take 1 Capsule 90caps Linoofiute Jamil, 05/09/2019 60mg Caps Daily PIPING ENGINEERKem Wilburn Spironolactone 1 by mouth every 30tabs [...] 16units Sadi Jamil, 05/07/2018 each nostril one PIPING ENGINEER 50mcg/Act Suspension time a day for 1 week, then 1 spray thereafter Phenazopyridine HCL 2 tabs po tid as 24tabs Sadi Jamil, 01/04/2018 100mg needed PIPING ENGINEER Tablets Blood Pressure Cuff use daily as 1units I10 Sadi Jamil, 09/29/2017 [facility] PIPING ENGINEER check bp Gabapentin 2 tab at night 180tabs Brandee Mayfield MD 09/15/2017 600mg Tablets Simvastatin Take 1 Tablet 90tabs Cyndi 08/25/2013 20mg Tablets Daily Jason Márquez Aspir-81 1 by mouth every Kaden Dawn 08/25/[address] reta Iglesias M.D., [facility], FASNC Amitriptyline HCL 1 by mouth every 90tabs M79.7 Zsofiute Jamil, 50mg night at bedtime PIPING ENGINEER Tablets Vitamin B-12 1 by mouth every 30tabs Unknown 500mcg day( when Tablets Sub remembers) Multivitamin 1 by mouth every Unknown Tablets day (when she remembers) Citracal 2-4 a day PO(when Unknown Tablets remembers) Carafate one tablet on Unknown 1gm Tablets empty stomach one hour before meals daily. (3xdaily) History Medications Minoxidil take 1 tablet by 90tabs N18.4 Hiral Blackwood 06/09/2019 - 10mg mouth daily at MD Madhav 06/09/2019 Tablets bedtime Metoprolol Succinate 1 tab by mouth Hiral Blackwood 05/30/2019 - ER every day at MD Madhav 05/31/2019 50mg Tablets ER bedtime 24HR Metoprolol Succinate 1 tab by mouth 90tabs Annammad Jaison 05/15/2019 - ER daily at bedtime MD Madhav 05/30/2019 25mg Tablets ER 24HR Hydralazine HCL 1/2 tab by mouth 90tabs Annammaiván Blackwood 05/11/2019 - 50mg three times MD Madhav 06/18/2019 Tablets daily Hydralazine HCL 1 tab by mouth 180tabs Annammad AIsaiah 05/03/2019 - 25mg three times a MD Madhav 05/11/2019 Tablets day Losartan Potassium one pill a day 90tabs I10 Markos Velasco, 02/14/2019 - Jason, [facility] 02/22/2019 50mg Tablets Medications Administered [...] CPT Code Status Date Vaccine Lot # 33780 Given 04/17/2019 Pneumococcal Conjugate Vaccine 13 Valent For [id number] Intramuscular Use 93566 Given 02/15/2019 Influenza Virus Vaccine, Quadrivalent, Split, Im Use 6-35mo 32846 Given 02/06/2017 Pneumonia Vaccine 26152 Given 02/06/2017 Influenza Virus Vaccine, Quadrivalent, Split, Preservative Free Vital Signs Date Vital Result Comment 06/23/2019 9:42am Height 65 inches 5'5" Weight 144.00 lb verbal report d/t w/c BMI (Body Mass Index) 24.0 kg/m2 06/22/2019 2:22pm Height 65 inches 5'5" Weight 145.00 lb Heart Rate 78 /min BP Systolic 100 mmHg BP Diastolic 58 mmHg Respiratory Rate 18 /min Body Temperature 98.0 F Pain Level 9 BMI (Body Mass Index) 24.1 kg/m2 Results Test Acquired Date Facility Test Result H/L Range Note Iron & Iron Binding 06/19/2019 [facility] Iron 87 g/dL Normal 50-212 [address] [place], [place] [id number] [phone] Unsaturated Iron Binding < 502 g/dL Total Iron Binding Capacity 517 g/dL High 250-450 Transferrin 369 mg/dL High 203-362 % Iron Saturation 17 % Normal 15-55 Laboratory test 06/19/2019 [facility] Ferritin 5.7 ng/mL Low 11-307 finding [address] [place], [place] [address] [phone] Albumin 4.5 g/dL Normal 3.2-5.2 Neph Routine 06/19/2019 [facility] Total Protein Random 50 mg/ dL 101 [facility] Urine [place], [place] [id number] [phone] Creatinine Random Urine 141.89 mg/dL CBC Auto 06/19/2019 [facility] White Blood 6.3 10^3/uL Normal 3.5-10.8 Diff 101 [facility] [address] [phone] Red Blood Count 3.75 10^6/uL Normal 3.70-4.87 [...] Blood Cells % 0.0 Basic Metabolic 06/19/2019 [facility] Sodium 137 mmol/L Normal 135-[address] [place] [address] [phone] Potassium 3.3 mmol/L Low 3.5-5.0 Chloride 103 mmol/L Normal 101-111 Co2 Carbon Dioxide 26 mmol/L Normal 22-32 Anion Gap 8 mmol/L Normal 2-11 Glucose 109 mg/dL High 70-100 Blood Urea Nitrogen 31 mg/dL High 6-24 Creatinine 2.59 mg/dL High 0.51-0.95 BUN/Creatinine Ratio 12.0 Normal 8-20 Calcium 8.4 mg/dL Low 8.6-10.3 Egfr Non- 18.1 >60 Egfr 21.9 >60 1 Urinalysis Profile 06/19/2019 [facility] Urine Color Yellow [address] [place] [address] [phone] Urine Appearance Cloudy Urine Specific [place] 1.015 Normal 1.010-1.030 Urine pH 5.0 Normal [...] Urine Squamous Epithelial Cell Present Abnormal Absent Nara Visa/Lambda Free 06/19/2019 [facility] Nara Visa Free 7.05 mg/dL Abnormal 3 Light Chains Ser [address] [place] [address] [phone] Lambda Free Light Chain 3.03 mg/dL Abnormal 4 Nara Visa/Lambda Free Light Chain 2.33 Abnormal 5 Urine Culture And 06/19/2019 [facility] Urine SEE RESULT [address] [place] [address] [phone] Laboratory test 06/07/2019 [facility] Albumin 4.5 g/dL Normal 3.2-[address] [place] [address] [phone] Calcium 9.8 mg/dL Normal 8.6-10.3 Urinalysis Profile 06/07/2019 [facility] Urine Color Yellow [address] [place] [address] [phone] Urine Appearance Clear Urine Specific [place] 1.009 Low 1.010-1.030 Urine pH 5.0 Normal 5-9 Urine Urobilinogen Negative Negative Urine Ketones Negative Negative Urine Protein Negative Negative Urine Leukocytes Negative Negative Urine Blood Negative Negative Urine Nitrite Negative Negative Urine Bilirubin Negative Negative Urine Glucose Negative Negative Basic Metabolic 06/07/2019 [facility] Sodium 139 mmol/L Normal 135-[address] [place] [address] [phone] Potassium 4.3 mmol/L Normal 3.5-5.0 Chloride 105 mmol/L Normal 101-111 Co2 Carbon Dioxide 27 mmol/L Normal 22-32 Anion Gap 7 mmol/L Normal 2-11 Glucose 105 mg/dL High 70-100 Blood Urea Nitrogen 31 mg/dL High 6-24 Creatinine 1.88 mg/dL High 0.51-0.95 BUN/Creatinine Ratio 16.5 Normal 8-20 Egfr Non- 26.2 >60 Egfr 31.7 >60 7 CBC Auto 06/07/2019 [facility] White Blood 4.5 10^3/uL Normal 3.5-10.[address] [place] [address] [phone] Red Blood Count 3.48 10^6/uL Low 3.70-4.87 [...] Blood Cells % 0.0 Neph Routine 06/07/2019 [facility] Total Protein Random 16 mg/ dL [address] [place] [address] [phone] Creatinine Random Urine 57.66 mg/dL Neph Routine 04/26/2019 [facility] Total Protein Random 70 mg/ dL [address] [place] [address] [phone] Creatinine Random Urine 250.86 mg/dL CBC Auto 04/26/2019 [facility] White Blood 4.2 10^3/uL Normal 3.5-10.[address] [place] [address] [phone] Red Blood Count 3.82 10^6/uL Normal 3.70-4.87 [...] Blood Cells % 0.0 Basic Metabolic 04/26/2019 [facility] Sodium 142 mmol/L Normal 135-[address] [place] [address] [phone] Potassium 3.8 mmol/L Normal 3.5-5.0 Chloride 109 mmol/L Normal 101-111 Co2 Carbon Dioxide 25 mmol/L Normal 22-32 Anion Gap 8 mmol/L Normal 2-11 Glucose 120 mg/dL High 70-100 Blood Urea Nitrogen 21 mg/dL Normal 6-24 Creatinine 1.71 mg/dL High 0.51-0.95 BUN/Creatinine Ratio 12.3 Normal 8-20 Calcium 9.4 mg/dL Normal 8.6-10.3 Egfr Non- 29.3 >60 Egfr 35.5 >60 8 Urinalysis Profile 04/26/2019 [facility] Urine Color Yellow [address] [place] [address] [phone] Urine Appearance Clear Urine Specific [place] 1.026 Normal 1.010-1.030 Urine pH 5.0 Normal [...] Present Abnormal Absent Urine Culture And 04/26/2019 [facility] Urine SEE RESULT [address] [place] [address] [phone] Protein 04/18/2019 [facility] Total 6.9 g/dL 6.3 - Electrophoresis [address] Protein(Pep) 7.9 [place] [address] [phone] Albumin 3.8 g/dL 3.4-4.7 Alpha-1 Globulin 0.2 g/dL 0.1-0.3 Alpha-2 Globulin 1.0 g/dL 0.6-1.0 Beta Globulin 1.0 g/dL 0.7-1.2 Gamma Globulin 0.9 g/dL 0.6-1.6 Albumin/Globulin Ratio 1.22 Impression See Comment 11 Hepatitis C Antibody 04/18/2019 [facility] HCV Index 0.02 s/c [address] [place] [address] [phone] Hepatitis C Antibody Negative Negative Laboratory 04/18/2019 [facility] Hemoglobin 6.1 % High 4.0- 5.6 [address] A1c ([place] [address] HGB) [phone] HIV 1&2 p24 04/18/2019 [facility] HIV 4th Nonreactive Nonreactive Screen [address] [place] [address] [phone] Laboratory 04/18/2019 [facility] TSH (Thyroid 3.81 mcIU/mL Normal 0.34-5.60 test finding [address] Stim Horm) [place], [place] [id number] [phone] Basic 04/18/2019 [facility] Sodium 137 mmol/L Normal 135-[address] [place] [address] [phone] Potassium 4.8 mmol/L Normal 3.5-5.0 Chloride 106 mmol/L Normal 101-111 Co2 Carbon Dioxide 24 mmol/L Normal 22-32 Anion Gap 7 mmol/L Normal 2-11 Glucose 112 mg/dL High 70-100 Blood Urea Nitrogen 28 mg/dL High 6-24 Creatinine 1.93 mg/dL High 0.51-0.95 BUN/Creatinine Ratio 14.5 Normal 8-20 Calcium 9.0 mg/dL Normal 8.6-10.3 Egfr Non- 25.5 >60 Egfr 30.9 >60 13 Laboratory test 04/18/2019 [facility] Creatinine Random 89.12 mg /dL finding [address] [place] [address] [phone] Total Protein Random Urine 25 mg/dL CBC Auto 04/18/2019 [facility] White Blood 4.5 10^3/uL Normal 3.5-10.[address] [place] [address] [phone] Red Blood Count 3.90 10^6/uL Normal 3.70-4.87 [...] Blood Cells % 0.0 Urinalysis Profile 04/18/2019 [facility] Urine Color Yellow [address] [place] [address] [phone] Urine Appearance Clear Urine Specific [place] 1.013 Normal 1.010-1.030 Urine pH 5.0 Normal 5-9 Urine Urobilinogen Negative Negative Urine Ketones Negative Negative Urine Protein Negative Negative Urine Leukocytes Negative Negative Urine Blood Negative Negative Urine Nitrite Negative Negative Urine Bilirubin Negative Negative Urine Glucose Negative Negative Neph Routine 04/10/2019 [facility] Total Protein Random 15 mg/ dL 101 [facility] [place] [address] [phone] Creatinine Random Urine 61.39 mg/dL Urinalysis Profile 04/10/2019 [facility] Urine Color Yellow [address] [place] [address] [phone] Urine Appearance Clear Urine Specific [place] 1.011 Normal 1.010-1.030 Urine pH 5.0 Normal 5-9 Urine Urobilinogen Negative Negative Urine Ketones Negative Negative Urine Protein Negative Negative Urine Leukocytes Negative Negative Urine Blood Negative Negative Urine Nitrite Negative Negative Urine Bilirubin Negative Negative Urine Glucose Negative Negative Neph Routine 04/08/2019 [facility] Urine Random Total 52 mg/dL [address] [place] [address] [phone] Urine Random Creatinine 190.93 mg/dL CBC Auto 04/08/2019 [facility] White Blood 3.6 10^3/uL Normal 3.5-10.[address] [place] [address] [phone] Red Blood Count 3.95 10^6/uL Normal 3.70-4.87 [...] Blood Cells % 0.2 Basic Metabolic 04/08/2019 [facility] Sodium 138 mmol/L Normal 135-[address] [place] [address] [phone] Potassium 4.4 mmol/L Normal 3.5-5.0 Chloride 102 mmol/L Normal 101-111 Co2 Carbon Dioxide 29 mmol/L Normal 22-32 Anion Gap 7 mmol/L Normal 2-11 Glucose 105 mg/dL High 70-100 Blood Urea Nitrogen 30 mg/dL High 6-24 Creatinine 1.74 mg/dL High 0.51-0.95 BUN/Creatinine Ratio 17.2 Normal 8-20 Calcium 9.0 mg/dL Normal 8.6-10.3 Egfr Non- 28.8 >60 Egfr 34.8 >60 14 Hepatitis C Antibody 04/08/2019 [facility] HCV Index 0.01 s/c [address] [place] [address] [phone] Hepatitis C Antibody Negative Negative Urine Culture And 03/29/2019 [facility] Urine Culture SEE RESULT [address] [place] [address] [phone] Urinalysis Profile 03/29/2019 [facility] Urine Color Dickey [address] [place] [address] [phone] Urine Appearance Cloudy Urine White Blood Cell 3+(>20/hpf) Abnormal Absent Urine Red Blood Cell 3+(>10/hpf) Abnormal Absent Urine Bacteria Absent Absent Basic Metabolic 03/29/2019 [facility] Sodium 140 mmol/L Normal 135-[address] [place] [address] [phone] Potassium 3.9 mmol/L Normal 3.5-5.0 Chloride 106 mmol/L Normal 101-111 Co2 Carbon Dioxide 27 mmol/L Normal 22-32 Anion Gap 7 mmol/L Normal 2-11 Glucose 81 mg/dL Normal 70-100 Blood Urea Nitrogen 24 mg/dL Normal 6-24 Creatinine 1.49 mg/dL High 0.51-0.95 BUN/Creatinine Ratio 16.1 Normal 8-20 Calcium 9.5 mg/dL Normal 8.6-10.3 Egfr Non- 34.4 >60 Egfr 41.6 >60 17 CBC Auto 03/29/2019 [facility] White Blood 9.4 10^3/uL Normal 3.5-10.[address] [place] [address] [phone] Red Blood Count 4.02 10^6/uL Normal 3.70-4.87 [...] Blood Cells % 0.0 Basic Metabolic 02/22/2019 [facility] Sodium 140 mmol/L Normal 135-145 Panel [address] [place] [address] [phone] Potassium 4.1 mmol/L Normal 3.5-5.0 Chloride 104 mmol/L Normal 101-111 Co2 Carbon Dioxide 31 mmol/L Normal 22-32 Anion Gap 5 mmol/L Normal 2-11 Glucose 86 mg/dL Normal 70-100 Blood Urea Nitrogen 23 mg/dL Normal 6-24 Creatinine 1.44 mg/dL High 0.51-0.95 BUN/Creatinine Ratio 16.0 Normal 8-20 Calcium 9.5 mg/dL Normal 8.6-10.3 Egfr Non- 35.8 >60 Egfr 43.3 >60 18 Basic Metabolic 02/10/2019 [facility] Sodium 139 mmol/L Normal 135-145 Panel [address] [place] [address] [phone] Potassium 4.0 mmol/L Normal 3.5-5.0 Chloride 101 mmol/L Normal 101-111 Co2 Carbon Dioxide 35 mmol/L High 22-32 Anion Gap 3 mmol/L Normal 2-11 Glucose 93 mg/dL Normal 70-100 Blood Urea Nitrogen 20 mg/dL Normal 6-24 Creatinine 1.35 mg/dL High 0.51-0.95 BUN/Creatinine Ratio 14.8 Normal 8-20 Calcium 9.6 mg/dL Normal 8.6-10.3 Egfr Non- 38.5 >60 Egfr 46.6 >60 19 Laboratory test 02/10/2019 [facility] Magnesium 2.1 mg/dL Normal 1.9-2.7 finding [address] [place] [address] [phone] Free T4 (Free Thyroxine) 0.95 ng/dL Normal 0.61-1.12 Laboratory 02/06/2019 [facility] Troponin-I 0.01 <0.04 [address] (TnI) ng/[place] [address] [phone] CBC Auto Diff 02/06/2019 [facility] White Blood 3.5 Normal 3.5 -10.[address] Count 10^3/[place] [address] [phone] Red Blood Count 4.57 10^6/uL Normal 3.70-4.87 [...] % 0.0 Inr/Protime 02/06/2019 [facility] Inr 0.98 Normal 0.82-1.[address] [place] [address] [phone] Comp Metabolic 02/06/2019 [facility] Sodium 139 mmol/L Normal 135-[address] [place] [address] [phone] Potassium 3.7 mmol/L Normal 3.5-5.0 Chloride 101 [...] Egfr 45.9 >60 22 Laboratory test 02/06/2019 [facility] Troponin-I (TnI) 0.00 ng/ mL <0.04 [address] [place] [address] [phone] Magnesium 2.4 mg/dL Normal 1.9-2.7 TSH (Thyroid Stim Horm) 6.64 mcIU/mL High 0.34-5.60 Vitamin B12 405 pg/mL Normal 180-914 24 CBC Auto 02/02/2019 [facility] White Blood 4.0 10^3/uL Normal 3.5-10.[address] [place] [address] [phone] Red Blood Count 4.24 10^6/uL Normal 3.70-4.87 [...] 0.1 Comp Metabolic 02/02/2019 [facility] Sodium 139 mmol/L Normal 135-145 Panel [address] [place] [address] [phone] Potassium 3.4 mmol/L Low 3.5-5.0 Chloride 103 [...] Egfr 46.6 >60 25 Laboratory test 02/02/2019 [facility] Lipase 17 U/L Normal 11.0-82.0 finding [address] [place] [address] [phone] C Reactive Protein < 1.00 mg/L Normal <8.01 Lactic Acid 0.7 mmol/L Normal 0.5-2.0 26 Urinalysis Profile 02/02/2019 [facility] Urine Color Colorless [address] [place] [address] [phone] Urine Appearance Clear Urine Specific [place] 1.003 Low 1.010-1.030 Urine pH 7.0 Normal [...] recommended. REFERENCE VALUE 0.2600-1.65 Test Performed by: [facility] [address] [place] [address] Health Services Coordinator: Steven Chau M.D. Ph.D.; CLIA# [id number] 6 SEE RESULT BELOW Name: CARLYLE GIANG : [address]: Hiral Corey MD Acct: [id number] Unit: [id number] AGE: 74 Location: LAB Re06/19/19 SEX: F Status: REG REF SPEC: [id number] ORION: 06/19/19-[address]: Hiral Corey MD REQ: [id number] RECD: 06/19/19-1054 STATUS: COMP _ SOURCE: URINE SPDESC: ORDERED: Urine Culture Procedure Result Reported Site Urine Culture Final 06/21/19- 1027 ML Organism 1 ESCHERICHIA COLI [facility] Count 1-10,000 (Few) CFU/ML Organism 2 NORMAL ADRI [facility] Count 10-25,000 (Moderate) CFU/ML 1. ESCHERICHIA COLI [facility].I.[facility]. RX --------- ------ Ampicillin 16 I Cefazolin <=4 S Cefepime <=1 S Ceftriaxone <=1 S Ciprofloxacin <=0.25 S Gentamicin <=1 S Levofloxacin <=0.12 S Meropenem <=0.25 S Nitrofurantoin 32 S Tetracycline <=1 S Pipercillin/Tazobactam <=4 S Trimethoprim/Sulfamethoxazole <=20 S Amoxicillin/Clavulanic Acid 4 S Aztreonam <=1 S CONTINUED ON NEXT PAGE DEPARTMENT OF PATHOLOGY, [facility] [employer] [place] [address] Shin Schmidt M.D. Director [facility] # [id number] Specimen: [id number] Collected: 06/19/19-1009 Received: 06/19/19 (Continued) Procedure Result Reported Site Urine Culture Final (continued) Contact the Microbiology Department for any additional antibiotic reporting. * ML - Main Lab . END OF REPORT DEPARTMENT OF PATHOLOGY, [facility] [employer] [place], [place] [address] Shin Schmidt M.D. Director [facility] # [id number] 7 Because ethnic data is not always [...] [address]: Hiral Corey MD Acct: [id number] Unit: [id number] AGE: 73 Location: LAB Re04/26/19 SEX: F Status: REG REF SPEC: [id number] ORION: 04/26/191152 SUBM DR: Hiral Corey MD REQ: [id number] RECD: 04/26/19 STATUS: COMP _ SOURCE: URINE SPDESC: ORDERED: Urine Culture Procedure Result Reported Site Urine Culture Final 04/27/19- 1520 ML No Growth (<1,000 CFU/mL) * ML - Main Lab . END OF REPORT DEPARTMENT OF PATHOLOGY, [address] [place] [address] Shin Schmidt M.D. Director [facility] # [id number] 11 RESULT: No apparent monoclonal protein on serum electrophoresis. Test Performed by: [facility] - [address] [place] [address] Health Services Coordinator: Steven Chau M.D. Ph.D.; IA# [id number] 12 Therapeutic target for the treatment of diabetes mellitus patients is <7% HBA1C, and in selective patients <6.0%. Please refer to [place] [employer] diabetic care guidelines for further [...] [address]: Leo Morales MD Acct: [id number] Unit: [id number] AGE: 73 Location: ED Re03/29/19 SEX: F Status: DEP ER SPEC: [id number] ORION: 03/29/19-1223 [facility] [address]: Leo Morales MD REQ: [id number] RECD: 03/29/19 STATUS: CB CASTREJON DR: [facility] Brandee Mayfield MD _ SOURCE: URINE SPDESC: ORDERED: Urine Culture Procedure Result Reported Site Urine Culture Final 03/31/19- 924 ML Organism 1 ESCHERICHIA COLI [facility] Count 25-50,000 (Moderate) CFU/ML 1. ESCHERICHIA COLI [...] END OF REPORT DEPARTMENT OF PATHOLOGY, [address] [place] [address] hSin Schmidt M.D. Director [facility] # [id number] 16 Unable to evaluate urinalysis dipstick results [...] immediately to secondary confirmatory testing. Using the [employer] DxI 800 Access Immunoassay systems, the 99th [...] immediately to secondary confirmatory testing. Using the [employer] Access Immunoassay systems, the 99th percentile upper [...] 5 Kidney failure <15 (or dialysis) 26 [facility] Severe Sepsis and Septic Shock Management Bundle Measure requires all lactic acids initially measuring >2.0 mmol/L be repeated. Procedures Date Code Description Status 03/09/2019 76274 Admin Of Inj Completed 03/08/2019 70056 EKG Tracing & Interpretation Completed 02/07/2019 34566 ECHO Transthorasic Realtime 2D W Doppler & Color Flow Completed Hosp 02/07/2019 36052 EKG, Interpretation Only Completed 02/06/2019 06448 Cath PLMT&NJX L Ventriculog Img S&I Completed 02/06/2019 46276 EKG, Interpretation Only Completed 06/02/2018 [id number] Bone Mineral Density Test Completed 06/02/2018 [id number] Mammogram Completed 07/14/2016 [id number] Mammogram Completed 07/03/2016 [id number] Colonoscopy Completed 06/26/2016 [id number] Colonoscopy Completed 09/06/2013 [id number] Mammogram Completed Medical Devices Description No Information Available Encounters Type Date Location Provider Dx Diagnosis Office Visit 06/09/2019 [facility] Nephrology Hiral Blackwood I12.9 Hypertensive chronic 9:40a MD Madhav kidney disease w stg 1-4/unsp chr kdny N18.4 Chronic kidney disease, stage 4 (severe) E78.5 Hyperlipidemia, unspecified Office Visit 04/28/2019 10:00a [facility] Nephrology Hiral Blackwood N17.9 Acute kidney MD Madhav failure, unspecified I12.9 Hypertensive chronic kidney disease w stg 1-4/unsp chr kdny N18.3 Chronic kidney disease, stage 3 (moderate) E78.5 Hyperlipidemia, unspecified Office Visit 04/19/2019 9:30a [facility] Nephbre Blackwood N17.9 Acute kidney MD Madhav failure, unspecified I12.9 Hypertensive chronic kidney disease w stg 1-4/unsp chr kdny N18.3 Chronic kidney disease, stage 3 (moderate) E78.5 Hyperlipidemia, unspecified I10 Essential (primary) hypertension Office Visit 04/17/2019 10:10a [facility] Internal Caty [place]ear[place], I10 Essential (primary) Medicine - Bren Gomez hypertension Z23 Encounter for immunization R20.2 Paresthesia of skin Office Visit 04/04/2019 9:50a [facility] Internal Caty Kearns, I10 Essential (primary) Medicine - Bren Gomez hypertension I12.9 Hypertensive chronic kidney disease w stg 1-4/unsp chr kdny Z79.899 Other long-term (current) drug therapy K13.0 Diseases of lips Z11.59 Encounter for screening for other viral diseases Z13.1 Encounter for screening for diabetes mellitus Office Visit 03/24/2019 9:30a [facility] Nephrology Hiral [place] I12.9 Hypertensive MD Madhav chronic kidney disease w stg 1-4/unsp chr kdny N18.3 Chronic kidney disease, stage 3 (moderate) E78.5 Hyperlipidemia, unspecified I10 Essential (primary) hypertension Office Visit 03/08/2019 1:00p [facility] Kaden López R07.9 Chest pain, Of Maggy Iglesias M.D., unspecified FAC, FASNH I10 Essential (primary) hypertension R94.31 Abnormal electrocardiogram [ECG] [EKG] 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 hypertension K59.00 Constipation, unspecified E03.9 Hypothyroidism, unspecified K21.9 Gastro-esophageal reflux disease without esophagitis Office Visit 02/08/2019 9:51a [facility] Leeann Guzman MD R07.89 Other chest pain Assoc,pc Hospitalists Office Visit 02/06/2019 9:41a [facility] Michelle R07.9 Chest pain, Assoc,pc MARIO ALBERTO Sanchez unspecified Hospitalists K59.00 Constipation, unspecified Office Visit 01/16/2019 [facility] Internal Brandee Mayfield, K21.9 Gastro-esophageal 3:00p Medicine - MD reflux disease without Ccmob esophagitis M81.0 Age-related osteoporosis w/o current pathological fracture M13.0 Polyarthritis, unspecified H81.03 Meniere's disease, bilateral Assessments Date Code Description Provider 06/23/2019 N17.9 Acute kidney failure, unspecified Hiral Corey MD 06/23/2019 I12.9 Hypertensive chronic kidney disease Hiral Corey MD with stage 1 through stage 4 chronic kidney disease, or unspecified chronic kidney disease 06/23/2019 E87.6 Hypokalemia Hiral Corey MD 06/23/2019 N18.4 Chronic kidney disease, stage 4 Hiral Corey MD (severe) 06/22/2019 S82.62xA Displaced fracture of lateral Jose [...] unspecified chronic kidney disease 04/04/2019 Z79.899 Other long-term (current) drug Caty Kearns M.D. therapy 04/04/2019 [...] R07.9 Chest pain, unspecified Kaden Iglesias M.D., [facility] 03/08/2019 I10 Essential (primary) hypertension Kaden Iglesias M.D., [facility] 03/08/2019 R94.31 Abnormal electrocardiogram [ECG] Kaden Iglesias M.D., [EKG] [facility] 03/08/2019 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 Iglesias M.D., ute coronary artery without angina [facility] pectoris 02/22/2019 I10 Essential (primary) hypertension Brandee Mayfield MD 02/14/2019 Z48.812 Encounter for surgical aftercare Markos Velasco M.D., [facility], following surgery on the circulatory [facility] system 02/14/2019 I10 Essential (primary) hypertension Markos Velasco M.D., [facility], [facility] 02/14/2019 I44.7 Left bundle-branch block, unspecified Markos Velasco M.D., [facility], [facility] 02/09/2019 I10 Essential (primary) hypertension [...] [EKG] 02/06/2019 R07.9 Chest pain, unspecified Michelle J[place], AEROLOGIST 02/06/2019 R07.89 Other chest pain Veto Chi MD, [facility] 02/06/2019 K59.00 Constipation, unspecified Michelle Laura, AEROLOGIST 01/16/2019 K21.9 Gastro-esophageal reflux disease Brandee Mayfield MD without esophagitis 01/16/2019 M81.0 Age-related osteoporosis without Brandee Mayfield MD current pathological fracture 01/16/2019 M13.0 Polyarthritis, unspecified Brandee Mayfield MD 01/16/2019 H81.03 Meniere's disease, bilateral Brandee Mayfield MD Plan of Treatment Future Appointment(s):07/07/2019 10:00 am - Hiral Corey MD at [facility] Hbdelsvexf66/31/2020 8:40 am - Ranjit Jarrett NP at [facility] Internal Medicine - [facility]08/10/2019 10:00 am - Cristóbal Biswas MD at [facility] - [facility]07/05/2019 1:45 pm - Jose Deras MD at [facility] at Pdojbn0206/27/2019 10:15 am - Claudia Slade MD at [facility] Tkxabzxywhs35/03/2020 10: 30 am - Michael Matos M.D. at [facility]07/18/2019 9 :10 am - Caty Kearns M.D. at [facility] Internal Medicine - Ccmob06/23/2019 - Hiral Corey MDN17.9 Acute kidney failure, unspecifiedNew Labs:Albumin, Ordered: 06/23/19Neph Routine, Ordered: 06/23/19Follow up:F/U in 2 weeks with labsI12.9 Hypertensive chronic kidney disease with stage 1 through stage 4 chronic kidney disease, or unspecified chronic kidney fwpokffJ55.6 OjdrmrrvymwB73.4 Chronic kidney disease, stage 4 (severe) Functional Status Description No Information Available Mental Status Description No Information Available Referrals Refer to Dr Reason for Referral Status Appt Date Zulay Ambrocio MD Sent 07/05/2019 [address], [place] [address] [phone] Claudia Slade MD Sent 06/27/[address] [place] [address], [place] [address] [phone] Rob Lovett MD Sent 08/01/2019 [address] [place] [address] [place] [address] [phone] Hiral Corey MD pls evaluate pt with recent decline in GFR Sent 03/[address] [place] [address] [phone]
[2019-06-27] MEDS ORDERED: Cyclobenzaprine TAB* 10 MG PO ONE (23:31)
[2019-06-28 00:40] LABS: ABS Lymphocytes 0.8 10^3/ul (1.0-4.8); ABS Monocytes 0.5 10^3/ul (0-0.8); ABS Neutrophils 6.7 10^3/ul (1.5-7.7); Eosinophil % 0.4 %; Hematocrit 30 % (35-47); Hemoglobin 10.2 g/dL (12.0-16.0); Lymphocyte % 10.2 %; Mean Corpuscular HGB Conc 34 g/dL (31-36); Mean Corpuscular Hemoglobin 30 pg (27-31); Mean Corpuscular Volume 87 fL (80-97); Mean Platelet Volume 6.8 fL (7.4-10.4); Platelet Count 356 10^3/uL (150-450); Red Cell Distribution Width 14 % (10-15); White Blood Count 8.1 10^3/uL (3.5-10.8)
[2019-06-28 01:01] LABS: Albumin/Globulin Ratio 1.7 (1-3); BUN/Creatinine Ratio 12.5 (8-20); C Reactive Protein 3.91 mg/L (<8.01); Calcium 8.5 mg/dL (8.6-10.3); EGFR African American 25.9 (>60); EGFR Non-African American 21.4 (>60); Globulin 2.3 g/dL (2-4); Potassium 3.1 mmol/L (3.5-5.0); Total Bilirubin 0.5 mg/dL (0.2-1.0); Total Protein 6.3 g/dL (6.4-8.9)
[2019-06-28] MEDS ORDERED: Potassium Chlor TAB* 20 MEQ TAB.ER PO ONE (01:05)
[2019-06-28] MEDS ORDERED: oxyCODONE TAB* 5 MG TAB PO ONE (01:07)
[2019-06-28 01:30] LABS: Troponin I 0.01 ng/mL (<0.03)
[2019-06-28] MEDS ORDERED: Cyclobenzaprine TAB* 10 MG PO ONE (01:43)
--- NOTE | 2019-06-28 03:38 | CONSULT ---
Consult Consult: I was asked to see Charlotte Asif due to c/o chest pain while in the ER. She initially presented to the ER due to pain in her L ankle that is currently casted due to a fracture. While in the ER she complained of chest discomfort. She thinks it may have been panic/anxiety related. She was however found to have a LBBB on EKG and this was thought to be new. In 01/2019, the patient presented to the ER for c/o chest pain. She was admitted and during her hospitalization she was found to have a LBBB and due to the c/o chest pain with the new LBBB underwent catheterization. She was found to have diffuse non- obstructing CAD. On exam, the patient's vital signs are stable. She is lying comfortably in bed. Cardiac exam reveals a nl S1S2 RRR, lungs are clear. L LE is not edematous (at the superior and inferior aspect of her cast). She does states the cast feels tight across the front of her ankle. At this time, the LBBB seen on EKG is not new but likely intermittent (seen in ) and given her cath not showing any obstructing CAD, I think the patient can be ruled out in the ER and ultimately go home. Additionally, her age adjusted d-dimer is negative and therefore does not need to be ruled out for PE. She should continue with life style modifications and follow up with her PCP for further management of her non-obstructing CAD. THe patient's creatinine is elevated above her baseline. She should avoid NSAIDS and follow up her labs with her PCP to ensure her creatinine returns to baseline.
[2019-06-28 06:02] VITALS: BP 131/57
--- NOTE | 2019-06-28 07:07 | ED ---
HPI Chest Pain - HPI Summary HPI Summary: This patient is a 74year old female with a history of panic attacks and recent ankle fracture, presenting with chest pain. I saw this patient with TEE Gillespie. Please see his HPI and ROS for further information. My physical exam: general patient sitting with no acute distress. Heart: S1 S2 RRR Lungs: CTA Negative cardiac cath. Plan: Initially it was thought that the patient was presenting with chest pain and new LBBB. However, per , the patient has a history of intermittent LBBB and was admitted for this in the past. Additionally, she had a recent cardiac catheterization in the past for the same, which was normal. Pt thought Sx were consistent with a previous panic attack. - History of Current Complaint Chief Complaint: EDExtremityLower Time Seen by Provider: 06/27/19 21:43 Pain Intensity: 2 Pain Scale Used: 0-10 Numeric - Additional Pertinent History Primary Care Physician: RAJENDRA - Allergy/Home Medications Allergies/Adverse Reactions: Allergies Allergy/AdvReac Type Severity Reaction Status Date / Time atenolol Allergy Wheezing Verified 06/27/19 09:01 captopril Allergy Coughing Verified 06/27/19 09:01 ciprofloxacin Allergy tendonitis Verified 06/27/19 09:01 clonidine Allergy Dizziness/i Verified 06/27/19 09:01 nsomnia erythromycin base Allergy GI Verified 06/27/19 09:01 Upset/hives iron Allergy SEVERE GI Verified 06/27/19 09:01 UPSET nifedipine Allergy Unknown Verified 06/27/19 09:01 Reaction Details nisoldipine Allergy Agitation Verified 06/27/19 09:01 Sulfa (Sulfonamide Allergy Hives Verified 06/27/19 09:01 Antibiotics) PMH/Surg Hx/FS Hx/Imm Hx Endocrine/Hematology History: Denies: Hx Diabetes Cardiovascular History: Reports: Hx Angioplasty, Hx Coronary Artery Disease, Hx Hypertension Denies: Hx Pacemaker/ICD Respiratory History: Reports: Hx Asthma - SEASONAL, Hx Sleep Apnea - DOES NOT USE HER C-PAP GI History: Reports: Hx Gastroesophageal Reflux Disease, Hx Irritable Bowel, Other GI Disorders - GASTRIC BYPASS STEVAN EN Y History: Reports: Hx Renal Disease, Other Problems/Disorders - UTI Denies: Hx Dialysis Musculoskeletal History: Reports: Hx Arthritis - NECK, SHOULDERS, Hx Fibromyalgia, Other Musculoskeletal History - FX 2 METATARSALS RIGHT FOOT 2010 Denies: Hx Osteoporosis Sensory History: Reports: Hx Cataracts - LENS IMPLANTS 2 YRS AGO, Hx Contacts or Glasses Denies: Hx Hearing Aid Opthamlomology History: Reports: Hx Cataracts - LENS IMPLANTS 2 YRS AGO, Hx Contacts or Glasses Neurological History: Reports: Hx Migraine, Other Neuro Impairments/Disorders - FIBROMYALGIA Psychiatric History: Reports: Hx Anxiety - ON MEDICATION FOR, Hx Depression - ON MEDICATION FOR Denies: Hx Panic Disorder - Cancer History Hx Chemotherapy: No Hx Radiation Therapy: No - Surgical History Surgery Procedure, Year, and Place: HERNIA REPAIR 06/18/18, BILATERAL CATARACTS, GASTRIC BYPASS 08/2010, INTERNAL HERNIA REPAIR 09/2011, DILATED STRICTURE &10/2011 , HEART CATH 05/2007, HYSTERECTOMY 10/1980, RT OVARY REMOVED 05/1984 CHOLECYSTECTOMY 12/1993, AND CYSTOCELE REPAIR 08/1994 Hx Anesthesia Reactions: No - Immunization History Date of Tetanus Vaccine: UTD Date of Influenza Vaccine: 02/2017 Immunizations Up to Date: Yes Infectious Disease History: No Infectious Disease History: Denies: Traveled Outside the [place] in Last 30 Days - Family History Known Family History: Positive: Cardiac Disease, Hypertension, Diabetes - Social History Alcohol Use: None Hx Substance Use: No Substance Use Type: Reports: None Hx Tobacco Use: No Smoking Status (MU): Never Smoked Tobacco Have You Smoked in the Last Year: No Physical Exam - Summary Physical Exam Summary: Constitutional: Well-developed, Well-nourished, Alert. (-) Distressed Skin: Warm, Dry HENT: Normocephalic; Atraumatic Eyes: Conjunctiva normal Neck: Musculoskeletal ROM normal neck. (-) JVD, (-) Stridor, (-) Tracheal deviation Cardio: Rhythm regular, rate normal, Heart sounds normal; Intact distal pulses; The pedal pulses are 2+ and symmetric. Radial pulses are 2+ and symmetric. (-) Murmur Pulmonary/Chest wall: Effort normal. (-) Respiratory distress, (-) Wheezes, (-) Rales Abd: Soft, (-) tenderness, (-) Distension, (-) Guarding, (-) Rebound Musculoskeletal: (-) Edema Lymph: (-) Cervical adenopathy Neuro: Alert, Oriented x3 Psych: Mood and affect Normal Vital Signs On Initial Exam: Initial Vitals Temp Pulse Resp BP Pulse Ox 97.7 F 80 19 166/71 96 01/28/20 21:25 06/27/19 21:25 06/27/19 21:25 06/27/19 21:25 06/27/19 21:25 Diagnostics - Vital Signs Vital Signs Temp Pulse Resp BP Pulse Ox 06/28/19 05:58 99.7 F 74 19 131/57 96 06/28/19 04:00 73 96 06/28/19 03:54 73 103/46 97 06/28/19 03:25 76 118/50 94 06/28/19 03:00 76 96 06/28/19 02:54 81 153/67 99 06/28/19 02:24 157 122/87 91 06/28/19 02:00 76 95 06/28/19 01:54 75 133/60 94 06/28/19 01:00 12 06/28/19 00:25 16 140/60 06/28/19 00:08 20 06/28/19 00:00 80 14 93 06/27/19 23:54 80 20 129/59 97 06/27/19 23:25 85 20 129/81 98 06/27/19 23:00 79 17 98 06/27/19 22:54 78 14 148/64 97 06/27/19 22:32 91 17 112/96 99 06/27/19 22:00 78 18 95 06/27/19 21:55 79 22 148/65 96 06/27/19 21:27 13 06/27/19 21:25 97.7 F 80 19 166/71 96 06/27/19 21:24 166/71 - Laboratory Lab Results: Lab Results 06/28/19 06/28/19 06/28/19 Range/Units 00:32 00:32 02:23 WBC 8.1 (3.5-10.8) 10^3/uL RBC 3.40 L (3.70-4.87) 10^6 /uL Hgb 10.2 L (12.0-16.0) g/dL Hct 30 L (35-47) % MCV 87 (80-97) fL MCH 30 (27-31) pg MCHC 34 (31-36) g/dL RDW 14 (10-15) % Plt Count 356 (150-450) 10^3/uL MPV 6.8 L (7.4-10.4) fL Neut % (Auto) 82.5 % Lymph % (Auto) 10.2 % [place] % (Auto) 6.6 % Eos % (Auto) 0.4 % Baso % (Auto) 0.3 % Absolute Neuts (auto) 6.7 (1.5-7.7) 10^3/ul Absolute Lymphs (auto) 0.8 L (1.0-4.8) 10^3/ul Absolute Monos (auto) 0.5 (0-0.8) 10^3/ul Absolute Eos (auto) 0.0 (0-0.6) 10^3/ul Absolute Basos (auto) 0.0 (0-0.2) 10^3/ul Absolute Nucleated RBC 0.0 10^3/ul Nucleated RBC % 0.0 D-Dimer, Quantitative 231 H (Less Than 230) ng/mL Sodium 137 (135-145) mmol/L Potassium 3.1 L (3.5-5.0) mmol/L Chloride 100 L (101-111) mmol/L Carbon Dioxide 27 (22-32) mmol/L Anion Gap 10 (2-11) mmol/L BUN 28 H (6-24) mg/dL Creatinine 2.24 H (0.51-0.95) mg/dL Est GFR ( Amer) 25.9 (>60) Est GFR (Non-Af Amer) 21.4 (>60) BUN/Creatinine Ratio 12.5 (8-20) Glucose 103 H (70-100) mg/dL Calcium 8.5 L (8.6-10.3) mg/dL Total Bilirubin 0.50 (0.2-1.0) mg/dL AST 18 (13-39) U/L ALT 16 (7-52) U/L Alkaline Phosphatase 66 (34-104) U/L Troponin I 0.01 (<0.03) ng/mL C-Reactive Protein 3.91 (<8.01) mg/L Total Protein 6.3 L (6.4-8.9) g/dL Albumin 4.0 (3.2-5.2) g/dL Globulin 2.3 (2-4) g/dL Albumin/Globulin Ratio 1.7 (1-3) 06/28/19 Range/Units 04:20 WBC (3.5-10.8) 10^3/uL RBC (3.70-4.87) 10^6 /uL Hgb (12.0-16.0) g/dL Hct (35-47) % MCV (80-97) fL MCH (27-31) pg MCHC (31-36) g/dL RDW (10-15) % Plt Count (150-450) 10^3/uL MPV (7.4-10.4) fL Neut % (Auto) % Lymph % (Auto) % [place] % (Auto) % Eos % (Auto) % Baso % (Auto) % Absolute Neuts (auto) (1.5-7.7) 10^3/ul Absolute Lymphs (auto) (1.0-4.8) 10^3/ul Absolute Monos (auto) (0-0.8) 10^3/ul Absolute Eos (auto) (0-0.6) 10^3/ul Absolute Basos (auto) (0-0.2) 10^3/ul Absolute Nucleated RBC 10^3/ul Nucleated RBC % D-Dimer, Quantitative (Less Than 230) ng/mL Sodium (135-145) mmol/L Potassium (3.5-5.0) mmol/L Chloride (101-111) mmol/L Carbon Dioxide (22-32) mmol/L Anion Gap (2-11) mmol/L BUN (6-24) mg/dL Creatinine (0.51-0.95) mg/dL Est GFR ( Amer) (>60) Est GFR (Non-Af Amer) (>60) BUN/Creatinine Ratio (8-20) Glucose (70-100) mg/dL Calcium (8.6-10.3) mg/dL Total Bilirubin (0.2-1.0) mg/dL AST (13-39) U/L ALT (7-52) U/L Alkaline Phosphatase (34-104) U/L Troponin I 0.01 (<0.03) ng/mL C-Reactive Protein (<8.01) mg/L Total Protein (6.4-8.9) g/dL Albumin (3.2-5.2) g/dL Globulin (2-4) g/dL Albumin/Globulin Ratio (1-3) Result Diagrams: 06/28/19 00:32 06/28/19 00:32 Lab Statement: Any lab studies that have been ordered have been reviewed, and results considered in the medical decision making process. Chest Pain Course/Dx - Course Course Of Treatment: Dr Gonzalez recommends admission for obs with repeat EKG, serial troponins, possibe V/Q scan and echo in am. - Diagnoses Provider Diagnoses: Ankle pain, left, Ankle fracture, lateral malleolus, closed, New onset left bundle branch block (LBBB), Chest pain Discharge ED - Discharge Plan Condition: Stable Disposition: HOME Prescriptions: Cyclobenzaprine TAB* [Flexeril 10 MG TAB*] 10 mg PO TID PRN 7 Days #21 tab PRN Reason: Spasms Oxycodone HCl 5 mg PO Q6H 2 Days #8 tablet MDD 4 tabs Patient Education Materials: Chest Pain (ED), Ankle Fracture (ED) Print Language: CITIZEN OF [place] Referrals: Flor Licona MD [Medical Doctor] - Caty Kearns MD [Primary Care Provider] - - Attestation Statements Document Initiated by Fco: Yes
--- NOTE | 2019-06-28 07:37 | ED ---
Progress - Progress Note Progress Note: This patient is a 74year old female with a history of panic attacks and recent ankle fracture, presenting with chest pain. I saw this patient with Carlos Eduardo Gillespie PAc. Please see his HPI and ROS for further information. My physical exam: general patient sitting with no acute distress. Heart: S1 S2 RRR Lungs: CTA Negative cardiac cath. Plan: Initially it was thought that the patient was presenting with chest pain and new LBBB. However, per , the patient has a history of intermittent LBBB and was admitted for this in the past. Additionally, she had a recent cardiac catheterization in the past for the same, which was normal. Pt thought Sx were consistent with a previous panic attack. Pt had two negative troponins and is stable for discharge. Course/Dx - Course Course Of Treatment: Dr Gonzalez recommends admission for obs with repeat EKG, serial troponins, possibe V/Q scan and echo in am. - Diagnoses Provider Diagnoses: Ankle pain, left, Ankle fracture, lateral malleolus, closed, New onset left bundle branch block (LBBB), Chest pain Discharge ED - Sign-Out/Discharge Documenting (check all that apply): Patient Departure - Discharge Plan Condition: Stable Disposition: HOME Prescriptions: Cyclobenzaprine TAB* [Flexeril 10 MG TAB*] 10 mg PO TID PRN 7 Days #21 tab PRN Reason: Spasms Oxycodone HCl 5 mg PO Q6H 2 Days #8 tablet MDD 4 tabs Patient Education Materials: Chest Pain (ED), Ankle Fracture (ED) Print Language: INDIAN Referrals: Flor Licona MD [Medical Doctor] - Caty Kearns MD [Primary Care Provider] - - Billing Disposition and Condition Condition: STABLE Disposition: Home - Attestation Statements Document Initiated by Fco: Yes Documenting Scribe: Sukh Bee Provider For Whom Fco is Documenting (Include Credential): Triny Perez MD Scribe Attestation: I, Sukh Bee, scribed for Triny Jackson MD on 06/28/19 at 1934. Scribe Documentation Reviewed: Yes Provider Attestation: The documentation as recorded by the [email or web address] accurately reflects the service I personally performed and the decisions made by me, Triny Jackson MD Status of Scribe Document: Viewed
== END 2019-06-28 07:27 | disposition home or self-care (01) ==
LOC: ED 21:16
DX: R07.9 Chest pain, unspecified (principal); S82.62XD Displaced fracture of lateral malleolus of left fibula, subsequent encounter for closed fracture with routine healing; X58.XXXD Exposure to other specified factors, subsequent encounter; I44.7 Left bundle-branch block, unspecified; I25.10 Atherosclerotic heart disease of native coronary artery without angina pectoris; I10 Essential (primary) hypertension; K21.9 Gastro-esophageal reflux disease without esophagitis; F41.9 Anxiety disorder, unspecified; F32.9 Major depressive disorder, single episode, unspecified; Z95.5 Presence of coronary angioplasty implant and graft; Z79.899 Other long term (current) drug therapy
CPT/HCPCS: 36415; 80053; 84484; 85025; 85379; 86140; 93005; 99284; A9270-GY

== ENCOUNTER 2019-07-05 12:18 | Day surgery (SDC) | payer MEDICARE, OTHER ==
[~2019-07-05 12:18] MED LIST changes: -Buffered Lidocaine 0.9% SYRIN* 5 ML/SYR SYRINGE INTRADERM ONE; +Buffered Lidocaine 1% SYRIN* 1 ML/SYRINGE INTRADERM ONE; +Lactated Ringers 1000 ML Bag* 1,000 ML IV SCH
[2019-07-05] MEDS ORDERED: ceFAZolin 2 GM PREMIX in ORs 2 GM/50 ML BAG ONE (13:15)
[2019-07-05] MEDS ORDERED: fentaNYL* 50 MCG/ML 2 ML VIAL (100 MCG VIAL) ONE (13:39)
[2019-07-05] MEDS ORDERED: ROPIVACAINE 5 MG/ML 30 ML BTL (0.5%) ONE (13:58)
[2019-07-05] MEDS ORDERED: Bupivacaine 0.5% W/EPI SDV* 10 ML VIAL INJ ONE (14:14)
[2019-07-05] MEDS ORDERED: Dexamethasone IV* 4 MG/ML 1 ML (4 MG) ONE (14:26)
[2019-07-05] MEDS ORDERED: Propofol* 10 MG/ML 20 ML BTL ONE (14:26)
[2019-07-05] MEDS ORDERED: Phenylephrine 40 MCG/ML SYRINGE ONE (14:27)
[2019-07-05] MEDS ORDERED: EPHEDrine (Pressors)* 50 MG/ML VIAL ONE (14:42)
[2019-07-05] MEDS ORDERED: Phenylephrine 10 MG/ML VIAL* 1 ML VIAL ONE (14:57)
[2019-07-05] MEDS ORDERED: Ondansetron INJ* 2 MG/ML VIAL ONE (15:06)
[2019-07-05] MEDS ORDERED: Ketorolac INJ* 30 MG/ML 1 ML VIAL ONE (15:06)
[2019-07-05] MEDS ORDERED: Metoclopramide IV* 5 MG/ML 2 ML VIAL ONE (15:06)
[2019-07-05] MEDS ORDERED: Acetaminophen TAB* 325 MG PO PRN (15:24)
[2019-07-05] MEDS ORDERED: Naloxone* 0.4 MG/ML 1 ML VIAL IV PRN (15:24)
[2019-07-05] MEDS ORDERED: DiMENhydriNATE IV* 50 MG/ML VIAL IV PUSH PRN (15:24)
[2019-07-05] MEDS ORDERED: fentaNYL* 50 MCG/ML 2 ML VIAL (100 MCG VIAL) IV PRN (15:24)
[2019-07-05 17:51] VITALS: BP 124/60
--- NOTE | 2019-07-05 19:33 | OP ---
DATE OF OPERATION: 07/05/19 [facility] DATE OF : 47 SURGEON: Jose Deras MD DIRECTOR OF EVENTS: TEE Mayes. A physician export sales assistant was required for the length of the procedure for assistance with patient positioning, retraction, instrumentation, and closure. ANESTHESIOLOGIST: Dr. Baldomero Hernandez. ANESTHESIA: General anesthesia, regional anesthesia. PRE-OP DIAGNOSES: 1. Left ankle lateral malleolus fracture. 2. Left ankle possible syndesmosis injury. POST-OP DIAGNOSES: 1. Left ankle lateral malleolus fracture, displaced. 2. No unstable left ankle syndesmosis injury. OPERATIVE PROCEDURE: 1. Open reduction and internal fixation left ankle lateral malleolus fracture. 2. Examination under fluoroscopy, radiography, left ankle syndesmosis. ANTIBIOTICS: Ancef 2 g IV. IV FLUIDS: See anesthesia note. SKIN TO SKIN TIME: 65 minutes. TOURNIQUET TIME: 74 minutes at 300 mmHg, left thigh tourniquet. SPECIMEN: None. IMPLANTS: Wildfang one third tubular 7 hole plate filled with four 3.5 mm locking screws and two 3.5 mm nonlocking cortical screws. There was also a 3.5 cortical screw placed using lag technique from posterior and distal to proximal and anterior. ESTIMATED BLOOD LOSS: Minimal. COMPLICATIONS: None. INDICATIONS FOR PROCEDURE: The patient is a 74-year-old woman who injured herself 2 weeks and 0 days preoperatively on 06/22/19, who was found by radiograph to have a severely displaced left ankle lateral malleolus fracture. Discussed surgery. Discussed risks and potential complications of surgery. Casted the patient in clinic and told her to elevate that left lower extremity. DESCRIPTION OF PROCEDURE: In preoperative holding, the patient signed a written consent. Operative extremities marked in preoperative holding. The patient underwent regional nerve block by Dr. Hernandez in preoperative holding. The patient was taken back to the operating room and placed supine on the operating room table. Sedated and intubated. Mcdade bump placed under the left hemipelvis. Tourniquet placed about the left proximal thigh. A bone foam was utilized. Left lower extremity was prepped and draped. Formal surgical time-out performed. Esmarch was applied and tourniquet was elevated. Standard skin incision, hockey-stick type was made on the lateral ankle to just 10 cm proximal to the distal end of the lateral malleolus. Dissected through subcutaneous tissue. Distally dissected down to bone. Dissected down to bone carefully from distal to proximally, looking out for any branches of the superficial peroneal nerve. I opened the fracture site. Debrided it. Irrigation. Placed a bone clamp. Performed reduction maneuver. Anatomic appearing reduction. Using lag technique, placed a 3.5 mm screw from posterior and distal to anterior and proximal across the fracture site. This held reduction nicely. Decided on one third tubular plate 7 holes in length. It was contoured. It was applied to bone. I placed one nonlocking screw proximal and one distal. I brought mini C-arm in and confirmed adequacy of plate position and reduction. I placed two nonlocking screws total and two locking screws proximal to the fracture. I also placed two locking screws distal to the fracture. One nonlocking screw was converted into a locking screw distally. Prior to the placement of my final screw proximally, I performed stress testing of the syndesmosis. While taking x-rays using the mini C-arm, I performed external rotation stress testing as well as a Cotton test. Neither showed any change in the tibiofibular clear spaces or the medial tibial clear space. This indicated that the syndesmosis was stable and no syndesmotic screw was required. Irrigation. Closure of the fascia in several locations using [id number] stitches using Vicryl 2.0 suture. Tight closure of the subcutaneous tissue with buried simple stitches using Vicryl 3.0 suture. Closure of the skin with a running stitch using nylon 3.0 suture. No local anesthetic. Xeroform, 4x4s, ABDs, sterile Webril, nonsterile Webril. Splint was applied with a posterior slab and then a sugar tong slab using plaster. Overwrapped with an Asher bandage. Tourniquet was now dropped. The patient was awakened, extubated and transferred to the PACU. The patient was to be discharged home when medically stable. Wound care instructions provided namely that the splint is to remain in place at all times. Left lower extremity is nonweightbearing. The patient will follow up with me in 10 to 14 days postoperatively. The patient will receive Percocet as needed for a pain control. She will receive 5 days of Keflex antibiotics as prophylaxis. We will provide her with low-dose aspirin b.i.d. for DVT prophylaxis. [id number]/[facility] #: [id number] [facility] C[facility]ERStefania
== END 2019-07-05 17:56 | disposition home or self-care (01) ==
LOC: OR 12:18
PROVIDERS: ATTEND Orthopaedic Surgery
DX: S82.62XA Displaced fracture of lateral malleolus of left fibula, initial encounter for closed fracture (principal); W19.XXXA Unspecified fall, initial encounter; Y92.9 Unspecified place or not applicable; I25.10 Atherosclerotic heart disease of native coronary artery without angina pectoris; G89.18 Other acute postprocedural pain; I12.9 Hypertensive chronic kidney disease with stage 1 through stage 4 chronic kidney disease, or unspecified chronic kidney disease; I44.7 Left bundle-branch block, unspecified; M19.90 Unspecified osteoarthritis, unspecified site; N18.4 Chronic kidney disease, stage 4 (severe)
CPT/HCPCS: 76000; C1713; C1776; J0690; J1100; J1885; J2405; J2704; J2765; J2795; J3010

== ENCOUNTER 2020-11-04 06:03 | Inpatient (IN) ==
[~2020-11-04 06:03] MED LIST changes: +Buffered Lidocaine 1% SYRIN 1 ml INTRADERM ONE; -Buffered Lidocaine 1% SYRIN* 1 ML/SYRINGE INTRADERM ONE; +Clindamycin 900 MG/D5W BAG 900 MG/50 ML BAG IVPB ONE; -Lactated Ringers 1000 ML Bag* 1,000 ML IV SCH; +Lactated Ringers 1000 ml BAG 1,000 ML IV SCH
[2020-11-04] MEDS ORDERED: fentaNYL 250 mcg/5 ml 50 MCG/ML 5 ml VIAL (250 MCG) ONE (07:09)
[2020-11-04] MEDS ORDERED: Remifentanil 2 MG VIAL ONE (07:09)
[2020-11-04] MEDS ORDERED: Midazolam 2 mg/2 ml VIAL 1 mg/ml 2 ml VIAL (2 mg) ONE (07:09)
[2020-11-04] MEDS ORDERED: Ketamine HCL 50 mg/ml 10 ml VIAL (500 MG) ONE (07:10)
[2020-11-04] MEDS ORDERED: Propofol 0 MG/0 ML BTL ONE (07:11)
[2020-11-04] MEDS ORDERED: Propofol 10 mg/ml 100 ML BTL 100 ML ONE (07:11)
[2020-11-04] MEDS ORDERED: Bacitracin OINTMENT TUBE ONE (07:16)
[2020-11-04] MEDS ORDERED: Lidocaine 1% w EPI 1:200,000 SDV 30 ML VIAL ONE (07:16)
[2020-11-04] MEDS ORDERED: Bacitracin INJECTION 50,000 UNITS ONE (07:16)
[2020-11-04] MEDS ORDERED: ceFAZolin VIAL VIAL ONE (07:16)
[2020-11-04] MEDS ORDERED: Rocuronium 50 mg VIAL 10 mg/ml 5 ml VIAL (50 mg) ONE ×2 (07:22→09:12)
[2020-11-04] MEDS ORDERED: Thrombin 5,000 UNITS(BOVINE) for Ultrasound Guided Pseudoaneursym ONE (07:24)
[2020-11-04] MEDS ORDERED: Gelfoam Sponge SIZE 100 SPONGE ONE (07:25)
[2020-11-04 07:37] LABS: CO2 Carbon Dioxide 27 mmol/L (22-32); Calcium 10.1 mg/dL (8.6-10.3); Chloride 104 mmol/L (101-111); Sodium 137 mmol/L (135-145)
[2020-11-04 07:43] LABS: Blood Urea Nitrogen 41 mg/dL (6-24); EGFR African American 26.8 (>60); EGFR Non-African American 22.2 (>60); Glucose 96 mg/dL (70-100)
[2020-11-04] MEDS ORDERED: Vancomycin 1,000 MG VIAL ONE ×2 (07:56→08:43)
[2020-11-04] MEDS ORDERED: CLINDAMYCIN ONE (08:00)
[2020-11-04] MEDS ORDERED: fentaNYL 100 mcg/2 ml 50 MCG/ML VIAL IV PRN (08:01)
[2020-11-04] MEDS ORDERED: DiMENhydriNATE IV 50 mg/ml 1 ml VIAL IV PUSH PRN (08:01)
[2020-11-04] MEDS ORDERED: Naloxone 0.4 mg VIAL 0.4 mg/ml 1 ml VIAL IV PRN (08:01)
[2020-11-04] MEDS ORDERED: Clindamycin VIAL 8 ML ONE (08:06)
[2020-11-04 08:34] LABS: Anion Gap 6 mmol/L (2-11)
[2020-11-04] MEDS ORDERED: Phenylephrine IV 10 MG/ML 1 ml VIAL ONE (08:45)
[2020-11-04] MEDS ORDERED: EPHEDrine (Pressors) 50 MG/ML VIAL ONE ×2 (09:00→10:55)
[2020-11-04] MEDS ORDERED: Dexamethasone IV 4 MG/ML VIAL 1 ml VIAL ONE (09:18)
[2020-11-04] MEDS ORDERED: Lidocaine 2% PF 5 ML VIAL ONE (09:20)
[2020-11-04] MEDS ORDERED: Acetaminophen IV 1 GM/100ML 100 ML ONE (09:20)
[2020-11-04] MEDS ORDERED: Ondansetron 4 mg VIAL 2 MG/ML 2 ml VIAL ONE (09:20)
[2020-11-04] MEDS ORDERED: Polyethylene Glycol 3350 17 GM PACKET PO PRN (11:54)
[2020-11-04] MEDS ORDERED: Albuterol 2.5mg/3 ml (0.083%) NEB.SOLN INH PRN (11:54)
[2020-11-04] MEDS ORDERED: NS 0.9% 1000 ml BAG 1,000 ML IV SCH (12:00)
[2020-11-04] MEDS ORDERED: Acetaminophen IV 1 GM/100ML 100 ML IVPB SCH (12:00)
[2020-11-04] MEDS ORDERED: Olopatadine 0.2% (NF) 1 DROP BTL BOTH EYES PRN (12:01)
[2020-11-04] MEDS ORDERED: Denosumab 60 MG/ML SYRINGE SUBCUT SCH (12:15)
[2020-11-04] MEDS ORDERED: Fluticasone NASAL SPRAY 50MCG 16 gm SPRAY BTL BOTH NARES PRN (16:03)
[2020-11-04] MEDS: Clindamycin 900 MG/D5W BAG 900 MG/50 ML BAG IVPB SCH (17:14)
[2020-11-04] MEDS: Acetaminophen IV 1 GM/100ML 100 ML IVPB SCH (17:49)
[2020-11-04] MEDS: Dexamethasone IV 4 MG/ML VIAL 1 ml VIAL IV SLOW PU SCH ×2 (17:51→21:04)
[2020-11-04] MEDS: Potassium Chlor 20 meq TAB.ER PO SCH (21:03)
[2020-11-04] MEDS: Magnesium Hydroxide LIQ 30 ML UDC PO SCH (21:04)
[2020-11-04] MEDS: Morphine 2 MG/ML SYRINGE IV PRN (23:59)
[2020-11-05] MEDS: Clindamycin 900 MG/D5W BAG 900 MG/50 ML BAG IVPB SCH ×3 (00:06→17:35)
[2020-11-05] MEDS: Acetaminophen IV 1 GM/100ML 100 ML IVPB SCH ×2 (02:58→10:49)
[2020-11-05 05:26] LABS: ABS Lymphocytes 0.1 10^3/ul (1.0-4.8); ABS Monocytes 0.2 10^3/ul (0-0.8); ABS Neutrophils 14.2 10^3/ul (1.5-7.7); Hematocrit 31 % (35-47); Hemoglobin 10.4 g/dL (12.0-16.0); Mean Corpuscular HGB Conc 34 g/dL (31-36); Mean Corpuscular Hemoglobin 33 pg (27-31); Mean Corpuscular Volume 96 fL (80-97); Mean Platelet Volume 7.9 fL (7.4-10.4); Platelet Count 222 10^3/uL (150-450); Red Blood Count 3.19 10^6 /uL (3.70-4.87); Red Cell Distribution Width 13 % (10-15); White Blood Count 14.6 10^3/uL (3.5-10.8)
[2020-11-05] MEDS: Dexamethasone IV 4 MG/ML VIAL 1 ml VIAL IV SLOW PU SCH ×2 (05:31→14:26)
[2020-11-05 05:49] LABS: Calcium 8.4 mg/dL (8.6-10.3); EGFR African American 29.1 (>60); EGFR Non-African American 24.1 (>60); Magnesium 2.3 mg/dL (1.9-2.7); Phosphorus 3.6 mg/dL (2.5-5.0)
[2020-11-05 06:00] LABS: Potassium 5.1 mmol/L (3.5-5.0)
[2020-11-05] MEDS: Magnesium Hydroxide LIQ 30 ML UDC PO SCH ×2 (09:25→21:37)
[2020-11-05] MEDS: Potassium Chlor 20 meq TAB.ER PO SCH ×2 (09:25→21:37)
[2020-11-05] MEDS: Vitamin THERAPEUTIC TAB PO SCH (09:25)
[2020-11-05] MEDS: DULoxetine DR 30 mg CAP PO SCH (09:25)
[2020-11-05] MEDS: Enoxaparin 30 MG/0.3 ML SYR SUBCUT SCH (09:34)
[2020-11-05] MEDS: Morphine 2 MG/ML SYRINGE IV PRN ×2 (14:32→17:53)
[2020-11-06] MEDS: Clindamycin 900 MG/D5W BAG 900 MG/50 ML BAG IVPB SCH ×3 (01:39→17:14)
[2020-11-06 06:19] LABS: ABS Lymphocytes 0.3 10^3/ul (1.0-4.8); ABS Monocytes 0.7 10^3/ul (0-0.8); Hematocrit 31 % (35-47); Hemoglobin 10.2 g/dL (12.0-16.0); Lymphocyte % 1.8 %; Mean Corpuscular HGB Conc 33 g/dL (31-36); Mean Corpuscular Hemoglobin 32 pg (27-31); Mean Corpuscular Volume 97 fL (80-97); Mean Platelet Volume 8.3 fL (7.4-10.4); Nucleated Red Blood Cells % 0.1; Platelet Count 209 10^3/uL (150-450); Red Blood Count 3.17 10^6 /uL (3.70-4.87); Red Cell Distribution Width 14 % (10-15); White Blood Count 14.9 10^3/uL (3.5-10.8)
[2020-11-06 06:50] LABS: Calcium 7.8 mg/dL (8.6-10.3); EGFR African American 28.8 (>60); EGFR Non-African American 23.8 (>60); Magnesium 2.7 mg/dL (1.9-2.7)
[2020-11-06 06:56] LABS: Potassium 5.5 mmol/L (3.5-5.0)
[2020-11-06] MEDS: Potassium Chlor 20 meq TAB.ER PO SCH (07:51)
[2020-11-06] MEDS: Magnesium Hydroxide LIQ 30 ML UDC PO SCH ×2 (08:03→21:04)
[2020-11-06] MEDS: Vitamin THERAPEUTIC TAB PO SCH (08:05)
[2020-11-06] MEDS: DULoxetine DR 30 mg CAP PO SCH (08:05)
[2020-11-06] MEDS: Enoxaparin 30 MG/0.3 ML SYR SUBCUT SCH (09:44)
[2020-11-06] MEDS: Ondansetron 4 mg VIAL 2 MG/ML 2 ml VIAL IV PRN (15:49)
[2020-11-06] MEDS ORDERED: Magnesium Hydroxide LIQ 30 ML UDC PO ONE (16:11)
[2020-11-07] MEDS: Clindamycin 900 MG/D5W BAG 900 MG/50 ML BAG IVPB SCH ×2 (00:53→09:09)
[2020-11-07 04:57] LABS: ABS Lymphocytes 0.6 10^3/ul (1.0-4.8); ABS Monocytes 0.5 10^3/ul (0-0.8); ABS Neutrophils 6.6 10^3/ul (1.5-7.7); Eosinophil % 0.3 %; Hematocrit 34 % (35-47); Hemoglobin 11.3 g/dL (12.0-16.0); Lymphocyte % 7.8 %; Mean Corpuscular HGB Conc 34 g/dL (31-36); Mean Corpuscular Hemoglobin 33 pg (27-31); Mean Corpuscular Volume 97 fL (80-97); Mean Platelet Volume 7.7 fL (7.4-10.4); Platelet Count 234 10^3/uL (150-450); Red Blood Count 3.47 10^6 /uL (3.70-4.87); Red Cell Distribution Width 14 % (10-15); White Blood Count 7.7 10^3/uL (3.5-10.8)
[2020-11-07 05:12] LABS: Calcium 8.1 mg/dL (8.6-10.3); EGFR African American 31.1 (>60); EGFR Non-African American 25.7 (>60); Magnesium 3.1 mg/dL (1.9-2.7); Phosphorus 2.6 mg/dL (2.5-5.0); Potassium 4.1 mmol/L (3.5-5.0)
[2020-11-07] MEDS: Magnesium Hydroxide LIQ 30 ML UDC PO SCH (08:55)
[2020-11-07] MEDS: Vitamin THERAPEUTIC TAB PO SCH (08:56)
[2020-11-07] MEDS: DULoxetine DR 30 mg CAP PO SCH (08:56)
[2020-11-07] MEDS: Enoxaparin 30 MG/0.3 ML SYR SUBCUT SCH (08:58)
[2020-11-07] MEDS: Ondansetron 4 mg VIAL 2 MG/ML 2 ml VIAL IV PRN (09:06)
[2020-11-07 10:11] VITALS: BP 131/44
== END 2020-11-07 11:10 | disposition home health service (06) ==
LOC: AA 06:03 → SSU 12:51
PROVIDERS: ADMIT Neurological Surgery; ATTEND Neurological Surgery

== ENCOUNTER 2020-11-08 11:48 | Observation (INO) ==
[2020-11-08] MEDS ORDERED: Dexamethasone IV 4 MG/ML VIAL 1 ml VIAL IV SLOW PU ONE (11:57)
[2020-11-08] MEDS ORDERED: Acetaminophen IV 1 GM/100ML 1,000 MG/100 ML VIAL IVPB ONE (11:57)
[2020-11-08] MEDS ORDERED: Orphenadrine Citrate INJ 30 mg/ml 2 ml VIAL (60 mg) IV ONE (11:58)
[2020-11-08] MEDS ORDERED: Morphine 4 MG/ML VIAL (1 ml) IV ONE (14:10)
[2020-11-08] MEDS ORDERED: Polyethylene Glycol 3350 17 GM PACKET PO PRN (17:29)
[2020-11-08] MEDS ORDERED: Ondansetron 4 mg VIAL 2 MG/ML 2 ml VIAL IV PRN (17:30)
[2020-11-08] MEDS ORDERED: Fluticasone NASAL SPRAY 50MCG 16 gm SPRAY BTL INTRANASAL PRN (17:31)
[2020-11-08] MEDS ORDERED: Mupirocin 2% OINT TUBE TOPICAL PRN (17:31)
[2020-11-08] MEDS ORDERED: Enoxaparin 30 MG/0.3 ML SYR SUBCUT SCH (18:00)
[2020-11-08] MEDS: Magnesium Hydroxide LIQ 30 ML UDC PO SCH (21:19)
[2020-11-08] MEDS: Potassium Chlor 20 meq TAB.ER PO SCH (21:20)
[2020-11-08] MEDS: Enoxaparin 30 MG/0.3 ML SYR SUBCUT SCH (21:21)
[2020-11-08] MEDS: Acetaminophen IV 1 GM/100ML 100 ML IVPB SCH (21:43)
[2020-11-08] MEDS: NS 0.9% 1000 ml BAG 1,000 ML IV SCH (21:43)
[2020-11-08] MEDS: Dexamethasone IV 4 MG/ML VIAL 1 ml VIAL IV SLOW PU SCH (21:50)
[2020-11-09] MEDS: Acetaminophen IV 1 GM/100ML 100 ML IVPB SCH ×2 (05:44→15:06)
[2020-11-09] MEDS: Dexamethasone IV 4 MG/ML VIAL 1 ml VIAL IV SLOW PU SCH ×3 (05:44→21:56)
[2020-11-09] MEDS: DULoxetine DR 30 mg CAP PO SCH (09:59)
[2020-11-09] MEDS: Vitamin THERAPEUTIC TAB PO SCH (10:00)
[2020-11-09] MEDS: Potassium Chlor 20 meq TAB.ER PO SCH ×2 (10:01→20:04)
[2020-11-09] MEDS: Magnesium Hydroxide LIQ 30 ML UDC PO SCH ×2 (10:01→20:04)
[2020-11-09] MEDS ORDERED: Calcium/Vitamin D TAB 250/125 TAB PO SCH (10:27)
[2020-11-09] MEDS: NS 0.9% 1000 ml BAG 1,000 ML IV SCH (12:44)
[2020-11-09] MEDS ORDERED: Sodium Phosphate ADULT ENEMA 133 ML BTL PR ONE (16:30)
[2020-11-09 17:04] LABS: ABS Lymphocytes 0.2 10^3/ul (1.0-4.8); ABS Monocytes 0.6 10^3/ul (0-0.8); Hematocrit 33 % (35-47); Hemoglobin 11.2 g/dL (12.0-16.0); Lymphocyte % 2.4 %; Mean Corpuscular HGB Conc 34 g/dL (31-36); Mean Corpuscular Hemoglobin 32 pg (27-31); Mean Corpuscular Volume 95 fL (80-97); Mean Platelet Volume 7.4 fL (7.4-10.4); Platelet Count 274 10^3/uL (150-450); Red Blood Count 3.46 10^6 /uL (3.70-4.87); Red Cell Distribution Width 13 % (10-15); White Blood Count 8.8 10^3/uL (3.5-10.8)
[2020-11-09 18:52] LABS: Potassium 4.7 mmol/L (3.5-5.0)
[2020-11-09 18:58] LABS: EGFR Non-African American 26.5 (>60)
[2020-11-09] MEDS: Enoxaparin 30 MG/0.3 ML SYR SUBCUT SCH (20:04)
[2020-11-10] MEDS: NS 0.9% 1000 ml BAG 1,000 ML IV SCH (06:09)
[2020-11-10] MEDS: DULoxetine DR 30 mg CAP PO SCH (08:59)
[2020-11-10] MEDS: Vitamin THERAPEUTIC TAB PO SCH (09:00)
[2020-11-10] MEDS: Potassium Chlor 20 meq TAB.ER PO SCH (09:02)
[2020-11-10] MEDS: Magnesium Hydroxide LIQ 30 ML UDC PO SCH (12:08)
[2020-11-10 15:33] VITALS: BP 148/61
== END 2020-11-10 16:15 | disposition home or self-care (01) ==
LOC: SSU 11:48 → ED 11:48 → SSU 18:29
PROVIDERS: ADMIT Neurological Surgery; ATTEND Neurological Surgery

== ENCOUNTER 2023-09-20 19:40 | Observation (INO) ==
[2023-09-20 20:19] LABS: ABS Lymphocytes 0.7 10^3/uL (1.0-4.8); ABS Monocytes 0.5 10^3/uL (0.0-0.9); ABS Neutrophils 6.5 10^3/uL (1.5-7.6); Eosinophil % 0.5 %; Hematocrit 38.6 % (35-45); Hemoglobin 12.9 g/dL (11.5-14.3); Lymphocyte % 8.4 %; Mean Corpuscular Hemoglobin 31.4 pg (27-33); Mean Corpuscular Hgb Conc 33.4 g/dL (31-36); Platelet Count 282 10^3/uL (150-450); Red Blood Count 4.11 10^6/uL (3.63-4.92); Red Cell Distribution Width 12.5 % (12-17); White Blood Count 7.8 10^3/uL (3.8-11.8)
[2023-09-20 20:30] LABS: Activated Partial Thrombo Time 30.5 seconds (26.0-38.0); INR 0.96 (0.83-1.13)
[2023-09-20] MEDS: NS 0.9% 1000 ml BAG 1,000 ML IV ONE (20:31)
[2023-09-20 20:53] LABS: Albumin 4.9 g/dL (3.2-5.2); Albumin/Globulin Ratio 2.2 (1-3); Calcium 10.2 mg/dL (8.6-10.3); Creatinine, Serum 1.9 mg/dL (0.51-0.95); Direct Bilirubin 0.1 mg/dL (0.03-0.18); Globulin 2.2 g/dL (2-4); HDL Cholesterol 79.9 mg/dL; Indirect Bilirubin 0.3 mg/dL (0.3-1.0); Potassium 3.6 mmol/L (3.5-5.0); Total Bilirubin 0.4 mg/dL (0.2-1.0); Total Protein 7.1 g/dL (6.4-8.9); eGFR CKD-EPI 26.9 (>60)
[2023-09-20 21:40] LABS: High Sensitivity Troponin 1 Hr 5 pg/mL (<15)
[2023-09-20 21:58] LABS: Urine Appearance Clear; Urine Bilirubin Negative (Negative); Urine Blood Negative (Negative); Urine Color Light-Yellow; Urine Glucose Negative (Negative); Urine Ketones Negative (Negative); Urine Nitrite Negative (Negative); Urine Protein Negative (Negative); Urine Specific Gravity 1.012 (1.002-1.030); Urine Urobilinogen Negative (Negative)
[2023-09-20 22:11] LABS: Urine Bacteria Absent /HPF (Absent); Urine Red Blood Cell Trace(0-2/hpf) /HPF (0-Trace); Urine Squamous Epithelial Cell Present /HPF (Absent); Urine White Blood Cell 1+(6-10/hpf) /HPF (0-Trace)
[2023-09-21] MEDS: Albuterol HFA INHALER 8 gm MDI INH PRN (01:27)
[2023-09-21] MEDS: Midazolam 10 mg/10 ml VIAL 1 mg/ml 10 ml VIAL (10 mg) IV SLOW PU ONE (02:05)
[2023-09-21] MEDS: DULoxetine DR 30 mg CAP PO SCH (08:21)
[2023-09-22] MEDS: Enoxaparin 60 MG/0.6 ML SYR SUBCUT SCH (02:03)
[2023-09-22] MEDS: Aspirin EC 81 mg TAB.EC (enteric coated) PO SCH (02:04)
[2023-09-22 04:45] LABS: Calcium 10.1 mg/dL (8.6-10.3); Creatinine, Serum 1.75 mg/dL (0.51-0.95); HDL Cholesterol 74.5 mg/dL; Potassium 3.5 mmol/L (3.5-5.0); eGFR CKD-EPI 29.6 (>60)
[2023-09-22 09:20] VITALS: BP 154/69
== END 2023-09-22 12:45 | disposition home or self-care (01) ==
LOC: ED 19:40 → EDHOLD 19:40 → SUATTDRO 21:37 → MED 09-22 08:27
PROVIDERS: ADMIT Internal Medicine; ATTEND Student in an Organized Health Care Education/Training Program